=== PATIENT | female | born 1960 | race Caucasian/White ===

== ENCOUNTER 2022-10-30 12:16 | Inpatient (IN) ==
[2022-10-30] MEDS ORDERED: SODIUM CHLORIDE 0.9% 1000ML 1,000 ML IV ONE (14:35)
[2022-10-30] MEDS ORDERED: MoRPHine SULFATE 10 MG/ML CARP/VIAL IV STA (14:35)
[2022-10-30] MEDS ORDERED: ONDANSETRON INJ 2 MG/ML 2 ML VIAL IV SCH (14:35)
[2022-10-30] MEDS ORDERED: ONDANSETRON INJ 2 MG/ML 2 ML VIAL IV STA (14:35)
[2022-10-30] MEDS ORDERED: MoRPHine SULFATE 10 MG/ML CARP/VIAL IV SCH (14:35)
--- NOTE | 2022-10-30 14:38 | Emergency Department Note ---
Impression & Plan Abdominal pain ED Provider Note NAME: BAKARI NGO AGE: 62 SEX: F : 1960 ARRIVES VIA: Walk-In INFORMANT: Patient ED PROVIDER(S): Gianni Cueto DO CHIEF COMPLAINT: abdominal pain HPI: Patient is a 62-year-old female who presents ER for periumbilical abdominal pain that radiates through to the back. Its associated with nausea and vomiting. She had this about a month ago and was diagnosed with pancreatitis. She notes that since then she was doing better until about 2 to 3 days ago. She notes she has been unable to keep anything down since then. She is not eating or drinking. Denies any chest pain or shortness of breath. No dysuria, urgency, or frequency. No other exacerbating or remitting factors. PAST MEDICAL HISTORY:See Below PAST SURGICAL HISTORY:See Below FAMILY HISTORY:See Below SOCIAL HISTORY:See Below HOME MEDICATIONS:See Below ALLERGIES:See Below VITALS:See Below PHYSICAL EXAMINATION: GENERAL: Sitting up in bed, alert, moderate distress holding abdomen EYE EXAM: normal conjunctiva. OROPHARYNX: mucous membranes are moist NECK: supple, no nuchal rigidity, no adenopathy, non-tender LUNGS: Clear to auscultation. Normal chest wall mechanics HEART: no murmurs, S1 normal and S2 normal ABDOMEN: abdomen soft, TTP throughout abdomen, normo-active bowel sounds, no masses, no rebound or guarding. BACK: Back is symmetrical on inspection and there is no deformity, no midline tenderness, no CVA tenderness. SKIN: no rashes and no bruising UPPER EXTREMITIES: upper extremities are grossly normal. LOWER EXTREMITIES: No pitting edema. NEURO EXAM: Normal sensorium, cranial nerves II-XII grossly intact, normal speech, no gross weakness of arms, no gross weakness of legs. MEDICAL DECISION MAKING: Patient is a 62-year-old female who presents ER for periumbilical abdominal pain radiating through to the back. IV was established blood work was obtained. Labs show mild leukopenia 4.3. No significant anemia. BMP along with LFTs bilirubin and lipase is unremarkable. UA was unremarkable. CT of the abdomen pelvis shows thickening of the colon. No obstruction. Patient was given IV fluids and morphine x2. She is also given Zofran. Still unable to eat or drink. Discussed with patient and the hospitalist Dr. Lorena Garcia for further evaluation management and treatment. Triage Nursing notes reviewed. Limited review of prior medical records performed Vital Signs: reviewed and remarkable for HTN Differential diagnosis: Differential diagnoses includes but is not limited to gastritis, peptic ulcer disease, GERD, gallbladder disease, pancreatitis, small bowel obstruction, appendicitis, diverticulitis, hernia, urinary tract infection, torsion, perforation, trauma, infectious. ER treatment provided: See below Diagnostics interpreted by me include EKG and cardiac monitoring as listed below: -Cardiac Monitoring: An order was placed for continuous cardiac monitoring. The monitor shows a rate of 70 with sinus rhythm. -ECG: none -Laboratory studies:Interpreted by me as stated above in MDM and shown below. Imaging studies: Xrays: As interpreted by me:none CTs show: CT abdomen pelvis per my read showed no obvious bowel obstruction Consultation(s): As described in MDM Procedures:none Critical Care: None Past Med/Surg History Medical History (Updated 10/30/22 @ 18:23 by Gianni Cueto DO) IBS (irritable bowel syndrome) Surgical History (Updated 09/27/21 @ 12:04 by Hayden Paula MA) H/O cardiac catheterization H/O hernia repair H/O tubal ligation H/O: hysterectomy Hx of cholecystectomy S/P coronary artery stent placement Family History (Updated 09/27/21 @ 12:06 by Hayden Paula MA) Mother Hypertension Respiratory arrest Coronary heart disease Father Cancer Sister Diabetes Multiple sclerosis Social History (Updated 02/25/20 @ 13:13 by Jovanna Cook) Smoking Status: Former smoker packs per day: 1; Hx Alcohol Use: No Hx Substance Use: No Preferred Language: Estonian Feels Safe at Home: Yes Allergies Allergies Allergy/AdvReac Type Severity Reaction Status Date / Time bupropion [From Wellbutrin] Allergy Mild Hallucinati Verified 10/30/22 15:47 ng dicyclomine [From Bentyl] Allergy Mild Vomiting Verified 10/30/22 15:47 divalproex sodium Allergy Mild Vomiting Verified 10/30/22 15:47 [From Depakote] ketorolac [From Toradol] Allergy Mild can not Verified 10/30/22 15:47 void pregabalin [From Lyrica] Allergy Mild Hallucinati Verified 10/30/22 15:47 ng strawberry Allergy Mild Hives Verified 10/30/22 15:47 tramadol Allergy Mild can not Verified 10/30/22 15:47 void ziprasidone [From Geodon] Allergy Mild Vomiting Verified 10/30/22 15:47 Iodinated Contrast Media Allergy STOP Verified 10/30/22 15:47 BREATHING metronidazole Allergy VOMITS Verified 10/30/22 15:47 nitrofurantoin Allergy VOMITS Verified 04/22/11 19:23 Home Meds Home Medications Medication Instructions Recorded Confirmed gabapentin 800 mg tablet 800 mg PO QID 10/30/22 10/30/22 insulin glargine 100 unit/mL (3 0 unit subcut HS Per sliding scale 10/30/22 10/30/22 mL) subcutaneous pen (Lantus hs Solostar U-100 Insulin) insulin lispro 100 unit/mL 0 unit subcut TIDM PRN Sliding 10/30/22 10/30/22 subcutaneous pen (Humalog KwikPen scale with bsg (U-100) Insulin) losartan 25 mg tablet 25 mg PO DAILY 10/30/22 10/30/22 methocarbamol 500 mg tablet 1,000 mg PO HS PRN Spasms 10/30/22 10/30/22 metoprolol succinate 25 mg 37.5 mg PO DAILY 10/30/22 10/30/22 tablet,extended release 24 hr ondansetron 4 mg disintegrating 4 mg translingual Q8 PRN Nausea 10/30/2210/15 tablet oxycodone-acetaminophen 7.5 mg-325 1 tab PO Q8 PRN Pain 10/30/22 10/30/22 mg tablet pantoprazole 40 mg tablet,delayed 40 mg PO DAILY 10/30/22 10/30/22 release sertraline 100 mg tablet 100 mg PO DAILY 10/30/22 10/30/22 trazodone 100 mg tablet 100 mg PO HS 10/30/22 10/30/22 Results & Data (ED) Vital Signs Vital Signs - 24 hr 10/30/22 12:18 10/30/22 14:24 10/30/22 15:32 Temperature 36.9 C Temperature Source Temporal Artery Scan Pulse Rate 83 Pulse Rate [Apical] 63 64 Respiratory Rate 18 14 21 Respiratory Effort / Characteristics Non-Labored Spontaneous Respiratory Depth Normal Respiratory Pattern Regular Blood Pressure 191/86 H Blood Pressure [Right Arm] 187/103 H 187/115 H Blood Pressure Mean 121 Blood Pressure Mean [Right Arm] 131 139 Pulse Oximetry 98 96 96 Oxygen Delivery Method Room Air Room Air Room Air Sepsis Recent Fever Within 48 Hours No Sepsis New/Unexplained Change in Mental Status No Sepsis Action Taken by Nursing No Action Required 10/30/22 15:54 10/30/22 15:32 10/30/22 16:01 Temperature Temperature Source Pulse Rate 53 L 65 62 Pulse Rate [Apical] Respiratory Rate 24 14 Respiratory Effort / Characteristics Respiratory Depth Respiratory Pattern Blood Pressure 187/115 H 194/104 H Blood Pressure [Right Arm] Blood Pressure Mean 139 134 Blood Pressure Mean [Right Arm] Pulse Oximetry 96 98 Oxygen Delivery Method Room Air Room Air Sepsis Recent Fever Within 48 Hours Sepsis New/Unexplained Change in Mental Status Sepsis Action Taken by Nursing 10/30/22 17:01 10/30/22 17:56 10/30/22 18:01 Temperature Temperature Source Pulse Rate 61 61 58 L Pulse Rate [Apical] Respiratory Rate 14 12 16 Respiratory Effort / Characteristics Respiratory Depth Respiratory Pattern Blood Pressure 159/103 H 187/105 H 155/118 H Blood Pressure [Right Arm] Blood Pressure Mean 121 132 130 Blood Pressure Mean [Right Arm] Pulse Oximetry 98 98 97 Oxygen Delivery Method Room Air Room Air Room Air Sepsis Recent Fever Within 48 Hours Sepsis New/Unexplained Change in Mental Status Sepsis Action Taken by Nursing 10/30/22 18:31 10/30/22 19:00 Temperature Temperature Source Pulse Rate 70 61 Pulse Rate [Apical] Respiratory Rate 12 17 Respiratory Effort / Characteristics Respiratory Depth Respiratory Pattern Blood Pressure 186/125 H 183/101 H Blood Pressure [Right Arm] Blood Pressure Mean 145 128 Blood Pressure Mean [Right Arm] Pulse Oximetry 94 98 Oxygen Delivery Method Room Air Room Air Sepsis Recent Fever Within 48 Hours Sepsis New/Unexplained Change in Mental Status Sepsis Action Taken by Nursing Laboratory Data 10/30/22 14:45 10/30/22 14:45 Lab Results 10/30/22 10/30/22 10/30/22 Range/Units 14:45 14:45 15:28 WBC 4.39 L (4.8-10.8) K/ul RBC 4.72 (4.20-5.40) M/uL Hgb 14.9 (12.0-16.0) g/dl Hct 41.5 (37.0-47.0) % MCV 87.9 (80.0-100.0) fL MCH 31.6 (25.0-34.0) pg MCHC 35.9 (32.0-36.0) g/dL RDW Std Deviation 36.7 (36.4-46.3) fL RDW Coeff of [place] 11.5 (11.5-14.5) % Plt Count 190 (130-400) K/uL MPV 9.9 (9.4-12.4) fL Immature Gran % (Auto) 0.2 % Neut % (Auto) 50.3 % Lymph % (Auto) 36.0 % [place] % (Auto) 8.9 % Eos % (Auto) 3.9 % Baso % (Auto) 0.7 % Neut # (Auto) 2.21 (1.40-6.50) K/uL Lymph # (Auto) 1.58 (1.2-3.4) K/uL [place] # (Auto) 0.39 (0.11-0.59) K/uL Eos # (Auto) 0.17 (0-0.50) K/uL Baso # (Auto) 0.03 (0-0.2) K/uL Immature Gran # (Auto) 0.01 (0.01-0.20) K/uL Sodium 139 (136-145) mmol/L Potassium 3.5 (3.5-5.1) mmol/L Chloride 103 (98-107) mmol/L Carbon Dioxide 29 (21-32) mmol/L Anion Gap 7 (3-11) BUN 10 (6-23) mg/dl Creatinine 0.68 (0.6-1.2) mg/dl Est Cr Clr Drug Dosing 91.2 ml/min Est GFR ( Amer) 108.7 ml/min Est GFR (Non-Af Amer) 93.7 ml/min BUN/Creatinine Ratio 14.7 (10-20) Glucose 179 H (70-99(Fasting)) mg/dl Calcium 9.4 (8.6-10.3) mg/dl Total Bilirubin 0.6 (0.2-1.0) mg/dl AST 15 (13-39) U/L ALT 10 (7-52) U/L Alkaline Phosphatase 73 (34-104) U/L Total Protein 7.2 (6.0-8.3) gm/dl Albumin 4.3 (3.4-5.0) gm/dl Globulin 2.9 (2.5-4.0) gm/dl Albumin/Globulin Ratio 1.5 (0.9-2) Lipase 31 (11-82) U/L Urine Color Dark Yellow Urine Appearance Clear (Clear) Urine pH 5.5 (4.5-7.5) Ur Specific [place] 1.032 H (1.000-1.030) Urine Protein Trace H (Negative) Urine Glucose (UA) 1+ H (Negative) Urine Ketones Trace H (Negative) Urine Blood Negative (Negative) Urine Nitrite Negative (Negative) Urine Bilirubin Negative (Negative) Urine Urobilinogen Negative (Negative) Ur Leukocyte Esterase Negative (Negative) Urine WBC (Auto) 1-5 (0-5) /hpf Urine RBC (Auto) 0-4 (0-4) /hpf U Hyaline Cast (Auto) 1-5 (0-5) /lpf U Epithel Cells (Auto) >30 H (0-5) /lpf Urine Bacteria (Auto) Negative (Negative) Administered Medications Discontinued Medications Sodium Chloride (Nss 1000ml) 1,000 mls @ 999 mls/hr IV .Q1H1M ONE Stop: 10/30/22 15:35 Last Infusion: 10/30/22 19:18 Dose: 0 mls/hr Documented By: [facility] Admin: 10/30/22 17:06 Dose: 999 mls/hr Documented By: [facility] Morphine Sulfate (Morphine Sulfate 10 Mg/Ml Carp/Vial) 6 mg IV 1435 MOOSE Stop: 10/30/22 17:45 Last Admin: 10/30/22 17:11 Dose: Not Given Documented By: [facility] Morphine Sulfate (Morphine Sulfate 4 Mg/Ml 1 Ml Carp\Vial) 4 mg IV NOW STA Stop: 10/30/22 18:22 Last Admin: 10/30/22 19:15 Dose: 4 mg Documented By: [facility] Ondansetron HCl (Ondansetron Inj 2 Mg/Ml 2 Ml Vial) 4 mg IV 1435 MOOSE Stop: 10/30/22 17:45 Last Admin: 10/30/22 17:11 Dose: Not Given Documented By: [facility] Imaging Data Radiologist's Impression: Abdomen/Pelvis CT 10/30/22 14:[address] WITHOUT CONTRAST CT DOSE: 1258.48 mGy.cm HISTORY: Generalized abdominal pain. pancreatitis TECHNIQUE: Multiaxial CT images of the abdomen and pelvis were performed without contrast. A dose lowering technique was utilized adhering to the principles of ALARA. COMPARISON STUDY: Abdomen and pelvis CT 04/14/2011. FINDINGS: Calcified granuloma seen within the left lower lobe. No pneumoperitoneum. No pneumatosis. No acute fractures identified. Prior mesh repair of a midline ventral hernia. Prior cholecystectomy. The unenhanced liver, adrenal glands, pancreas, and kidneys are within normal limits. No renal or ureteral stones. No hydronephrosis. There are few punctate calcified granulomas within the spleen. No peripancreatic inflammatory change to suggest acute pancreatitis. Normal caliber abdominal aorta with moderate calcified plaque. No retroperitoneal or pelvic lymphadenopathy. No pelvic free fluid. Prior hysterectomy. Mild bladder wall thickening. Suboptimal evaluation for bowel pathology due to the lack of intravenous and oral contrast. Questionable thickening of the colon is likely due to underdistention. No pericolonic inflammatory change to suggest an acute colitis. No evidence for a bowel obstruction. Normal appendix. IMPRESSION: 1. No CT evidence for acute pancreatitis at this time. 2. No definite bowel wall thickening or obstruction. Questionable thickening of the colon is likely due to underdistention. A low-grade colitis is considered less likely. 3. Normal appendix. 4. Mild bladder wall thickening. Recommend correlation with urinalysis. 5. Prior cholecystectomy and hysterectomy. ACT 112: Negative or not required by law. Electronically signed by: Robin Byrne M.D. 10/30/2022 6:17 PM Discharge Plan Visit Data Chief Complaint: Abdominal Pain Stated Complaint: COUGH,NOT EATING,ABD PAIN, ED Provider: Gianni Cueto Discharge Problem: Abdominal pain Forms Stand Alone Forms: My [facility] Prescriptions Prescriptions: No Action methocarbamol 500 mg tablet 1,000 mg PO HS PRN (Reason: Spasms) sertraline 100 mg tablet 100 mg PO DAILY gabapentin 800 mg tablet 800 mg PO QID trazodone 100 mg tablet 100 mg PO HS pantoprazole 40 mg tablet,delayed release (DR/EC) 40 mg PO DAILY losartan 25 mg tablet 25 mg PO DAILY metoprolol succinate 25 mg tablet extended release 24 hr 37.5 mg PO DAILY oxycodone-acetaminophen 7.5-325 mg tablet 1 tab PO Q8 PRN (Reason: Pain) ondansetron 4 mg tablet,disintegrating 4 mg translingual Q8 PRN (Reason: Nausea) insulin lispro [Humalog KwikPen Insulin] 100 unit/mL insulin pen 0 unit SUBCUT TIDM PRN (Reason: Sliding scale with bsg) insulin glargine [Lantus Solostar U-100 Insulin] 100 unit/mL (3 mL) insulin pen 0 unit SUBCUT HS Referrals Referrals: Jair Adam [Non-Staff] -
[2022-10-30 15:05] LABS: Basophils # (auto) 0.03 K/uL (0-0.2); Basophils % (auto) 0.7 %; Eosinophils # (auto) 0.17 K/uL (0-0.50); Eosinophils % (auto) 3.9 %; Hematocrit (blood only) 41.5 % (37.0-47.0); Hemoglobin 14.9 g/dl (12.0-16.0); Immature Granulocytes # (auto) 0.01 K/uL (0.01-0.20); Immature Granulocytes % (auto) 0.2 %; Lymphocytes # (auto) 1.58 K/uL (1.2-3.4); Mean Corpuscular Hemoglobin 31.6 pg (25.0-34.0); Mean Corpuscular Hgb Conc 35.9 g/dL (32.0-36.0); Mean Corpuscular Volume 87.9 fL (80.0-100.0); Mean Platelet Volume 9.9 fL (9.4-12.4); Monocytes # (auto) 0.39 K/uL (0.11-0.59); Monocytes % (auto) 8.9 %; Neutrophils # (auto) 2.21 K/uL (1.40-6.50); Neutrophils % (auto) 50.3 %; Platelet Count 190 K/uL (130-400); RDW Coefficient of Variation 11.5 % (11.5-14.5); RDW Standard Deviation 36.7 fL (36.4-46.3); Red Blood Count 4.72 M/uL (4.20-5.40); White Blood Count 4.39 K/ul (4.8-10.8)
[2022-10-30 15:21] LABS: Albumin Globulin Ratio 1.5 (0.9-2); Albumin Level 4.3 gm/dl (3.4-5.0); BUN Creatinine Ratio 14.7 (10-20); Bilirubin,Total 0.6 mg/dl (0.2-1.0); Calcium 9.4 mg/dl (8.6-10.3); Creatinine Clr Calc Pharmacy 91.2 ml/min; Est GFR (African American) 108.7 ml/min; Est GFR (Non-African American) 93.7 ml/min; Globulin 2.9 gm/dl (2.5-4.0); Potassium 3.5 mmol/L (3.5-5.1); Total Protein 7.2 gm/dl (6.0-8.3)
[2022-10-30 15:53] LABS: Appearance Urine Clear (Clear); Bacteria Urine Automated Negative (Negative); Bilirubin Urine Negative (Negative); Blood Urine Negative (Negative); Color Urine Dark Yellow; Epithelial Cell Urine Auto >30 /lpf (0-5); Glucose Urine UA 1+ (Negative); Ketones Urine Trace (Negative); Leukocyte Esterase Urine Negative (Negative); Nitrite Urine Negative (Negative); Protein Urine Trace (Negative); RBC Urine Automated 0-4 /hpf (0-4); Specific Gravity Urine 1.032 (1.000-1.030); Urobilinogen Urine Negative (Negative); pH Urine 5.5 (4.5-7.5)
--- NOTE | 2022-10-30 18:19 | CT Scan Report ---
ABDOMEN AND PELVIS CT WITHOUT CONTRAST CT DOSE: 1258.48 mGy.cm HISTORY: Generalized abdominal pain. pancreatitis TECHNIQUE: Multiaxial CT images of the abdomen and pelvis were performed without contrast. A dose lo wering technique was utilized adhering to the principles of ALARA. COMPARISON STUDY: Abdomen and pelvis CT 04/14/2011. FINDINGS: Calcified granuloma seen within the left lower lobe. No pneumoperitoneum. No pneumatosis. N o acute fractures identified. Prior mesh repair of a midline ventral hernia. Prior cholecystectomy. T he unenhanced liver, adrenal glands, pancreas, and kidneys are within normal limits. No renal or uret eral stones. No hydronephrosis. There are few punctate calcified granulomas within the spleen. No per ipancreatic inflammatory change to suggest acute pancreatitis. Normal caliber abdominal aorta with mo derate calcified plaque. No retroperitoneal or pelvic lymphadenopathy. No pelvic free fluid. Prior hy sterectomy. Mild bladder wall thickening. Suboptimal evaluation for bowel pathology due to the lack o f intravenous and oral contrast. Questionable thickening of the colon is likely due to underdistentio n. No pericolonic inflammatory change to suggest an acute colitis. No evidence for a bowel obstructio n. Normal appendix. IMPRESSION: 1. No CT evidence for acute pancreatitis at this time. 2. No definite bowel wall thickening or obstruction. Questionable thickening of the colon is likely d ue to underdistention. A low-grade colitis is considered less likely. 3. Normal appendix. 4. Mild bladder wall thickening. Recommend correlation with urinalysis. 5. Prior cholecystectomy and hysterectomy. ACT 112: Negative or not required by law. Electronically signed by: Robin Byrne M.D. 10/30/2022 6:17 PM
[2022-10-30] MEDS ORDERED: MoRPHine SULFATE 4 MG/ML 1 ML CARP\\VIAL IV STA (18:21)
--- NOTE | 2022-10-30 20:01 | History & Physical Report ---
Date of Service October 30, 2022 Assessment & Plan (1) Abdominal pain: Plan: 62yo female with recent hospital admission for acute pancreatitis and ongoing abdominal pain and nausea. Etiology uncertain - labs are largely unremarkable as is CT scan. ?resolving pancreatitis, intestinal ischemia/angina vs abdominal migraine? to be considered No laboratory or radiographic evidence to suggest acute pancreatitis - will not treat as such at this time. -Admit to medical -Check Lactate, ESR, CRP -Check Lyme -Check Mg and PO4 -Check TSH -Clear liquids advance as tolerated -Zofran PRN -Morphine PRN -LR at 125mL/hr x 2L (2) Diabetes: Plan: Chronic. Mildly elevated blood sugar -Lantus 5u BID -ISS -Check HgbA1C (3) GERD with esophagitis: Plan: Chronic. Stable -Continue Protonix 40mg po daily (4) Hypertension: Plan: Chronic. Well controlled -Continue Metoprolol 37.5mg po BID -Continue Losartan -Monitor History of Present Illness Chief Complaint: Abdominal pain Primary Care Provider: DO Mercy Knutsondavid is a 62yo female with history of HTN, HLP, DM, GERD, Crohns, CAD and Bipolar presenting with severe abdominal pain and decreased PO intake for several days. Patient reports that she was recently admitted to [facility] for 6 days due to acute pancreatitis. She reports that her lab values were largely normal but her CT can showed significant inflammation of the pancreas. Patient with no clear source for the pancreatitis - no EtOH, s/p cholecystectomy, no h/o prior. Thought possibly secondary to medications - she was taken off her Atorvastatin, Fenofibrate and Lisinopril and started on Losartan. She was discharged home. Since returning home, patient reports that she has been unable to eat due to severe nausea and abdominal pain. She reports that the only thing she's eaten in the last several days is a piece of toast with peanut butter. She has been drinking Sprite to keep her blood sugar up. Her pain is constant but is worse after attempting to eat. It is largely located periumbilically and upper abdomen. 10/10 in severity, stabbing and aching. She has nausea but no vomiting. She has also had loose stools, non-bloody/non-mucoid. She reports having a "head cold" for the last 3 days. She reports waking up with significant diaphoresis the last two mornings - drenched in sweat. Her blood sugar was fine both days. She also reports cough, congestion as well as extreme weakness and fatigue. She denies fever. No additional complaints at this time. No sick contacts She reports she has been taking Zofran at home. In the ER she is afebrile, HD stable, NAD. ER Course: Morphine 4mg IV Morphine 6mg IV NSS Zofran Allergies Allergy/AdvReac Type Severity Reaction Status Date / Time bupropion [From Wellbutrin] Allergy Mild Hallucinati Verified 10/30/22 15:47 ng dicyclomine [From Bentyl] Allergy Mild Vomiting Verified 10/30/22 15:47 divalproex sodium Allergy Mild Vomiting Verified 10/30/22 15:47 [From Depakote] ketorolac [From Toradol] Allergy Mild can not Verified 10/30/22 15:47 void pregabalin [From Lyrica] Allergy Mild Hallucinati Verified 10/30/22 15:47 ng strawberry Allergy Mild Hives Verified 10/30/22 15:47 tramadol Allergy Mild can not Verified 10/30/22 15:47 void ziprasidone [From Geodon] Allergy Mild Vomiting Verified 10/30/22 15:47 Iodinated Contrast Media Allergy STOP Verified 10/30/22 15:47 BREATHING metronidazole Allergy VOMITS Verified 10/30/22 15:47 nitrofurantoin Allergy VOMITS Verified 04/22/11 19:23 Home Medications Medication Instructions Recorded Confirmed Type gabapentin 800 mg tablet 800 mg PO QID 10/30/22 10/30/22 History insulin glargine 100 unit/mL (3 0 unit subcut HS Per sliding scale 10/30/22 History mL) subcutaneous pen (Lantus hs Solostar U-100 Insulin) insulin lispro 100 unit/mL 0 unit subcut TIDM PRN Sliding 10/30/22 10/30/22 History subcutaneous pen (Humalog KwikPen scale with bsg (U-100) Insulin) losartan 25 mg tablet 25 mg PO DAILY 10/30/22 10/30/22 History methocarbamol 500 mg tablet 1,000 mg PO HS PRN Spasms 10/30/22 10/30/22 History metoprolol succinate 25 mg 37.5 mg PO DAILY 10/30/22 10/30/22 History tablet,extended release 24 hr ondansetron 4 mg disintegrating 4 mg translingual Q8 PRN Nausea 10/30/22 10/30/22 History tablet oxycodone-acetaminophen 7.5 mg-325 1 tab PO Q8 PRN Pain 10/30/22 10/30/22 History mg tablet pantoprazole 40 mg tablet,delayed 40 mg PO DAILY 10/30/22 10/30/22 History release sertraline 100 mg tablet 100 mg PO DAILY 10/30/22 10/30/22 History trazodone 100 mg tablet 100 mg PO HS 10/30/22 10/30/22 History Past Med/Surg History Medical History (Updated 10/30/22 @ 20:41 by Mercy Garcia DO) CAD (coronary artery disease) Crohn's colitis Diabetes GERD with esophagitis Hyperlipidemia Hypertension IBS (irritable bowel syndrome) Surgical History H/O cardiac catheterization H/O hernia repair H/O tubal ligation H/O: hysterectomy Hx of cholecystectomy S/P coronary artery stent placement Family History Mother Hypertension Respiratory arrest Coronary heart disease Father Cancer Sister Diabetes Multiple sclerosis Social History Smoking Status: Former smoker packs per day: 1; Hx Alcohol Use: No Hx Substance Use: No Preferred Language: Taiwanese Feels Safe at Home: Yes Review of Systems Review of Systems: All systems reviewed & are unremarkable except as noted in HPI & below Physical Exam Physical Exam: General: patient resting comfortably, NAD, non-toxic in appearance, AA&O x 4 Skin: warm, dry, intact, petechial rash present on left wrist HEENT: NC/AT, PERRL, EOMI, anicteric sclera, conjunctiva without injection, external ear normal to inspection and nontender, nares patent, moist mucus membranes, dentition intact, no oropharyngeal lesions, neck supple, trachea midline, no LAD, no thyromegaly, no JVD Heart: +S1/S2, regular, no m/r/g Lungs: equal air entry bilaterally, no rales/rhonchi/wheezes Abd: +BS, soft, non-distended, tender with palpation of periumbilical region, upper abdomen and bilateral flanks with voluntary guarding Ext: warm, 2+ pulses in UE/LE bilaterally, no clubbing/cyanosis or edema Neuro: nonfocal, patient AA&O x 4, speech intact, no facial droop, moving all extremities on command with equal strength 5/5 Results & Data Results & Data Vital Signs (Past 12 Hours) Vital Signs Temp Pulse Pulse Resp BP BP Pulse Ox 10/30/22 19:40 57 L 10/30/22 19:00 61 17 183/101 H 98 10/30/22 18:31 70 12 186/125 H 94 10/30/22 18:01 58 L 16 155/118 H 97 10/30/22 17:56 61 12 187/105 H 98 10/30/22 17:01 61 14 159/103 H 98 10/30/22 16:01 62 14 194/104 H 98 10/30/22 15:32 65 24 187/115 H 96 10/30/22 15:54 53 L 10/30/22 15:32 64 21 187/115 H 96 10/30/22 14:24 63 14 187/103 H 96 10/30/22 12:18 36.9 C 83 18 191/86 H 98 O2 Del Method 10/30/22 19:40 10/30/22 19:00 Room Air 10/30/22 18:31 Room Air 10/30/22 18:01 Room Air 10/30/22 17:56 Room Air 10/30/22 17:01 Room Air 10/30/22 16:01 Room Air 10/30/22 15:32 Room Air 10/30/22 15:54 10/30/22 15:32 Room Air 10/30/22 14:24 Room Air 10/30/22 12:18 Room Air Laboratory Results Laboratory Results WBC 4.39 K/ul (4.8-10.8) L 10/30/22 14:45 RBC 4.72 M/uL (4.20-5.40) 10/30/22 14:45 Hgb 14.9 g/dl (12.0-16.0) 10/30/22 14:45 Hct 41.5 % (37.0-47.0) 10/30/22 14:45 MCV 87.9 fL (80.0-100.0) 10/30/22 14:45 MCH 31.6 pg (25.0-34.0) 10/30/22 14:45 MCHC 35.9 g/dL (32.0-36.0) 10/30/22 14:45 RDW Std Deviation 36.7 fL (36.4-46.3) 10/30/22 14:45 RDW Coeff of [place] 11.5 % (11.5-14.5) 10/30/22 14:45 Plt Count 190 K/uL (130-400) 10/30/22 14:45 MPV 9.9 fL (9.4-12.4) 10/30/22 14:45 Immature Gran % (Auto) 0.2 % 10/30/22 14:45 Neut % (Auto) 50.3 % 10/30/22 14:45 Lymph % (Auto) 36.0 % 10/30/22 14:45 [place] % (Auto) 8.9 % 10/30/22 14:45 Eos % (Auto) 3.9 % 10/30/22 14:45 Baso % (Auto) 0.7 % 10/30/22 14:45 Neut # (Auto) 2.21 K/uL (1.40-6.50) 10/30/22 14:45 Lymph # (Auto) 1.58 K/uL (1.2-3.4) 10/30/22 14:45 [place] # (Auto) 0.39 K/uL (0.11-0.59) 10/30/22 14:45 Eos # (Auto) 0.17 K/uL (0-0.50) 10/30/22 14:45 Baso # (Auto) 0.03 K/uL (0-0.2) 10/30/22 14:45 Immature Gran # (Auto) 0.01 K/uL (0.01-0.20) 10/30/22 14:45 Sodium 139 mmol/L (136-145) 10/30/22 14:45 Potassium 3.5 mmol/L (3.5-5.1) 10/30/22 14:45 Chloride 103 mmol/L (98-107) 10/30/22 14:45 Carbon Dioxide 29 mmol/L (21-32) 10/30/22 14:45 Anion Gap 7 (3-11) 10/30/22 14:45 BUN 10 mg/dl (6-23) 10/30/22 14:45 Creatinine 0.68 mg/dl (0.6-1.2) 10/30/22 14:45 Est Cr Clr Drug Dosing 91.2 ml/min 10/30/22 14:45 Est GFR ( Amer) 108.7 ml/min 10/30/22 14:45 Est GFR (Non-Af Amer) 93.7 ml/min 10/30/22 14:45 BUN/Creatinine Ratio 14.7 (10-20) 10/30/22 14:45 Glucose 179 mg/dl (70-99(Fasting)) H 10/30/22 14:45 Calcium 9.4 mg/dl (8.6-10.3) 10/30/22 14:45 Total Bilirubin 0.6 mg/dl (0.2-1.0) 10/30/22 14:45 AST 15 U/L (13-39) 10/30/22 14:45 ALT 10 U/L (7-52) 10/30/22 14:45 Alkaline Phosphatase 73 U/L (34-104) 10/30/22 14:45 Total Protein 7.2 gm/dl (6.0-8.3) 10/30/22 14:45 Albumin 4.3 gm/dl (3.4-5.0) 10/30/22 14:45 Globulin 2.9 gm/dl (2.5-4.0) 10/30/22 14:45 Albumin/Globulin Ratio 1.5 (0.9-2) 10/30/22 14:45 Lipase 31 U/L (11-82) 10/30/22 14:45 Urine Color Dark Yellow 10/30/22 15:28 Urine Appearance Clear (Clear) 10/30/22 15:28 Urine pH 5.5 (4.5-7.5) 10/30/22 15:28 Ur Specific Cat[place] 1.032 (1.000-1.030) H 10/30/22 15:28 Urine Protein Trace (Negative) H 10/30/22 15:28 Urine Glucose (UA) 1+ (Negative) H 10/30/22 15:28 Urine Ketones Trace (Negative) H 10/30/22 15:28 Urine Blood Negative (Negative) 10/30/22 15:28 Urine Nitrite Negative (Negative) 10/30/22 15:28 Urine Bilirubin Negative (Negative) 10/30/22 15:28 Urine Urobilinogen Negative (Negative) 10/30/22 15:28 Ur Leukocyte Esterase Negative (Negative) 10/30/22 15:28 Urine WBC (Auto) 1-5 /hpf (0-5) 10/30/22 15:28 Urine RBC (Auto) 0-4 /hpf (0-4) 10/30/22 15:28 U Hyaline Cast (Auto) 1-5 /lpf (0-5) 10/30/22 15:28 U Epithel Cells (Auto) >30 /lpf (0-5) H 10/30/22 15:28 Urine Bacteria (Auto) Negative (Negative) 10/30/22 15:28 Impressions Abdomen/Pelvis CT 10/30/22 14:[address] WITHOUT CONTRAST CT DOSE: 1258.48 mGy.cm HISTORY: Generalized abdominal pain. pancreatitis TECHNIQUE: Multiaxial CT images of the abdomen and pelvis were performed without contrast. A dose lowering technique was utilized adhering to the principles of ALARA. COMPARISON STUDY: Abdomen and pelvis CT 04/14/2011. FINDINGS: Calcified granuloma seen within the left lower lobe. No pneumoperitoneum. No pneumatosis. No acute fractures identified. Prior mesh repair of a midline ventral hernia. Prior cholecystectomy. The unenhanced liver, adrenal glands, pancreas, and kidneys are within normal limits. No renal or ureteral stones. No hydronephrosis. There are few punctate calcified granulomas within the spleen. No peripancreatic inflammatory change to suggest acute pancreatitis. Normal caliber abdominal aorta with moderate calcified plaque. No retroperitoneal or pelvic lymphadenopathy. No pelvic free fluid. Prior hyst erectomy. Mild bladder wall thickening. Suboptimal evaluation for bowel pathology due to the lack of intravenous and oral contrast. Questionable thickening of the colon is likely due to underdistention. No pericolonic inflammatory change to suggest an acute colitis. No evidence for a bowel obstruction. Normal appendix. IMPRESSION: 1. No CT evidence for acute pancreatitis at this time. 2. No definite bowel wall thickening or obstruction. Questionable thickening of the colon is likely due to underdistention. A low-grade colitis is considered less likely. 3. Normal appendix. 4. Mild bladder wall thickening. Recommend correlation with urinalysis. 5. Prior cholecystectomy and hysterectomy. ACT 112: Negative or not required by law. Electronically signed by: Robin Byrne M.D. 10/30/2022 6:17 PM PG Care Time/CCT Total # of Minutes Spent Total Time Spent with Patient: Total time spent is greater than 50% in coordination of care (as documented) at patient's floor/unit and/or counseling patient: Coding Level of Care Code 19412 INT INP/OBS CARE 2/55MIN Diagnoses Abdominal pain R10.9 Diabetes E11.9 GERD with esophagitis K21.00 Hypertension I10
[2022-10-30] MEDS ORDERED: DEXTROSE 50% 50 ML SYRINGE IV PRN (22:43)
[2022-10-30] MEDS ORDERED: GLUCOSE 40% GEL 15 GM TUBE PO PRN (22:43)
[2022-10-30] MEDS ORDERED: GLUCOSE 10 TAB/TUBE PO PRN (22:43)
[2022-10-30] MEDS ORDERED: MoRPHine SULFATE 2 MG/ML CARP IV PRN (22:43)
[2022-10-30] MEDS ORDERED: GLUCAGON FOR INJ 1 MG VIAL SQ PRN (22:43)
[2022-10-30] MEDS ORDERED: CARBOHYDRATES FOR HYPOGLYCEMIA PO PRN (22:43)
[2022-10-30] MEDS ORDERED: METHOCARBAMOL 500 MG TABLET PO PRN (22:43)
[2022-10-30] MEDS: MoRPHine SULFATE 4 MG/ML 1 ML CARP\\VIAL IV PRN (23:43)
[2022-10-30] MEDS: ONDANSETRON INJ 2 MG/ML 2 ML VIAL IV PRN (23:43)
[2022-10-30] MEDS: LACTATED RINGER'S 1,000 ML IV SCH (23:44)
[2022-10-30] MEDS: GABAPENTIN 800 MG TAB PO SCH (23:45)
[2022-10-30] MEDS: traZODone HCL 100 MG TAB PO SCH (23:45)
[2022-10-30 23:46] LABS: C Reactive Protein 0.69 mg/dl (0-0.5); Magnesium 1.7 mg/dl (1.7-2.4); Phosphorus 2.5 mg/dl (2.5-4.9)
[2022-10-31] MEDS: INSULIN ASPART PER UNIT CHARGE SC SCH ×5 (00:05→21:52)
[2022-10-31] MEDS: LANTUS PER UNIT CHARGE SQ SCH ×3 (00:05→21:52)
[2022-10-31] MEDS: MoRPHine SULFATE 4 MG/ML 1 ML CARP\\VIAL IV PRN ×6 (03:45→23:47)
[2022-10-31] MEDS: ONDANSETRON INJ 2 MG/ML 2 ML VIAL IV PRN ×2 (07:54→14:47)
[2022-10-31] MEDS: LACTATED RINGER'S 1,000 ML IV SCH (08:03)
[2022-10-31] MEDS: GABAPENTIN 800 MG TAB PO SCH ×4 (08:06→19:59)
[2022-10-31] MEDS: LOSARTAN POTASSIUM 25 MG TAB PO SCH (08:07)
[2022-10-31] MEDS: METOPROLOL SUCC 25MG EXT REL TAB PO SCH (08:08)
[2022-10-31] MEDS: SERTRALINE HCL 100 MG TABLET PO SCH (08:08)
[2022-10-31 08:30] LABS: Albumin Level 3.6 gm/dl (3.4-5.0); BUN Creatinine Ratio 15.3 (10-20); Bilirubin Direct 0.1 mg/dl (0-0.2); Bilirubin,Total 0.7 mg/dl (0.2-1.0); Calcium 8.6 mg/dl (8.6-10.3); Creatinine Clr Calc Pharmacy 105.3 ml/min; Est GFR (African American) 113.9 ml/min; Est GFR (Non-African American) 98.2 ml/min
--- NOTE | 2022-10-31 08:39 | Hospitalist Progress Note ---
Date of Service October 31, 2022 Assessment & Plan (1) Abdominal pain: Plan: 62 yo female with recent hospital admission for acute pancreatitis with ongoing (and worse) abdominal pain and nausea. Etiology uncertain - labs are largely unremarkable, as is CT scan. No laboratory or radiographic evidence to suggest acute pancreatitis (though CTAP was without contrast due to allergy). Differential includes resolving pancreatitis, intestinal ischemia/angina, abdominal migraine, Crohn's flare. MR angio with contrast ordered to eval for intestinal ischemia. ESR and CRP to see if elevated and perhaps more suggestive of Crohn's flare, if elevated will start steroids. Has had some diarrhea, so will check for infectious diarrhea given recent hospitalization. Continue BID PPI, scheduled Tylenol, and prn morphine/Zofran. Clear liquid diet for now. Have asked GI to evaluate patient as well given undifferentiated symptoms, and also given patient has IBD Hx without current GI doctor. (2) Diabetes: Plan: Chronic. A1c reviewed: elevated at 9%. 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 (3) GERD with esophagitis: Plan: Continue Protonix at BID dosing to see if this helps with upper abdominal symptoms. (4) Hypertension: Plan: Chronic. Well controlled typically, elevated this admission in the setting of pain. Continue Metoprolol 37.5mg po BID, losartan, and follow up with PCP. Admission and Anticipated Discharge Date Admission Date: October 30, 2022 Subjective Patient still with abdominal pain, no better than yesterday, no fevers or chills, now is having some diarrhea, "pea green". Some nausea. Symptoms improved with PRN medications however they return. Physical Exam Constitutional: WD/WN, vitals as above Respiratory: normal respiratory effort, lungs clear to auscultation Cardiovascular: RRR, no murmur, no edema Gastrointestinal (Abdomen): normal BS, abdomen soft, tender in RUQ and LUQ, voluntary guarding, no distension Skin: no rashes, warm and dry Psychiatric: alert and oriented, anxious affect Results & Data Results & Data Vital Signs (Past 12 Hours) Vital Signs Temp Pulse Pulse Resp BP BP Pulse Ox 10/31/22 06:46 36.8 C 53 L 16 169/77 H 93 10/30/22 22:33 36.6 C 73 17 168/96 H 95 10/30/22 22:25 57 L 17 165/103 H 96 10/30/22 22:00 57 L 17 165/103 H 96 10/30/22 21:31 55 L 15 163/91 H 94 10/30/22 21:10 51 L 96 O2 Del Method 10/31/22 06:46 Room Air 10/30/22 22:33 Room Air 10/30/22 22:25 Room Air 10/30/22 22:00 Room Air 10/30/22 21:31 Room Air 10/30/22 21:10 Room Air PG Care Time/CCT Total # of Minutes Spent Total Time Spent with Patient: Total time spent is greater than 50% in coordination of care (as documented) at patient's floor/unit and/or counseling patient: Coding Level of Care Code 29015 SUB INP/OBS CARE 3/50MIN Diagnoses Abdominal pain R10.9 Diabetes E11.9 GERD with esophagitis K21.00 Hypertension I10
[2022-10-31 08:50] LABS: Lyme Ab IgG w/WB Rflx Negative (Negative); Lyme Ab IgM w/WB Rflx Negative (Negative)
[2022-10-31] MEDS ORDERED: PANTOprazole 40 MG TAB PO SCH (09:00)
[2022-10-31 10:42] LABS: Basophils # (auto) 0.03 K/uL (0-0.2); Basophils % (auto) 0.6 %; Eosinophils # (auto) 0.26 K/uL (0-0.50); Eosinophils % (auto) 5.5 %; Hematocrit (blood only) 36.3 % (37.0-47.0); Immature Granulocytes # (auto) 0.02 K/uL (0.01-0.20); Immature Granulocytes % (auto) 0.4 %; Lymphocytes # (auto) 1.62 K/uL (1.2-3.4); Lymphocytes % (auto) 34.1 %; Mean Corpuscular Hemoglobin 31.6 pg (25.0-34.0); Mean Corpuscular Hgb Conc 35.8 g/dL (32.0-36.0); Mean Corpuscular Volume 88.1 fL (80.0-100.0); Mean Platelet Volume 9.8 fL (9.4-12.4); Monocytes # (auto) 0.34 K/uL (0.11-0.59); Monocytes % (auto) 7.2 %; Neutrophils # (auto) 2.48 K/uL (1.40-6.50); Neutrophils % (auto) 52.2 %; Platelet Count 195 K/uL (130-400); RDW Coefficient of Variation 11.6 % (11.5-14.5); RDW Standard Deviation 37.2 fL (36.4-46.3); Red Blood Count 4.12 M/uL (4.20-5.40); White Blood Count 4.75 K/ul (4.8-10.8)
[2022-10-31 10:49] LABS: Estimated Average Glucose 212 mg/dl
--- NOTE | 2022-10-31 11:58 | Electrocardiogram Report ---
Test Reason : Blood Pressure : / mmHG Vent. Rate : 052 BPM Atrial Rate : 052 BPM P-R Int : 146 ms QRS Dur : 076 ms QT Int : 478 ms P-R-T Axes : 036 017 043 degrees QTc Int : 444 ms Sinus bradycardia Otherwise normal ECG When compared with ECG of 22-APR-2011 20:08, Vent. rate has decreased BY 39 BPM Confirmed by Robert Self ([id number]) on 10/31/2022 11:58:07 AM Referred By: REFERRED SELF Confirmed By:Rajeev Self
[2022-10-31] MEDS: ACETAMINOPHEN 1,000 MG/100 ML VIAL IV SCH ×2 (16:52→23:43)
[2022-10-31] MEDS ORDERED: MoRPHine SULFATE 4 MG/ML 1 ML CARP\\VIAL IV PRN (18:12)
[2022-10-31] MEDS ORDERED: EPINEPHrine ADULT AUTO-INJECT 0.3 MG SYR IM PRN (18:51)
[2022-10-31 18:54] LABS: Adenovirus F 40/41 PCR Not Detected (NotDetected); Astrovirus PCR Not Detected (NotDetected); Campylobacter PCR Not Detected (NotDetected); Cryptosporidium PCR Not Detected (NotDetected); Cyclospora cayetanensis PCR Not Detected (NotDetected); Entamoeba histolytica PCR Not Detected (NotDetected); Enteroaggregative E.coli(EAEC) Not Detected (NotDetected); Enteropathogenic E.coli (EPEC) Not Detected (NotDetected); Enterotoxigenic E.coli (ETEC) Not Detected (NotDetected); Giardia lamblia PCR Not Detected (NotDetected); Norovirus GI/GII PCR Not Detected (NotDetected); Plesiomonas shigelloides PCR Not Detected (NotDetected); Rotavirus A PCR Not Detected (NotDetected); Salmonella PCR Not Detected (NotDetected); Sapovirus PCR Not Detected (NotDetected); Shiga-like Toxin E.coli (STEC) Not Detected (NotDetected); Shigella/Enteroinvasive E.coli Not Detected (NotDetected); Vibrio cholerae PCR Not Detected (NotDetected); Vibrio species PCR Not Detected (NotDetected); Yersinia enterocolitica PCR Not Detected (NotDetected)
[2022-10-31] MEDS ORDERED: MoRPHine SULFATE 2 MG/ML CARP IV PRN (18:54)
[2022-10-31] MEDS: oxyCODONE/ACETAMINOPHEN 5mg/325mg TAB PO PRN (19:56)
[2022-10-31] MEDS: traZODone HCL 100 MG TAB PO SCH (19:57)
[2022-10-31] MEDS: PANTOprazole 40 MG TAB PO SCH (20:00)
[2022-10-31] MEDS ORDERED: GADOBUTROL 65ML VIAL IV ONE (21:21)
--- NOTE | 2022-10-31 22:29 | Magnetic Resonance Report ---
Exam(s): MRA ABDOMEN W/WO Contrast IV Amt: 7.5mL Gadavist IV EXAM: MR Angiography Abdomen Without and With Intravenous Contrast CLINICAL HISTORY: Reason for exam: abd pain out of proportion, ? mesenteric ischemia. TECHNIQUE: Magnetic resonance angiography images of the abdomen without and with intravenous contrast. CONTRAST: Patient received 7.5mL Gadavist IV of IV contrast COMPARISON: No relevant prior studies available. FINDINGS: Aortoiliac arteries show normal contrast enhancement and caliber. Celiac artery: Patent Superior mesenteric artery: Patent Inferior mesenteric artery: Patent Bilateral renal arteries: Patent Gastrointestinal tract: No evidence of bowel wall thickening. No bowel distention. No free fluid. No evidence of hepatosplenomegaly. IMPRESSION: No evidence of mesenteric arterial occlusion Electronically signed by: Patrick Neff MD 10/31/22 22:28 PM
[2022-11-01] MEDS: MoRPHine SULFATE 4 MG/ML 1 ML CARP\\VIAL IV PRN ×9 (03:47→21:32)
[2022-11-01] MEDS: ONDANSETRON INJ 2 MG/ML 2 ML VIAL IV PRN ×2 (08:07→19:30)
[2022-11-01] MEDS: ACETAMINOPHEN 1,000 MG/100 ML VIAL IV SCH ×2 (08:07→16:47)
[2022-11-01] MEDS: GABAPENTIN 800 MG TAB PO SCH ×4 (08:12→21:09)
[2022-11-01] MEDS: SERTRALINE HCL 100 MG TABLET PO SCH (08:12)
[2022-11-01] MEDS: LOSARTAN POTASSIUM 25 MG TAB PO SCH (08:14)
[2022-11-01] MEDS: METOPROLOL SUCC 25MG EXT REL TAB PO SCH (08:14)
[2022-11-01] MEDS: PANTOprazole 40 MG TAB PO SCH ×2 (08:14→21:10)
--- NOTE | 2022-11-01 08:50 | Hospitalist Progress Note ---
Date of Service November 01, 2022 Assessment & Plan (1) Abdominal pain: Plan: 62 yo female with recent hospital admission for acute pancreatitis with ongoing (and worse) abdominal pain and nausea. Differential includes resolving pancreatitis, intestinal ischemia/angina, abdominal migraine, Crohn's flare, other cause. Etiology uncertain - labs are largely unremarkable, as is CT scan. No laboratory or radiographic evidence to suggest acute pancreatitis (though CTAP was without contrast due to allergy), perhaps a smoldering chronic process? Symptoms are similar to episode of pancreatitis during recent hospitalization at outside facility. MR angio with contrast ordered to eval for intestinal ischemia, negative. ESR and CRP not elevated, not suspicious of bacterial infection or Crohn's flare given this. Has had some diarrhea, stool Biofire and C diff negative this admission. Continue BID PPI, scheduled Tylenol, and prn morphine/Zofran. Will pursue NPO with IVF for now in event of smoldering pancreatitis, then consider Bentyl tomorrow or the next day if symptoms not improving with pancreatitis treatment. (2) Diabetes: Plan: Chronic. A1c reviewed: elevated at 9%. 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 (3) GERD with esophagitis: Plan: Continue Protonix at BID dosing to see if this helps with upper abdominal symptoms. (4) Hypertension: Plan: Chronic. Well controlled typically, elevated this admission in the setting of pain. Continue Metoprolol 37.5mg po BID, losartan, and follow up with PCP. Admission and Anticipated Discharge Date Admission Date: October 30, 2022 Subjective Continued pain overnight, still with diarrhea immediately after eating. No other stated complaints. Physical Exam Constitutional: WD/WN, vitals as above Respiratory: normal respiratory effort, lungs clear to auscultation Cardiovascular: RRR, no murmur, no edema Gastrointestinal (Abdomen): normal BS, abdomen soft, moderately tender in upper quadrants, voluntary guarding, no distension Skin: no rashes, warm and dry Psychiatric: alert and oriented, anxious affect Results & Data Results & Data Vital Signs (Past 12 Hours) Vital Signs Temp Pulse Resp BP Pulse Ox O2 Del Method 11/01/22 08:05 36.6 C 57 L 18 174/97 H 94 Room Air PG Care Time/CCT Total # of Minutes Spent Total Time Spent with Patient: Total time spent is greater than 50% in coordination of care (as documented) at patient's floor/unit and/or counseling patient: Coding Level of Care Code 33834 SUB INP/OBS CARE 235MIN Diagnoses Abdominal pain R10.9 Diabetes E11.9 GERD with esophagitis K21.00 Hypertension I10
[2022-11-01 08:53] LABS: Basophils # (auto) 0.03 K/uL (0-0.2); Basophils % (auto) 0.7 %; Eosinophils # (auto) 0.27 K/uL (0-0.50); Eosinophils % (auto) 6.5 %; Hematocrit (blood only) 34.7 % (37.0-47.0); Hemoglobin 12.5 g/dl (12.0-16.0); Immature Granulocytes # (auto) 0.01 K/uL (0.01-0.20); Immature Granulocytes % (auto) 0.2 %; Lymphocytes # (auto) 1.81 K/uL (1.2-3.4); Lymphocytes % (auto) 43.8 %; Mean Corpuscular Hemoglobin 31.7 pg (25.0-34.0); Mean Corpuscular Volume 88.1 fL (80.0-100.0); Mean Platelet Volume 9.8 fL (9.4-12.4); Monocytes # (auto) 0.29 K/uL (0.11-0.59); Neutrophils # (auto) 1.72 K/uL (1.40-6.50); Neutrophils % (auto) 41.8 %; Platelet Count 196 K/uL (130-400); RDW Coefficient of Variation 11.6 % (11.5-14.5); RDW Standard Deviation 37.3 fL (36.4-46.3); Red Blood Count 3.94 M/uL (4.20-5.40); White Blood Count 4.13 K/ul (4.8-10.8)
[2022-11-01] MEDS: INSULIN ASPART PER UNIT CHARGE SC SCH ×4 (08:56→21:19)
[2022-11-01] MEDS: oxyCODONE/ACETAMINOPHEN 5mg/325mg TAB PO PRN (08:58)
[2022-11-01] MEDS: LANTUS PER UNIT CHARGE SQ SCH ×2 (08:58→21:58)
[2022-11-01 09:26] LABS: Albumin Globulin Ratio 1.5 (0.9-2); Albumin Level 3.5 gm/dl (3.4-5.0); Bilirubin,Total 0.6 mg/dl (0.2-1.0); Calcium 8.7 mg/dl (8.6-10.3); Creatinine Clr Calc Pharmacy 88.7 ml/min; Est GFR (African American) 107.6 ml/min; Est GFR (Non-African American) 92.9 ml/min; Globulin 2.3 gm/dl (2.5-4.0); Total Protein 5.8 gm/dl (6.0-8.3)
[2022-11-01] MEDS ORDERED: POTASSIUM CHLORIDE CRTAB 20 MEQ TABCR PO STA (10:01)
[2022-11-01] MEDS: POTASSIUM CHLORIDE / WTR 10 MEQ/100 ML PLCT IV SCH ×2 (10:34→12:52)
--- NOTE | 2022-11-01 11:22 | Gastrointestinal Consultation ---
Date of Consultation November 01, 2022 Assessment & Plan (1) Abdominal pain: (2) Loose stools: Plan -KUB -C diff testing -Stool PCR -If no findings, plan to treat with Dicyclomine 10 mg q 6 hr prn and consider outpatient endoscopic evaluation. Please see HPI for further details but patient denies being ever diagnosed with IBD. Supervising Physician Co-Signing Physician Notes I saw the patient and agree with the findings as documented by LYNN Tavarez KUB unremarkable. History of Present Illness Reason for Consultation: Abdominal pain Attending Physician: Taty Kuo DO History of Present Illness Patient is a 62 yo female who presented to [facility] with ongoing abdominal pain. She recently was hospitalized at [facility] for acute pancreatitis in mid September 2022. At that time, she had a CT on 10/06/22 and 10/09/22 that indicated acute pancreatitis without complication. An abdominal US was obtained on 10/10/22 that indicated splenomegaly, normal CBD, s/p cholecystectomy state. From the brief hospital records I have access to it appears that there wasn't a clear cause of patient's pancreatitis. She denies alcohol use. I do not have a copy of the lipid panel. Reportedly her Atorvastatin was stopped due to concerns of a med causing her pancreatitis. She notes that since that hospitalization she has had ongoing abdominal pain (generalized). She notes loose stools several times daily. She denies rectal bleeding. She notes her last colonoscopy was many years ago with an outside provider and we do not have access to these records. She denies abnormalities. Upon presentation to [facility], she had a repeat CT scan of the abdomen (no contrast due to allergy). This showed a possible thickening of the colon felt to be due to underdistention vs less likely low grade colitis. She was noted to have bladder wall thickening. MR angio of the abdomen was negative of as well. Lipase is normal x 2. Of note, she clarifies that she was never diagnosed with Crohn's Disease or IBD. She notes she was diagnosed with IBS on several occasions but insists she has never been truly diagnosed with IBD. Allergies Allergy/AdvReac Type Severity Reaction Status Date / Time bupropion [From Wellbutrin] Allergy Mild Hallucinati Verified 10/30/22 15:47 ng dicyclomine [From Bentyl] Allergy Mild Vomiting Verified 10/30/22 15:47 divalproex sodium Allergy Mild Vomiting Verified 10/30/22 15:47 [From Depakote] ketorolac [From Toradol] Allergy Mild can not Verified 10/30/22 15:47 void pregabalin [From Lyrica] Allergy Mild Hallucinati Verified 10/30/22 15:47 ng strawberry Allergy Mild Hives Verified 10/30/22 15:47 tramadol Allergy Mild can not Verified 10/30/22 15:47 void ziprasidone [From Geodon] Allergy Mild Vomiting Verified 10/30/22 15:47 Iodinated Contrast Media Allergy STOP Verified 10/30/22 15:47 BREATHING metronidazole Allergy VOMITS Verified 10/30/22 15:47 nitrofurantoin Allergy VOMITS Verified 04/22/11 19:23 Home Medications Medication Instructions Recorded Confirmed Type gabapentin 800 mg tablet 800 mg PO QID 10/30/22 10/30/22 History insulin glargine 100 unit/mL (3 0 unit subcut HS Per sliding scale 10/30/22 10/30/22 History mL) subcutaneous pen (Lantus hs Solostar U-100 Insulin) insulin lispro 100 unit/mL 0 unit subcut TIDM PRN Sliding 10/30/22 10/30/22 History subcutaneous pen (Humalog KwikPen scale with bsg (U-100) Insulin) losartan 25 mg tablet 25 mg PO DAILY 10/30/22 10/30/22 History methocarbamol 500 mg tablet 1,000 mg PO HS PRN Spasms 10/30/22 10/30/22 History metoprolol succinate 25 mg 37.5 mg PO DAILY 10/30/22 10/30/22 History tablet,extended release 24 hr ondansetron 4 mg disintegrating 4 mg translingual Q8 PRN Nausea 10/30/22 10/30/22 History tablet oxycodone-acetaminophen 7.5 mg-325 1 tab PO Q8 PRN Pain 10/30/22 10/30/22 History mg tablet pantoprazole 40 mg tablet,delayed 40 mg PO DAILY 10/30/22 10/30/22 History release sertraline 100 mg tablet 100 mg PO DAILY 10/30/22 10/30/22 History trazodone 100 mg tablet 100 mg PO HS 10/30/22 10/30/22 History Patient History Medical History (Updated 11/01/22 @ 11:19 by Denice Balbuena PA-C) CAD (coronary artery disease) Diabetes GERD with esophagitis Hyperlipidemia Hypertension IBS (irritable bowel syndrome) Surgical History H/O cardiac catheterization H/O hernia repair H/O tubal ligation H/O: hysterectomy Hx of cholecystectomy S/P coronary artery stent placement Family History Mother Hypertension Respiratory arrest Coronary heart disease Father Cancer Sister Diabetes Multiple sclerosis Social History Smoking Status: Former smoker packs per day: 1; Smoking End Date: 27 years; Hx Alcohol Use: No Hx Substance Use: No Preferred Language: [place]al[place] Communication Ability: Effective Orthotic Aide Required: No Beliefs That Will Affect Care: None Current Living Situation: Significant Other Other Information That Helps Us Care for You: No Feels Safe at Home: Yes Safety Concerns: Feels Safe At This Time Assistive Devices: None Review of Systems Constitutional: no fever and no chills Respiratory: no cough and no dyspnea Cardiovascular: no chest pain Gastrointestinal: + abdominal pain and + diarrhea/loose stools Physical Exam Constitutional: well developed Respiratory: normal respiratory effort Cardiovascular: Rate/Rhythm: regular rate Gastrointestinal (Abdomen): normal bowel sounds, soft, nontender, no hepatosplenomegaly Musculoskeletal: Head/Neck/Chest: normocephalic Psychiatric: Orientation: alert and oriented x 3 Results & Data Vital Signs (Past 12 Hours) Vital Signs Temp Pulse Resp BP Pulse Ox O2 Del Method 11/01/22 08:05 36.6 C 57 L 18 174/97 H 94 Room Air PG Care Time/CCT Total # of Minutes Spent Total Time Spent with Patient: Total time spent is greater than 50% in coordination of care (as documented) at patient's floor/unit and/or counseling patient: Coding Level of Care Code 12610 IN/OBS CONSULT LVL 4,60M Diagnoses Abdominal pain R10.9 Loose stools R19.5
--- NOTE | 2022-11-01 12:36 | XRay Report ---
KUB CLINICAL HISTORY: Diarrhea. Generalized abdominal pain. Nausea. FINDINGS: 2 AP, portable, supine abdominal radiographs are correlated with abdominal CT dated 3. There is a nonobstructed abdominal bowel gas pattern. Cholecystectomy clips are noted in the right upper quadrant. No evidence of intraperitoneal free air is seen on these supine images. There are no abnormal abdominal calcifications. Phleboliths are seen in the pelvis. The skeletal structures are o steopenic and appear intact. Mild lumbosacral spondylosis is observed. IMPRESSION: No acute abnormality is identified. Electronically signed by: Charly Peterson M.D. 11/01/2022 12:34 PM
[2022-11-01] MEDS: DICYCLOMINE HCL 10 MG CAP PO SCH ×2 (14:30→21:09)
[2022-11-01] MEDS: LACTATED RINGER'S 1,000 ML IV SCH (17:17)
[2022-11-01] MEDS: traZODone HCL 100 MG TAB PO SCH (21:10)
[2022-11-02] MEDS: LACTATED RINGER'S 1,000 ML IV SCH ×3 (00:15→12:52)
[2022-11-02] MEDS: ACETAMINOPHEN 1,000 MG/100 ML VIAL IV SCH ×2 (00:16→08:12)
[2022-11-02] MEDS: MoRPHine SULFATE 4 MG/ML 1 ML CARP\\VIAL IV PRN ×5 (00:16→12:52)
[2022-11-02] MEDS: DICYCLOMINE HCL 10 MG CAP PO SCH ×4 (03:29→20:31)
[2022-11-02] MEDS: ONDANSETRON INJ 2 MG/ML 2 ML VIAL IV PRN (03:55)
[2022-11-02] MEDS: LANTUS PER UNIT CHARGE SQ SCH ×2 (08:05→22:03)
[2022-11-02] MEDS: INSULIN ASPART PER UNIT CHARGE SC SCH ×4 (08:05→22:03)
[2022-11-02] MEDS: GABAPENTIN 800 MG TAB PO SCH ×4 (08:13→20:27)
[2022-11-02] MEDS: PANTOprazole 40 MG TAB PO SCH ×2 (08:13→20:28)
[2022-11-02] MEDS: LOSARTAN POTASSIUM 25 MG TAB PO SCH (08:13)
[2022-11-02] MEDS: SERTRALINE HCL 100 MG TABLET PO SCH (08:13)
[2022-11-02] MEDS: METOPROLOL SUCC 25MG EXT REL TAB PO SCH (08:14)
--- NOTE | 2022-11-02 10:03 | Hospitalist Progress Note ---
Date of Service November 02, 2022 Assessment & Plan (1) Abdominal pain: Plan: 62 yo female with recent hospital admission for acute pancreatitis with ongoing abdominal pain, diarrhea, and nausea. Differential includes resolving pancreatitis, intestinal ischemia/angina, abdominal migraine, Crohn's flare, other cause. Etiology uncertain - labs are largely unremarkable, as is CT scan. No laboratory or radiographic evidence to suggest acute pancreatitis (though CTAP was without contrast due to allergy), perhaps a smoldering chronic process? Symptoms are similar to episode of pancreatitis during recent hospitalization at outside facility. MR angio with contrast ordered to eval for intestinal ischemia, negative. ESR and CRP not elevated, not suspicious of bacterial infection or Crohn's flare given this. Has had some diarrhea, stool Biofire and C diff negative this admission. Continue BID PPI, scheduled Tylenol, and prn Zofran/Dilaudid. Trial clears and low fiber like toast, perhaps pain will improve and she has an ulcer. Patient herself is suspicious that her pain is at least partially associated with stress after trying several things, see anxiety below. (2) Anxiety: Plan: History of anxiety and fibromyalgia, chronic narcotic use, difficult pain control prior to her abdominal issues over the last 2 months. Notes increase in pain in a similar time frame to increased stressors at home, no home safety concerns, no food insecurity, just has a lot of responsibilities and little help. Question if patient's symptoms of abdominal pain given largely normal findings on imaging/labwork are somatic manifestations of stress, have asked Behavioral Health to evaluate patient. Would recommend counseling and follow up with PCP, perhaps adjustment/augmentation of her sertraline medication. Has been on Cymbalta and Lyrica and had hallucinations therefore would stay away from these modalities. (3) IBS (irritable bowel syndrome): Plan: History of IBS-D, has trialed Bentyl in the past without much benefit. Will give Imodium dose now given multiple episodes of diarrhea yesterday and today. (4) Diabetes: Plan: Chronic. A1c reviewed: elevated at 9%. 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 (5) GERD with esophagitis: Plan: Continue Protonix at BID dosing to see if this helps with upper abdominal symptoms. (6) Hypertension: Plan: Chronic. Well controlled typically, elevated this admission in the setting of pain. Continue Metoprolol 37.5mg po BID, losartan, and follow up with PCP. Admission and Anticipated Discharge Date Admission Date: November 01, 2022 Subjective Today patient endorses much increased stress in the recent few months, financial concerns, does the vast majority of the housework, bills, etc without much help from partner. Feels safe at home. Reports pain is similar today, wants to try some clears and maybe some toast to see if it helps the pain. Review of Systems Review of Systems: All systems reviewed & are unremarkable except as noted in Subjective Physical Exam Constitutional: WD/WN, vitals as above Respiratory: normal respiratory effort, lungs clear to auscultation Cardiovascular: RRR, no murmur, no edema Gastrointestinal (Abdomen): normal BS, abdomen soft, moderately tender in upper quadrants, voluntary guarding, no distension Skin: no rashes, warm and dry Psychiatric: alert and oriented, anxious affect Results & Data Results & Data Vital Signs (Past 12 Hours) Vital Signs Temp Pulse Resp BP Pulse Ox O2 Del Method 11/02/22 07:43 36.6 C 61 17 177/99 H 95 Room Air PG Care Time/CCT Total # of Minutes Spent Total Time Spent with Patient: Total time spent is greater than 50% in coordination of care (as documented) at patient's floor/unit and/or counseling patient: Coding Level of Care Code 58317 SUB INP/OBS CARE 3/50MIN Diagnoses Abdominal pain R10.9 Anxiety F41.9 IBS (irritable bowel syndrome) K58.9 Diabetes E11.9 GERD with esophagitis K21.00 Hypertension I10
[2022-11-02] MEDS: oxyCODONE/ACETAMINOPHEN 5mg/325mg TAB PO PRN (12:07)
[2022-11-02] MEDS ORDERED: CAPSAICIN CR 0.075% 60 GM TUBE EXT PRN (14:30)
[2022-11-02] MEDS ORDERED: LOPERAMIDE HCL 2 MG CAP PO STA (14:31)
[2022-11-02] MEDS ORDERED: oxyCODONE/ACETAMINOPHEN 5mg/325mg TAB PO PRN (14:33)
[2022-11-02] MEDS: ACETAMINOPHEN 500 MG TAB PO SCH (15:08)
[2022-11-02] MEDS: HYDROmorphone INJ 1 MG/ML SYRINGE IV PRN ×2 (15:08→20:25)
[2022-11-02 17:55] LABS: BUN Creatinine Ratio 8.3 (10-20); Calcium 8.8 mg/dl (8.6-10.3); Creatinine Clr Calc Pharmacy 86.3 ml/min; Est GFR (Non-African American) 89.8 ml/min; Potassium 3.7 mmol/L (3.5-5.1)
[2022-11-02] MEDS: traZODone HCL 100 MG TAB PO SCH (20:28)
[2022-11-03] MEDS: HYDROmorphone INJ 1 MG/ML SYRINGE IV PRN ×5 (00:14→20:19)
[2022-11-03] MEDS: ACETAMINOPHEN 500 MG TAB PO SCH ×4 (00:16→17:54)
[2022-11-03] MEDS: DICYCLOMINE HCL 10 MG CAP PO SCH ×4 (02:36→20:21)
--- NOTE | 2022-11-03 08:11 | Psychiatric Consultation ---
Date of Consultation November 03, 2022 Impression / Recommendations Impression Diagnostically consistent with likely generalized anxiety disorder with likely somatic component as well as adjustment disorder with anxiety in context of recent worsening of physical symptoms and reported recent pancreatitis. Combination of medication and therapy shows best evidence for both acute and long-term benefits of reducing anxiety and mood symptoms. Diagnosis of bipolar depression seems unlikely given no reported history of blayne and has been on unopposed SSRI monotherapy without emergence of blayne for several years so not felt to require mood stabilizer at this time; however would monitor for any elevations in mood or development of hallucinations at higher doses of SSRI as this did occur with prior SNRI trial and if this did occur then would reduce dose and instead consider mood augmentation with an antipsychotic like low dose abilify. Acute risk of self-harm is low given denial of SI. Sodium is normal and no evidence of prolonged QTc. (1) JOYCE (generalized anxiety disorder): (2) Adjustment disorder with mixed anxiety and depressed mood: Plan -currently on sertraline 100mg daily, could consider increasing to 150mg daily to further target anxiety, possible that she may have some GI symptoms with dose increase but these tend to resolve within 2 weeks in majority of people if they occur -can continue with trazodone 100mg HS, however if sertraline adjustment does not offer enough benefit after 2- 4weeks then would consider stopping trazodone and instead starting mirtazapine 7.5mg HS (can then titrate to 15mg HS if tolerated) for benefits for insomnia/depression/anxiety and though off-label people often find benefits for nausea/stomach pain relief with mirtazapine -psychiatric liason will provide resources for local mental health services and attempt to establish outpatient therapy if she is interested in this -Discussed with Dr. Kuo Psych History Identifying Data Mercy is a 62 yo woman with history of possible bipolar depression (denies hx of blayne and has been on monotherapy with SSRI for multiple years without emergence of blayne so suspect MDD), fibromyalgia, chronic pain, diabetes, GERD, HTN admitted medically for abdominal pain. Psychiatry consulted for recommendations for mood/anxiety. Chief Complaint "It's just been normal every day stress and all this physical stuff". History of Present Illness Mercy reports worsened anxiety and mood due to increased back pain causing limitations and now with increased stomach issues which has prevented her from keeping up with her normal daily activities. She adamantly denies SI. She's interested in some medication adjustments given recent worsening of stomach pain and wondering about contribution from anxiety. Had a back surgery delayed due to elevated HbA1c and hoping this can occur sometime soon. She notes lately she just hasn't felt like herself. Denies any other specific recent stressors or triggers. Additional recent history per psych liason note from 11/02/2022: "Met with patient for consult service d/t increased anxiety with physical ailments. Patient resting in bed. Pleasant and talkative, tearful when speaking of grief. She reports a history of Bipolar depression. She has a history of 1 psychiatric hospitalization, ~10 years ago at [facility] for depression. She denies history or current SI, denies SIB or HI. Patient reports having medication trials in the past, some have caused hallucinations. She denies a history of blayne. Patient reports mental stability for a while and was taken off some medications and had decreased her current prescription of Zoloft. Currently patient's Zoloft is managed by PCP. "a couple" years ago she was following with Dr. Nj at [facility] for psychiatry. She is interested in medication recommendations d/t increased anxiety from recent medical issues and recent loss of ex- as well as siblings. She is also interested in outpatient therapy services (agreeable to telehealth). Patient denies ETOH or substance abuse. She does report chronic pain (neuropathy, fibromyalgia, and back pain) managed by daily narcotic use. She has seen pain management through [facility] but had a bad experience." Prior trials of duloxetine and Lyrica with side effects of hallucinations, hx depakote with emesis, hx Wellbutrin with emesis, hx ziprasidone with emesis. Allergies Allergy/AdvReac Type Severity Reaction Status Date / Time bupropion [From Wellbutrin] Allergy Mild Hallucinati Verified 10/30/22 15:47 ng dicyclomine [From Bentyl] Allergy Mild Vomiting Verified 10/30/22 15:47 divalproex sodium Allergy Mild Vomiting Verified 10/30/22 15:47 [From Depakote] ketorolac [From Toradol] Allergy Mild can not Verified 10/30/22 15:47 void pregabalin [From Lyrica] Allergy Mild Hallucinati Verified 10/30/22 15:47 ng strawberry Allergy Mild Hives Verified 10/30/22 15:47 tramadol Allergy Mild can not Verified 10/30/22 15:47 void ziprasidone [From Geodon] Allergy Mild Vomiting Verified 10/30/22 15:47 Iodinated Contrast Media Allergy STOP Verified 10/30/22 15:47 BREATHING metronidazole Allergy VOMITS Verified 10/30/22 15:47 nitrofurantoin Allergy VOMITS Verified 04/22/11 19:23 Home Medications Medication Instructions Recorded Confirmed Type gabapentin 800 mg tablet 800 mg PO QID 10/30/22 10/30/22 History insulin glargine 100 unit/mL (3 0 unit subcut HS Per sliding scale 10/30/22 10/30/22 History mL) subcutaneous pen (Lantus hs Solostar U-100 Insulin) insulin lispro 100 unit/mL 0 unit subcut TIDM PRN Sliding 10/30/22 10/30/22 History subcutaneous pen (Humalog KwikPen scale with bsg (U-100) Insulin) losartan 25 mg tablet 25 mg PO DAILY 10/30/22 10/30/22 History methocarbamol 500 mg tablet 1,000 mg PO HS PRN Spasms 10/30/22 10/30/22 History metoprolol succinate 25 mg 37.5 mg PO DAILY 10/30/22 10/30/22 History tablet,extended release 24 hr ondansetron 4 mg disintegrating 4 mg translingual Q8 PRN Nausea 10/30/22 10/30/22 History tablet oxycodone-acetaminophen 7.5 mg-325 1 tab PO Q8 PRN Pain 10/30/22 10/30/22 History mg tablet pantoprazole 40 mg tablet,delayed 40 mg PO DAILY 10/30/22 10/30/22 History release sertraline 100 mg tablet 100 mg PO DAILY 10/30/22 10/30/22 History trazodone 100 mg tablet 100 mg PO HS 10/30/22 10/30/22 History Patient History Medical History CAD (coronary artery disease) Diabetes GERD with esophagitis Hyperlipidemia Hypertension IBS (irritable bowel syndrome) Surgical History H/O cardiac catheterization H/O hernia repair H/O tubal ligation H/O: hysterectomy Hx of cholecystectomy S/P coronary artery stent placement Family History Mother Hypertension Respiratory arrest Coronary heart disease Father Cancer Sister Diabetes Multiple sclerosis Social History Smoking Status: Former smoker packs per day: 1; Smoking End Date: 27 years; Hx Alcohol Use: No Hx Substance Use: No Preferred Language: Citizen Of [place] Communication Ability: Effective 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: No Beliefs That Will Affect Care: None Current Living Situation: Significant Other Other Information That Helps Us Care for You: No Feels Safe at Home: Yes Safety Concerns: Feels Safe At This Time Assistive Devices: None Physical Exam Psychiatric: Orientation: alert and oriented x 3 Apperance: appropriately dressed and appropriately groomed Eye Contact: good eye contact Motor Behavior: no abnormal motor movements Speech: normal rate/rhythm/volume of speech Affect: + constricted affect Mood: + depressed mood and + anxious mood Thought Process: goal directed thought process Thought Content: reality based without delusions Suicidal Thoughts: denies suicidal thoughts Homicidal Thoughts: denies homicidal thoughts Hallucinations: no auditory hallucinations and no visual hallucinations Cognition: attention grossly intact and language grossly intact Estimated Intelligence: consistent with education level Insight: + fair insight Judgment: + fair judgement Vital Signs (Past 24 Hours): Last Vital Signs Temp 36.6 C 11/03/22 07:22 Pulse 69 11/03/22 07:22 Resp 16 11/03/22 07:22 BP 146/88 H 11/03/22 07:22 Pulse Ox 96 11/03/22 07:22 O2 Del Method Room Air 11/03/22 07:22 Review of Systems All systems reviewed & are unremarkable except as noted in HPI & below Results & Data (PSY) Medications Administered Acetaminophen (Acetaminophen 500 Mg Tab) 1,000 mg PO Q8H MOOSE Stop: 12/02/22 15:59 Last Admin: 11/03/22 00:16 Dose: Not Given Documented By: Admin: 11/02/22 15:08 Dose: 1,000 mg Documented By: CMAmalia Dicyclomine HCl (Dicyclomine Hcl 10 Mg Cap) 10 mg PO Q6H MOOSE Stop: 12/01/22 13:29 Last Admin: 11/03/22 02:36 Dose: Not Given Documented By: Admin: 11/02/22 20:31 Dose: 10 mg Documented By: Admin: 11/02/22 12:52 Dose: 10 mg Documented By: Admin: 11/02/22 08:14 Dose: 10 mg Documented By: Admin: 11/02/22 03:29 Dose: Not Given Documented By: Admin: 11/01/22 21:09 Dose: 10 mg Documented By: Admin: 11/01/22 14:30 Dose: 10 mg Documented By: STEVE Gabapentin (Gabapentin 800 Mg Tab) 800 mg PO QID MOOSE Stop: 11/29/22 22:42 Last Admin: 11/02/22 20:27 Dose: 800 mg Documented By: Admin: 11/02/22 17:01 Dose: 800 mg Documented By: Admin: 11/02/22 12:07 Dose: 800 mg Documented By: Admin: 11/02/22 08:13 Dose: 800 mg Documented By: Admin: 11/01/22 21:09 Dose: 800 mg Documented By: Admin: 11/01/22 16:44 Dose: 800 mg Documented By: Admin: 11/01/22 12:51 Dose: 800 mg Documented By: Admin: 11/01/22 08:12 Dose: 800 mg Documented By: Admin: 10/31/22 19:59 Dose: 800 mg Documented By: Admin: 10/31/22 17:42 Dose: 800 mg Documented By: Admin: 10/31/22 12:34 Dose: 800 mg Documented By: Admin: 10/31/22 08:06 Dose: 800 mg Documented By: Admin: 10/30/22 23:45 Dose: 800 mg Documented By: ANNABELLA Hydromorphone HCl (Hydromorphone Inj 1 Mg/Ml Syringe) 1 mg IV Q4H PRN PRN Reason: severe pain Stop: 11/16/22 14:30 Last Admin: 11/03/22 04:56 Dose: 1 mg Documented By: Admin: 11/03/22 00:14 Dose: 1 mg Documented By: Admin: 11/02/22 20:25 Dose: 1 mg Documented By: Admin: 11/02/22 15:08 Dose: 1 mg Documented By: STEVE Insulin Aspart (Insulin Aspart Per Unit Charge) 0 units SC ACHS MOOSE Stop: 11/29/22 22:42 Last Admin: 11/02/22 22:03 Dose: 3 units Documented By: SUKUMAR Co-signed By: CHRISTIAN Admin: 11/02/22 17:16 Dose: Not Given Documented By: STEVE Co-signed By: PRESTON Admin: 11/02/22 11:50 Dose: Not Given Documented By: STEVE Co-signed By: KATHERINEM Admin: 11/02/22 08:05 Dose: Not Given Documented By: STEVE Co-signed By: JEANIE Admin: 11/01/22 21:19 Dose: Not Given Documented By: SUKUMAR Co-signed By: DEUCE Admin: 11/01/22 16:28 Dose: Not Given Documented By: STEVE Co-signed By: JEANIE Admin: 11/01/22 12:58 Dose: 2 units Documented By: STEVE Co-signed By: BLOSSOM Admin: 11/01/22 08:56 Dose: Not Given Documented By: STEVE Co-signed By: BLOSSOM Admin: 10/31/22 21:52 Dose: 1 units Documented By: ANNABELLA Co-signed By: GABBY Admin: 10/31/22 17:29 Dose: Not Given Documented By: Admin: 10/31/22 12:32 Dose: 2 units Documented By: WISAM Co-signed By: ANGELIQUES Admin: 10/31/22 09:04 Dose: 2 units Documented By: WISAM Co-signed By: AKASH Admin: 10/31/22 00:05 Dose: Not Given Documented By: ANNABELLA Co-signed By: GABBY Insulin Glargine (Lantus Per Unit Charge) 5 units SQ BID MOOSE Stop: 11/29/22 22:42 Last Admin: 11/02/22 22:03 Dose: 5 units Documented By: SUKUMAR Co-signed By: CHRISTIAN Admin: 11/02/22 08:05 Dose: Not Given Documented By: Admin: 11/01/22 21:58 Dose: Not Given Documented By: Admin: 11/01/22 08:58 Dose: 5 units Documented By: STEVE Co-signed By: BLOSSOM Admin: 10/31/22 21:52 Dose: 5 units Documented By: ANNABELLA Co-signed By: GABBY Admin: 10/31/22 09:04 Dose: 5 units Documented By: WISAM Co-signed By: AKASH Admin: 10/31/22 00:05 Dose: 5 units Documented By: ANNABELLA Co-signed By: GABBY Losartan Potassium (Losartan Potassium 25 Mg Tab) 25 mg PO DAILY [facility] Stop: 11/30/22 08:59 Last Admin: 11/02/22 08:13 Dose: 25 mg Documented By: Admin: 11/01/22 08:14 Dose: 25 mg Documented By: Admin: 10/31/22 08:07 Dose: 25 mg Documented By: WISAM Methocarbamol (Methocarbamol 500 Mg Tablet) 1,000 mg PO HS PRN PRN Reason: Spasms Stop: 11/29/22 22:42 Last Admin: 10/31/22 19:58 Dose: 1,000 mg Documented By: ANNABELLA Metoprolol Succinate (Metoprolol Succ 25mg Ext Rel Tab) 37.5 mg PO DAILY [facility] Stop: 11/30/22 08:59 Last Admin: 11/02/22 08:14 Dose: 37.5 mg Documented By: Admin: 11/01/22 08:14 Dose: Not Given Documented By: Admin: 10/31/22 08:08 Dose: 37.5 mg Documented By: WISAM Ondansetron HCl (Ondansetron Inj 2 Mg/Ml 2 Ml Vial) 4 mg IV Q6H PRN PRN Reason: Nausea And Vomiting Stop: 11/29/22 22:42 Last Admin: 11/02/22 03:55 Dose: 4 mg Documented By: Admin: 11/01/22 19:30 Dose: 4 mg Documented By: Admin: 11/01/22 08:07 Dose: 4 mg Documented By: Admin: 10/31/22 14:47 Dose: 4 mg Documented By: Admin: 10/31/22 07:54 Dose: 4 mg Documented By: Admin: 10/30/22 23:43 Dose: 4 mg Documented By: ANNABELLA Pantoprazole Sodium (Pantoprazole 40 Mg Tab) 40 mg PO BID [facility] Stop: 11/30/22 20:59 Last Admin: 11/02/22 20:28 Dose: 40 mg Documented By: Admin: 11/02/22 08:13 Dose: 40 mg Documented By: Admin: 11/01/22 21:10 Dose: 40 mg Documented By: Admin: 11/01/22 08:14 Dose: 40 mg Documented By: Admin: 10/31/22 20:00 Dose: 40 mg Documented By: ANNABELLA Sertraline HCl (Sertraline Hcl 100 Mg Tablet) 100 mg PO DAILY [facility]OOSE Stop: 11/30/22 08:59 Last Admin: 11/02/22 08:13 Dose: 100 mg Documented By: Admin: 11/01/22 08:12 Dose: 100 mg Documented By: Admin: 10/31/22 08:08 Dose: 100 mg Documented By: WISAM Trazodone HCl (Trazodone Hcl 100 Mg Tab) 100 mg PO HS [facility] Stop: 11/29/22 22:42 Last Admin: 11/02/22 20:28 Dose: 100 mg Documented By: Admin: 11/01/22 21:10 Dose: 100 mg Documented By: Admin: 10/31/22 19:57 Dose: 100 mg Documented By: Admin: 10/30/22 23:45 Dose: 100 mg Documented By: ANNABELLA Coding Level of Care Code 35789 IN/OBS CONSULT LVL 4,60M Diagnoses JOYCE (generalized anxiety disorder) F41.1 Adjustment disorder with mixed anxiety and depressed mood F43.23 Time Spent (min) 60
[2022-11-03] MEDS: PANTOprazole 40 MG TAB PO SCH ×2 (08:48→20:22)
[2022-11-03] MEDS: LOSARTAN POTASSIUM 25 MG TAB PO SCH (08:48)
[2022-11-03] MEDS: METOPROLOL SUCC 25MG EXT REL TAB PO SCH (08:49)
[2022-11-03] MEDS: SERTRALINE HCL 100 MG TABLET PO SCH (08:49)
[2022-11-03] MEDS: GABAPENTIN 800 MG TAB PO SCH ×4 (08:49→20:22)
[2022-11-03] MEDS: INSULIN ASPART PER UNIT CHARGE SC SCH ×4 (08:58→20:53)
[2022-11-03] MEDS: LANTUS PER UNIT CHARGE SQ SCH ×2 (08:59→20:57)
--- NOTE | 2022-11-03 09:26 | Hospitalist Progress Note ---
Date of Service November 03, 2022 Assessment & Plan (1) Abdominal pain: Plan: 62 yo female with recent hospital admission for acute pancreatitis with ongoing abdominal pain, diarrhea, and nausea. Differential includes resolving pancreatitis, intestinal ischemia/angina, abdominal migraine, Crohn's flare, other cause. Etiology uncertain - labs are largely unremarkable, as is CT scan. No laboratory or radiographic evidence to suggest acute pancreatitis (though CTAP was without contrast due to allergy), perhaps a smoldering chronic process? Symptoms are similar to episode of pancreatitis during recent hospitalization at outside facility. MR angio with contrast ordered to eval for intestinal ischemia, negative. ESR and CRP not elevated, not suspicious of bacterial infection or Crohn's flare given this. Has had some diarrhea, stool Biofire and C diff negative this admission. Imodium BID prn. Continue BID PPI, scheduled Tylenol, and prn Zofran/Dilaudid. Trial low fiber diet. Patient herself is suspicious that her pain is at least partially associated with stress after trying several things, see anxiety below. Pain Management consulted and appreciate recommendations, will transition methocarbamol to baclofen 10mg TID in hopes that this will have more activity for abdominal spasm. Will need Pain Management follow up outpatient. (2) Anxiety: Plan: History of anxiety and fibromyalgia, chronic narcotic use, difficult pain control prior to her abdominal issues over the last 2 months. Notes increase in pain in a similar time frame to increased stressors at home, no home safety concerns, no food insecurity, just has a lot of responsibilities and little help. Question if patient's symptoms of abdominal pain given largely normal findings on imaging/labwork are somatic manifestations of stress, Behavioral Health and Psych involved this admission. Resources for counseling offered and recommend follow up with PCP, also increased sertraline to 150mg daily. Has been on Cymbalta and Lyrica and had hallucinations therefore would stay away from these modalities. (3) IBS (irritable bowel syndrome): Plan: History of IBS-D, has trialed Bentyl in the past without much benefit. Will give Imodium prn diarrhea. (4) Diabetes: Plan: Chronic. A1c reviewed: elevated at 9%. 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 nurse educator involved. (5) GERD with esophagitis: Plan: Continue Protonix at BID dosing for possible gastritis as cause. Follow up outpatient for EGD/colonoscopy if indicated. Appreciate GI consult this admission. (6) Hypertension: Plan: Chronic. Well controlled typically, elevated this admission in the setting of pain. Continue Metoprolol 37.5mg po BID, losartan, and follow up with PCP. Admission and Anticipated Discharge Date Admission Date: November 01, 2022 Subjective No acute events overnight. Tolerated toast, clears without issue. Eating did not make the pain better, but in order to make the pain worse. Denies other symptoms such as fevers, chest pain, shortness of breath. Physical Exam Constitutional: WD/WN, vitals as above Skin: no rashes, warm and dry Psychiatric: alert and oriented, anxious affect Results & Data Results & Data Vital Signs (Past 12 Hours) Vital Signs Temp Pulse Resp BP Pulse Ox O2 Del Method 11/03/22 07:22 36.6 C 69 16 146/88 H 96 Room Air PG Care Time/CCT Total # of Minutes Spent Total Time Spent with Patient: Total time spent is greater than 50% in coordination of care (as documented) at patient's floor/unit and/or counseling patient: Coding Level of Care Code 42541 SUB INP/OBS CARE 3/50MIN Diagnoses Abdominal pain R10.9 Anxiety F41.9 IBS (irritable bowel syndrome) K58.9 Diabetes E11.9 GERD with esophagitis K21.00 Hypertension I10
[2022-11-03] MEDS ORDERED: SERTRALINE HCL 50 MG TABLET PO ONE (09:41)
[2022-11-03] MEDS ORDERED: oxyCODONE/APAP 7.5/325MG TAB PO PRN (13:02)
--- NOTE | 2022-11-03 13:02 | Pain Management Consultation ---
Date of Consultation November 03, 2022 Assessment & Plan (1) Loose stools: (2) GERD with esophagitis: (3) Abdominal pain: (4) IBS (irritable bowel syndrome): (5) Neuropathy: (6) Nausea: (7) Depression: (8) Bipolar affective disorder, current episode manic with psychotic symptoms: (9) Anxiety: Plan 1. Switch Robaxin to Baclofen 10mg TID as there may be a myofascial component from guarding. 2. I did place the Percocet back to chronic 7.5/325mg TID dosing. 3. Encouraged patient to limit IV Dilaudid dosing in preparation for discharge and she is understanding. History of Present Illness Reason for Consultation: Abdominal pain Attending Physician: Taty Kuo, History of Present Illness This is a 62-year-old female that has been seen at the [facility] for abdominal pain. Patient states that she was diagnosed with pancreatitis 1 month ago at [place] after a few days of admission she was discharged home. Patient states that she has not improved since last month. She describes a sharp stabbing pain along the upper umbilicus that radiates bilaterally to the mid axillary line. She states that the pain in the upper abdomen is constant. No aggravating or alleviating symptoms. She does report constant nausea, intermittent vomiting, and persistent watery diarrhea. Has not seen outpatient GI in many years - some history of IBS. She has been involved with a [facility] for chronic pain complaints including Fibromyalgia, neuropathy, and chronic back pain complaints. She states that the one provider was wright with her that if she has back surgery which she plans on when her hbg A1C improves that the provider will no longer take care of her pain medications. Her PCP has been prescribing the Percocet 7.5/325mg three times daily with little relief. Was able to eat all of her lunch. Allergies Allergy/AdvReac Type Severity Reaction Status Date / Time bupropion [From Wellbutrin] Allergy Mild Hallucinati Verified 10/30/22 15:47 ng dicyclomine [From Bentyl] Allergy Mild Vomiting Verified 10/30/22 15:47 divalproex sodium Allergy Mild Vomiting Verified 10/30/22 15:47 [From Depakote] ketorolac [From Toradol] Allergy Mild can not Verified 10/30/22 15:47 void pregabalin [From Lyrica] Allergy Mild Hallucinati Verified 10/30/22 15:47 ng strawberry Allergy Mild Hives Verified 10/30/22 15:47 tramadol Allergy Mild can not Verified 10/30/22 15:47 void ziprasidone [From Geodon] Allergy Mild Vomiting Verified 10/30/22 15:47 Iodinated Contrast Media Allergy STOP Verified 10/30/22 15:47 BREATHING metronidazole Allergy VOMITS Verified 10/30/22 15:47 nitrofurantoin Allergy VOMITS Verified 04/22/11 19:23 Home Medications Medication Instructions Recorded Confirmed Type gabapentin 800 mg tablet 800 mg PO QID 10/30/22 10/30/22 History insulin glargine 100 unit/mL (3 0 unit subcut HS Per sliding scale 10/30/22 10/30/22 History mL) subcutaneous pen (Lantus hs Solostar U-100 Insulin) insulin lispro 100 unit/mL 0 unit subcut TIDM PRN Sliding 10/30/22 10/30/22 History subcutaneous pen (Humalog KwikPen scale with bsg (U-100) Insulin) losartan 25 mg tablet 25 mg PO DAILY 10/30/22 10/30/22 History methocarbamol 500 mg tablet 1,000 mg PO HS PRN Spasms 10/30/22 10/30/22 History metoprolol succinate 25 mg 37.5 mg PO DAILY 10/30/22 10/30/22 History tablet,extended release 24 hr ondansetron 4 mg disintegrating 4 mg translingual Q8 PRN Nausea 10/30/22 10/30/22 History tablet oxycodone-acetaminophen 7.5 mg-325 1 tab PO Q8 PRN Pain 10/30/22 10/30/22 History mg tablet pantoprazole 40 mg tablet,delayed 40 mg PO DAILY 10/30/22 10/30/22 History release sertraline 100 mg tablet 100 mg PO DAILY 10/30/22 10/30/22 History trazodone 100 mg tablet 100 mg PO HS 10/30/22 10/30/22 History Pain History Previous Imaging and Results Imaging: ABDOMEN AND PELVIS CT WITHOUT CONTRAST CT DOSE: 1258.48 mGy.cm HISTORY: Generalized abdominal pain. pancreatitis TECHNIQUE: Multiaxial CT images of the abdomen and pelvis were performed without contrast. A dose lowering technique was utilized adhering to the principles of KEISHA. COMPARISON STUDY: Abdomen and pelvis CT 04/14/2011. FINDINGS: Calcified granuloma seen within the left lower lobe. No pneumoperitoneum. No pneumatosis. No acute fractures identified. Prior mesh repair of a midline ventral hernia. Prior cholecystectomy. The unenhanced liver, adrenal glands, pancreas, and kidneys are within normal limits. No renal or ureteral stones. No hydronephrosis. There are few punctate calcified granulomas within the spleen. No peripancreatic inflammatory change to suggest acute pancreatitis. Normal caliber abdominal aorta with moderate calcified plaque. No retroperitoneal or pelvic lymphadenopathy. No pelvic free fluid. Prior hysterectomy. Mild bladder wall thickening. Suboptimal evaluation for bowel pathology due to the lack of intravenous and oral contrast. Questionable thickening of the colon is likely due to underdistention. No pericolonic inflammatory change to suggest an acute colitis. No evidence for a bowel obstruction. Normal appendix. IMPRESSION: 1. No CT evidence for acute pancreatitis at this time. 2. No definite bowel wall thickening or obstruction. Questionable thickening of the colon is likely due to underdistention. A low-grade colitis is considered less likely. 3. Normal appendix. 4. Mild bladder wall thickening. Recommend correlation with urinalysis. 5. Prior cholecystectomy and hysterectomy. ACT 112: Negative or not required by law. Electronically signed by: Robin Byrne M.D. 10/30/2022 6:17 PM Patient History Medical History CAD (coronary artery disease) Diabetes GERD with esophagitis Hyperlipidemia Hypertension IBS (irritable bowel syndrome) Surgical History H/O cardiac catheterization H/O hernia repair H/O tubal ligation H/O: hysterectomy Hx of cholecystectomy S/P coronary artery stent placement Family History Mother Hypertension Respiratory arrest Coronary heart disease Father Cancer Sister Diabetes Multiple sclerosis Social History Smoking Status: Former smoker packs per day: 1; Smoking End Date: 27 years; Hx Alcohol Use: No Hx Substance Use: No Preferred Language: Citizen Of [place] Communication Ability: Effective Brass Reclaimer Required: No Beliefs That Will Affect Care: None Current Living Situation: Significant Other Other Information That Helps Us Care for You: No Feels Safe at Home: Yes Safety Concerns: Feels Safe At This Time Assistive Devices: None Physical Exam Physical Exam: GENERAL: This is a 62 year old female in no acute distress. HEAD/FACE: Normocephalic and atraumatic. EYES: No drainage or conjunctival injection. ENT: Nose without bleeding or discharge. Oral mucosa moist. CHEST/AXILLA: Chest movement symmetrical. No deformities noted. ABDOMEN/GI: No distension. Hyperalgesia along the entire upper abdomen. No rib tenderness. Moderate guarding. No rebound tenderness. No trigger points noted. BACK: Moves without difficulty SKIN: [place], warm and dry. No rash noted. MS/EXTREMITY: No swelling, no deformities. Moving extremities appropriately. NEURO: Alert and appears oriented. Speech is fluent. Cranial Nerves are grossly intact. PSYCH: Alert, pleasant, affect is calm
[2022-11-03] MEDS: BACLOFEN 10 MG TAB PO SCH ×2 (14:08→20:21)
[2022-11-03] MEDS ORDERED: LOPERAMIDE HCL 2 MG CAP PO STA (14:13)
[2022-11-03] MEDS ORDERED: LOPERAMIDE HCL 2 MG CAP PO PRN (14:13)
[2022-11-03] MEDS: traZODone HCL 100 MG TAB PO SCH (20:22)
[2022-11-04] MEDS: HYDROmorphone INJ 1 MG/ML SYRINGE IV PRN ×3 (02:29→16:54)
[2022-11-04] MEDS: DICYCLOMINE HCL 10 MG CAP PO SCH ×4 (02:29→19:46)
[2022-11-04] MEDS: ACETAMINOPHEN 500 MG TAB PO SCH ×2 (05:00→17:05)
--- NOTE | 2022-11-04 07:51 | Hospitalist Progress Note ---
Date of Service November 04, 2022 Assessment & Plan (1) Abdominal pain: Plan: 62 yo female with recent hospital admission for acute pancreatitis with ongoing abdominal pain, diarrhea, and nausea. Differential includes resolving pancreatitis, intestinal ischemia/angina, abdominal migraine, Crohn's flare, other cause. Etiology uncertain - labs are largely unremarkable, as is CT scan. No laboratory or radiographic evidence to suggest acute pancreatitis (though CTAP was without contrast due to allergy), perhaps a smoldering chronic process? Symptoms are similar to episode of pancreatitis during recent hospitalization at outside facility. MR angio with contrast ordered to eval for intestinal ischemia, negative. ESR and CRP not elevated, not suspicious of bacterial infection or Crohn's flare given this. Has had some diarrhea, stool Biofire and C diff negative this admission. Imodium BID prn. Continue BID PPI, scheduled Tylenol, and prn Zofran/Dilaudid (increase interval to transition to home oral regimen). Continue low fiber diet. Patient herself is suspicious that her pain is at least partially associated with stress after trying several things, see anxiety below. Pain Management consulted and appreciate recommendations, continue baclofen 10mg TID as this seems to be helping more for abdominal spasms. Recommend Pain Management follow up outpatient. (2) Anxiety: Plan: History of anxiety and fibromyalgia, chronic narcotic use, difficult pain control prior to her abdominal issues over the last 2 months. Notes increase in pain in a similar time frame to increased stressors at home, no home safety concerns, no food insecurity, just has a lot of responsibilities and little help. Question if patient's symptoms of abdominal pain given largely normal findings on imaging/labwork are somatic manifestations of stress, Behavioral Health and Psych involved this admission. Resources for counseling offered and recommend follow up with PCP, also increased sertraline to 150mg daily, to con tinue on discharge. Has been on Cymbalta and Lyrica and had hallucinations therefore would stay away from these modalities. (3) IBS (irritable bowel syndrome): Plan: History of IBS-D, has trialed Bentyl in the past without much benefit. Continue Imodium prn diarrhea. (4) Diabetes: Plan: Chronic. A1c reviewed: elevated at 9%. 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 (5) GERD with esophagitis: Plan: Continue Protonix at BID dosing for possible gastritis as cause. Follow up outpatient for EGD/colonoscopy. Appreciate GI consult this admission. (6) Hypertension: Plan: Chronic. Well controlled typically, elevated this admission in the setting of pain. Continue Metoprolol 37.5mg po BID, losartan, and follow up with PCP. Admission and Anticipated Discharge Date Admission Date: November 01, 2022 Subjective Some improvement in her abdominal cramping, the squeezing sensation does not get as severe on the Baclofen. Tolerated low fiber diet relatively well. Physical Exam Constitutional: WD/WN, vitals as above Gastrointestinal (Abdomen): abdomen soft, mild tenderness diffuse abdomen Skin: no rashes, warm and dry Psychiatric: alert and oriented, anxious affect Results & Data Results & Data Vital Signs (Past 12 Hours) Vital Signs Temp Pulse Resp BP Pulse Ox O2 Del Method 11/04/22 07:27 36.6 C 57 L 15 176/106 H 94 Room Air 11/03/22 20:15 36.8 C 65 16 165/86 H 96 Room Air PG Care Time/CCT Total # of Minutes Spent Total Time Spent with Patient: Total time spent is greater than 50% in coordination of care (as documented) at patient's floor/unit and/or counseling patient: Coding Level of Care Code 49179 SUB INP/OBS CARE 2/35MIN Diagnoses Abdominal pain R10.9 Anxiety F41.9 IBS (irritable bowel syndrome) K58.9 Diabetes E11.9 GERD with esophagitis K21.00 Hypertension I10
[2022-11-04] MEDS: BACLOFEN 10 MG TAB PO SCH ×3 (08:12→19:44)
[2022-11-04] MEDS: METOPROLOL SUCC 25MG EXT REL TAB PO SCH (08:13)
[2022-11-04] MEDS: GABAPENTIN 800 MG TAB PO SCH ×4 (08:13→19:44)
[2022-11-04] MEDS: LOPERAMIDE HCL 2 MG CAP PO SCH ×2 (08:13→19:45)
[2022-11-04] MEDS: LOSARTAN POTASSIUM 25 MG TAB PO SCH (08:13)
[2022-11-04] MEDS: PANTOprazole 40 MG TAB PO SCH ×2 (08:14→19:45)
[2022-11-04] MEDS: SERTRALINE HCL 50 MG TABLET PO SCH (08:14)
[2022-11-04] MEDS: INSULIN ASPART PER UNIT CHARGE SC SCH ×4 (08:23→20:41)
[2022-11-04] MEDS: LANTUS PER UNIT CHARGE SQ SCH ×2 (08:23→20:41)
[2022-11-04] MEDS: oxyCODONE/APAP 7.5/325MG TAB PO PRN ×2 (12:18→20:45)
[2022-11-04] MEDS: traZODone HCL 100 MG TAB PO SCH (19:46)
[2022-11-05] MEDS: DICYCLOMINE HCL 10 MG CAP PO SCH ×4 (01:57→19:34)
[2022-11-05] MEDS: ACETAMINOPHEN 500 MG TAB PO SCH ×2 (05:00→17:05)
[2022-11-05] MEDS: oxyCODONE/APAP 7.5/325MG TAB PO PRN ×3 (07:52→20:58)
[2022-11-05] MEDS: METOPROLOL SUCC 25MG EXT REL TAB PO SCH (07:54)
[2022-11-05] MEDS: LOPERAMIDE HCL 2 MG CAP PO SCH ×2 (07:55→19:33)
[2022-11-05] MEDS: BACLOFEN 10 MG TAB PO SCH ×3 (07:55→19:33)
[2022-11-05] MEDS: GABAPENTIN 800 MG TAB PO SCH ×4 (07:55→19:32)
[2022-11-05] MEDS: LOSARTAN POTASSIUM 25 MG TAB PO SCH (07:55)
--- NOTE | 2022-11-05 07:55 | Discharge Summary ---
Discharge Summary Date of Service November 05, 2022 Admission HPI Per Admitting Provider Mercy Jordan is a 62yo female with history of HTN, HLP, DM, GERD, Crohns, CAD and Bipolar presenting with severe abdominal pain and decreased PO intake for several days. Patient reports that she was recently admitted to [facility] for 6 days due to acute pancreatitis. She reports that her lab values were largely normal but her CT can showed significant inflammation of the pancreas. Patient with no clear source for the pancreatitis - no EtOH, s/p cholecystectomy, no h/o prior. Thought possibly secondary to medications - she was taken off her Atorvastatin, Fenofibrate and Lisinopril and started on Losartan. She was discharged home. Since returning home, patient reports that she has been unable to eat due to severe nausea and abdominal pain. She reports that the only thing she's eaten in the last several days is a piece of toast with peanut butter. She has been drinking Sprite to keep her blood sugar up. Her pain is constant but is worse after attempting to eat. It is largely located periumbilically and upper abdomen. 10/10 in severity, stabbing and aching. She has nausea but no vomiting. She has also had loose stools, non-bloody/non-mucoid. She reports having a "head cold" for the last 3 days. She reports waking up with significant diaphoresis the last two mornings - drenched in sweat. Her blood sugar was fine both days. She also reports cough, congestion as well as extreme weakness and fatigue. She denies fever. No additional complaints at this time. No sick contacts She reports she has been taking Zofran at home. In the ER she is afebrile, HD stable, NAD. ER Course: Morphine 4mg IV Morphine 6mg IV NSS Zofran Admission Exam Per Admitting Provider General: patient resting comfortably, NAD, non-toxic in appearance, AA&O x 4 Skin: warm, dry, intact, petechial rash present on left wrist HEENT: NC/AT, PERRL, EOMI, anicteric sclera, conjunctiva without injection, external ear normal to inspection and nontender, nares patent, moist mucus membranes, dentition intact, no oropharyngeal lesions, neck supple, trachea midline, no LAD, no thyromegaly, no JVD Heart: +S1/S2, regular, no m/r/g Lungs: equal air entry bilaterally, no rales/rhonchi/wheezes Abd: +BS, soft, non-distended, tender with palpation of periumbilical region, upper abdomen and bilateral flanks with voluntary guarding Ext: warm, 2+ pulses in UE/LE bilaterally, no clubbing/cyanosis or edema Neuro: nonfocal, patient AA&O x 4, speech intact, no facial droop, moving all extremities on command with equal strength 5/5 Principal Dx & Hospital Course #1 = Principal Diagnosis (1) Abdominal pain: 62 yo female with recent hospital admission for acute pancreatitis with ongoing abdominal pain, diarrhea, and nausea. Differential includes resolving pancreatitis, intestinal ischemia/angina, abdominal migraine, Crohn's flare, other cause. Etiology uncertain - labs are largely unremarkable, as is CT scan. No laboratory or radiographic evidence to suggest acute pancreatitis (though CTAP was without contrast due to allergy), perhaps a smoldering chronic process? Symptoms are similar to episode of pancreatitis during recent hospitalization at outside facility. MR angio with contrast ordered to eval for intestinal ischemia, negative. ESR and CRP not elevated, not suspicious of bacterial infection or Crohn's flare given this. Has had some diarrhea, stool Biofire and C diff negative this admission. Imodium BID prn. Continue BID PPI, scheduled Tylenol, and prn Zofran/Dilaudid (increase interval to transition to home oral regimen). Continue low fiber diet. Patient herself is suspicious that her pain is at least partially associated with stress after trying several things, see anxiety below. Pain Management consulted and appreciate recommendations, continue baclofen 10mg TID as this seems to be helping more for abdominal spasms. Recommend Pain Management follow up outpatient. (2) Anxiety: History of anxiety and fibromyalgia, chronic narcotic use, difficult pain control prior to her abdominal issues over the last 2 months. Notes increase in pain in a similar time frame to increased stressors at home, no home safety concerns, no food insecurity, just has a lot of responsibilities and little help. Question if patient's symptoms of abdominal pain given largely normal findings on imaging/labwork are somatic manifestations of stress, Behavioral Health and Psych involved this admission. Resources for counseling offered and recommend follow up with PCP, also increased sertraline to 150mg daily, to continue on discharge. Has been on Cymbalta and Lyrica and had hallucinations therefore would stay away from these modalities. (3) IBS (irritable bowel syndrome): History of IBS-D, has trialed Bentyl in the past without much benefit. Continue Imodium prn diarrhea. (4) Diabetes: Chronic. A1c reviewed: elevated at 9%. 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 (5) GERD with esophagitis: Continue Protonix at BID dosing for possible gastritis as cause. Follow up outpatient for EGD/colonoscopy. Appreciate GI consult this admission. (6) Hypertension: Chronic. Well controlled typically, elevated this admission in the setting of pain. Continue Metoprolol 37.5mg po BID, losartan, and follow up with PCP. Updated Medication List Medication Instructions Recorded Confirmed Type gabapentin 800 mg tablet 800 mg PO QID 10/30/22 10/30/22 History insulin glargine 100 unit/mL (3 0 unit subcut HS Per sliding scale 10/30/22 10/30/22 History mL) subcutaneous pen (Lantus hs Solostar U-100 Insulin) insulin lispro 100 unit/mL 0 unit subcut TIDM PRN Sliding 10/30/22 10/30/22 History subcutaneous pen (Humalog KwikPen scale with bsg (U-100) Insulin) losartan 25 mg tablet 25 mg PO DAILY 10/30/22 10/30/22 History methocarbamol 500 mg tablet 1,000 mg PO HS PRN Spasms 10/30/22 10/30/22 History metoprolol succinate 25 mg 37.5 mg PO DAILY 10/30/22 10/30/22 History tablet,extended release 24 hr ondansetron 4 mg disintegrating 4 mg translingual Q8 PRN Nausea 10/30/22 10/30/22 History tablet oxycodone-acetaminophen 7.5 mg-325 1 tab PO Q8 PRN Pain 10/30/22 10/30/22 History mg tablet pantoprazole 40 mg tablet,delayed 40 mg PO DAILY 10/30/22 10/30/22 History release sertraline 100 mg tablet 100 mg PO DAILY 10/30/22 10/30/22 History trazodone 100 mg tablet 100 mg PO HS 10/30/22 10/30/22 History Hospital Stay Data Consultations 10/30/22 18:37 ED Decision to Admit Stat 10/31/22 15:53 Consult Gastroenterology Routine 11/02/22 14:31 Consult Behavioral Health Liaison Routine 11/02/22 17:27 Consult Psychiatry Routine 11/03/22 09:40 Consult Pain Management Routine Diagnostic Imagining Performed 10/30/22 14:35 CT abd pelvis wo con Stat 10/31/22 18:08 MR angio abdomen wo/w con Routine Coding Diagnoses Abdominal pain R10.9 Anxiety F41.9 IBS (irritable bowel syndrome) K58.9 Diabetes E11.9 GERD with esophagitis K21.00 Hypertension I10
[2022-11-05] MEDS: PANTOprazole 40 MG TAB PO SCH ×2 (07:56→19:33)
[2022-11-05] MEDS: SERTRALINE HCL 50 MG TABLET PO SCH (07:56)
[2022-11-05] MEDS: LANTUS PER UNIT CHARGE SQ SCH ×2 (08:00→20:54)
[2022-11-05] MEDS: INSULIN ASPART PER UNIT CHARGE SC SCH ×4 (08:00→20:54)
[2022-11-05] MEDS: HYDROmorphone INJ 1 MG/ML SYRINGE IV PRN (09:21)
[2022-11-05] MEDS ORDERED: SIMETHICONE 80 MG CHEW PO PRN (14:39)
--- NOTE | 2022-11-05 14:41 | Hospitalist Progress Note ---
Date of Service November 05, 2022 Assessment & Plan (1) Abdominal pain: Plan: 62 yo female with recent hospital admission for acute pancreatitis with ongoing abdominal pain, diarrhea, and nausea. Differential includes resolving pancreatitis, intestinal ischemia/angina, abdominal migraine, Crohn's flare, other cause. Etiology uncertain - labs are largely unremarkable, as is CT scan. No laboratory or radiographic evidence to suggest acute pancreatitis (though CTAP was without contrast due to allergy), perhaps a smoldering chronic process? Symptoms are similar to episode of pancreatitis during recent hospitalization at outside facility. MR angio with contrast ordered to eval for intestinal ischemia, negative. ESR and CRP not elevated, not suspicious of bacterial infection or Crohn's flare given this. Has had some diarrhea, stool Biofire and C diff negative this admission. Imodium BID prn. Continue BID PPI, scheduled Tylenol, and prn Zofran/Dilaudid (decrease to q12h as we prepare for discharge home). Continue low fiber diet. Simethicone chews ordered for bloating. Patient herself is suspicious that her pain is at least partially associated with stress after trying several things, see anxiety below. Pain Management consulted and appreciate recommendations, continue baclofen 10mg TID as this seems to be helping more for abdominal spasms. Recommend Pain Management follow up outpatient. (2) Anxiety: Plan: History of anxiety and fibromyalgia, chronic narcotic use, difficult pain control prior to her abdominal issues over the last 2 months. Notes increase in pain in a similar time frame to increased stressors at home, no home safety concerns, no food insecurity, just has a lot of responsibilities and little help. Question if patient's symptoms of abdominal pain given largely normal findings on imaging/labwork are somatic manifestations of stress, Behavioral Health and Psych involved this admission. Resources for counseling offered and recommend follow up with PCP, also increased sertraline to 150mg daily, to continue on discharge. Has been on Cymbalta and Lyrica and had hallucinations therefore would stay away from these modalities. (3) IBS (irritable bowel syndrome): Plan: History of IBS-D, has trialed Bentyl in the past without much benefit. Continue Imodium prn diarrhea. (4) Diabetes: Plan: Chronic. A1c reviewed: elevated at 9%. 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 (5) GERD with esophagitis: Plan: Continue Protonix at BID dosing for possible gastritis as cause. Follow up outpatient for EGD/colonoscopy. Appreciate GI consult this admission. (6) Hypertension: Plan: Chronic. Well controlled typically, elevated this admission in the setting of pain. Continue Metoprolol 37.5mg po BID, losartan, and follow up with PCP. Admission and Anticipated Discharge Date Admission Date: November 01, 2022 Subjective Increased bloating today, no nausea, on going intermittent diarrhea (chronic). Physical Exam Constitutional: WD/WN, vitals as above Gastrointestinal (Abdomen): abdomen soft, mild tenderness diffuse abdomen Skin: no rashes, warm and dry Psychiatric: alert and oriented, anxious affect Results & Data Results & Data Vital Signs (Past 12 Hours) Vital Signs Temp Pulse Resp BP Pulse Ox O2 Del Method 11/05/22 07:38 36.7 C 66 18 160/86 H 94 Room Air PG Care Time/CCT Total # of Minutes Spent Total Time Spent with Patient: Total time spent is greater than 50% in coordination of care (as documented) at patient's floor/unit and/or counseling patient: Coding Level of Care Code 66677 SUB INP/OBS CARE 2/35MIN Diagnoses Abdominal pain R10.9 Anxiety F41.9 IBS (irritable bowel syndrome) K58.9 Diabetes E11.9 GERD with esophagitis K21.00 Hypertension I10
[2022-11-05] MEDS ORDERED: HYDROmorphone INJ 1 MG/ML SYRINGE IV STA (17:24)
[2022-11-05] MEDS: traZODone HCL 100 MG TAB PO SCH (19:33)
[2022-11-05] MEDS ORDERED: HYDROmorphone INJ 1 MG/ML SYRINGE IV PRN (21:00)
--- NOTE | 2022-11-05 21:47 | XRay Report ---
XR KUB/Abdomen 1 view CLINICAL HISTORY: eval for ileus/SBO/fecal retention TECHNIQUE: 1 view of the abdomen was obtained. Comparison: None available at the time of this dictation. FINDINGS: Lung bases are unremarkable. The osseous structures are grossly unremarkable. The bowel gas pattern i s nonobstructive. Small stool burden is seen. IMPRESSION: Nonobstructive bowel gas pattern. ACT 112: Negative or not required by law. Electronically signed by: Paco Hester M.D. 11/05/2022 9:46 PM
[2022-11-06] MEDS: DICYCLOMINE HCL 10 MG CAP PO SCH ×2 (01:27→07:31)
[2022-11-06] MEDS: ACETAMINOPHEN 500 MG TAB PO SCH (05:00)
[2022-11-06] MEDS: SERTRALINE HCL 50 MG TABLET PO SCH (07:31)
[2022-11-06] MEDS: BACLOFEN 10 MG TAB PO SCH (07:31)
[2022-11-06] MEDS: LOPERAMIDE HCL 2 MG CAP PO SCH (07:32)
[2022-11-06] MEDS: METOPROLOL SUCC 25MG EXT REL TAB PO SCH (07:32)
[2022-11-06] MEDS: PANTOprazole 40 MG TAB PO SCH (07:34)
[2022-11-06] MEDS: GABAPENTIN 800 MG TAB PO SCH (07:34)
[2022-11-06] MEDS: LOSARTAN POTASSIUM 25 MG TAB PO SCH (07:34)
[2022-11-06] MEDS: LANTUS PER UNIT CHARGE SQ SCH (08:41)
[2022-11-06] MEDS: INSULIN ASPART PER UNIT CHARGE SC SCH (08:41)
--- NOTE | 2022-11-06 09:00 | Discharge Summary ---
Discharge Summary Date of Service November 06, 2022 Admission HPI Per Admitting Provider Mercy Jordan is a 62yo female with history of HTN, HLP, DM, GERD, Crohns, CAD and Bipolar presenting with severe abdominal pain and decreased PO intake for several days. Patient reports that she was recently admitted to [facility] for 6 days due to acute pancreatitis. She reports that her lab values were largely normal but her CT can showed significant inflammation of the pancreas. Patient with no clear source for the pancreatitis - no EtOH, s/p cholecystectomy, no h/o prior. Thought possibly secondary to medications - she was taken off her Atorvastatin, Fenofibrate and Lisinopril and started on Losartan. She was discharged home. Since returning home, patient reports that she has been unable to eat due to severe nausea and abdominal pain. She reports that the only thing she's eaten in the last several days is a piece of toast with peanut butter. She has been drinking Sprite to keep her blood sugar up. Her pain is constant but is worse after attempting to eat. It is largely located periumbilically and upper abdomen. 10/10 in severity, stabbing and aching. She has nausea but no vomiting. She has also had loose stools, non-bloody/non-mucoid. She reports having a "head cold" for the last 3 days. She reports waking up with significant diaphoresis the last two mornings - drenched in sweat. Her blood sugar was fine both days. She also reports cough, congestion as well as extreme weakness and fatigue. She denies fever. No additional complaints at this time. No sick contacts She reports she has been taking Zofran at home. In the ER she is afebrile, HD stable, NAD. ER Course: Morphine 4mg IV Morphine 6mg IV NSS Zofran Admission Exam Per Admitting Provider General: patient resting comfortably, NAD, non-toxic in appearance, AA&O x 4 Skin: warm, dry, intact, petechial rash present on left wrist HEENT: NC/AT, PERRL, EOMI, anicteric sclera, conjunctiva without injection, external ear normal to inspection and nontender, nares patent, moist mucus membranes, dentition intact, no oropharyngeal lesions, neck supple, trachea midline, no LAD, no thyromegaly, no JVD Heart: +S1/S2, regular, no m/r/g Lungs: equal air entry bilaterally, no rales/rhonchi/wheezes Abd: +BS, soft, non-distended, tender with palpation of periumbilical region, upper abdomen and bilateral flanks with voluntary guarding Ext: warm, 2+ pulses in UE/LE bilaterally, no clubbing/cyanosis or edema Neuro: nonfocal, patient AA&O x 4, speech intact, no facial droop, moving all extremities on command with equal strength 5/5 Principal Dx & Hospital Course #1 = Principal Diagnosis (1) Abdominal pain: (2) GERD with esophagitis: (3) CAD (coronary artery disease): (4) Diabetes: (5) JOYCE (generalized anxiety disorder): (6) Adjustment disorder with mixed anxiety and depressed mood: Plan Abdominal pain: 62 yo female with recent hospital admission for acute pancreatitis with ongoing abdominal pain, diarrhea, and nausea. Differential includes resolving pancre atitis, intestinal ischemia/angina, abdominal migraine, Crohn's flare, other cause. Etiology uncertain - labs are largely unremarkable, as is CT scan. No laboratory or radiographic evidence to suggest acute pancreatitis (though CTAP was without contrast due to allergy), perhaps a smoldering chronic process? MR angio with contrast ordered to eval for intestinal ischemia, negative. ESR and CRP not elevated, not suspicious of bacterial infection. Has had some diarrhea, stool Biofire and C diff negative this admission. Imodium BID prn. Continue BID PPI, scheduled Tylenol, and prn Zofran/home oxycodone. Continue low fiber diet. Simethicone chews ordered for bloating. Patient herself is suspicious that her pain is at least partially associated with stress after trying several things, see anxiety below. Pain Management consulted and appreciate recommendations, continue baclofen 10mg TID as this seems to be helping more for abdominal spasms. Recommend Pain Management follow up outpatient. Anxiety: History of anxiety and fibromyalgia, chronic narcotic use, difficult pain control prior to her abdominal issues over the last 2 months. Notes increase in pain in a similar time frame to increased stressors at home, no home safety concerns, no food insecurity, just has a lot of responsibilities and little help. Question if patient's symptoms of abdominal pain given largely normal findings on imaging/labwork are somatic manifestations of stress, Behavioral Health and Psych involved this admission. Resources for counseling offered and recommend follow up with PCP, also increased sertraline to 150mg daily, to continue on discharge. Has been on Cymbalta and Lyrica and had hallucinations therefore would stay away from these modalities. IBS (irritable bowel syndrome): History of IBS-D, has trialed Bentyl in the past without much benefit, willing to try again. Continue Imodium prn diarrhea. Gastro follow up scheduled for later this month. Diabetes: Chronic. A1c reviewed: elevated at 9%. 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 Follow up with PCP regarding ongoing glycemic management. GERD with esophagitis: Continue Protonix at BID dosing for possible gastritis as cause. Follow up outpatient for EGD/colonoscopy. Appreciate GI consult this admission. Hypertension: Chronic. Well controlled typically, elevated this admission in the setting of pain. Continue Metoprolol 37.5mg po BID, losartan, and follow up with PCP. Intends to follow up with Dr. Tracy with [facility]. Discharge Exam Constitutional WD/WN, vitals as above Gastrointestinal (Abdomen) abdomen soft, minimally tender, normal BS Psychiatric A+Ox3, euthymic affect Updated Medication List Medication Instructions Recorded Confirmed Type gabapentin 800 mg tablet 800 mg PO QID 10/30/22 10/30/22 History insulin glargine 100 unit/mL (3 0 unit subcut HS Per sliding scale 10/30/22 10/30/22 History mL) subcutaneous pen (Lantus hs Solostar U-100 Insulin) insulin lispro 100 unit/mL 0 unit subcut TIDM PRN Sliding 10/30/22 10/30/22 History subcutaneous pen (Humalog KwikPen scale with bsg (U-100) Insulin) losartan 25 mg tablet 25 mg PO DAILY 10/30/22 10/30/22 History metoprolol succinate 25 mg 37.5 mg PO DAILY 10/30/22 10/30/22 History tablet,extended release 24 hr ondansetron 4 mg disintegrating 4 mg translingual Q8 PRN Nausea 10/30/22 10/30/22 History tablet oxycodone-acetaminophen 7.5 mg-325 1 tab PO Q8 PRN Pain 10/30/22 10/30/22 History mg tablet pantoprazole 40 mg tablet,delayed 40 mg PO DAILY 10/30/22 10/30/22 History release trazodone 100 mg tablet 100 mg PO HS 10/30/22 10/30/22 History baclofen 10 mg tablet 10 mg PO TID 30 days #90 tabs 11/05/22 Rx dicyclomine 10 mg capsule 10 mg PO Q6H 14 days #56 caps 11/05/22 Rx loperamide 2 mg capsule 2 mg PO BID #0 caps 11/05/22 Rx sertraline 50 mg tablet 150 mg PO DAILY 30 days #90 tabs 11/05/22 Rx Hospital Stay Data Consultations 10/30/22 18:37 ED Decision to Admit Stat 10/31/22 15:53 Consult Gastroenterology Routine 11/02/22 17:27 Consult Psychiatry Routine 11/03/22 09:40 Consult Pain Management Routine Diagnostic Imagining Performed 10/30/22 14:35 CT abd pelvis wo con Stat 10/31/22 18:08 MR angio abdomen wo/w con Routine Pending Results Patient Have Any Pending Studies at Discharge: No Discharge Instructions Given to Patient (Per Discharging Provider) You were admitted to the hospital for evaluation and management of your abdo ulisses pain. Fortunately, there was not evidence of acute pancreatitis, appendicitis, or liver infection. There was not evidence of artery occlusion in any of the vessels of your belly, either. There was also no evidence of bowel obstruction. Our pain management group transitioned your methocarbamol to baclofen, which we will continue on your discharge. We were able to de-escalate the IV, chronic medications, in favor of your home opiate medicines, and you are felt to be safe for discharge home. Your medications were sent to [facility] in [place]. While you were here, your sertraline dose was changed to 150 mg daily. I recommend that you follow-up with Dr. Tracy and the providers in the purple book with regard to your symptoms. We also recommend that you get set up with Pain Management and Gastroenterology through [facility]. Total Time Total Time Spent Total Time Spent (In Minutes): 35 min Coding Level of Care Code 79588 INP/OBS DISCH >30 MIN Diagnoses Abdominal pain R10.9 GERD with esophagitis K21.00 CAD (coronary artery disease) I25.10 Diabetes E11.9 JOYCE (generalized anxiety disorder) F41.1 Adjustment disorder with mixed anxiety and depressed mood F43.23
[2022-11-06] MEDS: oxyCODONE/APAP 7.5/325MG TAB PO PRN (10:19)
== END 2022-11-06 12:22 | disposition home or self-care (01) | DRG 392 ==
LOC: ED 12:16 → 3W 12:16 → SUATTDRO 19:59 → 3W 22:25

== ENCOUNTER 2023-03-23 15:06 | Inpatient (IN) ==
[2023-03-23 18:00] LABS: Basophils # (auto) 0.05 K/uL (0.00-0.20); Basophils % (auto) 0.7 %; Eosinophils # (auto) 0.23 K/uL (0.00-0.50); Eosinophils % (auto) 3.1 %; Hematocrit (blood only) 40.9 % (37.0-47.0); Hemoglobin 14.8 g/dl (12.0-16.0); Immature Granulocytes # (auto) 0.03 K/uL (0.01-0.20); Immature Granulocytes % (auto) 0.4 %; Lymphocytes # (auto) 2.23 K/uL (1.20-3.40); Lymphocytes % (auto) 30.1 %; Mean Corpuscular Hgb Conc 36.2 g/dL (32.0-36.0); Mean Corpuscular Volume 88.5 fL (80.0-100.0); Mean Platelet Volume 10.1 fL (9.4-12.4); Monocytes # (auto) 0.51 K/uL (0.11-0.59); Monocytes % (auto) 6.9 %; Neutrophils # (auto) 4.35 K/uL (1.40-6.50); Neutrophils % (auto) 58.8 %; Platelet Count 190 K/uL (130-400); RDW Coefficient of Variation 12.5 % (11.5-14.5); RDW Standard Deviation 40.8 fL (36.4-46.3); Red Blood Count 4.62 M/uL (4.20-5.40)
[2023-03-23 18:27] LABS: Alanine Aminotransferase 12 U/L (7-52); Albumin Globulin Ratio 1.4 (0.9-2); Albumin Level 4.4 gm/dl (3.4-5.0); Alkaline Phosphatase 85 U/L (34-104); Anion Gap 8 (3-11); Aspartate Aminotransferase 15 U/L (13-39); Bilirubin,Total 0.7 mg/dl (0.2-1.0); Blood Urea Nitrogen 15 mg/dl (6-23); Calcium 9.8 mg/dl (8.6-10.3); Carbon Dioxide 29 mmol/L (21-32); Chloride 94 mmol/L (98-107); Est GFR (Non-African American) 85.4 ml/min; Globulin 3.1 gm/dl (2.5-4.0); Glucose 345 mg/dl (70-99(Fasting)); Lipase 31 U/L (11-82); Potassium 4.1 mmol/L (3.5-5.1); Sodium 131 mmol/L (136-145); Total Protein 7.5 gm/dl (6.0-8.3)
[2023-03-23] MEDS ORDERED: ACETAMINOPHEN 1,000 MG/100 ML VIAL IV STA (23:50)
[2023-03-23] MEDS ORDERED: MoRPHine SULFATE 4 MG/ML 1 ML CARP\\VIAL IV STA (23:50)
--- NOTE | 2023-03-23 23:59 | Emergency Department Note ---
Impression & Plan Abdominal pain, Acute pain of left hip, Hyperglycemia ED Provider Note ED Provider Note NAME: MER[facility] NGO AGE:62 SEX: Female : 1960 ARRIVES VIA: Private vehicle INFORMANT: Patient ED PROVIDER(s): Patricia Ely DO CHIEF COMPLAINT: Left lower abdominal pain, left hip pain HPI: This is a 62-year-old female who presents emergency department due to concern for worsening pain related to a recently diagnosed left inguinal hernia. Patient states she was seen and evaluated on March 17, 2023 [facility]. She states she underwent ultrasound followed by CAT scan and was diagnosed with an inguinal hernia and was told that she would be seen in follow-up in the office after the holidays. She states over the course of the last week her pain has gotten worse. She states the pain radiates into her left hip and low back and at times into her perineum additionally and she is to the point now where the pain is unbearable and she has difficulty walking or getting up from a seated position. Patient does use pain medication chronically due to history of chronic low back pain and fibromyalgia. She states she has been taking her usual pain medication without any improvement in her new pain. She states she has had chills but has not taken her temperature, no overt fevers. She denies any change in bowel movements or change in urine. She denies any change in activity or lifting. Patient has had prior hysterectomy. PAST MEDICAL HISTORY:See Below PAST SURGICAL HISTORY:See Below FAMILY HISTORY:See Below SOCIAL HISTORY:See Below HOME MEDICATIONS:See Below ALLERGIES:See Below VITALS:See Below PHYSICAL EXAMINATION: GENERAL: alert, well appearing, well nourished, no distress, non-toxic EYE EXAM: normal conjunctiva, PERRL and EOM's grossly intact OROPHARYNX: no exudate, no erythema, lips, buccal mucosa, and tongue normal and mucous membranes are moist NECK: supple, no nuchal rigidity, no adenopathy, non-tender LUNGS: Clear to auscultation. Normal chest wall mechanics, no w/r/r HEART: no murmurs, S1 normal and S2 normal ABDOMEN: abdomen soft, mild edema noted to the left lower quadrant/left inguinal region which is markedly tender with palpation, normo-active bowel sounds, no masses, no rebound or guarding. BACK: Back is symmetrical on inspection and there is no deformity, no midline tenderness, no CVA tenderness. SKIN: no rashes, petechiae, orbruising UPPER EXTREMITIES: upper extremities are grossly normal. FROM, nml pulses b/l. LOWER EXTREMITIES: No pitting edema. FROM, nml pulses b/l. Pain with palpation over the left lateral hip and left iliac crest. NEURO EXAM: Normal sensorium, cranial nerves II-XII grossly intact, normal speech, no facial droop,nogross weakness of arms, no gross weakness of legs. Gross sensation intact. No ataxia. Vital Signs: reviewed and remarkable Differential Diagnosis: Increasing hernia related pain, incarcerated hernia, mesenteric ischemia, perforation, diverticulitis, GI bleed, constipation, ureterolithiasis, UTI, fibromyalgia pain, arthritis, as well as others were considered MEDICAL DECISION MAKING: THis is a 62 yo female who presents to the ER with concern for worsening LLQ pain. VS stable and patient afebrile. Patient with recent dx of left inguinal hernia. Labs drawn and sent, IV established, and patient placed on telemetry. She was given IV tylenol and IV morphine for pain. She was sent for repeat CT without contrast due to her allergy to contrast. CT did not reveal any acute pathology. Patient required additional IV morphine and eventual IV dilaudid due to persistent pain. Given concern for persistent pain and unknown etiology we discussed possible need for additional evaluation. Case discussed with hospitalist for additional evaluation. Patient was also given IVF and SQ insulin for hyperglycemia. No evidence of DKA. Consultation(s): [] ER Treatment Provided: See below Diagnostics Interpreted By Me: -ECG: [] -Cardiac Monitoring: An order was placed for continuous cardiac monitoring. The monitor shows a rate of 70 with normal sinus rhythm. -Laboratory studies: As stated above and show below. -Imaging studies: [] Triage Nursing Note Reviewed Prior/Outside Records Reviewed -records from ER visit to [facility] on 03/17/2023 reviewed including faxed reports from CT scan of the pelvis, CT scan of the hips, and labs Past Med/Surg History Medical History Chronic back pain History of chest pain Fibromyalgia History of pulmonary embolism roughly 15yrs ago--unknown cause--no blood thinners COVID-19 11/08/2022 @ [facility]--head cold symptoms, slight cough--no symptoms now IBS (irritable bowel syndrome) TIA (transient ischemic attack) "more than 15yrs ago"--unknown cause, no deficits--no neurologist Hypertension Hyperlipidemia GERD with esophagitis Diabetes IDDM Depression CAD (coronary artery disease) Surgical History History of fusion of cervical spine normal ROM History of repair of right rotator cuff History of bladder suspension procedure History of laparoscopy lysis of adhesions removal History of esophagogastroduodenoscopy (EGD) History of colonoscopy History of tooth extraction all teeth removed Hx of cholecystectomy H/O tubal ligation H/O: hysterectomy bhupendra bso H/O hernia repair x2 S/P coronary artery stent placement 5yrs ago @ [facility]--1 stent total H/O cardiac catheterization x1 roughly 5 yrs ago @ [facility]--1 stent placed--follows with Dr. 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 Beliefs That Will Affect Care: None Current Living Situation: Significant Other Feels Safe at Home: Yes Assistive Devices: Denture - Upper, Denture - Lower and Glasses Allergies Allergies Allergy/AdvReac Type Severity Reaction Status Date / Time Iodinated Contrast Media Allergy Severe STOP Verified 02/05/23 14:59 BREATHING bupropion [From Wellbutrin] Allergy Mild Hallucinati Verified 02/05/23 14:59 ng divalproex sodium Allergy Mild Vomiting Verified 02/05/23 14:59 [From Depakote] ketorolac [From Toradol] Allergy Mild can not Verified 02/05/23 14:59 void metronidazole Allergy Mild VOMITS Verified 02/05/23 14:59 nitrofurantoin Allergy Mild VOMITS Verified 02/05/23 14:59 pregabalin [From Lyrica] Allergy Mild Hallucinati Verified 02/05/23 14:59 ng strawberry Allergy Mild Hives Verified 02/05/23 14:59 tramadol Allergy Mild can not Verified 02/05/23 14:59 void ziprasidone [From Geodon] Allergy Mild Vomiting Verified 02/05/23 14:59 Home Meds Home Medications Medication Instructions Recorded Confirmed insulin glargine 100 unit/mL (3 10 unit subcut BID 10/30/22 03/24/23 mL) subcutaneous pen (Lantus Solostar U-100 Insulin) insulin lispro 100 unit/mL 1 sliding scale dose subcut TIDM 10/30/22 03/24/23 subcutaneous pen (Humalog KwikPen (U-100) Insulin) losartan 25 mg tablet 25 mg PO QAM 10/30/22 03/24/23 trazodone 100 mg tablet 100 mg PO HS 10/30/22 03/24/23 loperamide 2 mg capsule 2 mg PO BID PRN Diarrhea 12/04/22 03/24/23 sertraline 50 mg tablet 150 mg PO HS 12/04/22 03/24/23 Previous Rx's Medication Instructions Recorded baclofen 10 mg tablet 10 mg PO TID 90 days #270 tabs 11/14/22 pantoprazole 40 mg tablet,delayed 40 mg PO BID #60 tabs 12/12/22 release gabapentin 800 mg tablet 800 mg PO QID #120 tabs 01/25/23 metoprolol succinate 25 mg 37.5 mg (1.5 x 25 mg) PO HS #45 01/25/23 tablet,extended release 24 hr tabs ondansetron 4 mg disintegrating 4 mg translingual Q8H PRN Nausea 01/25/23 tablet #60 tabs oxycodone-acetaminophen 7.5 mg-325 1 tab PO Q8H PRN Pain 30 days #90 03/01/23 mg tablet tabs Results & Data (ED) Vital Signs Vital Signs - 24 hr 03/23/23 23:37 03/24/23 00:37 Pulse Rate [Finger] 73 65 Respiratory Rate 18 18 Blood Pressure [Right Arm] 197/136 H 173/90 H Blood Pressure Mean [Right Arm] 156 117 Blood Pressure Position [Right Arm] Sitting Semi-fowlers Pulse Oximetry 97 96 Oxygen Delivery Method Room Air Room Air Laboratory Data 03/23/23 17:10 12/30/23 16:16 Lab Results 03/23/23 03/23/23 03/24/23 Range/Units 17:10 17:40 00:52 WBC 7.40 (4.8-10.8) K/ul RBC 4.62 (4.20-5.40) M/uL Hgb 14.8 (12.0-16.0) g/dl Hct 40.9 (37.0-47.0) % MCV 88.5 (80.0-100.0) fL MCH 32.0 (25.0-34.0) pg MCHC 36.2 H (32.0-36.0) g/dL RDW Std Deviation 40.8 (36.4-46.3) fL RDW Coeff of [place] 12.5 (11.5-14.5) % Plt Count 190 (130-400) K/uL MPV 10.1 (9.4-12.4) fL Immature Gran % (Auto) 0.4 % Neut % (Auto) 58.8 % Lymph % (Auto) 30.1 % [place] % (Auto) 6.9 % Eos % (Auto) 3.1 % Baso % (Auto) 0.7 % Neut # (Auto) 4.35 (1.40-6.50) K/uL Lymph # (Auto) 2.23 (1.20-3.40) K/uL [place] # (Auto) 0.51 (0.11-0.59) K/uL Eos # (Auto) 0.23 (0.00-0.50) K/uL Baso # (Auto) 0.05 (0.00-0.20) K/uL Immature Gran # (Auto) 0.03 (0.01-0.20) K/uL Sodium 131 L (136-145) mmol/L Potassium 4.1 (3.5-5.1) mmol/L Chloride 94 L (98-107) mmol/L Carbon Dioxide 29 (21-32) mmol/L Anion Gap 8 (3-11) BUN 15 (6-23) mg/dl Creatinine 0.75 (0.6-1.2) mg/dl Est Cr Clr Drug Dosing Not Reportable Est GFR ( Amer) 99.0 ml/min Est GFR (Non-Af Amer) 85.4 ml/min BUN/Creatinine Ratio 20.0 (10-20) Glucose 345 H* (70-99(Fasting)) mg/dl POC Glucose (70-99) mg/dl Lactate 1.1 (0.4-2.0) mmol/L Calcium 9.8 (8.6-10.3) mg/dl Total Bilirubin 0.7 (0.2-1.0) mg/dl AST 15 (13-39) U/L ALT 12 (7-52) U/L Alkaline Phosphatase 85 (34-104) U/L Total Protein 7.5 (6.0-8.3) gm/dl Albumin 4.4 (3.4-5.0) gm/dl Globulin 3.1 (2.5-4.0) gm/dl Albumin/Globulin Ratio 1.4 (0.9-2) Lipase 31 (11-82) U/L Procalcitonin 0.07 (0-0.5) ng/ml 03/24/23 Range/Units 02:04 WBC (4.8-10.8) K/ul RBC (4.20-5.40) M/uL Hgb (12.0-16.0) g/dl Hct (37.0-47.0) % MCV (80.0-100.0) fL MCH (25.0-34.0) pg MCHC (32.0-36.0) g/dL RDW Std Deviation (36.4-46.3) fL RDW Coeff of [place] (11.5-14.5) % Plt Count (130-400) K/uL MPV (9.4-12.4) fL Immature Gran % (Auto) % Neut % (Auto) % Lymph % (Auto) % [place] % (Auto) % Eos % (Auto) % Baso % (Auto) % Neut # (Auto) (1.40-6.50) K/uL Lymph # (Auto) (1.20-3.40) K/uL [place] # (Auto) (0.11-0.59) K/uL Eos # (Auto) (0.00-0.50) K/uL Baso # (Auto) (0.00-0.20) K/uL Immature Gran # (Auto) (0.01-0.20) K/uL Sodium (136-145) mmol/L Potassium (3.5-5.1) mmol/L Chloride (98-107) mmol/L Carbon Dioxide (21-32) mmol/L Anion Gap (3-11) BUN (6-23) mg/dl Creatinine (0.6-1.2) mg/dl Est Cr Clr Drug Dosing Est GFR ( Amer) ml/min Est GFR (Non-Af Amer) ml/min BUN/Creatinine Ratio (10-20) Glucose (70-99(Fasting)) mg/dl POC Glucose 351 H* (70-99) mg/dl Lactate (0.4-2.0) mmol/L Calcium (8.6-10.3) mg/dl Total Bilirubin (0.2-1.0) mg/dl AST (13-39) U/L ALT (7-52) U/L Alkaline Phosphatase (34-104) U/L Total Protein (6.0-8.3) gm/dl Albumin (3.4-5.0) gm/dl Globulin (2.5-4.0) gm/dl Albumin/Globulin Ratio (0.9-2) Lipase (11-82) U/L Procalcitonin (0-0.5) ng/ml Administered Medications Acetaminophen (Acetaminophen 500 Mg Tab) 1,000 mg PO Q8H [facility] Stop: 04/23/23 08:49 Last Admin: 03/24/23 16:27 Dose: Not Given Documented By: [facility] Admin: 03/24/23 11:09 Dose: Not Given Documented By: [facility] Baclofen (Baclofen 10 Mg Tab) 10 mg PO TID [facility] Stop: 04/23/23 08:59 Last Admin: 03/24/23 14:26 Dose: 10 mg Documented By: [facility] Admin: 03/24/23 11:10 Dose: 10 mg Documented By: [facility] Cyclobenzaprine HCl (Cyclobenzaprine Hcl 5 Mg Tab) 5 mg PO TID PRN PRN Reason: muscle spasm Stop: 04/23/23 08:49 Last Admin: 03/24/23 11:10 Dose: 5 mg Documented By: [facility] Gabapentin (Gabapentin 800 Mg Tab) 800 mg PO QID [facility] Stop: 04/23/23 08:59 Last Admin: 03/24/23 17:43 Dose: 800 mg Documented By: Admin: 03/24/23 14:25 Dose: 800 mg Documented By: Admin: 03/24/23 11:10 Dose: 800 mg Documented By: PRESTON Hydromorphone HCl (Hydromorphone Inj 0.5 Mg/0.5 Ml Syr) 0.5 mg IV Q3H PRN PRN Reason: Pain (6,7,8,9,10) Stop: 04/07/23 08:49 Last Admin: 03/24/23 19:36 Dose: 0.5 mg Documented By: Admin: 03/24/23 15:52 Dose: 0.5 mg Documented By: Admin: 03/24/23 12:41 Dose: 0.5 mg Documented By: Admin: 03/24/23 09:05 Dose: 0.5 mg Documented By: JO ANN Sodium Chloride (Nss) 1,000 mls @ 80 mls/hr IV .[id number] [facility] Stop: 03/25/23 03:44 Last Admin: 03/24/23 15:51 Dose: 80 mls/hr Documented By: PRESTON Insulin Aspart (Insulin Aspart Per Unit Charge) 0 units SC ACHS [facility] Stop: 04/23/23 08:49 Last Admin: 03/24/23 17:42 Dose: 10 units Documented By: PRESTON Co-signed By: JO ANN Admin: 03/24/23 12:42 Dose: 1,000 units Documented By: PRESTON Co-signed By: JO ANN Admin: 03/24/23 09:40 Dose: 5 units Documented By: PRESTON Co-signed By: JO ANN Insulin Glargine (Lantus Per Unit Charge) 10 units SQ BID [facility] Stop: 04/23/23 08:59 Last Admin: 03/24/23 09:40 Dose: 10 units Documented By: PRESOTN Co-signed By: JO ANN Losartan Potassium (Losartan Potassium 25 Mg Tab) 25 mg PO QAM [facility] Stop: 04/23/23 08:59 Last Admin: 03/24/23 11:10 Dose: 25 mg Documented By: PRESTON Oxycodone HCl (Oxycodone Hcl Ir 5 Mg Tab (Immediate Release)) 5 mg PO Q4H PRN PRN Reason: moderate to severe pain Stop: 01/13/24 12:53 Last Admin: 03/24/23 18:25 Dose: 5 mg Documented By: Admin: 03/24/23 14:25 Dose: 5 mg Documented By: PRESTON Pantoprazole Sodium (Pantoprazole 40 Mg Tab) 40 mg PO BID [facility] Stop: 04/23/23 08:59 Last Admin: 03/24/23 11:10 Dose: 40 mg Documented By: PRESTON Discontinued Medications Hydromorphone HCl (Hydromorphone Inj 0.5 Mg/0.5 Ml Syr) 0.5 mg IV NOW STA Stop: 03/24/23 03:41 Last Admin: 03/24/23 03:48 Dose: 0.5 mg Documented By: ERIN Hydromorphone HCl (Hydromorphone Inj 0.5 Mg/0.5 Ml Syr) Confirm Administered Dose 0.5 mg .ROUTE .STK-MED ONE Stop: 03/24/23 09:05 Last Admin: 03/24/23 09:47 Dose: Not Given Documented By: PRESTON Sodium Chloride (Nss) 1,000 mls @ 125 mls/hr IV .Q8H [facility] Stop: 04/22/23 23:44 Last Admin: 03/24/23 08:51 Dose: Not Given Documented By: Infusion: 03/24/23 08:51 Dose: Infused Documented By: Admin: 03/24/23 00:03 Dose: 125 mls/hr Documented By: Acetaminophen (Ofirmev) 1,000 mg in 100 mls @ 400 mls/hr IV NOW STA Stop: 03/24/23 00:04 Last Infusion: 03/24/23 00:37 Dose: Infused Documented By: Admin: 03/23/23 23:57 Dose: 400 mls/hr Documented By: Insulin Human Regular (Novolin-R Insulin Per Unit Charge) 6 units SC NOW STA Stop: 03/24/23 01:49 Last Admin: 03/24/23 02:04 Dose: 6 units Documented By: Co-signed By: ERIN Morphine Sulfate (Morphine Sulfate 4 Mg/Ml 1 Ml Carp\\Vial) 4 mg IV NOW STA Stop: 03/23/23 23:51 Last Admin: 03/23/23 23:56 Dose: 4 mg Documented By: Morphine Sulfate (Morphine Sulfate 4 Mg/Ml 1 Ml Carp\\Vial) 4 mg IV NOW STA Stop: 03/24/23 01:39 Last Admin: 03/24/23 01:56 Dose: 4 mg Documented By: Imaging Data Radiologist's Impression: Abdomen/Pelvis CT 03/23/23 23:50 Exam(s): CT ABDOMEN + PELVIS Without Contrast EXAM: CT Abdomen and Pelvis Without Intravenous Contrast CLINICAL HISTORY: Reason for exam: llq pain, hx inguinal hernia. TECHNIQUE: Axial computed tomography images of the abdomen and pelvis without intravenous contrast. CTDI is 23.52 mGy and DLP is 1284.29 mGy-cm. Automated exposure control was utilized for the study. A dose lowering technique was utilized adhering to the principles of ALARA. COMPARISON: 10/30/2022 FINDINGS: Lung bases: Unremarkable. No mass. No consolidation. ABDOMEN: Liver: Unremarkable. Gallbladder and bile ducts: Gallbladder surgically absent. No ductal dilation. Pancreas: Unremarkable. No ductal dilation. Spleen: Punctate calcified granuloma within the spleen. Adrenals: Unremarkable. No mass. Kidneys and ureters: Unremarkable. No hydroureteronephrosis. No renal, ureteral, or bladder calculi present. Stomach and bowel: Unremarkable. No obstruction. No mucosal thickening. PELVIS: Appendix: No findings to suggest acute appendicitis. Bladder: Unremarkable. No stones. Reproductive: Unremarkable as visualized. ABDOMEN and PELVIS: Intraperitoneal space: Unremarkable. No free air. No significant fluid collection. Bones/joints: No acute fracture. No dislocation. Soft tissues: Unremarkable. Vasculature: Unremarkable. No abdominal aortic aneurysm. Lymph nodes: Unremarkable. No enlarged lymph nodes. IMPRESSION: No acute findings in the abdomen or pelvis. Electronically signed by: Gianni Flanagan MD 03/24/23 02:50 AM Discharge Plan Visit Data Chief Complaint: Referred by Doctor Stated Complaint: HERNIA IN GROIN , BACK AND HIP PAIN ED Provider: Patricia Ely Discharge Problem: Abdominal pain, Acute pain of left hip, Hyperglycemia Patient Disposition: Admitted As Inpatient Discharge Instructions Interventions: ED Discharge Assessment Last Done: 03/24/23 06:07
[2023-03-24] MEDS: SODIUM CHLORIDE 0.9% 1,000 ML IV SCH ×2 (00:03→08:51)
[2023-03-24] MEDS ORDERED: MoRPHine SULFATE 4 MG/ML 1 ML CARP\\VIAL IV STA (01:38)
[2023-03-24] MEDS ORDERED: NovoLIN-R INSULIN PER UNIT CHARGE SC STA (01:48)
--- NOTE | 2023-03-24 02:52 | CT Scan Report ---
Exam(s): CT ABDOMEN + PELVIS Without Contrast EXAM: CT Abdomen and Pelvis Without Intravenous Contrast CLINICAL HISTORY: Reason for exam: llq pain, hx inguinal hernia. TECHNIQUE: Axial computed tomography images of the abdomen and pelvis without intravenous contrast. CTDI is 23.52 mGy and DLP is 1284.29 mGy-cm. Automated exposure control was utilized for the study. A dose lowering technique was utilized adhering to the principles of ALARA. COMPARISON: 10/30/2022 FINDINGS: Lung bases: Unremarkable. No mass. No consolidation. ABDOMEN: Liver: Unremarkable. Gallbladder and bile ducts: Gallbladder surgically absent. No ductal dilation. Pancreas: Unremarkable. No ductal dilation. Spleen: Punctate calcified granuloma within the spleen. Adrenals: Unremarkable. No mass. Kidneys and ureters: Unremarkable. No hydroureteronephrosis. No renal, ureteral, or bladder calculi present. Stomach and bowel: Unremarkable. No obstruction. No mucosal thickening. PELVIS: Appendix: No findings to suggest acute appendicitis. Bladder: Unremarkable. No stones. Reproductive: Unremarkable as visualized. ABDOMEN and PELVIS: Intraperitoneal space: Unremarkable. No free air. No significant fluid collection. Bones/joints: No acute fracture. No dislocation. Soft tissues: Unremarkable. Vasculature: Unremarkable. No abdominal aortic aneurysm. Lymph nodes: Unremarkable. No enlarged lymph nodes. IMPRESSION: No acute findings in the abdomen or pelvis. Electronically signed by: Gianni Flanagan MD 03/24/23 02:50 AM
[2023-03-24] MEDS ORDERED: HYDROmorphone INJ 0.5 MG/0.5 ML SYR IV STA (03:40)
--- NOTE | 2023-03-24 05:01 | History & Physical Report ---
Date of Service March 24, 2023 Assessment & Plan (1) Left inguinal pain: Plan: 62yo female presenting with left inguinal and hip pain. Patient seen at [facility] on 03/17 and diagnosed with a hernia. She has had worsening pain since. CT with no mention of hernia or acute pathology of the left inguinal area, abdomen or hip. Uncertain cause. Question possible inflammation of the inguinal canal, ligament strain? No evidence of infection on labwork or VS. -Admit to medical -Tylenol 1gm PO TID scheduled -Toradol PRN -Dilaudid PRN -Flexeril PRN -Ice to affected area -Monitor for signs/symptoms of infection -Continue home Baclofen and Gabapentin (2) Diabetes: Plan: With hyperglycemia today BSG of 345. Last [id number] on 10/31/22 -Continue Lantus 10u BID -ISS -Goal blood sugar 110 - 140 -Check HgbA1C (3) JOYCE (generalized anxiety disorder): Plan: Chronic. Stable -Continue Sertraline and Trazodone (4) GERD with esophagitis: Plan: Chronic. Stable -Continue Protonix 40mg po BID (5) Hypertension: Plan: Chronic. Well controlled -Continue Losartan and Metoprolol -Continue to monitor History of Present Illness Chief Complaint: left groin pain Primary Care Provider: DO Domenica Reedermor Amador is a pleasant 62yo female with history of HTN, HLP, DM, GERD and CAD presenting with left groin pain. Patient was seen in the ER at [facility] on 03/17 with pain and swelling in the left groin. She was diagnosed with a hernia and discharged home. On 03/18 she didn't feel well. She continued to have severe pain in her left groin - pain is constant, stabbing with occasional worsening with walking or standing. She called her PCP with these complaints and was directed to the ER. She was using a heating pad without improvement. She gets some relief with sitting in a hot bath or sitting next to the hot pellet stove. She denies trauma, no falls. No knee pain. She reports normal bowel movements and flatus. No blood, diarrhea or constipation. No urinary complaints. No vaginal discharge. She has been having some nausea but no vomiting. She had a slightly elevated temperature on 03/19 to 100 and some chills but none since. Dilaudid 0.5mg IV Insulin 6u SQ Morphine 4mg IV + 4mg IV NSS x 1L Tylenol 1gm Allergies Allergy/AdvReac Type Severity Reaction Status Date / Time Iodinated Contrast Media Allergy Severe STOP Verified 02/05/23 14:59 BREATHING bupropion [From Wellbutrin] Allergy Mild Hallucinati Verified 02/05/23 14:59 ng divalproex sodium Allergy Mild Vomiting Verified 02/05/23 14:59 [From Depakote] ketorolac [From Toradol] Allergy Mild can not Verified 02/05/23 14:59 void metronidazole Allergy Mild VOMITS Verified 02/05/23 14:59 nitrofurantoin Allergy Mild VOMITS Verified 02/05/23 14:59 pregabalin [From Lyrica] Allergy Mild Hallucinati Verified 02/05/23 14:59 ng strawberry Allergy Mild Hives Verified 02/05/23 14:59 tramadol Allergy Mild can not Verified 02/05/23 14:59 void ziprasidone [From Geodon] Allergy Mild Vomiting Verified 02/05/23 14:59 Home Medications Medication Instructions Recorded Confirmed Type insulin glargine 100 unit/mL (3 10 unit subcut BID 10/30/22 03/24/23 History mL) subcutaneous pen (Lantus Solostar U-100 Insulin) insulin lispro 100 unit/mL 1 sliding scale dose subcut TIDM 10/30/22 03/24/23 History subcutaneous pen (Humalog KwikPen (U-100) Insulin) losartan 25 mg tablet 25 mg PO QAM 10/30/22 03/24/23 History trazodone 100 mg tablet 100 mg PO HS 10/30/22 03/24/23 History baclofen 10 mg tablet 10 mg PO TID 90 days #270 tabs 11/14/22 03/24/23 Rx loperamide 2 mg capsule 2 mg PO BID PRN Diarrhea 12/04/22 03/24/23 History sertraline 50 mg tablet 150 mg PO HS 12/04/22 03/24/23 History pantoprazole 40 mg tablet,delayed 40 mg PO BID #60 tabs 12/12/22 03/24/23 Rx release gabapentin 800 mg tablet 800 mg PO QID #120 tabs 01/25/23 03/24/23 Rx metoprolol succinate 25 mg 37.5 mg (1.5 x 25 mg) PO HS #45 01/25/23 03/24/23 Rx tablet,extended release 24 hr tabs ondansetron 4 mg disintegrating 4 mg translingual Q8H PRN Nausea 01/25/23 03/24/23 Rx tablet #60 tabs oxycodone-acetaminophen 7.5 mg-325 1 tab PO Q8H PRN Pain 30 days #90 03/01/23 03/24/23 Rx mg tablet tabs Past Med/Surg History Medical History Chronic back pain History of chest pain Fibromyalgia History of pulmonary embolism roughly 15yrs ago--unknown cause--no blood thinners COVID-19 11/08/2022 @ [facility]--head cold symptoms, slight cough--no symptoms now IBS (irritable bowel syndrome) TIA (transient ischemic attack) "more than 15yrs ago"--unknown cause, no deficits--no neurologist Hypertension Hyperlipidemia GERD with esophagitis Diabetes IDDM Depression CAD (coronary artery disease) Surgical History History of fusion of cervical spine normal ROM History of repair of right rotator cuff History of bladder suspension procedure History of laparoscopy lysis of adhesions removal History of esophagogastroduodenoscopy (EGD) History of colonoscopy History of tooth extraction all teeth removed Hx of cholecystectomy H/O tubal ligation H/O: hysterectomy bhupendra bso H/O hernia repair x2 S/P coronary artery stent placement 5yrs ago @ [facility]--1 stent total H/O cardiac catheterization x1 roughly 5 yrs ago @ [facility]--1 stent placed--follows with Dr. Moy Family History Mother Respiratory arrest Coronary heart disease Hypertension Father Cancer Sister Diabetes Multiple sclerosis Other No family history of adverse response to anesthesia Social History Smoking Status: Former smoker packs per day: 1; Second Hand Exposure: No; Do You Dip or Chew Tobacco: No; Hx Alcohol Use: No Hx Substance Use: No Preferred Language: Turkmen Communication Ability: Effective Poker Manager Required: No Beliefs That Will Affect Care: None Current Living Situation: Significant Other Feels Safe at Home: Yes Assistive Devices: Denture - Upper, Denture - Lower and Glasses Review of Systems Review of Systems: All systems reviewed & are unremarkable except as noted in HPI & below Physical Exam Physical Exam: General: patient resting comfortably, NAD, non-toxic in appearance, AA&O x 4 Skin: warm, dry, intact, no rashes or lesions HEENT: NC/AT, PERRL, EOMI, anicteric sclera, conjunctiva without injection, external ear normal to inspection and nontender, nares patent, moist mucus membranes, dentition intact, no oropharyngeal lesions, neck supple, trachea midline, no LAD, no thyromegaly, no JVD Heart: +S1/S2, regular, no m/r/g Lungs: equal air entry bilaterally, no rales/rhonchi/wheezes Abd: +BS, soft, tenderness with palpation of LLQ, left groin and inguinal region. Pain with palpation of left hip. Area appears mildly edematous. Cannot fully appreciate inguinal nodes on exam due to pain, remainder of abdominal exam is unremarkable Ext: warm, 2+ pulses in UE/LE bilaterally, no clubbing/cyanosis or edema Neuro: nonfocal, patient AA&O x 4, speech intact, no facial droop, moving all extremities on command with equal strength 5/5 Results & Data Results & Data Vital Signs (Past 12 Hours) Vital Signs Pulse Resp BP Pulse Ox O2 Del Method 03/24/23 00:37 65 18 173/90 H 96 Room Air 03/23/23 23:37 73 18 197/136 H 97 Room Air Laboratory Results Laboratory Results WBC 7.40 K/ul (4.8-10.8) 03/23/23 17:10 RBC 4.62 M/uL (4.20-5.40) 03/23/23 17:10 Hgb 14.8 g/dl (12.0-16.0) 03/23/23 17:10 Hct 40.9 % (37.0-47.0) 03/23/23 17:10 MCV 88.5 fL (80.0-100.0) 03/23/23 17:10 MCH 32.0 pg (25.0-34.0) 03/23/23 17:10 MCHC 36.2 g/dL (32.0-36.0) H 03/23/23 17:10 RDW Std Deviation 40.8 fL (36.4-46.3) 03/23/23 17:10 RDW Coeff of Savan[place] 12.5 % (11.5-14.5) 03/23/23 17:10 Plt Count 190 K/uL (130-400) 03/23/23 17:10 MPV 10.1 fL (9.4-12.4) 03/23/23 17:10 Immature Gran % (Auto) 0.4 % 03/23/23 17:10 Neut % (Auto) 58.8 % 03/23/23 17:10 Lymph % (Auto) 30.1 % 03/23/23 17:10 [place] % (Auto) 6.9 % 03/23/23 17:10 Eos % (Auto) 3.1 % 03/23/23 17:10 Baso % (Auto) 0.7 % 03/23/23 17:10 Neut # (Auto) 4.35 K/uL (1.40-6.50) 03/23/23 17:10 Lymph # (Auto) 2.23 K/uL (1.20-3.40) 03/23/23 17:10 [place] # (Auto) 0.51 K/uL (0.11-0.59) 03/23/23 17:10 Eos # (Auto) 0.23 K/uL (0.00-0.50) 03/23/23 17:10 Baso # (Auto) 0.05 K/uL (0.00-0.20) 03/23/23 17:10 Immature Gran # (Auto) 0.03 K/uL (0.01-0.20) 03/23/23 17:10 Sodium 131 mmol/L (136-145) L 03/23/23 17:40 Potassium 4.1 mmol/L (3.5-5.1) 03/23/23 17:40 Chloride 94 mmol/L (98-107) L 03/23/23 17:40 Carbon Dioxide 29 mmol/L (21-32) 03/23/23 17:40 Anion Gap 8 (3-11) 03/23/23 17:40 BUN 15 mg/dl (6-23) 03/23/23 17:40 Creatinine 0.75 mg/dl (0.6-1.2) 03/23/23 17:40 Est Cr Clr Drug Dosing Not Reportable 03/23/23 17:40 Est GFR ( Amer) 99.0 ml/min 03/23/23 17:40 Est GFR (Non-Af Amer) 85.4 ml/min 03/23/23 17:40 BUN/Creatinine Ratio 20.0 (10-20) 03/23/23 17:40 Glucose 345 mg/dl (70-99(Fasting)) H* 03/23/23 17:40 POC Glucose 351 mg/dl (70-99) H* 03/24/23 02:04 Lactate 1.1 mmol/L (0.4-2.0) 03/24/23 00:52 Calcium 9.8 mg/dl (8.6-10.3) 03/23/23 17:40 Total Bilirubin 0.7 mg/dl (0.2-1.0) 03/23/23 17:40 AST 15 U/L (13-39) 03/23/23 17:40 ALT 12 U/L (7-52) 03/23/23 17:40 Alkaline Phosphatase 85 U/L (34-104) 03/23/23 17:40 Total Protein 7.5 gm/dl (6.0-8.3) 03/23/23 17:40 Albumin 4.4 gm/dl (3.4-5.0) 03/23/23 17:40 Globulin 3.1 gm/dl (2.5-4.0) 03/23/23 17:40 Albumin/Globulin Ratio 1.4 (0.9-2) 03/23/23 17:40 Lipase 31 U/L (11-82) 03/23/23 17:40 Procalcitonin 0.07 ng/ml (0-0.5) 03/24/23 00:52 Impressions Abdomen/Pelvis CT 03/23/23 23:50 Exam(s): CT ABDOMEN + PELVIS Without Contrast EXAM: CT Abdomen and Pelvis Without Intravenous Contrast CLINICAL HISTORY: Reason for exam: llq pain, hx inguinal hernia. TECHNIQUE: Axial computed tomography images of the abdomen and pelvis without intravenous contrast. CTDI is 23.52 mGy and DLP is 1284.29 mGy-cm. Automated exposure control was utilized for the study. A dose lowering technique was utilized adhering to the principles of ALARA. COMPARISON: 10/30/2022 FINDINGS: Lung bases: Unremarkable. No mass. No consolidation. ABDOMEN: Liver: Unremarkable. Gallbladder and bile ducts: Gallbladder surgically absent. No ductal dilation. Pancreas: Unremarkable. No ductal dilation. Spleen: Punctate calcified granuloma within the spleen. Adrenals: Unremarkable. No mass. Kidneys and ureters: Unremarkable. No hydroureteronephrosis. No renal, ureteral, or bladder calculi present. Stomach and bowel: Unremarkable. No obstruction. No mucosal thickening. PELVIS: Appendix: No findings to suggest acute appendicitis. Bladder: Unremarkable. No stones. Reproductive: Unremarkable as visualized. ABDOMEN and PELVIS: Intraperitoneal space: Unremarkable. No free air. No significant fluid collection. Bones/joints: No acute fracture. No dislocation. Soft tissues: Unremarkable. Vasculature: Unremarkable. No abdominal aortic aneurysm. Lymph nodes: Unremarkable. No enlarged lymph nodes. IMPRESSION: No acute findings in the abdomen or pelvis. Electronically signed by: Gianni Flanagan MD 03/24/23 02:50 AM PG Care Time/CCT Total # of Minutes Spent Total Time Spent with Patient: Total time spent is greater than 50% in coordination of care (as documented) at patient's floor/unit and/or counseling patient: Coding Level of Care Code 73185 INT INP/OBS CARE 2/55MIN Diagnoses Left inguinal pain R10.32 Diabetes E11.9 JOYCE (generalized anxiety disorder) F41.1 GERD with esophagitis K21.00 Hypertension I10
[2023-03-24] MEDS ORDERED: HYDROmorphone INJ 0.5 MG/0.5 ML SYR IV PRN (08:50)
[2023-03-24] MEDS ORDERED: DEXTROSE 50% 50 ML SYRINGE IV PRN (08:50)
[2023-03-24] MEDS ORDERED: CARBOHYDRATES FOR HYPOGLYCEMIA PO PRN (08:50)
[2023-03-24] MEDS ORDERED: ONDANSETRON INJ 2 MG/ML 2 ML VIAL IV PRN (08:50)
[2023-03-24] MEDS ORDERED: GLUCOSE 10 TAB/TUBE PO PRN (08:50)
[2023-03-24] MEDS ORDERED: GLUCAGON FOR INJ 1 MG VIAL SQ PRN (08:50)
[2023-03-24] MEDS ORDERED: KETOROLAC TROMETHAMINE 15 MG/ML VIAL IV PRN (08:50)
[2023-03-24] MEDS ORDERED: GLUCOSE 40% GEL 15 GM TUBE PO PRN (08:50)
[2023-03-24] MEDS ORDERED: HYDROmorphone INJ 0.5 MG/0.5 ML SYR ONE (09:04)
[2023-03-24] MEDS: HYDROmorphone INJ 0.5 MG/0.5 ML SYR IV PRN ×4 (09:05→19:36)
--- NOTE | 2023-03-24 09:29 | Hospitalist Progress Note ---
Date of Service March 24, 2023 Assessment & Plan (1) Left inguinal pain: Plan: 62yo female presenting with left inguinal and hip pain. Patient seen at [facility] on 03/17 and diagnosed with a hernia. She has had worsening pain since. CT with no mention of hernia or acute pathology of the left inguinal area, abdomen or hip. Uncertain cause. Question possible inflammation of the inguinal canal, ligament strain? No evidence of infection on labwork or VS. -Admit to medical -Tylenol 1gm PO TID scheduled -Toradol, Dilaudid, Flexeril PRN -Ice to affected area -Monitor for signs/symptoms of infection -Continue home Baclofen and Gabapentin 03/24 - recent PCP note obtaining hip xray given +IRWIN testing, will obtain xray L hip/pelvis as well as lumbar spine given leg symptoms Also check venous doppler for swelling/ambulatory dysfunction - NEGATIVE Check UA for eval possible underlying UTI Also asked radiology to relook at the CTAP from exam given mass/possible fluid collection to L groin region for further evaluation. Depending on re-read, ? consult general surgery. No mention of abscess on intial CTAP Also requesting records from [place] ER/visit/imaging for further evaluation Added Oxycodone prn for pain control as reports no effect w/ tylenol and only w/ IV diluadid for opiates. PT/OT consulted (2) Hyponatremia: Plan: Na 131 on admission, ?unclear if pain related Will add TSH to next lab draw Pain control as above Did not appear significantly dehydrated on exam but 3+ glucose on UA and 1L IVF ordered and will monitor BMP on repeat (3) Hyperglycemia: Plan: Glucose 345 on admission, given glargine x1 Last A1c 9 in October, repeat pending w/ AM labs BSG AC/HS, sliding scale and lantus 10u BID and BSgs improved to 190 this morning but 255 this afternoon and will tighten sliding scale/monitor for further adjustments (4) Diabetes: Plan: As above, repeat A1c pending for AM. Suspect will be higher. Adjustment to SSI as above and will monitor BSGs (5) JOYCE (generalized anxiety disorder): Plan: Chronic. Stable -Continue Sertraline and Trazodone (6) GERD with esophagitis: Plan: Chronic. Stable -Continue Protonix 40mg po BID (7) Hypertension: Plan: Chronic. Controlled. Presently 158/85 in setting of pain -Continue Losartan and Metoprolol -Continue to monitor Plan continued inpatient stay. monitoring re-read of CTAP/possible US for further eval vs surgery consult pending if hernia. Records requested from [place] as well for recent ER visit Admission and Anticipated Discharge Date Admission Date: March 24, 2023 Supervising Physician Co-Signing Physician Notes The patient was not seen by me. The chart was reviewed. Case discussed with HUMZA Guo. Agree with assessment and plan Subjective Bridge Note: admit after midnight Seen in 377, doing alright. Medicated for pain. Was sent by PCP to [facility] for eval, not to return to [place] per patient. Denies urinary symptoms, UA being sent now to lab, slightly concentrated/slight cloudiness. She notes has been moving her bowels. Discussed imaging obtained this morning negative but does have significant hardened area to her L groin/lower abdomen. No recent bites/drainage/redness. Did have temp 100F last week x 1 day. Reports pain has been ongoing for about 2 weeks, worse this past week starting on the after dc from [place].. Cannot take tramadol, tylenol ineffective. Has dilaudid, will order oxycodone for longer lasting control. Also US for further eval after discussing w/ radiologist. Physical Exam Physical Exam: General: patient resting comfortably, NAD, non-toxic in appearance, AA&O x 4 Skin: warm, dry, intact, no rashes or lesions HEENT: NC/AT, PERRL, EOMI, anicteric sclera, conjunctiva without injection, external ear normal to inspection and nontender, nares patent, moist mucus membranes, dentition intact, no oropharyngeal lesions, neck supple, trachea midline, no LAD, no thyromegaly, no JVD Heart: +S1/S2, regular, no m/r/g Lungs: equal air entry bilaterally, no rales/rhonchi/wheezes Abd: +BS, soft, tenderness with palpation of LLQ, left groin and inguinal region. Mild edema to LEFT pannus/groin region, ?fluid collect vs mass, TENDER to palpation Cannot fully appreciate inguinal nodes on exam due to pain, remainder of abdominal exam is unremarkable Ext: warm, 2+ pulses in UE/LE bilaterally, no clubbing/cyanosis or edema Neuro: nonfocal, patient AA&O x 4, speech intact, no facial droop, moving all extremities on command with equal strength 5/5 Results & Data Results & Data Vital Signs (Past 12 Hours) Vital Signs Temp Pulse Resp BP Pulse Ox O2 Del Method 03/24/23 08:34 36.4 C L 69 16 158/85 H 95 Room Air 03/24/23 06:07 Room Air 03/24/23 04:51 69 18 139/79 96 Room Air 03/24/23 00:37 65 18 173/90 H 96 Room Air 03/23/23 23:37 73 18 197/136 H 97 Room Air Laboratory Results 03/24/23 03/24/23 03/24/23 Range/Units 08:36 02:04 00:52 WBC (4.8-10.8) K/ul RBC (4.20-5.40) M/uL Hgb (12.0-16.0) g/dl Hct (37.0-47.0) % MCV (80.0-100.0) fL MCH (25.0-34.0) pg MCHC (32.0-36.0) g/dL RDW Std Deviation (36.4-46.3) fL RDW Coeff of [place] (11.5-14.5) % Plt Count (130-400) K/uL MPV (9.4-12.4) fL Immature Gran % (Auto) % Neut % (Auto) % Lymph % (Auto) % [place] % (Auto) % Eos % (Auto) % Baso % (Auto) % Neut # (Auto) (1.40-6.50) K/uL Lymph # (Auto) (1.20-3.40) K/uL [place] # (Auto) (0.11-0.59) K/uL Eos # (Auto) (0.00-0.50) K/uL Baso # (Auto) (0.00-0.20) K/uL Immature Gran # (Auto) (0.01-0.20) K/uL Sodium (136-145) mmol/L Potassium (3.5-5.1) mmol/L Chloride (98-107) mmol/L Carbon Dioxide (21-32) mmol/L Anion Gap (3-11) BUN (6-23) mg/dl Creatinine (0.6-1.2) mg/dl Est Cr Clr Drug Dosing Est GFR ( Amer) ml/min Est GFR (Non-Af Amer) ml/min BUN/Creatinine Ratio (10-20) Glucose (70-99(Fasting)) mg/dl POC Glucose 190 H 351 H* (70-99) mg/dl Lactate 1.1 (0.4-2.0) mmol/L Calcium (8.6-10.3) mg/dl Total Bilirubin (0.2-1.0) mg/dl AST (13-39) U/L ALT (7-52) U/L Alkaline Phosphatase (34-104) U/L Total Protein (6.0-8.3) gm/dl Albumin (3.4-5.0) gm/dl Globulin (2.5-4.0) gm/dl Albumin/Globulin Ratio (0.9-2) Lipase (11-82) U/L Procalcitonin 0.07 (0-0.5) ng/ml 03/23/23 03/23/23 Range/Units 17:40 17:10 WBC 7.40 (4.8-10.8) K/ul RBC 4.62 (4.20-5.40) M/uL Hgb 14.8 (12.0-16.0) g/dl Hct 40.9 (37.0-47.0) % MCV 88.5 (80.0-100.0) fL MCH 32.0 (25.0-34.0) pg MCHC 36.2 H (32.0-36.0) g/dL RDW Std Deviation 40.8 (36.4-46.3) fL RDW Coeff of [place] 12.5 (11.5-14.5) % Plt Count 190 (130-400) K/uL MPV 10.1 (9.4-12.4) fL Immature Gran % (Auto) 0.4 % Neut % (Auto) 58.8 % Lymph % (Auto) 30.1 % [place] % (Auto) 6.9 % Eos % (Auto) 3.1 % Baso % (Auto) 0.7 % Neut # (Auto) 4.35 (1.40-6.50) K/uL Lymph # (Auto) 2.23 (1.20-3.40) K/uL [place] # (Auto) 0.51 (0.11-0.59) K/uL Eos # (Auto) 0.23 (0.00-0.50) K/uL Baso # (Auto) 0.05 (0.00-0.20) K/uL Immature Gran # (Auto) 0.03 (0.01-0.20) K/uL Sodium 131 L (136-145) mmol/L Potassium 4.1 (3.5-5.1) mmol/L Chloride 94 L (98-107) mmol/L Carbon Dioxide 29 (21-32) mmol/L Anion Gap 8 (3-11) BUN 15 (6-23) mg/dl Creatinine 0.75 (0.6-1.2) mg/dl Est Cr Clr Drug Dosing Not Reportable Est GFR ( Amer) 99.0 ml/min Est GFR (Non-Af Amer) 85.4 ml/min BUN/Creatinine Ratio 20.0 (10-20) Glucose 345 H* (70-99(Fasting)) mg/dl POC Glucose (70-99) mg/dl Lactate (0.4-2.0) mmol/L Calcium 9.8 (8.6-10.3) mg/dl Total Bilirubin 0.7 (0.2-1.0) mg/dl AST 15 (13-39) U/L ALT 12 (7-52) U/L Alkaline Phosphatase 85 (34-104) U/L Total Protein 7.5 (6.0-8.3) gm/dl Albumin 4.4 (3.4-5.0) gm/dl Globulin 3.1 (2.5-4.0) gm/dl Albumin/Globulin Ratio 1.4 (0.9-2) Lipase 31 (11-82) U/L Procalcitonin (0-0.5) ng/ml Diagnostic Findings Abdomen/Pelvis CT 03/23/23 23:50 Exam(s): CT ABDOMEN + PELVIS Without Contrast EXAM: CT Abdomen and Pelvis Without Intravenous Contrast CLINICAL HISTORY: Reason for exam: llq pain, hx inguinal hernia. TECHNIQUE: Axial computed tomography images of the abdomen and pelvis without intravenous contrast. CTDI is 23.52 mGy and DLP is 1284.29 mGy-cm. Automated exposure control was utilized for the study. A dose lowering technique was utilized adhering to the principles of ALARA. COMPARISON: 10/30/2022 FINDINGS: Lung bases: Unremarkable. No mass. No consolidation. ABDOMEN: Liver: Unremarkable. Gallbladder and bile ducts: Gallbladder surgically absent. No ductal dilation. Pancreas: Unremarkable. No ductal dilation. Spleen: Punctate calcified granuloma within the spleen. Adrenals: Unremarkable. No mass. Kidneys and ureters: Unremarkable. No hydroureteronephrosis. No renal, ureteral, or bladder calculi present. Stomach and bowel: Unremarkable. No obstruction. No mucosal thickening. PELVIS: Appendix: No findings to suggest acute appendicitis. Bladder: Unremarkable. No stones. Reproductive: Unremarkable as visualized. ABDOMEN and PELVIS: Intraperitoneal space: Unremarkable. No free air. No significant fluid collection. Bones/joints: No acute fracture. No dislocation. Soft tissues: Unremarkable. Vasculature: Unremarkable. No abdominal aortic aneurysm. Lymph nodes: Unremarkable. No enlarged lymph nodes. IMPRESSION: No acute findings in the abdomen or pelvis. Electronically signed by: Gianni Flanagan MD 03/24/23 02:50 AM PG Care Time/CCT Total # of Minutes Spent Total Time Spent with Patient: Total time spent is greater than 50% in coordination of care (as documented) at patient's floor/unit and/or counseling patient: Coding Level of Care Code None Diagnoses Left inguinal pain R10.32 Hyponatremia E87.1 Hyperglycemia R73.9 Diabetes E11.9 JOYCE (generalized anxiety disorder) F41.1 GERD with esophagitis K21.00 Hypertension I10
[2023-03-24] MEDS: LANTUS PER UNIT CHARGE SQ SCH ×2 (09:40→21:36)
[2023-03-24] MEDS: INSULIN ASPART PER UNIT CHARGE SC SCH ×4 (09:40→21:36)
--- NOTE | 2023-03-24 10:52 | Ultrasound Report ---
LEFT LOWER EXTREMITY VENOUS DOPPLER HISTORY: Acute pain and swelling of the left lower extremity swelling, pain, ambulatory dysfunction, eval DVT COMPARISON STUDY: None. FINDINGS: There is normal compressibility, flow, and augmentation within the left lower extremity tosha p venous system. IMPRESSION: No DVT within the left lower extremity. ACT 112: Negative or not required by law. Electronically signed by: Hayden Moody M.D. 03/24/2023 10:51 AM
[2023-03-24] MEDS: ACETAMINOPHEN 500 MG TAB PO SCH ×2 (11:09→16:27)
[2023-03-24] MEDS: PANTOprazole 40 MG TAB PO SCH ×2 (11:10→20:49)
[2023-03-24] MEDS: CYCLOBENZAPRINE HCL 5 MG TAB PO PRN (11:10)
[2023-03-24] MEDS: LOSARTAN POTASSIUM 25 MG TAB PO SCH (11:10)
[2023-03-24] MEDS: GABAPENTIN 800 MG TAB PO SCH ×4 (11:10→20:48)
[2023-03-24] MEDS: BACLOFEN 10 MG TAB PO SCH ×3 (11:10→20:48)
--- NOTE | 2023-03-24 11:19 | XRay Report ---
XR hip LT 2V w pelvis HISTORY: 62 years-old Female L hip pain acute left hip pain COMPARISON: CT 03/24/2023 TECHNIQUE: AP view of the pelvis with 2 views of the left hip FINDINGS: Minimal osteoarthritis of the hips. No acute fracture, dislocation or avascular necrosis. Unremarkabl e soft tissues. IMPRESSION: No acute fracture or dislocation. ACT 112: Negative or not required by law. The above report was generated using voice recognition software. It may contain grammatical, syntax o r spelling errors. Electronically signed by: Hayden Moody M.D. 03/24/2023 11:17 AM
--- NOTE | 2023-03-24 11:22 | XRay Report ---
XR lumbar spine 2-3V HISTORY: 62 years-old Female L hip/groin/leg pain chronic low back pain COMPARISON: CT abdomen and pelvis 03/24/2023 TECHNIQUE: 3 views of the lumbar spine FINDINGS: Mild to moderate intervertebral disc space narrowing and spondylotic spurring with moderate facet art hrosis. No acute fracture, subluxation or endplate erosion. Cholecystectomy. Unremarkable soft tissue s. IMPRESSION: No acute fracture or subluxation. ACT 112: Negative or not required by law. The above report was generated using voice recognition software. It may contain grammatical, syntax o r spelling errors. Electronically signed by: Hayden Moody M.D. 03/24/2023 11:21 AM
[2023-03-24 13:10] LABS: Appearance Urine Clear (Clear); Bilirubin Urine Negative (Negative); Blood Urine Negative (Negative); Color Urine Yellow; Glucose Urine UA 3+ (Negative); Ketones Urine Negative (Negative); Leukocyte Esterase Urine Negative (Negative); Nitrite Urine Negative (Negative); Protein Urine Negative (Negative); Specific Gravity Urine 1.033 (1.000-1.030); Urobilinogen Urine Negative (Negative)
[2023-03-24] MEDS: oxyCODONE HCL IR 5 MG TAB (IMMEDIATE RELEASE) PO PRN ×3 (14:25→22:52)
[2023-03-24] MEDS ORDERED: SODIUM CHLORIDE 0.9% 1,000 ML IV SCH (15:15)
[2023-03-24 16:47] LABS: BUN Creatinine Ratio 32.8 (10-20); Creatinine Clr Calc Pharmacy 109.9 ml/min; Est GFR (African American) 114.5 ml/min; Est GFR (Non-African American) 98.8 ml/min; Potassium 3.9 mmol/L (3.5-5.1)
[2023-03-24 17:03] LABS: Thyroid Stimulating Hormone 1.544 uIu/ml (0.300-4.500)
[2023-03-24] MEDS: SERTRALINE HCL 50 MG TABLET PO SCH (20:49)
[2023-03-24] MEDS: METOPROLOL SUCC 25MG EXT REL TAB PO SCH (20:49)
[2023-03-24] MEDS: traZODone HCL 100 MG TAB PO SCH (20:49)
[2023-03-25] MEDS: ACETAMINOPHEN 500 MG TAB PO SCH ×3 (00:04→17:19)
[2023-03-25] MEDS: oxyCODONE HCL IR 5 MG TAB (IMMEDIATE RELEASE) PO PRN ×2 (05:53→10:33)
--- NOTE | 2023-03-25 06:55 | Ultrasound Report ---
ULTRASOUND LEFT GROIN NONVASCULAR CLINICAL HISTORY: Left groin pain. COMPARISON STUDY: Pelvic CT dated 03/24/2023. FINDINGS: Real-time yo scale sonography of the left groin is performed to assess for internal herni a. There is a small nonreducible fat-containing left groin hernia. There is no bowel fluid shown with in the hernia. IMPRESSION: Small and nonreducible fat-containing left groin hernia. Electronically signed by: Charly Peterson M.D. 03/25/2023 6:54 AM
[2023-03-25] MEDS: HYDROmorphone INJ 0.5 MG/0.5 ML SYR IV PRN ×6 (07:35→22:24)
[2023-03-25] MEDS: INSULIN ASPART PER UNIT CHARGE SC SCH ×4 (08:22→22:13)
[2023-03-25] MEDS: PANTOprazole 40 MG TAB PO SCH ×2 (08:23→20:26)
[2023-03-25] MEDS: LOSARTAN POTASSIUM 25 MG TAB PO SCH (08:23)
[2023-03-25] MEDS: BACLOFEN 10 MG TAB PO SCH ×3 (08:23→20:27)
[2023-03-25] MEDS: GABAPENTIN 800 MG TAB PO SCH ×4 (08:23→20:25)
[2023-03-25] MEDS: LANTUS PER UNIT CHARGE SQ SCH (08:23)
[2023-03-25] MEDS: CYCLOBENZAPRINE HCL 5 MG TAB PO PRN (08:23)
[2023-03-25 08:27] LABS: Hematocrit (blood only) 36.4 % (37.0-47.0); Hemoglobin 12.9 g/dl (12.0-16.0); Mean Corpuscular Hemoglobin 32.7 pg (25.0-34.0); Mean Corpuscular Hgb Conc 35.4 g/dL (32.0-36.0); Mean Corpuscular Volume 92.2 fL (80.0-100.0); Mean Platelet Volume 9.9 fL (9.4-12.4); Platelet Count 145 K/uL (130-400); RDW Coefficient of Variation 12.5 % (11.5-14.5); RDW Standard Deviation 42.5 fL (36.4-46.3); Red Blood Count 3.95 M/uL (4.20-5.40); White Blood Count 4.94 K/ul (4.8-10.8)
--- NOTE | 2023-03-25 08:37 | Hospitalist Progress Note ---
Date of Service March 25, 2023 Assessment & Plan (1) Inguinal hernia: Plan: 62yo female presenting with left inguinal and hip pain. Patient seen at [facility] on 03/17 and diagnosed with a hernia. She has had worsening pain since. CT with no mention of hernia or acute pathology of the left inguinal area, abdomen or hip HOWEVER, see below as discussed w/ radiology evening 03/24 and US hernia obtained for further evaluation given findings on examination -Prior requested records from [facility]/visit/imaging for further evaluation. Not yet available US obtained overnight 03/24 Impression w/ Small and nonreducible fat-containing LEFT groin hernia -- -Fat containing, no evidence for bowel fluid within the hernia. Lactic 1.1 on admission, no leukocytosis/fevers -General surgery consulted, Dr Red. Patient did already eat breakfast -Pain control/antiemetics prn. Bowel regimen (+BM 03/25) NPO at midnight for surgery with Dr Red in AM given nonreducible/continued pain (2) Left inguinal pain: Plan: As above, 2nd to inguinal hernia Prior eval to US hernia w/ venous doppler LLE due to slightly swelling- NEGATIVE for DVT Lumbar spine xray with mild-moderate disc narrowing but no acute fracture or subluxation Hip/pelvis x-ray with minimal arthritis of the hips, no acute fracture or dislocation US w/ Small and nonreducible fat-containing left groin hernia (noting lactic 1.1 on admission, no leukocytosis/fever). general surgery consulted/NPO at midnight as above (3) Hyponatremia: Plan: Na 131 on admission, ?unclear if pain related. TSH wnl 1L IVF ordered for dehydration/3+ glucose on UA Na improved to 135 on repeat (noting normal if corrected for glucose) TSH wnl Pain control BMP in AM (4) Hyperglycemia: Plan: Glucose 345 on admission, given glargine x1 Last A1c 9 in October, repeat added BSG AC/HS, sliding scale and lantus 10u BID with tightened parameters for SSI and BSgs improved to 190 however elevated overnight into today 264/300 on AM labs Will increase glargine to 20u BID for today, consulted pharmacy for glycemic assistance given repeat A1c worse to 11.7. DM educator consulted Monitor BSGs on repeat (5) Diabetes: Plan: Repeat A1c worse at 11.7. ?compliance at home Glycemic consulted as above, DM educator (6) JOYCE (generalized anxiety disorder): Plan: Chronic. Stable Continue Sertraline and Trazodone (7) GERD with esophagitis: Plan: Chronic. Stable Continue Protonix 40mg po BID (8) Hypertension: Plan: Chronic. Controlled. Presently 163/87 in setting of pain Continue Losartan and Metoprolol Continue to monitor Plan continued inpatient stay NPO at midnight for OR with Dr Red in AM Admission and Anticipated Discharge Date Admission Date: March 24, 2023 Supervising Physician Co-Signing Physician Notes The patient was not seen by me. The chart was reviewed. Case discussed with HUMZA Guo. Agree with assessment and plan Subjective Evaluated this morning, doing alright, continued pain to her groin. Discussed surgery consult based on ultrasound results and she did eat so will plan for surgery tomorrow. She was just seen by Dr Red. No fever/chills, chest pain, shortness of breath, tachycardia or nausea at present. Discussed to alert of any fever/chills, redness, worsened pain. She did report she has been passing gas and has moved her bowels. Questions/concerns addressed at this time. Physical Exam Physical Exam: General: WD/WN female sitting up in bed, NAD but minimally uncomfortable with movement Head atraumatic, normocephalic, mmm, trachea midline Resp even/unlabored, no w/c/r, on room air CV: RRR, no significant mrg, no pitting edema/calf tenderness GI: +BS, soft TENDERNESS to L groin/nonreducible hernia/edema no warmth/erythema MSK/Neuro: no focal deficits, no slurred speech/facial droop, strength equal bilaterally (reduced ROM to hip due to pain from hernia at present), NVI Psych: AOx3 Results & Data Results & Data Vital Signs (Past 12 Hours) Vital Signs Temp Pulse Resp BP Pulse Ox O2 Del Method 03/25/23 05:55 36.5 C 74 16 163/87 H 92 Room Air 03/24/23 20:47 36.6 C 83 16 103/68 94 Room Air Laboratory Results 03/25/23 03/25/23 03/24/23 Range/Units 08:02 07:41 Unknown WBC 4.94 (4.8-10.8) K/ul RBC 3.95 L (4.20-5.40) M/uL Hgb 12.9 (12.0-16.0) g/dl Hct 36.4 L (37.0-47.0) % MCV 92.2 (80.0-100.0) fL MCH 32.7 (25.0-34.0) pg MCHC 35.4 (32.0-36.0) g/dL RDW Std Deviation 42.5 (36.4-46.3) fL RDW Coeff of Savan[place] 12.5 (11.5-14.5) % Plt Count 145 (130-400) K/uL MPV 9.9 (9.4-12.4) fL Sodium 135 L (136-145) mmol/L Potassium 3.9 (3.5-5.1) mmol/L Chloride 101 (98-107) mmol/L Carbon Dioxide 28 (21-32) mmol/L Anion Gap 6 (3-11) BUN 17 (6-23) mg/dl Creatinine 0.62 (0.6-1.2) mg/dl Est Cr Clr Drug Dosing 102.8 ml/min Est GFR ( Amer) 112.0 ml/min Est GFR (Non-Af Amer) 96.6 ml/min BUN/Creatinine Ratio 27.4 H (10-20) Glucose 300 H (70-99(Fasting)) mg/dl POC Glucose 264 H (70-99) mg/dl Estimat Average Glucose 289 mg/dl Hemoglobin A1c 11.7 H (4.5-5.6) % Calcium 8.7 (8.6-10.3) mg/dl Total Creatine Kinase (26-192) U/L TSH (0.300-4.500) uIu/ml Urine Color Yellow Urine Appearance Clear (Clear) Urine pH 6.0 (4.5-7.5) Ur Specific Walsh 1.033 H (1.000-1.030) Urine Protein Negative (Negative) Urine Glucose (UA) 3+ H (Negative) Urine Ketones Negative (Negative) Urine Blood Negative (Negative) Urine Nitrite Negative (Negative) Urine Bilirubin Negative (Negative) Urine Urobilinogen Negative (Negative) Ur Leukocyte Esterase Negative (Negative) 03/24/23 03/24/23 03/24/23 Range/Units 20:47 16:27 16:16 WBC (4.8-10.8) K/ul RBC (4.20-5.40) M/uL Hgb (12.0-16.0) g/dl Hct (37.0-47.0) % MCV (80.0-100.0) fL MCH (25.0-34.0) pg MCHC (32.0-36.0) g/dL RDW Std Deviation (36.4-46.3) fL RDW Coeff of Savan[place] (11.5-14.5) % Plt Count (130-400) K/uL MPV (9.4-12.4) fL Sodium 136 (136-145) mmol/L Potassium 3.9 (3.5-5.1) mmol/L Chloride 100 (98-107) mmol/L Carbon Dioxide 30 (21-32) mmol/L Anion Gap 6 (3-11) BUN 19 (6-23) mg/dl Creatinine 0.58 L (0.6-1.2) mg/dl Est Cr Clr Drug Dosing 109.9 ml/min Est GFR ( Amer) 114.5 ml/min Est GFR (Non-Af Amer) 98.8 ml/min BUN/Creatinine Ratio 32.8 H (10-20) Glucose 183 H (70-99(Fasting)) mg/dl POC Glucose 254 H 198 H (70-99) mg/dl Estimat Average Glucose mg/dl Hemoglobin A1c (4.5-5.6) % Calcium 9.0 (8.6-10.3) mg/dl Total Creatine Kinase (26-192) U/L TSH 1.544 (0.300-4.500) uIu/ml Urine Color Urine Appearance (Clear) Urine pH (4.5-7.5) Ur Specific Walsh (1.000-1.030) Urine Protein (Negative) Urine Glucose (UA) (Negative) Urine Ketones (Negative) Urine Blood (Negative) Urine Nitrite (Negative) Urine Bilirubin (Negative) Urine Urobilinogen (Negative) Ur Leukocyte Esterase (Negative) 03/24/23 03/24/23 Range/Units 11:34 09:50 WBC (4.8-10.8) K/ul RBC (4.20-5.40) M/uL Hgb (12.0-16.0) g/dl Hct (37.0-47.0) % MCV (80.0-100.0) fL MCH (25.0-34.0) pg MCHC (32.0-36.0) g/dL RDW Std Deviation (36.4-46.3) fL RDW Coeff of Savanah (11.5-14.5) % Plt Count (130-400) K/uL MPV (9.4-12.4) fL Sodium (136-145) mmol/L Potassium (3.5-5.1) mmol/L Chloride (98-107) mmol/L Carbon Dioxide (21-32) mmol/L Anion Gap (3-11) BUN (6-23) mg/dl Creatinine (0.6-1.2) mg/dl Est Cr Clr Drug Dosing ml/min Est GFR ( Amer) ml/min Est GFR (Non-Af Amer) ml/min BUN/Creatinine Ratio (10-20) Glucose (70-99(Fasting)) mg/dl POC Glucose 255 H (70-99) mg/dl Estimat Average Glucose mg/dl Hemoglobin A1c (4.5-5.6) % Calcium (8.6-10.3) mg/dl Total Creatine Kinase 32 (26-192) U/L TSH (0.300-4.500) uIu/ml Urine Color Urine Appearance (Clear) Urine pH (4.5-7.5) Ur Specific Walsh (1.000-1.030) Urine Protein (Negative) Urine Glucose (UA) (Negative) Urine Ketones (Negative) Urine Blood (Negative) Urine Nitrite (Negative) Urine Bilirubin (Negative) Urine Urobilinogen (Negative) Ur Leukocyte Esterase (Negative) Diagnostic Findings Hip/Pelvis X-Ray 03/24/23 09:22 XR hip LT 2V w pelvis HISTORY: 62 years-old Female L hip pain acute left hip pain COMPARISON: CT 03/24/2023 TECHNIQUE: AP view of the pelvis with 2 views of the left hip FINDINGS: Minimal osteoarthritis of the hips. No acute fracture, dislocation or avascular necrosis. Unremarkable soft tissues. IMPRESSION: No acute fracture or dislocation. ACT 112: Negative or not required by law. The above report was generated using voice recognition software. It may contain grammatical, syntax or spelling errors. Electronically signed by: Hayden Moody M.D. 03/24/2023 11:17 AM Lumbar Spine X-Ray 03/24/23 09:22 XR lumbar spine 2-3V HISTORY: 62 years-old Female L hip/groin/leg pain chronic low back pain COMPARISON: CT abdomen and pelvis 03/24/2023 TECHNIQUE: 3 views of the lumbar spine FINDINGS: Mild to moderate intervertebral disc space narrowing and spondylotic spurring with moderate facet arthrosis. No acute fracture, subluxation or endplate erosion. Cholecystectomy. Unremarkable soft tissues. IMPRESSION: No acute fracture or subluxation. ACT 112: Negative or not required by law. The above report was generated using voice recognition software. It may contain grammatical, syntax or spelling errors. Electronically signed by: Hayden Moody M.D. 03/24/2023 11:21 AM Venous Doppler Study 03/24/23 09:22 LEFT LOWER EXTREMITY VENOUS DOPPLER HISTORY: Acute pain and swelling of the left lower extremity swelling, pain, ambulatory dysfunction, eval DVT COMPARISON STUDY: None. FINDINGS: There is normal compressibility, flow, and augmentation within the left lower extremity deep venous system. IMPRESSION: No DVT within the left lower extremity. ACT 112: Negative or not required by law. Electronically signed by: Hayden Moody M.D. 03/24/2023 10:51 AM Abdomen Ultrasound 03/24/23 15:44 ULTRASOUND LEFT GROIN NONVASCULAR CLINICAL HISTORY: Left groin pain. COMPARISON STUDY: Pelvic CT dated 03/24/2023. FINDINGS: Real-time yo scale sonography of the left groin is performed to assess for internal hernia. There is a small nonreducible fat-containing left groin hernia. There is no bowel fluid shown within the hernia. IMPRESSION: Small and nonreducible fat-containing left groin hernia. Electronically signed by: Charly Peterson M.D. 03/25/2023 6:54 AM PG Care Time/CCT Total # of Minutes Spent Total Time Spent with Patient: Total time spent is greater than 50% in coordination of care (as documented) at patient's floor/unit and/or counseling patient: Coding Level of Care Code 27914 SUB INP/OBS CARE 3/50MIN Diagnoses Inguinal hernia K40.90 Left inguinal pain R10.32 Hyponatremia E87.1 Hyperglycemia R73.9 Diabetes E11.9 JOYCE (generalized anxiety disorder) F41.1 GERD with esophagitis K21.00 Hypertension I10
[2023-03-25 08:40] LABS: Estimated Average Glucose 289 mg/dl; Hemoglobin A1C 11.7 % (4.5-5.6)
[2023-03-25 08:42] LABS: BUN Creatinine Ratio 27.4 (10-20); Calcium 8.7 mg/dl (8.6-10.3); Creatinine Clr Calc Pharmacy 102.8 ml/min; Est GFR (Non-African American) 96.6 ml/min; Potassium 3.9 mmol/L (3.5-5.1)
[2023-03-25] MEDS ORDERED: PHARMACY GLYCEMIC MGMT CONSULT PRN (08:56)
[2023-03-25] MEDS ORDERED: LANTUS PER UNIT CHARGE SQ ONE (09:45)
--- NOTE | 2023-03-25 10:25 | Surgery Consultation ---
Date of Consultation March 25, 2023 Assessment & Plan (1) Incarcerated left inguinal hernia: Her pain is precisely in the inguinal canal. Unfortunately she ate today. We discussed repair while she is in the hospital since she is so uncomfortable. This would be an open repair with mesh. We discussed bleeding infection infection of mesh injury to other organs DVT PE OR CVA etc. Following this I answered all of her questions. She agrees with the plan. We will schedule her for an open left inguinal hernia repair with mesh tomorrow morning. (2) Diabetes: (3) CAD (coronary artery disease): (4) Hyperlipidemia: (5) Hypertension: History of Present Illness Attending Physician: Gamal Ni MD History of Present Illness 62-year-old female who has had about a 3-week history of left groin pain. She has been worked up with imaging which failed to diagnose what has now been confirmed as a left inguinal hernia with fat incarceration. The pain is persistent and she is quite uncomfortable. Allergies Allergy/AdvReac Type Severity Reaction Status Date / Time Iodinated Contrast Media Allergy Severe STOP Verified 02/05/23 14:59 BREATHING bupropion [From Wellbutrin] Allergy Mild Hallucinati Verified 02/05/23 14:59 ng divalproex sodium Allergy Mild Vomiting Verified 02/05/23 14:59 [From Depakote] ketorolac [From Toradol] Allergy Mild can not Verified 02/05/23 14:59 void metronidazole Allergy Mild VOMITS Verified 02/05/23 14:59 nitrofurantoin Allergy Mild VOMITS Verified 02/05/23 14:59 pregabalin [From Lyrica] Allergy Mild Hallucinati Verified 02/05/23 14:59 ng strawberry Allergy Mild Hives Verified 02/05/23 14:59 tramadol Allergy Mild can not Verified 02/05/23 14:59 void ziprasidone [From Geodon] Allergy Mild Vomiting Verified 02/05/23 14:59 Home Medications Medication Instructions Recorded Confirmed Type insulin glargine 100 unit/mL (3 10 unit subcut BID 10/30/22 03/24/23 History mL) subcutaneous pen (Lantus Solostar U-100 Insulin) insulin lispro 100 unit/mL 1 sliding scale dose subcut TIDM 10/30/22 03/24/23 History subcutaneous pen (Humalog KwikPen (U-100) Insulin) losartan 25 mg tablet 25 mg PO QAM 10/30/22 03/24/23 History trazodone 100 mg tablet 100 mg PO HS 10/30/22 03/24/23 History baclofen 10 mg tablet 10 mg PO TID 90 days #270 tabs 11/14/22 03/24/23 Rx loperamide 2 mg capsule 2 mg PO BID PRN Diarrhea 12/04/22 03/24/23 History sertraline 50 mg tablet 150 mg PO HS 12/04/22 03/24/23 History pantoprazole 40 mg tablet,delayed 40 mg PO BID #60 tabs 12/12/22 03/24/23 Rx release gabapentin 800 mg tablet 800 mg PO QID #120 tabs 01/25/23 03/24/23 Rx metoprolol succinate 25 mg 37.5 mg (1.5 x 25 mg) PO HS #45 01/25/23 03/24/23 Rx tablet,extended release 24 hr tabs ondansetron 4 mg disintegrating 4 mg translingual Q8H PRN Nausea 01/25/23 03/24/23 Rx tablet #60 tabs oxycodone-acetaminophen 7.5 mg-325 1 tab PO Q8H PRN Pain 30 days #90 03/01/23 03/24/23 Rx mg tablet tabs Patient History Medical History Chronic back pain History of chest pain Fibromyalgia History of pulmonary embolism roughly 15yrs ago--unknown cause--no blood thinners COVID-19 11/08/2022 @ [facility]--head cold symptoms, slight cough--no symptoms now IBS (irritable bowel syndrome) TIA (transient ischemic attack) "more than 15yrs ago"--unknown cause, no deficits--no neurologist Hypertension Hyperlipidemia GERD with esophagitis Diabetes IDDM Depression CAD (coronary artery disease) Surgical History History of fusion of cervical spine normal ROM History of repair of right rotator cuff History of bladder suspension procedure History of laparoscopy lysis of adhesions removal History of esophagogastroduodenoscopy (EGD) History of colonoscopy History of tooth extraction all teeth removed Hx of cholecystectomy H/O tubal ligation H/O: hysterectomy bhupendra bso H/O hernia repair x2 S/P coronary artery stent placement 5yrs ago @ [facility] [place]--1 stent total H/O cardiac catheterization x1 roughly 5 yrs ago @ [facility]--1 stent placed--follows with Dr. Moy Family History Mother Respiratory arrest Coronary heart disease Hypertension Father Cancer Sister Diabetes Multiple sclerosis Other No family history of adverse response to anesthesia Social History Smoking Status: Never smoker packs per day: 1; Second Hand Exposure: No; Do You Dip or Chew Tobacco: No; Hx Alcohol Use: No Hx Substance Use: No Preferred Language: Kyrgyz Communication Ability: Effective Rough Planer Tender Required: No Beliefs That Will Affect Care: None Current Living Situation: Significant Other Feels Safe at Home: Yes Assistive Devices: Denture - Upper, Denture - Lower and Glasses Review of Systems Review of Systems: All systems reviewed & are unremarkable except as noted in HPI & below Physical Exam Constitutional: WD/WN, vitals as above no acute distress and not ill appearing Eyes: PERRL, conjunctivae normal, anicteric sclerae EOM intact bilaterally ENMT: external ear and nose normal, oropharynx normal Ears: no hearing impairment Neck: trachea midline, no thyromegaly Respiratory: normal respiratory effort; no respiratory distress and does not use accessory muscles Cardiovascular: Rate/Rhythm: regular rate and regular rhythm Gastrointestinal (Abdomen): Soft. Nontender. Small palpable left inguinal hernia. It is tender. Skin: no rashes, warm and dry Psychiatric: Orientation: alert, oriented x 3 and cooperative Results & Data Vital Signs (Past 12 Hours) Vital Signs Temp Pulse Resp BP Pulse Ox O2 Del Method 03/25/23 05:55 36.5 C 74 16 163/87 H 92 Room Air PG Care Time/CCT Total # of Minutes Spent Total Time Spent with Patient: Total time spent is greater than 50% in coordination of care (as documented) at patient's floor/unit and/or counseling patient: Coding Level of Care Code 14685 IN/OBS CONSULT LVL 3,45M Diagnoses Incarcerated left inguinal hernia K40.30 Diabetes E11.9 CAD (coronary artery disease) I25.10 Hyperlipidemia E78.5 Hypertension I10
--- NOTE | 2023-03-25 12:15 | Pharmacy Report ---
Pharmacy Glycemic Short Note 2 - Date of Service March 25, 2023 - Glycemic Short BSG Results (Last 24 hours): 03/24/23 03/24/23 03/24/23 16:16 16:27 20:47 Glucose 183 H POC Glucose 198 H 254 H 03/25/23 03/25/23 03/25/23 07:41 08:02 11:51 Glucose 300 H POC Glucose 264 H 241 H OUTPATIENT ANTIDIABETIC REGIMEN: * Lantus 10 units SQ BID * HumaLog TID with meals ASSESSMENT: * 62 year old female scheduled for open left inguinal hernia repair with mesh tomorrow morning. NPO after midnight. * Hyperglycemic on 49 units of insulin/day yesterday, 20 units basal. * Give extra dose of basal now, tighten CF/CR at this time, will hold basal tomorrow morning until patient is evaluated by pharmacist in AM. PLAN FOR INPATIENT GLYCEMIC CONTROL: * Hold outpatient diabetes medications * Basal insulin * Lantus 15 units SQ x 1 dose now, then increase to 20-30 units SQ BID * Bolus insulin * NovoLog per scale ACHS or Q6hrs while NPO * Goal Range: Low 110 mg/dL - High 140 mg/dL * Correction Factor: 20 mg/dL/unit * Nutritional / Prandial insulin per carb ratio of 1 unit per 6 grams CHO consumed
[2023-03-25] MEDS: SENNA 8.6 MG TAB PO SCH (17:19)
[2023-03-25] MEDS: DICLOFENAC SOD 1% GEL 100 GM TUBE EXT SCH ×2 (17:19→20:25)
[2023-03-25] MEDS: DOCUSATE SODIUM 100 MG CAP PO SCH (20:26)
[2023-03-25] MEDS: SERTRALINE HCL 50 MG TABLET PO SCH (20:26)
[2023-03-25] MEDS: METOPROLOL SUCC 25MG EXT REL TAB PO SCH (20:30)
[2023-03-25] MEDS ORDERED: LANTUS PER UNIT CHARGE SQ SCH (21:00)
[2023-03-25] MEDS: traZODone HCL 100 MG TAB PO SCH (22:13)
[2023-03-26] MEDS: NSS + 20MEQ KCL 20 MEQ/1,000 ML BAG IV SCH ×2 (00:44→12:45)
[2023-03-26] MEDS: HYDROmorphone INJ 0.5 MG/0.5 ML SYR IV PRN ×6 (00:45→19:27)
[2023-03-26] MEDS: ACETAMINOPHEN 500 MG TAB PO SCH ×4 (01:26→20:19)
[2023-03-26] MEDS ORDERED: INSULIN ASPART PER UNIT CHARGE SC SCH (06:00)
[2023-03-26 06:33] LABS: Hematocrit (blood only) 36.1 % (37.0-47.0); Hemoglobin 12.6 g/dl (12.0-16.0); Mean Corpuscular Hgb Conc 34.9 g/dL (32.0-36.0); Mean Corpuscular Volume 91.6 fL (80.0-100.0); Platelet Count 141 K/uL (130-400); RDW Coefficient of Variation 12.3 % (11.5-14.5); RDW Standard Deviation 41.1 fL (36.4-46.3); Red Blood Count 3.94 M/uL (4.20-5.40); White Blood Count 6.24 K/ul (4.8-10.8)
[2023-03-26 06:55] LABS: Prothrombin Time 10.8 Seconds (9.0-12.0)
[2023-03-26 06:58] LABS: Calcium 8.7 mg/dl (8.6-10.3); Creatinine Clr Calc Pharmacy 88.5 ml/min; Est GFR (Non-African American) 89.8 ml/min; Magnesium 1.7 mg/dl (1.7-2.4); Potassium 3.8 mmol/L (3.5-5.1)
--- NOTE | 2023-03-26 07:09 | History & Physical Bridge Note ---
Date of Service March 26, 2023 History & Physical Bridge Note I have examined the patient, reviewed the History & Physical and in the interval since the performance of the History & Physical I have noted the following changes of clinical significance: no changes noted
[2023-03-26] MEDS ORDERED: BUPIVACAINE/EPINEPHRINE 0.5% MPF 1:200,000 30 ML VIAL ONE (07:38)
[2023-03-26] MEDS ORDERED: LIDOCAINE 2% 2 ML VIAL/AMP(20MG/ML) INFIL ONE (07:56)
[2023-03-26] MEDS ORDERED: PROPOFOL IV EMULSION 10 MG/ML 20 ML VIAL IV ONE (07:56)
[2023-03-26] MEDS ORDERED: fentaNYL citrate PF 100 MCG/2 ML VIAL ONE ×2 (07:56)
[2023-03-26] MEDS ORDERED: MIDAZOLAM HCL 1 MG/ML 2ML VIAL ONE (07:56)
[2023-03-26] MEDS ORDERED: ROCURONIUM BROMIDE 10 MG/ML 5 ML VIAL IV ONE (07:56)
[2023-03-26] MEDS ORDERED: ceFAZolin 2,000 MG/15 ML IV PUSH IV ONE (08:07)
--- NOTE | 2023-03-26 08:08 | Hospitalist Progress Note ---
Date of Service March 26, 2023 Assessment & Plan (1) Inguinal hernia: Plan: 62yo female presenting with left inguinal and hip pain. Patient seen at [facility] on 03/17 and diagnosed with a hernia. She has had worsening pain since. CT with no mention of hernia or acute pathology of the left inguinal area, abdomen or hip HOWEVER, see below as discussed w/ radiology evening 03/24 and US hernia obtained for further evaluation given findings on examination -Prior requested records from [facility]/visit/imaging for further evaluation. Not yet available US obtained overnight 03/24 Impression w/ Small and nonreducible fat-containing LEFT groin hernia -- -Fat containing, no evidence for bowel fluid within the hernia. Lactic 1.1 on admission, no leukocytosis/fevers General surgery, Dr Red. s/p Open Left Inguinal Hernia Repair with Mesh(Left) - Pollo Red, DO on 03/26. EBL 5cc Pain control/bowel regimen/PT/OT consults Bowel regimen (+BM 03/26) SCDs ordered for DVT proph for now, ambulation encouraged Likely able to dc in AM on oral pain control but will monitor but if remains inpatient can add Lovenox tomorrow per Dr Red (2) Left inguinal pain: Plan: As above, On admit, doppler negative for DVT prior to eval as well as hip/pelvis xrays 2nd to inguinal hernia, s/p repair w/ significant improvement. (3) Hyponatremia: Plan: Na 131 on admission, ?unclear if pain related. TSH wnl. IVF provided and normalized on repeat (4) Hyperglycemia: Plan: Glucose 345 on admission, given glargine x1. UA w/ 3+ glucose Last A1c 9 in October --> repeat 11.7. She did admit BSGs running high at home recently/wasnt' taking meds as supposed to while not feeling well DM educator also consulted BSG AC/HS while inpatient w/ SSI however pharmacy consulted for glycemic management. Appreciate assistance POC last 184 and monitoring Will need f/u with PCP and likely increased insulin at dc but will monitor needs while inpatient (5) Diabetes: Plan: Repeat A1c worse at 11.7 -- as above, hadn't been taking meds as supposed to Glycemic consulted as above, DM educator. Outpt f/u PCP (6) JOYCE (generalized anxiety disorder): Plan: Chronic. Stable Continue Sertraline and Trazodone (7) GERD with esophagitis: Plan: Chronic. Stable Continue Protonix 40mg po BID (8) Hypertension: Plan: Chronic. Controlled. Presently 102/66 post-op Continued on metoprolol, will hold losartan for AM Monitor Plan continued inpatient stay but likely able to dc in AM on PO pain control Admission and Anticipated Discharge Date Admission Date: March 24, 2023 Supervising Physician Co-Signing Physician Notes The patient was not seen by me. The chart was reviewed. Case discussed with HUMZA Guo. Agree with assessment and plan Subjective Eval around 11, back from surgery. Had a couple crackers, pain improved. Had small bowel movement , incision looks good. No fever/chills, chest pain, shortness of breath. Discussed continued pain control/monitoring overnight but expect if pain much improved/stable could potentially discharge tomorrow on oral agents but will monitor/adjust as needed. Questions/concerns addressed. Family updated at bedside. Physical Exam 2 Physical Exam: General: WD/WN female sitting up in bed post-op, appears MUCH more comfortable. family at bedside head atraumatic, normocephalic, mmm, trachea midline resp even/unlabored, no w/c/r, on room air CV; RRR, no significant mrg, no pitting edema/calf tenderness GI: +BS, soft (reported BM this morning) L groin incision looks good, appropriately tender surgical glue, no significant redness/warmth/drainage MSK/Neuro: nonfocal, improvement in mobility/ROM to her hip since hernia repair Psych: AOx3, cooperative with exam Results & Data Results & Data Vital Signs (Past 12 Hours) Vital Signs Temp Pulse Resp BP Pulse Ox O2 Del Method 03/26/23 07:09 36.8 C 58 L 16 128/70 96 Room Air 03/25/23 21:00 Room Air 03/25/23 20:31 37.5 C 93 H 16 144/76 H 94 Room Air Laboratory Results 03/26/23 06:09 03/26/23 06:09 PG Care Time/CCT Total # of Minutes Spent Total Time Spent with Patient: Total time spent is greater than 50% in coordination of care (as documented) at patient's floor/unit and/or counseling patient: Coding Level of Care Code 44709 SUB INP/OBS CARE 2/35MIN Diagnoses Inguinal hernia K40.90 Left inguinal pain R10.32 Hyponatremia E87.1 Hyperglycemia R73.9 Diabetes E11.9 JOYCE (generalized anxiety disorder) F41.1 GERD with esophagitis K21.00 Hypertension I10
--- NOTE | 2023-03-26 08:15 | Anesthesiology Consultation ---
Date of Service March 26, 2023 Assessment & Plan Chart Review Chart Review: Acceptable Risk for Surgery and Patient NOT seen in Pre Admission Testing Consults Requested none ASA ASA3 Proposed Anesthesia Anesthesia Type: General Risk / Benefits Reviewed With: PT / POA / Parent / Guardian, Accepts Plan and Informed Consent Obtained History Surgery Operation Date: 03/26/23 07:30 Proposed Procedures p Open Right Inguinal Hernia Repair with Mesh - Pollo Red, DO Height/Weight Height: 5 ft 7 in Weight: 80.603 kg Allergies Allergy/AdvReac Type Severity Reaction Status Date / Time Iodinated Contrast Media Allergy Severe STOP Verified 02/05/23 14:59 BREATHING bupropion [From Wellbutrin] Allergy Mild Hallucinati Verified 02/05/23 14:59 ng divalproex sodium Allergy Mild Vomiting Verified 02/05/23 14:59 [From Depakote] ketorolac [From Toradol] Allergy Mild can not Verified 02/05/23 14:59 void metronidazole Allergy Mild VOMITS Verified 02/05/23 14:59 nitrofurantoin Allergy Mild VOMITS Verified 02/05/23 14:59 pregabalin [From Lyrica] Allergy Mild Hallucinati Verified 02/05/23 14:59 ng strawberry Allergy Mild Hives Verified 02/05/23 14:59 tramadol Allergy Mild can not Verified 02/05/23 14:59 void ziprasidone [From Geodon] Allergy Mild Vomiting Verified 02/05/23 14:59 Medications Home Medications Medication Instructions Recorded Confirmed Last Taken insulin glargine 100 unit/mL (3 10 unit subcut BID 10/30/22 03/24/23 12/11/22 mL) subcutaneous pen (Lantus Solostar U-100 Insulin) insulin lispro 100 unit/mL 1 sliding scale dose subcut TIDM 10/30/22 03/24/23 12/11/22 subcutaneous pen (Humalog KwikPen (U-100) Insulin) losartan 25 mg tablet 25 mg PO QAM 10/30/22 03/24/23 12/11/22 trazodone 100 mg tablet 100 mg PO HS 10/30/22 03/24/23 12/11/22 baclofen 10 mg tablet 10 mg PO TID 90 days #270 tabs 11/14/22 03/24/23 12/11/22 loperamide 2 mg capsule 2 mg PO BID PRN Diarrhea 12/04/22 03/24/23 12/11/22 sertraline 50 mg tablet 150 mg PO HS 12/04/22 03/24/23 12/11/22 pantoprazole 40 mg tablet,delayed 40 mg PO BID #60 tabs 12/12/22 03/24/23 Unknown release gabapentin 800 mg tablet 800 mg PO QID #120 tabs 01/25/23 03/24/23 Unknown metoprolol succinate 25 mg 37.5 mg (1.5 x 25 mg) PO HS #45 01/25/23 03/24/23 Unknown tablet,extended release 24 hr tabs ondansetron 4 mg disintegrating 4 mg translingual Q8H PRN Nausea 01/25/23 03/24/23 Unknown tablet #60 tabs oxycodone-acetaminophen 7.5 mg-325 1 tab PO Q8H PRN Pain 30 days #90 03/01/23 03/24/23 Unknown mg tablet tabs Active Medications Generic Name Dose Route Start Last Admin Trade Name Khang PRN Reason Stop Dose Admin Acetaminophen 1,000 mg 03/24/23 08:50 03/26/23 01:26 Acetaminophen 500 Mg Tab PO 04/23/23 08:49 Not Given Q8H MOOSE Baclofen 10 mg 03/24/23 09:00 03/25/23 20:27 Baclofen 10 Mg Tab PO 04/23/23 08:59 10 mg TID MOOSE Administration Cyclobenzaprine HCl 5 mg 03/24/23 08:50 03/25/23 08:23 Cyclobenzaprine Hcl 5 Mg Tab PO 04/23/23 08:49 5 mg TID PRN Administration muscle spasm Diclofenac Sodium 4 gm 03/25/23 17:00 03/25/23 20:25 Diclofenac Sod 1% Gel 100 Gm Tube EXT 04/24/23 16:59 4 gm QID MOOSE Administration Protocol Docusate Sodium 100 mg 03/25/23 21:00 03/25/23 20:26 Docusate Sodium 100 Mg Cap PO 04/24/23 20:59 100 mg BID MOOSE Administration Gabapentin 800 mg 03/24/23 09:00 03/25/23 20:25 Gabapentin 800 Mg Tab PO 04/23/23 08:59 800 mg QID MOOSE Administration Hydromorphone HCl 0.5 mg 03/25/23 16:42 03/26/23 06:14 Hydromorphone Inj 0.5 Mg/0.5 Ml Syr IV 04/07/23 08:49 0.5 mg Q2H PRN Administration Pain (6,7,8,9,10) Potassium Chloride/Sodium Chloride 20 meq in 1,000 mls @ 75 mls/hr 03/25/23 23:59 03/26/23 02:15 Normal Saline W/20 Meq Kcl IV 04/24/23 23:58 75 mls/hr .[id number] MOOSE Infusion Protocol Insulin Aspart 0 units 03/26/23 06:00 03/26/23 06:15 Insulin Aspart Per Unit Charge SC 04/25/23 05:59 4 units Q6 MOOSE Administration Protocol Losartan Potassium 25 mg 03/24/23 09:00 03/25/23 08:23 Losartan Potassium 25 Mg Tab PO 04/23/23 08:59 25 mg QAM MOOSE Administration Metoprolol Succinate 37.5 mg 03/24/23 21:00 03/25/23 20:30 Metoprolol Succ 25mg Ext Rel Tab PO 04/23/23 20:59 37.5 mg HS MOOSE Administration Oxycodone HCl 5 mg 03/24/23 12:54 03/25/23 10:33 Oxycodone Hcl Ir 5 Mg Tab (Immediate Release) PO 04/07/23 12:53 5 mg Q4H PRN Administration moderate to severe pain Pantoprazole Sodium 40 mg 03/24/23 09:00 03/25/23 20:26 Pantoprazole 40 Mg Tab PO 04/23/23 08:59 40 mg BID MOOSE Administration Sennosides 17.2 mg 03/25/23 16:45 03/25/23 17:19 Senna 8.6 Mg Tab PO 04/24/23 16:44 Not Given QAM MOOSE Sertraline HCl 150 mg 03/24/23 21:00 03/25/23 20:26 Sertraline Hcl 50 Mg Tablet PO 04/23/23 20:59 150 mg HS MOOSE Administration Trazodone HCl 100 mg 03/24/23 21:00 03/25/23 22:13 Trazodone Hcl 100 Mg Tab PO 04/23/23 20:59 100 mg HS MOOSE Administration NPO Date Last Intake of Fluids: 03/25/23 Time Last Intake of Fluids: 22:00 Date Last Intake of Solids: 03/25/23 Time Last Intake of Solids: 21:00 Past Medical History Medical History Chronic back pain History of chest pain Fibromyalgia History of pulmonary embolism roughly 15yrs ago--unknown cause--no blood thinners COVID-19 11/08/2022 @ [facility]--head cold symptoms, slight cough--no symptoms now IBS (irritable bowel syndrome) TIA (transient ischemic attack) "more than 15yrs ago"--unknown cause, no deficits--no neurologist Hypertension Hyperlipidemia GERD with esophagitis Diabetes IDDM Depression CAD (coronary artery disease) Exercise / Class Metabolic Activity II 4-5 Yardwork/Stairs/Walk up hill Past Family History Family History Mother Respiratory arrest Coronary heart disease Hypertension Father Cancer Sister Diabetes Multiple sclerosis Other No family history of adverse response to anesthesia Past Surgical History Surgical History History of fusion of cervical spine normal ROM History of repair of right rotator cuff History of bladder suspension procedure History of laparoscopy lysis of adhesions removal History of esophagogastroduodenoscopy (EGD) History of colonoscopy History of tooth extraction all teeth removed Hx of cholecystectomy H/O tubal ligation H/O: hysterectomy bhupendra bso H/O hernia repair x2 S/P coronary artery stent placement 5yrs ago @ [facility]--1 stent total H/O cardiac catheterization x1 roughly 5 yrs ago @ [facility]--1 stent placed--follows with Dr. Moy Past Anesthesia History No Hx of Anesthesia Complications and No Family Hx of Anesthesia Complications History of PONV No Hx of PONV and No Hx of Motion Sickness Social History Smoking Status: Never smoker Do You Dip or Chew Tobacco: No Hx Alcohol Use: No Hx Substance Use: No substance use type: does not use Physical Exam Vital Signs Last Vital Signs Temp 36.8 C 03/26/23 07:09 Pulse 58 L 03/26/23 07:09 Resp 16 03/26/23 07:09 BP 128/70 03/26/23 07:09 Pulse Ox 96 03/26/23 07:09 O2 Del Method Room Air 03/26/23 07:09 ENMT Mouth: + edentulous Thyromental Distance: > or= 3.5 Finger Breadths Mallampati Class: II Neck normal visual inspection Respiratory normal respiratory effort Auscultation: lungs clear to auscultation bilaterally Cardiovascular Rate/Rhythm: regular rate and regular rhythm Psychiatric Orientation: alert Testing Laboratory Results 03/26/23 06:09 03/26/23 06:09 PT 10.8 Seconds (9.0-12.0) 03/26/23 06:09 INR 1.0 (0.9-1.1) 03/26/23 06:09 Hemoglobin A1c 11.7 % (4.5-5.6) H 03/25/23 08:02 Urine Color Yellow 03/24/23 Unknown Urine Appearance Clear (Clear) 03/24/23 Unknown Urine pH 6.0 (4.5-7.5) 03/24/23 Unknown Ur Specific [place] 1.033 (1.000-1.030) H 03/24/23 Unknown Urine Protein Negative (Negative) 03/24/23 Unknown Urine Glucose (UA) 3+ (Negative) H 03/24/23 Unknown Urine Ketones Negative (Negative) 03/24/23 Unknown Urine Nitrite Negative (Negative) 03/24/23 Unknown Ur Leukocyte Esterase Negative (Negative) 03/24/23 Unknown 03/26/23 03/25/23 05:52 20:22 POC Glucose 206 H 116 H
[2023-03-26] MEDS ORDERED: fentaNYL citrate PF 100 MCG/2 ML VIAL IV PRN (08:17)
[2023-03-26] MEDS ORDERED: ePHEDrine sulfate 50 MG/ML AMP IV PRN (08:17)
[2023-03-26] MEDS ORDERED: ATROPINE SULFATE 0.1 MG/ML 10ML SYR IV PRN (08:17)
[2023-03-26] MEDS ORDERED: ONDANSETRON INJ 2 MG/ML 2 ML VIAL IV PRN (08:17)
[2023-03-26] MEDS ORDERED: PROMETHAZINE HCL 6.25 MG in SODIUM CHLORIDE 0.9% 50 ML IV PRN (08:17)
[2023-03-26] MEDS ORDERED: ePHEDrine sulfate 50 MG/5 ML SYR ONE (08:33)
[2023-03-26] MEDS ORDERED: ONDANSETRON INJ 2 MG/ML 2 ML VIAL ONE (08:33)
[2023-03-26] MEDS ORDERED: SUGAMMADEX SODIUM 200 MG/2 ML VIAL IV ONE ×2 (09:08→09:25)
--- NOTE | 2023-03-26 09:33 | Operative Report ---
PG Post Operative Report Pre & Post Diagnosis Operation Date: 03/26/23 07:30 Pre-Op Diagnosis: Incarcerated Left Inguinal Hernia Post-Op Diagnosis: Incarcerated Left Inguinal Hernia I identified the patient and participated in the time-out.: Yes Procedure Operation Date: 03/26/23 07:30 Actual Procedures p Open Left Inguinal Hernia Repair with Mesh(Left) - Pollo Red DO Surgeon Pollo Red DO Chief Ii Dispatcher n/a Estimated Blood Loss 5 Findings Consistent with Post-Op Diagnosis Specimens none Description of Procedure After informed consent was obtained the patient was taken the operating room and placed in supine position. After successful placement of the laryngeal mask airway the groin was shaved and sterilely prepped and draped in usual fashion. An inguinal incision was made with a 15 blade scalpel and carried down through the soft tissue using electrocautery. The external oblique aponeurosis was skeletonized. A fresh blade was used to make an incision and then Metzenbaum scissors were used to extend this distally through the external ring as well as for several centimeters proximally. Once in the inguinal canal I used blunt finger dissection to free up the round ligament. It was very atrophic. I therefore divided the round ligament. This exposed an indirect hernia defect and sac. I dissected this back to its neck. I reduced it into the abdominal cavity. There is a very discrete circular hernia defect. I used a medium polypropylene plug and placed it into the defect. It was secured laterally to the shelving portion of Poupart's ligament proximal and medially to the underlying muscle and distally to Francisco's ligament. We dissected this back to its neck and then dunked it back into the abdominal cavity. We then thoroughly irrigated the wound. I used a polypropylene mesh as an onlay. It was secured distally to Francisco's ligament, laterally along the shelving portion of Poupart's ligament and medially along the midline musculature. 0 Ethibond was used for the suturing. The mesh laid nice and flat and tension-free and did not impinge on the cord structures themselves. We thoroughly irrigated the wound. There was adequate hemostasis. I injected Marcaine around the edges of the mesh for postoperative analgesia. We then closed the external oblique aponeurosis with 2-0 Vicryl in a running fashion. Soft tissue was irrigated and closed in multiple layers using 3-0 Vicryl for the deep layers and 4-0 Monocryl for the skin. Some additional Marcaine was injected around the skin incision. We then used a skin glue as a dressing. The patient was awaken extubated and transferred to recovery in stable condition. I attest to the content of the Intraoperative Record and any orders documented therein. Any exceptions are noted below.
--- NOTE | 2023-03-26 09:45 | Anesthesiology Progress Note ---
Date of Service March 26, 2023 Anesthesia Post Procedure Vital Signs Vital Signs: Temp Pulse Resp BP Pulse Ox O2 Del Method 03/26/23 07:09 36.8 C 58 L 16 128/70 96 Room Air 03/25/23 21:00 Room Air 03/25/23 20:31 37.5 C 93 H 16 144/76 H 94 Room Air 03/25/23 16:08 36.6 C 105 H 20 134/76 96 Room Air Pain Intensity Left Abdomen: Pain Intensity: 10 Transfer of Care Handoff Completed per policy Notes Mental Status: alert / awake / arousable Patient Amnestic to Procedure: Yes Nausea / Vomiting: adequately controlled Pain: adequately controlled Airway Patency, RR, SpO2: stable & adequate BP & HR: stable & adequate Hydration State: stable & adequate Anesthetic Complications: no major complications apparent
[2023-03-26] MEDS: DICLOFENAC SOD 1% GEL 100 GM TUBE EXT SCH ×4 (10:41→20:15)
--- NOTE | 2023-03-26 10:43 | Anesthesiology Progress Note ---
Date of Service March 26, 2023 Anesthesia Post Procedure Vital Signs Vital Signs: Temp Pulse Pulse Resp BP Pulse Ox O2 Del Method 03/26/23 10:10 37.2 C 76 14 157/80 H 93 Room Air 03/26/23 10:00 77 21 164/80 H 92 Room Air 03/26/23 09:50 81 20 165/82 H 94 Room Air 03/26/23 09:40 75 15 174/85 H 96 Oxymask 03/26/23 09:34 36.3 C L 84 14 174/86 H 96 Oxymask 03/26/23 07:09 36.8 C 58 L 16 128/70 96 Room Air 03/25/23 21:00 Room Air 03/25/23 20:31 37.5 C 93 H 16 144/76 H 94 Room Air 03/25/23 16:08 36.6 C 105 H 20 134/76 96 Room Air O2 Flow Rate 03/26/23 10:10 03/26/23 10:00 03/26/23 09:50 03/26/23 09:40 4 03/26/23 09:34 6 03/26/23 07:09 03/25/23 21:00 03/25/23 20:31 03/25/23 16:08 Pain Intensity Left Abdomen: Pain Intensity: 2 Transfer of Care Handoff Completed per policy Notes Mental Status: alert / awake / arousable Patient Amnestic to Procedure: Yes Nausea / Vomiting: adequately controlled Pain: adequately controlled Airway Patency, RR, SpO2: stable & adequate BP & HR: stable & adequate Hydration State: stable & adequate Anesthetic Complications: no major complications apparent
[2023-03-26] MEDS ORDERED: LANTUS PER UNIT CHARGE SC ONE (10:45)
[2023-03-26] MEDS ORDERED: INSULIN ASPART PER UNIT CHARGE SC ONE (10:45)
[2023-03-26] MEDS: DOCUSATE SODIUM 100 MG CAP PO SCH ×2 (10:54→20:14)
[2023-03-26] MEDS: GABAPENTIN 800 MG TAB PO SCH ×4 (10:55→20:14)
[2023-03-26] MEDS: LOSARTAN POTASSIUM 25 MG TAB PO SCH (10:55)
[2023-03-26] MEDS: PANTOprazole 40 MG TAB PO SCH ×2 (10:55→20:14)
[2023-03-26] MEDS: BACLOFEN 10 MG TAB PO SCH ×3 (10:56→20:14)
[2023-03-26] MEDS: SENNA 8.6 MG TAB PO SCH (10:56)
[2023-03-26] MEDS: LANTUS PER UNIT CHARGE SC SCH ×2 (11:24→20:15)
[2023-03-26] MEDS: INSULIN ASPART PER UNIT CHARGE SC SCH ×3 (12:35→20:14)
[2023-03-26] MEDS: oxyCODONE HCL IR 5 MG TAB (IMMEDIATE RELEASE) PO PRN ×2 (12:45→22:56)
[2023-03-26] MEDS ORDERED: HYDROmorphone INJ 1 MG/ML SYRINGE IV STA (15:47)
[2023-03-26] MEDS: METOPROLOL SUCC 25MG EXT REL TAB PO SCH (20:14)
[2023-03-26] MEDS: SERTRALINE HCL 50 MG TABLET PO SCH (20:14)
[2023-03-26] MEDS: traZODone HCL 100 MG TAB PO SCH (20:14)
[2023-03-27] MEDS: HYDROmorphone INJ 0.5 MG/0.5 ML SYR IV PRN ×4 (00:58→15:13)
[2023-03-27] MEDS: NSS + 20MEQ KCL 20 MEQ/1,000 ML BAG IV SCH (02:56)
[2023-03-27] MEDS: oxyCODONE HCL IR 5 MG TAB (IMMEDIATE RELEASE) PO PRN ×4 (04:23→20:37)
--- NOTE | 2023-03-27 07:50 | Hospitalist Progress Note ---
Date of Service March 27, 2023 Assessment & Plan (1) Inguinal hernia: Plan: 62yo female presenting with left inguinal and hip pain. Patient seen at [facility] on 03/17 and diagnosed with a hernia. She has had worsening pain since. CT with no mention of hernia or acute pathology of the left inguinal area, abdomen or hip HOWEVER, see below as discussed w/ radiology evening 03/24 and US hernia obtained for further evaluation given findings on examination -Prior requested records from [facility]/visit/imaging for further evaluation. Not yet available US obtained overnight 03/24 Impression w/ Small and nonreducible fat-containing LEFT groin hernia -- -Fat containing, no evidence for bowel fluid within the hernia. Lactic 1.1 on admission, no leukocytosis/fevers General surgery, Dr Red. s/p Open Left Inguinal Hernia Repair with Mesh(Left) with Pollo Red, DO on 03/26. EBL 5cc Pain control/bowel regimen Bowel regimen (+BM 03/26) SCDs ordered for DVT proph for now, ambulation encouraged. Can add Lovenox SQ for this evening as remaining inpatient per Dr Red Did have +temp reported 38C overnight, RN not aware this morning. Did have some choking w/ eggs this morning but no SOB/sputum production. CXR w/ atelectasis. Incentive spirometer encouraged Labs w/ mag 1.6, IV replacement ordered. WBC wnl. Na 133, Ch 97. 500cc NSS for some mild dehydration on exam Did add repeat UA given reported incontinence issues this morning, f/u ua/cx PT/OT consulted given issues w/ ambulation Monitor for any further fevers but suspect 2nd to atelectasis post-op Possible dc tomorrow pending therapy evaluations/pain control. (2) Left inguinal pain: Plan: As above, improved since surgery but still w/ ongoing pain control needs Doppler negative for DVT prior to eval as well as hip/pelvis xrays (3) Hyponatremia: Plan: Na 131 on admission, ?unclear if pain related. IVF provided and normalized on repeat but did appear slightly dehydrated this morning and repeat 500cc NSS ordered. TSH wnl (4) Hyperglycemia: Plan: Glucose 345 on admission, given glargine x1. UA w/ 3+ glucose A1c 9--> 11.7, had not been taking insulin at home regularly this past weeks due to not feeling well, suspect noncompliance Continued elevations, pharmacy consulted for glycemic control w/ improvement, DM educator also consulted Will need f/u PCP but likely increased insulin needs but can see what needs are/adjust prior to discharge (5) Diabetes: Plan: Repeat A1c worse at 11.7 -- as above, hadn't been taking meds as supposed to Glycemic consulted as above, DM educator. Outpt f/u PCP (6) JOYCE (generalized anxiety disorder): Plan: Chronic. Stable Continue Sertraline and Trazodone (7) GERD with esophagitis: Plan: Chronic. Stable Continue Protonix 40mg po BID (8) Hypertension: Plan: Chronic. Controlled. 102/66 post-op, losartan placed on hold for this morning and renal function stable/BP 159/83 and resumed Monitor Plan continued inpatient stay, PT/OT evals and pain control. Monitor for any further fevers/continued incentive spirometer and possible dc tomorrow on PO pain control Admission and Anticipated Discharge Date Admission Date: March 25, 2023 Supervising Physician Co-Signing Physician Notes PA Supervision Note: I did not personally see or examine the patient today, but I verified all mcknight points of HUMZA Zaidi's assessment and plan with the following exceptions/additions: None Subjective Eval this morning, having to use restroom, assisted. Painful/difficulty w/ ambulation. Discussed walker for short term (she notes she has one at home). Pain still significant but stable w/ ordered medications. Unclear if temp overnight accurate but patient did report feeling a little warm. No CP/SOB but +cough however she notes she had just completed eating breakfast and had a little choking with the eggs. Discussed checking CXR/continue use of incentive spirometer. Therapy evaluations to be undertaken. Possible discharge tomorrow if labs stable/pain improved. DId have some urinary incontinence, will check UA/cx if indicated. Questions/concerns addressed at this time. Physical Exam Physical Exam: General: WD/WN female assisted to bathroom, pain to groin w/ ambulation head atraumatic normocephalic, mm slightly dry, trachea midline resp even/unlabored, slightly diminished in the bases with associated bibasilar crackles, on room air cv; rrr, no significant mrg, no pitting edema/calf tenderness gi: +bs, soft/slight distension inguinal hernia incision dressing c/d/i, surgical glue in place, slightly pink but no surrounding cellulitis/drainage gu: no costa Msk/neuro; ambulating to bathroom, no focal loss of strength but pain w/ ambulation to her groin psych: aox3, cooperative with exam Results & Data Results & Data Vital Signs (Past 12 Hours) Vital Signs Temp Pulse Resp BP Pulse Ox O2 Del Method O2 Flow Rate 03/27/23 04:08 38 C H 88 20 161/75 H 93 Room Air 03/27/23 00:21 37.2 C 92 H 18 156/82 H 94 Nasal Cannula 2 03/26/23 20:15 Room Air Laboratory Results Chest X-Ray 03/27/23 07:46 SINGLE VIEW CHEST CLINICAL HISTORY: Fever FINDINGS: An AP, portable, upright chest radiograph is compared to study dated 01/24/2023. Surgical clips project over the left lower neck. The cardiomediastinal silhouette is unremarkable. There is mild bibasilar atelectasis. The lungs and pleural spaces are otherwise clear. No pneumothorax is seen. The skeletal structures are osteopenic. The bony thorax is grossly intact. Fusion hardware is noted in the lower cervical spine. IMPRESSION: No active disease in the chest. ACT 112: Negative or not required by law. Electronically signed by: Charly Peterson M.D. 03/27/2023 9:42 AM PG Care Time/CCT Total # of Minutes Spent Total Time Spent with Patient: Total time spent is greater than 50% in coordination of care (as documented) at patient's floor/unit and/or counseling patient: Coding Level of Care Code 73018 SUB INP/OBS CARE 3/50MIN Diagnoses Inguinal hernia K40.90 Left inguinal pain R10.32 Hyponatremia E87.1 Hyperglycemia R73.9 Diabetes E11.9 JOYCE (generalized anxiety disorder) F41.1 GERD with esophagitis K21.00 Hypertension I10
[2023-03-27] MEDS: SENNA 8.6 MG TAB PO SCH (07:55)
[2023-03-27] MEDS: DICLOFENAC SOD 1% GEL 100 GM TUBE EXT SCH ×4 (07:56→20:52)
[2023-03-27] MEDS: DOCUSATE SODIUM 100 MG CAP PO SCH ×2 (07:56→20:50)
[2023-03-27] MEDS: GABAPENTIN 800 MG TAB PO SCH ×4 (07:58→20:50)
[2023-03-27] MEDS: BACLOFEN 10 MG TAB PO SCH ×3 (07:58→20:50)
[2023-03-27] MEDS: PANTOprazole 40 MG TAB PO SCH ×2 (07:59→20:50)
[2023-03-27] MEDS: ACETAMINOPHEN 500 MG TAB PO SCH ×3 (08:00→21:27)
[2023-03-27 08:42] LABS: Hematocrit (blood only) 36.6 % (37.0-47.0); Hemoglobin 12.9 g/dl (12.0-16.0); Mean Corpuscular Hemoglobin 32.5 pg (25.0-34.0); Mean Corpuscular Hgb Conc 35.2 g/dL (32.0-36.0); Mean Corpuscular Volume 92.2 fL (80.0-100.0); Mean Platelet Volume 10.1 fL (9.4-12.4); Platelet Count 117 K/uL (130-400); RDW Standard Deviation 40.7 fL (36.4-46.3); Red Blood Count 3.97 M/uL (4.20-5.40); White Blood Count 9.82 K/ul (4.8-10.8)
[2023-03-27] MEDS: LANTUS PER UNIT CHARGE SC SCH ×2 (08:44→20:51)
[2023-03-27] MEDS: INSULIN ASPART PER UNIT CHARGE SC SCH ×4 (08:44→20:52)
[2023-03-27 08:53] LABS: BUN Creatinine Ratio 18.6 (10-20); Calcium 9.2 mg/dl (8.6-10.3); Est GFR (African American) 107.6 ml/min; Est GFR (Non-African American) 92.9 ml/min; Potassium 4.2 mmol/L (3.5-5.1)
--- NOTE | 2023-03-27 09:43 | XRay Report ---
SINGLE VIEW CHEST CLINICAL HISTORY: Fever FINDINGS: An AP, portable, upright chest radiograph is compared to study dated 01/24/2023. Surgical cl ips project over the left lower neck. The cardiomediastinal silhouette is unremarkable. There is mild bibasilar atelectasis. The lungs and pleural spaces are otherwise clear. No pneumothorax is seen. Th e skeletal structures are osteopenic. The bony thorax is grossly intact. Fusion hardware is noted in the lower cervical spine. IMPRESSION: No active disease in the chest. ACT 112: Negative or not required by law. Electronically signed by: Charly Peterson M.D. 03/27/2023 9:42 AM
--- NOTE | 2023-03-27 10:22 | Surgery Progress Note ---
Date of Service March 27, 2023 Assessment & Plan (1) S/P left inguinal hernia repair: Plan: Doing as expected. The low-grade temp is likely atelectasis postop. From my standpoint she is doing as expected and she may be discharged at any time Admission and Anticipated Discharge Date Admission Date: March 25, 2023 Subjective Postoperative day 1 from a open left inguinal hernia repair. She is quite sore at the incision site but other than that is doing okay. Apparently had low- grade temp over the past 24 hours Physical Exam Physical Exam: Alert. No acute distress The incision is clean dry intact. No sign of infection Results & Data Vital Signs (Past 12 Hours) Vital Signs Temp Pulse Resp BP BP Pulse Ox O2 Del Method 03/27/23 08:30 Room Air 03/27/23 07:51 37.3 C 77 18 159/83 H 92 Room Air 03/27/23 04:08 38 C H 88 20 161/75 H 93 Room Air 03/27/23 00:21 37.2 C 92 H 18 156/82 H 94 Nasal Cannula O2 Flow Rate 03/27/23 08:30 03/27/23 07:51 03/27/23 04:08 03/27/23 00:21 2 PG Care Time/CCT Total # of Minutes Spent Total Time Spent with Patient: Total time spent is greater than 50% in coordination of care (as documented) at patient's floor/unit and/or counseling patient: Coding Level of Care Code 08735 Post Operative Follow-Up Diagnoses S/P left inguinal hernia repair Z98.890; Z87.19
[2023-03-27] MEDS: MAGNESIUM SULFATE / D5W 1 GM/100 ML BAG IV SCH ×2 (10:58→12:41)
[2023-03-27] MEDS ORDERED: SODIUM CHLORIDE 0.9% 500 ML IV SCH (11:00)
[2023-03-27 12:08] LABS: Appearance Urine Clear (Clear); Bilirubin Urine Negative (Negative); Blood Urine Negative (Negative); Color Urine Yellow; Glucose Urine UA 3+ (Negative); Ketones Urine Negative (Negative); Leukocyte Esterase Urine Negative (Negative); Nitrite Urine Negative (Negative); Protein Urine Negative (Negative); Specific Gravity Urine 1.021 (1.000-1.030); Urobilinogen Urine Negative (Negative); pH Urine 5.5 (4.5-7.5)
--- NOTE | 2023-03-27 13:09 | Pharmacy Report ---
Pharmacy Glycemic Short Note 2 - Date of Service March 27, 2023 - Glycemic Short BSG Results (Last 24 hours): 03/26/23 03/26/23 03/27/23 16:52 20:04 07:40 Glucose POC Glucose 221 H 180 H 255 H 03/27/23 03/27/23 07:58 11:50 Glucose 237 H POC Glucose 257 H OUTPATIENT ANTIDIABETIC REGIMEN: * Lantus 10 units SQ BID * HumaLog TID with meals ASSESSMENT: 03/27/23: * BSGs yesterday were [phone] mg/dl. Patient received 20 units basal and 24 units bolus insulin yesterday. * Fasting BSG today was 255 mg/dl. Basal dose increased to 20 units BID starting tonight. * Novolog parameters tightened this AM. 03/25/23: * 62 year old female scheduled for open left inguinal hernia repair with mesh tomorrow morning. NPO after midnight. * Hyperglycemic on 49 units of insulin/day yesterday, 20 units basal. * Give extra dose of basal now, tighten CF/CR at this time, will hold basal tomorrow morning until patient is evaluated by pharmacist in AM. PLAN FOR INPATIENT GLYCEMIC CONTROL: * Basal insulin * Lantus 10 units this AM. Increased to 20 units SQ BID * Bolus insulin * NovoLog per scale ACHS or Q6hrs while NPO * Goal Range: Low 110 mg/dL - High 140 mg/dL * Correction Factor: 20 mg/dL/unit * Nutritional / Prandial insulin per carb ratio of 1 unit per 6 grams CHO consumed
[2023-03-27] MEDS: SERTRALINE HCL 50 MG TABLET PO SCH (20:50)
[2023-03-27] MEDS: traZODone HCL 100 MG TAB PO SCH (20:50)
[2023-03-27] MEDS: METOPROLOL SUCC 25MG EXT REL TAB PO SCH (20:50)
[2023-03-28] MEDS: HYDROmorphone INJ 0.5 MG/0.5 ML SYR IV PRN ×2 (02:02→08:45)
[2023-03-28] MEDS: oxyCODONE HCL IR 5 MG TAB (IMMEDIATE RELEASE) PO PRN (06:10)
[2023-03-28] MEDS: INSULIN ASPART PER UNIT CHARGE SC SCH ×2 (08:42→12:10)
[2023-03-28] MEDS: ACETAMINOPHEN 500 MG TAB PO SCH (09:03)
[2023-03-28] MEDS: GABAPENTIN 800 MG TAB PO SCH ×2 (09:04→12:17)
[2023-03-28] MEDS: BACLOFEN 10 MG TAB PO SCH ×2 (09:05→13:14)
[2023-03-28] MEDS: PANTOprazole 40 MG TAB PO SCH (09:05)
[2023-03-28] MEDS: DICLOFENAC SOD 1% GEL 100 GM TUBE EXT SCH ×2 (09:06→12:16)
[2023-03-28] MEDS: SENNA 8.6 MG TAB PO SCH (09:06)
[2023-03-28] MEDS: DOCUSATE SODIUM 100 MG CAP PO SCH (09:14)
[2023-03-28] MEDS: LOSARTAN POTASSIUM 25 MG TAB PO SCH (09:14)
[2023-03-28] MEDS: LANTUS PER UNIT CHARGE SC SCH (09:15)
[2023-03-28] MEDS ORDERED: oxyCODONE HCL IR 5 MG TAB (IMMEDIATE RELEASE) PO PRN ×2 (11:42)
[2023-03-28 12:14] LABS: Basophils # (auto) 0.04 K/uL (0.00-0.20); Basophils % (auto) 0.5 %; Eosinophils # (auto) 0.28 K/uL (0.00-0.50); Eosinophils % (auto) 3.8 %; Hematocrit (blood only) 35.9 % (37.0-47.0); Hemoglobin 12.4 g/dl (12.0-16.0); Immature Granulocytes # (auto) 0.02 K/uL (0.01-0.20); Immature Granulocytes % (auto) 0.3 %; Lymphocytes # (auto) 1.18 K/uL (1.20-3.40); Lymphocytes % (auto) 15.8 %; Mean Corpuscular Hemoglobin 32.5 pg (25.0-34.0); Mean Corpuscular Hgb Conc 34.5 g/dL (32.0-36.0); Mean Platelet Volume 10.4 fL (9.4-12.4); Monocytes # (auto) 0.66 K/uL (0.11-0.59); Monocytes % (auto) 8.9 %; Neutrophils # (auto) 5.27 K/uL (1.40-6.50); Neutrophils % (auto) 70.7 %; Platelet Count 150 K/uL (130-400); RDW Coefficient of Variation 12.2 % (11.5-14.5); RDW Standard Deviation 42.4 fL (36.4-46.3); Red Blood Count 3.82 M/uL (4.20-5.40); White Blood Count 7.45 K/ul (4.8-10.8)
[2023-03-28 12:27] LABS: Adenovirus PCR Not Detected (NotDetected); Bordetella parapertussis PCR Not Detected (NotDetected); Bordetella pertussis PCR Not Detected (NotDetected); Chlamydia pneumoniae PCR Not Detected (NotDetected); Coronavirus 229E PCR Not Detected (NotDetected); Coronavirus CoV-2 (COVID19)PCR Not Detected (NotDetected); Coronavirus HKU1 PCR Not Detected (NotDetected); Coronavirus NL63 PCR Not Detected (NotDetected); Coronavirus OC43PCR Not Detected (NotDetected); Human Metapneumovirus PCR Not Detected (NotDetected); Influenza A PCR Not Detected (NotDetected); Influenza B PCR Not Detected (NotDetected); Mycoplasma pneumoniae PCR Not Detected (NotDetected); Parainfluenza Virus 1 PCR Not Detected (NotDetected); Parainfluenza Virus 2 PCR Not Detected (NotDetected); Parainfluenza Virus 3 PCR Not Detected (NotDetected); Parainfluenza Virus 4 PCR Not Detected (NotDetected); Respiratory Syncytial VirusPCR Not Detected (NotDetected); Rhinovirus/Enterovirus PCR Not Detected (NotDetected)
[2023-03-28 12:28] LABS: BUN Creatinine Ratio 23.9 (10-20); Calcium 9.3 mg/dl (8.6-10.3); Creatinine Clr Calc Pharmacy 89.7 ml/min; Est GFR (African American) 105.8 ml/min; Est GFR (Non-African American) 91.3 ml/min; Magnesium 1.9 mg/dl (1.7-2.4); Potassium 4.2 mmol/L (3.5-5.1)
--- NOTE | 2023-03-28 12:42 | Surgery Progress Note ---
Date of Service March 28, 2023 Assessment & Plan (1) Incarcerated left inguinal hernia: Plan: POD 2 open LIH repair Patient still having post operative site pain, taking oral and IV Denies SOB, CP, N/V. Having Bms Ordered oxycodone 5mg q4h for mild-moderate pain and oxycodone 10mg q4h for moderate- severe pain Patient reports she is unable to take Tylenol or ibuprofen Hopefully will get better control of pain with the oral meds Low grade temps again over night 99s denies feeling feverish or chills WBC 7 LIH site covered with dermabond no signs of infection noted Encourage ambulation and incentive spirometer Admission and Anticipated Discharge Date Admission Date: March 25, 2023 Subjective Patient still having post operative site pain Denies SOB, CP, N/V. Has been moving her bowels ok Review of Systems Constitutional: no fever (low grade temps 99) and no chills Respiratory: no dyspnea Cardiovascular: no chest pain Gastrointestinal: + abdominal pain (LLQ surgical site ); n o bloating, no nausea and no vomiting Musculoskeletal: no muscle weakness Integumentary: no rash Physical Exam Physical Exam: alert oriented Constitutional: well developed and cooperative; no acute distress ENMT: external ear and nose normal, oropharynx normal Neck: trachea midline, no thyromegaly Respiratory: normal respiratory effort and able to speak in complete sentences; no respiratory distress Cardiovascular: Rate/Rhythm: regular rate Gastrointestinal (Abdomen): Inspection/Auscultation: + abdominal surgical incision (LLQ); abdomen not distended Percussion/Palpation: + abdomen tender (LLQ) and abdomen soft; abdomen not rigid Results & Data Vital Signs (Past 12 Hours) Vital Signs Temp Pulse Resp BP Pulse Ox O2 Del Method 03/28/23 09:13 73 106/65 03/28/23 08:04 99.0 F 75 16 119/65 96 Room Air PG Care Time/CCT Total # of Minutes Spent Total Time Spent with Patient: Total time spent is greater than 50% in coordination of care (as documented) at patient's floor/unit and/or counseling patient: Coding Level of Care Code 80642 Post Operative Follow-Up Diagnoses Incarcerated left inguinal hernia K40.30
--- NOTE | 2023-03-28 13:11 | Discharge Summary ---
Discharge Summary Date of Service March 28, 2023 Notes For Next Care Provider Medication Changes From Visit Added Voltaren gel to lower back Admission HPI Per Admitting Provider Mercy Amador is a pleasant 62yo female with history of HTN, HLP, DM, GERD and CAD presenting with left groin pain. Patient was seen in the ER at [facility] on 03/17 with pain and swelling in the left groin. She was diagnosed with a hernia and discharged home. On 03/18 she didn't feel well. She continued to have severe pain in her left groin - pain is constant, stabbing with occasional worsening with walking or standing. She called her PCP with these complaints and was directed to the ER. She was using a heating pad without improvement. She gets some relief with sitting in a hot bath or sitting next to the hot pellet stove. She denies trauma, no falls. No knee pain. She reports normal bowel movements and flatus. No blood, diarrhea or constipation. No urinary complaints. No vaginal discharge. She has been having some nausea but no vomiting. She had a slightly elevated temperature on 03/19 to 100 and some chills but none since. Dilaudid 0.5mg IV Insulin 6u SQ Morphine 4mg IV + 4mg IV NSS x 1L Tylenol 1gm Principal Dx & Hospital Course #1 = Principal Diagnosis (1) Inguinal hernia: 62yo female presenting with left inguinal and hip pain. Patient seen at [facility] on 03/17 and diagnosed with a hernia. She has had worsening pain since. CT with no mention of hernia or acute pathology of the left inguinal area, abdomen or hip HOWEVER, US hernia obtained for further evaluation showed non-reducible left fat-containing inguinal hernia Venous doppler LLE negative, Lumbar spine xrays negative for acute, hip/pelvis xrays neg for acute Lactic acid 1.1 on admission, no leukocytosis/fevers General surgery, Dr Red now s/p Open Left Inguinal Hernia Repair with M es(Left) with Pollo Red DO on 03/26. EBL 5cc has chronic pain but is fairly well controlled and can return home on usual painmedicine hydrocodone /aPAP 7.5/325mg tid prn f/u Surgery as outpt is moving bowels, continue docusate, senna (2) Hyponatremia: pseudohyponatremia from hyperglycemia-corrects to normal when corrected for glucose (3) Hyperglycemia: g;ucose in 200s-300s consistently A1C 11.7%, uncontrolled had not been taking insulin at home regularly this past weeks due to not feeling well, suspect noncompliance. She also worries about going too low--> administrative office assistant saw her and adjusted Dexcom to alert her when goes to 90 so she feels less fearful about going to low Plan to increase Lantus to 15 units bid on discharge and continue Humalog SSI, close f/u with PCP (4) Fever: Had temp 38 on AM of 03/27 and 37.6 evening of 03/27, nothing since then UA neg for infection, CXR shows atelectasis, wound site appears good as per SUrgery, no signs of DVT on exam Checked Viral respiratory panel [employer] and negative, no URI symptos likely from atelectasis vs early viral syndrome as did have brief mild thrombocytopenia f/u with PCP if viral symptoms occur otherwise encouraged ICS, ok to dc to home (5) JOYCE (generalized anxiety disorder): Chronic. Stable Continue Sertraline and Trazodone (6) GERD with esophagitis: Chronic. Stable Continue Protonix 40mg po BID (7) Hypertension: Chronic. Controlled. continue losartan Discharge Exam Constitutional WD/WN, vitals as above Respiratory normal respiratory effort, lungs clear to auscultation Cardiovascular RRR, no murmur, no edema Gastrointestinal (Abdomen) Inspection/Auscultation: + abdomen abnormal to inspection (Left inguinal and LLQ incision dressing c/d/i) Percussion/Palpation: + abdomen tender (in LLQ without guarding or rebound) and abdomen soft Psychiatric A+Ox3, euthymic affect Updated Medication List Medication Instructions Recorded Confirmed Type insulin lispro 100 unit/mL 1 sliding scale dose subcut TIDM 10/30/22 03/24/23 History subcutaneous pen (Humalog KwikPen (U-100) Insulin) losartan 25 mg tablet 25 mg PO QAM 10/30/22 03/24/23 History trazodone 100 mg tablet 100 mg PO HS 10/30/22 03/24/23 History baclofen 10 mg tablet 10 mg PO TID 90 days #270 tabs 11/14/22 03/24/23 Rx loperamide 2 mg capsule 2 mg PO BID PRN Diarrhea 12/04/22 03/24/23 History sertraline 50 mg tablet 150 mg PO HS 12/04/22 03/24/23 History pantoprazole 40 mg tablet,delayed 40 mg PO BID #60 tabs 12/12/22 03/24/23 Rx release gabapentin 800 mg tablet 800 mg PO QID #120 tabs 01/25/23 03/24/23 Rx metoprolol succinate 25 mg 37.5 mg (1.5 x 25 mg) PO HS #45 01/25/23 03/24/23 Rx tablet,extended release 24 hr tabs ondansetron 4 mg disintegrating 4 mg translingual Q8H PRN Nausea 01/25/23 03/24/23 Rx tablet #60 tabs diclofenac sodium 1 % topical gel 4 g EXT QID #100 grams 03/28/23 Rx (Voltaren Arthritis Pain) docusate sodium 100 mg capsule 100 mg PO BID #60 caps 03/28/23 Rx insulin glargine 100 unit/mL (3 15 unit (0.15 mL) subcut BID #15 mL 03/28/23 Rx mL) subcutaneous pen (Lantus Solostar U-100 Insulin) oxycodone-acetaminophen 7.5 mg-325 1 tab PO Q8H PRN Pain 10 days #30 03/28/23 Rx mg tablet tabs sennosides 8.6 mg tablet (Senokot) 17.2 mg (2 x 8.6 mg) PO QAM #60 03/28/23 Rx tabs Hospital Stay Data Consultations 03/24/23 04:02 ED Decision to Admit Stat 03/24/23 12:54 HIM [Consult Health Information Management] Routine 03/25/23 08:37 Consult General Surgery Routine Procedures Performed Operation Date: 03/26/23 07:30 Actual Procedures p Open Left Inguinal Hernia Repair with Mesh(Left) - Pollo Red, Diagnostic Imagining Performed 03/23/23 23:50 CT abd pelvis wo con Stat 03/24/23 09:22 US venous doppler LE LT Urgent 03/24/23 15:44 US Hernia [US abdomen ltd hernia] Routine Pending Results Patient Have Any Pending Studies at Discharge: No Discharge Instructions Given to Patient (Per Discharging Provider) Surgery instructions: ice to incision for first 4 days Ok to shower. Glue will fall off on its own. You can take your usual pain medication for your pain from surgery. I will call in a small supply until you can get in to see your PCP for a monthly refill. Your blood sugars are out of control and your Lantus will be increased to 15 units twice a day. Please follow your blood sugars closely at home and follow up with your PCP regarding this as well. Total Time Total Time Spent Total Time Spent (In Minutes): 35 min Coding Level of Care Code 14404 INP/OBS DISCH >30 MIN Diagnoses Inguinal hernia K40.90 Hyponatremia E87.1 Hyperglycemia R73.9 Fever R50.9 JOYCE (generalized anxiety disorder) F41.1 GERD with esophagitis K21.00 Hypertension I10
== END 2023-03-28 14:54 | disposition home or self-care (01) | DRG 351 ==
LOC: SUATTDRO → ED 15:06 → 3N 15:06 → SUATTDRO 03-24 04:48 → 3N 03-24 06:07

== ENCOUNTER 2023-06-27 19:14 | Inpatient (IN) ==
[2023-06-27 19:56] LABS: iSTAT Creatinine 0.7 mg/dl (0.6-1.3); iSTAT Ionized Calcium 1.26 mmol/l (1.12-1.32); iSTAT Potassium 4.5 mmol/L (3.3-5.0)
[2023-06-27 19:59] LABS: Basophils # (auto) 0.07 K/uL (0.00-0.20); Basophils % (auto) 0.8 %; Eosinophils # (auto) 0.18 K/uL (0.00-0.50); Eosinophils % (auto) 1.9 %; Hematocrit (blood only) 39.4 % (37.0-47.0); Hemoglobin 14.6 g/dl (12.0-16.0); Immature Granulocytes # (auto) 0.07 K/uL (0.01-0.20); Immature Granulocytes % (auto) 0.8 %; Lymphocytes # (auto) 2.59 K/uL (1.20-3.40); Lymphocytes % (auto) 27.8 %; Mean Corpuscular Hemoglobin 31.3 pg (25.0-34.0); Mean Corpuscular Hgb Conc 37.1 g/dL (32.0-36.0); Mean Corpuscular Volume 84.5 fL (80.0-100.0); Mean Platelet Volume 10.6 fL (9.4-12.4); Monocytes # (auto) 0.78 K/uL (0.11-0.59); Monocytes % (auto) 8.4 %; Neutrophils # (auto) 5.64 K/uL (1.40-6.50); Neutrophils % (auto) 60.3 %; Platelet Count 211 K/uL (130-400); RDW Coefficient of Variation 12.2 % (11.5-14.5); RDW Standard Deviation 37.1 fL (36.4-46.3); Red Blood Count 4.66 M/uL (4.20-5.40); White Blood Count 9.33 K/ul (4.8-10.8)
[2023-06-27] MEDS: SODIUM CHLORIDE 0.9% 1,000 ML IV ONE ×2 (20:04→22:05)
[2023-06-27] MEDS: MoRPHine SULFATE 4 MG/ML 1 ML CARP\\VIAL IV STA ×2 (20:04→22:05)
[2023-06-27] MEDS: ONDANSETRON INJ 2 MG/ML 2 ML VIAL IV STA (20:05)
[2023-06-27 20:17] LABS: Appearance Urine Clear (Clear); Bilirubin Urine Negative (Negative); Blood Urine Negative (Negative); Color Urine Yellow; Glucose Urine UA 3+ (Negative); Ketones Urine Negative (Negative); Leukocyte Esterase Urine Negative (Negative); Nitrite Urine Negative (Negative); Protein Urine Negative (Negative); Specific Gravity Urine 1.037 (1.000-1.030); Urobilinogen Urine Negative (Negative)
[2023-06-27 20:18] LABS: Alanine Aminotransferase 17 U/L (7-52); Albumin Globulin Ratio 1.3 (0.9-2); Albumin Level 4.3 gm/dl (3.4-5.0); Alkaline Phosphatase 137 U/L (34-104); Anion Gap 10 (3-11); Aspartate Aminotransferase 15 U/L (13-39); BUN Creatinine Ratio 23.4 (10-20); Bilirubin,Total 0.5 mg/dl (0.2-1.0); Blood Urea Nitrogen 22 mg/dl (6-23); Calcium 9.9 mg/dl (8.6-10.3); Carbon Dioxide 29 mmol/L (21-32); Chloride 84 mmol/L (98-107); Est GFR (African American) 75.4 ml/min; Globulin 3.2 gm/dl (2.5-4.0); Glucose 715 mg/dl (70-99(Fasting)); Lipase 318 U/L (11-82); Potassium 4.4 mmol/L (3.5-5.1); Sodium 123 mmol/L (136-145); Total Protein 7.5 gm/dl (6.0-8.3)
[2023-06-27 20:25] LABS: INR 0.9 (0.9-1.1); Partial Thromboplastin Ratio 0.7; Partial Thromboplastin Time 21 Seconds (21-31)
[2023-06-27 20:31] LABS: Base Excess VBG 6.6 mEq/L; HCO3 VBG 32 mmol/L; Oxygen Saturation VBG 76.5 %; PCO2 VBG 47 mmHg (38-50); PO2 VBG 44 mmHg; pH VBG 7.44 (7.36-7.41)
[2023-06-27] MEDS ORDERED: DEXTROSE 50% 50 ML SYRINGE IV PRN (20:53)
[2023-06-27] MEDS ORDERED: GLUCOSE 40% GEL 15 GM TUBE PO PRN (20:53)
[2023-06-27] MEDS ORDERED: GLUCAGON FOR INJ 1 MG VIAL SQ PRN (20:53)
[2023-06-27] MEDS ORDERED: GLUCOSE 10 TAB/TUBE PO PRN (20:53)
[2023-06-27] MEDS ORDERED: CARBOHYDRATES FOR HYPOGLYCEMIA PO PRN (20:53)
[2023-06-27] MEDS ORDERED: INSULIN REGULAR 250 UNITS in SODIUM CHLORIDE 0.9% 247.5 ML IV SCH (21:00)
[2023-06-27] MEDS: INSULIN ASPART PER UNIT CHARGE SC SCH (21:38)
[2023-06-27] MEDS: STAT IV Infusion **Titration per Protocol STA (21:38)
[2023-06-27] MEDS: INSULIN REGULAR 250 UNITS in SODIUM CHLORIDE 0.9% 247.5 ML IV SCH (21:40)
--- NOTE | 2023-06-27 22:44 | History & Physical Report ---
Date of Service June 27, 2023 Assessment & Plan (1) Pancreatitis: (2) Hyperglycemia: (3) Hypertriglyceridemia: (4) Poorly controlled type 2 diabetes mellitus: (5) Neuropathy: (6) JOYCE (generalized anxiety disorder): (7) Depression: (8) Fibromyalgia: (9) CAD (coronary artery disease): (10) GERD with esophagitis: (11) Hyperlipidemia: (12) Hypertension: (13) IBS (irritable bowel syndrome): Plan Summary: Mercy is a 62F w/ PMH Of poorly controlled T2DM, pancreatitis, migraines, neuropathy, JOYCE, depression, fibromyalgia, CAD, GERD, HLD, HTN, and IBS who presents for evaluation of hyperglycemia of outpatient labs. Patient now being admitted for hyperglycemia & hypertriglyceridemia induced pancreatitis. ED Course: 2L NSS, Insulin Drip, Zofran, Morphine Severe Hypertriglyceridemia | Pancreatitis * Labs indicating TG level of 2068 * Patient denies tobacco or alcohol use for > 15 years * Physical examination concerning for acute pancreatitis, patient with prior history * Continue insulin drip to bring down TG levels * Patient hyperglycemic on presentation, will likely require D5 to support glucose levels while treating hyperTG * Plan to start D5/NSS/K via IVF when BSG <250 * Patient NPO * Tylenol IV PRN for pain 1-5, Morphine 2 mg for pain 5-10, Morphine 4 mg for breakthrough pain * Plan addition of Tricor (fenofibrate) when patient off NPO given HyperTG acute pancreatitis presentation Severe Hyperglycemia | Uncontrolled DM2 * Patient's A1c rising, was 11, now 16.6 on presentation, BSG 898 on arrival * Patient without anion gap or acidosis, K 4.5 on presentation * S/p 2 L NSS, continue w/ NSS + K IVF * Insulin drip ongoing * Switch to D5 + NSS + KCl 20 when BSG < 250 * Would not drive BSG lower than 250s tonight given that sugars have likely been high for a while (no anion gap or acidosis on presenting labs, patient compensated to hyperglycemia), driving glucose levels down further could precipitate cerebral edema, monitor closely Chronic Conditions: * CAD: Continue Metoprolol * GERD: Continue PPI * HLD: No home statin * HTN: Continue Losartan * IBS: Supportive measures inpatient * Fibromyalgia/Chronic Pain: Continue home pain management regimen * Anxiety/Depression: continue home Sertraline Code Status:Full Diet:NPO IVF:Insulin, NSS w/ K followed by D5 NSS w/ K when BSG < 250 DVT PPx:SCDs, patient ambulating to bathroom frequently CM: None Dispo: PCU/Tele History of Present Illness Chief Complaint: Hyperglycemia Primary Care Provider: DO Mercy Reeder is a 62F w/ PMH Of poorly controlled T2DM, pancreatitis, migraines, neuropathy, JOYCE, depression, fibromyalgia, CAD, GERD, HLD, HTN, and IBS who presents for evaluation of hyperglycemia of outpatient labs. Patient notes that for the lat 10 days her abdomen has been very painful and feels like its going to 'pop'. She localizes her discomfort to the epigastrium. She notes that today she went to her PCP because she has had increasing polyuria and polydipsia over the last 2 weeks. She notes that she wears a Dexcom (and has for the last year) and that she thought it may not be working, so she changed it, but her home Dexcom continued to read BSGs of 120-180s at home. Patient states that she uses 18-25u of short acting insulin before meals and 15 units of long acting twice daily. Over the last 2 days, patient notes she has had increasing nausea and emesis and has been using Zofran at home to control her symptoms. She has felt increasingly fatigued w/o lightheadedness or dizziness. She denies dysuria, but notes worsening diarrhea. She denies chest pain, dypnea, or LE edema. She notes that she is in need of back surgery and is in alot of pain, but is unable to proceed until her A1c is <8. Patient denies any recent changes in her diet or medications. She notes an anaphylactic reaction to IV contrast. Allergies Allergy/AdvReac Type Severity Reaction Status Date / Time Iodinated Contrast Media Allergy Severe STOP Verified 04/04/23 08:49 BREATHING bupropion [From Wellbutrin] Allergy Mild Hallucinati Verified 04/04/23 08:49 ng divalproex sodium Allergy Mild Vomiting Verified 04/04/23 08:49 [From Depakote] ketorolac [From Toradol] Allergy Mild can not Verified 04/04/23 08:49 void metronidazole Allergy Mild VOMITS Verified 04/04/23 08:49 nitrofurantoin Allergy Mild VOMITS Verified 04/04/23 08:49 pregabalin [From Lyrica] Allergy Mild Hallucinati Verified 04/04/23 08:49 ng strawberry Allergy Mild Hives Verified 04/04/23 08:49 tramadol Allergy Mild can not Verified 04/04/23 08:49 void ziprasidone [From Geodon] Allergy Mild Vomiting Verified 04/04/23 08:49 Home Medications Medication Instructions Recorded Confirmed Type insulin lispro 100 unit/mL 1 sliding scale dose subcut TIDM 10/30/22 06/27/23 History subcutaneous pen (Humalog KwikPen (U-100) Insulin) loperamide 2 mg capsule 2 mg PO BID PRN Diarrhea 12/04/22 06/27/23 History pantoprazole 40 mg tablet,delayed 40 mg PO BID #60 tabs 12/12/22 06/27/23 Rx release gabapentin 800 mg tablet 800 mg PO QID #120 tabs 01/25/23 06/27/23 Rx metoprolol succinate 25 mg 37.5 mg (1.5 x 25 mg) PO HS #45 01/25/23 06/27/23 Rx tablet,extended release 24 hr tabs ondansetron 4 mg disintegrating 4 mg translingual Q8H PRN Nausea 01/25/23 06/27/23 Rx tablet #60 tabs docusate sodium 100 mg capsule 100 mg PO BID #60 caps 03/28/23 06/27/23 Rx insulin glargine 100 unit/mL (3 15 unit (0.15 mL) subcut BID #15 mL 03/28/23 06/27/23 Rx mL) subcutaneous pen (Lantus Solostar U-100 Insulin) sennosides 8.6 mg tablet (Senokot) 17.2 mg (2 x 8.6 mg) PO QAM #60 03/28/23 06/27/23 Rx tabs losartan 25 mg tablet 25 mg PO QAM #90 tabs 03/29/23 06/27/23 Rx sertraline 50 mg tablet 150 mg (3 x 50 mg) PO HS 90 days 03/29/23 06/27/23 Rx #270 tabs trazodone 100 mg tablet 100 mg PO HS #90 tabs 04/12/23 06/27/23 Rx blood-glucose sensor (Dexcom G7 #3 ea 05/11/23 06/27/23 Rx Sensor device) oxycodone-acetaminophen 7.5 mg-325 1 tab PO Q8H PRN Pain 30 days #90 06/25/23 06/27/23 Rx mg tablet tabs baclofen 10 mg tablet 10 mg PO TID PRN Muscle Spasm 06/27/23 06/27/23 History diclofenac sodium 1 % topical gel 4 g EXT QID PRN as directed 06/27/23 06/27/23 History (Voltaren Arthritis Pain) Past Med/Surg History Medical History Hypertriglyceridemia Incarcerated left inguinal hernia Fever Chronic back pain History of chest pain Fibromyalgia History of pulmonary embolism roughly 15yrs ago--unknown cause--no blood thinners COVID-19 11/08/2022 @ [facility]--head cold symptoms, slight cough--no symptoms now IBS (irritable bowel syndrome) TIA (transient ischemic attack) "more than 15yrs ago"--unknown cause, no deficits--no neurologist Hypertension Hyperlipidemia GERD with esophagitis Diabetes IDDM Depression CAD (coronary artery disease) Surgical History S/P left inguinal hernia repair (03/26/23) Open Left Inguinal Hernia Repair with Mesh(Left) - Pollo Red DO History of fusion of cervical spine normal ROM History of repair of right rotator cuff History of bladder suspension procedure History of laparoscopy lysis of adhesions removal History of esophagogastroduodenoscopy (EGD) History of colonoscopy History of tooth extraction all teeth removed Hx of cholecystectomy H/O tubal ligation H/O: hysterectomy bhupendra bso H/O hernia repair x2 S/P coronary artery stent placement 5yrs ago @ [facility]--1 stent total H/O cardiac catheterization x1 roughly 5 yrs ago @ [facility]--1 stent placed--follows with Dr. Moy Family History Mother Respiratory arrest Coronary heart disease Hypertension Father Cancer Sister Diabetes Multiple sclerosis Other No family history of adverse response to anesthesia Social History Smoking Status: Former smoker packs per day: 1; Second Hand Exposure: No; Do You Dip or Chew Tobacco: No; Hx Alcohol Use: No Hx Substance Use: No Preferred Language: Croatian Communication Ability: Effective Cross Tie Maker Required: No Beliefs That Will Affect Care: None Current Living Situation: Alone Feels Safe at Home: Yes Physical Exam Physical Exam: Gen: NAD, alert, interactive HEENT: Supple, no LAD, no thyromegaly, no JVD, dry mucous membranes Resp:Non-labored, no wheezing/rhonchi/rales, CTAB CV:RRR, normal S1/S2, no M/R/G Abd: Soft, non-distended, epigastric TTP w/ diffuse guarding, normoactive bowels, no masses Extr: 2+ dp bilaterally, no edema Skin: No rashes lesions or erythema Results & Data Results & Data Vital Signs (Past 12 Hours) Vital Signs Temp Pulse Resp BP Pulse Ox O2 Del Method 06/27/23 20:10 84 23 06/27/23 19:53 87 06/27/23 19:22 36.9 C 96 H 22 139/89 96 Room Air Supervising Physician Co-Signing Physician Notes Attending addendum: I have physically seen this patient, have supervised the medical residents activities, and agree with the H&P unless as otherwise noted. Assessment and Plan: Pancreatitis- Lipase 318 on admission Triglycerides 2069 Normal LFTs Insulin drip with target normalizing triglycerides Add Tricor daily To lower triglycerides Acetaminophen 1 g IV every 8 hours as needed for mild pain or fever Morphine sulfate 2 mg IV every 4 hours as needed for moderate pain Morphine sulfate 4 mg IV every 4 hours as needed for breakthrough pain Hyperglycemia with uncontrolled diabetes mellitus type 2- Hemoglobin A1c 16.6, with BSG 898 noted in the outpatient setting prior to arrival Status post 2 L normal saline in the ED Continue insulin drip begun in the ED IV fluids as noted per protocol change Reaffirm appropriate diet and exercise CAD/hypertension- Continue metoprolol and losartan Resident Activity Tracking Resident Involvement: Resident Care Provided Care Provided: Adult Hospital Medicine (night)
[2023-06-28] MEDS ORDERED: ACETAMINOPHEN 325 MG TAB PO PRN (01:16)
[2023-06-28] MEDS ORDERED: BACLOFEN 10 MG TAB PO PRN (01:16)
[2023-06-28] MEDS ORDERED: DICLOFENAC SOD 1% GEL 100 GM TUBE EXT PRN (01:16)
[2023-06-28 01:25] LABS: BUN Creatinine Ratio 26.8 (10-20); Calcium 8.8 mg/dl (8.6-10.3); Creatinine Clr Calc Pharmacy 88.4 ml/min; Est GFR (African American) 105.8 ml/min; Est GFR (Non-African American) 91.3 ml/min; Magnesium 2.1 mg/dl (1.7-2.4); Phosphorus 2.5 mg/dl (2.5-4.9)
[2023-06-28] MEDS ORDERED: ACETAMINOPHEN 1,000 MG/100 ML VIAL IV PRN (01:30)
[2023-06-28 01:39] LABS: Potassium 3.3 mmol/L (3.5-5.1)
[2023-06-28] MEDS: NSS + 20MEQ KCL 20 MEQ/1,000 ML BAG IV SCH (01:39)
[2023-06-28] MEDS: MoRPHine SULFATE 2 MG/ML CARP IV PRN (01:39)
--- NOTE | 2023-06-28 02:12 | Emergency Department Note ---
History of Present Illness General Chief Complaint: Hyperglycemia Stated Complaint: 896/HIGH BLOOD SUGAR Time Seen by Provider: 06/27/23 19:38 History of Present Illness Provider Complaint: + abnormal lab Description of abnormal result: Elevated blood sugar Associated symptoms: + nausea and + abdominal pain; no fever, no chest pain or no shortness of breath Home Medications Medication Instructions Recorded Confirmed Type insulin lispro 100 unit/mL 1 sliding scale dose subcut TIDM 10/30/22 06/27/23 History subcutaneous pen (Humalog KwikPen (U-100) Insulin) loperamide 2 mg capsule 2 mg PO BID PRN Diarrhea 12/04/22 06/27/23 History pantoprazole 40 mg tablet,delayed 40 mg PO BID #60 tabs 12/12/22 06/27/23 Rx release gabapentin 800 mg tablet 800 mg PO QID #120 tabs 01/25/23 06/27/23 Rx metoprolol succinate 25 mg 37.5 mg (1.5 x 25 mg) PO HS #45 01/25/23 06/27/23 Rx tablet,extended release 24 hr tabs ondansetron 4 mg disintegrating 4 mg translingual Q8H PRN Nausea 01/25/23 06/27/23 Rx tablet #60 tabs docusate sodium 100 mg capsule 100 mg PO BID #60 caps 03/28/23 06/27/23 Rx insulin glargine 100 unit/mL (3 15 unit (0.15 mL) subcut BID #15 mL 03/28/23 06/27/23 Rx mL) subcutaneous pen (Lantus Solostar U-100 Insulin) sennosides 8.6 mg tablet (Senokot) 17.2 mg (2 x 8.6 mg) PO QAM #60 03/28/23 06/27/23 Rx tabs losartan 25 mg tablet 25 mg PO QAM #90 tabs 03/29/23 06/27/23 Rx sertraline 50 mg tablet 150 mg (3 x 50 mg) PO HS 90 days 03/29/23 06/27/23 Rx #270 tabs trazodone 100 mg tablet 100 mg PO HS #90 tabs 04/12/23 06/27/23 Rx blood-glucose sensor (Dexcom G7 #3 ea 05/11/23 06/27/23 Rx Sensor device) oxycodone-acetaminophen 7.5 mg-325 1 tab PO Q8H PRN Pain 30 days #90 06/25/23 06/27/23 Rx mg tablet tabs baclofen 10 mg tablet 10 mg PO TID PRN Muscle Spasm 06/27/23 06/27/23 History diclofenac sodium 1 % topical gel 4 g EXT QID PRN as directed 06/27/23 06/27/23 History (Voltaren Arthritis Pain) Allergies Allergy/AdvReac Type Severity Reaction Status Date / Time Iodinated Contrast Media Allergy Severe STOP Verified 04/04/23 08:49 BREATHING bupropion [From Wellbutrin] Allergy Mild Hallucinati Verified 04/04/23 08:49 ng divalproex sodium Allergy Mild Vomiting Verified 04/04/23 08:49 [From Depakote] ketorolac [From Toradol] Allergy Mild can not Verified 04/04/23 08:49 void metronidazole Allergy Mild VOMITS Verified 04/04/23 08:49 nitrofurantoin Allergy Mild VOMITS Verified 04/04/23 08:49 pregabalin [From Lyrica] Allergy Mild Hallucinati Verified 04/04/23 08:49 ng strawberry Allergy Mild Hives Verified 04/04/23 08:49 tramadol Allergy Mild can not Verified 04/04/23 08:49 void ziprasidone [From Geodon] Allergy Mild Vomiting Verified 04/04/23 08:49 Past Med/Surg History Medical History Hypertriglyceridemia Incarcerated left inguinal hernia Fever Chronic back pain History of chest pain Fibromyalgia History of pulmonary embolism roughly 15yrs ago--unknown cause--no blood thinners COVID-19 11/08/2022 @ [facility]--head cold symptoms, slight cough--no symptoms now IBS (irritable bowel syndrome) TIA (transient ischemic attack) "more than 15yrs ago"--unknown cause, no deficits--no neurologist Hypertension Hyperlipidemia GERD with esophagitis Diabetes IDDM Depression CAD (coronary artery disease) Surgical History S/P left inguinal hernia repair (03/26/23) Open Left Inguinal Hernia Repair with Mesh(Left) - Pollo Red DO History of fusion of cervical spine normal ROM History of repair of right rotator cuff History of bladder suspension procedure History of laparoscopy lysis of adhesions removal History of esophagogastroduodenoscopy (EGD) History of colonoscopy History of tooth extraction all teeth removed Hx of cholecystectomy H/O tubal ligation H/O: hysterectomy bhupendra bso H/O hernia repair x2 S/P coronary artery stent placement 5yrs ago @ [facility]--1 stent total H/O cardiac catheterization x1 roughly 5 yrs ago @ [facility]--1 stent placed--follows with Dr. 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 Beliefs That Will Affect Care: None Current Living Situation: Alone Other Information That Helps Us Care for You: No Feels Safe at Home: Yes Safety Concerns: Feels Safe At This Time Assistive Devices: Cane and Walker Physical Exam 2 Vital Signs: Vital Signs - 24 hr 06/27/23 19:22 06/27/23 19:53 06/27/23 20:10 Temperature 36.9 C Temperature Source Temporal Artery Sc an Pulse Rate 96 H 87 84 Respiratory Rate 22 23 Blood Pressure 139/89 Blood Pressure Mabel n 105 Pulse Oximetry 96 Oxygen Delivery Me thod Room Air Sepsis Recent Feve r Within 48 Hours No Sepsis New/Unexpla ined Change in Men cesilia Status N/A Sepsis Action Take n by Nursing No Action Required 06/27/23 21:44 06/27/23 23:00 Temperature Temperature Source Pulse Rate 78 85 Respiratory Rate 20 16 Blood Pressure 147/80 H 112/73 Blood Pressure Mabel n 102 86 Pulse Oximetry 96 Oxygen Delivery Me thod Room Air Sepsis Recent Feve r Within 48 Hours Sepsis New/Unexpla ined Change in Men cesilia Status Sepsis Action Take n by Nursing Physical Exam: Physical Exam GENERAL: She is oriented to person, place, and time. She appears well-developed and well-nourished. She does not appear distressed. HENT: Exam performed. -Head: Normocephalic and atraumatic. -Right Ear: External ear normal. No mastoid erythema -Left Ear: External ear normal. No mastoid erythema -Mouth/Throat: The oropharynx is clear and moist. No trismus in the jaw. No dental abscesses or uvula swelling. No oropharyngeal exudate or tonsillar abscesses. EYES: Conjunctivae and EOM are normal.Right eye exhibits no discharge. Left eye exhibits no discharge. No scleral icterus. NECK: Normal range of motion. Neck supple. No JVD present. No tracheal deviation and normal range of motion present. CV: Normal rate, regular rhythm, normal heart sounds and intact distal pulses. There is no peripheral edema. Palpable radial pulses bue. PULM/CHEST: Effort normal and breath sounds normal. No respiratory distress. No stridor. She has no wheezes. She has no rales. -Chest Wall: She exhibits no tenderness. ABD: The abdomen is soft. Bowel sounds are normal. She has no distension. No mass is present. There is diffuse tenderness to palpation. There is no rebound, no guarding. MUSC/SKEL: Normal range of motion. There is no peripheral edema, tenderness or deformity. NEURO: Motor and sensation grossly intact. SKIN: Skin is warm and dry. She is not diaphoretic. PSYCH: She has a normal mood and affect. Behavior is normal. Judgment and thought content normal. Course Course 1937: The patient was evaluated in room B2. A complete history and physical exam was performed Cardiac monitoring: An order was placed for continuous cardiac monitoring. The monitor shows a rate of 90 with sinus rhythm interpreted by ok 2055: Vital signs stable. Labs show an increase osmolar gap, no DKA. Lipase is 318. Is thought that the patient is suffering from HHS as well as pancreatitis secondary to her hypertriglyceridemia. Patient be started on insulin drip and admitted to the [facility] team. Administered Medications Insulin Human Regular 250 (units/ Sodium Chloride) 250 mls @ 6.2 mls/hr IV .Q24H [facility]; Protocol Stop: 07/27/23 21:14 Last Titration: 06/28/23 01:25 Dose: 6.2 units/hr, 6.2 mls/hr Documented By: CATIE Co-signed By: JUANJO Titration: 06/28/23 00:20 Dose: 6.2 units/hr, 6.2 mls/hr Documented By: CATIE Co-signed By: JUANJO Admin: 06/27/23 21:40 Dose: 7.8 units/hr, 7.8 mls/hr Documented By: CATIE Co-signed By: KAIT Potassium Chloride/Sodium Chloride (Normal Saline W/20 Meq Kcl) 20 meq in 1,000 mls @ 200 mls/hr IV .Q5H MOOSE Stop: 07/28/23 01:29 Last Admin: 06/28/23 01:39 Dose: 200 mls/hr Documented By: CATIE Insulin Aspart (Insulin Aspart Per Unit Charge) 0 units SC ACHS MOOSE Stop: 07/27/23 20:59 Last Admin: 06/27/23 21:38 Dose: Not Given Documented By: CATIE Co-signed By: KAIT Morphine Sulfate (Morphine Sulfate 2 Mg/Ml Carp) 2 mg IV Q6H PRN PRN Reason: Pain 6-10 Stop: 07/12/23 01:26 Last Admin: 06/28/23 01:39 Dose: 2 mg Documented By: CATIE Discontinued Medications Sodium Chloride (Nss) 1,000 mls @ 999 mls/hr IV .Q1H1M ONE Stop: 06/27/23 20:45 Last Infusion: 06/27/23 21:02 Dose: Infused Documented By: Admin: 06/27/23 20:04 Dose: 999 mls/hr Documented By: CATIE Sodium Chloride (Nss) 1,000 mls @ 999 mls/hr IV .Q1H1M ONE Stop: 06/27/23 22:48 Last Infusion: 06/28/23 00:11 Dose: Infused Documented By: Admin: 06/27/23 22:05 Dose: 999 mls/hr Documented By: CATIE Miscellaneous (Stat Iv Infusion Titration Per Protocol) 1 each N/A NOW STA Stop: 06/27/23 20:54 Last Admin: 06/27/23 21:38 Dose: Not Given Documented By: CATIE Morphine Sulfate (Morphine Sulfate 4 Mg/Ml 1 Ml Carp\\Vial) 4 mg IV NOW STA Stop: 06/27/23 19:57 Last Admin: 06/27/23 20:04 Dose: 4 mg Documented By: CATIE Morphine Sulfate (Morphine Sulfate 4 Mg/Ml 1 Ml Carp\\Vial) 8 mg IV NOW STA Stop: 06/27/23 21:49 Last Admin: 06/27/23 22:05 Dose: 8 mg Documented By: CATIE Ondansetron HCl (Ondansetron Inj 2 Mg/Ml 2 Ml Vial) 4 mg IV NOW STA Stop: 06/27/23 19:57 Last Admin: 06/27/23 20:05 Dose: 4 mg Documented By: CATIE Medical Decision Making Medical Records Attestation: I reviewed the patient's medical records. External medical records reviewed. Outpatient labs conducted today showed a cholesterol 386. Triglycerides 2069. Sodium 121. Glucose 898. Laboratory Data Attestation: I reviewed the patient's lab results. 06/27/23 19:39 06/28/23 00:34 Lab Results 06/27/23 06/27/23 06/27/23 Range/Units 19:25 19:39 19:40 WBC 9.33 (4.8-10.8) K/ul RBC 4.66 (4.20-5.40) M/uL Hgb 14.6 (12.0-16.0) g/dl POC Hgb 15.0 (12.0-16.0) g/dl Hct 39.4 (37.0-47.0) % POC Hct 44 (37-47) % MCV 84.5 (80.0-100.0) fL MCH 31.3 (25.0-34.0) pg MCHC 37.1 H (32.0-36.0) g/dL RDW Std Deviation 37.1 (36.4-46.3) fL RDW Coeff of [place] 12.2 (11.5-14.5) % Plt Count 211 (130-400) K/uL MPV 10.6 (9.4-12.4) fL Immature Gran % (Auto) 0.8 % Neut % (Auto) 60.3 % Lymph % (Auto) 27.8 % [place] % (Auto) 8.4 % Eos % (Auto) 1.9 % Baso % (Auto) 0.8 % Neut # (Auto) 5.64 (1.40-6.50) K/uL Lymph # (Auto) 2.59 (1.20-3.40) K/uL [place] # (Auto) 0.78 H (0.11-0.59) K/uL Eos # (Auto) 0.18 (0.00-0.50) K/uL Baso # (Auto) 0.07 (0.00-0.20) K/uL Immature Gran # (Auto) 0.07 (0.01-0.20) K/uL PT 10.0 (9.0-12.0) Seconds INR 0.9 (0.9-1.1) APTT 21 (21-31) Seconds PTT Ratio 0.7 VBG pH (7.36-7.41) VBG pCO2 (38-50) mmHg VBG pO2 mmHg VBG HCO3 mmol/L VBG O2 Saturation % VBG Base Excess mEq/L POC Sodium 125 L (135-144) mmol/L Sodium 123 L (136-145) mmol/L POC Potassium 4.5 (3.3-5.0) mmol/L Potassium 4.4 (3.5-5.1) mmol/L POC Chloride 88 L (101-112) mmol/L Chloride 84 L (98-107) mmol/L Carbon Dioxide 29 (21-32) mmol/L POC Total CO2 34 H (24-31) mmol/L Anion Gap 10 (3-11) POC Anion Gap 9.0 L (16-25) mmol/L POC BUN 23 H (7-18) mg/dl BUN 22 (6-23) mg/dl Creatinine 0.94 (0.6-1.2) mg/dl POC Creatinine 0.7 (0.6-1.3) mg/dl Est Cr Clr Drug Dosing Not Reportable Est GFR ( Amer) 75.4 ml/min Est GFR (Non-Af Amer) 65.0 ml/min BUN/Creatinine Ratio 23.4 H (10-20) Glucose 715 H* (70-99(Fasting)) mg/dl POC Glucose > 600 H* (70-99) mg/dl POC Glucose (other) 690 H* (70-99) mg/dl Osmolality 313 H (280-300) mOsm/kg Calcium 9.9 (8.6-10.3) mg/dl POC Ioniz Calcium [place] 1.26 (1.12-1.32) mmol/l Total Bilirubin 0.5 (0.2-1.0) mg/dl AST 15 (13-39) U/L ALT 17 (7-52) U/L Alkaline Phosphatase 137 H (34-104) U/L Total Protein 7.5 (6.0-8.3) gm/dl Albumin 4.3 (3.4-5.0) gm/dl Globulin 3.2 (2.5-4.0) gm/dl Albumin/Globulin Ratio 1.3 (0.9-2) Lipase 318 H (11-82) U/L Urine Color Yellow Urine Appearance Clear (Clear) Urine pH 7.0 (4.5-7.5) Ur Specific [place] 1.037 H (1.000-1.030) Urine Protein Negative (Negative) Urine Glucose (UA) 3+ H (Negative) Urine Ketones Negative (Negative) Urine Blood Negative (Negative) Urine Nitrite Negative (Negative) Urine Bilirubin Negative (Negative) Urine Urobilinogen Negative (Negative) Ur Leukocyte Esterase Negative (Negative) 06/27/23 06/27/23 06/27/23 Range/Units 20:18 21:41 22:54 WBC (4.8-10.8) K/ul RBC (4.20-5.40) M/uL Hgb (12.0-16.0) g/dl POC Hgb (12.0-16.0) g/dl Hct (37.0-47.0) % POC Hct (37-47) % MCV (80.0-100.0) fL MCH (25.0-34.0) pg MCHC (32.0-36.0) g/dL RDW Std Deviation (36.4-46.3) fL RDW Coeff of [place] (11.5-14.5) % Plt Count (130-400) K/uL MPV (9.4-12.4) fL Immature Gran % (Auto) % Neut % (Auto) % Lymph % (Auto) % [place] % (Auto) % Eos % (Auto) % Baso % (Auto) % Neut # (Auto) (1.40-6.50) K/uL Lymph # (Auto) (1.20-3.40) K/uL [place] # (Auto) (0.11-0.59) K/uL Eos # (Auto) (0.00-0.50) K/uL Baso # (Auto) (0.00-0.20) K/uL Immature Gran # (Auto) (0.01-0.20) K/uL PT (9.0-12.0) Seconds INR (0.9-1.1) APTT (21-31) Seconds PTT Ratio VBG pH 7.44 H (7.36-7.41) VBG pCO2 47 (38-50) mmHg VBG pO2 44 mmHg VBG HCO3 32 mmol/L VBG O2 Saturation 76.5 % VBG Base Excess 6.6 mEq/L POC Sodium (135-144) mmol/L Sodium (136-145) mmol/L POC Potassium (3.3-5.0) mmol/L Potassium (3.5-5.1) mmol/L POC Chloride (101-112) mmol/L Chloride (98-107) mmol/L Carbon Dioxide (21-32) mmol/L POC Total CO2 (24-31) mmol/L Anion Gap (3-11) POC Anion Gap (16-25) mmol/L POC BUN (7-18) mg/dl BUN (6-23) mg/dl Creatinine (0.6-1.2) mg/dl POC Creatinine (0.6-1.3) mg/dl Est Cr Clr Drug Dosing Est GFR ( Amer) ml/min Est GFR (Non-Af Amer) ml/min BUN/Creatinine Ratio (10-20) Glucose (70-99(Fasting)) mg/dl POC Glucose 513 H* 440 H* (70-99) mg/dl POC Glucose (other) (70-99) mg/dl Osmolality (280-300) mOsm/kg Calcium (8.6-10.3) mg/dl POC Ioniz Calcium [place] (1.12-1.32) mmol/l Total Bilirubin (0.2-1.0) mg/dl AST (13-39) U/L ALT (7-52) U/L Alkaline Phosphatase (34-104) U/L Total Protein (6.0-8.3) gm/dl Albumin (3.4-5.0) gm/dl Globulin (2.5-4.0) gm/dl Albumin/Globulin Ratio (0.9-2) Lipase (11-82) U/L Urine Color Urine Appearance (Clear) Urine pH (4.5-7.5) Ur Specific [place] (1.000-1.030) Urine Protein (Negative) Urine Glucose (UA) (Negative) Urine Ketones (Negative) Urine Blood (Negative) Urine Nitrite (Negative) Urine Bilirubin (Negative) Urine Urobilinogen (Negative) Ur Leukocyte Esterase (Negative) Imaging Data Attestation: I personally reviewed and interpreted this imaging study as follows: My Impression: Chest x-ray negative. Airway clear. No pneumothorax. No consolidation. No cardiomegaly or cephalization.. No free air under the diaphragm. No fractures of the skeletal structures. ECG Data Attestation: I personally reviewed and interpreted this ECG as follows: Indication: abdominal pain Rate (beats per minute): 91 Rhythm: normal sinus Findings: no ST depression, no ST elevation or no prolonged QT Additional Comments: QRS 62 MDM Narrative 1937: The patient was evaluated in room B2. A complete history and physical exam was performed Cardiac monitoring: An order was placed for continuous cardiac monitoring. The monitor shows a rate of 90 with sinus rhythm interpreted by me 2054: Vital signs stable. Labs show an increase osmolar gap, no DKA. Lipase is 318. Is thought that the patient is suffering from HHS as well as pancreatitis secondary to her hypertriglyceridemia. Patient be started on insulin drip and admitted to the [facility] team. Impression & Plan Hyperosmolar hyperglycemic state (HHS), Hypertriglyceridemia, Acute pancreatitis Critical Care Time Critical Care Time: Yes Total Critical Care Time: 68 I have personally spent greater than 68 minutes of critical care time in the direct management of this patient. This includes bedside care, interpretation of diagnostic studies, and testing, discussion with consultants, patient, and family members, and other required patient management activities. This 68 minutes is in excess of all separately billable procedures. Discharge Plan Visit Data Chief Complaint: Hyperglycemia Stated Complaint: 896/HIGH BLOOD SUGAR ED Provider: Billy Pryor Discharge Problem: Hyperosmolar hyperglycemic state (HHS), Hypertriglyceridemia, Acute pancreatitis Patient Disposition: Admitted As Inpatient Discharge Instructions Interventions: ED Discharge Assessment Last Done: 06/28/23 01:17 Discharge Problem: Acute pancreatitis Qualifiers: Pancreatitis type: unspecified pancreatitis type Acute pancreatitis complication: unspecified Qualified Code(s): K85.90 - Acute pancreatitis without necrosis or infection, unspecified
[2023-06-28] MEDS: D5NSS + 20MEQ KCL 20 MEQ/1,000 ML BAG IV SCH (02:42)
--- NOTE | 2023-06-28 02:59 | CT Scan Report ---
Exam(s): CT ABDOMEN + PELVIS Without Contrast EXAM: CT Abdomen and Pelvis Without Intravenous Contrast CLINICAL HISTORY: Reason for exam: Epigastric pain/hyperglycemia/hx pancreatitis. TECHNIQUE: Axial computed tomography images of the abdomen and pelvis without intravenous contrast. CTDI is 26.4 mGy and DLP is 1308.81 mGy-cm. Automated exposure control was utilized for the study. A dose lowering technique was utilized adhering to the principles of ALARA. COMPARISON: CT Abdomen Pelvis dated 03/24/2023 FINDINGS: Lung bases: Left lower lobe calcified granuloma. No consolidation. ABDOMEN: Liver: Hepatic steatosis. Gallbladder and bile ducts: Cholecystectomy as on the prior. No ductal dilation. Pancreas: Minimal stranding around the pancreatic head and in the right anterior pararenal space. New since the prior. No ductal dilation. Spleen: Unremarkable. No splenomegaly. Adrenals: Unremarkable. No mass. Kidneys and ureters: Unremarkable. No obstructing stones. No hydronephrosis. Stomach and bowel: Unremarkable. No obstruction. No mucosal thickening. PELVIS: Appendix: No findings to suggest acute appendicitis. Bladder: Unremarkable. No stones. Reproductive: Absent uterus. ABDOMEN and PELVIS: Intraperitoneal space: Unremarkable. No free air. No significant fluid collection. Bones/joints: No acute fracture. No dislocation. Degenerative changes of the spine. Soft tissues: Ventral/umbilical hernia repair, stable. New small hematoma/fluid collection in the left inguinal region. Vasculature: Unremarkable. No abdominal aortic aneurysm. Lymph nodes: Unremarkable. No enlarged lymph nodes. IMPRESSION: 1. Minimal stranding around the pancreatic head and in the right anterior pararenal space. New since the prior. May represent acute pancreatitis. 2. Cholecystectomy, stable. 3. New small hematoma/fluid collection in the left inguinal region. Correlate for postoperative changes versus other etiology. Electronically signed by: Mckinley Tejada M.D. 06/28/23 02:58 AM
[2023-06-28 04:19] LABS: Base Excess VBG 5.5 mEq/L; HCO3 VBG 32 mmol/L; Oxygen Saturation VBG 82.3 %; PCO2 VBG 51 mmHg (38-50); PO2 VBG 49 mmHg
[2023-06-28 04:30] LABS: Hematocrit (blood only) 32.9 % (37.0-47.0); Mean Corpuscular Hemoglobin 31.2 pg (25.0-34.0); Mean Corpuscular Hgb Conc 36.5 g/dL (32.0-36.0); Mean Corpuscular Volume 85.5 fL (80.0-100.0); Mean Platelet Volume 10.4 fL (9.4-12.4); Platelet Count 157 K/uL (130-400); RDW Coefficient of Variation 12.5 % (11.5-14.5); RDW Standard Deviation 38.1 fL (36.4-46.3); Red Blood Count 3.85 M/uL (4.20-5.40); White Blood Count 8.48 K/ul (4.8-10.8)
[2023-06-28 04:41] LABS: BUN Creatinine Ratio 27.9 (10-20); Calcium 8.5 mg/dl (8.6-10.3); Creatinine Clr Calc Pharmacy 102.9 ml/min; Est GFR (African American) 112.6 ml/min; Est GFR (Non-African American) 97.2 ml/min; Potassium 3.1 mmol/L (3.5-5.1)
[2023-06-28 05:00] LABS: Phosphorus 2.9 mg/dl (2.5-4.9)
[2023-06-28] MEDS: MoRPHine SULFATE 4 MG/ML 1 ML CARP\\VIAL IV PRN (05:31)
--- NOTE | 2023-06-28 06:53 | XRay Report ---
XR chest 1V not portable HISTORY: 62 years-old Female weakness COMPARISON: March 27, 2023 TECHNIQUE: AP view of the chest FINDINGS: Cardiomediastinal and hilar silhouettes are within normal limits. No pneumothorax, pleural effusion o r airspace consolidation. Cervical spinal fusion hardware. Bones appear grossly intact. There are a f ew scattered pulmonary calcified granulomata. IMPRESSION: No acute process. ACT 112: Negative or not required by law. The above report was generated using voice recognition software. It may contain grammatical, syntax o r spelling errors. Electronically signed by: Hayden Moody M.D. 06/28/2023 6:51 AM
--- NOTE | 2023-06-28 07:40 | Hospitalist Progress Note ---
Date of Service June 28, 2023 Assessment & Plan (1) Pancreatitis: Plan: 62 y/o admitted with nausea and abdominal pain, found to have acute pancreatitis with elevated lipase and stranding near pancreatic head on CT. This was triggered by severe hypertriglyceridemia with initial TG 2068. Does not drink alcohol and has had cholecystectomy. -2L IVF given at presentation, continue aggressive IVF for first 48h for acute pancreatitis. Ordered LR at 200/h. -continue insulin drip for triglycerides at this time, improved from 1999s-->1200. Stop insulin drip when well below 1000. Will need to start fenofibrate -repeat BMP and TG now, BMP/CBC/TG/mag in am -pain control with IV morphine and IV acetaminophen -NPO for now until pain improves Had previous episode of acute pancreatitis thought related to medications (statin and HCTZ?). Father had pancreas cancer. Brother from severe pancreatitis - issue with a "blocked duct," sister has also had acute pancreatitis -we discussed establishing GI follow up (2) Hypertriglyceridemia: Plan: see above (3) Poorly controlled type 2 diabetes mellitus: Plan: Uncontrolled severe hyperglycemia on presentation with BG>800 A1c 16 Currently on insulin drip for TG (4) Neuropathy: (5) JOYCE (generalized anxiety disorder): (6) Depression: (7) Fibromyalgia: (8) CAD (coronary artery disease): Plan: Hx cardiac stent (9) GERD with esophagitis: (10) Hyperlipidemia: (11) Hypertension: (12) IBS (irritable bowel syndrome): Plan Chronic Conditions: * CAD: Continue Metoprolol * GERD: Continue PPI * HLD: No home statin * HTN: Continue Losartan * IBS: Supportive measures inpatient * Fibromyalgia/Chronic Pain: Continue home pain management regimen * Anxiety/Depression: continue home Sertraline DVT ppx: enoxaparin Admission and Anticipated Discharge Date Admission Date: June 27, 2023 Subjective continues to have severe epigastric pain rad to back and nausea, no emesis pain maybe a little worse than yesterday +flatus Physical Exam 2 Physical Exam: PHYSICAL EXAMINATION Last 24h vital signs reviewed, see documentation in flowsheet General: comfortable appearing, no distress HEENT: Normocephalic, atraumatic, pupils round and equal, sclerae anicteric, no conjunctival injection, moist mucus membranes Lungs: Normal respiratory effort. Clear to auscultation bilaterally. No RRW Heart: Regular rate and rhythm, no murmurs. No JVD Abdomen: Soft, TTP in epigastric area without rrg, nondistended. quiet Bowel sounds present. Extremities: Warm, dry, well-perfused. No extremity edema. Neuro: Alert and oriented x 4, face symmetric, moves 4 extremities well Psych: Normal affect and behavior Results & Data Results & Data Vital Signs (Past 12 Hours) Vital Signs Pulse Resp BP Pulse Ox O2 Del Method 06/28/23 07:04 71 06/28/23 02:01 77 06/28/23 01:42 83 20 114/74 95 Room Air 06/27/23 23:48 85 06/27/23 23:00 85 16 112/73 06/27/23 21:44 78 20 147/80 H 96 Room Air 06/27/23 20:10 84 23 06/27/23 19:53 87 Laboratory Results 06/28/23 04:09 06/28/23 04:09 PG Care Time/CCT Total # of Minutes Spent Total Time Spent with Patient: Total time spent is greater than 50% in coordination of care (as documented) at patient's floor/unit and/or counseling patient: Coding Level of Care Code 70648 SUB INP/OBS CARE 3/50MIN Diagnoses Pancreatitis K85.90 Hypertriglyceridemia E78.1 Poorly controlled type 2 diabetes mellitus E11.65 Neuropathy G62.9 JOYCE (generalized anxiety disorder) F41.1 Depression F32.9 Fibromyalgia M79.7 CAD (coronary artery disease) I25.10 GERD with esophagitis K21.00 Hyperlipidemia E78.5 Hypertension I10 IBS (irritable bowel syndrome) K58.9
[2023-06-28] MEDS: LACTATED RINGER'S 1,000 ML IV SCH (07:51)
[2023-06-28 10:25] LABS: BUN Creatinine Ratio 27.6 (10-20); Calcium 8.4 mg/dl (8.6-10.3); Creatinine Clr Calc Pharmacy 110.2 ml/min; Est GFR (African American) 114.5 ml/min; Est GFR (Non-African American) 98.8 ml/min; Potassium 3.4 mmol/L (3.5-5.1)
[2023-06-28] MEDS: LOSARTAN POTASSIUM 25 MG TAB PO SCH (11:51)
[2023-06-28] MEDS: oxyCODONE/APAP 7.5/325MG TAB PO PRN (11:51)
[2023-06-28] MEDS: GABAPENTIN 800 MG TAB PO SCH (11:52)
[2023-06-28] MEDS: PANTOprazole 40 MG TAB PO SCH (11:52)
[2023-06-28] MEDS: ONDANSETRON INJ 2 MG/ML 2 ML VIAL IV PRN (11:59)
[2023-06-28 19:12] LABS: Potassium 3.8 mmol/L (3.5-5.1)
[2023-06-28 19:18] LABS: BUN Creatinine Ratio 22.8 (10-20); Creatinine Clr Calc Pharmacy 112.1 ml/min; Est GFR (African American) 115.2 ml/min; Est GFR (Non-African American) 99.4 ml/min
[2023-06-28] MEDS: SERTRALINE HCL 50 MG TABLET PO SCH (20:59)
[2023-06-28] MEDS: traZODone HCL 100 MG TAB PO SCH (20:59)
[2023-06-28] MEDS: METOPROLOL SUCC 25MG EXT REL TAB PO SCH (21:00)
[2023-06-29 05:38] LABS: Hemoglobin 11.1 g/dl (12.0-16.0); Mean Corpuscular Hemoglobin 31.9 pg (25.0-34.0); Mean Corpuscular Hgb Conc 35.8 g/dL (32.0-36.0); Mean Corpuscular Volume 89.1 fL (80.0-100.0); Mean Platelet Volume 10.7 fL (9.4-12.4); Platelet Count 139 K/uL (130-400); RDW Coefficient of Variation 13.2 % (11.5-14.5); Red Blood Count 3.48 M/uL (4.20-5.40); White Blood Count 5.58 K/ul (4.8-10.8)
[2023-06-29 06:08] LABS: Calcium 7.7 mg/dl (8.6-10.3); Creatinine Clr Calc Pharmacy 106.5 ml/min; Est GFR (African American) 113.2 ml/min; Est GFR (Non-African American) 97.7 ml/min; Magnesium 1.8 mg/dl (1.7-2.4); Potassium 4.1 mmol/L (3.5-5.1)
[2023-06-29] MEDS: ENOXAPARIN INJ 40 MG/0.4 ML SYR SQ SCH (09:24)
[2023-06-29] MEDS: ACETAMINOPHEN 325 MG TAB PO SCH (09:25)
[2023-06-29] MEDS: MoRPHine SULFATE 2 MG/ML CARP IV PRN (09:34)
[2023-06-29] MEDS: oxyCODONE HCL IR 5 MG TAB (IMMEDIATE RELEASE) PO PRN (11:48)
[2023-06-29] MEDS: MoRPHine SULFATE 4 MG/ML 1 ML CARP\\VIAL IV PRN (13:25)
[2023-06-29] MEDS ORDERED: MICONAZOLE NITRATE POWDER 85 GM EXT PRN (15:17)
--- NOTE | 2023-06-29 16:36 | Hospitalist Progress Note ---
Date of Service June 29, 2023 Assessment & Plan (1) Pancreatitis: Plan: 62 y/o admitted with nausea and abdominal pain, found to have acute pancreatitis with elevated lipase and stranding near pancreatic head on CT. This was triggered by severe hypertriglyceridemia with initial TG 2068. Does not drink alcohol and has had cholecystectomy. -2L IVF given at presentation, continue aggressive IVF for first 48h for acute pancreatitis. Ordered LR at 200/h. -continue insulin drip for triglycerides at this time, improved from 1999s-->1200-->800. Stop insulin drip when able to advance to at least clear liquids. Will need to start fenofibrate -CBC BMP reviewed, reassuring. No ANGELICA or hemoconcentration -pain control increased - IV hydromorphone and po oxycodone. Takes opioids regularly at home for chronic pain. -continue NPO for now until pain improves Had previous episode of acute pancreatitis thought related to medications (statin and HCTZ?). Father had pancreas cancer. Brother from severe pancreatitis - issue with a "blocked duct," sister has also had acute pancreatitis -we discussed establishing GI follow up, made referral (2) Hypertriglyceridemia: Plan: see above (3) Poorly controlled type 2 diabetes mellitus: Plan: Uncontrolled severe hyperglycemia on presentation with BG>800 A1c 16 Currently on insulin drip (4) Neuropathy: (5) JOYCE (generalized anxiety disorder): (6) Depression: (7) Fibromyalgia: (8) CAD (coronary artery disease): Plan: Hx cardiac stent (9) GERD with esophagitis: (10) Hyperlipidemia: (11) Hypertension: (12) IBS (irritable bowel syndrome): Plan Chronic Conditions: * CAD: Continue Metoprolol * GERD: Continue PPI * HLD: No home statin * HTN: held losartan * IBS: Supportive measures inpatient * Fibromyalgia/Chronic Pain: Continue home pain management regimen * Anxiety/Depression: continue home Sertraline DVT ppx: enoxaparin Admission and Anticipated Discharge Date Admission Date: June 27, 2023 Subjective Abdominal pain seems worse today, feels hungry, nausea better no emesis, +flatus and had a stool this am Physical Exam 2 Physical Exam: PHYSICAL EXAMINATION Last 24h vital signs reviewed, see documentation in flowsheet General: comfortable appearing, no distress HEENT: Normocephalic, atraumatic, pupils round and equal, sclerae anicteric, no conjunctival injection, moist mucus membranes Lungs: Normal respiratory effort. Clear to auscultation bilaterally. No RRW Heart: Regular rate and rhythm, no murmurs. No JVD Abdomen: Soft, very TTP in upper abdomen, no rebound, nondistended. active Bowel sounds present. Extremities: Warm, dry, well-perfused. mild lower extremity edema. Neuro: Alert and oriented x 4, face symmetric, moves 4 extremities well Psych: Normal affect and behavior Results & Data Results & Data Vital Signs (Past 12 Hours) Vital Signs Temp Pulse Pulse Resp BP BP Pulse Ox 06/29/23 15:33 36.6 C 69 16 106/66 98 06/29/23 12:05 73 06/29/23 11:32 36.7 C 66 18 107/67 97 06/29/23 07:54 36.3 C L 72 17 92/53 L 95 O2 Del Method 06/29/23 15:33 Room Air 06/29/23 12:05 06/29/23 11:32 Room Air 06/29/23 07:54 Room Air Laboratory Results 06/29/23 04:55 06/29/23 04:55 PG Care Time/CCT Total # of Minutes Spent Total Time Spent with Patient: Total time spent is greater than 50% in coordination of care (as documented) at patient's floor/unit and/or counseling patient: Coding Level of Care Code 82694 SUB INP/OBS CARE 2/35MIN Diagnoses Pancreatitis K85.90 Hypertriglyceridemia E78.1 Poorly controlled type 2 diabetes mellitus E11.65 Neuropathy G62.9 JOYCE (generalized anxiety disorder) F41.1 Depression F32.9 Fibromyalgia M79.7 CAD (coronary artery disease) I25.10 GERD with esophagitis K21.00 Hyperlipidemia E78.5 Hypertension I10 IBS (irritable bowel syndrome) K58.9
[2023-06-29] MEDS: HYDROmorphone INJ 0.5 MG/0.5 ML SYR IV PRN (16:43)
--- NOTE | 2023-06-30 04:58 | Billing Data ---
Date of Service June 30, 2023 Coding Level of Care Code 09573 INT INP/OBS CARE
--- NOTE | 2023-06-30 06:05 | Electrocardiogram Report ---
Test Reason : Blood Pressure : / mmHG Vent. Rate : 091 BPM Atrial Rate : 091 BPM P-R Int : 138 ms QRS Dur : 062 ms QT Int : 366 ms P-R-T Axes : 069 013 070 degrees QTc Int : 450 ms Normal sinus rhythm Low voltage QRS Cannot rule out Anterior infarct (cited on or before 27-JUN-2023) Abnormal ECG When compared with ECG of 24-JAN-2023 15:11, Vent. rate has increased BY 31 BPM Questionable change in initial forces of Anterior leads Confirmed by Javon Dugan ([id number]) on 06/30/2023 6:05:35 AM Referred By: Khoa Tracy Confirmed By:Javon Dugan
[2023-06-30 07:02] LABS: BUN Creatinine Ratio 6.2 (10-20); Calcium 7.6 mg/dl (8.6-10.3); Est GFR (African American) 110.3 ml/min; Est GFR (Non-African American) 95.2 ml/min; Magnesium 1.6 mg/dl (1.7-2.4); Potassium 4.1 mmol/L (3.5-5.1)
[2023-06-30] MEDS: MAGNESIUM SULFATE / D5W 1 GM/100 ML BAG IV SCH (08:45)
[2023-06-30] MEDS: LANTUS PER UNIT CHARGE SQ ONE (12:40)
--- NOTE | 2023-06-30 14:34 | Hospitalist Progress Note ---
Date of Service June 30, 2023 Assessment & Plan (1) Pancreatitis: Plan: 62 y/o admitted with nausea and abdominal pain, found to have acute pancreatitis with elevated lipase and stranding near pancreatic head on CT. This was triggered by severe hypertriglyceridemia with initial TG 2068. Does not drink alcohol and has had cholecystectomy. -2L IVF given at presentation, aggressive IVF for first 48h for acute pancreatitis: LR at 200/h. Decrease IVF to 100/h 06/29 -continue insulin drip for triglycerides at this time, improved from 1999s-->1200-->800. Stopped insulin drip today, start fenofibrate 06/30 -BMP reviewed, unremarkable -pain control - IV hydromorphone and po oxycodone. Takes opioids regularly at home for chronic pain. -failed trial of CLD today - back to npo with chips/sips Had previous episode of acute pancreatitis thought related to medications (statin and HCTZ?). Father had pancreas cancer. Brother from severe pancreatitis - issue with a "blocked duct," sister has also had acute pancreatitis -we discussed establishing GI follow up, made referral (2) Hypertriglyceridemia: Plan: see above (3) Poorly controlled type 2 diabetes mellitus: Plan: Uncontrolled severe hyperglycemia on presentation with BG>800 A1c 16 initially on insulin drip, transition to glargine and premeal/correctional aspart today. unfortunately didn't tolerate CLD so continue D5 drip and monitor BG. If hard to control while still NPO can resume insulin drip. (4) Neuropathy: (5) JOYCE (generalized anxiety disorder): (6) Depression: (7) Fibromyalgia: (8) CAD (coronary artery disease): Plan: Hx cardiac stent (9) GERD with esophagitis: (10) Hyperlipidemia: (11) Hypertension: (12) IBS (irritable bowel syndrome): Plan Chronic Conditions: * CAD: Continue Metoprolol * GERD: Continue PPI * HLD: No home statin * HTN: held losartan * IBS: Supportive measures inpatient * Fibromyalgia/Chronic Pain: Continue home pain management regimen * Anxiety/Depression: continue home Sertraline DVT ppx: enoxaparin Admission and Anticipated Discharge Date Admission Date: June 27, 2023 Subjective Abdominal pain and nausea improved this am, had BM Tried clears for lunch but had increased abdominal pain and two loose stools Physical Exam 2 Physical Exam: PHYSICAL EXAMINATION Last 24h vital signs reviewed, see documentation in flowsheet General: comfortable appearing, no distress HEENT: Normocephalic, atraumatic, pupils round and equal, sclerae anicteric, no conjunctival injection, moist mucus membranes Lungs: Normal respiratory effort. Clear to auscultation bilaterally. No RRW Heart: Regular rate and rhythm, no murmurs. No JVD Abdomen: Soft, TTP in upper abdomen but less so with no rrg, nondistended. active Bowel sounds present. Extremities: Warm, dry, well-perfused. mild lower extremity edema. Neuro: mildly sleepy and oriented x 4, face symmetric, moves 4 extremities well Psych: Normal affect and behavior Results & Data Results & Data Vital Signs (Past 12 Hours) Vital Signs Temp Pulse Resp BP Pulse Ox O2 Del Method 06/30/23 11:50 36.7 C 69 18 96/77 L 94 Room Air 06/30/23 07:50 36.6 C 77 18 123/79 96 Room Air 06/30/23 03:46 37.8 C H 80 18 111/68 94 Room Air Laboratory Results 06/29/23 04:55 06/30/23 05:39 PG Care Time/CCT Total # of Minutes Spent Total Time Spent with Patient: Total time spent is greater than 50% in coordination of care (as documented) at patient's floor/unit and/or counseling patient: Coding Level of Care Code 57191 SUB INP/OBS CARE 3/50MIN Diagnoses Pancreatitis K85.90 Hypertriglyceridemia E78.1 Poorly controlled type 2 diabetes mellitus E11.65 Neuropathy G62.9 JOYCE (generalized anxiety disorder) F41.1 Depression F32.9 Fibromyalgia M79.7 CAD (coronary artery disease) I25.10 GERD with esophagitis K21.00 Hyperlipidemia E78.5 Hypertension I10 IBS (irritable bowel syndrome) K58.9
[2023-06-30] MEDS: DC IV INSULIN INFUSION 1 EA DEVI ONE (18:04)
[2023-06-30] MEDS: INSULIN ASPART PER UNIT CHARGE SC SCH ×2 (18:11→23:50)
[2023-06-30] MEDS ORDERED: Nursing to Pharmacy Communication SCH (21:30)
[2023-06-30] MEDS: LANTUS PER UNIT CHARGE SQ SCH (21:54)
[2023-07-01 07:22] LABS: BUN Creatinine Ratio 4.4 (10-20); Creatinine Clr Calc Pharmacy 99.5 ml/min; Est GFR (African American) 108.7 ml/min; Est GFR (Non-African American) 93.7 ml/min; Magnesium 1.8 mg/dl (1.7-2.4); Potassium 4.1 mmol/L (3.5-5.1)
[2023-07-01] MEDS: FENOFIBRATE NANOCRYSTALLIZED 145 MG TABLET PO SCH (08:57)
[2023-07-01] MEDS: HYDROmorphone INJ 0.5 MG/0.5 ML SYR IV STA (10:44)
[2023-07-01] MEDS: HYDROmorphone INJ 0.5 MG/0.5 ML SYR IV PRN (12:09)
--- NOTE | 2023-07-01 12:27 | CT Scan Report ---
CT abd pelvis wo con CLINICAL HISTORY: pancreatitis, increasing severe abdominal pain TECHNIQUE: Helical axial images of the abdomen and pelvis were obtained. Automated dose lowering tech niques and/or adjustment according to patient size were utilized for this exam. This exam was perfor med without intravenous contrast. CT DOSE: 1449.14 mGy.cm COMPARISON: Comparison is made to CT abdomen pelvis 06/27/2023 FINDINGS: Lower chest: Small bilateral pleural effusions are seen with underlying atelectasis. Liver: Unremarkable. No focal lesions are seen. Gallbladder and biliary tree: Patient is status post cholecystectomy. Physiologic prominence of the b iliary ducts is noted. Pancreas: Unremarkable, no focal lesions. Spleen: Splenule is incidentally noted. Adrenals: Unremarkable. Kidneys and ureters: Unremarkable. Bladder: Unremarkable. Reproductive organs: Patient is status post hysterectomy. Bowel: The appendix is normal. Lymph nodes Retroperitoneal: Unremarkable. Pelvic: Unremarkable. Mesenteric: Unremarkable. Peritoneum: Minimal fat stranding is seen about the spleen. Vessels: Atherosclerotic calcifications are seen. Abdominal wall: Stable fluid collection in the left inguinal region and postsurgical changes of a mid line hernia repair are seen. Bones: Degenerative changes in the visualized spine. IMPRESSION: 1. Previously noted peripancreatic stranding about the head is less evident on today's exam. No evid ence of acute peripancreatic collections 2. Stable left inguinal collection. ACT 112: Negative or not required by law. Electronically signed by: Paco Hester M.D. 07/01/2023 12:24 PM
--- NOTE | 2023-07-01 15:13 | Hospitalist Progress Note ---
Date of Service July 01, 2023 Assessment & Plan (1) Pancreatitis: Plan: 62 y/o admitted with nausea and abdominal pain, found to have acute pancreatitis with elevated lipase and stranding near pancreatic head on CT. This was triggered by severe hypertriglyceridemia with initial TG 2068. Does not drink alcohol and has had cholecystectomy. Had previous episode of acute pancreatitis thought related to medications (statin and HCTZ?). Father had pancreas cancer. Brother from severe pancreatitis - issue with a "blocked duct," sister has also had acute pancreatitis -we discussed establishing GI follow up, requested referral from gas meter checker -2L IVF given at presentation, aggressive IVF for first 48h for acute pancreatitis: LR at 200/h. Decreased IVF to 100/h 06/29. Accumulating some edema. -initially was on insulin drip for triglycerides improved from -->1200-->800. Stopped insulin drip 06/29, started fenofibrate 06/30, TG 532 today -BMP reviewed, unremarkable, mild metabolic acidosis today -pain control - IV hydromorphone and po oxycodone. Takes opioids regularly at home for chronic pain. -failed trial of CLD 06/29 - npo with chips/sips 06/30 AM increased severe abdominal pain, tender to light touch so appears hyperalgesic. Lipase down to 18 and TG 530. -Obtained repeat CT (noncontrast, has severe contrast allergy), is same or improved -add on LFT -check stool C. diff -ordered IV APAP x 3 doses (states can't tolerate oral 2/2 nausea and has been refusing. IV hydromorphone increased to 1 mg. Already on gabapentin chronically. -AM CBC CMP (2) Hypertriglyceridemia: Plan: see above (3) Poorly controlled type 2 diabetes mellitus: Plan: Uncontrolled severe hyperglycemia on presentation with BG>800 A1c 16 initially on insulin drip, transitioned to glargine and premeal/correctional aspart 06/29. Adequate control with BG around 200 today. Will increase short acting a bit (4) Neuropathy: (5) JOYCE (generalized anxiety disorder): (6) Depression: (7) Fibromyalgia: (8) CAD (coronary artery disease): Plan: Hx cardiac stent (9) GERD with esophagitis: (10) Hyperlipidemia: (11) Hypertension: (12) IBS (irritable bowel syndrome): Plan Chronic Conditions: * CAD: Continue Metoprolol * GERD: Continue PPI * HLD: No home statin * HTN: held losartan * IBS: Supportive measures inpatient * Fibromyalgia/Chronic Pain: Continue home pain management regimen * Anxiety/Depression: continue home Sertraline DVT ppx: enoxaparin Admission and Anticipated Discharge Date Admission Date: June 27, 2023 Subjective Severe abdominal pain this morning and diarrhea Physical Exam 2 Physical Exam: PHYSICAL EXAMINATION Last 24h vital signs reviewed, see documentation in flowsheet General: curled up and looks pretty miserable HEENT: Normocephalic, atraumatic, pupils round and equal, sclerae anicteric, no conjunctival injection, moist mucus membranes Lungs: Normal respiratory effort. Clear to auscultation bilaterally. No RRW Heart: Regular rate and rhythm, no murmurs. No JVD Abdomen: Soft, diffusely tender to palpation (even light/feather touch) especially upper abdomen, nondistended. BT decreased frequency Extremities: Warm, dry, well-perfused. 1+ lower extremity edema. Neuro: awake and oriented x 4, face symmetric, moves 4 extremities well Psych: Normal affect and behavior Results & Data Results & Data Vital Signs (Past 12 Hours) Vital Signs Temp Pulse Resp BP BP Pulse Ox O2 Del Method 07/01/23 10:55 37.0 C 62 18 96/56 L 96 Room Air 07/01/23 07:34 36.5 C 65 18 97/60 L 96 Room Air 07/01/23 03:10 36.6 C 100 H 17 100/60 93 Room Air Laboratory Results 06/29/23 04:55 07/01/23 06:19 PG Care Time/CCT Total # of Minutes Spent Total Time Spent with Patient: Total time spent is greater than 50% in coordination of care (as documented) at patient's floor/unit and/or counseling patient: Coding Level of Care Code 38432 SUB INP/OBS CARE 3/50MIN Diagnoses Pancreatitis K85.90 Hypertriglyceridemia E78.1 Poorly controlled type 2 diabetes mellitus E11.65 Neuropathy G62.9 JOYCE (generalized anxiety disorder) F41.1 Depression F32.9 Fibromyalgia M79.7 CAD (coronary artery disease) I25.10 GERD with esophagitis K21.00 Hyperlipidemia E78.5 Hypertension I10 IBS (irritable bowel syndrome) K58.9
[2023-07-01 15:33] LABS: Albumin Level 2.9 gm/dl (3.4-5.0); Bilirubin Direct 0.1 mg/dl (0-0.2); Bilirubin,Total 0.5 mg/dl (0.2-1.0); Total Protein 5.1 gm/dl (6.0-8.3)
[2023-07-01] MEDS: ACETAMINOPHEN 1,000 MG/100 ML VIAL IV SCH (15:59)
[2023-07-01] MEDS: KETOROLAC 30 MG/ML VIAL IV ONE (16:24)
[2023-07-02 07:46] LABS: Hematocrit (blood only) 30.4 % (37.0-47.0); Hemoglobin 10.1 g/dl (12.0-16.0); Mean Corpuscular Hemoglobin 31.6 pg (25.0-34.0); Mean Corpuscular Hgb Conc 33.2 g/dL (32.0-36.0); Mean Platelet Volume 10.5 fL (9.4-12.4); Platelet Count 135 K/uL (130-400); RDW Coefficient of Variation 13.5 % (11.5-14.5); RDW Standard Deviation 46.4 fL (36.4-46.3); White Blood Count 4.02 K/ul (4.8-10.8)
[2023-07-02 08:08] LABS: Albumin Globulin Ratio 1.3 (0.9-2); Albumin Level 2.7 gm/dl (3.4-5.0); BUN Creatinine Ratio 4.4 (10-20); Bilirubin,Total 0.5 mg/dl (0.2-1.0); Calcium 7.9 mg/dl (8.6-10.3); Creatinine Clr Calc Pharmacy 74.4 ml/min; Est GFR (African American) 78.4 ml/min; Est GFR (Non-African American) 67.6 ml/min; Globulin 2.1 gm/dl (2.5-4.0); Total Protein 4.8 gm/dl (6.0-8.3)
[2023-07-02 08:10] LABS: Potassium 4.9 mmol/L (3.5-5.1)
[2023-07-02] MEDS: ACETAMINOPHEN 1,000 MG/100 ML VIAL IV SCH (11:02)
[2023-07-02] MEDS: HYDROmorphone INJ 0.5 MG/0.5 ML SYR IV PRN (16:51)
--- NOTE | 2023-07-02 17:12 | Hospitalist Progress Note ---
Date of Service July 02, 2023 Assessment & Plan (1) Pancreatitis: Plan: 62 y/o admitted with nausea and abdominal pain, found to have acute pancreatitis with elevated lipase and stranding near pancreatic head on CT. This was triggered by severe hypertriglyceridemia with initial TG 2068. Does not drink alcohol and has had cholecystectomy. Had previous episode of acute pancreatitis thought related to medications (statin and HCTZ?). Father had pancreas cancer. Brother from severe pancreatitis - issue with a "blocked duct," sister has also had acute pancreatitis -we discussed establishing GI follow up, requested referral from digital associate -2L IVF given at presentation, aggressive IVF for first 48h for acute pancreatitis: LR at 200/h. Decreased IVF to 100/h 06/29. Accumulating some edema. -initially was on insulin drip for triglycerides improved from -->1200-->800. Stopped insulin drip 06/29, started fenofibrate 06/30, TG 532 -BMP reviewed, metabolic acidosis resolved, K on high side -pain control - IV hydromorphone and po oxycodone. Takes opioids regularly at home for chronic pain. -failed trial of CLD 06/29 - npo with chips/sips 06/30 AM increased severe abdominal pain, tender to light touch so appears hyperalgesic. Lipase down to 18 and TG 530. -Obtained repeat CT (noncontrast, has severe contrast allergy), is same or improved -LFT wnl, no leukocytosis, Hg stable -stool C. diff neg 07/01 continues severe pain had hydromorphone 7 mg IV last 24h and 20 mg oxycodone. I think that pancreatitis has actually improved and she is having hyperalgesia and component of narcotic bowel or ileus to account for the abdominal pain which really escalated 06/30. She looks much more comfortable compared to yesterday. We discussed this and agreed on reducing IV hydromorphone to 0.5 mg today and scheduling IV APAP x 4 dose with goal to get off IV opioid next 24-48h. Retrial clear liquid diet and see if she can advance to FLD for dinner. (2) Hypertriglyceridemia: Plan: see above (3) Poorly controlled type 2 diabetes mellitus: Plan: Uncontrolled severe hyperglycemia on presentation with BG>800 A1c 16 initially on insulin drip, transitioned to glargine and premeal/correctional aspart 4/6. Adequate control with BG around 200 today. Stop D5 NS soon when clearly tolerating po (4) Neuropathy: (5) JOYCE (generalized anxiety disorder): (6) Depression: (7) Fibromyalgia: (8) CAD (coronary artery disease): Plan: Hx cardiac stent (9) GERD with esophagitis: (10) Hyperlipidemia: (11) Hypertension: (12) IBS (irritable bowel syndrome): Plan Chronic Conditions: * CAD: Continue Metoprolol * GERD: Continue PPI * HLD: No home statin * HTN: held losartan * IBS: Supportive measures inpatient * Fibromyalgia/Chronic Pain: Continue home pain management regimen * Anxiety/Depression: continue home Sertraline DVT ppx: enoxaparin Admission and Anticipated Discharge Date Admission Date: June 27, 2023 Subjective Continues to have severe abdominal pain - central part of abdomen and comes and goes sometimes stabbing and burning sensation. No vomiting, continues with flatus and loose BMs Appears MUCH more comfortable than yesterday however Physical Exam 2 Physical Exam: PHYSICAL EXAMINATION Last 24h vital signs reviewed, see documentation in flowsheet General: awake alert in bed looks comfortable much better than yesterday HEENT: Normocephalic, atraumatic, pupils round and equal, sclerae anicteric, no conjunctival injection, moist mucus membranes Lungs: Normal respiratory effort. Clear to auscultation bilaterally. No RRW Heart: Regular rate and rhythm, no murmurs. No JVD Abdomen: Soft, diffusely tender to palpation mid abdomen but much less so (has been tender to even light/feather touch) nondistended. BT normal Extremities: Warm, dry, well-perfused. 1+ lower extremity edema. Neuro: awake and oriented x 4, face symmetric, moves 4 extremities well Psych: Calm. Normal affect and behavior Results & Data Results & Data Vital Signs (Past 12 Hours) Vital Signs Temp Pulse Resp BP Pulse Ox O2 Del Method 07/02/23 15:10 36.7 C 66 18 87/48 L 95 Room Air 07/02/23 11:14 36.9 C 69 18 100/64 96 Room Air 07/02/23 07:49 36.9 C 72 18 97/59 L 95 Room Air Laboratory Results 07/02/23 06:58 07/02/23 06:58 PG Care Time/CCT Total # of Minutes Spent Total Time Spent with Patient: Total time spent is greater than 50% in coordination of care (as documented) at patient's floor/unit and/or counseling patient: Coding Level of Care Code 27395 SUB INP/OBS CARE MIN Diagnoses Pancreatitis K85.90 Hypertriglyceridemia E78.1 Poorly controlled type 2 diabetes mellitus E11.65 Neuropathy G62.9 JOYCE (generalized anxiety disorder) F41.1 Depression F32.9 Fibromyalgia M79.7 CAD (coronary artery disease) I25.10 GERD with esophagitis K21.00 Hyperlipidemia E78.5 Hypertension I10 IBS (irritable bowel syndrome) K58.9
[2023-07-02] MEDS ORDERED: Nursing to Pharmacy Communication SCH (22:15)
[2023-07-03 07:50] LABS: Hemoglobin 10.8 g/dl (12.0-16.0); Mean Corpuscular Hemoglobin 31.1 pg (25.0-34.0); Mean Corpuscular Hgb Conc 33.8 g/dL (32.0-36.0); Mean Corpuscular Volume 92.2 fL (80.0-100.0); Mean Platelet Volume 10.4 fL (9.4-12.4); Platelet Count 165 K/uL (130-400); RDW Coefficient of Variation 13.7 % (11.5-14.5); RDW Standard Deviation 45.7 fL (36.4-46.3); Red Blood Count 3.47 M/uL (4.20-5.40); White Blood Count 6.18 K/ul (4.8-10.8)
[2023-07-03] MEDS: INSULIN ASPART PER UNIT CHARGE SC SCH (08:05)
[2023-07-03 08:06] LABS: Albumin Globulin Ratio 1.3 (0.9-2); Albumin Level 2.8 gm/dl (3.4-5.0); BUN Creatinine Ratio 3.8 (10-20); Bilirubin,Total 0.4 mg/dl (0.2-1.0); Calcium 8.3 mg/dl (8.6-10.3); Creatinine Clr Calc Pharmacy 85.1 ml/min; Est GFR (Non-African American) 80.2 ml/min; Globulin 2.2 gm/dl (2.5-4.0); Potassium 4.3 mmol/L (3.5-5.1)
[2023-07-03 10:48] LABS: Influenza A virus by PCR Negative (Neg); Influenza B virus by PCR Negative (Neg); RSV by PCR Negative (Neg); SARS CoV2 RNA(COVID-19) Ceph NEGATIVE (Negative)
[2023-07-03 12:57] LABS: Appearance Urine Clear (Clear); Bilirubin Urine Negative (Negative); Blood Urine Negative (Negative); Color Urine Yellow; Glucose Urine UA Negative (Negative); Ketones Urine Negative (Negative); Leukocyte Esterase Urine Negative (Negative); Nitrite Urine Negative (Negative); Protein Urine Negative (Negative); Specific Gravity Urine 1.017 (1.000-1.030); Urobilinogen Urine Negative (Negative); pH Urine 5.5 (4.5-7.5)
--- NOTE | 2023-07-03 14:41 | Hospitalist Progress Note ---
Date of Service July 03, 2023 Assessment & Plan (1) Fever and chills: Plan: her ongoing abd pain along with fevers/chills is concerning. etiology not known. fever w/u today - COVID/flu/RSV negative. u/a negative. blood and urine cx's dispatched. recommended MRCP to r/o CBD stone or other ductal pathology causing pain. LFTs and lipase are normal today, however. if fevers persist then start empiric abx. consider full resp biofire panel. consider dedicated imaging of fluid collection in left groin (presumably left over from her inguinal hernia repair in 03/2023??). await MRCP and go from there. (2) Pancreatitis: Plan: elevated lipase and stranding near pancreatic head on CT at time of admission. thought 2nd to severe hypertriglyceridemia with initial trigs of 2068. Does not drink alcohol and has had cholecystectomy in the past. Had previous episode of acute pancreatitis thought related to medications (statin and HCTZ?). Father had pancreatic cancer. Brother from severe pancreatitis - issue with a "blocked duct." Sister has also had acute pancreatitis. initially was on insulin drip for high triglycerides; improved from -->1200-->800. Stopped insulin drip 06/29, started fenofibrate 06/30. Last trigs - TG 530. Since 06/29 she has been intolerant of liquids with ongoing abd pain and nausea. Now with fevers/chills overnight (see #1). If MRCP is unrevealing will obtain formal GI consultation for their opinion. (3) Abdominal pain: Plan: see #1, #2 above cont dilaudid prn for pain add carafate to her PPI (4) Hypertriglyceridemia: Plan: see above in #2 SEVERE at presentation (>2000) now on fibrate therapy (5) Poorly controlled type 2 diabetes mellitus: Plan: Uncontrolled severe hyperglycemia on presentation with BG>800 HbA1c 16% initially on insulin drip, then transitioned to glargine and novolog on 06/30/23. BSGs stable at this time. (6) Neuropathy: Plan: cont gabapentin 800mg QID (7) JOYCE (generalized anxiety disorder): Plan: cont sertraline, etc (8) Depression: Plan: cont sertraline, etc (9) Fibromyalgia: (10) CAD (coronary artery disease): Plan: Hx cardiac stent - noted cont metoprolol succ uncertain why she is not on aspirin or plavix (11) GERD with esophagitis: Plan: cont PPI BID add carafate QID in the event some of her upper abd pain is from the esophagus and/or stomach itself (12) Hypertension: Plan: losartan on hold remains on metoprolol succ at HS BPs controlled (13) IBS (irritable bowel syndrome): (14) S/P left inguinal hernia repair: Plan: on CT a/p there is a fluid collection in the left groin if fevers persist consider dedicated u/s of this region, and/or gen surg consult for their opinion (could this fluid collection be a developing abscess?), and/or simply pursuing IR drainage Plan DVT proph - lovenox daily although patient has LE edema, she otherwise appears intra-vascularly volume contracted (urine is concentrated, MM are dry, poor PO intake, etc) resume LR cautiously at 75cc/hr given the above Admission and Anticipated Discharge Date Admission Date: June 27, 2023 Subjective patient reports feeling cold all morning and overnight very tired poor appetite ongoing upper abdominal pain - RUQ and epigastric region severe at times somewhat reminds her of when she had her gall bladder out several years ago with trying to take liquids this causes more abdominal pain for her ongoing nausea but no vomiting 2 small stools over last 24 hours - loose and semi-formed no blood she denies any cough, congestion, dysuria urine is concentrated c/o LE edema c/o abdominal bloating tele overnight wnl Review of Systems Review of Systems: gen - fevers, chills, appetite loss, fatigue cv - no chest pain pulm - no cough or dyspnea GI - see HPI skin - no rash musculo - no joint swelling; chronic low back pain Physical Exam Physical Exam: gen - sleeping initially, easily awakens; sick appearing but not toxic mouth - MM very dry neck - no JVD heart - RRR, s1 s2, no murmur lungs - CTA b/l, slightly decreased BS bases abd - soft but very tender RUQ and high epigastric region; BS+; no HSM; no peritoneal signs; modestly distended ext - 1+ edema right, 1-2+ edema on left; pulses 2+ b/l skin - no rash musculo - no joint effusions/synovitis psych - a/o x 3 Results & Data Results & Data Vital Signs (Past 12 Hours) Vital Signs Temp Pulse Pulse Resp BP BP Pulse Ox 07/03/23 13:02 37.2 C 92 H 18 154/85 H 96 07/03/23 11:42 38.0 C H 83 18 97/60 L 95 07/03/23 08:00 62 07/03/23 08:00 07/03/23 07:48 37.6 C H 76 18 144/74 H 96 07/03/23 03:00 37.1 C 65 14 115/71 93 O2 Del Method 07/03/23 13:02 Room Air 07/03/23 11:42 Room Air 07/03/23 08:00 07/03/23 08:00 Room Air 07/03/23 07:48 Room Air 07/03/23 03:00 Room Air Laboratory Results Laboratory Results - last 24 hr 07/03/23 07/03/23 07/03/23 07:31 07:34 09:50 WBC 6.18 RBC 3.47 L Hgb 10.8 L Hct 32.0 L MCV 92.2 MCH 31.1 MCHC 33.8 RDW Std Deviation 45.7 RDW Coeff of [place] 13.7 Plt Count 165 MPV 10.4 Sodium 139 Potassium 4.3 Chloride 113 H Carbon Dioxide 24 Anion Gap 2 L BUN 3 L Creatinine 0.79 Est Cr Clr Drug Dosing 85.1 Est GFR ( Amer) 93.0 Est GFR (Non-Af Amer) 80.2 BUN/Creatinine Ratio 3.8 L Glucose 87 POC Glucose 92 Lactate Calcium 8.3 L Total Bilirubin 0.4 AST 23 ALT 26 Alkaline Phosphatase 98 Total Protein 5.0 L Albumin 2.8 L Globulin 2.2 L Albumin/Globulin Ratio 1.3 Lipase Urine Color Urine Appearance Urine pH Ur Specific [place] Urine Protein Urine Glucose (UA) Urine Ketones Urine Blood Urine Nitrite Urine Bilirubin Urine Urobilinogen Ur Leukocyte Esterase SARS-CoV-2 (PCR) NEGATIVE Influenza Type A (PCR) Negative Influenza Type B (PCR) Negative RSV (RT-PCR) Negative 07/03/23 07/03/23 07/03/23 11:41 12:37 12:44 WBC RBC Hgb Hct MCV MCH MCHC RDW Std Deviation RDW Coeff of [place] Plt Count MPV Sodium Potassium Chloride Carbon Dioxide Anion Gap BUN Creatinine Est Cr Clr Drug Dosing Est GFR ( Amer) Est GFR (Non-Af Amer) BUN/Creatinine Ratio Glucose POC Glucose 96 Lactate 1.2 Calcium Total Bilirubin AST ALT Alkaline Phosphatase Total Protein Albumin Globulin Albumin/Globulin Ratio Lipase 23 Urine Color Urine Appearance Urine pH Ur Specific [place] Urine Protein Urine Glucose (UA) Urine Ketones Urine Blood Urine Nitrite Urine Bilirubin Urine Urobilinogen Ur Leukocyte Esterase SARS-CoV-2 (PCR) Influenza Type A (PCR) Influenza Type B (PCR) RSV (RT-PCR) 07/03/23 07/03/23 07/03/23 12:50 16:15 21:06 WBC RBC Hgb Hct MCV MCH MCHC RDW Std Deviation RDW Coeff of [place] Plt Count MPV Sodium Potassium Chloride Carbon Dioxide Anion Gap BUN Creatinine Est Cr Clr Drug Dosing Est GFR ( Amer) Est GFR (Non-Af Amer) BUN/Creatinine Ratio Glucose POC Glucose 86 105 H Lactate Calcium Total Bilirubin AST ALT Alkaline Phosphatase Total Protein Albumin Globulin Albumin/Globulin Ratio Lipase Urine Color Yellow Urine Appearance Clear Urine pH 5.5 Ur Specific [place] 1.017 Urine Protein Negative Urine Glucose (UA) Negative Urine Ketones Negative Urine Blood Negative Urine Nitrite Negative Urine Bilirubin Negative Urine Urobilinogen Negative Ur Leukocyte Esterase Negative SARS-CoV-2 (PCR) Influenza Type A (PCR) Influenza Type B (PCR) RSV (RT-PCR) PG Care Time/CCT Total # of Minutes Spent Total Time Spent with Patient: Total time spent is greater than 50% in coordination of care (as documented) at patient's floor/unit and/or counseling patient: Coding Level of Care Code 47189 SUB INP/OBS CARE 3/50MIN Diagnoses Fever and chills R50.9 Pancreatitis K85.90 Abdominal pain R10.9 Hypertriglyceridemia E78.1 Poorly controlled type 2 diabetes mellitus E11.65 Neuropathy G62.9 JOYCE (generalized anxiety disorder) F41.1 Depression F32.9 Fibromyalgia M79.7 CAD (coronary artery disease) I25.10 GERD with esophagitis K21.00 Hypertension I10 IBS (irritable bowel syndrome) K58.9 S/P left inguinal hernia repair Z98.890; Z87.19
[2023-07-03] MEDS: LACTATED RINGER'S 1,000 ML IV SCH (15:01)
--- NOTE | 2023-07-03 17:41 | Magnetic Resonance Report ---
MR MRCP CLINICAL HISTORY: pancreatitis, severe RUQ pain; CBD stone?? TECHNIQUE: Multiplanar multisequence MR images of the abdomen were obtained, as per MRCP protocol. . COMPARISON: Comparison is made to MRA abdomen pelvis 10/31/[address] abdomen pelvis 07/01/2023 FINDINGS: Lower chest: Small bilateral pleural effusions. Liver: Unremarkable. No focal lesions are seen. Gallbladder and biliary tree: No calcified gallstones. Normal caliber wall. No intra- or extrahepatic biliary ductal dilation. Pancreas: Unremarkable, no focal lesions. Spleen: Splenule is incidentally noted. Adrenals: Unremarkable. Kidneys and ureters: Unremarkable. Bowel: Unremarkable. Lymph nodes Retroperitoneal: Unremarkable. Mesenteric: Unremarkable. Peritoneum: Normal Vessels: Unremarkable. Abdominal wall: Old scarring in the midline abdomen, likely postsurgical. Body wall edema is noted. Bones: Unremarkable. IMPRESSION: 1. No acute abnormalities. No acute abnormality is seen, in particular no evidence of pancreatitis i n this patient with history of recent pancreatitis. No evidence of acute peripancreatic collections. 2. Body wall edema is nonspecific and may be secondary to fluid overload. ACT 112: Negative or not required by law. Electronically signed by: Paco Hester M.D. 07/03/2023 5:39 PM
[2023-07-03] MEDS: SUCRALFATE 1 GM/10 ML UDC PO SCH (20:19)
[2023-07-04] MEDS: ACETAMINOPHEN 500 MG TAB PO PRN (00:57)
[2023-07-04 05:55] LABS: A calco-baum cmplx NotReported Not Detected (NotDetected); Bact fragilis Not Reported Not Detected (NotDetected); Blood Culture Id Panel See PCR Comment (NotDetected); C auris Not Reported Not Detected (NotDetected); Calbicans Not Reported Not Detected (NotDetected); Candida glabrata Not Reported Not Detected (NotDetected); Candida krusei Not Reported Not Detected (NotDetected); Cneoformans/gatti Not Reported Not Detected (NotDetected); Cparapsilosis Not Reported Not Detected (NotDetected); E cloacae compx Not Reported Not Detected (NotDetected); Efaecalis Not Reported Not Detected (NotDetected); Efaecium Not Reported Not Detected (NotDetected); Enterobacterales Not Reported Not Detected (NotDetected); Escherichia coli Not Reported Not Detected (NotDetected); H influenzae Not Reported Not Detected (NotDetected); K aerogenes Not Reported Not Detected (NotDetected); Koxytoca Not Reported Not Detected (NotDetected); Kpneumoniae grp Not Reported Not Detected (NotDetected); Lmonocyt Not Reported Not Detected (NotDetected); N meningitidis Not Reported Not Detected (NotDetected); P aeruginosa Not Reported Not Detected (NotDetected); Proteus spp Not Reported Not Detected (NotDetected); Salmonella spp Not Reported Not Detected (NotDetected); Smarcescens Not Reported Not Detected (NotDetected); Staph lugdunensis Not Reported Not Detected (NotDetected); Staph spp. Not Reported DETECTED (NotDetected); Staphaureus Not Reported Not Detected (NotDetected); Staphepi Not Reported DETECTED (NotDetected); Staphylococcus spp. DETECTED (NotDetected); Stenmaltophilia Not Reported Not Detected (NotDetected); Strep agal(GrpB) Not Reported Not Detected (NotDetected); Strep pneum Not Reported Not Detected (NotDetected); Strep pyog (GrpA) Not Reported Not Detected (NotDetected); Strep spp Not Reported Not Detected (NotDetected); mecAC Resistant Gene Not Detected (NotDetected)
[2023-07-04 06:45] LABS: Staphylococcus epidermidis DETECTED (NotDetected)
[2023-07-04 07:24] LABS: Basophils # (auto) 0.03 K/uL (0.00-0.20); Basophils % (auto) 0.5 %; Eosinophils # (auto) 0.12 K/uL (0.00-0.50); Eosinophils % (auto) 2.1 %; Hematocrit (blood only) 31.4 % (37.0-47.0); Hemoglobin 10.4 g/dl (12.0-16.0); Immature Granulocytes # (auto) 0.04 K/uL (0.01-0.20); Immature Granulocytes % (auto) 0.7 %; Lymphocytes # (auto) 1.18 K/uL (1.20-3.40); Lymphocytes % (auto) 20.8 %; Mean Corpuscular Hemoglobin 31.2 pg (25.0-34.0); Mean Corpuscular Hgb Conc 33.1 g/dL (32.0-36.0); Mean Corpuscular Volume 94.3 fL (80.0-100.0); Mean Platelet Volume 10.3 fL (9.4-12.4); Monocytes # (auto) 0.55 K/uL (0.11-0.59); Monocytes % (auto) 9.7 %; Neutrophils # (auto) 3.76 K/uL (1.40-6.50); Neutrophils % (auto) 66.2 %; Platelet Count 164 K/uL (130-400); RDW Coefficient of Variation 13.7 % (11.5-14.5); RDW Standard Deviation 47.1 fL (36.4-46.3); Red Blood Count 3.33 M/uL (4.20-5.40); White Blood Count 5.68 K/ul (4.8-10.8)
[2023-07-04] MEDS ORDERED: VANCOMYCIN CONSULT ACTIVE PRN (07:57)
[2023-07-04 07:58] LABS: BUN Creatinine Ratio 6.6 (10-20); Calcium 8.1 mg/dl (8.6-10.3); Creatinine Clr Calc Pharmacy 89.2 ml/min; Est GFR (African American) 97.4 ml/min; Est GFR (Non-African American) 84.1 ml/min; Magnesium 1.5 mg/dl (1.7-2.4); Potassium 4.2 mmol/L (3.5-5.1)
[2023-07-04] MEDS: VANCOMYCIN HCL 2,000 MG in SODIUM CHLORIDE 0.9% 500 ML IV ONE (08:33)
[2023-07-04] MEDS: MAGNESIUM SULFATE / D5W 1 GM/100 ML BAG IV SCH (09:37)
--- NOTE | 2023-07-04 10:21 | XRay Report ---
XR chest 2V PA/lateral HISTORY: 62 years-old Female fevers, chills; eval pneumonia acute shortness of breath with fever and chills COMPARISON: 06/27/2023 TECHNIQUE: PA and lateral views of the chest FINDINGS: Cardiac silhouette is normal in size. Pulmonary vascular congestion with interstitial coarsening. Sma ll pleural effusions with mild bibasilar densities. No pneumothorax. Bones appear grossly intact. Cer vical spinal fusion hardware. IMPRESSION: Mild pulmonary edema with small pleural effusions and mild bibasilar opacities suggestive of atelecta sis. ACT 112: Negative or not required by law. The above report was generated using voice recognition software. It may contain grammatical, syntax o r spelling errors. Electronically signed by: Hayden Moody M.D. 07/04/2023 10:19 AM
--- NOTE | 2023-07-04 10:21 | Pharmacy Report ---
Pharmacy PK ABX Note - Date of Service July 04, 2023 - Assessment and Plan Assessment 62 year old F receiving vancomycin for treatment of gastrointestinal infection/bacteremia. Pertinent microbiologic data includes: blood culture growing GPCs in clusters (2/4 anaerobic bottles) and Gram positive bacilli (1/4 anaerobic bottle) BCID resulted staph epidermidis, no MecA resistance. Patient was febrile overnight, WBC WNL, and renal function normal. Day # 1 of antimicrobial therapy. Plan Vancomycin * Loading dose: 2000 mg IV x 1 * Maintenance dose: 750 mg IV every 8 hours starting 07/03 @ 2200 * Regimen is predicted to achieve target AUC/FUENTES of 400-600 mg/L.hr * Trough level ordered for: 07/06/23 with AM labs Pharmacy will continue to follow and will adjust dose/frequency as necessary. Thank you. Pharmacy has transitioned to AUC monitoring for vancomycin. AUC/FUENTES is the preferred PK/PD target and is associated with decreased risk of nephrotoxicity compared to traditional trough targets.
--- NOTE | 2023-07-04 10:25 | Ultrasound Report ---
ABDOMINAL ULTRASOUND, LEFT LOWER QUADRANT HISTORY: ?left groin abscess/seroma? (seen on CT a/p). COMPARISON: CT 07/01/2023 FINDINGS: Heterogeneity of the left inguinal tissue is redemonstrated at the site of incision. There is a compl ex hypoechoic linear widened than tall structure within the subcutaneous tissues measuring 4.9 x 4.6 x 1.7 cm, unchanged from the comparison CT. IMPRESSION: 4.9 cm complex subcutaneous incisional collection appears unchanged from the comparison CT. Different ial considerations include a hematoma, abscess or complex seroma. ACT 112: Negative or not required by law. Electronically signed by: Hayden Moody M.D. 07/04/2023 10:23 AM
--- NOTE | 2023-07-04 11:33 | Hospitalist Progress Note ---
Date of Service July 04, 2023 Assessment & Plan (1) Groin fluid collection: Plan: as seen on CT a/p left groin near previous inguinal hernia repair operative site dedicated u/s obtained - complex fluid collection present, about 5cm in size I spoke with on-call surgery, and then subsequently Dr Red who did her original surgery in 03/2023 all are in agreement that the sterility of the fluid collection is in question and should be drained if possible to that end I spoke with IR who felt they could access the collection with a needle for drainage IR drainage ordered send gram stain and culture send cytologies if this fluid collection is indeed infected then this is the likely source of her bacteremia if the collection is sterile then will need to find a different source for her fever & bacteremia (lumbar spine due to chronic back pain, etc) (2) Bacteremia: Plan: 04/29 blood cx's positive - 1 with GPC clusters, the other with GPC clusters and GPR start IV vanco now repeat blood cultures x 2 sets in am tomorrow source - #1?? see #1 above for further discussion (3) S/P left inguinal hernia repair: Plan: on CT a/p there is a fluid collection in the left groin dedicated u/s obtained with 5cm complex appearing fluid collection IR drainage ordered Dr Red performed index surgery in March - will formally consult him in am (4) Fever and chills: Plan: 2nd to #2 above follow cultures repeat blood cx's in am tomorrow other work-up --> COVID/flu/RSV neg, MRCP neg, u/a neg, urine cx thus far neg, etc (5) Pancreatitis: Plan: elevated lipase and stranding near pancreatic head on CT at time of admission. thought 2nd to severe hypertriglyceridemia with initial trigs of 2068. Does not drink alcohol and has had cholecystectomy in the past. Had previous episode of acute pancreatitis thought related to medications (statin and HCTZ?). Father had pancreatic cancer. Brother from severe pancreatitis - issue with a "blocked duct." Sister has also had acute pancreatitis. initially was on insulin drip for high triglycerides; improved from -->1200-->800. Stopped insulin drip 06/29, started fenofibrate 06/30. Last trigs - TG 530. MRCP negative for CBD stone or pancreatic duct abnormalities. still with upper abdominal pain .... due to resolving pancreatitis? other? can't imagine the upper abd pain is from the left groin fluid collection. asked GI for consultation for their opinion re: the ongoing upper abd pain. (6) Abdominal pain: Plan: see above cont dilaudid prn for pain - increase to 1mg doses added carafate to her PPI (7) Hypertriglyceridemia: Plan: see above SEVERE at presentation (>2000) now on fibrate therapy (8) Poorly controlled type 2 diabetes mellitus: Plan: Uncontrolled severe hyperglycemia on presentation with BG>800 HbA1c 16% initially on insulin drip, then transitioned to glargine and novolog on 06/30/23. BSGs stable/acceptable at this time. (9) Neuropathy: Plan: cont gabapentin 800mg QID (10) JOYCE (generalized anxiety disorder): Plan: cont sertraline, etc (11) Depression: Plan: cont sertraline, etc (12) Fibromyalgia: Plan: noted cont gabapentin, other meds (13) CAD (coronary artery disease): Plan: Hx cardiac stent - noted cont metoprolol succ uncertain why she is not on aspirin or plavix at baseline (14) GERD with esophagitis: Plan: cont PPI BID added carafate QID in the event some of her upper abd pain is from the esophagus and/or stomach itself (15) Hypertension: Plan: losartan on hold remains on metoprolol succ at HS BPs controlled / acceptable (16) IBS (irritable bowel syndrome): Plan: noted Plan DVT proph - lovenox daily CXR this am with mild pulm edema she has LE edema and has gained considerable fluid weight since admission will stop IV fluids will likely need gentle diuresis very complex care coordination today - discussions held with GI, gen surg (x 2 providers), IR, pt's daughter by phone, etc total care time today over multiple visits, multiple conversations/phone calls, etc - 90 minutes Admission and Anticipated Discharge Date Admission Date: June 27, 2023 Subjective overnight had very high fever and severe chills "it's not a good day" she feels very poorly weak, fatigued, tired continued mild nausea but no vomiting continued upper abd pain with respect to her surgical site in the left groin - about 1 month post-op she noted the area became more swollen she has had on/off pain in this location since the surgery the incision has healed well she thought the amount of pain she has had was simply normal pain during the post-op recovery period tolerating full liquids despite her abd pain we discussed her + blood cultures and the ramifications of such Review of Systems Review of Systems: cv - no chest pain pulm - no cough or dyspnea GI - location of abd pain in the upper abdomen has not changed musculo - NO CHANGE in chronic low back pain Physical Exam Physical Exam: gen - having rigors, looks poorly and sick; but awake/alert mouth - MM still very dry neck - no JVD heart - RRR, s1 s2, no murmur lungs - CTA b/l abd - soft but still very tender RUQ and high epigastric region; BS+; no HSM; no peritoneal signs; left groin region - chaperoned by nursing staff - incision clean/dry/well-healed; the left groin is modestly larger than the right groin; there is a palpable fluid collection vs underlying mesh; the area is tender to palpation ext - 1+ edema right, 1-2+ edema on left; pulses 2+ b/l skin - no rash psych - a/o x 3 Results & Data Results & Data Vital Signs (Past 12 Hours) Vital Signs Temp Pulse Resp BP Pulse Ox O2 Del Method 07/04/23 07:08 37.1 C 66 18 130/79 90 Room Air 07/04/23 03:33 37.3 C 67 16 103/62 93 Room Air Laboratory Results Laboratory Results - last 24 hr 07/03/23 07/03/23 07/03/23 11:41 12:37 12:44 WBC RBC Hgb Hct MCV MCH MCHC RDW Std Deviation RDW Coeff of [place] Plt Count MPV Immature Gran % (Auto) Neut % (Auto) Lymph % (Auto) [place] % (Auto) Eos % (Auto) Baso % (Auto) Neut # (Auto) Lymph # (Auto) [place] # (Auto) Eos # (Auto) Baso # (Auto) Immature Gran # (Auto) Sodium Potassium Chloride Carbon Dioxide Anion Gap BUN Creatinine Est Cr Clr Drug Dosing Est GFR ( Amer) Est GFR (Non-Af Amer) BUN/Creatinine Ratio Glucose POC Glucose 96 Lactate 1.2 Calcium Magnesium Lipase 23 Urine Color Urine Appearance Urine pH Ur Specific [place] Urine Protein Urine Glucose (UA) Urine Ketones Urine Blood Urine Nitrite Urine Bilirubin Urine Urobilinogen Ur Leukocyte Esterase Staphylococcus sp PCR DETECTED A mecA/C-Methicil Resis Gene Not Detected Staph epidermidis (PCR) DETECTED A Bld Cult ID Panel PCR See PCR Comment 07/03/23 07/03/23 07/03/23 12:50 16:15 21:06 WBC RBC Hgb Hct MCV MCH MCHC RDW Std Deviation RDW Coeff of [place] Plt Count MPV Immature Gran % (Auto) Neut % (Auto) Lymph % (Auto) [place] % (Auto) Eos % (Auto) Baso % (Auto) Neut # (Auto) Lymph # (Auto) [place] # (Auto) Eos # (Auto) Baso # (Auto) Immature Gran # (Auto) Sodium Potassium Chloride Carbon Dioxide Anion Gap BUN Creatinine Est Cr Clr Drug Dosing Est GFR ( Amer) Est GFR (Non-Af Amer) BUN/Creatinine Ratio Glucose POC Glucose 86 105 H Lactate Calcium Magnesium Lipase Urine Color Yellow Urine Appearance Clear Urine pH 5.5 Ur Specific [place] 1.017 Urine Protein Negative Urine Glucose (UA) Negative Urine Ketones Negative Urine Blood Negative Urine Nitrite Negative Urine Bilirubin Negative Urine Urobilinogen Negative Ur Leukocyte Esterase Negative Staphylococcus sp PCR mecA/C-Methicil Resis Gene Staph epidermidis (PCR) Bld Cult ID Panel PCR 07/04/23 07/04/23 07/04/23 06:36 07:09 11:18 WBC 5.68 RBC 3.33 L Hgb 10.4 L Hct 31.4 L MCV 94.3 MCH 31.2 MCHC 33.1 RDW Std Deviation 47.1 H RDW Coeff of [place] 13.7 Plt Count 164 MPV 10.3 Immature Gran % (Auto) 0.7 Neut % (Auto) 66.2 Lymph % (Auto) 20.8 [place]ke % (Auto) 9.7 Eos % (Auto) 2.1 Baso % (Auto) 0.5 Neut # (Auto) 3.76 Lymph # (Auto) 1.18 L [place]ke # (Auto) 0.55 Eos # (Auto) 0.12 Baso # (Auto) 0.03 Immature Gran # (Auto) 0.04 Sodium 138 Potassium 4.2 Chloride 109 H Carbon Dioxide 26 Anion Gap 3 BUN 5 L Creatinine 0.76 Est Cr Clr Drug Dosing 89.2 Est GFR ( Amer) 97.4 Est GFR (Non-Af Amer) 84.1 BUN/Creatinine Ratio 6.6 L Glucose 86 POC Glucose 82 159 H Lactate Calcium 8.1 L Magnesium 1.5 L Lipase Urine Color Urine Appearance Urine pH Ur Specific [place] Urine Protein Urine Glucose (UA) Urine Ketones Urine Blood Urine Nitrite Urine Bilirubin Urine Urobilinogen Ur Leukocyte Esterase Staphylococcus sp PCR mecA/C-Methicil Resis Gene Staph epidermidis (PCR) Bld Cult ID Panel PCR PG Care Time/CCT Total # of Minutes Spent Total Time Spent with Patient: Total time spent is greater than 50% in coordination of care (as documented) at patient's floor/unit and/or counseling patient: Prolonged Care Time Prolonged Care Time: Yes Total Prolonged Care Time: 90 Coding Level of Care Code 77207 SUB INP/OBS CARE 3/50MIN (25 - SIGNIFICANT, SEPARATELY IDENTIFIABLE ) Diagnoses Groin fluid collection R18.8 Bacteremia R78.81 S/P left inguinal hernia repair Z98.890; Z87.19 Fever and chills R50.9 Pancreatitis K85.90 Abdominal pain R10.9 Hypertriglyceridemia E78.1 Poorly controlled type 2 diabetes mellitus E11.65 Neuropathy G62.9 JOYCE (generalized anxiety disorder) F41.1 Depression F32.9 Fibromyalgia M79.7 CAD (coronary artery disease) I25.10 GERD with esophagitis K21.00 Hypertension I10 IBS (irritable bowel syndrome) K58.9 Additional Codes Prolonged Care Time - Prolonged Care Time: Yes ([id number])
[2023-07-04] MEDS: HYDROmorphone INJ 0.5 MG/0.5 ML SYR IV PRN (12:26)
--- NOTE | 2023-07-04 12:43 | Gastrointestinal Consultation ---
Date of Consultation July 04, 2023 Assessment & Plan (1) Abdominal pain: (2) Acute pancreatitis: Plan Pancreatitis has seemed to have resolved. lipase and imaging unremarkable. she does have a history of fibromyalgia, and there is a question if this plays a factor in her abdominal pain. It is unclear what is causing her fevers though at this point would not suspect its from her pancreas. discussed case with Dr. Jones who also saw and examined patient. - recommend supportive care. - continue with protonix 40mg BID. - would recommend better control of triglycerides which likely have contributed to pancreatitis. Supervising Physician Co-Signing Physician Notes Agree with LYNN Rocha as above Interviewed and examined patient and agree with above Abd: Soft, Tender epigastric area, ND, +BS Continue current therapy and supportive care Will need Triglyceride level addressed as levels this high can lead to pancreatitis History of Present Illness Reason for Consultation: recurrent pancreatitis, ongoing pain and fevers. Requesting Physician: Gm Flowers MD Attending Physician: Gm Flowers MD History of Present Illness Patient is a 62 year old female with one prior episode of pancreatitis last year. she presented to the ED with complaints of abdominal pain that has been ongoing for several weeks. upon work up she had elevated lipase and CT suggestive of pancreatitis. triglycerides were elevated over 1999. no etoh. She has had ongoing issues with pain despite normalization of lipase and repeat imaging showing no pancreatitis. she has had fevers as well as blood cultures positive for staph. she denies any nausea, vomiting, changes in bowels, blood in stools, or melena. EGD 11/2022 gastric polyps, gastritis. Colonoscopy 11/2022 colon polyp, non bleeding internal hemorrhoids. 07/03/23 lipase 23, lfts wnl. 07/03/23 mrcp no pancreatitis and no acute abnormality. Allergies Allergy/AdvReac Type Severity Reaction Status Date / Time Iodinated Contrast Media Allergy Severe STOP Verified 04/04/23 08:49 BREATHING bupropion [From Wellbutrin] Allergy Mild Hallucinati Verified 04/04/23 08:49 ng divalproex sodium Allergy Mild Vomiting Verified 04/04/23 08:49 [From Depakote] ketorolac [From Toradol] Allergy Mild can not Verified 04/04/23 08:49 void metronidazole Allergy Mild VOMITS Verified 04/04/23 08:49 nitrofurantoin Allergy Mild VOMITS Verified 04/04/23 08:49 pregabalin [From Lyrica] Allergy Mild Hallucinati Verified 04/04/23 08:49 ng strawberry Allergy Mild Hives Verified 04/04/23 08:49 tramadol Allergy Mild can not Verified 04/04/23 08:49 void ziprasidone [From Geodon] Allergy Mild Vomiting Verified 04/04/23 08:49 Home Medications Medication Instructions Recorded Confirmed Type insulin lispro 100 unit/mL 1 sliding scale dose subcut TIDM 10/30/22 06/27/23 History subcutaneous pen (Humalog KwikPen (U-100) Insulin) loperamide 2 mg capsule 2 mg PO BID PRN Diarrhea 12/04/22 06/27/23 History pantoprazole 40 mg tablet,delayed 40 mg PO BID #60 tabs 12/12/22 06/27/23 Rx release gabapentin 800 mg tablet 800 mg PO QID #120 tabs 01/25/23 06/27/23 Rx metoprolol succinate 25 mg 37.5 mg (1.5 x 25 mg) PO HS #45 01/25/23 06/27/23 Rx tablet,extended release 24 hr tabs ondansetron 4 mg disintegrating 4 mg translingual Q8H PRN Nausea 01/25/23 06/27/23 Rx tablet #60 tabs docusate sodium 100 mg capsule 100 mg PO BID #60 caps 03/28/23 06/27/23 Rx insulin glargine 100 unit/mL (3 15 unit (0.15 mL) subcut BID #15 mL 03/28/23 06/27/23 Rx mL) subcutaneous pen (Lantus Solostar U-100 Insulin) sennosides 8.6 mg tablet (Senokot) 17.2 mg (2 x 8.6 mg) PO QAM #60 03/28/23 06/27/23 Rx tabs losartan 25 mg tablet 25 mg PO QAM #90 tabs 03/29/23 06/27/23 Rx sertraline 50 mg tablet 150 mg (3 x 50 mg) PO HS 90 days 03/29/23 06/27/23 Rx #270 tabs trazodone 100 mg tablet 100 mg PO HS #90 tabs 04/12/23 06/27/23 Rx blood-glucose sensor (Dexcom G7 #3 ea 05/11/23 06/27/23 Rx Sensor device) oxycodone-acetaminophen 7.5 mg-325 1 tab PO Q8H PRN Pain 30 days #90 06/25/23 06/27/23 Rx mg tablet tabs baclofen 10 mg tablet 10 mg PO TID PRN Muscle Spasm 06/27/23 06/27/23 History diclofenac sodium 1 % topical gel 4 g EXT QID PRN as directed 06/27/23 06/27/23 History (Voltaren Arthritis Pain) Patient History Medical History (Updated 07/04/23 @ 11:32 by Gm Flowers MD) Abdominal pain Hypertriglyceridemia Incarcerated left inguinal hernia Fever Chronic back pain History of chest pain Fibromyalgia History of pulmonary embolism roughly 15yrs ago--unknown cause--no blood thinners COVID-19 11/08/2022 @ [facility]--head cold symptoms, slight cough--no symptoms now IBS (irritable bowel syndrome) TIA (transient ischemic attack) "more than 15yrs ago"--unknown cause, no deficits--no neurologist Hypertension Hyperlipidemia GERD with esophagitis Diabetes IDDM Depression CAD (coronary artery disease) Surgical History (Updated 07/04/23 @ 05:51 by Gm Flowers MD) S/P left inguinal hernia repair (03/26/23) Open Left Inguinal Hernia Repair with Mesh(Left) - Pollo Red, History of fusion of cervical spine normal ROM History of repair of right rotator cuff History of bladder suspension procedure History of laparoscopy lysis of adhesions removal History of esophagogastroduodenoscopy (EGD) History of colonoscopy History of tooth extraction all teeth removed Hx of cholecystectomy H/O tubal ligation H/O: hysterectomy bhupendra bso H/O hernia repair x2 S/P coronary artery stent placement 5yrs ago @ [facility] [place]--1 stent total H/O cardiac catheterization x1 roughly 5 yrs ago @ [facility]--1 stent placed--follows with Dr. Moy Family History Mother Respiratory arrest Coronary heart disease Hypertension Father Cancer Sister Diabetes Multiple sclerosis Other No family history of adverse response to anesthesia Social History Smoking Status: Former smoker packs per day: 1; Second Hand Exposure: No; Do You Dip or Chew Tobacco: No; Hx Alcohol Use: No Hx Substance Use: No Preferred Language: Greenlandic Communication Ability: Effective Power Shear Operator Required: No Beliefs That Will Affect Care: None Current Living Situation: Alone Feels Safe at Home: Yes Review of Systems Review of Systems: All systems reviewed & are unremarkable except as noted in HPI & below Physical Exam Constitutional: WD/WN, vitals as above Respiratory: normal respiratory effort, lungs clear to auscultation Cardiovascular: RRR, no murmur, no edema Gastrointestinal (Abdomen): mild epigastric tenderness, no guarding, soft. normal bowel sounds. Skin: no rashes, warm and dry Psychiatric: Orientation: alert and oriented x 3 Affect: euthymic affect Results & Data Vital Signs (Past 12 Hours) Vital Signs Temp Pulse Resp BP Pulse Ox O2 Del Method 07/04/23 10:47 99.3 F 82 20 125/78 94 Room Air 07/04/23 07:08 98.8 F 66 18 130/79 90 Room Air 07/04/23 03:33 99.1 F 67 16 103/62 93 Room Air Coding Level of Care Code 70360 IN/OBS CONSULT LVL 3,45M Diagnoses Abdominal pain R10.9 Acute pancreatitis K85.90 Acute pancreatitis complication: unspecified Pancreatitis type: unspecified pancreatitis type (2) Acute pancreatitis Acute pancreatitis complication: unspecified Pancreatitis type: unspecified pancreatitis type Qualified Code(s): K85.90 - Acute pancreatitis without necrosis or infection, unspecified
--- NOTE | 2023-07-04 13:43 | Ultrasound Report ---
Ultrasound-guided left groin fluid collection aspiration INDICATION: Bacteremia; complex loculated left groin fluid collection PROCEDURE: Procedure and risks were explained. Informed consent was obtained. A final timeout was com pleted. The left groin was prepped and draped in sterile fashion. 1% buffered lidocaine was utilized for skin anesthesia. Utilizing ultrasound guidance, a 20-gauge spinal needle was advanced into the complex loculated left groin fluid collection. Ultrasound images were obtained. Approximately 1 mL of bloody purulent appear ing fluid was aspirated and sent to the lab. The needle was removed and Band-Aid applied. The patient tolerated the procedure well. IMPRESSION: Left groin fluid collection aspiration as above. Performed, dictated, and signed by Pollo Williamson PA-C; to be co-signed by Dr. Christopher Alejandro. Electronically signed by: Christopher Alejandro M.D. 07/04/2023 5:17 PM
[2023-07-04] MEDS: fentaNYL citrate PF 100 MCG/2 ML VIAL ONE (13:49)
[2023-07-04] MEDS: IBUPROFEN 600 MG TAB PO STA (15:49)
[2023-07-04] MEDS: VANCOMYCIN HCL 750 MG in SODIUM CHLORIDE 0.9% 250 ML IV SCH (22:38)
[2023-07-05 07:01] LABS: BUN Creatinine Ratio 8.2 (10-20); Calcium 7.7 mg/dl (8.6-10.3); Creatinine Clr Calc Pharmacy 93.2 ml/min; Est GFR (African American) 102.3 ml/min; Est GFR (Non-African American) 88.3 ml/min; Magnesium 1.6 mg/dl (1.7-2.4); Potassium 3.8 mmol/L (3.5-5.1)
[2023-07-05] MEDS: MAGNESIUM SULFATE / D5W 1 GM/100 ML BAG IV SCH (08:34)
--- NOTE | 2023-07-05 09:05 | Surgery Consultation ---
Date of Consultation July 05, 2023 Assessment & Plan (1) Bacteremia: With no other definitive source I have to presume that the bacteremia is from the left groin surgical site. This was likely the source of her elevated blood sugars. She is currently stable. I am going to recommend that we get her fevers under control and await the culture results. I would like her on oral antibiotics at discharge for several weeks. Once we get the acute infection under better control I will then likely perform an explant of the mesh electively as an outpatient perhaps in 2 to 3 weeks. We will continue to follow along. (2) Groin fluid collection: (3) Abdominal pain: (4) S/P left inguinal hernia repair: (5) Acute pancreatitis: (6) Poorly controlled type 2 diabetes mellitus: History of Present Illness Attending Physician: Gm Flowers MD History of Present Illness 62 y/o presented approx a week ago with epigastric pain and a blood sugar of over 800. she was diagnosed with pancreatitis /had an elevated lipase. Blood cx's this admission were + for gram + cocci without a definite source. She is s/p open inguinal hernia repair with mesh by myself on 03/26/23. She had an Uncomplicated course. She does admit to some inguinal discomfort over the groin region but never had any redness warmth or drainage. Imaging this admission does show a complex collection at the surgical site in the groin potential hematoma versus seroma versus abscess. Interventional radiology was able to get several cc of aspirate which they were concerned was purulent. Currently it is being cultured. There were some WBCs but no organisms seen. She does have fevers. Allergies Allergy/AdvReac Type Severity Reaction Status Date / Time Iodinated Contrast Media Allergy Severe STOP Verified 04/04/23 08:49 BREATHING bupropion [From Wellbutrin] Allergy Mild Hallucinati Verified 04/04/23 08:49 ng divalproex sodium Allergy Mild Vomiting Verified 04/04/23 08:49 [From Depakote] ketorolac [From Toradol] Allergy Mild can not Verified 04/04/23 08:49 void metronidazole Allergy Mild VOMITS Verified 04/04/23 08:49 nitrofurantoin Allergy Mild VOMITS Verified 04/04/23 08:49 pregabalin [From Lyrica] Allergy Mild Hallucinati Verified 04/04/23 08:49 ng strawberry Allergy Mild Hives Verified 04/04/23 08:49 tramadol Allergy Mild can not Verified 04/04/23 08:49 void ziprasidone [From Geodon] Allergy Mild Vomiting Verified 04/04/23 08:49 Home Medications Medication Instructions Recorded Confirmed Type insulin lispro 100 unit/mL 1 sliding scale dose subcut TIDM 10/30/22 06/27/23 History subcutaneous pen (Humalog KwikPen (U-100) Insulin) loperamide 2 mg capsule 2 mg PO BID PRN Diarrhea 12/04/22 06/27/23 History pantoprazole 40 mg tablet,delayed 40 mg PO BID #60 tabs 12/12/22 06/27/23 Rx release gabapentin 800 mg tablet 800 mg PO QID #120 tabs 01/25/23 06/27/23 Rx metoprolol succinate 25 mg 37.5 mg (1.5 x 25 mg) PO HS #45 01/25/23 06/27/23 Rx tablet,extended release 24 hr tabs ondansetron 4 mg disintegrating 4 mg translingual Q8H PRN Nausea 01/25/23 06/27/23 Rx tablet #60 tabs docusate sodium 100 mg capsule 100 mg PO BID #60 caps 03/28/23 06/27/23 Rx insulin glargine 100 unit/mL (3 15 unit (0.15 mL) subcut BID #15 mL 03/28/23 06/27/23 Rx mL) subcutaneous pen (Lantus Solostar U-100 Insulin) sennosides 8.6 mg tablet (Senokot) 17.2 mg (2 x 8.6 mg) PO QAM #60 03/28/23 06/27/23 Rx tabs losartan 25 mg tablet 25 mg PO QAM #90 tabs 03/29/23 06/27/23 Rx sertraline 50 mg tablet 150 mg (3 x 50 mg) PO HS 90 days 03/29/23 06/27/23 Rx #270 tabs trazodone 100 mg tablet 100 mg PO HS #90 tabs 04/12/23 06/27/23 Rx blood-glucose sensor (Dexcom G7 #3 ea 05/11/23 06/27/23 Rx Sensor device) oxycodone-acetaminophen 7.5 mg-325 1 tab PO Q8H PRN Pain 30 days #90 06/25/23 06/27/23 Rx mg tablet tabs baclofen 10 mg tablet 10 mg PO TID PRN Muscle Spasm 06/27/23 06/27/23 History diclofenac sodium 1 % topical gel 4 g EXT QID PRN as directed 06/27/23 06/27/23 History (Voltaren Arthritis Pain) Patient History Medical History (Updated 07/04/23 @ 11:32 by Gm Flowers MD) Abdominal pain Hypertriglyceridemia Incarcerated left inguinal hernia Fever Chronic back pain History of chest pain Fibromyalgia History of pulmonary embolism roughly 15yrs ago--unknown cause--no blood thinners COVID-19 11/08/2022 @ [facility]--head cold symptoms, slight cough--no symptoms now IBS (irritable bowel syndrome) TIA (transient ischemic attack) "more than 15yrs ago"--unknown cause, no deficits--no neurologist Hypertension Hyperlipidemia GERD with esophagitis Diabetes IDDM Depression CAD (coronary artery disease) Surgical History (Updated 07/04/23 @ 05:51 by Gm Flowers MD) S/P left inguinal hernia repair (03/26/23) Open Left Inguinal Hernia Repair with Mesh(Left) - Pollo Red DO History of fusion of cervical spine normal ROM History of repair of right rotator cuff History of bladder suspension procedure History of laparoscopy lysis of adhesions removal History of esophagogastroduodenoscopy (EGD) History of colonoscopy History of tooth extraction all teeth removed Hx of cholecystectomy H/O tubal ligation H/O: hysterectomy bhupendra bso H/O hernia repair x2 S/P coronary artery stent placement 5yrs ago @ [facility]--1 stent total H/O cardiac catheterization x1 roughly 5 yrs ago @ [facility]--1 stent placed--follows with Dr. Moy Family History Mother Respiratory arrest Coronary heart disease Hypertension Father Cancer Sister Diabetes Multiple sclerosis Other No family history of adverse response to anesthesia Social History Smoking Status: Former smoker packs per day: 1; Second Hand Exposure: No; Do You Dip or Chew Tobacco: No; Hx Alcohol Use: No Hx Substance Use: No Preferred Language: Albanian Communication Ability: Effective Licensed Physical Therapist Assistant Required: No Beliefs That Will Affect Care: None Current Living Situation: Alone Feels Safe at Home: Yes Physical Exam Constitutional: WD/WN, vitals as above no acute distress and not ill appearing Eyes: PERRL, conjunctivae normal, anicteric sclerae EOM intact bilaterally ENMT: external ear and nose normal, oropharynx normal Ears: no hearing impairment Neck: trachea midline, no thyromegaly Respiratory: normal respiratory effort; no respiratory distress and does not use accessory muscles Cardiovascular: Rate/Rhythm: regular rate and regular rhythm Chest (Breasts): Additional Comments: Abdomen is soft. Nontender. Left inguinal incision is well-healed with no redness or warmth and minimal tenderness. Skin: no rashes, warm and dry Psychiatric: Orientation: alert, oriented x 3 and cooperative Results & Data Vital Signs (Past 12 Hours) Vital Signs Temp Pulse Pulse Pulse Resp BP BP 07/05/23 07:42 37.0 C 65 18 98/60 L 07/05/23 07:27 78 07/05/23 06:50 37.4 C 07/05/23 03:49 37.9 C H 93 H 20 132/78 07/04/23 23:34 36.6 C 76 18 117/63 07/04/23 23:18 60 Pulse Ox O2 Del Method 07/05/23 07:42 93 Room Air 07/05/23 07:27 07/05/23 06:50 07/05/23 03:49 92 Room Air 07/04/23 23:34 93 Room Air 07/04/23 23:18 PG Care Time/CCT Total # of Minutes Spent Total Time Spent with Patient: Total time spent is greater than 50% in coordination of care (as documented) at patient's floor/unit and/or counseling patient: Coding Level of Care Code 37624 IN/OBS CONSULT LVL 3,45M Diagnoses Bacteremia R78.81 Groin fluid collection R18.8 Abdominal pain R10.9 S/P left inguinal hernia repair Z98.890; Z87.19 Acute pancreatitis K85.90 Acute pancreatitis complication: unspecified Pancreatitis type: unspecified pancreatitis type Poorly controlled type 2 diabetes mellitus E11.65 (5) Acute pancreatitis Acute pancreatitis complication: unspecified Pancreatitis type: unspecified pancreatitis type Qualified Code(s): K85.90 - Acute pancreatitis without necrosis or infection, unspecified
--- NOTE | 2023-07-05 19:39 | Hospitalist Progress Note ---
Date of Service July 05, 2023 Assessment & Plan (1) Groin fluid collection: Plan: as seen on CT a/p the collection is in the left groin near previous inguinal hernia repair operative site dedicated u/s obtained - complex fluid collection present, about 5cm in size s/p IR aspiration with purulent/bloody obtained culture pending but thus far negative blood cx's all positive with staph species; [employer] - Staph epi 1 bottle with bacillus species cont IV vanco fevers have improved she feels better cytologies neg for malignancy from the fluid collection Appreciate Dr Red's assistance He feels the likely source of her bacteremia is this fluid collection Plans to take out the mesh in about 2 weeks as outpatient (2) Bacteremia: Plan: 06/27 blood cx's positive - staph; 1 bottle with bacillus species as well repeat blood cx's obtained today to ensure sterility cont IV vanco source - suspected to be due to #1 will obtain echo - r/o SBE / valvular vegetations if the fluid collection is deemed NOT the source then obtain MRI l-spine (r/o abscess, diskitis, etc) (3) S/P left inguinal hernia repair: Plan: on CT a/p there is a fluid collection in the left groin dedicated u/s obtained with 5cm complex appearing fluid collection IR drainage performed - see #[address] Red performed index surgery in March - appreciate his consult today (4) Pancreatitis: Plan: elevated lipase and stranding near pancreatic head on CT at time of admission. thought 2nd to severe hypertriglyceridemia with initial trigs of 2068. Does not drink alcohol and has had cholecystectomy in the past. Had previous episode of acute pancreatitis thought related to medications (statin and HCTZ?). Father had pancreatic cancer. Brother from severe pancreatitis - issue with a "blocked duct." Sister has also had acute pancreatitis. initially was on insulin drip for high triglycerides; improved from -->1200-->800. Stopped insulin drip 06/29, started fenofibrate 06/30. Last trigs - TG 530. MRCP negative for CBD stone or pancreatic duct abnormalities. upper abdominal pain FINALLY improving. diet advanced today. DM/low-fat. (5) Abdominal pain: Plan: see above cont dilaudid prn for pain cont carafate + PPI (6) Hypertriglyceridemia: Plan: see above SEVERE at presentation (>1999) now on fibrate therapy (7) Poorly controlled type 2 diabetes mellitus: Plan: Uncontrolled severe hyperglycemia on presentation with BG>800 HbA1c 16% initially on insulin drip, then transitioned to glargine and novolog on 06/30/23. BSGs stable/acceptable at this time. (8) Neuropathy: Plan: cont gabapentin 800mg QID (9) JOYCE (generalized anxiety disorder): Plan: cont sertraline, etc (10) Depression: Plan: cont sertraline, etc (11) Fibromyalgia: Plan: noted cont gabapentin, other meds (12) CAD (coronary artery disease): Plan: Hx cardiac stent - noted cont metoprolol succ uncertain why she is not on aspirin or plavix at baseline echo tomorrow to assess LV function & r/o valvular vegetations (13) GERD with esophagitis: Plan: cont PPI BID cont carafate QID in the event some of her upper abd pain has been from the esophagus and/or stomach itself (14) Hypertension: Plan: losartan on hold remains on metoprolol succ at HS BPs controlled / acceptable (15) IBS (irritable bowel syndrome): Plan: noted Plan DVT proph - lovenox daily patient with LE edema -- due to 3rd spacing in the setting illness/pancreatitis and low albumin of 2.8 can't rule out acute HFpEF echo in am lasix starting tomorrow am if BPs will allow and labs stable Admission and Anticipated Discharge Date Admission Date: June 27, 2023 Subjective feels better today less upper abd pain no nausea her appetite has returned; she requested regular diet did have such for dinner and tolerated it without increased abd pain or N/V still with minor discomfort over the L groin fluid collection still with LE edema but denies dyspnea tele overnight - NSR denies any new complaints Review of Systems Review of Systems: gen - no chills today cv - no chest pain pulm - no cough GI - having regular BMs Physical Exam Physical Exam: gen - looks much better today, NAD mouth - MM more moist neck - no JVD heart - RRR, s1 s2, no murmur lungs - CTA b/l abd - soft, nontender upper abdomen today; no HSM; ND; BS+ ext - 1+ edema right, 1-2+ edema on left; pulses 2+ b/l skin - no rash psych - a/o x 3 Results & Data Results & Data Vital Signs (Past 12 Hours) Vital Signs Temp Pulse Pulse Resp BP Pulse Ox O2 Del Method 07/05/23 16:08 37.1 C 85 22 153/73 H 92 Room Air 07/05/23 15:09 71 07/05/23 13:16 97/61 L 07/05/23 11:42 36.9 C 70 18 87/60 L 94 Room Air 07/05/23 07:42 37.0 C 65 18 98/60 L 93 Room Air Laboratory Results Laboratory Results - last 24 hr 07/04/23 07/05/23 07/05/23 20:19 05:57 07:29 Sodium 138 Potassium 3.8 Chloride 108 H Carbon Dioxide 24 Anion Gap 6 BUN 6 Creatinine 0.73 Est Cr Clr Drug Dosing 93.2 Est GFR ( Amer) 102.3 Est GFR (Non-Af Amer) 88.3 BUN/Creatinine Ratio 8.2 L Glucose 203 H POC Glucose 173 H 155 H Calcium 7.7 L Magnesium 1.6 L 07/05/23 07/05/23 11:13 16:22 POC Glucose 209 H 186 H PG Care Time/CCT Total # of Minutes Spent Total Time Spent with Patient: Total time spent is greater than 50% in coordination of care (as documented) at patient's floor/unit and/or counseling patient: Coding Level of Care Code 63036 SUB INP/OBS CARE 2/35MIN Diagnoses Groin fluid collection R18.8 Bacteremia R78.81 S/P left inguinal hernia repair Z98.890; Z87.19 Pancreatitis K85.90 Abdominal pain R10.9 Hypertriglyceridemia E78.1 Poorly controlled type 2 diabetes mellitus E11.65 Neuropathy G62.9 JOYCE (generalized anxiety disorder) F41.1 Depression F32.9 Fibromyalgia M79.7 CAD (coronary artery disease) I25.10 GERD with esophagitis K21.00 Hypertension I10 IBS (irritable bowel syndrome) K58.9
[2023-07-06 06:27] LABS: BUN Creatinine Ratio 10.8 (10-20); Calcium 7.8 mg/dl (8.6-10.3); Creatinine Clr Calc Pharmacy 92.9 ml/min; Est GFR (African American) 100.6 ml/min; Est GFR (Non-African American) 86.8 ml/min; Potassium 3.7 mmol/L (3.5-5.1)
--- NOTE | 2023-07-06 08:27 | Surgery Progress Note ---
Date of Service July 06, 2023 Assessment & Plan (1) Bacteremia: Plan: doing ok from my standpoint. no fevers for over 24 hours. ok for d/c from my standpoint. f/u with me in 1 week to schedule explant of mesh. Dr. Buckner plumbing and heating contractor for weekend if any questions. (2) Groin fluid collection: Admission and Anticipated Discharge Date Admission Date: June 27, 2023 Subjective pt seen. doing ok. no new complaints. gavin diet. Physical Exam Physical Exam: alert. nad abd: soft. exam unchanged. Results & Data Vital Signs (Past 12 Hours) Vital Signs Temp Pulse Pulse Resp BP Pulse Ox O2 Del Method 07/06/23 07:15 36.6 C 57 L 18 98/63 L 97 Nasal Cannula 07/06/23 03:47 36.4 C L 59 L 18 94/59 L 96 Nasal Cannula 07/05/23 23:25 36.5 C 87 18 99/64 L 91 Room Air 07/05/23 22:26 90 07/05/23 22:00 Nasal Cannula O2 Flow Rate 07/06/23 07:15 3 07/06/23 03:47 3 07/05/23 23:25 07/05/23 22:26 07/05/23 22:00 3 PG Care Time/CCT Total # of Minutes Spent Total Time Spent with Patient: Total time spent is greater than 50% in coordination of care (as documented) at patient's floor/unit and/or counseling patient: Coding Level of Care Code 24473 SUB INP/OBS CARE 04/19MIN Diagnoses Bacteremia R78.81 Groin fluid collection R18.8
[2023-07-06] MEDS: VANCOMYCIN LEVEL ONE (08:35)
[2023-07-06] MEDS: POTASSIUM CHLORIDE CRTAB 20 MEQ TABCR PO STA (09:26)
[2023-07-06] MEDS: MAGNESIUM OXIDE 400 MG TAB PO SCH (09:26)
[2023-07-06] MEDS: FUROSEMIDE INJ 20 MG/2 ML VIAL IV ONE (09:27)
--- NOTE | 2023-07-06 10:55 | Pharmacy Report ---
Pharmacy PK ABX Note - Date of Service July 06, 2023 - Assessment and Plan Assessment 07/05: Reviewed vancomycin level, predicting a goal AUC/FUENTES within therapeutic range, gram positive bacilli in blood culture resulted bacilli not anthracis, no sensitivities to follow (vancomycin is the preferred drug for treatment). Afebrile x 24 hours, repeat blood cultures negative x24 hours. Suspected source of bacteremia groin fluid collection, culture thus far negative. 07/04: 62 year old F receiving vancomycin for treatment of gastrointestinal infection/bacteremia. Pertinent microbiologic data includes: blood culture growing GPCs in clusters (2/4 anaerobic bottles) and Gram positive bacilli (1/4 anaerobic bottle) BCID resulted staph epidermidis, no MecA resistance. Patient was febrile overnight, WBC WNL, and renal function normal. Day # 1 of antimicrobial therapy. Plan Vancomycin * Maintenance dose: 750 mg IV every 8 hours * Continue current regimen. * Regimen is predicted to achieve target AUC/FUENTES of 400-600 mg/L.hr * Trough level ordered for: 07/09/23 @0530 Pharmacy will continue to follow and will adjust dose/frequency as necessary. Thank you. Pharmacy has transitioned to AUC monitoring for vancomycin. AUC/FUENTES is the preferred PK/PD target and is associated with decreased risk of nephrotoxicity compared to traditional trough targets.
--- NOTE | 2023-07-06 16:49 | Hospitalist Progress Note ---
Date of Service July 06, 2023 Assessment & Plan (1) Groin fluid collection: Plan: as seen on CT a/p the collection is in the left groin near previous inguinal hernia repair operative site dedicated u/s obtained - complex fluid collection present, about 5cm in size s/p IR aspiration with purulent/bloody obtained culture pending -- still negative blood cx's all positive with coag neg staph 1 bottle with bacillus species cont IV vanco overall fever curve has improved repeat blood cultures from 07/04 neg will repeat cultures again due to recurrent fever today cytologies neg for malignancy from the fluid collection Appreciate Dr Red's assistance He feels the likely source of her bacteremia is this fluid collection Plans to take out the mesh in about 2 weeks as outpatient check a baseline crp if she fails to improve from an infectious standpoint would she need the mesh removed sooner?? (2) Bacteremia: Plan: 06/27 blood cx's positive - coag neg staph; 1 bottle with bacillus species as well repeat blood cx's 07/04 neg repeating cultures again today due to recurrent fever check baseline crp echo w/o valvular vegetations cont IV vanco source - suspected to be due to #1 HOWEVER, since the culture from the fluid collection is still negative - and given the severe back pain - will check MRI lspine to r/o diskitis, abscess, etc (3) S/P left inguinal hernia repair: Plan: on CT a/p there is a fluid collection in the left groin dedicated u/s obtained with 5cm complex appearing fluid collection IR drainage performed - see #[address] Red performed index surgery in March - appreciate his consult and recs (4) Pancreatitis: Plan: elevated lipase and stranding near pancreatic head on CT at time of admission. thought 2nd to severe hypertriglyceridemia with initial trigs of 2068. Does not drink alcohol and has had cholecystectomy in the past. Had previous episode of acute pancreatitis thought related to medications (statin and HCTZ?). Father had pancreatic cancer. Brother from severe pancreatitis - issue with a "blocked duct." Sister has also had acute pancreatitis. initially was on insulin drip for high triglycerides; improved from -->1200-->800. Stopped insulin drip 06/29, started fenofibrate 06/30. Last trigs - TG 530. MRCP negative for CBD stone or pancreatic duct abnormalities. c/o severe upper abd pain today -- repeated her LFTs and lipase -- again came back wnl. defer on repeat CT at this time - low suspicion for pancreatic pseudocyst formation - just had extensive re-imaging a few days ago. consider checking KUB to check fecal load given her chronic narcotic usage (5) Abdominal pain: Plan: see above cont dilaudid prn for pain - increase to 1.5mg q3h prn cont carafate + PPI (6) Hypertriglyceridemia: Plan: see above SEVERE at presentation (>2000) now on fibrate therapy (7) Poorly controlled type 2 diabetes mellitus: Plan: Uncontrolled severe hyperglycemia on presentation with BG>800 HbA1c 16% initially on insulin drip, then transitioned to glargine and novolog on 06/30/23. BSGs stable/acceptable at this time. (8) Neuropathy: Plan: cont gabapentin 800mg QID (9) JOYCE (generalized anxiety disorder): Plan: cont sertraline, etc (10) Depression: Plan: cont sertraline, etc (11) Fibromyalgia: Plan: noted cont gabapentin, other meds (12) CAD (coronary artery disease): Plan: Hx cardiac stent - noted cont metoprolol succ uncertain why she is not on aspirin or plavix at baseline echo today wnl - normal LV function; normal LV wall motion; no valvular vegetations (13) GERD with esophagitis: Plan: cont PPI BID cont carafate QID in the event some of her upper abd pain has been from the esophagus and/or stomach itself (14) Hypertension: Plan: losartan on hold remains on metoprolol succ at HS BPs have been low or low-normal - hold met succ, lower dose to meto tartrate 12.5mg BID (15) IBS (irritable bowel syndrome): Plan: noted (16) Volume overload: Plan: weight is 10+ kg up from admission has JVD and significant edema in the legs lasix 20mg IV daily starting today cont metoprolol Plan DVT proph - lovenox daily Admission and Anticipated Discharge Date Admission Date: June 27, 2023 Subjective able to tolerate her meals today - oral intake is NOT making her abd pain worse no vomiting but her upper abdominal pain is worse than yesterday the 1mg dilaudid dosing is not helping pain comes/goes; severe when it comes on states she passed stool today no melena or BRBPR had fever this afternoon - feels poorly from such chills had copious urine output with lasix this am minimal pain L groin Review of Systems Review of Systems: gen - fevers/chills present; appetite remains the same as yesterday pulm - no dyspnea or OHARA cv - no chest pain; ongoing edema of legs GI - bloated, pain - no LUTS Physical Exam Physical Exam: gen - looks worse today, crying, uncomfortable mouth - MM still slightly dry neck - JVD present, 2/3 way up neck heart - RRR, s1 s2, no murmur lungs - CTA b/l but decreased BS bases abd - soft, very tender upper abdomen, no HSM; mildly distended; BS+ ext - 1-2+ edema b/l; pulses 2+ b/l skin - no rash ; left groin - prior surgical incision healed; no erythema or drainage psych - a/o x 3 musculo - VERY TENDER to palpation over all lumbar spinal segments as well as paraspinal musculature Results & Data Results & Data Vital Signs (Past 12 Hours) Vital Signs Temp Pulse Resp BP Pulse Ox O2 Del Method O2 Flow Rate 07/06/23 15:59 37.8 C H 76 21 89/57 L 90 Room Air 07/06/23 10:55 37.2 C 70 19 114/72 95 Room Air 07/06/23 07:15 36.6 C 57 L 18 98/63 L 97 Nasal Cannula 3 Laboratory Results Laboratory Results - last 24 hr 07/05/23 07/06/23 07/06/23 20:16 05:36 07:13 Sodium 138 Potassium 3.7 Chloride 108 H Carbon Dioxide 26 Anion Gap 4 BUN 8 Creatinine 0.74 Est Cr Clr Drug Dosing 92.9 Est GFR ( Amer) 100.6 Est GFR (Non-Af Amer) 86.8 BUN/Creatinine Ratio 10.8 Glucose 171 H POC Glucose 259 H 175 H Calcium 7.8 L Random Vancomycin 13.5 07/06/23 07/06/23 11:26 16:28 Sodium Potassium Chloride Carbon Dioxide Anion Gap BUN Creatinine Est Cr Clr Drug Dosing Est GFR ( Amer) Est GFR (Non-Af Amer) BUN/Creatinine Ratio Glucose POC Glucose 150 H 136 H Calcium Random Vancomycin PG Care Time/CCT Total # of Minutes Spent Total Time Spent with Patient: Total time spent is greater than 50% in coordination of care (as documented) at patient's floor/unit and/or counseling patient: Coding Level of Care Code 14207 SUB INP/OBS CARE 3/50MIN Diagnoses Groin fluid collection R18.8 Bacteremia R78.81 S/P left inguinal hernia repair Z98.890; Z87.19 Pancreatitis K85.90 Abdominal pain R10.9 Hypertriglyceridemia E78.1 Poorly controlled type 2 diabetes mellitus E11.65 Neuropathy G62.9 JOYCE (generalized anxiety disorder) F41.1 Depression F32.9 Fibromyalgia M79.7 CAD (coronary artery disease) I25.10 GERD with esophagitis K21.00 Hypertension I10 IBS (irritable bowel syndrome) K58.9 Volume overload E87.70
[2023-07-06] MEDS: HYDROmorphone INJ 0.5 MG/0.5 ML SYR IV STA (17:49)
[2023-07-06 19:07] LABS: Basophils # (auto) 0.04 K/uL (0.00-0.20); Basophils % (auto) 0.7 %; Eosinophils # (auto) 0.15 K/uL (0.00-0.50); Eosinophils % (auto) 2.6 %; Hematocrit (blood only) 25.4 % (37.0-47.0); Hemoglobin 8.2 g/dl (12.0-16.0); Immature Granulocytes # (auto) 0.03 K/uL (0.01-0.20); Immature Granulocytes % (auto) 0.5 %; Lymphocytes # (auto) 1.19 K/uL (1.20-3.40); Lymphocytes % (auto) 20.8 %; Mean Corpuscular Hemoglobin 30.6 pg (25.0-34.0); Mean Corpuscular Hgb Conc 32.3 g/dL (32.0-36.0); Mean Corpuscular Volume 94.8 fL (80.0-100.0); Mean Platelet Volume 10.2 fL (9.4-12.4); Monocytes # (auto) 0.63 K/uL (0.11-0.59); Neutrophils # (auto) 3.69 K/uL (1.40-6.50); Neutrophils % (auto) 64.4 %; Platelet Count 183 K/uL (130-400); RDW Coefficient of Variation 13.8 % (11.5-14.5); RDW Standard Deviation 47.4 fL (36.4-46.3); Red Blood Count 2.68 M/uL (4.20-5.40); White Blood Count 5.73 K/ul (4.8-10.8)
[2023-07-06 19:24] LABS: Albumin Level 2.9 gm/dl (3.4-5.0); Bilirubin Direct 0.1 mg/dl (0-0.2); Bilirubin,Total 0.4 mg/dl (0.2-1.0); Total Protein 5.6 gm/dl (6.0-8.3)
[2023-07-06] MEDS: METOPROLOL TARTRATE 25 MG TAB PO SCH (20:24)
[2023-07-06] MEDS: HYDROmorphone INJ 0.5 MG/0.5 ML SYR IV PRN (20:34)
[2023-07-06 20:51] LABS: C Reactive Protein 15.34 mg/dl (0-0.5)
--- NOTE | 2023-07-06 21:28 | XCELERA ---
[id number]
--- NOTE | 2023-07-06 23:30 | Magnetic Resonance Report ---
Exam(s): MRI L SPINE Without Contrast EXAM: MR Lumbar Spine Without Intravenous Contrast CLINICAL HISTORY: Reason for exam: staph bacteremia, severe back pain; ro abscess. TECHNIQUE: Magnetic resonance images of the lumbar spine without intravenous contrast in multiple planes. COMPARISON: Comparison made to prior CT scan of abdomen and pelvis from July 01, 2023. FINDINGS: Vertebrae: There are 5 lumbar type vertebral bodies with a mild generalized curve to the left and normal lumbar lordosis. There is normal vertebral body height and alignment. The bone marrow signal is heterogeneous with reactive endplate changes. No acute fracture. Spinal cord: The conus is normal size, shape and signal characteristics, terminating at L1-L2. Soft tissues: Advanced atrophy of the iliopsoas, paraspinous or spinous musculature. The aorta and IVC flow voids are intact. The visions kidneys are unremarkable. There is extensive subcutaneous edema over the lumbar and sacral spine. DISCS/SPINAL CANAL/NEURAL FORAMINA: L1-L2: There is mild disc degeneration with annular disc bulge asymmetric to the right causing mild subarticular recess stenosis, with disc extending to the neural foramina without evidence of impingement or significant stenosis. There is minimal facet arthropathy with mild synovitis. L2-L3: There is mild disc degeneration with annular disc bulge flattening the thecal sac, disc extending into the neural foramina without evidence of impingement or significant stenosis. There is mild facet arthropathy with mild synovitis. L3-L4: There is mild disc degeneration with annular disc bulge causing a mild subarticular recess stenosis, or disc extend to the neural foramina without evidence of impingement or significant stenosis. There is mild facet arthropathy with mild to moderate synovitis. L4-L5: Moderate disc degeneration with annular disc bulge asymmetric to the right causing a mild subarticular recess stenosis, with disc and osteophyte extend to the neural foramina causing a mild right stenosis without evidence of impingement. There is mild facet arthropathy with mild to moderate synovitis. L5-S1: Moderate degeneration with annular disc bulge flattening the ventral thecal sac, with disc and osteophyte extend to the neural foramina causing mild right and moderate left stenosis with mild impingement of the left L5 nerve root ganglion. There is mild facet arthropathy with mild synovitis. IMPRESSION: 1. Moderate disc degeneration at L4-5 and L5-S1 with mild disc degeneration at L1-2, L2-3 and L3-4 with annular disc bulging stenosis at L1-L2, L3-4 and L4-5 without evidence of neural impingement. 2. There is no spinal canal stenosis. 3. There is mild right L4-5, mild right and moderate left L5-S1 neural foraminal stenosis with impingement of the left L5 nerve root ganglion. 4. There is minimal to mild facet arthropathy with mild to moderate synovitis. 5. No evidence of fracture, infection, tumor or arachnoiditis. Electronically signed by: Janet Arellano MD 07/06/23 23:29 PM
--- NOTE | 2023-07-07 05:54 | Surgery Progress Note ---
Date of Service July 07, 2023 Assessment & Plan (1) Groin fluid collection: Plan: Patient has been admitted on the hospital service Abdominal ultrasound on 07/04/2023 shows a complex fluid collection Abdominal CT scan on 06/27/2023 showed a small fluid collection in the left inguinal region Patient had a percutaneous aspiration of the left groin on 07/04/2023; thus far, cultures are negative for growth As the patient is noted to have bacteremia suspected source is from the left groin fluid collection. Tentative plan is for patient to be maintained on antibiotics for several weeks; she is currently on vancomycin and plans to be to switch her to oral antibiotics at time of discharge Dr. Red of [facility] physician group general surgery is tentatively planning on draining the fluid collection with explant of mesh that was previously placed in 2 to 3 weeks Remainder of care as directed by primary service Admission and Anticipated Discharge Date Admission Date: June 27, 2023 Subjective Patient is currently resting comfortably in bed. She notes pain in her right groin. She does note she is having intermittent fevers. She denies any nausea or vomiting. Physical Exam Gastrointestinal (Abdomen): Abdomen is soft and nondistended. There is no rebound tenderness or guarding. Patient has pain with palpation in the left groin near the inguinal crease. Results & Data Vital Signs (Past 12 Hours) Vital Signs Temp Pulse Pulse Resp BP Pulse Ox O2 Del Method 07/07/23 03:46 36.8 C 73 22 109/67 91 Room Air 07/07/23 01:15 37.0 C 07/07/23 00:00 37.1 C 63 20 120/74 97 Room Air 07/06/23 22:50 84 07/06/23 20:40 Room Air 07/06/23 19:00 37.8 C H 82 20 123/70 92 Room Air PG Care Time/CCT Total # of Minutes Spent Total Time Spent with Patient: Total time spent is greater than 50% in coordination of care (as documented) at patient's floor/unit and/or counseling patient: Coding Level of Care Code 71013 SUB INP/OBS CARE 1/25MIN Diagnoses Groin fluid collection R18.8
[2023-07-07 08:13] LABS: BUN Creatinine Ratio 11.1 (10-20); Calcium 8.5 mg/dl (8.6-10.3); Creatinine Clr Calc Pharmacy 96.2 ml/min; Est GFR (Non-African American) 89.8 ml/min; Magnesium 1.8 mg/dl (1.7-2.4); Potassium 4.4 mmol/L (3.5-5.1)
--- NOTE | 2023-07-07 09:15 | XRay Report ---
XR abdomen min 2V HISTORY: 62 years-old Female severe upper abd pain, CT a/p neg acute upper abdominal pain COMPARISON: CT 07/01/2023 TECHNIQUE: 3 views of the abdomen FINDINGS: Cholecystectomy. Moderate colonic fecal retention. Distended debris-filled stomach. Small pleural eff usions with mild bibasilar atelectasis. Nonobstructive bowel gas pattern. No urolith. No acute fractu re. IMPRESSION: 1. Nonobstructive bowel gas pattern. 2. Moderate colonic fecal retention. 3. Cholecystectomy. 4. Small pleural effusions. ACT 112: Negative or not required by law. The above report was generated using voice recognition software. It may contain grammatical, syntax o r spelling errors. Electronically signed by: Hayden Moody M.D. 07/07/2023 9:12 AM
[2023-07-07] MEDS: FUROSEMIDE INJ 20 MG/2 ML VIAL IV ONE (09:34)
[2023-07-07 09:51] LABS: Hematocrit (blood only) 27.7 % (37.0-47.0); Hemoglobin 9.1 g/dl (12.0-16.0); Mean Corpuscular Hemoglobin 31.4 pg (25.0-34.0); Mean Corpuscular Hgb Conc 32.9 g/dL (32.0-36.0); Mean Corpuscular Volume 95.5 fL (80.0-100.0); Mean Platelet Volume 10.3 fL (9.4-12.4); Platelet Count 199 K/uL (130-400); RDW Standard Deviation 48.7 fL (36.4-46.3); White Blood Count 5.49 K/ul (4.8-10.8)
--- NOTE | 2023-07-07 13:53 | Hospitalist Progress Note ---
Date of Service July 07, 2023 Assessment & Plan (1) Groin fluid collection: Plan: as seen on CT a/p and ultrasound; latter showed the collection is complex in appearance size - about 5cm the collection is in the left groin near previous inguinal hernia repair opera tive site s/p IR aspiration with purulent/bloody obtained culture pending but remains negative blood cx's all positive with coag neg staph 1 bottle with bacillus species cont IV vanco overall fever curve has improved repeat blood cultures from 07/04 neg repeat blood cultures from 07/05 neg cytologies neg for malignancy from the fluid collection Appreciate Dr Red's assistance He feels the likely source of her bacteremia is this fluid collection Plans to take out the mesh in about 2 weeks as outpatient baseline crp noted - 15 if she fails to improve from an infectious standpoint would she need the mesh removed sooner?? (2) Bacteremia: Plan: 06/27 blood cx's positive - coag neg staph; 1 bottle with bacillus species as well repeat blood cx's 07/04 neg repeat blood cx's 07/05 also neg source - suspected to be due to #1 no skin source of infection baseline crp 15 echo w/o valvular vegetations MRI lumbar spine without signs of epidural abscess or diskitis cont IV vanco plan ID consult on Saturday 07/08 (3) S/P left inguinal hernia repair: Plan: on CT a/p there is a fluid collection in the left groin dedicated u/s obtained with 5cm complex appearing fluid collection IR drainage performed - see #[address] Red performed index surgery in March - appreciate his consult and recs plans to take out the mesh in 2-3 weeks as outpatient (4) Pancreatitis: Plan: elevated lipase and stranding near pancreatic head on CT at time of admission. thought 2nd to severe hypertriglyceridemia with initial trigs of 2068. Does not drink alcohol and has had cholecystectomy in the past. Had previous episode of acute pancreatitis thought related to medications (statin and HCTZ?). Father had pancreatic cancer. Brother from severe pancreatitis - issue with a "blocked duct." Sister has also had acute pancreatitis. initially was on insulin drip for high triglycerides; improved from -->1200-->800. Stopped insulin drip 06/29, started fenofibrate 06/30. Last trigs - TG 530. MRCP negative for CBD stone or pancreatic duct abnormalities. repeat LFTs and lipase wnl on 07/06/23. defer on repeat CT at this time - low suspicion for pancreatic pseudocyst formation - just had extensive re-imaging a few days ago. (5) Abdominal pain: Plan: see above cont dilaudid prn for pain, but counseled patient this is going to make her severe constipation worse cont carafate + PPI suspect abd pain is multifactorial - recent pancreatitis, L groin infected fluid collection (suspected), ?gastritis, ?IBS, and constipation (6) Hypertriglyceridemia: Plan: see above SEVERE at presentation (>2000) now on fibrate therapy (7) Poorly controlled type 2 diabetes mellitus: Plan: Uncontrolled severe hyperglycemia on presentation with BG>800 HbA1c 16% initially on insulin drip, then transitioned to glargine and novolog on 06/30/23. BSGs stable/acceptable at this time. (8) Neuropathy: Plan: cont gabapentin 800mg QID (9) JOYCE (generalized anxiety disorder): Plan: cont sertraline, etc (10) Depression: Plan: cont sertraline, etc (11) Fibromyalgia: Plan: noted cont gabapentin, other meds (12) CAD (coronary artery disease): Plan: Hx cardiac stent - noted cont metoprolol succ uncertain why she is not on aspirin or plavix at baseline echo this admission wnl - normal LV function; normal LV wall motion; no valvular vegetations (13) GERD with esophagitis: Plan: cont PPI BID cont carafate QID in the event some of her upper abd pain has been from the esophagus and/or stomach itself (14) Hypertension: Plan: losartan on hold remains on metoprolol succ at HS BPs have been low or low-normal - hold met succ, lowered dose to meto tartrate 12.5mg BID (15) IBS (irritable bowel syndrome): Plan: noted (16) Volume overload: Plan: weight is 10+ kg up from admission has JVD and significant edema in the legs lasix 20mg IV daily cont metoprolol BMP am (17) Constipation due to opioid therapy: Plan: mod-severe on abd x-rays today most of colon with stool stool is in balls in the left colon & rectum discussed this in great detail with patient today she had been assuming since she was passing liquid stool that she wasn't constipated discussed overflow stooling plan - dulcolax PO x 1, then golytely prep until stools are light yellow / clear if she continues with pain even after the prep then re-image the abdomen with CT Plan DVT proph - lovenox daily PT consult requested updated pt's daughter by phone a few days ago Admission and Anticipated Discharge Date Admission Date: June 27, 2023 Subjective in tears upon my arrival for visit stating she continues with severe, sharp abdominal pains in the upper abdomen (same location as previous) along with minor pain over left groin (previous inguinal hernia surgery site and fluid collection site) no nausea or vomiting eating meals and drinking fluids - neither makes her feel worse had liquid stool this am we took abd x-rays this am - mod-severe constipation seen most of the colon and rectum with stool showed her the films; explained that this is opiate-induced and likely contributing in some fashion to her pain explained overflow diarrhea/liquid stooling she expressed concerns we were taking away her pain meds; reassured her that this would not be the case however, discussed that the narcotics will worsen the already severe constipation and the only treatment for constipation pain is getting rid of the stool recommended bowel prep with go-lytely which she was willing tele overnight wnl Review of Systems Review of Systems: cv - no chest pain; LE edema improving pulm - no dyspnea GI - see HPI Physical Exam Physical Exam: gen - she was tearful and crying, but her overall appearance is much better than earlier in the stay with nontoxic features, improved/normal "color", etc mouth - MMM neck - JVD remains - 2/[address] way up neck; +hepatojugular reflex heart - RRR, s1 s2, no murmur lungs - CTA b/l but decreased BS bases b/l abd - soft, no peritoneal signs, mildly tender upper abdomen, no HSM; still mildly distended; BS+ ext - 1+ edema b/l; pulses 2+ b/l skin - left groin - prior surgical incision healed; no erythema or drainage psych - a/o x 3 but tearful Results & Data Results & Data Vital Signs (Past 12 Hours) Vital Signs Temp Pulse Resp BP Pulse Ox O2 Del Method 07/07/23 11:12 36.6 C 73 19 108/68 94 Room Air 07/07/23 08:10 36.6 C 73 18 107/68 93 Room Air 07/07/23 03:46 36.8 C 73 22 109/67 91 Room Air Laboratory Results Laboratory Results - last 24 hr 07/07/23 07/07/23 07/07/23 07:25 07:33 11:12 WBC 5.49 RBC 2.90 L Hgb 9.1 L Hct 27.7 L MCV 95.5 MCH 31.4 MCHC 32.9 RDW Std Deviation 48.7 H RDW Coeff of [place] 14.0 Plt Count 199 MPV 10.3 Sodium 139 Potassium 4.4 Chloride 103 Carbon Dioxide 31 Anion Gap 5 BUN 8 Creatinine 0.72 Est Cr Clr Drug Dosing 96.2 Est GFR ( Amer) 104.0 Est GFR (Non-Af Amer) 89.8 BUN/Creatinine Ratio 11.1 Glucose 126 H POC Glucose 130 H 92 Calcium 8.5 L Magnesium 1.8 07/07/23 07/07/23 15:53 20:06 POC Glucose 124 H 93 Diagnostic Findings Abdomen X-Ray 07/07/23 08:09 XR abdomen min 2V HISTORY: 62 years-old Female severe upper abd pain, CT a/p neg acute upper abdominal pain COMPARISON: CT 07/01/2023 TECHNIQUE: 3 views of the abdomen FINDINGS: Cholecystectomy. Moderate colonic fecal retention. Distended debris-filled stomach. Small pleural effusions with mild bibasilar atelectasis. Nonobstructive bowel gas pattern. No urolith. No acute fracture. IMPRESSION: 1. Nonobstructive bowel gas pattern. 2. Moderate colonic fecal retention. 3. Cholecystectomy. 4. Small pleural effusions. ACT 112: Negative or not required by law. The above report was generated using voice recognition software. It may contain grammatical, syntax or spelling errors. Electronically signed by: Hayden Moody M.D. 07/07/2023 9:12 AM PG Care Time/CCT Total # of Minutes Spent Total Time Spent with Patient: Total time spent is greater than 50% in coordination of care (as documented) at patient's floor/unit and/or counseling patient: Coding Level of Care Code 49737 SUB INP/OBS CARE 3/50MIN Diagnoses Groin fluid collection R18.8 Bacteremia R78.81 S/P left inguinal hernia repair Z98.890; Z87.19 Pancreatitis K85.90 Abdominal pain R10.9 Hypertriglyceridemia E78.1 Poorly controlled type 2 diabetes mellitus E11.65 Neuropathy G62.9 JOYCE (generalized anxiety disorder) F41.1 Depression F32.9 Fibromyalgia M79.7 CAD (coronary artery disease) I25.10 GERD with esophagitis K21.00 Hypertension I10 IBS (irritable bowel syndrome) K58.9 Volume overload E87.70 Constipation due to opioid therapy K59.03; T40.2X5A
[2023-07-07] MEDS: bisacodyL 5 MG TABEC PO ONE (14:28)
[2023-07-07] MEDS ORDERED: LAVAGE SOLUTION 4000ML PO SCH (15:00)
[2023-07-08 08:16] LABS: Hemoglobin 9.3 g/dl (12.0-16.0); Mean Corpuscular Hemoglobin 30.7 pg (25.0-34.0); Mean Corpuscular Hgb Conc 33.2 g/dL (32.0-36.0); Mean Corpuscular Volume 92.4 fL (80.0-100.0); Mean Platelet Volume 10.3 fL (9.4-12.4); Platelet Count 213 K/uL (130-400); RDW Coefficient of Variation 13.8 % (11.5-14.5); Red Blood Count 3.03 M/uL (4.20-5.40); White Blood Count 5.08 K/ul (4.8-10.8)
[2023-07-08 08:23] LABS: BUN Creatinine Ratio 13.4 (10-20); Calcium 8.5 mg/dl (8.6-10.3); Creatinine Clr Calc Pharmacy 102.8 ml/min; Est GFR (African American) 109.2 ml/min; Est GFR (Non-African American) 94.2 ml/min
[2023-07-08] MEDS: POTASSIUM CHLORIDE CRTAB 20 MEQ TABCR PO SCH (10:18)
[2023-07-08] MEDS: FUROSEMIDE INJ 20 MG/2 ML VIAL IV ONE (10:19)
--- NOTE | 2023-07-08 16:31 | Hospitalist Progress Note ---
Date of Service July 08, 2023 Assessment & Plan (1) Groin fluid collection: Plan: as seen on CT a/p and ultrasound; latter showed the collection is complex in appearance size - about 5cm the collection is in the left groin near previous inguinal hernia repair opera tive site had the inguinal hernia surgery in 03/[address] Red s/p IR aspiration with purulent/bloody obtained culture pending but still remains negative blood cx's all positive with coag neg staph 1 bottle with bacillus species cont IV vanco plan for ID consultation on 07/09/23 repeat blood cultures from 07/04 neg repeat blood cultures from 07/05 neg cytologies neg for malignancy from the fluid collection Appreciate Dr Red's assistance He feels the likely source of her bacteremia is this fluid collection Plans to take out the mesh in about 2 weeks as outpatient baseline crp noted - 15; recheck in 48 hours if she fails to improve from an infectious standpoint would she need the mesh removed sooner?? (2) Bacteremia: Plan: 06/27 blood cx's positive - coag neg staph; 1 bottle with bacillus species as well repeat blood cx's 07/04 neg repeat blood cx's 07/05 neg source - suspected to be due to #1 no skin source of infection baseline crp 15 echo w/o valvular vegetations MRI lumbar spine without signs of epidural abscess or diskitis cont IV vanco plan ID consult on Sunday07/09/23 no fevers in 48+ hours (3) S/P left inguinal hernia repair: Plan: on CT a/p there is a fluid collection in the left groin dedicated u/s obtained with 5cm complex appearing fluid collection IR drainage performed - see #[address] Red performed index surgery in March - appreciate his consult and recs plans to take out the mesh in 2-3 weeks as outpatient (4) Pancreatitis: Plan: elevated lipase and stranding near pancreatic head on CT at time of admission. thought 2nd to severe hypertriglyceridemia with initial trigs of 2068. Does not drink alcohol and has had cholecystectomy in the past. Had previous episode of acute pancreatitis thought related to medications (statin and HCTZ?). Father had pancreatic cancer. Brother from severe pancreatitis - issue with a "blocked duct." Sister had acute pancreatitis. initially was on insulin drip for high triglycerides; improved from 1999s-->1200-->800. Stopped insulin drip 06/29, started fenofibrate 06/30. Last trigs - TG 530. Had a repeat CT a/p later in stay - pancreas appeared normal; previous inflammation resolved. MRCP negative for CBD stone or pancreatic duct abnormalities. repeat LFTs and lipase wnl on 07/06/23. defer on repeat CT at this time - low suspicion for pancreatic pseudocyst formation. (5) Abdominal pain: Plan: see above cont dilaudid prn for pain, but counseled patient this is going to make her severe constipation worse cont carafate + PPI if any pain is from gastritis, etc suspect abd pain is multifactorial - recent pancreatitis, L groin infected fluid collection (suspected), ?gastritis, ?IBS, and severe opiate-induced constipation (6) Hypertriglyceridemia: Plan: see above SEVERE at presentation (>2000) now on fenofibrate 145mg daily (7) Poorly controlled type 2 diabetes mellitus: Plan: Uncontrolled severe hyperglycemia on presentation with BG>800 HbA1c 16% initially on insulin drip, then transitioned to glargine and novolog on 06/30/23. BSGs remain stable/acceptable at this time. (8) Neuropathy: Plan: cont gabapentin 800mg QID (9) JOYCE (generalized anxiety disorder): Plan: cont sertraline, etc (10) Depression: Plan: cont sertraline, etc (11) Fibromyalgia: Plan: cont gabapentin, other meds (12) CAD (coronary artery disease): Plan: Hx cardiac stent cont metoprolol succ losartan on hold due to low-normal BPs uncertain why she is not on aspirin or plavix at baseline echo this admission wnl - normal LV function; normal LV wall motion; no valvular vegetations (13) GERD with esophagitis: Plan: cont PPI BID cont carafate QID in the event some of her upper abd pain has been from the esophagus and/or stomach itself (14) Hypertension: Plan: losartan on hold remains on metoprolol succ at HS BPs have been low or low-normal - hold met succ, lowered dose to meto tartrate 12.5mg BID with improved BPs (15) IBS (irritable bowel syndrome): Plan: noted has IBS-C likely contributing to her ongoing abd pain (16) Volume overload: Plan: weight is 10+ kg up from admission has JVD and significant edema in the legs lasix 20mg IV this am, and 20mg of PO lasix this afternoon cont metoprolol BMP am shoot for net neg 1 to 1.5 liters each day low albumin, copious IV fluid administration in the setting of pancreatitis, etc all to blame (17) Constipation due to opioid therapy: Plan: mod-severe on abd x-rays most of colon with stool she had been assuming since she was passing liquid stool that she wasn't constipated discussed overflow stooling extensively with her s/p golytely yesterday - 3 large BMs by report with improved pain refusing to do any further prep willing to take dulcolax give dulcolax x 1 today start miralax Plan DVT proph - lovenox daily PT consult requested updated grand-daughter & fiance at bedside today Admission and Anticipated Discharge Date Admission Date: June 27, 2023 Subjective when golytely was started yesterday she had 2 large BMs in the afternoon/evening she had another stool overnight total 3 stools since yesterday at this time, however, she declines any further golytely, stating it caused her to feel lightheaded?? she is willing to take dulcolax she continues with intermittent, sharp upper abd pains as well as pain over the left groin she did experience pain relief with having the bowel movements has appetite eating well no nausea or emesis grand-daughter and fiance at bedside tele overnight wnl Review of Systems Review of Systems: gen - no fevers or chills cv - no cp, no orthopnea; ongoing edema - she is frustrated by this pulm - no dyspnea GI - abdominal wall swelling/bloating/distension from constipation, edema, etc psych - less tearful this weekend Physical Exam Physical Exam: gen - best she has looked all week, occasional twinge of pain during the visit mouth - MMM neck - JVD remains with +hepatojugular reflex heart - RRR, s1 s2, no murmur lungs - CTA b/l but decreased BS bases b/l abd - soft, no peritoneal signs, still mildly tender upper abdomen but much less than earlier in the week; no HSM; still mildly distended due to body wall edema; BS+ ext - 1+ edema b/l - improving; pulses 2+ b/l psych - a/o x 3 Results & Data Results & Data Vital Signs (Past 12 Hours) Vital Signs Temp Pulse Resp BP Pulse Ox O2 Del Method 07/08/23 15:32 36.3 C L 67 18 120/72 92 Room Air 07/08/23 11:00 37.1 C 71 18 148/84 H 92 Nasal Cannula Laboratory Results Laboratory Results - last 24 hr 07/08/23 07/08/23 07/08/23 07:01 07:16 10:59 WBC 5.08 RBC 3.03 L Hgb 9.3 L Hct 28.0 L MCV 92.4 MCH 30.7 MCHC 33.2 RDW Std Deviation 47.0 H RDW Coeff of [place] 13.8 Plt Count 213 MPV 10.3 Sodium 139 Potassium 4.0 Chloride 103 Carbon Dioxide 30 Anion Gap 6 BUN 9 Creatinine 0.67 Est Cr Clr Drug Dosing 102.8 Est GFR ( Amer) 109.2 Est GFR (Non-Af Amer) 94.2 BUN/Creatinine Ratio 13.4 Glucose 175 H POC Glucose 178 H 172 H Calcium 8.5 L Diagnostic Findings Microbiology 07/06/23 18:51 Blood Aerobic Blood Culture - Preliminary No growth in Aerobic bottle after 48 hours. 07/06/23 18:51 Blood Anaerobic Blood Culture - Preliminary No growth in Anaerobic bottle after 48 hours. 07/06/23 18:38 Blood Aerobic Blood Culture - Preliminary No growth in Aerobic bottle after 48 hours. 07/06/23 18:38 Blood Anaerobic Blood Culture - Preliminary No growth in Anaerobic bottle after 48 hours. 07/04/23 Unknown Groin Gram Stain - Final 07/04/23 Unknown Groin Aerobic and Anaerobic Culture - Preliminary No growth to date. 07/05/23 06:11 Blood Aerobic Blood Culture - Preliminary No growth in Aerobic bottle after 48 hours. 07/05/23 06:11 Blood Anaerobic Blood Culture - Preliminary No growth in Anaerobic bottle after 48 hours. 07/05/23 05:57 Blood Aerobic Blood Culture - Preliminary No growth in Aerobic bottle after 48 hours. 07/05/23 05:57 Blood Anaerobic Blood Culture - Preliminary No growth in Anaerobic bottle after 48 hours. 07/03/23 12:44 Blood Aerobic Blood Culture - Final Coag neg staph not lugdunensis 07/03/23 12:44 Blood Anaerobic Blood Culture - Final Coag neg staph not lugdunensis Bacillus species not anthracis 07/03/23 12:19 Blood Aerobic Blood Culture - Final Coag neg staph not lugdunensis 07/03/23 12:19 Blood Anaerobic Blood Culture - Final Coag neg staph not lugdunensis 07/03/23 12:50 Urine,Clean Catch Urine Culture - Final Lactobacillus species PG Care Time/CCT Total # of Minutes Spent Total Time Spent with Patient: Total time spent is greater than 50% in coordination of care (as documented) at patient's floor/unit and/or counseling patient: Coding Level of Care Code 41340 SUB INP/OBS CARE 350MIN Diagnoses Groin fluid collection R18.8 Bacteremia R78.81 S/P left inguinal hernia repair Z98.890; Z87.19 Pancreatitis K85.90 Abdominal pain R10.9 Hypertriglyceridemia E78.1 Poorly controlled type 2 diabetes mellitus E11.65 Neuropathy G62.9 JOYCE (generalized anxiety disorder) F41.1 Depression F32.9 Fibromyalgia M79.7 CAD (coronary artery disease) I25.10 GERD with esophagitis K21.00 Hypertension I10 IBS (irritable bowel syndrome) K58.9 Volume overload E87.70 Constipation due to opioid therapy K59.03; T40.2X5A
[2023-07-08] MEDS: POLYETHYLENE (MIRALAX) 17 GM PACK PO ONE (16:56)
[2023-07-08] MEDS: POTASSIUM CHLORIDE CRTAB 20 MEQ TABCR PO STA (16:57)
[2023-07-08] MEDS: bisacodyL 5 MG TABEC PO ONE (16:57)
[2023-07-08] MEDS: FUROSEMIDE 20 MG TAB PO ONE (17:13)
[2023-07-09 06:20] LABS: BUN Creatinine Ratio 11.8 (10-20); Calcium 8.6 mg/dl (8.6-10.3); Creatinine Clr Calc Pharmacy 90.3 ml/min; Est GFR (African American) 97.4 ml/min; Est GFR (Non-African American) 84.1 ml/min; Magnesium 1.9 mg/dl (1.7-2.4); Potassium 3.7 mmol/L (3.5-5.1)
[2023-07-09] MEDS: VANCOMYCIN LEVEL ONE (07:30)
[2023-07-09] MEDS: POLYETHYLENE (MIRALAX) 17 GM PACK PO SCH (08:38)
[2023-07-09] MEDS: bisacodyL 5 MG TABEC PO SCH (08:40)
[2023-07-09] MEDS: FUROSEMIDE INJ 20 MG/2 ML VIAL IV ONE (08:40)
--- NOTE | 2023-07-09 08:53 | Surgery Progress Note ---
Date of Service July 09, 2023 Assessment & Plan (1) Groin fluid collection: Plan: s/p Percutaneous fluid aspiration 07/04/23 approximately 1cc was aspirated and send for cultures NGTD Denies fevers/chills VSS Wbc yesterday 5, per primary note is to have ID consult today I did not appreciate any redness or cellulitis at LLQ post surgical site Patient reports she is still having pain and discomfort in this area will likely need some pain medication on d/c Explained to patient that she can follow up with Dr. Red 1 week from discharge to discuss possible explant of mesh, pt verbalized understanding. Admission and Anticipated Discharge Date Admission Date: June 27, 2023 Subjective patient reports 7/10 abd pain in LLQ and back pain Tolerating reg diet +BM Denies fevers, or chills Review of Systems Constitutional: no fever and no chills Respiratory: no dyspnea Cardiovascular: no chest pain Gastrointestinal: + abdominal pain; no vomiting Genitourinary: no dysuria Musculoskeletal: + back pain; no muscle weakness Integumentary: no rash Physical Exam Physical Exam: alert oriented Constitutional: cooperative and comfortable; no acute distress Respiratory: normal respiratory effort and able to speak in complete sentences; no respiratory distress Cardiovascular: Rate/Rhythm: regular rate (70) Gastrointestinal (Abdomen): Inspection/Auscultation: + abdominal surgical scar (LLQ no redness or cellulitis noted ); abdomen not distended Percussion/Palpation: + abdomen tender and abdomen soft Musculoskeletal: no cyanosis or clubbing, extremities motor strength 5/5 Results & Data Vital Signs (Past 12 Hours) Vital Signs Temp Pulse Pulse Resp BP Pulse Ox O2 Del Method 07/09/23 07:23 97.7 F 70 17 126/76 90 Room Air 07/09/23 03:53 98.2 F 74 20 150/83 H 90 Room Air 07/08/23 23:30 97.9 F 88 20 134/75 91 Room Air 07/08/23 22:01 77 Results Complete Blood Count Results: RBC 3.03 M/uL (4.20-5.40) L 07/08/23 WBC 5.08 K/ul (4.8-10.8) 07/08/23 Hgb 9.3 g/dl (12.0-16.0) L 07/08/23 Hct 28.0 % (37.0-47.0) L 07/08/23 Plt Count 213 K/uL (130-400) 07/08/23 Results CMP Results: Na 139 mmol/L (136-145) 07/09/23 K 3.7 mmol/L (3.5-5.1) 07/09/23 Cl 102 mmol/L (98-107) 07/09/23 CO2 33 mmol/L (21-32) H 07/09/23 Anion Gap 4 (3-11) 07/09/23 BUN 9 mg/dl (6-23) 07/09/23 Creatinine 0.76 mg/dl (0.6-1.2) 07/09/23 Estimated GFR ( Amer) 97.4 ml/min 07/09/23 Estimated GFR (Non-Af Amer) 84.1 ml/min 07/09/23 BUN/Creatinine Ratio 11.8 (10-20) 07/09/23 Glu 190 mg/dl (70-99(Fasting)) H 07/09/23 Ca 8.6 mg/dl (8.6-10.3) 07/09/23 Phosphorus Level 2.9 mg/dl (2.5-4.9) 06/28/23 Total Bilirubin 0.4 mg/dl (0.2-1.0) 07/06/23 Direct Bilirubin 0.1 mg/dl (0-0.2) 07/06/23 AST 19 U/L (13-39) 07/06/23 ALT 18 U/L (7-52) 07/06/23 Alkaline Phosphatase 108 U/L (34-104) H 07/06/23 TP 5.6 gm/dl (6.0-8.3) L 07/06/23 Albumin 2.9 gm/dl (3.4-5.0) L 07/06/23 Globulin 2.2 gm/dl (2.5-4.0) L 07/03/23 Albumin/Globulin Ratio 1.3 (0.9-2) 07/03/23 PG Care Time/CCT Total # of Minutes Spent Total Time Spent with Patient: Total time spent is greater than 50% in coordination of care (as documented) at patient's floor/unit and/or counseling patient: Coding Level of Care Code 86489 SUB INP/OBS CARE 1/25MIN Diagnoses Groin fluid collection R18.8
--- NOTE | 2023-07-09 11:53 | Pharmacy Report ---
Pharmacy PK ABX Note - Date of Service July 09, 2023 - Assessment and Plan Assessment 07/08: Discussed with hospitalist, ID to be consulted today and will continue with vancomycin for now. Lactobacillus in urine and bacillus species (not anthracis) in blood (possible contamination?), Staph epidermidis sensitive to oxacillin. Source of bacteremia is like related to groin fluid collection s/p inguinal hernia repair w/ mesh in March 2023. 07/05: Reviewed vancomycin level, predicting a goal AUC/FUENTES within therapeutic range, gram positive bacilli in blood culture resulted bacilli not anthracis, no sensitivities to follow (vancomycin is the preferred drug for treatment). Afebrile x 24 hours, repeat blood cultures negative x24 hours. Suspected source of bacteremia groin fluid collection, culture thus far negative. 07/04: 62 year old F receiving vancomycin for treatment of gastrointestinal infection/bacteremia. Pertinent microbiologic data includes: blood culture growing GPCs in clusters (2/4 anaerobic bottles) and Gram positive bacilli (1/4 anaerobic bottle) BCID resulted staph epidermidis, no MecA resistance. Patient was febrile overnight, WBC WNL, and renal function normal. Day # 1 of antimicrobial therapy. Plan Vancomycin * Maintenance dose: 750 mg IV every 8 hours * Continue current regimen. * Regimen is predicted to achieve target AUC/FUENTES of 400-600 mg/L.hr * Will order follow-up vanco level if therapy continues beyond another 48 hours Pharmacy will continue to follow and will adjust dose/frequency as necessary. Thank you. Pharmacy has transitioned to AUC monitoring for vancomycin. AUC/FUENTES is the preferred PK/PD target and is associated with decreased risk of nephrotoxicity compared to traditional trough targets.
--- NOTE | 2023-07-09 15:58 | Infectious Disease Consult ---
Date of Consultation July 09, 2023 Assessment & Plan (1) Bacteremia: (2) Groin fluid collection: Plan #Left groin collection, presumably infected s/p aspiration 07/03, no growth #MSSE bacteremia, cleared 07/04 #Bacillis bacteremia on 07/02, clear 07/04 #DM #Pancreatitis #Left inguinal hernia repair with mesh 03/26/23 63 yo F with h /o HTN, HLD, DM (prior A1c 11.7%), GERD, IBS-D Crohns?, CAD and Bipolar d/o, anxiety, chronic narcotic use, fibromyalgia, prior hospitalizations for pancreatitis in past year, left open inguinal repair with mesh on 03/26/23 admitted on 06/26 with hyperglycemia and abdominal pain. On admission, 06/26 afebrile, found to have TG 2068, imaging found stranding near pancreatic head on CT. She was treated with supportive care with improved TG and lipases. On 07/02 she developed fevers to 39.4, MRCP showed No acute abnormalities. No acute abnormality is seen, in particular no evidence of pancreatitis in this patient with history of recent pancreatitis. No evidence of acute peripancreatic collections. 07/02/ aneaerobic BCx +GPC, Staph epi no mecA resistance (R to Tetracycyline, Bactrim) and 03/29 anaerobic GP bacilli, Bacillis not antracis. She was started on Vancomycin. CT performed which showed fluid collection at left groin near prior hernia site. U/S showed this to be complex fluid collection present, about 5cm in size. On 07/03 she underwent u/s guided left groin aspiration. Approximately 1 mL of bloody purulent appearing fluid was aspirated Cx are no growth, final. Underwent MRI lumbar spine d/t pain, which was negative for infection. 2DE no vegetation Colonoscopy and EGD 11/2022 gastric polyps, gastritis colon polyp, non bleeding internal hemorrhoids. She was seen by surgery, no intervention in the hospital, plan to see patient and remove mesh in 2-3 weeks as outpatient. ID was consulted this afternoon for abx recommendations. Fever curve reviewed, afebrile since 07/03. Blood cultures no growth on 07/04 and 07/05 Discussion: Suspect MSSE from groin. Bacillus is likely contaminant. She was on vancomycin on 07/02 and area was aspirated on 07/03 which was no growth. i dont suspect affected the yield given findings of purulence in fluid from IR. She has cleared her bacteremia on 07/04. 2De and MRI L spine negative for potential seeding. Defervesced quickly. Typically ConS in blood needs 5-7 days of treatment. Would not use Linezolid with both trazadone and sertraline. Staph epi is meth sensitive so doesnt need IV Vancomycin, can narrow to cefazolin and discharge home on oral cephalosporin until mesh is removed. Recommend DC Vancomycin Start Cefazolin 2G IV TID while in patient When patient is ready for discharge can change to po Cefadroxil 1G PO BID through 48 hours post mesh removal (would provide 2-3 weeks therapy depending on when she sees surgery) as long as tolerating orals Please call ID with any questions will s/o Odette Dietz MD Infectious Diseases [facility], [facility] Consultation Information This patient recommendation is based on a telemedicine consult request which was completed asynchronously through chart review and information provided by the primary physician. The patient was not seen or examined today. The evaluation is consultative in nature and all patient care and treatment decisions can either be accepted or rejected by the patient's primary hospital-based treating physician using their own independent medical judgment for their patient. [facility] contact information: Please call [facility] Call Center . (Phone Number For Physician Use Only) Time Spent Reviewing Chart: 31+ minutes History of Present Illness Reason for Consultation: bacteremia, groin abscess Requesting Physician: Dr. Flowers Attending Physician: Gm Flowers MD History of Present Illness 63 yo F with h /o HTN, HLD, DM (prior A1c 11.7%), GERD, IBS-D Crohns?, CAD and Bipolar d/o, anxiety, chronic narcotic use, fibromyalgia, prior hospitalizations for pancreatitis in past year, left open inguinal repair with mesh on 03/26/23 admitted on 06/26 with hyperglycemia and abdominal pain. On admission, 06/26 afebrile, found to have TG 9, imaging found stranding near pancreatic head on CT. She was treated with supportive care with improved TG and lipases. On 07/02 she developed fevers to 39.4, MRCP showed No acute abnormal ities. No acute abnormality is seen, in particular no evidence of pancreatitis in this patient with history of recent pancreatitis. No evidence of acute peripancreatic collections. 07/02 2/4 aneaerobic BCx +GPC, Staph epi no mecA resistance (R to Tetracycyline, Bactrim) and 1/4 anaerobic GP bacilli, Bacillis not antracis. She was started on Vancomycin. CT performed which showed fluid collection at left groin near prior hernia site. U/S showed this to be complex fluid collection present, about 5cm in size. On 07/03 she underwent u/s guided left groin aspiration. Approximately 1 mL of bloody purulent appearing fluid was aspirated Cx are no growth, final. Underwent MRI lumbar spine d/t pain, which was negative for infection. 2DE no vegetation Colonoscopy and EGD 11/2022 gastric polyps, gastritis colon polyp, non bleeding internal hemorrhoids. She was seen by surgery, no intervention in the hospital, plan to see patient and remove mesh in 2-3 weeks as outpatient. ID was consulted this afternoon for abx recommendations. Fever curve reviewed, afebrile since 07/03. Blood cultures no growth on 07/04 and 07/05 Allergies Allergy/AdvReac Type Severity Reaction Status Date / Time Iodinated Contrast Media Allergy Severe STOP Verified 04/04/23 08:49 BREATHING bupropion [From Wellbutrin] Allergy Mild Hallucinati Verified 04/04/23 08:49 ng divalproex sodium Allergy Mild Vomiting Verified 04/04/23 08:49 [From Depakote] ketorolac [From Toradol] Allergy Mild can not Verified 04/04/23 08:49 void metronidazole Allergy Mild VOMITS Verified 04/04/23 08:49 nitrofurantoin Allergy Mild VOMITS Verified 04/04/23 08:49 pregabalin [From Lyrica] Allergy Mild Hallucinati Verified 04/04/23 08:49 ng strawberry Allergy Mild Hives Verified 04/04/23 08:49 tramadol Allergy Mild can not Verified 04/04/23 08:49 void ziprasidone [From Geodon] Allergy Mild Vomiting Verified 04/04/23 08:49 Home Medications Medication Instructions Recorded Confirmed Type insulin lispro 100 unit/mL 1 sliding scale dose subcut TIDM 10/30/22 06/27/23 History subcutaneous pen (Humalog KwikPen (U-100) Insulin) loperamide 2 mg capsule 2 mg PO BID PRN Diarrhea 12/04/22 06/27/23 History pantoprazole 40 mg tablet,delayed 40 mg PO BID #60 tabs 12/12/22 06/27/23 Rx release gabapentin 800 mg tablet 800 mg PO QID #120 tabs 01/25/23 06/27/23 Rx metoprolol succinate 25 mg 37.5 mg (1.5 x 25 mg) PO HS #45 01/25/23 06/27/23 Rx tablet,extended release 24 hr tabs ondansetron 4 mg disintegrating 4 mg translingual Q8H PRN Nausea 01/25/23 06/27/23 Rx tablet #60 tabs docusate sodium 100 mg capsule 100 mg PO BID #60 caps 03/28/23 06/27/23 Rx insulin glargine 100 unit/mL (3 15 unit (0.15 mL) subcut BID #15 mL 03/28/23 06/27/23 Rx mL) subcutaneous pen (Lantus Solostar U-100 Insulin) sennosides 8.6 mg tablet (Senokot) 17.2 mg (2 x 8.6 mg) PO QAM #60 03/28/23 06/27/23 Rx tabs losartan 25 mg tablet 25 mg PO QAM #90 tabs 03/29/23 06/27/23 Rx sertraline 50 mg tablet 150 mg (3 x 50 mg) PO HS 90 days 03/29/23 06/27/23 Rx #270 tabs trazodone 100 mg tablet 100 mg PO HS #90 tabs 04/12/23 06/27/23 Rx blood-glucose sensor (Dexcom G7 #3 ea 05/11/23 06/27/23 Rx Sensor device) oxycodone-acetaminophen 7.5 mg-325 1 tab PO Q8H PRN Pain 30 days #90 06/25/23 06/27/23 Rx mg tablet tabs baclofen 10 mg tablet 10 mg PO TID PRN Muscle Spasm 06/27/23 06/27/23 History diclofenac sodium 1 % topical gel 4 g EXT QID PRN as directed 06/27/23 06/27/23 History (Voltaren Arthritis Pain) Patient History Medical History Abdominal pain Hypertriglyceridemia Incarcerated left inguinal hernia Fever Chronic back pain History of chest pain Fibromyalgia History of pulmonary embolism roughly 15yrs ago--unknown cause--no blood thinners COVID-19 11/08/2022 @ [facility]--head cold symptoms, slight cough--no symptoms now IBS (irritable bowel syndrome) TIA (transient ischemic attack) "more than 15yrs ago"--unknown cause, no deficits--no neurologist Hypertension Hyperlipidemia GERD with esophagitis Diabetes IDDM Depression CAD (coronary artery disease) Surgical History S/P left inguinal hernia repair (03/26/23) Open Left Inguinal Hernia Repair with Mesh(Left) - Pollo Red DO History of fusion of cervical spine normal ROM History of repair of right rotator cuff History of bladder suspension procedure History of laparoscopy lysis of adhesions removal History of esophagogastroduodenoscopy (EGD) History of colonoscopy History of tooth extraction all teeth removed Hx of cholecystectomy H/O tubal ligation H/O: hysterectomy bhupendra bso H/O hernia repair x2 S/P coronary artery stent placement 5yrs ago @ [facility]--1 stent total H/O cardiac catheterization x1 roughly 5 yrs ago @ [facility]--1 stent placed--follows with Dr. Moy Family History Mother Respiratory arrest Coronary heart disease Hypertension Father Cancer Sister Diabetes Multiple sclerosis Other No family history of adverse response to anesthesia Social History Smoking Status: Former smoker packs per day: 1; Second Hand Exposure: No; Do You Dip or Chew Tobacco: No; Hx Alcohol Use: No Hx Substance Use: No Preferred Language: Hebrew Communication Ability: Effective Business Planning Analyst Required: No Beliefs That Will Affect Care: None Current Living Situation: Alone Feels Safe at Home: Yes Physical Exam Physical Exam: Not examined Results & Data Vital Signs (Past 12 Hours) Vital Signs Temp Pulse Resp BP Pulse Ox O2 Del Method 07/09/23 15:03 37.0 C 70 18 135/79 93 Room Air 07/09/23 11:07 36.9 C 68 16 121/70 92 Room Air 07/09/23 07:23 36.5 C 70 17 126/76 90 Room Air Laboratory Results Laboratory Results - last 48 hr 07/07/23 07/07/23 07/08/23 15:53 20:06 07:01 WBC RBC Hgb Hct MCV MCH MCHC RDW Std Deviation RDW Coeff of Savanah Plt Count MPV Sodium Potassium Chloride Carbon Dioxide Anion Gap BUN Creatinine Est Cr Clr Drug Dosing Est GFR ( Amer) Est GFR (Non-Af Amer) BUN/Creatinine Ratio Glucose POC Glucose 124 H 93 178 H Calcium Magnesium Random Vancomycin 07/08/23 07/08/23 07/08/23 07:16 10:59 15:56 WBC 5.08 RBC 3.03 L Hgb 9.3 L Hct 28.0 L MCV 92.4 MCH 30.7 MCHC 33.2 RDW Std Deviation 47.0 H RDW Coeff of Savanah 13.8 Plt Count 213 MPV 10.3 Sodium 139 Potassium 4.0 Chloride 103 Carbon Dioxide 30 Anion Gap 6 BUN 9 Creatinine 0.67 Est Cr Clr Drug Dosing 102.8 Est GFR ( Amer) 109.2 Est GFR (Non-Af Amer) 94.2 BUN/Creatinine Ratio 13.4 Glucose 175 H POC Glucose 172 H 133 H Calcium 8.5 L Magnesium Random Vancomycin 07/08/23 07/09/23 07/09/23 20:57 05:24 07:15 WBC RBC Hgb Hct MCV MCH MCHC RDW Std Deviation RDW Coeff of Savanah Plt Count MPV Sodium 139 Potassium 3.7 Chloride 102 Carbon Dioxide 33 H Anion Gap 4 BUN 9 Creatinine 0.76 Est Cr Clr Drug Dosing 90.3 Est GFR ( Amer) 97.4 Est GFR (Non-Af Amer) 84.1 BUN/Creatinine Ratio 11.8 Glucose 190 H POC Glucose 150 H 196 H Calcium 8.6 Magnesium 1.9 Random Vancomycin 16.8 07/09/23 11:06 WBC RBC Hgb Hct MCV MCH MCHC RDW Std Deviation RDW Coeff of Savanah Plt Count MPV Sodium Potassium Chloride Carbon Dioxide Anion Gap BUN Creatinine Est Cr Clr Drug Dosing Est GFR ( Amer) Est GFR (Non-Af Amer) BUN/Creatinine Ratio Glucose POC Glucose 182 H Calcium Magnesium Random Vancomycin Microbiology 07/04/23 Unknown Groin Gram Stain - Final 07/04/23 Unknown Groin Aerobic and Anaerobic Culture - Final No growth 07/06/23 18:51 Blood Aerobic Blood Culture - Preliminary No growth in Aerobic bottle after 48 hours. 07/06/23 18:51 Blood Anaerobic Blood Culture - Preliminary No growth in Anaerobic bottle after 48 hours. 07/06/23 18:38 Blood Aerobic Blood Culture - Preliminary No growth in Aerobic bottle after 48 hours. 07/06/23 18:38 Blood Anaerobic Blood Culture - Preliminary No growth in Anaerobic bottle after 48 hours. 07/05/23 06:11 Blood Aerobic Blood Culture - Preliminary No growth in Aerobic bottle after 48 hours. 07/05/23 06:11 Blood Anaerobic Blood Culture - Preliminary No growth in Anaerobic bottle after 48 hours. 07/05/23 05:57 Blood Aerobic Blood Culture - Preliminary No growth in Aerobic bottle after 48 hours. 07/05/23 05:57 Blood Anaerobic Blood Culture - Preliminary No growth in Anaerobic bottle after 48 hours. 07/03/23 12:44 Blood Aerobic Blood Culture - Final Coag neg staph not lugdunensis 07/03/23 12:44 Blood Anaerobic Blood Culture - Final Coag neg staph not lugdunensis Bacillus species not anthracis 07/03/23 12:19 Blood Aerobic Blood Culture - Final Coag neg staph not lugdunensis 07/03/23 12:19 Blood Anaerobic Blood Culture - Final Coag neg staph not lugdunensis 07/03/23 12:50 Urine,Clean Catch Urine Culture - Final Lactobacillus species Diagnostic Findings Lumbar Spine MRI 07/06/23 17:44 Exam(s): MRI L SPINE Without Contrast EXAM: MR Lumbar Spine Without Intravenous Contrast CLINICAL HISTORY: Reason for exam: staph bacteremia, severe back pain; ro abscess. TECHNIQUE: Magnetic resonance images of the lumbar spine without intravenous contrast in multiple planes. COMPARISON: Comparison made to prior CT scan of abdomen and pelvis from July 01, 2023. FINDINGS: Vertebrae: There are 5 lumbar type vertebral bodies with a mild generalized curve to the left and normal lumbar lordosis. There is normal vertebral body height and alignment. The bone marrow signal is heterogeneous with reactive endplate changes. No acute fracture. Spinal cord: The conus is normal size, shape and signal characteristics, terminating at L1-L2. Soft tissues: Advanced atrophy of the iliopsoas, paraspinous or spinous musculature. The aorta and IVC flow voids are intact. The visions kidneys are unremarkable. There is extensive subcutaneous edema over the lumbar and sacral spine. DISCS/SPINAL CANAL/NEURAL FORAMINA: L1-L2: There is mild disc degeneration with annular disc bulge asymmetric to the right causing mild subarticular recess stenosis, with disc extending to the neural foramina without evidence of impingement or significant stenosis. There is minimal facet arthropathy with mild synovitis. L2-L3: There is mild disc degeneration with annular disc bulge flattening the thecal sac, disc extending into the neural foramina without evidence of impingement or significant stenosis. There is mild facet arthropathy with mild synovitis. L3-L4: There is mild disc degeneration with annular disc bulge causing a mild subarticular recess stenosis, or disc extend to the neural foramina without evidence of impingement or significant stenosis. There is mild facet arthropathy with mild to moderate synovitis. L4-L5: Moderate disc degeneration with annular disc bulge asymmetric to the right causing a mild subarticular recess stenosis, with disc and osteophyte extend to the neural foramina causing a mild right stenosis without evidence of impingement. There is mild facet arthropathy with mild to moderate synovitis. L5-S1: Moderate degeneration with annular disc bulge flattening the ventral thecal sac, with disc and osteophyte extend to the neural foramina causing mild right and moderate left stenosis with mild impingement of the left L5 nerve root ganglion. There is mild facet arthropathy with mild synovitis. IMPRESSION: 1. Moderate disc degeneration at L4-5 and L5-S1 with mild disc degeneration at L1-2, L2-3 and L3-4 with annular disc bulging stenosis at L1-L2, L3-4 and L4-5 without evidence of neural impingement. 2. There is no spinal canal stenosis. 3. There is mild right L4-5, mild right and moderate left L5-S1 neural foraminal stenosis with impingement of the left L5 nerve root ganglion. 4. There is minimal to mild facet arthropathy with mild to moderate synovitis. 5. No evidence of fracture, infection, tumor or arachnoiditis. Electronically signed by: Janet Arellano MD 07/06/23 23:29 PM Abdomen X-Ray 07/07/23 08:09 XR abdomen min 2V HISTORY: 62 years-old Female severe upper abd pain, CT a/p neg acute upper abdominal pain COMPARISON: CT 07/01/2023 TECHNIQUE: 3 views of the abdomen FINDINGS: Cholecystectomy. Moderate colonic fecal retention. Distended debris-filled stomach. Small pleural effusions with mild bibasilar atelectasis. Nonobstructive bowel gas pattern. No urolith. No acute fracture. IMPRESSION: 1. Nonobstructive bowel gas pattern. 2. Moderate colonic fecal retention. 3. Cholecystectomy. 4. Small pleural effusions. ACT 112: Negative or not required by law. The above report was generated using voice recognition software. It may contain grammatical, syntax or spelling errors. Electronically signed by: Hayden Moody M.D. 07/07/2023 9:12 AM Medications Administered Current Inpatient Medications Acetaminophen (Acetaminophen 500 Mg Tab) 1,000 mg PO Q8H PRN PRN Reason: Pain or Fever Stop: 08/02/23 23:20 Last Admin: 07/05/23 23:16 Dose: 1,000 mg Baclofen (Baclofen 10 Mg Tab) 10 mg PO TID PRN PRN Reason: Muscle Spasm Stop: 07/28/23 01:15 Bisacodyl (Bisacodyl 5 Mg Tabec) 5 mg PO QAM [facility] Stop: 08/08/23 08:59 Last Admin: 07/09/23 08:40 Dose: 5 mg Dextrose (Dextrose 50% 50 Ml Syringe) 25 - 50 ml IV UD PRN; Protocol PRN Reason: Hypoglycemia Protocol Stop: 07/27/23 20:52 Diclofenac Sodium (Diclofenac Sod 1% Gel 100 Gm Tube) 4 gm EXT QID PRN; Protocol PRN Reason: as directed Stop: 07/28/23 01:15 Enoxaparin Sodium (Enoxaparin Inj 40 Mg/0.4 Ml Syr) 40 mg SQ QAM [facility] Stop: 07/29/23 08:59 Last Admin: 07/09/23 08:39 Dose: 40 mg Fenofibrate (Fenofibrate Nanocrystallized 145 Mg Tablet) 145 mg PO QAM [facility] Stop: 07/31/23 08:59 Last Admin: 07/09/23 08:41 Dose: 145 mg Gabapentin (Gabapentin 800 Mg Tab) 800 mg PO QID [facility] Stop: 07/28/23 08:59 Last Admin: 07/09/23 12:05 Dose: 800 mg Glucagon (Glucagon For Inj 1 Mg Vial) 1 mg SQ UD PRN; Protocol PRN Reason: Hypoglycemia Protocol Stop: 07/27/23 20:52 Glucose (Glucose 10 Tab/Tube) 4 - 8 tab PO UD PRN; Protocol PRN Reason: Hypoglycemia Treatment Stop: 07/27/23 20:52 Glucose (Glucose 40% Gel 15 Gm Tube) 15 - 30 gm PO UD PRN; Protocol PRN Reason: Hypoglycemia Protocol Stop: 07/27/23 20:52 Hydromorphone HCl (Hydromorphone Inj 0.5 Mg/0.5 Ml Syr) 1.5 mg IV Q3H PRN PRN Reason: Severe Pain (Scale 7, 8, 9,10) Stop: 07/13/23 16:27 Last Admin: 07/09/23 08:51 Dose: 1.5 mg Vancomycin HCl 750 mg/ Sodium (Chloride) 265 mls @ 200 mls/hr IV Q8H [facility] Stop: 07/14/23 21:59 Last Infusion: 07/09/23 15:51 Dose: Infused Insulin Aspart (Insulin Aspart Per Unit Charge) 0 units SC ACHS [facility] Stop: 08/02/23 07:29 Last Admin: 07/09/23 12:05 Dose: 10 units Insulin Glargine (Lantus Per Unit Charge) 10 units SQ Q12 [facility] Stop: 07/30/23 20:59 Last Admin: 07/09/23 08:38 Dose: 10 units Losartan Potassium (Losartan Potassium 25 Mg Tab) 25 mg PO QAM [facility] Stop: 07/28/23 08:59 Last Admin: 06/29/23 09:33 Dose: Not Given Magnesium Oxide (Magnesium Oxide 400 Mg Tab) 400 mg PO BID [facility] Stop: 08/05/23 08:59 Last Admin: 07/09/23 08:41 Dose: 400 mg Metoprolol Tartrate (Metoprolol Tartrate 25 Mg Tab) 12.5 mg PO BID [facility] Stop: 08/05/23 20:59 Last Admin: 07/09/23 08:40 Dose: 12.5 mg Miconazole Nitrate (Miconazole Nitrate Powder 85 Gm) 1 appln EXT PRN PRN PRN Reason: Affected Skin Folds Stop: 07/29/23 15:16 Miscellaneous (Carbohydrates For Hypoglycemia ) 15 - 30 gm PO UD PRN PRN Reason: Hypoglycemia Protocol Stop: 07/27/23 20:52 Miscellaneous Information (Vancomycin Consult Active) 1 each N/A UD PRN PRN Reason: Consult Stop: 08/03/23 07:56 Ondansetron HCl (Ondansetron Inj 2 Mg/Ml 2 Ml Vial) 4 mg IV Q4H PRN PRN Reason: Nausea Stop: 07/28/23 01:15 Last Admin: 07/05/23 05:45 Dose: 4 mg Oxycodone HCl (Oxycodone Hcl Ir 5 Mg Tab (Immediate Release)) 10 mg PO Q6H PRN PRN Reason: Mild-Mod Pain (Scale 1-6) Stop: 07/13/23 09:10 Last Admin: 07/08/23 16:39 Dose: 10 mg Pantoprazole Sodium (Pantoprazole 40 Mg Tab) 40 mg PO BID [facility] Stop: 07/28/23 08:59 Last Admin: 07/09/23 08:41 Dose: 40 mg Polyethylene Glycol (Polyethylene (Miralax) 17 Gm Pack) 17 gm PO TID [facility] Stop: 08/08/23 08:59 Last Admin: 07/09/23 13:40 Dose: Not Given Potassium Chloride (Potassium Chloride Crtab 20 Meq Tabcr) 20 meq PO QAM [facility] Stop: 08/07/23 09:44 Last Admin: 07/09/23 08:39 Dose: 20 meq Sertraline HCl (Sertraline Hcl 50 Mg Tablet) 150 mg PO [facility] Stop: 07/28/23 20:59 Last Admin: 07/08/23 20:14 Dose: 150 mg Sucralfate (Sucralfate 1 Gm/10 Ml Udc) 1 gm PO QID [facility] Stop: 08/02/23 17:59 Last Admin: 07/09/23 12:05 Dose: 1 gm Trazodone HCl (Trazodone Hcl 100 Mg Tab) 100 mg PO [facility] Stop: 07/28/23 20:59 Last Admin: 07/08/23 20:14 Dose: 100 mg
[2023-07-09] MEDS: ceFAZolin 2000MG 2,000 MG/15 ML SYR IV SCH (21:48)
[2023-07-09] MEDS: DICYCLOMINE HCL 10 MG CAP PO ONE (23:51)
--- NOTE | 2023-07-10 06:37 | Hospitalist Progress Note ---
Date of Service July 09, 2023 Assessment & Plan (1) Groin fluid collection: Plan: as seen on CT a/p and ultrasound; latter showed the collection is complex in appearance size - about 5cm the collection is in the left groin near previous inguinal hernia repair opera tive site had the inguinal hernia surgery in 03/[address] Red s/p IR aspiration with purulent/bloody obtained last week culture remains negative blood cx's all positive with coag neg staph 1 bottle with bacillus species -- felt to be contaminant repeat blood cultures from 07/04 neg repeat blood cultures from 07/05 neg cytologies neg for malignancy from the fluid collection Appreciate Dr Red's assistance He feels the likely source of her bacteremia is this fluid collection Plans to take out the mesh in about 2 weeks as outpatient baseline crp noted - 15 recheck later this week if she fails to improve from an infectious standpoint would she need the mesh removed sooner?? s/p ID consult today, 07/09 -- recommendations: 1. D/C Vancomycin 2. Start Cefazolin 2g prashanth IV TID while inpatient 3. When discharged - change to po Cefadroxil 1000mg PO BID through 48 hours post mesh removal (would provide 2-3 weeks therapy depending on when she sees surgery) (2) Bacteremia: Plan: 06/27 blood cx's positive - coag neg staph 1 bottle with bacillus species as well -- felt to represent contamination repeat blood cx's 07/04 neg repeat blood cx's 07/05 neg source - suspected to be due to #1 / infected mesh from her inguinal hernia repair no skin source of infection while hospitalized baseline crp 15 echo w/o valvular vegetations MRI lumbar spine without signs of epidural abscess or diskitis no fevers in 72+ hours ID consult appreciated today Recs as listed in bold in #1 above (3) S/P left inguinal hernia repair: Plan: on CT a/p there is a fluid collection in the left groin dedicated u/s obtained with 5cm complex appearing fluid collection IR drainage performed - see #[address] Red performed index surgery in March 2023 - appreciate his consult and recs plans to take out the mesh in 2-3 weeks as outpatient (4) Pancreatitis: Plan: elevated lipase and stranding near pancreatic head on CT at time of admission. thought 2nd to severe hypertriglyceridemia with initial trigs of 2068. Does not drink alcohol and has had cholecystectomy in the past. Had previous episode of acute pancreatitis thought related to medications (statin and HCTZ?). Father had pancreatic cancer. Brother from severe pancreatitis - issue with a "blocked duct." Sister had acute pancreatitis. initially was on insulin drip for high triglycerides; improved from 1999s-->1200-->800. Stopped insulin drip 06/29, started fenofibrate 06/30. Last trigs - TG 530. Had a repeat CT a/p later in stay - pancreas appeared normal; previous inflammation resolved. MRCP negative for CBD stone or pancreatic duct abnormalities. repeat LFTs and lipase wnl on 07/06/23. defer on repeat CT at this time - low suspicion for pancreatic pseudocyst formation. she is tolerating diabetic, low-fat diet w/o N/V/worsening of her abd pain (5) Abdominal pain: Plan: suspect abd pain is multifactorial - recent pancreatitis, L groin infected fluid collection (suspected), ?gastritis, ?IBS, and severe opiate-induced constipation cont dilaudid prn for pain, but have counseled patient multiple times this is going to make her severe constipation worse she is aware we need to start weaning the IV dilaudid off in order for her to return home - hopefully in a few days cont carafate + PPI if any pain is from gastritis, etc did give 1 dose of 10mg bentyl today for additional pain relief (6) Hypertriglyceridemia: Plan: see above SEVERE at presentation (>2000) now on fenofibrate 145mg daily last trigs level - 530 (7) Poorly controlled type 2 diabetes mellitus: Plan: Uncontrolled severe hyperglycemia on presentation with BG>800 HbA1c 16% initially on insulin drip, then transitioned to glargine and novolog on 06/30/23. BSGs remain stable/acceptable at this time. appreciate diabetes education consult recs at discharge Ms EsparzaUpton from diabetes education advises the following regimen - lantus 30 units daily humalog 5 units fixed with meals + correction factor of 25 for BSG greater than 150 (8) Neuropathy: Plan: cont gabapentin 800mg QID (9) JOYCE (generalized anxiety disorder): Plan: cont sertraline, etc (10) Depression: Plan: cont sertraline, etc (11) Fibromyalgia: Plan: cont gabapentin, other meds (12) CAD (coronary artery disease): Plan: Hx cardiac stent cont metoprolol succ losartan on hold due to low-normal BPs uncertain why she is not on aspirin or plavix at baseline - would advise, at minimum, 81mg daily of asa echo this admission wnl - normal LV function; normal LV wall motion; no valvular vegetations (13) GERD with esophagitis: Plan: cont PPI BID cont carafate QID in the event some of her upper abd pain has been from the esophagus and/or stomach itself (14) Hypertension: Plan: losartan on hold typically on metoprolol succ at HS 37.5mg BPs have been low or low-normal much of the stay thus, cont to hold met succ, changed to meto tartrate 12.5mg BID with improved BPs hopefully can resume her usual meto succ at d/c (15) IBS (irritable bowel syndrome): Plan: noted likely contributing to her ongoing abd pain trial of bentyl 10mg x 1 this afternoon (16) Volume overload: Plan: weight is 10+ kg up from admission has JVD and significant edema in the legs she has been net neg 1+ liter each day since starting IV lasix a few days ago cont IV lasix 20mg daily offered to give her an additional dose this evening - declined cont metoprolol BMP am shoot for net neg 1 to 1.5 liters each day low albumin, copious IV fluid administration in the setting of pancreatitis, etc all to blame for the volume overload suspect she will need several days of PO lasix post-discharge (17) Constipation due to opioid therapy: Plan: mod-severe on abd x-rays most of colon with stool she had been assuming since she was passing liquid stool that she wasn't constipated discussed overflow stooling extensively with her s/p golytely - 3 large BMs by report with improved pain refusing to do any further prep willing to take dulcolax give dulcolax x 1 again today give 3 doses of miralax today maintenance - advise senna 2 tabs daily + miralax 1 serving daily Plan DVT proph - lovenox daily PT consult requested and appreciated updated grand-daughter & fiance at bedside yesterday Admission and Anticipated Discharge Date Admission Date: June 27, 2023 Subjective has had 10+ stools throughout the day today has noted a major difference in how her abdomen feels with that said she mentions she has ongoing pain in the upper abdomen as well as LLQ she continues to request IV dilaudid at least 2-3x's daily despite her pain she has had NO nausea or vomiting eating 100% of meals has a good appetite had a little shortness of breath earlier today tele - stable, NSR ID consult completed - I discussed with her the plan from ID standpoint Review of Systems Review of Systems: gen - no fevers, chills or sweats; eating very well cv - no cp, no orthopnea; edema improving GI - see HPI pulm - mild dyspnea, no cough, no wheeze Physical Exam Physical Exam: gen - comfortable, nontoxic appearing, NAD, lying nearly flat in bed w/o orthopnea mouth - MMM neck - JVD remains with +hepatojugular reflex heart - RRR, s1 s2, no murmur lungs - decreased BS bases b/l and mild rales bases; no distress; no wheezing abd - soft, no peritoneal signs, still mildly tender upper abdomen to palpation; mild pain LLQ; distension resolved; no HSM; BS+ ext - <1+ edema b/l - improving; pulses 2+ b/l psych - a/o x 3 Results & Data Results & Data Vital Signs (Past 12 Hours) Temp Pulse Pulse Resp BP Pulse Ox O2 Del Method 07/09/23 15:03 37.0 C 70 18 135/79 93 Room Air 07/09/23 11:07 36.9 C 68 16 121/70 92 Room Air 07/09/23 07:23 36.5 C 70 17 126/76 90 Room Air Laboratory Results Laboratory Results - last 48 hr 07/08/23 07/08/23 07/08/23 07:01 07:16 10:59 WBC 5.08 RBC 3.03 L Hgb 9.3 L Hct 28.0 L MCV 92.4 MCH 30.7 MCHC 33.2 RDW Std Deviation 47.0 H RDW Coeff of [place] 13.8 Plt Count 213 MPV 10.3 Sodium 139 Potassium 4.0 Chloride 103 Carbon Dioxide 30 Anion Gap 6 BUN 9 Creatinine 0.67 Est Cr Clr Drug Dosing 102.8 Est GFR ( Amer) 109.2 Est GFR (Non-Af Amer) 94.2 BUN/Creatinine Ratio 13.4 Glucose 175 H POC Glucose 178 H 172 H Calcium 8.5 L Magnesium Random Vancomycin 07/08/23 07/08/23 07/09/23 15:56 20:57 05:24 WBC RBC Hgb Hct MCV MCH MCHC RDW Std Deviation RDW Coeff of [place] Plt Count MPV Sodium 139 Potassium 3.7 Chloride 102 Carbon Dioxide 33 H Anion Gap 4 BUN 9 Creatinine 0.76 Est Cr Clr Drug Dosing 90.3 Est GFR ( Amer) 97.4 Est GFR (Non-Af Amer) 84.1 BUN/Creatinine Ratio 11.8 Glucose 190 H POC Glucose 133 H 150 H Calcium 8.6 Magnesium 1.9 Random Vancomycin 16.8 07/09/23 07/09/23 07/09/23 07:15 11:06 16:15 WBC RBC Hgb Hct MCV MCH MCHC RDW Std Deviation RDW Coeff of [place] Plt Count MPV Sodium Potassium Chloride Carbon Dioxide Anion Gap BUN Creatinine Est Cr Clr Drug Dosing Est GFR ( Amer) Est GFR (Non-Af Amer) BUN/Creatinine Ratio Glucose POC Glucose 196 H 182 H 127 H Calcium Magnesium Random Vancomycin PG Care Time/CCT Total # of Minutes Spent Total Time Spent with Patient: Total time spent is greater than 50% in coordination of care (as documented) at patient's floor/unit and/or counseling patient: Coding Level of Care Code 32066 SUB INP/OBS CARE 3/50MIN Diagnoses Groin fluid collection R18.8 Bacteremia R78.81 S/P left inguinal hernia repair Z98.890; Z87.19 Pancreatitis K85.90 Abdominal pain R10.9 Hypertriglyceridemia E78.1 Poorly controlled type 2 diabetes mellitus E11.65 Neuropathy G62.9 JOYCE (generalized anxiety disorder) F41.1 Depression F32.9 Fibromyalgia M79.7 CAD (coronary artery disease) I25.10 GERD with esophagitis K21.00 Hypertension I10 IBS (irritable bowel syndrome) K58.9 Volume overload E87.70 Constipation due to opioid therapy K59.03; T40.2X5A
[2023-07-10 08:02] LABS: Hematocrit (blood only) 28.1 % (37.0-47.0); Hemoglobin 9.1 g/dl (12.0-16.0); Mean Corpuscular Hemoglobin 30.8 pg (25.0-34.0); Mean Corpuscular Hgb Conc 32.4 g/dL (32.0-36.0); Mean Corpuscular Volume 95.3 fL (80.0-100.0); Platelet Count 227 K/uL (130-400); RDW Coefficient of Variation 14.1 % (11.5-14.5); RDW Standard Deviation 48.7 fL (36.4-46.3); Red Blood Count 2.95 M/uL (4.20-5.40); White Blood Count 4.61 K/ul (4.8-10.8)
[2023-07-10 08:26] LABS: BUN Creatinine Ratio 10.5 (10-20); Calcium 8.7 mg/dl (8.6-10.3); Creatinine Clr Calc Pharmacy 89.7 ml/min; Est GFR (African American) 97.4 ml/min; Est GFR (Non-African American) 84.1 ml/min
[2023-07-10] MEDS: SENNA 8.6 MG TAB PO SCH (08:26)
[2023-07-10] MEDS: POLYETHYLENE (MIRALAX) 17 GM PACK PO SCH (08:26)
[2023-07-10] MEDS: FUROSEMIDE INJ 20 MG/2 ML VIAL IV SCH (08:36)
[2023-07-10] MEDS: HYDROmorphone INJ 0.5 MG/0.5 ML SYR IV PRN (17:11)
--- NOTE | 2023-07-10 18:51 | Hospitalist Progress Note ---
Date of Service July 10, 2023 Assessment & Plan (1) Groin fluid collection: Plan: as seen on CT a/p and ultrasound; latter showed the collection is complex in appearance size - about 5cm the collection is in the left groin near previous inguinal hernia repair operative site had the inguinal hernia surgery in 03/[address] Red s/p IR aspiration with purulent/bloody obtained last week culture remains negative blood cx's all positive with coag neg staph 1 bottle with bacillus species -- felt to be contaminant repeat blood cultures from 07/04 neg repeat blood cultures from 07/05 neg cytologies neg for malignancy from the fluid collection Appreciate Dr Red's assistance He feels the likely source of her bacteremia is this fluid collection Plans to take out the mesh in about 2 weeks as outpatient baseline crp noted - 15 recheck later this week if she fails to improve from an infectious standpoint would she need the mesh removed sooner?? ID consult 07/09 -- recommendations: 5-7d IV antibiotics (tomorrow is day 7), continue cefazolin po cefadroxil 1000 mg bid through 48h past mesh removal (2) Bacteremia: Plan: 06/27 blood cx's positive - coag neg staph 1 bottle with bacillus species as well -- felt to represent contamination follow up blood cultures negative echo w/o valvular vegetations MRI lumbar spine without signs of epidural abscess or diskitis no recent fevers see above (3) S/P left inguinal hernia repair: Plan: on CT a/p there is a fluid collection in the left groin dedicated u/s obtained with 5cm complex appearing fluid collection IR drainage performed - no growth from aspirate but was already on IV antibiotics Dr Red performed index surgery in March 2023 - appreciate his consult and recs plans to take out the mesh in 2-3 weeks as outpatient (4) Pancreatitis: Plan: elevated lipase and stranding near pancreatic head on CT at time of admission. thought 2nd to severe hypertriglyceridemia with initial trigs of 2068. Does not drink alcohol and has had cholecystectomy in the past. Had previous episode of acute pancreatitis thought related to medications (statin and HCTZ?). Father had pancreatic cancer. Brother from severe pancreatitis - issue with a "blocked duct." Sister had acute pancreatitis. initially was on insulin drip for high triglycerides; improved from 1999s-->1200-->800. Stopped insulin drip 4/6, started fenofibrate 06/30. Last trigs - TG 530. Had a repeat CT a/p later in stay - pancreas appeared normal; previous inflammation resolved. MRCP negative for CBD stone or pancreatic duct abnormalities. repeat LFTs and lipase wnl on 07/06/23. defer on repeat CT at this time - low suspicion for pancreatic pseudocyst formation. she is tolerating diabetic, low-fat diet w/o N/V/worsening of her abd pain (5) Abdominal pain: Plan: suspect abd pain is multifactorial - recent pancreatitis, L groin infected fluid collection (suspected), ?gastritis, ?IBS, and severe opiate-induced constipation, hyperalgesia -decreased IV hydromorphone to 0.5 mg IV q3h, plan to stop tomorrow, continue oral oxycodone cont carafate + PPI if any pain is from gastritis, etc did give 1 dose of 10mg bentyl today for additional pain relief (6) Hypertriglyceridemia: Plan: see above SEVERE at presentation (>2000) now on fenofibrate 145mg daily last trigs level - 530 (7) Poorly controlled type 2 diabetes mellitus: Plan: Uncontrolled severe hyperglycemia on presentation with BG>800 HbA1c 16% initially on insulin drip, then transitioned to glargine and novolog on 06/30/23. BSGs remain stable/acceptable at this time. appreciate diabetes education consult recs at discharge Ms Pimentel from diabetes education advises the following regimen - lantus 30 units daily humalog 5 units fixed with meals + correction factor of 25 for BSG greater than 150 (8) Neuropathy: Plan: cont gabapentin 800mg QID (9) JOYCE (generalized anxiety disorder): Plan: cont sertraline, etc (10) Depression: Plan: cont sertraline, etc (11) Fibromyalgia: Plan: cont gabapentin, other meds (12) CAD (coronary artery disease): Plan: Hx cardiac stent cont metoprolol succ losartan on hold due to low-normal BPs uncertain why she is not on aspirin or plavix at baseline - would advise, at minimum, 81mg daily of asa echo this admission wnl - normal LV function; normal LV wall motion; no valvular vegetations (13) GERD with esophagitis: Plan: cont PPI BID cont carafate QID in the event some of her upper abd pain has been from the esophagus and/or stomach itself (14) Hypertension: Plan: losartan on hold typically on metoprolol succ at HS 37.5mg BPs have been low or low-normal much of the stay thus, cont to hold met succ, changed to meto tartrate 12.5mg BID with improved BPs hopefully can resume her usual meto succ at d/c (15) IBS (irritable bowel syndrome): Plan: noted likely contributing to her ongoing abd pain trial of bentyl (16) Volume overload: Plan: weight is 10+ kg up from admission has JVD and significant edema in the legs she has been net neg 1+ liter each day since starting IV lasix a few days ago cont IV lasix 20mg daily offered to give her an additional dose this evening - declined cont metoprolol BMP am shoot for net neg 1 to 1.5 liters each day low albumin, copious IV fluid administration in the setting of pancreatitis, etc all to blame for the volume overload suspect she will need several days of PO lasix post-discharge (17) Constipation due to opioid therapy: Plan: mod-severe on abd x-rays most of colon with stool she had been assuming since she was passing liquid stool that she wasn't constipated discussed overflow stooling extensively with her s/p golytely - 3 large BMs by report with improved pain refusing to do any further prep willing to take dulcolax, miralax maintenance - advise senna 2 tabs daily + miralax 1 serving daily Plan DVT proph - lovenox daily PT consult requested and appreciated Admission and Anticipated Discharge Date Admission Date: June 27, 2023 Subjective still with severe generalized abdominal pain but eating and drinking well, having BMs, no longer constipated no nausea/emesis Physical Exam 2 Physical Exam: PHYSICAL EXAMINATION Last 24h vital signs reviewed, see documentation in flowsheet General: awake alert in bed, appears calm/comfortable HEENT: Normocephalic, atraumatic, pupils round and equal, sclerae anicteric, no conjunctival injection, moist mucus membranes Lungs: Normal respiratory effort. Clear to auscultation bilaterally. No RRW Heart: Regular rate and rhythm, no murmurs. No JVD Abdomen: Soft, tender to light palpation mid abdomen, nondistended. BT normal Extremities: Warm, dry, well-perfused. 1+ lower extremity edema. Neuro: awake and oriented x 4, face symmetric, moves 4 extremities well Psych: Calm. Normal affect and behavior Results & Data Results & Data Vital Signs (Past 12 Hours) Vital Signs Temp Pulse Resp BP Pulse Ox O2 Del Method O2 Flow Rate 07/10/23 15:00 36.9 C 65 16 110/65 95 Nasal Cannula 2 07/10/23 11:02 37.0 C 64 14 106/61 95 Nasal Cannula 2 07/10/23 07:23 36.7 C 66 16 123/76 91 Nasal Cannula 2 Laboratory Results 07/10/23 07:34 07/10/23 07:34 PG Care Time/CCT Total # of Minutes Spent Total Time Spent with Patient: Total time spent is greater than 50% in coordination of care (as documented) at patient's floor/unit and/or counseling patient: Coding Level of Care Code 06424 SUB INP/OBS CARE 2/35MIN Diagnoses Groin fluid collection R18.8 Bacteremia R78.81 S/P left inguinal hernia repair Z98.890; Z87.19 Pancreatitis K85.90 Abdominal pain R10.9 Hypertriglyceridemia E78.1 Poorly controlled type 2 diabetes mellitus E11.65 Neuropathy G62.9 JOYCE (generalized anxiety disorder) F41.1 Depression F32.9 Fibromyalgia M79.7 CAD (coronary artery disease) I25.10 GERD with esophagitis K21.00 Hypertension I10 IBS (irritable bowel syndrome) K58.9 Volume overload E87.70 Constipation due to opioid therapy K59.03; T40.2X5A
[2023-07-10] MEDS: HYDROmorphone INJ 0.5 MG/0.5 ML SYR IV ONE (22:25)
[2023-07-11 08:42] LABS: BUN Creatinine Ratio 11.1 (10-20); Calcium 9.1 mg/dl (8.6-10.3); Creatinine Clr Calc Pharmacy 75.7 ml/min; Est GFR (African American) 79.4 ml/min; Est GFR (Non-African American) 68.5 ml/min; Potassium 4.3 mmol/L (3.5-5.1)
[2023-07-11] MEDS: POTASSIUM CHLORIDE CRTAB 20 MEQ TABCR PO SCH (09:06)
[2023-07-11] MEDS: FUROSEMIDE INJ 20 MG/2 ML VIAL IV SCH (09:06)
[2023-07-11] MEDS ORDERED: KETOROLAC TROMETHAMINE 15 MG/ML VIAL IV PRN (12:43)
[2023-07-11] MEDS: ACETAMINOPHEN 1,000 MG/100 ML VIAL IV SCH (13:25)
[2023-07-11] MEDS: oxyCODONE HCL IR 5 MG TAB (IMMEDIATE RELEASE) PO PRN (14:57)
--- NOTE | 2023-07-11 17:52 | Hospitalist Progress Note ---
Date of Service July 11, 2023 Assessment & Plan (1) Groin fluid collection: Plan: Postoperative seroma or abscess present on admission as seen on CT a/p and ultrasound; latter showed the collection is complex in appearance size - about 5cm the collection is in the left groin near previous inguinal hernia repair operative site had the inguinal hernia surgery in 03/[address] Red s/p IR aspiration with purulent/bloody obtained last week culture remains negative blood cx's all positive with coag neg staph 1 bottle with bacillus species -- felt to be contaminant repeat blood cultures from 07/04 neg repeat blood cultures from 07/05 neg cytologies neg for malignancy from the fluid collection Appreciate Dr Red's assistance He feels the likely source of her bacteremia is this fluid collection Plans to take out the mesh in about 2 weeks as outpatient baseline crp noted - 15 ID consult 07/09 -- recommendations: 5-7d IV antibiotics (today is day 7), continue cefazolin while in hospital po cefadroxil 1000 mg bid through 48h past mesh removal 07/10 c/o more focal pain LLQ which she has not c/o prior to now, unclear significance of this. No fever/leukocytosis and will recheck CRP (2) Bacteremia: Plan: 06/27 blood cx's positive - coag neg staph 1 bottle with bacillus species as well -- felt to represent contamination follow up blood cultures negative echo w/o valvular vegetations MRI lumbar spine without signs of epidural abscess or diskitis no recent fevers see above (3) S/P left inguinal hernia repair: Plan: on CT a/p there is a fluid collection in the left groin dedicated u/s obtained with 5cm complex appearing fluid collection IR drainage performed - no growth from aspirate but was already on IV antibiotics Dr Red performed index surgery in March 2023 - appreciate his consult and recs plans to take out the mesh in 2-3 weeks as outpatient (4) Pancreatitis: Plan: elevated lipase and stranding near pancreatic head on CT at time of admission. thought 2nd to severe hypertriglyceridemia with initial trigs of 2068. Does not drink alcohol and has had cholecystectomy in the past. Had previous episode of acute pancreatitis thought related to medications (statin and HCTZ?). Father had pancreatic cancer. Brother from severe pancreatitis - issue with a "blocked duct." Sister had acute pancreatitis. initially was on insulin drip for high triglycerides; improved from 1999s-->1200-->800. Stopped insulin drip 06/29, started fenofibrate 06/30. Last trigs - TG 530. Had a repeat CT a/p later in stay - pancreas appeared normal; previous inflammation resolved. MRCP negative for CBD stone or pancreatic duct abnormalities. repeat LFTs and lipase wnl on 07/06/23. defer on repeat CT at this time - low suspicion for pancreatic pseudocyst formation. she is tolerating diabetic, low-fat diet w/o N/V/worsening of her abd pain (5) Abdominal pain: Plan: suspect abd pain is multifactorial - recent pancreatitis, L groin infected fluid collection (suspected), ?gastritis, ?IBS, and severe opiate-induced constipation, hyperalgesia Discussion yesterday and today about pain control, I explained phenomenon of hyperalgesia and narcotic bowel and that abdominal pain unlikely to improve until discontinuation of IV opioids especially. She has been on significant doses of IV opioids since admission 14 days ago, there is no ongoing indication for IV at this time, and there is good evidence they are worsening her symptoms and significantly prolonging her hospital stay. She is very unhappy about this plan. -decreased IV hydromorphone to 0.5 mg IV q3h 07/09, tolerated, stop IV today, continue oral oxycodone increase to q3h PRN then taper. Her chronic dosing is percocet 7.5 enough for 3x a day. -scheduled IV APAP x 3 doses since intolerant of po APAP -PRN toradol x 24h cont carafate + PPI if any pain is from gastritis - seems unlikely since generalized pain improved (6) Hypertriglyceridemia: Plan: see above SEVERE at presentation (>2000) now on fenofibrate 145mg daily last trigs level - 530 (7) Poorly controlled type 2 diabetes mellitus: Plan: Uncontrolled severe hyperglycemia on presentation with BG>800 HbA1c 16% initially on insulin drip, then transitioned to glargine and novolog on 06/30/23. BSGs remain stable/acceptable at this time. appreciate diabetes education consult recs at discharge Ms Pimentel from diabetes education advises the following regimen - lantus 30 units daily humalog 5 units fixed with meals + correction factor of 25 for BSG greater than 150 (8) Neuropathy: Plan: cont gabapentin 800mg QID (9) JOYCE (generalized anxiety disorder): Plan: cont sertraline, etc (10) Depression: Plan: cont sertraline, etc (11) Fibromyalgia: Plan: cont gabapentin, other meds (12) CAD (coronary artery disease): Plan: Hx cardiac stent cont metoprolol succ losartan on hold due to low-normal BPs uncertain why she is not on aspirin or plavix at baseline - would advise, at minimum, 81mg daily of asa echo this admission wnl - normal LV function; normal LV wall motion; no valvular vegetations (13) GERD with esophagitis: Plan: cont PPI BID cont carafate QID in the event some of her upper abd pain has been from the esophagus and/or stomach itself (14) Hypertension: Plan: losartan on hold typically on metoprolol succ at HS 37.5mg BPs have been low or low-normal much of the stay thus, cont to hold met succ, changed to meto tartrate 12.5mg BID with improved BPs hopefully can resume her usual meto succ at d/c (15) IBS (irritable bowel syndrome): Plan: noted likely contributing to her ongoing abd pain trial of bentyl (16) Volume overload: Plan: weight is 10+ kg up from admission had JVD and significant edema in the legs as well as some hypoxia - all improved cont IV lasix inc to 40mg daily. legs do feel better low albumin, copious IV fluid administration in the setting of pancreatitis, etc all to blame for the volume overload (17) Constipation due to opioid therapy: Plan: mod-severe on abd x-rays most of colon with stool she had been assuming since she was passing liquid stool that she wasn't constipated discussed overflow stooling extensively with her s/p golytely - 3 large BMs by report with improved pain refusing to do any further prep willing to take dulcolax, miralax maintenance - advise senna 2 tabs daily + miralax 1 serving daily Plan DVT proph - lovenox daily PT consult requested and appreciated Admission and Anticipated Discharge Date Admission Date: June 27, 2023 Subjective Says she is "not doing very well" and has stabbing LLQ at site of hernia repair. Previous to today had generalized abdominal pain Pain was 9/10 on 1.5 mg hydromorphone and remains 9/10 on 0.5 mg IV hydromorphone Has been eating and up to commode Physical Exam 2 Physical Exam: PHYSICAL EXAMINATION Last 24h vital signs reviewed, see documentation in flowsheet General: awake alert in bed, is irritable HEENT: Normocephalic, atraumatic, pupils round and equal, sclerae anicteric, no conjunctival injection, moist mucus membranes Lungs: Normal respiratory effort. Heart: def Abdomen: Soft, nondistended. Extremities: Warm, dry, well-perfused. mild lower extremity edema. Neuro: awake and oriented x 4, face symmetric, moves 4 extremities well Psych: irritable affect and behavior Results & Data Results & Data Vital Signs (Past 12 Hours) Vital Signs Temp Pulse Pulse Resp BP Pulse Ox O2 Del Method 07/11/23 15:00 36.8 C 69 20 132/74 98 Room Air 07/11/23 12:00 36.7 C 79 18 118/69 96 Room Air 07/11/23 09:00 69 07/11/23 09:00 Room Air 07/11/23 07:30 36.8 C 74 20 132/61 98 Room Air Laboratory Results 07/10/23 07:34 07/11/23 07:55 PG Care Time/CCT Total # of Minutes Spent Total Time Spent with Patient: Total time spent is greater than 50% in coordination of care (as documented) at patient's floor/unit and/or counseling patient: Coding Level of Care Code 38435 SUB INP/OBS CARE 2/35MIN Diagnoses Groin fluid collection R18.8 Bacteremia R78.81 S/P left inguinal hernia repair Z98.890; Z87.19 Pancreatitis K85.90 Abdominal pain R10.9 Hypertriglyceridemia E78.1 Poorly controlled type 2 diabetes mellitus E11.65 Neuropathy G62.9 JOYCE (generalized anxiety disorder) F41.1 Depression F32.9 Fibromyalgia M79.7 CAD (coronary artery disease) I25.10 GERD with esophagitis K21.00 Hypertension I10 IBS (irritable bowel syndrome) K58.9 Volume overload E87.70 Constipation due to opioid therapy K59.03; T40.2X5A
[2023-07-12 06:29] LABS: BUN Creatinine Ratio 15.3 (10-20); C Reactive Protein 2.48 mg/dl (0-0.5); Creatinine Clr Calc Pharmacy 78.8 ml/min; Est GFR (African American) 85.1 ml/min; Est GFR (Non-African American) 73.4 ml/min
[2023-07-12 06:32] LABS: Hematocrit (blood only) 28.5 % (37.0-47.0); Hemoglobin 9.3 g/dl (12.0-16.0); Mean Corpuscular Hemoglobin 30.3 pg (25.0-34.0); Mean Corpuscular Hgb Conc 32.6 g/dL (32.0-36.0); Mean Corpuscular Volume 92.8 fL (80.0-100.0); Mean Platelet Volume 10.1 fL (9.4-12.4); Platelet Count 284 K/uL (130-400); RDW Standard Deviation 46.5 fL (36.4-46.3); Red Blood Count 3.07 M/uL (4.20-5.40); White Blood Count 6.84 K/ul (4.8-10.8)
--- NOTE | 2023-07-12 17:28 | Hospitalist Progress Note ---
Date of Service July 12, 2023 Assessment & Plan (1) Groin fluid collection: Plan: Postoperative seroma or abscess present on admission as seen on CT a/p and ultrasound; latter showed the collection is complex in appearance size - about 5cm the collection is in the left groin near previous inguinal hernia repair operative site had the inguinal hernia surgery in 03/[address] Red s/p IR aspiration with purulent/bloody obtained last week culture remains negative blood cx's all positive with coag neg staph 1 bottle with bacillus species -- felt to be contaminant repeat blood cultures from 07/04 neg repeat blood cultures from 07/05 neg cytologies neg for malignancy from the fluid collection Appreciate Dr eRd's assistance He feels the likely source of her bacteremia is this fluid collection Plans to take out the mesh in about 2 weeks as outpatient baseline crp noted - 15 ID consult 07/09 -- recommendations: 5-7d IV antibiotics (today is day 8), continue cefazolin while in hospital po cefadroxil 1000 mg bid through 48h past mesh removal No fever/leukocytosis and CRP improved from 15 --> 2.5 (2) Bacteremia: Plan: 06/27 blood cx's positive - coag neg staph 1 bottle with bacillus species as well -- felt to represent contamination follow up blood cultures negative echo w/o valvular vegetations MRI lumbar spine without signs of epidural abscess or diskitis no recent fevers see above (3) S/P left inguinal hernia repair: Plan: on CT a/p there is a fluid collection in the left groin dedicated u/s obtained with 5cm complex appearing fluid collection IR drainage performed - no growth from aspirate but was already on IV antibiotics Dr Red performed index surgery in March 2023 - appreciate his consult and recs plans to take out the mesh in 2-3 weeks as outpatient (4) Pancreatitis: Plan: elevated lipase and stranding near pancreatic head on CT at time of admission. thought 2nd to severe hypertriglyceridemia with initial trigs of 2068. Does not drink alcohol and has had cholecystectomy in the past. Had previous episode of acute pancreatitis thought related to medications (statin and HCTZ?). Father had pancreatic cancer. Brother from severe pancreatitis - issue with a "blocked duct." Sister had acute pancreatitis. initially was on insulin drip for high triglycerides; improved from 1999s-->1200-->800. Stopped insulin drip 4/, started fenofibrate 06/30. Last trigs - TG 530. Had a repeat CT a/p later in stay - pancreas appeared normal; previous inflammation resolved. MRCP negative for CBD stone or pancreatic duct abnormalities. repeat LFTs and lipase wnl on 07/06/23. defer on repeat CT at this time - low suspicion for pancreatic pseudocyst formation. she is tolerating diabetic, low-fat diet (5) Abdominal pain: Plan: suspect abd pain is multifactorial - recent pancreatitis, L groin infected fluid collection (suspected), ?gastritis, ?IBS, and severe opiate-induced con stipation, hyperalgesia -off IV hydromorphone last 24h. cont oral oxycodone. will need to taper down to her usual oral opioid cont carafate + PPI if any pain is from gastritis - seems unlikely since generalized pain improved (6) Hypertriglyceridemia: Plan: see above SEVERE at presentation (>2000) now on fenofibrate 145mg daily last trigs level - 530 (7) Poorly controlled type 2 diabetes mellitus: Plan: Uncontrolled severe hyperglycemia on presentation with BG>800 HbA1c 16% initially on insulin drip, then transitioned to glargine and novolog on 06/30/23. BSGs remain well controlled 07/11 appreciate diabetes education consult recs at discharge Ms Pimentel from diabetes education advises the following regimen - lantus 30 units daily humalog 5 units fixed with meals + correction factor of 25 for BSG greater than 150 (8) Neuropathy: Plan: cont gabapentin 800mg QID (9) JOYCE (generalized anxiety disorder): Plan: cont sertraline, etc (10) Depression: Plan: cont sertraline, etc (11) Fibromyalgia: Plan: cont gabapentin, other meds (12) CAD (coronary artery disease): Plan: Hx cardiac stent cont metoprolol succ losartan on hold due to low-normal BPs uncertain why she is not on aspirin or plavix at baseline - would advise, at minimum, 81mg daily of asa echo this admission wnl - normal LV function; normal LV wall motion; no valvular vegetations (13) GERD with esophagitis: Plan: stop carafate and decrease PPI to daily (14) Hypertension: Plan: losartan on hold typically on metoprolol succ at HS 37.5mg BPs have been low or low-normal much of the stay thus, cont to hold met succ, changed to meto tartrate 12.5mg BID with improved BPs hopefully can resume her usual meto succ at d/c (15) IBS (irritable bowel syndrome): Plan: noted likely contributing to her ongoing abd pain (16) Volume overload: Plan: weight was 10+ kg up from admission. low albumin, copious IV fluid administration in the setting of pancreatitis, etc all to blame for the volume overload had JVD and significant edema in the legs as well as some hypoxia - all improved cont IV lasix inc to 40mg daily. legs do feel better. No longer hypoxic few days of oral lasix after discharge (17) Constipation due to opioid therapy: Plan: mod-severe on abd x-rays most of colon with stool she had been assuming since she was passing liquid stool that she wasn't constipated discussed overflow stooling extensively with her s/p golytely - 3 large BMs by report with improved pain refusing to do any further prep willing to take dulcolax, miralax maintenance - advise senna 2 tabs daily + miralax 1 serving daily Plan DVT proph - lovenox daily PT consult requested and appreciated Admission and Anticipated Discharge Date Admission Date: June 27, 2023 Subjective Doing better. Has been on oxycodone 24h and pain is same to improved. Having BMs. Still has 8/10 pain LLQ at hernia repair fluid collection site Breathing is fine and leg and abdominal edema improving. No longer on O2 Physical Exam Physical Exam: PHYSICAL EXAMINATION Last 24h vital signs reviewed, see documentation in flowsheet General: awake alert in bed, pleasant HEENT: Normocephalic, atraumatic, pupils round and equal, sclerae anicteric, no conjunctival injection, moist mucus membranes Lungs: Normal respiratory effort. CTAB Heart: reg no mrg Abdomen: Soft, nondistended. nontender except in LLQ over seroma. +BT Extremities: Warm, dry, well-perfused. 1+ lower extremity edema. Neuro: awake and oriented x 4, face symmetric, moves 4 extremities well Psych: normal affect and behavior Results & Data Results & Data Vital Signs (Past 12 Hours) Vital Signs Temp Pulse Pulse Resp BP Pulse Ox O2 Del Method 07/12/23 15:00 36.7 C 78 20 129/73 93 Nasal Cannula 07/12/23 14:00 69 07/12/23 12:00 36.6 C 82 18 118/60 95 Nasal Cannula 07/12/23 09:00 65 07/12/23 09:00 Room Air 07/12/23 08:00 36.9 C 74 20 128/68 93 Nasal Cannula PG Care Time/CCT Total # of Minutes Spent Total Time Spent with Patient: Total time spent is greater than 50% in coordination of care (as documented) at patient's floor/unit and/or counseling patient: Coding Level of Care Code 49682 SUB INP/OBS CARE 2/35MIN Diagnoses Groin fluid collection R18.8 Bacteremia R78.81 S/P left inguinal hernia repair Z98.890; Z87.19 Pancreatitis K85.90 Abdominal pain R10.9 Hypertriglyceridemia E78.1 Poorly controlled type 2 diabetes mellitus E11.65 Neuropathy G62.9 JOYCE (generalized anxiety disorder) F41.1 Depression F32.9 Fibromyalgia M79.7 CAD (coronary artery disease) I25.10 GERD with esophagitis K21.00 Hypertension I10 IBS (irritable bowel syndrome) K58.9 Volume overload E87.70 Constipation due to opioid therapy K59.03; T40.2X5A
[2023-07-13 06:42] LABS: BUN Creatinine Ratio 16.9 (10-20); Calcium 9.3 mg/dl (8.6-10.3); Creatinine Clr Calc Pharmacy 78.8 ml/min; Est GFR (African American) 87.6 ml/min; Est GFR (Non-African American) 75.6 ml/min; Potassium 3.9 mmol/L (3.5-5.1)
[2023-07-13] MEDS: oxyCODONE HCL IR 5 MG TAB (IMMEDIATE RELEASE) PO PRN (10:05)
--- NOTE | 2023-07-13 18:48 | Discharge Summary ---
Date of Service July 13, 2023 Admission HPI Per Admitting Provider Mercy is a 62F w/ PMH Of poorly controlled T2DM, pancreatitis, migraines, neuropathy, JOYCE, depression, fibromyalgia, CAD, GERD, HLD, HTN, and IBS who presents for evaluation of hyperglycemia of outpatient labs. Patient notes that for the lat 10 days her abdomen has been very painful and feels like its going to 'pop'. She localizes her discomfort to the epigastrium. She notes that today she went to her PCP because she has had increasing polyuria and polydipsia over the last 2 weeks. She notes that she wears a Dexcom (and has for the last year) and that she thought it may not be working, so she changed it, but her home Dexcom continued to read BSGs of 120-180s at home. Patient states that she uses 18-25u of short acting insulin before meals and 15 units of long acting twice daily. Over the last 2 days, patient notes she has had increasing nausea and emesis and has been using Zofran at home to control her symptoms. She has felt increasingly fatigued w/o lightheadedness or dizziness. She denies dysuria, but notes worsening diarrhea. She denies chest pain, dypnea, or LE edema. She notes that she is in need of back surgery and is in alot of pain, but is unable to proceed until her A1c is <8. Patient denies any recent changes in her diet or medications. She notes an anaphylactic reaction to IV contrast. Principal Diagnosis Acute pancreatitis due to hypertriglyceridemia, Coagulase negative staph bacteremia thought related to infected L groin hernia repair mesh Discharge Exam PHYSICAL EXAMINATION Last 24h vital signs reviewed, see documentation in flowsheet General: sitting up in bed, looks good HEENT: Normocephalic, atraumatic, pupils round and equal, sclerae anicteric, no conjunctival injection, moist mucus membranes Lungs: Normal respiratory effort. CTAB no rrw Heart: reg no mrg Abdomen: nondistended Extremities: Warm, dry, well-perfused. no lower extremity edema. Neuro: awake and oriented x 4, face symmetric, moves 4 extremities well Psych: normal affect and behavior Discharge Data Allergies Allergy/AdvReac Type Severity Reaction Status Date / Time Iodinated Contrast Media Allergy Severe STOP Verified 04/04/23 08:49 BREATHING bupropion [From Wellbutrin] Allergy Mild Hallucinati Verified 04/04/23 08:49 ng divalproex sodium Allergy Mild Vomiting Verified 04/04/23 08:49 [From Depakote] ketorolac [From Toradol] Allergy Mild can not Verified 04/04/23 08:49 void metronidazole Allergy Mild VOMITS Verified 04/04/23 08:49 nitrofurantoin Allergy Mild VOMITS Verified 04/04/23 08:49 pregabalin [From Lyrica] Allergy Mild Hallucinati Verified 04/04/23 08:49 ng strawberry Allergy Mild Hives Verified 04/04/23 08:49 tramadol Allergy Mild can not Verified 04/04/23 08:49 void ziprasidone [From Geodon] Allergy Mild Vomiting Verified 04/04/23 08:49 Consultations 06/27/23 20:53 ED Decision to Admit Stat 07/03/23 20:39 Consult Gastroenterology Routine 07/05/23 07:00 Consult General Surgery Routine 07/09/23 11:45 Consult Infectious Diseases Routine Ordered Studies 06/27/23 22:58 CT Abdomen and Pelvis [CT abd pelvis wo con] Stat 07/01/23 10:58 CT Abdomen and Pelvis [CT abd pelvis wo con] Stat 07/03/23 14:39 MR MRCP Stat 07/04/23 07:57 US abdomen limited Stat 07/04/23 13:30 IR punc asp abs/jesse/bulla/cys Stat 07/06/23 17:44 MRI Spine [MR lumbar spine wo con] Urgent Chest X-Ray 06/27/23 19:25 XR chest 1V not portable HISTORY: 62 years-old Female weakness COMPARISON: March 27, 2023 TECHNIQUE: AP view of the chest FINDINGS: Cardiomediastinal and hilar silhouettes are within normal limits. No pneumothorax, pleural effusion or airspace consolidation. Cervical spinal fusion hardware. Bones appear grossly intact. There are a few scattered pulmonary calcified granulomata. IMPRESSION: No acute process. ACT 112: Negative or not required by law. The above report was generated using voice recognition software. It may contain grammatical, syntax or spelling errors. Electronically signed by: Hayden Moody M.D. 06/28/2023 6:51 AM Abdomen/Pelvis CT 06/27/23 22:58 Exam(s): CT ABDOMEN + PELVIS Without Contrast EXAM: CT Abdomen and Pelvis Without Intravenous Contrast CLINICAL HISTORY: Reason for exam: Epigastric pain/hyperglycemia/hx pancreatitis. TECHNIQUE: Axial computed tomography images of the abdomen and pelvis without intravenous contrast. CTDI is 26.4 mGy and DLP is 1308.81 mGy-cm. Automated exposure control was utilized for the study. A dose lowering technique was utilized adhering to the principles of ALARA. COMPARISON: CT Abdomen Pelvis dated 03/24/2023 FINDINGS: Lung bases: Left lower lobe calcified granuloma. No consolidation. ABDOMEN: Liver: Hepatic steatosis. Gallbladder and bile ducts: Cholecystectomy as on the prior. No ductal dilation. Pancreas: Minimal stranding around the pancreatic head and in the right anterior pararenal space. New since the prior. No ductal dilation. Spleen: Unremarkable. No splenomegaly. Adrenals: Unremarkable. No mass. Kidneys and ureters: Unremarkable. No obstructing stones. No hydronephrosis. Stomach and bowel: Unremarkable. No obstruction. No mucosal thickening. PELVIS: Appendix: No findings to suggest acute appendicitis. Bladder: Unremarkable. No stones. Reproductive: Absent uterus. ABDOMEN and PELVIS: Intraperitoneal space: Unremarkable. No free air. No significant fluid collection. Bones/joints: No acute fracture. No dislocation. Degenerative changes of the spine. Soft tissues: Ventral/umbilical hernia repair, stable. New small hematoma/fluid collection in the left inguinal region. Vasculature: Unremarkable. No abdominal aortic aneurysm. Lymph nodes: Unremarkable. No enlarged lymph nodes. IMPRESSION: 1. Minimal stranding around the pancreatic head and in the right anterior pararenal space. New since the prior. May represent acute pancreatitis. 2. Cholecystectomy, stable. 3. New small hematoma/fluid collection in the left inguinal region. Correlate for postoperative changes versus other etiology. Electronically signed by: Mckinley Tejada M.D. 06/28/23 02:58 AM Abdomen/Pelvis CT 07/01/23 10:58 CT abd pelvis wo con CLINICAL HISTORY: pancreatitis, increasing severe abdominal pain TECHNIQUE: Helical axial images of the abdomen and pelvis were obtained. Automated dose lowering techniques and/or adjustment according to patient size were utilized for this exam. This exam was performed without intravenous contrast. CT DOSE: 1449.14 mGy.cm COMPARISON: Comparison is made to CT abdomen pelvis 06/27/2023 FINDINGS: Lower chest: Small bilateral pleural effusions are seen with underlying atelectasis. Liver: Unremarkable. No focal lesions are seen. Gallbladder and biliary tree: Patient is status post cholecystectomy. Physiologic prominence of the biliary ducts is noted. Pancreas: Unremarkable, no focal lesions. Spleen: Splenule is incidentally noted. Adrenals: Unremarkable. Kidneys and ureters: Unremarkable. Bladder: Unremarkable. Reproductive organs: Patient is status post hysterectomy. Bowel: The appendix is normal. Lymph nodes Retroperitoneal: Unremarkable. Pelvic: Unremarkable. Mesenteric: Unremarkable. Peritoneum: Minimal fat stranding is seen about the spleen. Vessels: Atherosclerotic calcifications are seen. Abdominal wall: Stable fluid collection in the left inguinal region and postsurgical changes of a midline hernia repair are seen. Bones: Degenerative changes in the visualized spine. IMPRESSION: 1. Previously noted peripancreatic stranding about the head is less evident on today's exam. No evidence of acute peripancreatic collections 2. Stable left inguinal collection. ACT 112: Negative or not required by law. Electronically signed by: Paco Hester M.D. 07/01/2023 12:24 PM Cholangiopancreatography MRI 07/03/23 14:39 MR MRCP CLINICAL HISTORY: pancreatitis, severe RUQ pain; CBD stone?? TECHNIQUE: Multiplanar multisequence MR images of the abdomen were obtained, as per MRCP protocol. . COMPARISON: Comparison is made to MRA abdomen pelvis 10/31/[address] abdomen pelvis 07/01/2023 FINDINGS: Lower chest: Small bilateral pleural effusions. Liver: Unremarkable. No focal lesions are seen. Gallbladder and biliary tree: No calcified gallstones. Normal caliber wall. No intra- or extrahepatic biliary ductal dilation. Pancreas: Unremarkable, no focal lesions. Spleen: Splenule is incidentally noted. Adrenals: Unremarkable. Kidneys and ureters: Unremarkable. Bowel: Unremarkable. Lymph nodes Retroperitoneal: Unremarkable. Mesenteric: Unremarkable. Peritoneum: Normal Vessels: Unremarkable. Abdominal wall: Old scarring in the midline abdomen, likely postsurgical. Body wall edema is noted. Bones: Unremarkable. IMPRESSION: 1. No acute abnormalities. No acute abnormality is seen, in particular no evidence of pancreatitis in this patient with history of recent pancreatitis. No evidence of acute peripancreatic collections. 2. Body wall edema is nonspecific and may be secondary to fluid overload. ACT 112: Negative or not required by law. Electronically signed by: Paco Hester M.D. 07/03/2023 5:39 PM Chest X-Ray 07/04/23 07:15 XR chest 2V PA/lateral HISTORY: 62 years-old Female fevers, chills; eval pneumonia acute shortness of breath with fever and chills COMPARISON: 06/27/2023 TECHNIQUE: PA and lateral views of the chest FINDINGS: Cardiac silhouette is normal in size. Pulmonary vascular congestion with interstitial coarsening. Small pleural effusions with mild bibasilar densities. No pneumothorax. Bones appear grossly intact. Cervical spinal fusion hardware. IMPRESSION: Mild pulmonary edema with small pleural effusions and mild bibasilar opacities suggestive of atelectasis. ACT 112: Negative or not required by law. The above report was generated using voice recognition software. It may contain grammatical, syntax or spelling errors. Electronically signed by: Hayden Moody M.D. 07/04/2023 10:19 AM Abdomen Ultrasound 07/04/23 07:57 ABDOMINAL ULTRASOUND, LEFT LOWER QUADRANT HISTORY: ?left groin abscess/seroma? (seen on CT a/p). COMPARISON: CT 07/01/2023 FINDINGS: Heterogeneity of the left inguinal tissue is redemonstrated at the site of incision. There is a complex hypoechoic linear widened than tall structure within the subcutaneous tissues measuring 4.9 x 4.6 x 1.7 cm, unchanged from the comparison CT. IMPRESSION: 4.9 cm complex subcutaneous incisional collection appears unchanged from the comparison CT. Differential considerations include a hematoma, abscess or complex seroma. ACT 112: Negative or not required by law. Electronically signed by: Hayden Moody M.D. 07/04/2023 10:23 AM Puncture Aspiration 07/04/23 13:30 Ultrasound-guided left groin fluid collection aspiration INDICATION: Bacteremia; complex loculated left groin fluid collection PROCEDURE: Procedure and risks were explained. Informed consent was obtained. A final timeout was completed. The left groin was prepped and draped in sterile fashion. 1% buffered lidocaine was utilized for skin anesthesia. Utilizing ultrasound guidance, a 20-gauge spinal needle was advanced into the complex loculated left groin fluid collection. Ultrasound images were obtained. Approximately 1 mL of bloody purulent appearing fluid was aspirated and sent to the lab. The needle was removed and Band-Aid applied. The patient tolerated the procedure well. IMPRESSION: Left groin fluid collection aspiration as above. Performed, dictated, and signed by Pollo Williamson PA-C; to be co-signed by Dr. Christopher Alejandro. Electronically signed by: Christopher Alejandro M.D. 07/04/2023 5:17 PM Lumbar Spine MRI 07/06/23 17:44 Exam(s): MRI L SPINE Without Contrast EXAM: MR Lumbar Spine Without Intravenous Contrast CLINICAL HISTORY: Reason for exam: staph bacteremia, severe back pain; ro abscess. TECHNIQUE: Magnetic resonance images of the lumbar spine without intravenous contrast in multiple planes. COMPARISON: Comparison made to prior CT scan of abdomen and pelvis from July 01, 2023. FINDINGS: Vertebrae: There are 5 lumbar type vertebral bodies with a mild generalized curve to the left and normal lumbar lordosis. There is normal vertebral body height and alignment. The bone marrow signal is heterogeneous with reactive endplate changes. No acute fracture. Spinal cord: The conus is normal size, shape and signal characteristics, terminating at L1-L2. Soft tissues: Advanced atrophy of the iliopsoas, paraspinous or spinous musculature. The aorta and IVC flow voids are intact. The visions kidneys are unremarkable. There is extensive subcutaneous edema over the lumbar and sacral spine. DISCS/SPINAL CANAL/NEURAL FORAMINA: L1-L2: There is mild disc degeneration with annular disc bulge asymmetric to the right causing mild subarticular recess stenosis, with disc extending to the neural foramina without evidence of impingement or significant stenosis. There is minimal facet arthropathy with mild synovitis. L2-L3: There is mild disc degeneration with annular disc bulge flattening the thecal sac, disc extending into the neural foramina without evidence of impingement or significant stenosis. There is mild facet arthropathy with mild synovitis. L3-L4: There is mild disc degeneration with annular disc bulge causing a mild subarticular recess stenosis, or disc extend to the neural foramina without evidence of impingement or significant stenosis. There is mild facet arthropathy with mild to moderate synovitis. L4-L5: Moderate disc degeneration with annular disc bulge asymmetric to the right causing a mild subarticular recess stenosis, with disc and osteophyte extend to the neural foramina causing a mild right stenosis without evidence of impingement. There is mild facet arthropathy with mild to moderate synovitis. L5-S1: Moderate degeneration with annular disc bulge flattening the ventral thecal sac, with disc and osteophyte extend to the neural foramina causing mild right and moderate left stenosis with mild impingement of the left L5 nerve root ganglion. There is mild facet arthropathy with mild synovitis. IMPRESSION: 1. Moderate disc degeneration at L4-5 and L5-S1 with mild disc degeneration at L1-2, L2-3 and L3-4 with annular disc bulging stenosis at L1-L2, L3-4 and L4-5 without evidence of neural impingement. 2. There is no spinal canal stenosis. 3. There is mild right L4-5, mild right and moderate left L5-S1 neural foraminal stenosis with impingement of the left L5 nerve root ganglion. 4. There is minimal to mild facet arthropathy with mild to moderate synovitis. 5. No evidence of fracture, infection, tumor or arachnoiditis. Electronically signed by: Janet Arellano MD 07/06/23 23:29 PM Abdomen X-Ray 07/07/23 08:09 XR abdomen min 2V HISTORY: 62 years-old Female severe upper abd pain, CT a/p neg acute upper abdominal pain COMPARISON: CT 07/01/2023 TECHNIQUE: 3 views of the abdomen FINDINGS: Cholecystectomy. Moderate colonic fecal retention. Distended debris-filled stomach. Small pleural effusions with mild bibasilar atelectasis. Nonobstructive bowel gas pattern. No urolith. No acute fracture. IMPRESSION: 1. Nonobstructive bowel gas pattern. 2. Moderate colonic fecal retention. 3. Cholecystectomy. 4. Small pleural effusions. ACT 112: Negative or not required by law. The above report was generated using voice recognition software. It may contain grammatical, syntax or spelling errors. Electronically signed by: Hayden Moody M.D. 07/07/2023 9:12 AM Hospital Course (1) Pancreatitis: 62 y/o woman with previous episode of pancreatitis thought to be medication related admitted with acute pancreatitis and triglycerides of >2000. She was also in diabetic hyperosmolar non-ketotic state with BG in 800s. elevated lipase and stranding near pancreatic head on CT at time of admission. thought 2nd to severe hypertriglyceridemia with initial trigs of 2068. Does not drink alcohol and has had cholecystectomy in the past. Had previous episode of acute pancreatitis thought related to medications (statin and HCTZ?). Father had pancreatic cancer. Brother from severe pancreatitis - issue with a "blocked duct." Sister had acute pancreatitis. Pancreatitis was treated with aggressive IVF, bowel rest, pain and nausea control initially was on insulin drip for high triglycerides; improved from 1999s-->1200-->800. Stopped insulin drip 06/29, started fenofibrate 06/30. Last trigs - TG 530. Had a repeat CT a/p later in stay for escalation of abdominal pain - pancreas appeared normal; previous inflammation resolved. MRCP negative for CBD stone or pancreatic duct abnormalities. repeat LFTs and lipase wnl on 07/06/23. she is tolerating diabetic, low-fat diet discharged on fenofibrate - please follow up in primary care and check triglycerides (2) Groin fluid collection: Postoperative seroma or abscess present on admission - at time of admission this fluid collection was seen on CT but was not symptomatic with anything more than mild soreness at incision site, afebrile and no leukocytosis. Had inguinal hernia repair with mesh in 03/[address] Red. Six days into admission developed fever. Blood cultures were positive for coagulase negative staph. Ultrasound of fluid collection - 5 cm, complex in appearance. Dr. Red and ID consulted. IR aspirated the fluid was purulent/bloody but culture was negative. cytologies neg for malignancy from the fluid collection. repeat blood cultures from 07/04 neg repeat blood cultures from 07/[address] Red's assistance He feels the likely source of her bacteremia is this fluid collection Plans to take out the mesh in about 2 weeks as outpatient ID consult 07/09 -- recommendations: 5-7d IV antibiotics - completed 7-8 days IV cefazolin while in hospital po cefadroxil 1000 mg bid through 48h past mesh removal - prescribed 3 week supply. Has follow up appt with Dr. Red No fever/leukocytosis recently and CRP improved from 15 --> 2.5 (3) Bacteremia: 06/27 blood cx's positive - coag neg staph 1 bottle with bacillus species as well -- felt to represent contamination follow up blood cultures negative echo w/o valvular vegetations MRI lumbar spine without signs of epidural abscess or diskitis no recent fevers see above (4) S/P left inguinal hernia repair: see above (5) Abdominal pain: Initially pancreatitis pain was nonsevere and only needing low/infrequent doses of morphine. Does have IBS and chronic opioids for pain at baseline. Hospital day three developed escalating abdominal pain, repeat CT showed resolution of pancreatitis and lipase had normalized. Suspected hyperalgesia/narcotic bowel and started decreasing IV opioids. Through the following week and above events with bacteremia she continued to be on high amount of IV opioids for generalized abdominal pain. She had severe opioid induced constipation that was resolved with bowel regimen. Despite resolution she continued to have severe generalized abdominal pain, though eating well and independent in room. IV opioids were rapidly tapered off from 07/10-07/11 and transitioned successfully to oral oxycodone with improvement in pain and functioning. She was diuresed for fluid overload / anasarca with IV lasix and this resolved by discharge. She is at risk for withdrawal syndrome so I prescribed tapering dose of oxycodone for 1 week after which she will resume her usual percocet 7.5 mg three doses a day. (6) Hypertriglyceridemia: see above SEVERE at presentation (>2000) now on fenofibrate 145mg daily last trigs level - 530 (7) Poorly controlled type 2 diabetes mellitus: Uncontrolled severe hyperglycemia on presentation with BG>800 HbA1c 16% initially on insulin drip, then transitioned to glargine and novolog on 06/30/23. BG was well controlled past 2 weeks religion department chair consulted at discharge Ms Pimentel from diabetes education advises the following regimen - lantus 30 units daily humalog 5 units fixed with meals + correction factor of 25 for BSG greater than 150 (8) Neuropathy: cont gabapentin 800mg QID (9) JOYCE (generalized anxiety disorder): cont sertraline, etc (10) Depression: cont sertraline, etc (11) Fibromyalgia: cont gabapentin, other meds (12) CAD (coronary artery disease): Hx cardiac stent cont metoprolol succ losartan on hold due to low-normal BPs echo this admission wnl - normal LV function; normal LV wall motion; no valvular vegetations she states she is no longer on ASA because it was stopped when she had her previous bout of pancreatitis - suspected to be drug induced -would reconsider re-trial of aspirin or plavix after her mesh removal complete d, to prevent progression of CAD (13) GERD with esophagitis: PPI bid (14) Hypertension: losartan on hold for low BPs this admission - follow up with PCP continue metoprolol (15) IBS (irritable bowel syndrome): noted likely contributing to her ongoing abd pain (16) Volume overload: weight was 10+ kg up from admission. low albumin, copious IV fluid administration in the setting of pancreatitis, etc all to blame for the volume overload had JVD and significant edema in the legs as well as some hypoxia - all resolved with IV lasix this admission (17) Constipation due to opioid therapy: treated, resolved maintenance - advise senna 2 tabs daily + miralax 1 serving daily Total Time Total Time Spent Total Time Spent (In Minutes): I personally spent: 60 minutes today on clinical care activities including: reviewing chart notes and vital signs reviewing labs reviewing studies examining and counseling the patient discharge prescriptions and instructions writing orders documentation Discharge Plan Discharge Items Patient Disposition: Home - Self-Care Reason For Visit: HYPERGLYCEMIA, HYPERTRIGLYCERIDEMIA Discharge Diagnosis: acute pancreatitis related to hypertriglyceridemia, coagulase negative staph bacteremia Activity: Resume your previous activity Non-emergency contact: Primary Care Provider and Surgeon Call non-emergency contact if: you have any medication questions, your symptoms worsen and you have a fever Follow-up/Referrals: Sully Davis CRNP [Nurse Practitioner] - 07/18/23 9:00 am (Dr. Tracy did not have any available appointments. ) Pollo Red DO [Surgeon] - 07/24/23 10:00 am () Sandra Rosales PA-C [Physician Cloth Tearer] - 07/31/23 1:30 pm Diet: Carb Consistent or DM2 Addtl Attending Provider Instructions: Pancreatitis related to hypertriglyceridemia -fenofibrate to control triglycerides -avoid alcohol and fatty foods -follow up with Dr. Tracy HOLD losartan until/unless restarted by Dr. Tracy. Your bp has been lower in the hospital Coagulase negative staph bloodstream infection likely related to infected hernia mesh -take antibiotics until the mesh is removed - I gave you 3 weeks worth to get started, might need to be extended with new prescription depending on timing of surgery -follow up with Dr. Red as scheduled Insulin per written scale Oxycodone - you will need to taper over a week then resume your usual percocet, because you had high doses in the hospital and I don't want you to get withdrawals: 10 mg tonight then starting tomorrow AM: 40 mg per 24h (10 mg q6h) for three days, then 20 mg per 24h (5 mg q6h or 10 mg twice a day) for three days, then resume your usual percocet Advise bowel regimen, at LEAST until you are no longer taking oxycodone senna 2 tabs daily miralax 17g daily dulcolax 5 mg daily as needed -these are all available over the counter Pending Studies at Discharge: No Stand-Alone Forms: My [facility] Data Minder, Pain - Opioid Pain Management, Smoking Cessation Medications and DC Order Prescriptions: New fenofibrate nanocrystallized 145 mg Tablet 145 mg PO QAM Qty: 30 0RF acetaminophen [Tylenol Extra Strength] 500 mg Tablet 500 - 1,000 mg PO Q8H PRN (Reason: pain) Qty: 0 0RF Rx Instructions: over the counter. do not take more than 3000 mg acetaminophen per 24 hours (including the acetaminophen in your percocet) polyethylene glycol 3350 [Miralax] 17 gram Powder In Packet 17 g PO DAILY Qty: 0 0RF Rx Instructions: over the counter, take until you are no longer taking oxycodone cefadroxil 1 gram tablet 1,000 mg PO BID Qty: 42 0RF oxycodone 5 mg Tablet See Rx Instructions .ROUTE .COMPLEX Qty: 40 0RF Rx Instructions: one week taper: 10 mg q6h through 07/15, 5 mg q6h through 07/18 then stop and resume usual percocet (DME) blood-glucose meter [OneTouch Ultra2 Meter] Misc See Rx Instructions .Route Qty: 1 0RF Rx Instructions: check blood sugar 3 times a day (DME) OneTouch Ultra Test Strip See Rx Instructions .Route Qty: 100 1RF Rx Instructions: check blood sugar 3 times a day (DME) lancets [OneTouch Delica Plus Lancet] 33 gauge misc See Rx Instructions .Route Qty: 100 1RF Rx Instructions: check blood sugar 3 times a day Continued gabapentin 800 mg tablet 800 mg PO QID Qty: 120 5RF metoprolol succinate 25 mg tablet extended release 24 hr 37.5 mg PO HS Qty: 45 5RF ondansetron 4 mg tablet,disintegrating 4 mg translingual Q8H PRN (Reason: Nausea) Qty: 60 2RF trazodone 100 mg tablet 100 mg PO HS Qty: 90 3RF (DME) Dexcom G7 Sensor Device See Rx Instructions .Route Qty: 3 3RF Rx Instructions: Use for Continuous Glucose Monitoring sertraline 50 mg tablet 150 mg PO HS 90 Days Qty: 270 3RF loperamide 2 mg capsule 2 mg PO BID PRN (Reason: Diarrhea) pantoprazole 40 mg tablet,delayed release (DR/EC) 40 mg PO BID Qty: 60 5RF docusate sodium 100 mg Capsule 100 mg PO BID Qty: 60 0RF Rx Instructions: OTC sennosides [Senokot] 8.6 mg Tablet 17.2 mg PO QAM Qty: 60 0RF Rx Instructions: OTC baclofen 10 mg tablet 10 mg PO TID PRN (Reason: Muscle Spasm) diclofenac sodium [Voltaren Arthritis Pain] 1 % gel 4 g EXT QID PRN (Reason: as directed) Rx Instructions: apply to lower back at site of pain. Please give tube from hospital insulin lispro [Humalog KwikPen Insulin] 100 unit/mL insulin pen 1 sliding scale dose SUBCUT TIDM Qty: 15 0RF Rx Instructions: New premeal scale - 5 units with meals + CF:25 for BG > 150 insulin glargine [Lantus Solostar U-100 Insulin] 100 unit/mL (3 mL) insulin pen 15 unit SUBCUT BID Qty: 15 0RF Rx Instructions: continue 15 units twice a day No Action oxycodone-acetaminophen 7.5-325 mg tablet 1 tab PO Q8H PRN (Reason: Pain) 30 Days Qty: 90 0RF losartan 25 mg tablet 25 mg PO QAM Qty: 90 3RF Discharge Orders: Discharge Order (Routine); Ordered 07/13/23 Ordered By: Jovanna Holloway Admission Data Admit Date/Time: 06/27/23 23:32 Attending Provider: Jovanna Holloway Admit Provider: Kushal Ferreira Primary Care Provider: Khoa Tracy Other Providers: Chapo Carias; Delbert Yancey; Pollo Red; Imelda Norwood; Italia Gregorio; Ever Fuentes; Odette Dietz; Kaila Cruz; Ansley Marques; Jovanna Wallace; Brit Shine Other Interventions: Discharge Summary Assessment (RN) Last Done: 07/13/23 13:55 Coding Level of Care Code 34031 INP/OBS DISCH >30 MIN Diagnoses Pancreatitis K85.90 Groin fluid collection R18.8 Bacteremia R78.81 S/P left inguinal hernia repair Z98.890; Z87.19 Abdominal pain R10.9 Hypertriglyceridemia E78.1 Poorly controlled type 2 diabetes mellitus E11.65 Neuropathy G62.9 JOYCE (generalized anxiety disorder) F41.1 Depression F32.9 Fibromyalgia M79.7 CAD (coronary artery disease) I25.10 GERD with esophagitis K21.00 Hypertension I10 IBS (irritable bowel syndrome) K58.9 Volume overload E87.70 Constipation due to opioid therapy K59.03; T40.2X5A
== END 2023-07-13 14:39 | disposition home or self-care (01) | DRG 420 ==
LOC: ED 19:14 → EDINP 23:32 → SUATTDRO 23:32 → 2S 06-28 01:17
DX: R78.81 Bacteremia; Z79.4 Long term (current) use of insulin; K58.9 Irritable bowel syndrome, unspecified; L76.34 Postprocedural seroma of skin and subcutaneous tissue following other procedure; Z91.041 Radiographic dye allergy status; Z79.899 Other long term (current) drug therapy; E11.22 Type 2 diabetes mellitus with diabetic chronic kidney disease; Z86.73 Personal history of transient ischemic attack (TIA), and cerebral infarction without residual deficits; K21.00 Gastro-esophageal reflux disease with esophagitis, without bleeding; Z87.891 Personal history of nicotine dependence; E11.40 Type 2 diabetes mellitus with diabetic neuropathy, unspecified; Z88.8 Allergy status to other drugs, medicaments and biological substances; Z95.5 Presence of coronary angioplasty implant and graft; F32.A Depression, unspecified; E78.1 Pure hyperglyceridemia; I25.10 Atherosclerotic heart disease of native coronary artery without angina pectoris; Z11.52 Encounter for screening for COVID-19; Z86.16 Personal history of COVID-19; K85.30 Drug induced acute pancreatitis without necrosis or infection; E78.5 Hyperlipidemia, unspecified; Z88.1 Allergy status to other antibiotic agents; E11.00 Type 2 diabetes mellitus with hyperosmolarity without nonketotic hyperglycemic-hyperosmolar coma (NKHHC); M79.7 Fibromyalgia; T50.2X5A Adverse effect of carbonic-anhydrase inhibitors, benzothiadiazides and other diuretics, initial encounter; T81.40XA Infection following a procedure, unspecified, initial encounter; F41.1 Generalized anxiety disorder

== ENCOUNTER 2023-07-21 20:18 | Inpatient (IN) ==
[2023-07-21 21:44] LABS: Basophils # (auto) 0.06 K/uL (0.00-0.20); Basophils % (auto) 1.3 %; Eosinophils # (auto) 0.34 K/uL (0.00-0.50); Eosinophils % (auto) 7.5 %; Hematocrit (blood only) 31.4 % (37.0-47.0); Hemoglobin 10.3 g/dl (12.0-16.0); Immature Granulocytes # (auto) 0.01 K/uL (0.01-0.20); Immature Granulocytes % (auto) 0.2 %; Lymphocytes % (auto) 33.2 %; Mean Corpuscular Hemoglobin 30.9 pg (25.0-34.0); Mean Corpuscular Hgb Conc 32.8 g/dL (32.0-36.0); Mean Corpuscular Volume 94.3 fL (80.0-100.0); Mean Platelet Volume 9.6 fL (9.4-12.4); Monocytes # (auto) 0.51 K/uL (0.11-0.59); Monocytes % (auto) 11.3 %; Neutrophils % (auto) 46.5 %; Platelet Count 321 K/uL (130-400); RDW Coefficient of Variation 13.4 % (11.5-14.5); RDW Standard Deviation 45.9 fL (36.4-46.3); Red Blood Count 3.33 M/uL (4.20-5.40); White Blood Count 4.52 K/ul (4.8-10.8)
[2023-07-21 21:46] LABS: Base Excess VBG 5.5 mEq/L; HCO3 VBG 32 mmol/L; Oxygen Saturation VBG 61.2 %; PCO2 VBG 52 mmHg (38-50); PO2 VBG 33 mmHg; pH VBG 7.39 (7.36-7.41)
[2023-07-21] MEDS: ONDANSETRON INJ 2 MG/ML 2 ML VIAL IV STA (21:49)
[2023-07-21 22:00] LABS: Albumin Level 3.9 gm/dl (3.4-5.0); BUN Creatinine Ratio 20.2 (10-20); Bilirubin,Total 0.3 mg/dl (0.2-1.0); Calcium 8.7 mg/dl (8.6-10.3); Creatinine Clr Calc Pharmacy 73.3 ml/min; Est GFR (African American) 80.5 ml/min; Est GFR (Non-African American) 69.5 ml/min; Potassium 3.6 mmol/L (3.5-5.1); Total Protein 6.3 gm/dl (6.0-8.3)
[2023-07-21] MEDS: HYDROmorphone INJ 0.5 MG/0.5 ML SYR IV STA ×2 (22:00→23:50)
--- NOTE | 2023-07-21 22:04 | Emergency Department Note ---
Impression & Plan Abdominal pain, Ambulatory dysfunction ED Provider Note NAME: BAKARI NGO AGE: 62 SEX: F : 1960 ARRIVES VIA: Walk-In INFORMANT: Patient, ED PROVIDER(S): Luz Marina Ren MD CHIEF COMPLAINT: Abdominal/thigh pain HPI: This is a 62-year-old female history of constipation, bacteremia, HHS, pancreatitis presenting for abdominal pain rating into the left leg/thigh. Patient has had over the past 3 days she has had worsening sharp stabbing abdominal pain going from her mid epigastrium down to the belly and into her left leg/thigh. She has is difficult to walk at this time. She otherwise is currently tearful. She has no chest pain, shortness of breath, fever or chills. She is checking her sugars and they are 100s today. She was recently in the hospital for HHS and discharged about 7 days ago. ROS: See above HPI for pertinent positives & negatives. A total of 10 systems reviewed and were otherwise negative. PHYSICAL EXAMINATION: General: resting comfortably in no acute distress Head: Normocephalic and atraumatic Eyes: Normal inspection, extraocular muscles intact Ear, nose, throat: Normal external exam Neck: Normal range of motion Respiratory: lungs clear to auscultation bilaterally Cardiovascular: Regular rate/rhythm, no murmur GI: Diffusely tender with voluntary guarding Extremities: nontender, moves all extremities, 2+ pulses in lower extremities, well-perfused Neuro: The patient awake and alert, appropriately conversive, no focal deficits, symmetric faces Skin: Warm, dry, and intact MEDICAL DECISION MAKING: This is a 62-year-old female sent for abdominal pain rating to the left leg/thigh. Patient's pain is anterior abdomen with significantly tender abdomen involuntary guarding. -Will do pain control exam she does request this will get her to CAT scan as well due to pain however she is allergic to contrast with her noncontrasted CT at this time -While low concern, will do DVT study to rule out otherwise she has well- perfused legs with 2+ pulses in her DP/PT. -DVT study negative for acute DVT -Blood work is reviewed showing stable WBC and anemia as well as electrolytes. No lactic acid elevation. No transaminitis or lipase elevation -Patient CT Abdo/pelvis does reveal possible postsurgical scarring or undetermined inflammatory/infective process. -Patient reassessed after 2 rounds of Dilaudid. Patient's pain is more controlled but she is still having significant pain to the point where she is unable to walk. -Will require admission for this pain as well as the CT findings. -Discussed case with Dr. Martel for admission. He request MRI of the abdomen/pelvis to further assess this postsurgical change. He will evaluate the patient at bedside for admission at this time. Differential diagnosis: SBO, mesenteric ischemia, intra-abdominal infection, postsurgical infection, DVT, arterial occlusion ER treatment provided: See below Diagnostics interpreted by me: ECG: None Cardiac Monitoring: An order was placed for continuous cardiac monitoring. The monitor shows a rate of 82 with sinus rhythm. Laboratory studies: As stated above and show below. Imaging studies: See below. Past Med/Surg History Medical History Coag negative Staphylococcus bacteremia Infected prosthetic mesh of abdominal wall Abdominal pain Hypertriglyceridemia Incarcerated left inguinal hernia Fever Chronic back pain History of chest pain Fibromyalgia History of pulmonary embolism roughly 15yrs ago--unknown cause--no blood thinners COVID-19 11/08/2022 @ [facility]--head cold symptoms, slight cough--no symptoms now IBS (irritable bowel syndrome) TIA (transient ischemic attack) "more than 15yrs ago"--unknown cause, no deficits--no neurologist Hypertension Hyperlipidemia GERD with esophagitis Diabetes IDDM Depression CAD (coronary artery disease) Surgical History S/P left inguinal hernia repair (03/26/23) Open Left Inguinal Hernia Repair with Mesh(Left) - Pollo Red, History of fusion of cervical spine normal ROM History of repair of right rotator cuff History of bladder suspension procedure History of laparoscopy lysis of adhesions removal History of esophagogastroduodenoscopy (EGD) History of colonoscopy History of tooth extraction all teeth removed Hx of cholecystectomy H/O tubal ligation H/O: hysterectomy bhupendra bso H/O hernia repair x2 S/P coronary artery stent placement 5yrs ago @ [facility] [place]--1 stent total H/O cardiac catheterization x1 roughly 5 yrs ago @ [facility]--1 stent placed--follows with Dr. Moy Family History Mother Respiratory arrest Coronary heart disease Hypertension Father Cancer Sister Diabetes Multiple sclerosis Other No family history of adverse response to anesthesia Social History Smoking Status: Former smoker packs per day: 1; Smoking End Date: 29 years ago; Second Hand Exposure: No; Do You Dip or Chew Tobacco: No; Hx Alcohol Use: No Hx Substance Use: No Preferred Language: [place] Communication Ability: Effective Visual Impairment: No Limitations Diving Instructor Required: No Beliefs That Will Affect Care: None Current Living Situation: Alone Other Information That Helps Us Care for You: No Feels Safe at Home: Yes Safety Concerns: Feels Safe At This Time Allergies Allergies Allergy/AdvReac Type Severity Reaction Status Date / Time Iodinated Contrast Media Allergy Severe STOP Verified 07/21/23 21:34 BREATHING strawberry Allergy Intermediate Hives Verified 07/21/23 21:34 ketorolac [From Toradol] AdvReac Severe can not Verified 07/21/23 21:34 void tramadol AdvReac Severe can not Verified 07/21/23 21:34 void bupropion [From Wellbutrin] AdvReac Intermediate Hallucinati Verified 07/21/23 21:34 ng divalproex sodium AdvReac Intermediate Vomiting Verified 07/21/23 21:34 [From Depakote] metronidazole AdvReac Intermediate VOMITS Verified 07/21/23 21:34 nitrofurantoin AdvReac Intermediate VOMITS Verified 07/21/23 21:34 pregabalin [From Lyrica] AdvReac Intermediate Hallucinati Verified 07/21/23 21:34 ng ziprasidone [From Geodon] AdvReac Intermediate Vomiting Verified 07/21/23 21:34 Home Meds Home Medications Medication Instructions Recorded Confirmed loperamide 2 mg capsule 2 mg PO BID PRN Diarrhea 12/04/22 07/21/23 diclofenac sodium 1 % topical gel 4 g EXT QID PRN as directed 06/27/23 07/21/23 (Voltaren Arthritis Pain) insulin glargine 100 unit/mL (3 10 unit subcut BID 07/16/23 07/21/23 mL) subcutaneous pen (Lantus Solostar U-100 Insulin) Previous Rx's Medication Instructions Recorded pantoprazole 40 mg tablet,delayed 40 mg PO BID #60 tabs 12/12/22 release gabapentin 800 mg tablet 800 mg PO QID #120 tabs 01/25/23 metoprolol succinate 25 mg 37.5 mg (1.5 x 25 mg) PO HS #45 01/25/23 tablet,extended release 24 hr tabs ondansetron 4 mg disintegrating 4 mg translingual Q8H PRN Nausea 01/25/23 tablet #60 tabs docusate sodium 100 mg capsule 100 mg PO BID #60 caps 03/28/23 sennosides 8.6 mg tablet (Senokot) 17.2 mg (2 x 8.6 mg) PO QAM #60 03/28/23 tabs sertraline 50 mg tablet 150 mg (3 x 50 mg) PO HS 90 days 03/29/23 #270 tabs trazodone 100 mg tablet 100 mg PO HS #90 tabs 04/12/23 blood-glucose sensor ([facility] G7 #3 ea 05/11/23 Sensor device) oxycodone-acetaminophen 7.5 mg-325 1 tab PO Q8H PRN Pain 30 days #90 06/25/23 mg tablet tabs blood sugar diagnostic (OneTouch #100 ea 07/13/23 Ultra Test strips) blood-glucose meter (OneTouch #1 ea 07/13/23 Ultra2 Meter) cefadroxil 1 gram tablet 1,000 mg PO BID hernia mesh 07/13/23 infection #42 tabs fenofibrate nanocrystallized 145 145 mg PO QAM #30 tabs 07/13/23 mg tablet insulin lispro 100 unit/mL 1 sliding scale dose subcut TIDM 07/13/23 subcutaneous pen (Humalog KwikPen #15 mL (U-100) Insulin) lancets 33 gauge (OneTouch Delica #100 ea 07/13/23 Plus Lancet) oxycodone 5 mg tablet See Rx Instructions .Route 07/13/23 .COMPLEX #40 tabs polyethylene glycol 3350 17 gram 17 g PO DAILY #0 ea 07/13/23 oral powder packet (Miralax) Results & Data (ED) Vital Signs Vital Signs - 24 hr 07/21/23 20:19 07/21/23 20:22 07/21/23 20:43 Temperature 36.5 C Temperature Source Temporal Artery Scan Pulse Rate 76 78 Pulse Rate [Apical] 79 Pulse Rhythm [Apical] Regular Pulse Strength [Apical] Normal Respiratory Rate 20 Respiratory Effort / Characteristics Non-Labored Spontaneous Respiratory Depth Normal Respiratory Pattern Regular Blood Pressure 160/72 H Blood Pressure [Right Arm] 176/90 H Blood Pressure Mean 101 Blood Pressure Mean [Right Arm] 118 Blood Pressure Position [Right Arm] Semi-fowlers Pulse Oximetry 98 98 Oxygen Delivery Method Room Air Room Air Sepsis Recent Fever Within 48 Hours No Sepsis New/Unexplained Change in Mental Status No Sepsis Action Taken by Nursing No Action Required 07/21/23 22:40 07/21/23 23:21 07/22/23 00:00 Temperature Temperature Source Pulse Rate 72 70 Pulse Rate [Apical] 77 Pulse Rhythm [Apical] Pulse Strength [Apical] Respiratory Rate 18 20 16 Respiratory Effort / Characteristics Non-Labored Spontaneous Respiratory Depth Normal Respiratory Pattern Blood Pressure 157/83 H 154/75 H Blood Pressure [Right Arm] 164/83 H Blood Pressure Mean 95 101 Blood Pressure Mean [Right Arm] 110 Blood Pressure Position [Right Arm] Pulse Oximetry 96 97 96 Oxygen Delivery Method Room Air Sepsis Recent Fever Within 48 Hours Sepsis New/Unexplained Change in Mental Status Sepsis Action Taken by Nursing 07/22/23 00:30 07/22/23 01:00 07/22/23 01:00 Temperature Temperature Source Pulse Rate 72 70 76 Pulse Rate [Apical] Pulse Rhythm [Apical] Pulse Strength [Apical] Respiratory Rate 14 16 Respiratory Effort / Characteristics Respiratory Depth Respiratory Pattern Blood Pressure 122/70 150/88 H Blood Pressure [Right Arm] Blood Pressure Mean 87 108 Blood Pressure Mean [Right Arm] Blood Pressure Position [Right Arm] Pulse Oximetry 93 97 Oxygen Delivery Method Sepsis Recent Fever Within 48 Hours Sepsis New/Unexplained Change in Mental Status Sepsis Action Taken by Nursing Laboratory Data 07/22/23 05:48 07/22/23 05:48 Lab Results 07/21/23 07/21/23 07/21/23 Range/Units 21:10 21:34 21:42 WBC 4.52 L (4.8-10.8) K/ul RBC 3.33 L (4.20-5.40) M/uL Hgb 10.3 L (12.0-16.0) g/dl Hct 31.4 L (37.0-47.0) % MCV 94.3 (80.0-100.0) fL MCH 30.9 (25.0-34.0) pg MCHC 32.8 (32.0-36.0) g/dL RDW Std Deviation 45.9 (36.4-46.3) fL RDW Coeff of [place] 13.4 (11.5-14.5) % Plt Count 321 (130-400) K/uL MPV 9.6 (9.4-12.4) fL Immature Gran % (Auto) 0.2 % Neut % (Auto) 46.5 % Lymph % (Auto) 33.2 % [place] % (Auto) 11.3 % Eos % (Auto) 7.5 % Baso % (Auto) 1.3 % Neut # (Auto) 2.10 (1.40-6.50) K/uL Lymph # (Auto) 1.50 (1.20-3.40) K/uL [place] # (Auto) 0.51 (0.11-0.59) K/uL Eos # (Auto) 0.34 (0.00-0.50) K/uL Baso # (Auto) 0.06 (0.00-0.20) K/uL Immature Gran # (Auto) 0.01 (0.01-0.20) K/uL VBG pH 7.39 (7.36-7.41) VBG pCO2 52 H (38-50) mmHg VBG pO2 33 mmHg VBG HCO3 32 mmol/L VBG O2 Saturation 61.2 % VBG Base Excess 5.5 mEq/L Sodium 139 (136-145) mmol/L Potassium 3.6 (3.5-5.1) mmol/L Chloride 103 (98-107) mmol/L Carbon Dioxide 29 (21-32) mmol/L Anion Gap 7 (3-11) BUN 18 (6-23) mg/dl Creatinine 0.89 (0.6-1.2) mg/dl Est Cr Clr Drug Dosing 73.3 ml/min Est GFR ( Amer) 80.5 ml/min Est GFR (Non-Af Amer) 69.5 ml/min BUN/Creatinine Ratio 20.2 H (10-20) Glucose 242 H (70-99(Fasting)) mg/dl POC Glucose 230 H (70-99) mg/dl Lactate 1.2 (0.4-2.0) mmol/L Calcium 8.7 (8.6-10.3) mg/dl Total Bilirubin 0.3 (0.2-1.0) mg/dl Direct Bilirubin 0.0 (0-0.2) mg/dl AST 12 L (13-39) U/L ALT 6 L (7-52) U/L Alkaline Phosphatase 54 (34-104) U/L Total Protein 6.3 (6.0-8.3) gm/dl Albumin 3.9 (3.4-5.0) gm/dl Lipase 24 (11-82) U/L Administered Medications Fenofibrate (Fenofibrate Nanocrystallized 145 Mg Tablet) 145 mg PO QAM [facility] Stop: 08/21/23 08:59 Last Admin: 07/22/23 08:00 Dose: 145 mg Documented By: ALTHEA Gabapentin (Gabapentin 800 Mg Tab) 800 mg PO QID [facility] Stop: 08/21/23 08:59 Last Admin: 07/22/23 08:00 Dose: 800 mg Documented By: ALTHEA Hydromorphone HCl (Hydromorphone Inj 0.5 Mg/0.5 Ml Syr) 0.5 mg IV Q3H PRN PRN Reason: Severe Pain (Scale 7, 8, 9,10) Stop: 08/05/23 03:09 Last Admin: 07/22/23 07:55 Dose: 0.5 mg Documented By: Admin: 07/22/23 03:34 Dose: 0.5 mg Documented By: NADIR Insulin Aspart (Insulin Aspart Per Unit Charge) 0 units SC ACHS [facility] Stop: 08/21/23 07:29 Last Admin: 07/22/23 08:37 Dose: 3 units Documented By: ALTHEA Co-signed By: TYRON Ondansetron HCl (Ondansetron Inj 2 Mg/Ml 2 Ml Vial) 4 mg IV Q6H PRN PRN Reason: Nausea Stop: 08/21/23 03:09 Last Admin: 07/22/23 07:56 Dose: 4 mg Documented By: ALTHEA Oxycodone HCl (Oxycodone Hcl Ir 5 Mg Tab (Immediate Release)) 5 mg PO Q4H PRN PRN Reason: Moderate Pain (Scale 4, 5, 6) Stop: 08/05/23 03:09 Last Admin: 07/22/23 10:18 Dose: 5 mg Documented By: Admin: 07/22/23 05:51 Dose: 5 mg Documented By: NADIR Pantoprazole Sodium (Pantoprazole 40 Mg Tab) 40 mg PO BID MOOSE Stop: 08/21/23 08:59 Last Admin: 07/22/23 08:00 Dose: 40 mg Documented By: ALTHEA Polyethylene Glycol (Polyethylene (Miralax) 17 Gm Pack) 17 gm PO DAILY MOOSE Stop: 08/21/23 08:59 Last Admin: 07/22/23 08:00 Dose: Not Given Documented By: ALTHEA Sennosides (Senna 8.6 Mg Tab) 17.2 mg PO QAM [facility]OOSE Stop: 08/21/23 08:59 Last Admin: 07/22/23 08:00 Dose: 17.2 mg Documented By: ALTHEA Discontinued Medications Hydromorphone HCl (Hydromorphone Inj 0.5 Mg/0.5 Ml Syr) 0.5 mg IV NOW STA Stop: 07/21/23 21:46 Last Admin: 07/21/23 22:00 Dose: 0.5 mg Documented By: TONYA Hydromorphone HCl (Hydromorphone Inj 0.5 Mg/0.5 Ml Syr) 0.5 mg IV NOW STA Stop: 07/21/23 23:37 Last Admin: 07/21/23 23:50 Dose: 0.5 mg Documented By: ORTIZ Hydromorphone HCl (Hydromorphone Inj 0.5 Mg/0.5 Ml Syr) 0.5 mg IV NOW STA Stop: 07/22/23 05:08 Last Admin: 07/22/23 05:21 Dose: 0.5 mg Documented By: NADIR Hydromorphone HCl (Hydromorphone Inj 0.5 Mg/0.5 Ml Syr) 0.5 mg IV NOW STA Stop: 07/22/23 09:51 Last Admin: 07/22/23 10:18 Dose: 0.5 mg Documented By: ALTHEA Vancomycin HCl 1,750 mg/ (Sodium Chloride) 535 mls @ 200 mls/hr IV NOW ONE Stop: 07/22/23 06:10 Last Infusion: 07/22/23 07:05 Dose: Infused Documented By: Admin: 07/22/23 03:42 Dose: 200 mls/hr Documented By: NADIR Ondansetron HCl (Ondansetron Inj 2 Mg/Ml 2 Ml Vial) 4 mg IV NOW STA Stop: 07/21/23 21:47 Last Admin: 07/21/23 21:49 Dose: 4 mg Documented By: TONYA Imaging Data Radiologist's Impression: Venous Doppler Study 07/21/23 21:18 Exam(s): US VENOUS LEFT LOWER EXTREMITY EXAM: US Duplex Left Lower Extremity Veins CLINICAL HISTORY: DVT. TECHNIQUE: Real-time duplex ultrasound scan of the left lower extremity veins integrating B-mode two-dimensional vascular structure, Doppler spectral analysis, color flow Doppler imaging and compression. COMPARISON: No relevant prior studies available. FINDINGS: Deep veins: Unremarkable. No DVT in the visualized common femoral, femoral, proximal deep femoral or popliteal veins. The veins demonstrate normal color flow, are normally compressible, with normal phasic flow and/or augmentation response. The interrogated calf veins are patent. Superficial veins: Unremarkable. No thrombus in the saphenofemoral junction. Soft tissues: Subcutaneous edema noted throughout the superficial soft tissues. No popliteal cyst. IMPRESSION: No evidence for deep vein thrombosis involving the left lower extremity. Electronically signed by: Pollo Capmbell MD 07/21/23 23:58 PM Abdomen MRI 07/22/23 00:46 Exam(s): MRI ABDOMEN Without Contrast EXAM: MR Abdomen Without Intravenous Contrast CLINICAL HISTORY: Reason for exam: infection w/ mesh. TECHNIQUE: Multiplanar magnetic resonance images of the abdomen without intravenous contrast. COMPARISON: MRI July 03, 2023. FINDINGS: Lung bases: Unremarkable. No mass. No consolidation. Liver: Unremarkable. Gallbladder and bile ducts: Cholecystectomy. No significant bile duct dilatation. No focal filling defect or focal stricture. Pancreas: Unremarkable. No ductal dilation. Spleen: Unremarkable. No splenomegaly. Adrenals: Unremarkable. No mass. Kidneys and ureters: Unremarkable. No hydronephrosis. Stomach and bowel: Unremarkable. No obstruction. Intraperitoneal space: Unremarkable. No significant fluid collection. Soft tissues: Unremarkable. No edema or abnormal fluid. Vasculature: Unremarkable. No abdominal aortic aneurysm. Lymph nodes: Unremarkable. No enlarged lymph nodes. IMPRESSION: No acute findings. Electronically signed by: Gamal Vila MD 07/22/23 04:53 AM Pelvis MRI 07/22/23 00:46 Exam(s): MRI PELVIS Without Contrast EXAM: MR Pelvis Without Intravenous Contrast CLINICAL HISTORY: Reason for exam: infection w/ mesh. TECHNIQUE: Multiplanar magnetic resonance images of the pelvis without intravenous contrast. COMPARISON: No relevant prior studies available. FINDINGS: Bowel: Unremarkable. No obstruction. No mucosal thickening. Bladder: Unremarkable. No stones. Ovaries: Unremarkable as visualized. No mass or complex cyst. Uterus/cervix: Hysterectomy. Bones/joints: Unremarkable. No acute fracture. No dislocation. Soft tissues: Possible postoperative changes in the left inguinal region. Irregularity and a trace amount of fluid in the subcutaneous fat in the region. No evidence of hernia. Vasculature: Unremarkable. No lower abdominal aortic aneurysm. Lymph nodes: Unremarkable. No enlarged lymph nodes. IMPRESSION: Soft tissue irregularity and trace amount of fluid in the left inguinal region. No other significant abnormalities. Electronically signed by: Gamal Vila MD 07/22/23 05:01 AM Discharge Plan Visit Data Chief Complaint: Groin Pain Stated Complaint: GROIN PAIN/TRAVELS DOWN LT THIGH ED Provider: Luz Marina Ren Discharge Problem: Abdominal pain, Ambulatory dysfunction Patient Disposition: Admitted As Inpatient Discharge Instructions Interventions: ED Discharge Assessment Last Done: 07/22/23 01:53
--- NOTE | 2023-07-21 23:18 | CT Scan Report ---
Exam(s): CT ABDOMEN + PELVIS Without Contrast EXAM: CT Abdomen and Pelvis Without Intravenous Contrast CLINICAL HISTORY: Reason for exam: pelvic pain, recent infection of mesh. TECHNIQUE: Axial computed tomography images of the abdomen and pelvis without intravenous contrast. CTDI is 26.84 mGy and DLP is 1330.61 mGy-cm. Automated exposure control was utilized for the study. A dose lowering technique was utilized adhering to the principles of ALARA. COMPARISON: 07/01/2023. FINDINGS: Lung bases: Small left lower lobe calcified granuloma measuring 5 mm. There is right lower lobe atelectasis. Heart: Unremarkable. No cardiomegaly. No significant pericardial effusion. Normal cardiac size with coronary artery calcifications. ABDOMEN: Liver: Unremarkable. Gallbladder and bile ducts: Status post cholecystectomy. No ductal dilation. Pancreas: Unremarkable. No ductal dilation. Spleen: 2.5 mm splenic granulomata. Otherwise normal spleen. Adrenals: Unremarkable. No mass. Kidneys and ureters: Unremarkable. No obstructing stones. No hydronephrosis. Stomach and bowel: Moderate to abundant fecal debris within the colon, more so to the descending portion. No obstruction. No mucosal thickening. PELVIS: Appendix: Normal appendix. Bladder: Unremarkable. No stones. Reproductive: Nonvisualized uterus suggestive of previous hysterectomy. ABDOMEN and PELVIS: Intraperitoneal space: Unremarkable. No free air. No significant fluid collection. Bones/joints: Multilevel degenerative disease of the spine with mild vacuum phenomenon from L4-S1. Normal alignment with no acute fracture. Mild degenerative disease of bilateral SI joints and hips. Soft tissues: Postoperative changes of ventral hernia repair at the level near the umbilicus with no fluid collection to suggest abscess. There is second area of superficial soft tissue stranding along the left anterior pelvis which may be associated with nonspecific postoperative scarring versus indeterminate inflammatory process. There is no evidence of fluid collection to suggest abscess. Vasculature: Mild discoid disease of aorta. Lymph nodes: Unremarkable. No enlarged lymph nodes. IMPRESSION: 1. Postoperative changes as described, indeterminate which may be indicative of postoperative scarring versus indeterminate inflammatory process, otherwise no distinct abscess seen. 2. Cannot exclude mild constipation. Otherwise no acute appendicitis or bowel obstruction. 3. Status post cholecystectomy with no acute process involving the abdominal viscera. Electronically signed by: Nataliia Ryan MD 07/21/23 23:17 PM
--- NOTE | 2023-07-21 23:58 | Ultrasound Report ---
Exam(s): US VENOUS LEFT LOWER EXTREMITY EXAM: US Duplex Left Lower Extremity Veins CLINICAL HISTORY: DVT. TECHNIQUE: Real-time duplex ultrasound scan of the left lower extremity veins integrating B-mode two-dimensional vascular structure, Doppler spectral analysis, color flow Doppler imaging and compression. COMPARISON: No relevant prior studies available. FINDINGS: Deep veins: Unremarkable. No DVT in the visualized common femoral, femoral, proximal deep femoral or popliteal veins. The veins demonstrate normal color flow, are normally compressible, with normal phasic flow and/or augmentation response. The interrogated calf veins are patent. Superficial veins: Unremarkable. No thrombus in the saphenofemoral junction. Soft tissues: Subcutaneous edema noted throughout the superficial soft tissues. No popliteal cyst. IMPRESSION: No evidence for deep vein thrombosis involving the left lower extremity. Electronically signed by: Pollo Campbell MD 07/21/23 23:58 PM
--- NOTE | 2023-07-22 01:03 | History & Physical Report ---
Date of Service July 22, 2023 Assessment & Plan (1) Infected prosthetic mesh of abdominal wall: (2) Coag negative Staphylococcus bacteremia: (3) S/P left inguinal hernia repair: (4) Poorly controlled type 2 diabetes mellitus: (5) JOYCE (generalized anxiety disorder): (6) Adjustment disorder with mixed anxiety and depressed mood: (7) Constipation due to opioid therapy: (8) Fibromyalgia: (9) History of pulmonary embolism: (10) CAD (coronary artery disease): (11) GERD with esophagitis: (12) Hypertension: Plan Infected prosthetic mesh of abdominal wall/status post left inguinal hernia repair/coag negative staph bacteremia- Has completed 2 out of 3 weeks of cefadroxil, which will be discontinued Vancomycin IV per pharmacokinetic monitoring Acetaminophen 650 mg by mouth every 4 hours as needed for mild pain or fever Oxycodone 5 mg by mouth every 4 hours as needed for moderate pain Dilaudid 0.5 mg IV every 3 hours as needed for severe pain Order MRI of pelvis to assess for possible spread of infection from mesh Consult general surgery Dr. Red Diabetes mellitus- Continue glargine 10 units subcu twice daily Placed on Accu-Cheks with NovoLog SSI CAD/hypertension- Continue metoprolol succinate 37.5 mg at bedtime JOYCE/mixed anxiety with depression- Continue trazodone, sertraline and gabapentin History of Present Illness Chief Complaint: The patient presents to the emergency department with complaint of worsening pain over the past 3 days, radiating from her left groin toward her upper left thigh area. Primary Care Provider: Khoa Tracy DO The patient is a 62-year-old female with a past medical history including acute pancreatitis, hypertriglyceridemia, HHS, poorly controlled diabetes mellitus type 2, chronic diarrhea, migraine, JOYCE, adjustment disorder with mixed anxiety and depressed mood, fibromyalgia, history of PE, diabetes mellitus, CAD, hyperlipidemia, hypertension and IBS. The patient's left groin pain caused admission from 03/25/2023-03/28/2023, with surgery for an incarcerated left inguinal hernia by Dr. Red at 03/26/2023. The patient reports that she has had intermittent pain since that time, and was next admitted to the hospital from 06/26-07/13/2023 for hyperglycemia, pancreatitis secondary to hypertriglyceridemia. She did have / blood cultures found positive for coag negative staph, was seen by infectious disease on 07/09, and was placed on cefadroxil 1000 mg p.o. twice daily for 3 weeks, with about 1 week of antibiotics left. She did have a IR drainage of the left groin fluid collection, there remained culture negative. She presented to the ED with worsening left groin pain over the past 3 days, and reports that she has a pending appoint with Dr. Red on 07/23 for consideration/planning of removal of infected abdominal wall mesh. From the ED she received Dilaudid 0.5 mg IV x 2, and Zofran 4 mg IV x 1 Allergies Allergy/AdvReac Type Severity Reaction Status Date / Time Iodinated Contrast Media Allergy Severe STOP Verified 07/21/23 21:34 BREATHING strawberry Allergy Intermediate Hives Verified 07/21/23 21:34 ketorolac [From Toradol] AdvReac Severe can not Verified 07/21/23 21:34 void tramadol AdvReac Severe can not Verified 07/21/23 21:34 void bupropion [From Wellbutrin] AdvReac Intermediate Hallucinati Verified 07/21/23 21:34 ng divalproex sodium AdvReac Intermediate Vomiting Verified 07/21/23 21:34 [From Depakote] metronidazole AdvReac Intermediate VOMITS Verified 07/21/23 21:34 nitrofurantoin AdvReac Intermediate VOMITS Verified 07/21/23 21:34 pregabalin [From Lyrica] AdvReac Intermediate Hallucinati Verified 07/21/23 2 1:34 ng ziprasidone [From Geodon] AdvReac Intermediate Vomiting Verified 07/21/23 21:34 Home Medications Medication Instructions Recorded Confirmed Type loperamide 2 mg capsule 2 mg PO BID PRN Diarrhea 12/04/22 07/21/23 History pantoprazole 40 mg tablet,delayed 40 mg PO BID #60 tabs 12/12/22 07/21/23 Rx release gabapentin 800 mg tablet 800 mg PO QID #120 tabs 01/25/23 07/21/23 Rx metoprolol succinate 25 mg 37.5 mg (1.5 x 25 mg) PO HS #45 01/25/23 07/21/23 Rx tablet,extended release 24 hr tabs ondansetron 4 mg disintegrating 4 mg translingual Q8H PRN Nausea 01/25/23 07/21/23 Rx tablet #60 tabs docusate sodium 100 mg capsule 100 mg PO BID #60 caps 03/28/23 07/21/23 Rx sennosides 8.6 mg tablet (Senokot) 17.2 mg (2 x 8.6 mg) PO QAM #60 03/28/23 07/21/23 Rx tabs sertraline 50 mg tablet 150 mg (3 x 50 mg) PO HS 90 days 03/29/23 07/21/23 Rx #270 tabs trazodone 100 mg tablet 100 mg PO HS #90 tabs 04/12/23 07/21/23 Rx blood-glucose sensor (Dexcom G7 #3 ea 05/11/23 07/16/23 Rx Sensor device) oxycodone-acetaminophen 7.5 mg-325 1 tab PO Q8H PRN Pain 30 days #90 06/25/23 07/21/23 Rx mg tablet tabs diclofenac sodium 1 % topical gel 4 g EXT QID PRN as directed 06/27/23 07/21/23 History (Voltaren Arthritis Pain) blood sugar diagnostic (OneTouch #100 ea 07/13/23 07/16/23 Rx Ultra Test strips) blood-glucose meter (OneTouch #1 ea 07/13/23 07/16/23 Rx Ultra2 Meter) cefadroxil 1 gram tablet 1,000 mg PO BID hernia mesh 07/13/23 07/21/23 Rx infection #42 tabs fenofibrate nanocrystallized 145 145 mg PO QAM #30 tabs 07/13/23 07/21/23 Rx mg tablet insulin lispro 100 unit/mL 1 sliding scale dose subcut TIDM 07/13/23 07/21/23 Rx subcutaneous pen (Humalog KwikPen #15 mL (U-100) Insulin) lancets 33 gauge (OneTouch Delica #100 ea 07/13/23 07/16/23 Rx Plus Lancet) oxycodone 5 mg tablet See Rx Instructions .Route 07/13/23 07/21/23 Rx .COMPLEX #40 tabs polyethylene glycol 3350 17 gram 17 g PO DAILY #0 ea 07/13/23 07/21/23 Rx oral powder packet (Miralax) insulin glargine 100 unit/mL (3 10 unit subcut BID 07/16/23 07/21/23 History mL) subcutaneous pen (Lantus Solostar U-100 Insulin) Past Med/Surg History Medical History (Updated 07/22/23 @ 03:22 by Chapo Carias MD) Coag negative Staphylococcus bacteremia Infected prosthetic mesh of abdominal wall Abdominal pain Hypertriglyceridemia Incarcerated left inguinal hernia Fever Chronic back pain History of chest pain Fibromyalgia History of pulmonary embolism roughly 15yrs ago--unknown cause--no blood thinners COVID-19 11/08/[address] [facility]--head cold symptoms, slight cough--no symptoms now IBS (irritable bowel syndrome) TIA (transient ischemic attack) "more than 15yrs ago"--unknown cause, no deficits--no neurologist Hypertension Hyperlipidemia GERD with esophagitis Diabetes IDDM Depression CAD (coronary artery disease) Surgical History S/P left inguinal hernia repair (03/26/23) Open Left Inguinal Hernia Repair with Mesh(Left) - Pollo Red DO History of fusion of cervical spine normal ROM History of repair of right rotator cuff History of bladder suspension procedure History of laparoscopy lysis of adhesions removal History of esophagogastroduodenoscopy (EGD) History of colonoscopy History of tooth extraction all teeth removed Hx of cholecystectomy H/O tubal ligation H/O: hysterectomy bhupendra bso H/O hernia repair x2 S/P coronary artery stent placement 5yrs ago @ [facility]--1 stent total H/O cardiac catheterization x1 roughly 5 yrs ago @ [facility]--1 stent placed--follows with Dr. oMy Family History Mother Respiratory arrest Coronary heart disease Hypertension Father Cancer Sister Diabetes Multiple sclerosis Other No family history of adverse response to anesthesia Social History Smoking Status: Former smoker packs per day: 1; Second Hand Exposure: No; Do You Dip or Chew Tobacco: No; Hx Alcohol Use: No Hx Substance Use: No Preferred Language: Frisian Communication Ability: Effective Visual Impairment: No Limitations Sewer Pipe Offbearer Required: No Beliefs That Will Affect Care: None Current Living Situation: Alone Feels Safe at Home: Yes Review of Systems Review of Systems: The patient denies chest pain, palpitations, shortness of breath, dyspnea on exertion, cough, lower extremity swelling, sore throat, fevers, chills, sweats, nausea, vomiting, blood in urine or stool, dysuria, urinary frequency or urgency, lightheadedness, dizziness, headache, memory loss, loss of consciousness, rash, abnormal bruising or bleeding, imbalance, focal or generalized weakness, numbness or tingling in arms, generalized arthralgias or myalgias, back or neck pain, or night sweats. The review of systems is otherwise negative other than for that already noted above, and at least 10 systems have been reviewed. Physical Exam Physical Exam: The patient is awake, alert and oriented 3, well developed and well nourished, normocephalic and atraumatic, lying in bed and in no acute distress. HEENT--PERRL, EOMI, mucous membranes and oropharynx dry. Neck--supple. No JVD. No bruits. Thyroid normal, trachea midline, no adenopathy. Heart--normal S1 and S2. No murmurs, rubs or gallops. Lungs--clear bilaterally, no respiratory distress, no accessory muscle use. Abdomen--normal bowel sounds and soft. Mild left lower quadrant pain, limited exam due to obesity. Nondistended Extremities--No edema Dermatologic--normal skin turgor, normal color, no abnormal lymph nodes, no rash. Neurologic--cranial nerves II through XII grossly intact. Rheumatologic--normal range of motion. Psychiatric--normal affect. Results & Data Results & Data Vital Signs (Past 12 Hours) Vital Signs Temp Pulse Pulse Resp BP BP Pulse Ox 07/22/23 00:00 70 16 154/75 H 96 07/21/23 23:21 72 20 157/83 H 97 07/21/23 22:40 77 18 164/83 H 96 07/21/23 20:43 79 20 176/90 H 98 07/21/23 20:22 36.5 C 78 160/72 H 98 07/21/23 20:19 76 O2 Del Method 07/22/23 00:00 07/21/23 23:21 07/21/23 22:40 Room Air 07/21/23 20:43 Room Air 07/21/23 20:22 Room Air 07/21/23 20:19 Laboratory Results Laboratory Results WBC 4.52 K/ul (4.8-10.8) L 07/21/23 21:10 RBC 3.33 M/uL (4.20-5.40) L 07/21/23 21:10 Hgb 10.3 g/dl (12.0-16.0) L 07/21/23 21:10 Hct 31.4 % (37.0-47.0) L 07/21/23 21:10 MCV 94.3 fL (80.0-100.0) 07/21/23 21:10 MCH 30.9 pg (25.0-34.0) 07/21/23 21:10 MCHC 32.8 g/dL (32.0-36.0) 07/21/23 21:10 RDW Std Deviation 45.9 fL (36.4-46.3) 07/21/23 21:10 RDW Coeff of [place] 13.4 % (11.5-14.5) 07/21/23 21:10 Plt Count 321 K/uL (130-400) 07/21/23 21:10 MPV 9.6 fL (9.4-12.4) 07/21/23 21:10 Immature Gran % (Auto) 0.2 % 07/21/23 21:10 Neut % (Auto) 46.5 % 07/21/23 21:10 Lymph % (Auto) 33.2 % 07/21/23 21:10 [place] % (Auto) 11.3 % 07/21/23 21:10 Eos % (Auto) 7.5 % 07/21/23 21:10 Baso % (Auto) 1.3 % 07/21/23 21:10 Neut # (Auto) 2.10 K/uL (1.40-6.50) 07/21/23 21:10 Lymph # (Auto) 1.50 K/uL (1.20-3.40) 07/21/23 21:10 [place] # (Auto) 0.51 K/uL (0.11-0.59) 07/21/23 21:10 Eos # (Auto) 0.34 K/uL (0.00-0.50) 07/21/23 21:10 Baso # (Auto) 0.06 K/uL (0.00-0.20) 07/21/23 21:10 Immature Gran # (Auto) 0.01 K/uL (0.01-0.20) 07/21/23 21:10 VBG pH 7.39 (7.36-7.41) 07/21/23 21:34 VBG pCO2 52 mmHg (38-50) H 07/21/23 21:34 VBG pO2 33 mmHg 07/21/23 21:34 VBG HCO3 32 mmol/L 07/21/23 21:34 VBG O2 Saturation 61.2 % 07/21/23 21:34 VBG Base Excess 5.5 mEq/L 07/21/23 21:34 Sodium 139 mmol/L (136-145) 07/21/23 21:10 Potassium 3.6 mmol/L (3.5-5.1) 07/21/23 21:10 Chloride 103 mmol/L (98-107) 07/21/23 21:10 Carbon Dioxide 29 mmol/L (21-32) 07/21/23 21:10 Anion Gap 7 (3-11) 07/21/23 21:10 BUN 18 mg/dl (6-23) 07/21/23 21:10 Creatinine 0.89 mg/dl (0.6-1.2) 07/21/23 21:10 Est Cr Clr Drug Dosing 73.3 ml/min 07/21/23 21:10 Est GFR ( Amer) 80.5 ml/min 07/21/23 21:10 Est GFR (Non-Af Amer) 69.5 ml/min 07/21/23 21:10 BUN/Creatinine Ratio 20.2 (10-20) H 07/21/23 21:10 Glucose 242 mg/dl (70-99(Fasting)) H 07/21/23 21:10 POC Glucose 230 mg/dl (70-99) H 07/21/23 21:42 Lactate 1.2 mmol/L (0.4-2.0) 07/21/23 21:34 Calcium 8.7 mg/dl (8.6-10.3) 07/21/23 21:10 Total Bilirubin 0.3 mg/dl (0.2-1.0) 07/21/23 21:10 Direct Bilirubin 0.0 mg/dl (0-0.2) 07/21/23 21:10 AST 12 U/L (13-39) L 07/21/23 21:10 ALT 6 U/L (7-52) L 07/21/23 21:10 Alkaline Phosphatase 54 U/L (34-104) 07/21/23 21:10 Total Protein 6.3 gm/dl (6.0-8.3) 07/21/23 21:10 Albumin 3.9 gm/dl (3.4-5.0) 07/21/23 21:10 Lipase 24 U/L (11-82) 07/21/23 21:10 Impressions Venous Doppler Study 07/21/23 21:18 Exam(s): US VENOUS LEFT LOWER EXTREMITY EXAM: US Duplex Left Lower Extremity Veins CLINICAL HISTORY: DVT. TECHNIQUE: Real-time duplex ultrasound scan of the left lower extremity veins integrating B-mode two-dimensional vascular structure, Doppler spectral analysis, color flow Doppler imaging and compression. COMPARISON: No relevant prior studies available. FINDINGS: Deep veins: Unremarkable. No DVT in the visualized common femoral, femoral, proximal deep femoral or popliteal veins. The veins demonstrate normal color flow, are normally compressible, with normal phasic flow and/or augmentation response. The interrogated calf veins are patent. Superficial veins: Unremarkable. No thrombus in the saphenofemoral junction. Soft tissues: Subcutaneous edema noted throughout the superficial soft tissues. No popliteal cyst. IMPRESSION: No evidence for deep vein thrombosis involving the left lower extremity. Electronically signed by: Pollo Campbell MD 07/21/23 23:58 PM Abdomen/Pelvis CT 07/21/23 21:20 Exam(s): CT ABDOMEN + PELVIS Without Contrast EXAM: CT Abdomen and Pelvis Without Intravenous Contrast CLINICAL HISTORY: Reason for exam: pelvic pain, recent infection of mesh. TECHNIQUE: Axial computed tomography images of the abdomen and pelvis without intravenous contrast. CTDI is 26.84 mGy and DLP is 1330.61 mGy-cm. Automated exposure control was utilized for the study. A dose lowering technique was utilized adhering to the principles of ALARA. COMPARISON: 07/01/2023. FINDINGS: Lung bases: Small left lower lobe calcified granuloma measuring 5 mm. There is right lower lobe atelectasis. Heart: Unremarkable. No cardiomegaly. No significant pericardial effusion. Normal cardiac size with coronary artery calcifications. ABDOMEN: Liver: Unremarkable. Gallbladder and bile ducts: Status post cholecystectomy. No ductal dilation. Pancreas: Unremarkable. No ductal dilation. Spleen: 2.5 mm splenic granulomata. Otherwise normal spleen. Adrenals: Unremarkable. No mass. Kidneys and ureters: Unremarkable. No obstructing stones. No hydronephrosis. Stomach and bowel: Moderate to abundant fecal debris within the colon, more so to the descending portion. No obstruction. No mucosal thickening. PELVIS: Appendix: Normal appendix. Bladder: Unremarkable. No stones. Reproductive: Nonvisualized uterus suggestive of previous hysterectomy. ABDOMEN and PELVIS: Intraperitoneal space: Unremarkable. No free air. No significant fluid collection. Bones/joints: Multilevel degenerative disease of the spine with mild vacuum phenomenon from L4-S1. Normal alignment with no acute fracture. Mild degenerative disease of bilateral SI joints and hips. Soft tissues: Postoperative changes of ventral hernia repair at the level near the umbilicus with no fluid collection to suggest abscess. There is second area of superficial soft tissue stranding along the left anterior pelvis which may be associated with nonspecific postoperative scarring versus indeterminate inflammatory process. There is no evidence of fluid collection to suggest abscess. Vasculature: Mild discoid disease of aorta. Lymph nodes: Unremarkable. No enlarged lymph nodes. IMPRESSION: 1. Postoperative changes as described, indeterminate which may be indicative of postoperative scarring versus indeterminate inflammatory process, otherwise no distinct abscess seen. 2. Cannot exclude mild constipation. Otherwise no acute appendicitis or bowel obstruction. 3. Status post cholecystectomy with no acute process involving the abdominal viscera. Electronically signed by: Nataliia Ryan MD 07/21/23 23:17 PM Code Status & VTE Plan Code Status Full code VTE Prophylaxis Plan VTE Prophylaxis will be ordered: Yes PG Care Time/CCT Total # of Minutes Spent Total Time Spent with Patient: Total time spent is greater than 50% in coordination of care (as documented) at patient's floor/unit and/or counseling patient: Coding Level of Care Code 16530 INT INP/OBS CARE 3MIN Diagnoses Infected prosthetic mesh of abdominal wall T85.79XA Coag negative Staphylococcus bacteremia R78.81; B95.7 S/P left inguinal hernia repair Z98.890; Z87.19 Poorly controlled type 2 diabetes mellitus E11.65 JOYCE (generalized anxiety disorder) F41.1 Adjustment disorder with mixed anxiety and depressed mood F43.23 Constipation due to opioid therapy K59.03; T40.2X5A Fibromyalgia M79.7 History of pulmonary embolism Z86.711 CAD (coronary artery disease) I25.10 GERD with esophagitis K21.00 Hypertension I10
[2023-07-22] MEDS ORDERED: CARBOHYDRATES FOR HYPOGLYCEMIA PO PRN (03:10)
[2023-07-22] MEDS ORDERED: VANCOMYCIN CONSULT ACTIVE PRN (03:10)
[2023-07-22] MEDS ORDERED: DICLOFENAC SOD 1% GEL 100 GM TUBE EXT PRN (03:10)
[2023-07-22] MEDS ORDERED: GLUCOSE 40% GEL 15 GM TUBE PO PRN (03:10)
[2023-07-22] MEDS ORDERED: DEXTROSE 50% 50 ML SYRINGE IV PRN (03:10)
[2023-07-22] MEDS ORDERED: ACETAMINOPHEN 325 MG TAB PO PRN (03:10)
[2023-07-22] MEDS ORDERED: GLUCAGON FOR INJ 1 MG VIAL SQ PRN (03:10)
[2023-07-22] MEDS ORDERED: oxyCODONE/APAP 7.5/325MG TAB PO PRN (03:10)
[2023-07-22] MEDS ORDERED: GLUCOSE 10 TAB/TUBE PO PRN (03:10)
[2023-07-22] MEDS: HYDROmorphone INJ 0.5 MG/0.5 ML SYR IV PRN (03:34)
[2023-07-22] MEDS: VANCOMYCIN HCL 1,750 MG in SODIUM CHLORIDE 0.9% 500 ML IV ONE (03:42)
--- NOTE | 2023-07-22 04:54 | Magnetic Resonance Report ---
Exam(s): MRI ABDOMEN Without Contrast EXAM: MR Abdomen Without Intravenous Contrast CLINICAL HISTORY: Reason for exam: infection w/ mesh. TECHNIQUE: Multiplanar magnetic resonance images of the abdomen without intravenous contrast. COMPARISON: MRI July 03, 2023. FINDINGS: Lung bases: Unremarkable. No mass. No consolidation. Liver: Unremarkable. Gallbladder and bile ducts: Cholecystectomy. No significant bile duct dilatation. No focal filling defect or focal stricture. Pancreas: Unremarkable. No ductal dilation. Spleen: Unremarkable. No splenomegaly. Adrenals: Unremarkable. No mass. Kidneys and ureters: Unremarkable. No hydronephrosis. Stomach and bowel: Unremarkable. No obstruction. Intraperitoneal space: Unremarkable. No significant fluid collection. Soft tissues: Unremarkable. No edema or abnormal fluid. Vasculature: Unremarkable. No abdominal aortic aneurysm. Lymph nodes: Unremarkable. No enlarged lymph nodes. IMPRESSION: No acute findings. Electronically signed by: Gamal Vila MD 07/22/23 04:53 AM
--- NOTE | 2023-07-22 05:02 | Magnetic Resonance Report ---
Exam(s): MRI PELVIS Without Contrast EXAM: MR Pelvis Without Intravenous Contrast CLINICAL HISTORY: Reason for exam: infection w/ mesh. TECHNIQUE: Multiplanar magnetic resonance images of the pelvis without intravenous contrast. COMPARISON: No relevant prior studies available. FINDINGS: Bowel: Unremarkable. No obstruction. No mucosal thickening. Bladder: Unremarkable. No stones. Ovaries: Unremarkable as visualized. No mass or complex cyst. Uterus/cervix: Hysterectomy. Bones/joints: Unremarkable. No acute fracture. No dislocation. Soft tissues: Possible postoperative changes in the left inguinal region. Irregularity and a trace amount of fluid in the subcutaneous fat in the region. No evidence of hernia. Vasculature: Unremarkable. No lower abdominal aortic aneurysm. Lymph nodes: Unremarkable. No enlarged lymph nodes. IMPRESSION: Soft tissue irregularity and trace amount of fluid in the left inguinal region. No other significant abnormalities. Electronically signed by: Gamal Vila MD 07/22/23 05:01 AM
[2023-07-22] MEDS: HYDROmorphone INJ 0.5 MG/0.5 ML SYR IV STA ×2 (05:21→10:18)
[2023-07-22] MEDS: oxyCODONE HCL IR 5 MG TAB (IMMEDIATE RELEASE) PO PRN ×2 (05:51→19:30)
[2023-07-22 06:33] LABS: Basophils # (auto) 0.04 K/uL (0.00-0.20); Basophils % (auto) 0.8 %; Eosinophils # (auto) 0.32 K/uL (0.00-0.50); Eosinophils % (auto) 6.8 %; Hematocrit (blood only) 29.9 % (37.0-47.0); Hemoglobin 9.8 g/dl (12.0-16.0); Immature Granulocytes # (auto) 0.01 K/uL (0.01-0.20); Immature Granulocytes % (auto) 0.2 %; Lymphocytes # (auto) 1.81 K/uL (1.20-3.40); Lymphocytes % (auto) 38.3 %; Mean Corpuscular Hemoglobin 30.9 pg (25.0-34.0); Mean Corpuscular Hgb Conc 32.8 g/dL (32.0-36.0); Mean Corpuscular Volume 94.3 fL (80.0-100.0); Mean Platelet Volume 9.7 fL (9.4-12.4); Monocytes # (auto) 0.48 K/uL (0.11-0.59); Monocytes % (auto) 10.1 %; Neutrophils # (auto) 2.07 K/uL (1.40-6.50); Neutrophils % (auto) 43.8 %; Platelet Count 292 K/uL (130-400); RDW Coefficient of Variation 13.5 % (11.5-14.5); RDW Standard Deviation 46.4 fL (36.4-46.3); Red Blood Count 3.17 M/uL (4.20-5.40); White Blood Count 4.73 K/ul (4.8-10.8)
[2023-07-22 06:49] LABS: Albumin Level 3.5 gm/dl (3.4-5.0); BUN Creatinine Ratio 22.1 (10-20); Calcium 8.3 mg/dl (8.6-10.3); Creatinine Clr Calc Pharmacy 81.5 ml/min; Est GFR (African American) 95.9 ml/min; Est GFR (Non-African American) 82.8 ml/min; Phosphorus 3.8 mg/dl (2.5-4.9); Potassium 3.9 mmol/L (3.5-5.1)
[2023-07-22] MEDS: ONDANSETRON INJ 2 MG/ML 2 ML VIAL IV PRN (07:56)
[2023-07-22] MEDS: SENNA 8.6 MG TAB PO SCH (08:00)
[2023-07-22] MEDS: GABAPENTIN 800 MG TAB PO SCH (08:00)
[2023-07-22] MEDS: FENOFIBRATE NANOCRYSTALLIZED 145 MG TABLET PO SCH (08:00)
[2023-07-22] MEDS: PANTOprazole 40 MG TAB PO SCH (08:00)
[2023-07-22] MEDS: POLYETHYLENE (MIRALAX) 17 GM PACK PO SCH (08:00)
[2023-07-22] MEDS: INSULIN ASPART PER UNIT CHARGE SC SCH (08:37)
--- NOTE | 2023-07-22 09:11 | Surgery Consultation ---
Date of Consultation July 22, 2023 Assessment & Plan (1) Groin fluid collection: (2) Abdominal pain: (3) S/P left inguinal hernia repair: Plan 62-year-old woman presents with increasing pain of the left groin. This could potentially be an infected mesh or a ilioinguinal nerve entrapment syndrome. She has no fever, white count is normal, CT and MRI demonstrate postoperative scarring versus inflammatory change. We will discuss this with Dr. Red's team tomorrow. We will continue to follow. No surgical recommendations at this time. History of Present Illness Reason for Consultation: Possible mesh infection left groin Requesting Physician: Gm Flowers MD Attending Physician: Gm Flowers MD History of Present Illness The patient is a 62-year-old female with a past medical history including acute pancreatitis, hypertriglyceridemia, HHS, poorly controlled diabetes mellitus type 2, chronic diarrhea, migraine, JOYCE, adjustment disorder with mixed anxiety and depressed mood, fibromyalgia, history of PE, diabetes mellitus, CAD, hy perlipidemia, hypertension and IBS. The patient's left groin pain caused admission from 03/25/2023-03/28/2023, with surgery for an incarcerated left inguinal hernia by Dr. Red at 03/26/2023. The patient reports that she has had intermittent pain since that time, and was next admitted to the hospital from 06/26-07/13/2023 for hyperglycemia, pancreatitis secondary to hypertriglyceridemia. She did have 06/27 blood cultures found positive for coag negative staph, was seen by infectious disease on 07/09, and was placed on cefadroxil 1000 mg p.o. twice daily for 3 weeks, with about 1 week of antibiot ics left. She did have a IR drainage of the left groin fluid collection, there remained culture negative. She represents to the hospital with increasing severe pain in the left groin radiating down the left leg. This pain appears to be in the distribution of the ileoinguinal nerve. Her pain is sharp and severe when it occurs. No fevers or chills. Allergies Allergy/AdvReac Type Severity Reaction Status Date / Time Iodinated Contrast Media Allergy Severe STOP Verified 07/21/23 21:34 BREATHING strawberry Allergy Intermediate Hives Verified 07/21/23 21:34 ketorolac [From Toradol] AdvReac Severe can not Verified 07/21/23 21:34 void tramadol AdvReac Severe can not Verified 07/21/23 21:34 void bupropion [From Wellbutrin] AdvReac Intermediate Hallucinati Verified 07/21/23 21:34 ng divalproex sodium AdvReac Intermediate Vomiting Verified 07/21/23 21:34 [From Depakote] metronidazole AdvReac Intermediate VOMITS Verified 07/21/23 21:34 nitrofurantoin AdvReac Intermediate VOMITS Verified 07/21/23 21:34 pregabalin [From Lyrica] AdvReac Intermediate Hallucinati Verified 07/21/23 21:34 ng ziprasidone [From Geodon] AdvReac Intermediate Vomiting Verified 07/21/23 21:34 Home Medications Medication Instructions Recorded Confirmed Type loperamide 2 mg capsule 2 mg PO BID PRN Diarrhea 12/04/22 07/21/23 History pantoprazole 40 mg tablet,delayed 40 mg PO BID #60 tabs 12/12/22 07/21/23 Rx release gabapentin 800 mg tablet 800 mg PO QID #120 tabs 01/25/23 07/21/23 Rx metoprolol succinate 25 mg 37.5 mg (1.5 x 25 mg) PO HS #45 01/25/23 07/21/23 Rx tablet,extended release 24 hr tabs ondansetron 4 mg disintegrating 4 mg translingual Q8H PRN Nausea 01/25/23 07/21/23 Rx tablet #60 tabs docusate sodium 100 mg capsule 100 mg PO BID #60 caps 03/28/23 07/21/23 Rx sennosides 8.6 mg tablet (Senokot) 17.2 mg (2 x 8.6 mg) PO QAM #60 03/28/23 07/21/23 Rx tabs sertraline 50 mg tablet 150 mg (3 x 50 mg) PO HS 90 days 03/29/23 07/21/23 Rx #270 tabs trazodone 100 mg tablet 100 mg PO HS #90 tabs 04/12/23 07/21/23 Rx blood-glucose sensor (Dexcom G7 #3 ea 05/11/23 07/16/23 Rx Sensor device) oxycodone-acetaminophen 7.5 mg-325 1 tab PO Q8H PRN Pain 30 days #90 06/25/23 0 07/21/23 Rx mg tablet tabs diclofenac sodium 1 % topical gel 4 g EXT QID PRN as directed 06/27/23 07/21/23 History (Voltaren Arthritis Pain) blood sugar diagnostic (OneTouch #100 ea 07/13/23 07/16/23 Rx Ultra Test strips) blood-glucose meter (OneTouch #1 ea 07/13/23 07/16/23 Rx Ultra2 Meter) cefadroxil 1 gram tablet 1,000 mg PO BID hernia mesh 07/13/23 07/21/23 Rx infection #42 tabs fenofibrate nanocrystallized 145 145 mg PO QAM #30 tabs 07/13/23 07/21/23 Rx mg tablet insulin lispro 100 unit/mL 1 sliding scale dose subcut TIDM 07/13/23 07/21/23 Rx subcutaneous pen (Humalog KwikPen #15 mL (U-100) Insulin) lancets 33 gauge (OneTouch Delica #100 ea 07/13/23 07/16/23 Rx Plus Lancet) oxycodone 5 mg tablet See Rx Instructions .Route 07/13/23 07/21/23 Rx .COMPLEX #40 tabs polyethylene glycol 3350 17 gram 17 g PO DAILY #0 ea 07/13/23 07/21/23 Rx oral powder packet (Miralax) insulin glargine 100 unit/mL (3 10 unit subcut BID 07/16/23 07/21/23 History mL) subcutaneous pen (Lantus Solostar U-100 Insulin) Patient History Medical History Coag negative Staphylococcus bacteremia Infected prosthetic mesh of abdominal wall Abdominal pain Hypertriglyceridemia Incarcerated left inguinal hernia Fever Chronic back pain History of chest pain Fibromyalgia History of pulmonary embolism roughly 15yrs ago--unknown cause--no blood thinners COVID-19 11/08/2022 @ [facility]--head cold symptoms, slight cough--no symptoms now IBS (irritable bowel syndrome) TIA (transient ischemic attack) "more than 15yrs ago"--unknown cause, no deficits--no neurologist Hypertension Hyperlipidemia GERD with esophagitis Diabetes IDDM Depression CAD (coronary artery disease) Surgical History S/P left inguinal hernia repair (03/26/23) Open Left Inguinal Hernia Repair with Mesh(Left) - Pollo Red, DO History of fusion of cervical spine normal ROM History of repair of right rotator cuff History of bladder suspension procedure History of laparoscopy lysis of adhesions removal History of esophagogastroduodenoscopy (EGD) History of colonoscopy History of tooth extraction all teeth removed Hx of cholecystectomy H/O tubal ligation H/O: hysterectomy bhupendra bso H/O hernia repair x2 S/P coronary artery stent placement 5yrs ago @ [facility] [place]--1 stent total H/O cardiac catheterization x1 roughly 5 yrs ago @ [facility]--1 stent placed--follows with Dr. Moy Family History Mother Respiratory arrest Coronary heart disease Hypertension Father Cancer Sister Diabetes Multiple sclerosis Other No family history of adverse response to anesthesia Social History Smoking Status: Former smoker packs per day: 1; Smoking End Date: 29 years ago; Second Hand Exposure: No; Do You Dip or Chew Tobacco: No; Hx Alcohol Use: No Hx Substance Use: No Preferred Language: Gabonese Communication Ability: Effective Visual Impairment: No Limitations Sonography Technologist Required: No Beliefs That Will Affect Care: None Current Living Situation: Alone Other Information That Helps Us Care for You: No Feels Safe at Home: Yes Safety Concerns: Feels Safe At This Time Review of Systems Review of Systems: All systems reviewed & are unremarkable except as noted in HPI & below Physical Exam Constitutional: WD/WN, vitals as above Eyes: PERRL, conjunctivae normal, anicteric sclerae Neck: trachea midline, no thyromegaly Respiratory: normal respiratory effort; no respiratory distress and no labored breathing Cardiovascular: Rate/Rhythm: regular rate and regular rhythm Gastrointestinal (Abdomen): Inspection/Auscultation: abdomen normal to inspection; abdomen not distended Percussion/Palpation: + abdomen tender ( significant tenderness on palpation of the left inguinal region) and abdomen soft; no guarding and abdomen not rigid Skin: no rashes, warm and dry Psychiatric: A+Ox3, euthymic affect Results & Data Vital Signs (Past 12 Hours) Vital Signs Temp Pulse Pulse Pulse Resp BP BP 07/22/23 07:15 36.7 C 64 18 153/84 H 07/22/23 03:35 36.6 C 75 18 162/86 H 07/22/23 01:53 67 18 158/89 H 07/22/23 01:00 76 16 150/88 H 07/22/23 01:00 70 07/22/23 00:30 72 14 122/70 07/22/23 00:00 70 16 154/75 H 07/21/23 23:21 72 20 157/83 H 07/21/23 22:40 77 18 164/83 H Pulse Ox O2 Del Method 07/22/23 07:15 97 Room Air 07/22/23 03:35 96 Room Air 07/22/23 01:53 97 Room Air 07/22/23 01:00 97 07/22/23 01:00 07/22/23 00:30 93 07/22/23 00:00 96 07/21/23 23:21 97 07/21/23 22:40 96 Room Air Laboratory Results 07/22/23 07/22/23 07/21/23 Range/Units 07:39 05:48 21:42 WBC 4.73 L (4.8-10.8) K/ul RBC 3.17 L (4.20-5.40) M/uL Hgb 9.8 L (12.0-16.0) g/dl Hct 29.9 L (37.0-47.0) % MCV 94.3 (80.0-100.0) fL MCH 30.9 (25.0-34.0) pg MCHC 32.8 (32.0-36.0) g/dL RDW Std Deviation 46.4 H (36.4-46.3) fL RDW Coeff of [place] 13.5 (11.5-14.5) % Plt Count 292 (130-400) K/uL MPV 9.7 (9.4-12.4) fL Immature Gran % (Auto) 0.2 % Neut % (Auto) 43.8 % Lymph % (Auto) 38.3 % [place] % (Auto) 10.1 % Eos % (Auto) 6.8 % Baso % (Auto) 0.8 % Neut # (Auto) 2.07 (1.40-6.50) K/uL Lymph # (Auto) 1.81 (1.20-3.40) K/uL [place] # (Auto) 0.48 (0.11-0.59) K/uL Eos # (Auto) 0.32 (0.00-0.50) K/uL Baso # (Auto) 0.04 (0.00-0.20) K/uL Immature Gran # (Auto) 0.01 (0.01-0.20) K/uL VBG pH (7.36-7.41) VBG pCO2 (38-50) mmHg VBG pO2 mmHg VBG HCO3 mmol/L VBG O2 Saturation % VBG Base Excess mEq/L Sodium 140 (136-145) mmol/L Potassium 3.9 (3.5-5.1) mmol/L Chloride 106 (98-107) mmol/L Carbon Dioxide 29 (21-32) mmol/L Anion Gap 5 (3-11) BUN 17 (6-23) mg/dl Creatinine 0.77 (0.6-1.2) mg/dl Est Cr Clr Drug Dosing 81.5 ml/min Est GFR ( Amer) 95.9 ml/min Est GFR (Non-Af Amer) 82.8 ml/min BUN/Creatinine Ratio 22.1 H (10-20) Glucose 164 H (70-99(Fasting)) mg/dl POC Glucose 152 H 230 H (70-99) mg/dl Estimat Average Glucose Pending Hemoglobin A1c Pending Lactate (0.4-2.0) mmol/L Calcium 8.3 L (8.6-10.3) mg/dl Phosphorus 3.8 (2.5-4.9) mg/dl Total Bilirubin (0.2-1.0) mg/dl Direct Bilirubin (0-0.2) mg/dl AST (13-39) U/L ALT (7-52) U/L Alkaline Phosphatase (34-104) U/L Total Protein (6.0-8.3) gm/dl Albumin 3.5 (3.4-5.0) gm/dl Lipase (11-82) U/L 07/21/23 07/21/23 Range/Units 21:34 21:10 WBC 4.52 L (4.8-10.8) K/ul RBC 3.33 L (4.20-5.40) M/uL Hgb 10.3 L (12.0-16.0) g/dl Hct 31.4 L (37.0-47.0) % MCV 94.3 (80.0-100.0) fL MCH 30.9 (25.0-34.0) pg MCHC 32.8 (32.0-36.0) g/dL RDW Std Deviation 45.9 (36.4-46.3) fL RDW Coeff of [place] 13.4 (11.5-14.5) % Plt Count 321 (130-400) K/uL MPV 9.6 (9.4-12.4) fL Immature Gran % (Auto) 0.2 % Neut % (Auto) 46.5 % Lymph % (Auto) 33.2 % [place] % (Auto) 11.3 % Eos % (Auto) 7.5 % Baso % (Auto) 1.3 % Neut # (Auto) 2.10 (1.40-6.50) K/uL Lymph # (Auto) 1.50 (1.20-3.40) K/uL [place] # (Auto) 0.51 (0.11-0.59) K/uL Eos # (Auto) 0.34 (0.00-0.50) K/uL Baso # (Auto) 0.06 (0.00-0.20) K/uL Immature Gran # (Auto) 0.01 (0.01-0.20) K/uL VBG pH 7.39 (7.36-7.41) VBG pCO2 52 H (38-50) mmHg VBG pO2 33 mmHg VBG HCO3 32 mmol/L VBG O2 Saturation 61.2 % VBG Base Excess 5.5 mEq/L Sodium 139 (136-145) mmol/L Potassium 3.6 (3.5-5.1) mmol/L Chloride 103 (98-107) mmol/L Carbon Dioxide 29 (21-32) mmol/L Anion Gap 7 (3-11) BUN 18 (6-23) mg/dl Creatinine 0.89 (0.6-1.2) mg/dl Est Cr Clr Drug Dosing 73.3 ml/min Est GFR ( Amer) 80.5 ml/min Est GFR (Non-Af Amer) 69.5 ml/min BUN/Creatinine Ratio 20.2 H (10-20) Glucose 242 H (70-99(Fasting)) mg/dl POC Glucose (70-99) mg/dl Estimat Average Glucose Hemoglobin A1c Lactate 1.2 (0.4-2.0) mmol/L Calcium 8.7 (8.6-10.3) mg/dl Phosphorus (2.5-4.9) mg/dl Total Bilirubin 0.3 (0.2-1.0) mg/dl Direct Bilirubin 0.0 (0-0.2) mg/dl AST 12 L (13-39) U/L ALT 6 L (7-52) U/L Alkaline Phosphatase 54 (34-104) U/L Total Protein 6.3 (6.0-8.3) gm/dl Albumin 3.9 (3.4-5.0) gm/dl Lipase 24 (11-82) U/L Diagnostic Findings Exam(s): CT ABDOMEN + PELVIS Without Contrast EXAM: CT Abdomen and Pelvis Without Intravenous Contrast CLINICAL HISTORY: Reason for exam: pelvic pain, recent infection of mesh. TECHNIQUE: Axial computed tomography images of the abdomen and pelvis without intravenous contrast. CTDI is 26.84 mGy and DLP is 1330.61 mGy-cm. Automated exposure control was utilized for the study. A dose lowering technique was utilized adhering to the principles of ALARA. COMPARISON: 07/01/2023. FINDINGS: Lung bases: Small left lower lobe calcified granuloma measuring 5 mm. There is right lower lobe atelectasis. Heart: Unremarkable. No cardiomegaly. No significant pericardial effusion. Normal cardiac size with coronary artery calcifications. ABDOMEN: Liver: Unremarkable. Gallbladder and bile ducts: Status post cholecystectomy. No ductal dilation. Pancreas: Unremarkable. No ductal dilation. Spleen: 2.5 mm splenic granulomata. Otherwise normal spleen. Adrenals: Unremarkable. No mass. Kidneys and ureters: Unremarkable. No obstructing stones. No hydronephrosis. Stomach and bowel: Moderate to abundant fecal debris within the colon, more so to the descending portion. No obstruction. No mucosal thickening. PELVIS: Appendix: Normal appendix. Bladder: Unremarkable. No stones. Reproductive: Nonvisualized uterus suggestive of previous hysterectomy. ABDOMEN and PELVIS: Intraperitoneal space: Unremarkable. No free air. No significant fluid collection. Bones/joints: Multilevel degenerative disease of the spine with mild vacuum phenomenon from L4-S1. Normal alignment with no acute fracture. Mild degenerative disease of bilateral SI joints and hips. Soft tissues: Postoperative changes of ventral hernia repair at the level near the umbilicus with no fluid collection to suggest abscess. There is second area of superficial soft tissue stranding along the left anterior pelvis which may be associated with nonspecific postoperative scarring versus indeterminate inflammatory process. There is no evidence of fluid collection to suggest abscess. Vasculature: Mild discoid disease of aorta. Lymph nodes: Unremarkable. No enlarged lymph nodes. IMPRESSION: 1. Postoperative changes as described, indeterminate which may be indicative of postoperative scarring versus indeterminate inflammatory process, otherwise no distinct abscess seen. 2. Cannot exclude mild constipation. Otherwise no acute appendicitis or bowel obstruction. 3. Status post cholecystectomy with no acute process involving the abdominal viscera. Exam(s): MRI PELVIS Without Contrast EXAM: MR Pelvis Without Intravenous Contrast CLINICAL HISTORY: Reason for exam: infection w/ mesh. TECHNIQUE: Multiplanar magnetic resonance images of the pelvis without intravenous contrast. COMPARISON: No relevant prior studies available. FINDINGS: Bowel: Unremarkable. No obstruction. No mucosal thickening. Bladder: Unremarkable. No stones. Ovaries: Unremarkable as visualized. No mass or complex cyst. Uterus/cervix: Hysterectomy. Bones/joints: Unremarkable. No acute fracture. No dislocation. Soft tissues: Possible postoperative changes in the left inguinal region. Irregularity and a trace amount of fluid in the subcutaneous fat in the region. No evidence of hernia. Vasculature: Unremarkable. No lower abdominal aortic aneurysm. Lymph nodes: Unremarkable. No enlarged lymph nodes. IMPRESSION: Soft tissue irregularity and trace amount of fluid in the left inguinal region. No other significant abnormalities.
--- NOTE | 2023-07-22 10:55 | Pharmacy Report ---
Pharmacy PK ABX Note - Date of Service July 22, 2023 - Assessment and Plan Assessment 62 year old F receiving Vancomycin for treatment of possible infected prosthetic mesh. * Day #1 of antimicrobial therapy. * Afebrile and without leukocytosis. Renal fxn slightly elevated from baseline but improving. * Patient was admitted earlier this month for bacteremia and did well on vancomycin 750 mg IV every 8 hours so will continue that dose. * Blood cultures pending. Plan Vancomycin * Loading dose: 1750 mg IV x 1 * Maintenance dose: 750 mg IV every 8 hours * Regimen is predicted to achieve target AUC/FUENTES of 400-600 mg/L.hr * Random level ordered for: 07/24/23 Pharmacy will continue to follow and will adjust dose/frequency as necessary. Thank you. Pharmacy has transitioned to AUC monitoring for vancomycin. AUC/FUENTES is the preferred PK/PD target and is associated with decreased risk of nephrotoxicity compared to traditional trough targets.
[2023-07-22] MEDS ORDERED: HYDROmorphone INJ 0.5 MG/0.5 ML SYR IV PRN (13:44)
--- NOTE | 2023-07-22 13:47 | Hospitalist Progress Note ---
Date of Service July 22, 2023 Assessment & Plan (1) Infected prosthetic mesh of abdominal wall: Plan: hospitalized 06/26 to 07/12 for acute pancreatitis 2nd to high triglycerides, complicated by coag neg staph bacteremia - source suspected to be a left groin abscess/infected mesh from her prior inguinal hernia repair in 03/2023. was treated with IV antibiotics while hospitalized, then sent home on PO cefadroxil 1gm BID. I rechecked her CRP today - 0. Highest CRP during prior hospital stay - 15.3. Now presenting back with severe LLQ/groin pain. Differential - localized nerve entrapment causing pain vs referred pain from lumbar radiculopathy (would be L2 on left) vs intrinsic L hip disease (doubt) vs other. Gen surg was consulted; Dr Red to see tomorrow. During this admission is it possibility for infected mesh to be removed? Cefadroxil was held at admission and vanco IV restarted. I obtained 2 sets of surveillance blood cx's today. Pain control - requiring 1mg doses of dilaudid but "only last about an hour." Will increase to 1.5mg IV q3h prn of dilaudid. Cont gabapentin QID (she had only been taking BID at home). naprosyn 500mg po x 1 now for anti-inflammatory effect. (2) Coag negative Staphylococcus bacteremia: Plan: see above. cont IV vanco. surveillance blood cx's x 2 sets obtained today. (3) S/P left inguinal hernia repair: Plan: 03/2023 - Dr Red see above (4) Poorly controlled type 2 diabetes mellitus: Plan: resume lantus 10 units BID adjust novolog as needed had been poorly controlled with most recent a1c 16.6% (5) JOYCE (generalized anxiety disorder): Plan: cont home meds (6) Adjustment disorder with mixed anxiety and depressed mood: Plan: cont home meds (7) Constipation due to opioid therapy: Plan: cont senna + miralax had SEVERE Constipation during prior stay requiring go-lytely (8) Fibromyalgia: Plan: cont home meds this is augmenting her pain from #1 (9) History of pulmonary embolism: Plan: noted add lovenox 40mg daily (10) CAD (coronary artery disease): Plan: Hx cardiac stent cont metoprolol succ echo previous admission wnl - normal LV function; normal LV wall motion; no valvular vegetations (11) GERD with esophagitis: Plan: cont PPI twice daily (12) Hypertension: Plan: cont metoprolol (13) Hypertriglyceridemia: Plan: cont fenofibrate 145mg daily Plan DVT proph - add lovenox Admission and Anticipated Discharge Date Admission Date: July 22, 2023 Subjective patient's main complaint is that of left groin pain the pain radiates down the medial anterior thigh to just above the knee no lateral thigh pain or posterior thigh pain feels "hot", throbbing, sharp, severe comes and goes, sometimes it is much worse than other times she was very tearful during the visit stating "I can't take this any longer" she is hoping to have the hernia mesh removed soon and "hopefully everything gets back to normal" denies any significant changes in her low back pain no recent troubles with her constipation Review of Systems Review of Systems: gen - no fevers or chills cv - no cp; recent edema of legs just about fully resolved pulm - no dyspnea GI - no nausea/vomiting Physical Exam Physical Exam: gen - tearful, c/o pain in left groin, but interspersed with times of looking comfortable mouth - MMM neck - no JVD heart - RRR, s1 s2, no murmur lungs - CTA b/l abd - soft ND BS+; tender over lowest portion of LLQ (near inguinal hernia scar); no peritoneal signs ext - left hip - pain with any flexion of left hip; she states the pain radiates inferiorly along the anterior medial thigh towards the knee skin - no redness over the left lower quadrant/groin psych - very tearful, depressed Results & Data Results & Data Vital Signs (Past 12 Hours) Vital Signs Temp Pulse Pulse Pulse Resp BP BP 07/22/23 07:15 36.7 C 64 18 153/84 H 07/22/23 03:35 36.6 C 75 18 162/86 H 07/22/23 01:53 67 18 158/89 H Pulse Ox O2 Del Method 07/22/23 07:15 97 Room Air 07/22/23 03:35 96 Room Air 07/22/23 01:53 97 Room Air Laboratory Results Laboratory Results - last 48 hr 07/21/23 07/21/23 07/21/23 21:10 21:34 21:42 WBC 4.52 L RBC 3.33 L Hgb 10.3 L Hct 31.4 L MCV 94.3 MCH 30.9 MCHC 32.8 RDW Std Deviation 45.9 RDW Coeff of [place] 13.4 Plt Count 321 MPV 9.6 Immature Gran % (Auto) 0.2 Neut % (Auto) 46.5 Lymph % (Auto) 33.2 [place] % (Auto) 11.3 Eos % (Auto) 7.5 Baso % (Auto) 1.3 Neut # (Auto) 2.10 Lymph # (Auto) 1.50 [place] # (Auto) 0.51 Eos # (Auto) 0.34 Baso # (Auto) 0.06 Immature Gran # (Auto) 0.01 VBG pH 7.39 VBG pCO2 52 H VBG pO2 33 VBG HCO3 32 VBG O2 Saturation 61.2 VBG Base Excess 5.5 Sodium 139 Potassium 3.6 Chloride 103 Carbon Dioxide 29 Anion Gap 7 BUN 18 Creatinine 0.89 Est Cr Clr Drug Dosing 73.3 Est GFR ( Amer) 80.5 Est GFR (Non-Af Amer) 69.5 BUN/Creatinine Ratio 20.2 H Glucose 242 H POC Glucose 230 H Estimat Average Glucose Hemoglobin A1c Lactate 1.2 Calcium 8.7 Phosphorus Total Bilirubin 0.3 Direct Bilirubin 0.0 AST 12 L ALT 6 L Alkaline Phosphatase 54 C-Reactive Protein Total Protein 6.3 Albumin 3.9 Lipase 24 07/22/23 07/22/23 07/22/23 05:48 07:39 09:26 WBC 4.73 L RBC 3.17 L Hgb 9.8 L Hct 29.9 L MCV 94.3 MCH 30.9 MCHC 32.8 RDW Std Deviation 46.4 H RDW Coeff of [place] 13.5 Plt Count 292 MPV 9.7 Immature Gran % (Auto) 0.2 Neut % (Auto) 43.8 Lymph % (Auto) 38.3 [place] % (Auto) 10.1 Eos % (Auto) 6.8 Baso % (Auto) 0.8 Neut # (Auto) 2.07 Lymph # (Auto) 1.81 [place] # (Auto) 0.48 Eos # (Auto) 0.32 Baso # (Auto) 0.04 Immature Gran # (Auto) 0.01 VBG pH VBG pCO2 VBG pO2 VBG HCO3 VBG O2 Saturation VBG Base Excess Sodium 140 Potassium 3.9 Chloride 106 Carbon Dioxide 29 Anion Gap 5 BUN 17 Creatinine 0.77 Est Cr Clr Drug Dosing 81.5 Est GFR ( Amer) 95.9 Est GFR (Non-Af Amer) 82.8 BUN/Creatinine Ratio 22.1 H Glucose 164 H POC Glucose 152 H Estimat Average Glucose 275 Hemoglobin A1c 11.2 H Lactate Calcium 8.3 L Phosphorus 3.8 C-Reactive Protein < 0.50 Albumin 3.5 07/22/23 07/22/23 07/22/23 11:39 16:49 20:44 WBC RBC Hgb Hct MCV MCH MCHC RDW Std Deviation RDW Coeff of [place] Plt Count MPV Immature Gran % (Auto) Neut % (Auto) Lymph % (Auto) [place] % (Auto) Eos % (Auto) Baso % (Auto) Neut # (Auto) Lymph # (Auto) [place] # (Auto) Eos # (Auto) Baso # (Auto) Immature Gran # (Auto) VBG pH VBG pCO2 VBG pO2 VBG HCO3 VBG O2 Saturation VBG Base Excess Sodium Potassium Chloride Carbon Dioxide Anion Gap BUN Creatinine Est Cr Clr Drug Dosing Est GFR ( Amer) Est GFR (Non-Af Amer) BUN/Creatinine Ratio Glucose POC Glucose 166 H 182 H 154 H Estimat Average Glucose Hemoglobin A1c Lactate Calcium Phosphorus Total Bilirubin Direct Bilirubin AST ALT Alkaline Phosphatase C-Reactive Protein Total Protein Albumin Lipase PG Care Time/CCT Total # of Minutes Spent Total Time Spent with Patient: Total time spent is greater than 50% in coordination of care (as documented) at patient's floor/unit and/or counseling patient: Coding Level of Care Code 42405 SUB INP/OBS CARE 3/50MIN Diagnoses Infected prosthetic mesh of abdominal wall T85.79XA Coag negative Staphylococcus bacteremia R78.81; B95.7 S/P left inguinal hernia repair Z98.890; Z87.19 Poorly controlled type 2 diabetes mellitus E11.65 JOYCE (generalized anxiety disorder) F41.1 Adjustment disorder with mixed anxiety and depressed mood F43.23 Constipation due to opioid therapy K59.03; T40.2X5A Fibromyalgia M79.7 History of pulmonary embolism Z86.711 CAD (coronary artery disease) I25.10 GERD with esophagitis K21.00 Hypertension I10 Hypertriglyceridemia E78.1
[2023-07-22] MEDS ORDERED: VANCOMYCIN HCL 1,000 MG in SODIUM CHLORIDE 0.9% 250 ML IV SCH (14:00)
[2023-07-22] MEDS: NAPROXEN 250 MG TAB PO ONE (14:46)
[2023-07-22] MEDS: VANCOMYCIN HCL 750 MG in SODIUM CHLORIDE 0.9% 250 ML IV SCH (14:46)
[2023-07-22] MEDS: HYDROmorphone INJ 1 MG/ML SYRINGE IV PRN (14:47)
[2023-07-22] MEDS: traZODone HCL 100 MG TAB PO SCH (20:59)
[2023-07-22] MEDS: SERTRALINE HCL 50 MG TABLET PO SCH (20:59)
[2023-07-22] MEDS: METOPROLOL SUCC 25MG EXT REL TAB PO SCH (21:04)
[2023-07-23 07:18] LABS: Estimated Average Glucose 275 mg/dl; Hemoglobin A1C 11.2 % (4.5-5.6)
[2023-07-23 08:13] LABS: Basophils # (auto) 0.05 K/uL (0.00-0.20); Basophils % (auto) 1.1 %; Eosinophils % (auto) 11.5 %; Hematocrit (blood only) 33.7 % (37.0-47.0); Hemoglobin 11.1 g/dl (12.0-16.0); Immature Granulocytes # (auto) 0.02 K/uL (0.01-0.20); Immature Granulocytes % (auto) 0.5 %; Lymphocytes # (auto) 1.46 K/uL (1.20-3.40); Lymphocytes % (auto) 33.5 %; Mean Corpuscular Hemoglobin 31.1 pg (25.0-34.0); Mean Corpuscular Hgb Conc 32.9 g/dL (32.0-36.0); Mean Corpuscular Volume 94.4 fL (80.0-100.0); Mean Platelet Volume 9.4 fL (9.4-12.4); Monocytes # (auto) 0.43 K/uL (0.11-0.59); Monocytes % (auto) 9.9 %; Neutrophils % (auto) 43.5 %; Platelet Count 273 K/uL (130-400); RDW Coefficient of Variation 13.6 % (11.5-14.5); RDW Standard Deviation 46.6 fL (36.4-46.3); Red Blood Count 3.57 M/uL (4.20-5.40); White Blood Count 4.36 K/ul (4.8-10.8)
[2023-07-23 08:23] LABS: Albumin Level 3.7 gm/dl (3.4-5.0); BUN Creatinine Ratio 19.7 (10-20); Calcium 8.6 mg/dl (8.6-10.3); Creatinine Clr Calc Pharmacy 88.4 ml/min; Est GFR (African American) 105.8 ml/min; Est GFR (Non-African American) 91.3 ml/min; Magnesium 1.7 mg/dl (1.7-2.4); Phosphorus 3.5 mg/dl (2.5-4.9); Potassium 4.1 mmol/L (3.5-5.1)
--- NOTE | 2023-07-23 08:27 | Surgery Progress Note ---
Date of Service July 23, 2023 Assessment & Plan (1) Infected prosthetic mesh of abdominal wall: Plan: will plan removal tomorrow pt with no redness/warmth or leukocytosis. fluid from drainage also did not grow any bacteria. nonetheless I have no other explanation for her pain. therefore will plan explant of mesh tomorrow. I do have some concern regarding the pain being out of proportion to clinical findings. will consult pain management to assist with this. (2) Abdominal pain: Admission and Anticipated Discharge Date Admission Date: July 22, 2023 Subjective pt seen. re-admitted for left groin pain. has been on antibiotics all along. Physical Exam Physical Exam: tearful secondary to pain Constitutional: WD/WN, vitals as above no acute distress and not ill appearing Eyes: PERRL, conjunctivae normal, anicteric sclerae EOM intact bilaterally ENMT: external ear and nose normal, oropharynx normal Ears: no hearing impairment Neck: trachea midline, no thyromegaly Respiratory: normal respiratory effort; no respiratory distress and does not use accessory muscles Cardiovascular: Rate/Rhythm: regular rate and regular rhythm Gastrointestinal (Abdomen): soft. extreme tenderness left groin. no erythema or warmth. incision well healed Skin: no rashes, warm and dry Psychiatric: Orientation: alert, oriented x 3 and cooperative Results & Data Vital Signs (Past 12 Hours) Vital Signs Temp Pulse Resp BP BP Pulse Ox O2 Del Method 07/23/23 07:14 36.8 C 62 18 134/84 95 Room Air 07/22/23 21:02 36.9 C 72 18 151/73 H 96 Room Air 07/22/23 20:45 36.8 C 70 16 151/79 H 98 Room Air PG Care Time/CCT Total # of Minutes Spent Total Time Spent with Patient: Total time spent is greater than 50% in coordination of care (as documented) at patient's floor/unit and/or counseling patient: Coding Level of Care Code 50577 SUB INP/OBS CARE 2/35MIN Diagnoses Infected prosthetic mesh of abdominal wall T85.79XA Abdominal pain R10.9
--- NOTE | 2023-07-23 16:05 | Hospitalist Progress Note ---
Date of Service July 23, 2023 Assessment & Plan (1) Infected prosthetic mesh of abdominal wall: Plan: hospitalized 06/26 to 07/12 for acute pancreatitis 2nd to high triglycerides, complicated by coag neg staph bacteremia - source suspected to be a left groin abscess/infected mesh from her prior inguinal hernia repair in 03/2023. was treated with IV antibiotics while hospitalized, then sent home on PO cefadroxil 1gm BID. CRP this hospitalization - 0. Highest CRP during prior hospital stay - 15.3. Presented back to [facility] with severe LLQ/groin pain. Differential - localized nerve entrapment causing pain from infected mesh vs referred pain from lumbar radiculopathy (would be L2 on left) vs intrinsic L hip disease (doubt) vs other. Gen surg was consulted; appreciate their assistance. Dr Red to take to OR tomorrow for explantation of presumed infection mesh. NPO after MN tonight. Cefadroxil was held at admission and vanco IV restarted while awaiting blood cx's but thus far they remain negative. Cont pain control with dilaudid 1.5mg IV q3h prn. Cont gabapentin QID (she had only been taking BID at home). No changes in pain meds today. Dr Red consulted pain management due to concerns about her ongoing pain and for recs moving forward. She has been on narcotics for 10+ years for chronic low back pain. (2) Coag negative Staphylococcus bacteremia: Plan: discovered during prior hospitalization. resolved. see above #1. cont IV vanco. surveillance blood cx's x 2 sets this admission remain negative. (3) S/P left inguinal hernia repair: Plan: 03/2023 - Dr Red see above (4) Poorly controlled type 2 diabetes mellitus: Plan: resume lantus but due to impending NPO status tonight cut by 50% to 5 units BID adjust novolog as needed had been poorly controlled with most recent a1c 16.6% (5) JOYCE (generalized anxiety disorder): Plan: cont home meds (6) Adjustment disorder with mixed anxiety and depressed mood: Plan: cont home meds (7) Constipation due to opioid therapy: Plan: cont senna + miralax had SEVERE Constipation during prior stay requiring go-lytely (8) Fibromyalgia: Plan: cont home meds this is augmenting her pain from #1 (9) History of pulmonary embolism: Plan: noted add lovenox 40mg daily post-op (10) CAD (coronary artery disease): Plan: Hx cardiac stent cont metoprolol succ echo previous admission wnl - normal LV function; normal LV wall motion; no valvular vegetations (11) GERD with esophagitis: Plan: cont PPI twice daily (12) Hypertension: Plan: cont metoprolol (13) Hypertriglyceridemia: Plan: cont fenofibrate 145mg daily Plan DVT proph - add lovenox post-op Admission and Anticipated Discharge Date Admission Date: July 22, 2023 Subjective patient much more comfortable today still with LLQ/left groin pain with radiation down anterior thigh to the knee but it is improved with higher-dose dilaudid and getting her back on usual dose of gabapentin (was on BID dosing at home, now back to QID dosing) Dr Red saw today - plans to take her to OR tomorrow for mesh explantation from left groin/LLQ no new issues overnight Review of Systems Review of Systems: gen - no fevers or chills cv - no chest pain pulm - no dyspnea GI - no abd pain or n/v; moving her bowels Physical Exam Physical Exam: gen - much more comfortable today, NAD mouth - MMM neck - no JVD heart - RRR, s1 s2, no murmur lungs - CTA b/l abd - soft ND BS+; minimally tender today over lowest portion of LLQ (near inguinal hernia scar); no peritoneal signs ext - no edema, pulses 2+ b/l psych - affect normal today; denies suicidal ideation Results & Data Results & Data Vital Signs (Past 12 Hours) Vital Signs Temp Pulse Resp BP Pulse Ox O2 Del Method 07/23/23 15:04 36.6 C 67 16 103/63 95 Room Air 07/23/23 07:14 36.8 C 62 18 134/84 95 Room Air Laboratory Results Laboratory Results - last 24 hr 07/22/23 07/23/23 07/23/23 05:48 07:42 07:51 WBC 4.36 L RBC 3.57 L Hgb 11.1 L Hct 33.7 L MCV 94.4 MCH 31.1 MCHC 32.9 RDW Std Deviation 46.6 H RDW Coeff of [place] 13.6 Plt Count 273 MPV 9.4 Immature Gran % (Auto) 0.5 Neut % (Auto) 43.5 Lymph % (Auto) 33.5 [place] % (Auto) 9.9 Eos % (Auto) 11.5 Baso % (Auto) 1.1 Neut # (Auto) 1.90 Lymph # (Auto) 1.46 [place] # (Auto) 0.43 Eos # (Auto) 0.50 Baso # (Auto) 0.05 Immature Gran # (Auto) 0.02 Sodium 137 Potassium 4.1 Chloride 104 Carbon Dioxide 28 Anion Gap 5 BUN 14 Creatinine 0.71 Est Cr Clr Drug Dosing 88.4 Est GFR ( Amer) 105.8 Est GFR (Non-Af Amer) 91.3 BUN/Creatinine Ratio 19.7 Glucose 253 H POC Glucose 259 H Estimat Average Glucose 275 Hemoglobin A1c 11.2 H Calcium 8.6 Phosphorus 3.5 Magnesium 1.7 Albumin 3.7 Random Vancomycin 07/23/23 07/23/23 07/23/23 11:59 16:49 20:32 WBC RBC Hgb Hct MCV MCH MCHC RDW Std Deviation RDW Coeff of [place] Plt Count MPV Immature Gran % (Auto) Neut % (Auto) Lymph % (Auto) [place] % (Auto) Eos % (Auto) Baso % (Auto) Neut # (Auto) Lymph # (Auto) [place] # (Auto) Eos # (Auto) Baso # (Auto) Immature Gran # (Auto) Sodium Potassium Chloride Carbon Dioxide Anion Gap BUN Creatinine Est Cr Clr Drug Dosing Est GFR ( Amer) Est GFR (Non-Af Amer) BUN/Creatinine Ratio Glucose POC Glucose 143 H 119 H 178 H Estimat Average Glucose Hemoglobin A1c Calcium Phosphorus Magnesium Albumin Random Vancomycin Diagnostic Findings blood cx's negative to date PG Care Time/CCT Total # of Minutes Spent Total Time Spent with Patient: Total time spent is greater than 50% in coordination of care (as documented) at patient's floor/unit and/or counseling patient: Coding Level of Care Code 18647 SUB INP/OBS CARE 2/35MIN Diagnoses Infected prosthetic mesh of abdominal wall T85.79XA Coag negative Staphylococcus bacteremia R78.81; B95.7 S/P left inguinal hernia repair Z98.890; Z87.19 Poorly controlled type 2 diabetes mellitus E11.65 JOYCE (generalized anxiety disorder) F41.1 Adjustment disorder with mixed anxiety and depressed mood F43.23 Constipation due to opioid therapy K59.03; T40.2X5A Fibromyalgia M79.7 History of pulmonary embolism Z86.711 CAD (coronary artery disease) I25.10 GERD with esophagitis K21.00 Hypertension I10 Hypertriglyceridemia E78.1
[2023-07-23] MEDS: LANTUS PER UNIT CHARGE SQ SCH (21:27)
[2023-07-23] MEDS: hydrOXYzine HCl 25 MG TAB PO SCH (21:27)
[2023-07-24] MEDS ORDERED: Nursing to Pharmacy Communication SCH ×2 (02:45→10:00)
[2023-07-24 06:02] LABS: Basophils # (auto) 0.06 K/uL (0.00-0.20); Basophils % (auto) 1.3 %; Eosinophils # (auto) 0.53 K/uL (0.00-0.50); Eosinophils % (auto) 11.9 %; Hematocrit (blood only) 30.7 % (37.0-47.0); Hemoglobin 10.2 g/dl (12.0-16.0); Immature Granulocytes # (auto) 0.01 K/uL (0.01-0.20); Immature Granulocytes % (auto) 0.2 %; Lymphocytes # (auto) 1.59 K/uL (1.20-3.40); Lymphocytes % (auto) 35.7 %; Mean Corpuscular Hemoglobin 30.8 pg (25.0-34.0); Mean Corpuscular Hgb Conc 33.2 g/dL (32.0-36.0); Mean Corpuscular Volume 92.7 fL (80.0-100.0); Mean Platelet Volume 9.6 fL (9.4-12.4); Monocytes # (auto) 0.44 K/uL (0.11-0.59); Monocytes % (auto) 9.9 %; Neutrophils # (auto) 1.83 K/uL (1.40-6.50); Platelet Count 246 K/uL (130-400); RDW Coefficient of Variation 13.4 % (11.5-14.5); RDW Standard Deviation 45.8 fL (36.4-46.3); Red Blood Count 3.31 M/uL (4.20-5.40); White Blood Count 4.46 K/ul (4.8-10.8)
[2023-07-24 06:06] LABS: Albumin Level 3.6 gm/dl (3.4-5.0); BUN Creatinine Ratio 16.3 (10-20); Calcium 8.7 mg/dl (8.6-10.3); Creatinine Clr Calc Pharmacy 68.2 ml/min; Est GFR (African American) 77.3 ml/min; Est GFR (Non-African American) 66.7 ml/min; Magnesium 1.7 mg/dl (1.7-2.4); Phosphorus 3.9 mg/dl (2.5-4.9); Potassium 3.8 mmol/L (3.5-5.1)
[2023-07-24] MEDS: INSULIN ASPART PER UNIT CHARGE SC SCH ×2 (06:10→12:34)
[2023-07-24] MEDS: VANCOMYCIN LEVEL ONE (06:12)
[2023-07-24] MEDS ORDERED: PROPOFOL IV EMULSION 10 MG/ML 20 ML VIAL IV ONE (06:28)
[2023-07-24] MEDS ORDERED: ROCURONIUM BROMIDE 10 MG/ML 5 ML VIAL IV ONE ×2 (06:28→07:58)
[2023-07-24] MEDS ORDERED: fentaNYL citrate PF 100 MCG/2 ML VIAL ONE ×2 (06:28→07:58)
[2023-07-24] MEDS ORDERED: MIDAZOLAM HCL 1 MG/ML 2ML VIAL ONE (06:29)
[2023-07-24] MEDS ORDERED: ONDANSETRON INJ 2 MG/ML 2 ML VIAL ONE (06:30)
[2023-07-24] MEDS ORDERED: LIDOCAINE 2% 2 ML VIAL/AMP(20MG/ML) INFIL ONE (06:30)
[2023-07-24] MEDS ORDERED: DEXAMETHASONE SOD INJ 4 MG/ML VIAL ONE (06:30)
[2023-07-24] MEDS ORDERED: ARTIFICIAL TEARS OP OINT 3.5 GM TUBE ONE (06:32)
--- NOTE | 2023-07-24 06:52 | Anesthesiology Consultation ---
Date of Service July 24, 2023 Assessment & Plan Chart Review Chart Review: Acceptable Risk for Surgery and Patient NOT seen in Pre Admission Testing Consults Requested none History Surgery Operation Date: 07/24/23 07:15 Proposed Procedures p Left Inguinal Exploration, Explant of Mesh, Repair of Hernia - Pollo Red DO Height/Weight Height: 5 ft 7 in Weight: 78 kg Allergies Allergy/AdvReac Type Severity Reaction Status Date / Time Iodinated Contrast Media Allergy Severe STOP Verified 07/21/23 21:34 BREATHING strawberry Allergy Intermediate Hives Verified 07/21/23 21:34 ketorolac [From Toradol] AdvReac Severe can not Verified 07/21/23 21:34 void tramadol AdvReac Severe can not Verified 07/21/23 21:34 void bupropion [From Wellbutrin] AdvReac Intermediate Hallucinati Verified 07/21/23 21:34 ng divalproex sodium AdvReac Intermediate Vomiting Verified 07/21/23 21:34 [From Depakote] metronidazole AdvReac Intermediate VOMITS Verified 07/21/23 21:34 nitrofurantoin AdvReac Intermediate VOMITS Verified 07/21/23 21:34 pregabalin [From Lyrica] AdvReac Intermediate Hallucinati Verified 07/21/23 21:34 ng ziprasidone [From Geodon] AdvReac Intermediate Vomiting Verified 07/21/23 21:34 Medications Home Medications Medication Instructions Recorded Confirmed Last Taken loperamide 2 mg capsule 2 mg PO BID PRN Diarrhea 12/04/22 07/21/23 12/11/22 pantoprazole 40 mg tablet,delayed 40 mg PO BID #60 tabs 12/12/22 07/21/23 07/21/23 08:00 release gabapentin 800 mg tablet 800 mg PO QID #120 tabs 01/25/23 07/21/23 07/21/23 18:00 metoprolol succinate 25 mg 37.5 mg (1.5 x 25 mg) PO HS #45 01/25/23 07/21/23 07/20/23 tablet,extended release 24 hr tabs ondansetron 4 mg disintegrating 4 mg translingual Q8H PRN Nausea 01/25/23 07/21/23 Unknown tablet #60 tabs docusate sodium 100 mg capsule 100 mg PO BID #60 caps 01/06/1607/21/23 07/21/23 08:00 sennosides 8.6 mg tablet (Senokot) 17.2 mg (2 x 8.6 mg) PO QAM #60 03/28/23 07/21/23 07/21/23 tabs sertraline 50 mg tablet 150 mg (3 x 50 mg) PO HS 90 days 03/29/23 07/21/23 07/20/23 #270 tabs trazodone 100 mg tablet 100 mg PO HS #90 tabs 04/12/23 07/21/23 07/20/23 blood-glucose sensor (Dexcom G7 #3 ea 05/11/23 07/16/23 Unknown Sensor device) oxycodone-acetaminophen 7.5 mg-325 1 tab PO Q8H PRN Pain 30 days #90 06/25/23 07/21/23 Unknown mg tablet tabs diclofenac sodium 1 % topical gel 4 g EXT QID PRN as directed 06/27/23 07/21/23 Unknown (Voltaren Arthritis Pain) blood sugar diagnostic (OneTouch #100 ea 07/13/23 07/16/23 Unknown Ultra Test strips) blood-glucose meter (OneTouch #1 ea 07/13/23 07/16/23 Unknown Ultra2 Meter) cefadroxil 1 gram tablet 1,000 mg PO BID hernia mesh 07/13/23 07/21/23 07/21/23 08:00 infection #42 tabs fenofibrate nanocrystallized 145 145 mg PO QAM #30 tabs 07/13/23 07/21/23 07/21/23 mg tablet insulin lispro 100 unit/mL 1 sliding scale dose subcut TIDM 07/13/23 07/21/23 07/21/23 subcutaneous pen (Humalog KwikPen #15 mL (U-100) Insulin) lancets 33 gauge (OneTouch Delica #100 ea 07/13/23 07/16/23 Unknown Plus Lancet) oxycodone 5 mg tablet See Rx Instructions .Route 07/13/23 07/21/23 Unknown .COMPLEX #40 tabs polyethylene glycol 3350 17 gram 17 g PO DAILY #0 ea 07/13/23 07/21/23 07/21/23 oral powder packet (Miralax) insulin glargine 100 unit/mL (3 15 unit subcut BID 07/16/23 07/23/23 07/21/23 08:00 mL) subcutaneous pen (Lantus Solostar U-100 Insulin) Active Medications Generic Name Dose Route Start Last Admin Trade Name Freq PRN Reason Stop Dose Admin Fenofibrate 145 mg 07/22/23 09:00 07/23/23 08:22 Fenofibrate Nanocrystallized 145 Mg Tablet PO 08/21/23 08:59 145 mg QAM MOOSE Administration Gabapentin 800 mg 07/22/23 09:00 07/23/23 21:27 Gabapentin 800 Mg Tab PO 08/21/23 08:59 800 mg QID MOOSE Administration Hydromorphone HCl 1.5 mg 07/22/23 13:47 07/24/23 05:41 Hydromorphone Inj 1 Mg/Ml Syringe IV 08/05/23 03:09 1.5 mg Q3H PRN Administration Severe Pain (Scale 7, 8, 9,10) Hydroxyzine HCl 25 mg 07/23/23 21:00 07/23/23 21:27 Hydroxyzine Hcl 25 Mg Tab PO 08/22/23 20:59 25 mg HS MOOSE Administration Vancomycin HCl 750 mg/ Sodium 265 mls @ 200 mls/hr 07/22/23 14:00 07/24/23 06:12 Chloride IV 07/29/23 13:59 200 mls/hr Q8H MOOSE Administration Insulin Aspart 0 units 07/24/23 06:00 07/24/23 06:10 Insulin Aspart Per Unit Charge SC 08/23/23 05:59 3 units Q6 MOOSE Administration Insulin Glargine 7 units 07/23/23 21:00 07/23/23 21:27 Lantus Per Unit Charge SQ 08/22/23 20:59 7 units BID MOOSE Administration Metoprolol Succinate 37.5 mg 07/22/23 21:00 07/23/23 21:27 Metoprolol Succ 25mg Ext Rel Tab PO 08/21/23 20:59 37.5 mg HS MOOSE Administration Ondansetron HCl 4 mg 07/22/23 03:10 07/22/23 07:56 Ondansetron Inj 2 Mg/Ml 2 Ml Vial IV 08/21/23 03:09 4 mg Q6H PRN Administration Nausea Oxycodone HCl 10 mg 07/22/23 13:46 07/23/23 12:57 Oxycodone Hcl Ir 5 Mg Tab (Immediate Release) PO 08/05/23 03:09 10 mg Q4H PRN Administration Moderate Pain (Scale 4, 5, 6) Pantoprazole Sodium 40 mg 07/22/23 09:00 07/23/23 21:27 Pantoprazole 40 Mg Tab PO 08/21/23 08:59 40 mg BID MOOSE Administration Polyethylene Glycol 17 gm 07/22/23 09:00 07/23/23 08:18 Polyethylene (Miralax) 17 Gm Pack PO 08/21/23 08:59 Not Given DAILY MOOSE Sennosides 17.2 mg 07/22/23 09:00 07/23/23 08:22 Senna 8.6 Mg Tab PO 08/21/23 08:59 17.2 mg QAM MOOSE Administration Sertraline HCl 150 mg 07/22/23 21:00 07/23/23 21:27 Sertraline Hcl 50 Mg Tablet PO 08/21/23 20:59 150 mg HS MOOSE Administration Trazodone HCl 100 mg 07/22/23 21:00 07/23/23 21:27 Trazodone Hcl 100 Mg Tab PO 08/21/23 20:59 100 mg HS MOOSE Administration NPO Date Last Intake of Fluids: 07/23/23 Time Last Intake of Fluids: 17:00 Date Last Intake of Solids: 07/23/23 Time Last Intake of Solids: 17:00 Past Medical History Medical History Coag negative Staphylococcus bacteremia Infected prosthetic mesh of abdominal wall Abdominal pain Hypertriglyceridemia Incarcerated left inguinal hernia Fever Chronic back pain History of chest pain Fibromyalgia History of pulmonary embolism roughly 15yrs ago--unknown cause--no blood thinners COVID-19 11/08/[address] [facility]--head cold symptoms, slight cough--no symptoms now IBS (irritable bowel syndrome) TIA (transient ischemic attack) "more than 15yrs ago"--unknown cause, no deficits--no neurologist Hypertension Hyperlipidemia GERD with esophagitis Diabetes IDDM Depression CAD (coronary artery disease) Past Family History Family History Mother Respiratory arrest Coronary heart disease Hypertension Father Cancer Sister Diabetes Multiple sclerosis Other No family history of adverse response to anesthesia Past Surgical History Surgical History S/P left inguinal hernia repair (03/26/23) Open Left Inguinal Hernia Repair with Mesh(Left) - Pollo Red DO History of fusion of cervical spine normal ROM History of repair of right rotator cuff History of bladder suspension procedure History of laparoscopy lysis of adhesions removal History of esophagogastroduodenoscopy (EGD) History of colonoscopy History of tooth extraction all teeth removed Hx of cholecystectomy H/O tubal ligation H/O: hysterectomy bhupendra bso H/O hernia repair x2 S/P coronary artery stent placement 5yrs ago @ [facility]--1 stent total H/O cardiac catheterization x1 roughly 5 yrs ago @ [facility]--1 stent placed--follows with Dr. Moy Social History Smoking Status: Former smoker Do You Dip or Chew Tobacco: No Smoking End Date: 29 years ago Hx Alcohol Use: No Hx Substance Use: No substance use type: does not use Physical Exam Vital Signs Last Vital Signs Temp 37 C 07/24/23 06:37 Pulse 63 07/24/23 06:37 Resp 18 07/24/23 06:37 BP 167/88 H 07/24/23 06:37 Pulse Ox 97 07/24/23 06:37 O2 Del Method Room Air 07/24/23 06:37 Constitutional WD/WN, vitals as above no acute distress and not ill appearing Eyes PERRL, conjunctivae normal, anicteric sclerae EOM intact bilaterally ENMT external ear and nose normal, oropharynx normal Ears: no hearing impairment Neck trachea midline, no thyromegaly Respiratory normal respiratory effort; no respiratory distress, no labored breathing and does not use accessory muscles Cardiovascular Rate/Rhythm: regular rate and regular rhythm Gastrointestinal (Abdomen) Inspection/Auscultation: abdomen normal to inspection; abdomen not distended Percussion/Palpation: + abdomen tender ( significant tenderness on palpation of the left inguinal region) and abdomen soft; no guarding and abdomen not rigid Skin no rashes, warm and dry Psychiatric A+Ox3, euthymic affect Orientation: alert, oriented x 3 and cooperative Testing Laboratory Results 07/24/23 05:24 07/24/23 05:24 Hemoglobin A1c 11.2 % (4.5-5.6) H 07/22/23 05:48 07/22/23 09:26 Aerobic Blood Culture - Preliminary Blood No growth in Aerobic bottle after 24 hours. Anaerobic Blood Culture - Preliminary No growth in Anaerobic bottle after 24 hours. 07/22/23 09:35 Aerobic Blood Culture - Preliminary Blood No growth in Aerobic bottle after 24 hours. Anaerobic Blood Culture - Preliminary No growth in Anaerobic bottle after 24 hours. 07/24/23 07/23/23 05:42 20:32 POC Glucose 202 H 178 H
--- NOTE | 2023-07-24 06:52 | History & Physical Bridge Note ---
Date of Service July 24, 2023 History & Physical Bridge Note I have examined the patient, reviewed the History & Physical and in the interval since the performance of the History & Physical I have noted the following changes of clinical significance: no changes noted will plan left inguinal exploration, explant of old mesh, abdominal wall reconstruction. we discussed the risks ( bleeding/infection/blood clots/chronic pain etc...). questions answered. pt agreeable.
[2023-07-24] MEDS ORDERED: ONDANSETRON INJ 2 MG/ML 2 ML VIAL IV PRN (06:53)
[2023-07-24] MEDS ORDERED: ATROPINE SULFATE 0.1 MG/ML 10ML SYR IV PRN (06:53)
[2023-07-24] MEDS ORDERED: ePHEDrine sulfate 50 MG/ML AMP IV PRN (06:53)
[2023-07-24] MEDS ORDERED: fentaNYL citrate PF 100 MCG/2 ML VIAL IV PRN (06:53)
[2023-07-24] MEDS ORDERED: SUGAMMADEX SODIUM 200 MG/2 ML VIAL IV ONE (08:05)
[2023-07-24] MEDS: BUPIVACAINE/EPINEPHRINE 0.5% MPF 1:200,000 30 ML VIAL ONE (08:20)
[2023-07-24] MEDS: BUPIVACAINE LIPOSOME 1.3% 266 MG/20 ML VIAL ONE (08:26)
--- NOTE | 2023-07-24 08:33 | Operative Report ---
PG Post Operative Report Pre & Post Diagnosis Operation Date: 07/24/23 07:15 Pre-Op Diagnosis: (1) Infected prosthetic mesh of abdominal wall: Post-Op Diagnosis: (1) Infected prosthetic mesh of abdominal wall: I identified the patient and participated in the time-out.: Yes Procedure Operation Date: 07/24/23 07:15 Actual Procedures p Left Inguinal Exploration, Explant of Mesh, abdominal wall reconstructions - Pollo Red DO Surgeon Pollo Red DO Tester Sound anne marie Jose Estimated Blood Loss 25 Findings Consistent with Post-Op Diagnosis Specimens explanted mesh Description of Procedure After informed consent was obtained the patient was taken to the operating room and placed in supine position. After successful intubation the abdomen was sterilely prepped and draped in usual fashion. I began by using a 15 blade scalpel to open her prior left inguinal incision. This was carried down through soft tissue using cautery. The external oblique aponeurosis was skeletonized and opened with a fresh blade. Once in the inguinal canal there was a lot of inflammation from her prior repair. There was no gross abscess or purulent fluid. I used primary finger fractionation scissor lysis and small amounts of cautery to work my way down to the pubic symphysis. The old mesh was in place. There was an onlay patch as well as a plug. The dissection was difficult and tedious due to inflammation and scar tissue. Nonetheless I was able to release the mesh from the pubic symphysis using sharp scissor lysis. I then used finger fractionation to peel up the mesh from underlying tissue. Fortunately the plug was associated with the patch and I was able to remove both together. Once I had the mesh completely explanted this left an abdominal wall defect. I thoroughly irrigated the wound first. It was very difficult to delineate specific anatomy. I reapproximated the fascial tissue medial to the inguinal ligament laterally using 0 Prolene in simple interrupted fashion. This completely covered the floor of the inguinal canal. I thoroughly irrigated the wound again. Because of infection I certainly was not going to place any new mesh. I next reapproximated the external oblique aponeurosis again using 0 Prolene this time running fashion. The wound was thoroughly irrigated. Deep tissue was closed using 3-0 Vicryl and skin was closed using 4-0 Monocryl. 20 cc of Exparel was injected around the wound for postoperative analgesia and skin glue used as a dressing. Patient was awakened, extubated and transferred to recovery in stable condition. My nurse practitioner assisted the entire case and was instrumental in providing exposure assisting with explant of the mesh, abdominal wall reconstruction and wound closure. I attest to the content of the Intraoperative Record and any orders documented therein. Any exceptions are noted below.
--- NOTE | 2023-07-24 08:51 | Pharmacy Report ---
Pharmacy PK ABX Note - Date of Service July 24, 2023 - Assessment and Plan Assessment 07/23: Reviewed vancomycin level, predicting supratherapeutic AUC/FUENTES, decrease frequency 07/21: 62 year old F receiving Vancomycin for treatment of possible infected prosthetic mesh. * Day #1 of antimicrobial therapy. * Afebrile and without leukocytosis. Renal fxn slightly elevated from baseline but improving. * Patient was admitted earlier this month for bacteremia and did well on vancomycin 750 mg IV every 8 hours so will continue that dose. * Blood cultures pending. Plan Vancomycin * Loading dose: 1750 mg IV x 1 * Maintenance dose: 750 mg IV every 8 hours * Decrease frequency to vancomycin 750mg every 12 hours * Regimen is predicted to achieve target AUC/FUENTES of 400-600 mg/L.hr * Random level ordered for: 07/26/23 with AM labs Pharmacy will continue to follow and will adjust dose/frequency as necessary. Thank you. Pharmacy has transitioned to AUC monitoring for vancomycin. AUC/FUENTES is the preferred PK/PD target and is associated with decreased risk of nephrotoxicity compared to traditional trough targets.
--- NOTE | 2023-07-24 09:26 | Anesthesiology Progress Note ---
Date of Service July 24, 2023 Anesthesia Post Procedure Vital Signs Vital Signs: Temp Pulse Pulse Resp BP BP Pulse Ox 07/24/23 09:20 64 12 166/89 H 96 07/24/23 09:10 62 14 164/96 H 95 07/24/23 09:00 60 16 153/84 H 96 07/24/23 08:50 63 20 168/95 H 96 07/24/23 08:46 36.4 C L 64 16 172/99 H 95 07/24/23 06:37 37 C 63 18 167/88 H 97 07/23/23 19:37 37.1 C 72 16 136/75 94 07/23/23 15:04 36.6 C 67 16 103/63 95 O2 Del Method O2 Flow Rate 07/24/23 09:20 Nasal Cannula 2 07/24/23 09:10 Nasal Cannula 2 07/24/23 09:00 Nasal Cannula 2 07/24/23 08:50 Nasal Cannula 2 07/24/23 08:46 Nasal Cannula 2 07/24/23 06:37 Room Air 07/23/23 19:37 Room Air 07/23/23 15:04 Room Air Pain Intensity Left Groin: Pain Intensity: 7 Transfer of Care Handoff Completed per policy Notes Mental Status: alert / awake / arousable Patient Amnestic to Procedure: Yes Nausea / Vomiting: adequately controlled Pain: adequately controlled Airway Patency, RR, SpO2: stable & adequate BP & HR: stable & adequate Hydration State: stable & adequate Anesthetic Complications: no major complications apparent and Pt Satisfied with anesthetic care
--- NOTE | 2023-07-24 10:03 | Pain Management Consultation ---
Date of Consultation July 24, 2023 History of Present Illness Attending Physician: Jovanna Holloway MD History of Present Illness Attempted to see patient this morning, but she was off the floor to surgery. Will attempt to evaluate patient tomorrow morning. Allergies Allergy/AdvReac Type Severity Reaction Status Date / Time Iodinated Contrast Media Allergy Severe STOP Verified 07/21/23 21:34 BREATHING strawberry Allergy Intermediate Hives Verified 07/21/23 21:34 ketorolac [From Toradol] AdvReac Severe can not Verified 07/21/23 21:34 void tramadol AdvReac Severe can not Verified 07/21/23 21:34 void bupropion [From Wellbutrin] AdvReac Intermediate Hallucinati Verified 07/21/23 21:34 ng divalproex sodium AdvReac Intermediate Vomiting Verified 07/21/23 21:34 [From Depakote] metronidazole AdvReac Intermediate VOMITS Verified 07/21/23 21:34 nitrofurantoin AdvReac Intermediate VOMITS Verified 07/21/23 21:34 pregabalin [From Lyrica] AdvReac Intermediate Hallucinati Verified 07/21/23 21:34 ng ziprasidone [From Geodon] AdvReac Intermediate Vomiting Verified 07/21/23 21:34 Home Medications Medication Instructions Recorded Confirmed Type loperamide 2 mg capsule 2 mg PO BID PRN Diarrhea 12/04/22 07/21/23 History pantoprazole 40 mg tablet,delayed 40 mg PO BID #60 tabs 12/12/22 07/21/23 Rx release gabapentin 800 mg tablet 800 mg PO QID #120 tabs 01/25/23 07/21/23 Rx metoprolol succinate 25 mg 37.5 mg (1.5 x 25 mg) PO HS #45 01/25/23 07/21/23 Rx tablet,extended release 24 hr tabs ondansetron 4 mg disintegrating 4 mg translingual Q8H PRN Nausea 01/25/23 07/21/23 Rx tablet #60 tabs docusate sodium 100 mg capsule 100 mg PO BID #60 caps 03/28/23 07/21/23 Rx sennosides 8.6 mg tablet (Senokot) 17.2 mg (2 x 8.6 mg) PO QAM #60 03/28/23 07/21/23 Rx tabs sertraline 50 mg tablet 150 mg (3 x 50 mg) PO HS 90 days 03/29/23 07/21/23 Rx #270 tabs trazodone 100 mg tablet 100 mg PO HS #90 tabs 04/12/23 07/21/23 Rx blood-glucose sensor (Dexcom G7 #3 ea 05/11/23 07/16/23 Rx Sensor device) oxycodone-acetaminophen 7.5 mg-325 1 tab PO Q8H PRN Pain 30 days #90 06/25/23 07/21/23 Rx mg tablet tabs diclofenac sodium 1 % topical gel 4 g EXT QID PRN as directed 06/27/23 07/21/23 History (Voltaren Arthritis Pain) blood sugar diagnostic (OneTouch #100 ea 07/13/23 07/16/23 Rx Ultra Test strips) blood-glucose meter (OneTouch #1 ea 07/13/23 07/16/23 Rx Ultra2 Meter) cefadroxil 1 gram tablet 1,000 mg PO BID hernia mesh 07/13/23 07/21/23 Rx infection #42 tabs fenofibrate nanocrystallized 145 145 mg PO QAM #30 tabs 07/13/23 07/21/23 Rx mg tablet insulin lispro 100 unit/mL 1 sliding scale dose subcut TIDM 07/13/23 07/21/23 Rx subcutaneous pen (Humalog KwikPen #15 mL (U-100) Insulin) lancets 33 gauge (OneTouch Delica #100 ea 07/13/23 07/16/23 Rx Plus Lancet) oxycodone 5 mg tablet See Rx Instructions .Route 07/13/23 07/21/23 Rx .COMPLEX #40 tabs polyethylene glycol 3350 17 gram 17 g PO DAILY #0 ea 07/13/23 07/21/23 Rx oral powder packet (Miralax) insulin glargine 100 unit/mL (3 15 unit subcut BID 07/16/23 07/23/23 History mL) subcutaneous pen (Lantus Solostar U-100 Insulin) Patient History Medical History (Updated 07/22/23 @ 12:03 by Luz Marina Ren MD) Coag negative Staphylococcus bacteremia Infected prosthetic mesh of abdominal wall Abdominal pain Hypertriglyceridemia Incarcerated left inguinal hernia Fever Chronic back pain History of chest pain Fibromyalgia History of pulmonary embolism roughly 15yrs ago--unknown cause--no blood thinners COVID-19 11/08/2022 @ [facility]--head cold symptoms, slight cough--no symptoms now IBS (irritable bowel syndrome) TIA (transient ischemic attack) "more than 15yrs ago"--unknown cause, no deficits--no neurologist Hypertension Hyperlipidemia GERD with esophagitis Diabetes IDDM Depression CAD (coronary artery disease) Surgical History (Updated 07/24/23 @ 08:54 by Avril Mcclelland RN) History of surgery (07/24/23) Left Inguinal Exploration, Explant of Mesh, abdominal wall reconstructions - Pollo Red DO S/P left inguinal hernia repair (03/26/23) Open Left Inguinal Hernia Repair with Mesh(Left) - Pollo Red DO History of fusion of cervical spine normal ROM History of repair of right rotator cuff History of bladder suspension procedure History of laparoscopy lysis of adhesions removal History of esophagogastroduodenoscopy (EGD) History of colonoscopy History of tooth extraction all teeth removed Hx of cholecystectomy H/O tubal ligation H/O: hysterectomy bhupendra bso H/O hernia repair x2 S/P coronary artery stent placement 5yrs ago @ [facility] [place]--1 stent total H/O cardiac catheterization x1 roughly 5 yrs ago @ [facility]--1 stent placed--follows with Dr. Moy Family History Mother Respiratory arrest Coronary heart disease Hypertension Father Cancer Sister Diabetes Multiple sclerosis Other No family history of adverse response to anesthesia Social History Smoking Status: Former smoker packs per day: 1; Second Hand Exposure: No; Do You Dip or Chew Tobacco: No; Hx Alcohol Use: No Hx Substance Use: No Preferred Language: Kinyarwanda Communication Ability: Effective Visual Impairment: No Limitations Yarn Rewinder Required: No Beliefs That Will Affect Care: None Current Living Situation: Alone Feels Safe at Home: Yes Assistive Devices: Cane and Walker
--- NOTE | 2023-07-24 16:37 | Hospitalist Progress Note ---
Date of Service July 24, 2023 Assessment & Plan (1) Infected prosthetic mesh of abdominal wall: Plan: hospitalized 06/26 to 07/12 for acute pancreatitis 2nd to high triglycerides, complicated by coag neg staph bacteremia - source suspected to be a left groin abscess/infected mesh from her prior inguinal hernia repair in 03/2023. was treated with IV antibiotics while hospitalized, then sent home on PO cefadroxil 1gm BID. CRP this hospitalization - 0. Highest CRP during prior hospital stay - 15.3. Presented back to [facility] with severe LLQ/groin pain. CT abdomen and pelvis and pelvis MRI obtained, no abscess only small amount of fluid at the mesh site Mesh was explanted by Dr. Red 07/23 Continue IV vancomycin (or cefadroxil) until 48h post mesh removal. Follow cultures Cont pain control with dilaudid 1.5mg IV q3h prn. Last admission developed hyperalgesia and severe OIC on IV hydromorphone, required fast taper of IV hydromorphone then tapering oxycodone to home dose. Cont gabapentin QID (she had only been taking BID at home). Dr Red consulted pain management due to concerns about her ongoing pain and for recs moving forward. She has been on narcotics for 10+ years for chronic low back pain. (2) Coag negative Staphylococcus bacteremia: Plan: discovered during prior hospitalization. resolved. see above #1. cont IV vanco. surveillance blood cx's x 2 sets this admission remain negative. (3) S/P left inguinal hernia repair: Plan: 03/2023 - Dr Red see above (4) Poorly controlled type 2 diabetes mellitus: Plan: increase glargine to 10 units BID adjust novolog as needed met with DM educator and insulin plan adjusted last month had been poorly controlled with most recent a1c 16.6% (5) JOYCE (generalized anxiety disorder): Plan: cont home meds (6) Adjustment disorder with mixed anxiety and depressed mood: Plan: cont home meds (7) Constipation due to opioid therapy: Plan: cont senna + miralax had SEVERE Constipation during prior stay requiring go-lytely (8) Fibromyalgia: Plan: cont home meds this is augmenting her pain from #1 (9) History of pulmonary embolism: Plan: noted add lovenox 40mg daily post-op (10) CAD (coronary artery disease): Plan: Hx cardiac stent cont metoprolol succ echo previous admission wnl - normal LV function; normal LV wall motion; no valvular vegetations (11) GERD with esophagitis: Plan: cont PPI twice daily (12) Hypertension: Plan: cont metoprolol (13) Hypertriglyceridemia: Plan: cont fenofibrate 145mg daily Plan DVT proph - add lovenox post-op Admission and Anticipated Discharge Date Admission Date: July 22, 2023 Subjective seen postop and still groggy. LLQ/incisional pain controlled. No dyspnea or nausea. Physical Exam 2 Physical Exam: PHYSICAL EXAMINATION Last 24h vital signs reviewed, see documentation in flowsheet General: Lying on side in bed mildly groggy and sleepy HEENT: Normocephalic, atraumatic, pupils round and equal, sclerae anicteric, no conjunctival injection, moist mucus membranes Lungs: Normal respiratory effort. Clear to auscultation bilaterally. No RRW Heart: Regular rate and rhythm, no murmurs. No JVD Abdomen: Soft, nontender, nondistended. Bowel sounds present. Extremities: Warm, dry, well-perfused. No extremity edema. Neuro: Sleepy but aroused easily to voice, face symmetric, moves 4 extremities well Psych: Normal affect and behavior Results & Data Results & Data Vital Signs (Past 12 Hours) Vital Signs Temp Pulse Pulse Resp BP Pulse Ox O2 Del Method 07/24/23 14:52 36.8 C 66 18 145/80 H 95 Room Air 07/24/23 12:08 Nasal Cannula 07/24/23 10:58 36.8 C 73 16 168/84 H 95 Nasal Cannula 07/24/23 10:33 36.4 C L 69 14 162/90 H 94 Nasal Cannula 07/24/23 10:18 36.8 C 68 18 165/93 H 95 Nasal Cannula 07/24/23 10:00 36.7 C 67 16 168/98 H 96 Nasal Cannula 07/24/23 09:45 36.7 C 69 16 164/93 H 95 Nasal Cannula 07/24/23 09:30 37.1 C 63 12 166/90 H 97 Nasal Cannula 07/24/23 09:20 64 12 166/89 H 96 Nasal Cannula 07/24/23 09:10 62 14 164/96 H 95 Nasal Cannula 07/24/23 09:00 60 16 153/84 H 96 Nasal Cannula 07/24/23 08:50 63 20 168/95 H 96 Nasal Cannula 07/24/23 08:46 36.4 C L 64 16 172/99 H 95 Nasal Cannula 07/24/23 06:37 37 C 63 18 167/88 H 97 Room Air O2 Flow Rate 07/24/23 14:52 07/24/23 12:08 2 07/24/23 10:58 2 07/24/23 10:33 2 07/24/23 10:18 2 07/24/23 10:00 2 07/24/23 09:45 2 07/24/23 09:30 2 07/24/23 09:20 2 07/24/23 09:10 2 07/24/23 09:00 2 07/24/23 08:50 2 07/24/23 08:46 2 07/24/23 06:37 Laboratory Results 07/24/23 05:24 07/24/23 05:24 PG Care Time/CCT Total # of Minutes Spent Total Time Spent with Patient: Total time spent is greater than 50% in coordination of care (as documented) at patient's floor/unit and/or counseling patient: Coding Level of Care Code 14361 SUB INP/OBS CARE 2/35MIN Diagnoses Infected prosthetic mesh of abdominal wall T85.79XA Coag negative Staphylococcus bacteremia R78.81; B95.7 S/P left inguinal hernia repair Z98.890; Z87.19 Poorly controlled type 2 diabetes mellitus E11.65 JOYCE (generalized anxiety disorder) F41.1 Adjustment disorder with mixed anxiety and depressed mood F43.23 Constipation due to opioid therapy K59.03; T40.2X5A Fibromyalgia M79.7 History of pulmonary embolism Z86.711 CAD (coronary artery disease) I25.10 GERD with esophagitis K21.00 Hypertension I10 Hypertriglyceridemia E78.1
[2023-07-24] MEDS: VANCOMYCIN HCL 750 MG in SODIUM CHLORIDE 0.9% 250 ML IV SCH (17:27)
[2023-07-24] MEDS: LANTUS PER UNIT CHARGE SQ SCH (21:25)
[2023-07-25 07:25] LABS: Basophils # (auto) 0.05 K/uL (0.00-0.20); Basophils % (auto) 0.7 %; Eosinophils # (auto) 0.55 K/uL (0.00-0.50); Eosinophils % (auto) 7.5 %; Hematocrit (blood only) 31.5 % (37.0-47.0); Hemoglobin 10.4 g/dl (12.0-16.0); Immature Granulocytes % (auto) 1.4 %; Lymphocytes # (auto) 1.15 K/uL (1.20-3.40); Lymphocytes % (auto) 15.6 %; Mean Platelet Volume 9.7 fL (9.4-12.4); Monocytes # (auto) 0.55 K/uL (0.11-0.59); Monocytes % (auto) 7.5 %; Neutrophils # (auto) 4.98 K/uL (1.40-6.50); Neutrophils % (auto) 67.3 %; Platelet Count 250 K/uL (130-400); RDW Coefficient of Variation 13.5 % (11.5-14.5); Red Blood Count 3.35 M/uL (4.20-5.40); White Blood Count 7.38 K/ul (4.8-10.8)
[2023-07-25 07:49] LABS: BUN Creatinine Ratio 23.5 (10-20); Calcium 8.8 mg/dl (8.6-10.3); Creatinine Clr Calc Pharmacy 77.5 ml/min; Est GFR (African American) 90.2 ml/min; Est GFR (Non-African American) 77.8 ml/min; Magnesium 1.7 mg/dl (1.7-2.4); Potassium 3.9 mmol/L (3.5-5.1)
--- NOTE | 2023-07-25 09:12 | Pain Management Consultation ---
Date of Consultation July 25, 2023 Assessment & Plan (1) Infected prosthetic mesh of abdominal wall: (2) Abdominal pain: (3) Opioid dependence: (4) Constipation due to opioid therapy: Plan 1. Patient with left lower quadrant pain likely associated with infected mesh which was explanted yesterday by Dr. Red. Patient is not currently a candidate for interventional treatment with ilioinguinal versus genitofemoral nerve block in the postsurgical setting given history of infected mesh. Expectations were discussed with the patient regarding healing and associated postsurgical pain. Patient was encouraged to utilize her currently prescribed Oxy IR for breakthrough pain initially and reserve IV hydromorphone for pain not well-controlled with Oxy IR. We discussed transitioning away from IV hydromorphone over the next 24-48 hours for discharge planning purposes. Patient verbalized understanding. Would recommend she return to her chronic utilization of Percocet in the outpatient setting upon discharge. All the patient's questions were answered at the end of the visit. History of Present Illness Reason for Consultation: Intractable left lower quadrant abdominal pain with opioid dependency Requesting Physician: Angélica MARTINO Attending Physician: Jovanna Holloway MD History of Present Illness Mrs. Holliday is a 62-year-old white female with past medical history significant for acute pancreatitis, hypertriglyceridemia, poorly controlled diabetes mellitus, chronic diarrhea, migraine, generalized anxiety disorder, fibromyalgia, adjustment disorder, history of PE, CAD, hyperlipidemia, hypertension, IBS and chronic opioid dependency who was admitted due to intractable left lower quadrant abdominal pain. The patient has history of a left incarcerated hernia with herniorrhaphy in March 2023 with mesh repair. The patient reports intermittent pain since that time with worsening pain over the past month. She had an admission earlier this month with pain complaints in the left lower quadrant/groin location and was found to have positive blood cultures and placed on antibiotic therapy. She did have drainage of the left groin fluid collection which was culture negative. She was discharged home on oral antibiotic therapy but then readmitted over the past few days due to worsening pain. She underwent a left inguinal exploration, explant of mesh and abdominal wall reconstruction with Dr. Red yesterday. She reports that her pain is less severe and less constant today but remains fairly persistent in the left lower quadrant. She describes the pain as aching and episodically sharp with movement. Patient does utilize chronic opiate therapy in the outpatient setting due to chronic low back pain and fibromyalgia per her report. She is receiving #90 oxycodone/acetaminophen 7.5/325 mg tablets per month upon review of PDMP as prescribed by her PCP. Patient has been using significant amount of hydromorphone upon this admission at approximately 10 mg per 24 hours, most recently receiving hydromorphone 1.5 mg at 0629. Patient's current pain is ranging between a 4-7/10. She denies radiation of the pain. Patient has no further constitutional complaints. Plan of care discussed with Dr. Reta Ellison. Allergies Allergy/AdvReac Type Severity Reaction Status Date / Time Iodinated Contrast Media Allergy Severe STOP Verified 07/21/23 21:34 BREATHING strawberry Allergy Intermediate Hives Verified 07/21/23 21:34 ketorolac [From Toradol] AdvReac Severe can not Verified 07/21/23 21:34 void tramadol AdvReac Severe can not Verified 07/21/23 21:34 void bupropion [From Wellbutrin] AdvReac Intermediate Hallucinati Verified 07/21/23 21:34 ng divalproex sodium AdvReac Intermediate Vomiting Verified 07/21/23 21:34 [From Depakote] metronidazole AdvReac Intermediate VOMITS Verified 07/21/23 21:34 nitrofurantoin AdvReac Intermediate VOMITS Verified 07/21/23 21:34 pregabalin [From Lyrica] AdvReac Intermediate Hallucinati Verified 07/21/23 21:34 ng ziprasidone [From Geodon] AdvReac Intermediate Vomiting Verified 07/21/23 21:34 Home Medications Medication Instructions Recorded Confirmed Type loperamide 2 mg capsule 2 mg PO BID PRN Diarrhea 12/04/22 07/21/23 History pantoprazole 40 mg tablet,delayed 40 mg PO BID #60 tabs 12/12/22 07/21/23 Rx release gabapentin 800 mg tablet 800 mg PO QID #120 tabs 01/25/23 07/21/23 Rx metoprolol succinate 25 mg 37.5 mg (1.5 x 25 mg) PO HS #45 01/25/23 07/21/23 Rx tablet,extended release 24 hr tabs ondansetron 4 mg disintegrating 4 mg translingual Q8H PRN Nausea 01/25/23 07/21/23 Rx tablet #60 tabs docusate sodium 100 mg capsule 100 mg PO BID #60 caps 03/28/23 07/21/23 Rx sennosides 8.6 mg tablet (Senokot) 17.2 mg (2 x 8.6 mg) PO QAM #60 03/28/23 07/21/23 Rx tabs sertraline 50 mg tablet 150 mg (3 x 50 mg) PO HS 90 days 03/29/23 07/21/23 Rx #270 tabs trazodone 100 mg tablet 100 mg PO HS #90 tabs 04/12/23 07/21/23 Rx blood-glucose sensor (Dexcom G7 #3 ea 05/11/23 07/16/23 Rx Sensor device) oxycodone-acetaminophen 7.5 mg-325 1 tab PO Q8H PRN Pain 30 days #90 06/25/23 07/21/23 Rx mg tablet tabs diclofenac sodium 1 % topical gel 4 g EXT QID PRN as directed 06/27/23 07/21/23 History (Voltaren Arthritis Pain) blood sugar diagnostic (OneTouch #100 ea 07/13/23 07/16/23 Rx Ultra Test strips) blood-glucose meter (OneTouch #1 ea 07/13/23 07/16/23 Rx Ultra2 Meter) cefadroxil 1 gram tablet 1,000 mg PO BID hernia mesh 07/13/23 07/21/23 Rx infection #42 tabs fenofibrate nanocrystallized 145 145 mg PO QAM #30 tabs 07/13/23 07/21/23 Rx mg tablet insulin lispro 100 unit/mL 1 sliding scale dose subcut TIDM 07/13/23 07/21/23 Rx subcutaneous pen (Humalog KwikPen #15 mL (U-100) Insulin) lancets 33 gauge (OneTouch Delica #100 ea 07/13/23 07/16/23 Rx Plus Lancet) oxycodone 5 mg tablet See Rx Instructions .Route 07/13/23 07/21/23 Rx .COMPLEX #40 tabs polyethylene glycol 3350 17 gram 17 g PO DAILY #0 ea 07/13/23 07/21/23 Rx oral powder packet (Miralax) insulin glargine 100 unit/mL (3 15 unit subcut BID 07/16/23 07/23/23 History mL) subcutaneous pen (Lantus Solostar U-100 Insulin) Patient History Medical History (Updated 07/25/23 @ 09:08 by Priyank Interiano PA-C) Opioid dependence Coag negative Staphylococcus bacteremia Infected prosthetic mesh of abdominal wall Abdominal pain Hypertriglyceridemia Incarcerated left inguinal hernia Fever Chronic back pain History of chest pain Fibromyalgia History of pulmonary embolism roughly 15yrs ago--unknown cause--no blood thinners COVID-19 11/08/2022 @ [facility]--head cold symptoms, slight cough--no symptoms now IBS (irritable bowel syndrome) TIA (transient ischemic attack) "more than 15yrs ago"--unknown cause, no deficits--no neurologist Hypertension Hyperlipidemia GERD with esophagitis Diabetes IDDM Depression CAD (coronary artery disease) Surgical History (Updated 07/24/23 @ 08:54 by Avril Mcclelland RN) History of surgery (07/24/23) Left Inguinal Exploration, Explant of Mesh, abdominal wall reconstructions - Pollo Red DO S/P left inguinal hernia repair (03/26/23) Open Left Inguinal Hernia Repair with Mesh(Left) - Pollo Red DO History of fusion of cervical spine normal ROM History of repair of right rotator cuff History of bladder suspension procedure History of laparoscopy lysis of adhesions removal History of esophagogastroduodenoscopy (EGD) History of colonoscopy History of tooth extraction all teeth removed Hx of cholecystectomy H/O tubal ligation H/O: hysterectomy bhupendra bso H/O hernia repair x2 S/P coronary artery stent placement 5yrs ago @ [facility]--1 stent total H/O cardiac catheterization x1 roughly 5 yrs ago @ [facility]--1 stent placed--follows with Dr. Moy Family History Mother Respiratory arrest Coronary heart disease Hypertension Father Cancer Sister Diabetes Multiple sclerosis Other No family history of adverse response to anesthesia Social History Smoking Status: Former smoker packs per day: 1; Second Hand Exposure: No; Do You Dip or Chew Tobacco: No; Hx Alcohol Use: No Hx Substance Use: No Preferred Language: Mongolian Communication Ability: Effective Visual Impairment: No Limitations Infectious Disease Physician Required: No Beliefs That Will Affect Care: None Current Living Situation: Alone Feels Safe at Home: Yes Assistive Devices: Cane and Walker Physical Exam Physical Exam: General: Patient lying quietly in exam room in no acute distress. Speech and thought process appropriate. Mood and affect appropriate. Cognition intact. Head: Normocephalic and atraumatic. ENT: No evidence of nasal or oral mucosal lesions. Mucous membranes are moist. Eyes: Pupils equal round reactive to light. Neck: Supple without adenopathy and full range of motion. Abdomen: Soft and nondistended. No organomegaly. Bowel sounds active. Incision is well-approximated in the left lower quadrant. There is no erythema or discharge present. She is generally tender to palpation over the left lower quadrant near the incisional site. Neurologic: Cranial nerves grossly intact. Ambulatory function not witnessed.
--- NOTE | 2023-07-25 09:29 | Surgery Progress Note ---
Date of Service July 25, 2023 Assessment & Plan (1) Infected prosthetic mesh of abdominal wall: Plan: POD 1 doing well appreciate pain management assistance ok from my standpoint for d/c. Admission and Anticipated Discharge Date Admission Date: July 22, 2023 Subjective pt seen. doing well. no major complaints. gavin diet Physical Exam Physical Exam: alert. nad abd: soft. expected tenderness. Results & Data Vital Signs (Past 12 Hours) Vital Signs Temp Pulse Resp BP Pulse Ox O2 Del Method 07/25/23 07:59 36.9 C 68 18 95/60 L 93 Room Air 07/25/23 03:10 36.5 C 67 18 108/62 94 Room Air 07/24/23 23:15 36.9 C 72 18 113/67 93 Room Air PG Care Time/CCT Total # of Minutes Spent Total Time Spent with Patient: Total time spent is greater than 50% in coordination of care (as documented) at patient's floor/unit and/or counseling patient: Coding Level of Care Code 93914 Post Operative Follow-Up Diagnoses Infected prosthetic mesh of abdominal wall T85.79XA
--- NOTE | 2023-07-25 15:01 | Hospitalist Progress Note ---
Date of Service July 25, 2023 Assessment & Plan (1) Infected prosthetic mesh of abdominal wall: Plan: hospitalized 06/26 to 07/12 for acute pancreatitis 2nd to high triglycerides, complicated by coag neg staph bacteremia - source suspected to be a left groin abscess/infected mesh from her prior inguinal hernia repair in 03/2023. was treated with IV antibiotics while hospitalized, then sent home on PO cefadroxil 1gm BID. CRP this hospitalization - 0. Highest CRP during prior hospital stay - 15.3. Presented back to [facility] with severe LLQ/groin pain. CT abdomen and pelvis and pelvis MRI obtained, no abscess only small amount of fluid at the mesh site Mesh was explanted by Dr. Red 07/23 Continue IV vancomycin (or cefadroxil) until 48h post mesh removal. Follow cultures Cont pain control with dilaudid 1.5mg IV q3h prn. Last admission developed hyperalgesia and severe OIC on IV hydromorphone, required fast taper of IV hydromorphone then tapering oxycodone to home dose. Cont gabapentin QID (she had only been taking BID at home). Has started to space in oral oxycodone (2) Coag negative Staphylococcus bacteremia: Plan: discovered during prior hospitalization. resolved. see above #1. cont IV vanco. blood cx 07/21 ngtd at 48h path specimen from mesh removal - P (3) S/P left inguinal hernia repair: Plan: 03/2023 - Dr Red see above (4) Poorly controlled type 2 diabetes mellitus: Plan: cont glargine 10 units BID adjusted aspart - tightened CF:CR, BG running around 200 met with DM educator and insulin plan adjusted last month had been poorly controlled with most recent a1c 16.6% (5) JOYCE (generalized anxiety disorder): Plan: cont home meds (6) Adjustment disorder with mixed anxiety and depressed mood: Plan: cont home meds (7) Constipation due to opioid therapy: Plan: cont senna + miralax had SEVERE Constipation during prior stay requiring go-lytely small BM today (8) Fibromyalgia: Plan: cont home meds this is augmenting her pain from #1 (9) History of pulmonary embolism: Plan: noted lovenox 40mg daily DVT ppx - ordered (10) CAD (coronary artery disease): Plan: Hx cardiac stent cont metoprolol succ echo previous admission wnl - normal LV function; normal LV wall motion; no valvular vegetations (11) GERD with esophagitis: Plan: cont PPI twice daily (12) Hypertension: Plan: cont metoprolol (13) Hypertriglyceridemia: Plan: cont fenofibrate 145mg daily Plan home in 1-2 days pain control is barrier to discharge Admission and Anticipated Discharge Date Admission Date: July 22, 2023 Subjective continues to have severe L lower abdominal pain at surgical site and controlled with mix of IV hydromorphone and oxycodone no CP or SOB Physical Exam Physical Exam: PHYSICAL EXAMINATION Last 24h vital signs reviewed, see documentation in flowsheet General: sitting in bed awake HEENT: Normocephalic, atraumatic, pupils round and equal, sclerae anicteric, no conjunctival injection, moist mucus membranes Lungs: Normal respiratory effort. Clear to auscultation bilaterally. No RRW Heart: Regular rate and rhythm, no murmurs. No JVD Abdomen: Soft, nondistended. Bowel sounds present. TTP LLQ surgical incision well opposed no erythema or drainage Extremities: Warm, dry, well-perfused. No extremity edema. Neuro: AOx4, face symmetric, moves 4 extremities well Psych: Normal affect and behavior Results & Data Results & Data Vital Signs (Past 12 Hours) Vital Signs Temp Pulse Resp BP Pulse Ox O2 Del Method 07/25/23 11:35 37.2 C 64 18 90/55 L 96 Room Air 07/25/23 07:59 36.9 C 68 18 95/60 L 93 Room Air 07/25/23 03:10 36.5 C 67 18 108/62 94 Room Air PG Care Time/CCT Total # of Minutes Spent Total Time Spent with Patient: Total time spent is greater than 50% in coordination of care (as documented) at patient's floor/unit and/or counseling patient: Coding Level of Care Code 12171 SUB INP/OBS CARE 235MIN Diagnoses Infected prosthetic mesh of abdominal wall T85.79XA Coag negative Staphylococcus bacteremia R78.81; B95.7 S/P left inguinal hernia repair Z98.890; Z87.19 Poorly controlled type 2 diabetes mellitus E11.65 JOYCE (generalized anxiety disorder) F41.1 Adjustment disorder with mixed anxiety and depressed mood F43.23 Constipation due to opioid therapy K59.03; T40.2X5A Fibromyalgia M79.7 History of pulmonary embolism Z86.711 CAD (coronary artery disease) I25.10 GERD with esophagitis K21.00 Hypertension I10 Hypertriglyceridemia E78.1
[2023-07-25] MEDS: ENOXAPARIN INJ 40 MG/0.4 ML SYR SQ SCH (16:16)
[2023-07-26 06:18] LABS: Creatinine Clr Calc Pharmacy 66.1 ml/min; Est GFR (African American) 74.4 ml/min; Est GFR (Non-African American) 64.2 ml/min
[2023-07-26] MEDS: VANCOMYCIN LEVEL ONE (06:23)
--- NOTE | 2023-07-26 08:21 | Surgery Progress Note ---
Date of Service July 26, 2023 Assessment & Plan (1) Infected prosthetic mesh of abdominal wall: Plan: pod 2 from mesh explant ok for d/c from my standpoint f/u in 2 weeks post op pain control per pain management. Admission and Anticipated Discharge Date Admission Date: July 22, 2023 Subjective pt seen. very sore at surgical site otherwise doing ok. Physical Exam Physical Exam: surgical site looks good. no drainage or sign of infection. Results & Data Vital Signs (Past 12 Hours) Vital Signs Temp Pulse Resp BP Pulse Ox O2 Del Method 07/26/23 07:27 36.8 C 69 18 131/79 93 Room Air 07/25/23 20:34 36.6 C 75 18 147/79 H 95 Room Air PG Care Time/CCT Total # of Minutes Spent Total Time Spent with Patient: Total time spent is greater than 50% in coordination of care (as documented) at patient's floor/unit and/or counseling patient: Coding Level of Care Code 96107 Post Operative Follow-Up Diagnoses Infected prosthetic mesh of abdominal wall T85.79XA
--- NOTE | 2023-07-26 19:19 | Hospitalist Progress Note ---
Date of Service July 26, 2023 Assessment & Plan (1) Infected prosthetic mesh of abdominal wall: Plan: hospitalized 06/26 to 07/12 for acute pancreatitis 2nd to high triglycerides, complicated by coag neg staph bacteremia - source suspected to be a left groin abscess/infected mesh from her prior inguinal hernia repair in 03/2023. was treated with IV antibiotics while hospitalized, then sent home on PO cefadroxil 1gm BID. CRP this hospitalization - 0. Highest CRP during prior hospital stay - 15.3. Presented back to [facility] with severe LLQ/groin pain. CT abdomen and pelvis and pelvis MRI obtained, no abscess only small amount of fluid at the mesh site Mesh was explanted by Dr. Red 07/23 treated wit IV vancomycin until 48h post mesh removal - last dose 5pm today, unfortunately PIV infiltrated, elevating extremity, IVT paged Cont pain control with dilaudid 1.5mg IV q3h prn. Last admission developed hyperalgesia and severe OIC on IV hydromorphone, required fast taper of IV hydromorphone then tapering oxycodone to home dose. Cont gabapentin QID (she had only been taking BID at home). Has started to space in oral oxycodone (2) Coag negative Staphylococcus bacteremia: Plan: discovered during prior hospitalization. resolved. see above #1. cont IV vanco. blood cx 07/21 ngtd at 48h path specimen from mesh removal - reviewed, unremarkable (3) S/P left inguinal hernia repair: Plan: 03/2023 - Dr Red see above (4) Poorly controlled type 2 diabetes mellitus: Plan: cont glargine 10 units BID adjusted aspart 07/24 - tightened CF:CR, BG running around 200 met with DM educator and insulin plan adjusted last month had been poorly controlled with most recent a1c 16.6% but reports significant improvement after adjustments following discharge -good BG control today (5) JOYCE (generalized anxiety disorder): Plan: cont home meds (6) Adjustment disorder with mixed anxiety and depressed mood: Plan: cont home meds (7) Constipation due to opioid therapy: Plan: cont senna + miralax had SEVERE Constipation during prior stay requiring go-lytely having BMs (8) Fibromyalgia: Plan: cont home meds this is augmenting her pain from #1 (9) History of pulmonary embolism: Plan: noted lovenox 40mg daily DVT ppx - ordered (10) CAD (coronary artery disease): Plan: Hx cardiac stent cont metoprolol succ echo previous admission wnl - normal LV function; normal LV wall motion; no valvular vegetations (11) GERD with esophagitis: Plan: cont PPI twice daily (12) Hypertension: Plan: cont metoprolol (13) Hypertriglyceridemia: Plan: cont fenofibrate 145mg daily Plan home tomorrow? pain control is barrier to discharge Admission and Anticipated Discharge Date Admission Date: July 22, 2023 Subjective Still having severe pain LLQ surgical site and still on IV hydromorphone, however, appears more comfortable and mobile, sitting EOB with lunch today Physical Exam 2 Physical Exam: PHYSICAL EXAMINATION Last 24h vital signs reviewed, see documentation in flowsheet General: sitting on EOB, moving around fairly well HEENT: Normocephalic, atraumatic, pupils round and equal, sclerae anicteric, no conjunctival injection, moist mucus membranes Lungs: Normal respiratory effort. Heart: def Abdomen: Soft, nondistended. LLQ surgical incision well opposed no drainage, minimal inflammation prox to wound does not appear infected Extremities: Warm, dry, well-perfused. No extremity edema. Neuro: AOx4, face symmetric, moves 4 extremities well Psych: Normal affect and behavior Results & Data Results & Data Vital Signs (Past 12 Hours) Vital Signs Temp Pulse Resp BP Pulse Ox O2 Del Method 07/26/23 14:45 37.4 C 66 18 101/61 95 Room Air 07/26/23 07:27 36.8 C 69 18 131/79 93 Room Air Diagnostic Findings 07/25/23 06:59 07/26/23 05:21 PG Care Time/CCT Total # of Minutes Spent Total Time Spent with Patient: Total time spent is greater than 50% in coordination of care (as documented) at patient's floor/unit and/or counseling patient: Coding Level of Care Code 21467 SUB INP/OBS CARE 2/35MIN Diagnoses Infected prosthetic mesh of abdominal wall T85.79XA Coag negative Staphylococcus bacteremia R78.81; B95.7 S/P left inguinal hernia repair Z98.890; Z87.19 Poorly controlled type 2 diabetes mellitus E11.65 JOYCE (generalized anxiety disorder) F41.1 Adjustment disorder with mixed anxiety and depressed mood F43.23 Constipation due to opioid therapy K59.03; T40.2X5A Fibromyalgia M79.7 History of pulmonary embolism Z86.711 CAD (coronary artery disease) I25.10 GERD with esophagitis K21.00 Hypertension I10 Hypertriglyceridemia E78.1
[2023-07-27 08:09] LABS: Creatinine Clr Calc Pharmacy 75.6 ml/min; Est GFR (African American) 87.6 ml/min; Est GFR (Non-African American) 75.6 ml/min
[2023-07-27] MEDS: KETOROLAC TROMETHAMINE 15 MG/ML VIAL IV SCH (08:53)
[2023-07-27] MEDS: HYDROmorphone INJ 1 MG/ML SYRINGE IV PRN (09:29)
--- NOTE | 2023-07-27 10:50 | Surgery Progress Note ---
Date of Service July 27, 2023 Assessment & Plan (1) Infected prosthetic mesh of abdominal wall: Plan: pod 3 from mesh explant regular diet. no bowel complaints incision c/d/i, some discomfort noted to palpation still some incisional pain she is receiving IV dilaudid for, recommend weaning off IV meds and utilizing PO for preparedness for dispo Pain medicine has seen pt and helping w/ recommendations From our standpoint she is stable for discharge to home F/u in office in 10-14 days Admission and Anticipated Discharge Date Admission Date: July 22, 2023 Subjective Patient feeling okay overall. Reports her ipad knocked into her incision and having some pain from that. Otherwise tolerating diet, no nausea/vomiting. Having + bowel function. Physical Exam Physical Exam: awake/alert, no distress Gastrointestinal (Abdomen): Inspection/Auscultation: + abdominal surgical incision (c/d/i, dermabond, no signs of infection); abdomen not distended Percussion/Palpation: + abdomen tender (some vandana incisional discomfort noted to palpation) and abdomen soft Results & Data Vital Signs (Past 12 Hours) Vital Signs Temp Pulse Resp BP Pulse Ox O2 Del Method 07/27/23 07:08 98.6 F 61 16 113/69 93 Room Air PG Care Time/CCT Total # of Minutes Spent Total Time Spent with Patient: Total time spent is greater than 50% in coordination of care (as documented) at patient's floor/unit and/or counseling patient: Coding Level of Care Code 93381 Post Operative Follow-Up Diagnoses Infected prosthetic mesh of abdominal wall T85.79XA
[2023-07-27] MEDS: oxyCODONE HCL IR 5 MG TAB (IMMEDIATE RELEASE) PO PRN ×2 (11:49→19:32)
--- NOTE | 2023-07-27 15:38 | Hospitalist Progress Note ---
Date of Service July 27, 2023 Assessment & Plan (1) Infected prosthetic mesh of abdominal wall: Plan: hospitalized 06/26 to 07/12 for acute pancreatitis 2nd to high triglycerides, complicated by coag neg staph bacteremia - source suspected to be a left groin abscess/infected mesh from her prior inguinal hernia repair in 03/2023. was treated with IV antibiotics while hospitalized, then sent home on PO cefadroxil 1gm BID. CRP this hospitalization - 0. Highest CRP during prior hospital stay - 15.3. Presented back to [facility] with severe LLQ/groin pain. CT abdomen and pelvis and pelvis MRI obtained, no abscess only small amount of fluid at the mesh site Mesh was explanted by Dr. Red 07/23 treated wit IV vancomycin until 48h post mesh removal - last dose 5pm 07/25, unfortunately PIV infiltrated, elevating extremity, IVT paged. LUE swelling much improved since yesterday, minimal erythema no induration or warmth Cont pain control with dilaudid IV decrease to 0.5 mg q3h PRN if oral oxycodone is ineffective. Ordered toradol x 4 doses but she refused. Cont gabapentin QID (she had only been taking BID at home). Planning for home tomorrow (2) Coag negative Staphylococcus bacteremia: Plan: discovered during prior hospitalization. resolved. blood cultures 07/21 finalized negative path specimen from mesh removal - reviewed, unremarkable (3) S/P left inguinal hernia repair: Plan: 03/2023 - Dr Red see above (4) Poorly controlled type 2 diabetes mellitus: Plan: cont glargine 10 units BID adjusted aspart 07/24 - tightened CF:CR, BG running around 200 met with DM educator and insulin plan adjusted last month had been poorly controlled with most recent a1c 16.6% but reports significant improvement after adjustments following discharge -good BG control today (5) JOYCE (generalized anxiety disorder): Plan: cont home meds (6) Adjustment disorder with mixed anxiety and depressed mood: Plan: cont home meds (7) Constipation due to opioid therapy: Plan: cont senna + miralax had SEVERE Constipation during prior stay requiring go-lytely having BMs (8) Fibromyalgia: Plan: cont home meds this is augmenting her pain from #1 (9) History of pulmonary embolism: Plan: noted lovenox 40mg daily DVT ppx - ordered (10) CAD (coronary artery disease): Plan: Hx cardiac stent cont metoprolol succ echo previous admission wnl - normal LV function; normal LV wall motion; no valvular vegetations (11) GERD with esophagitis: Plan: cont PPI twice daily (12) Hypertension: Plan: cont metoprolol (13) Hypertriglyceridemia: Plan: cont fenofibrate 145mg daily Plan home tomorrow pain control is barrier to discharge Admission and Anticipated Discharge Date Admission Date: July 22, 2023 Subjective still lots of LLQ pain at incision but improved moving around better having BMs no N/V Physical Exam Physical Exam: PHYSICAL EXAMINATION Last 24h vital signs reviewed, see documentation in flowsheet General:lying on bed, appears comfortable HEENT: Normocephalic, atraumatic, pupils round and equal, sclerae anicteric, no conjunctival injection, moist mucus membranes Lungs: Normal respiratory effort. CTAB Heart: reg no mrg Abdomen: Soft, nondistended. LLQ surgical incision well opposed no drainage, minimal inflammation prox to wound does not appear infected has improved last 24h Extremities: Warm, dry, well-perfused. No extremity edema. Neuro: AOx4, face symmetric, moves 4 extremities well Psych: Normal affect and behavior Results & Data Results & Data Vital Signs (Past 12 Hours) Vital Signs Temp Pulse Resp BP Pulse Ox O2 Del Method 07/27/23 14:55 36.4 C L 66 18 109/70 98 Room Air 07/27/23 07:08 37.0 C 61 16 113/69 93 Room Air PG Care Time/CCT Total # of Minutes Spent Total Time Spent with Patient: Total time spent is greater than 50% in coordination of care (as documented) at patient's floor/unit and/or counseling patient: Coding Level of Care Code 60623 SUB INP/OBS CARE 2/35MIN Diagnoses Infected prosthetic mesh of abdominal wall T85.79XA Coag negative Staphylococcus bacteremia R78.81; B95.7 S/P left inguinal hernia repair Z98.890; Z87.19 Poorly controlled type 2 diabetes mellitus E11.65 JOYCE (generalized anxiety disorder) F41.1 Adjustment disorder with mixed anxiety and depressed mood F43.23 Constipation due to opioid therapy K59.03; T40.2X5A Fibromyalgia M79.7 History of pulmonary embolism Z86.711 CAD (coronary artery disease) I25.10 GERD with esophagitis K21.00 Hypertension I10 Hypertriglyceridemia E78.1
[2023-07-28] MEDS: oxyCODONE HCL IR 5 MG TAB (IMMEDIATE RELEASE) PO PRN (14:12)
[2023-07-28] MEDS: ACETAMINOPHEN 1,000 MG/100 ML VIAL IV SCH (14:13)
--- NOTE | 2023-07-28 17:03 | Hospitalist Progress Note ---
Date of Service July 28, 2023 Assessment & Plan (1) Infected prosthetic mesh of abdominal wall: Plan: hospitalized 06/26 to 07/12 for acute pancreatitis 2nd to high triglycerides, complicated by coag neg staph bacteremia - source suspected to be a left groin abscess/infected mesh from her prior inguinal hernia repair in 03/2023. was treated with IV antibiotics while hospitalized, then sent home on PO cefadroxil 1gm BID. CRP this hospitalization - 0. Highest CRP during prior hospital stay - 15.3. Presented back to [facility] with severe LLQ/groin pain. CT abdomen and pelvis and pelvis MRI obtained, no abscess only small amount of fluid at the mesh site Mesh was explanted by Dr. Red 07/23 treated with IV vancomycin until 48h post mesh removal - last dose 5pm 07/25 Postop day 4. Does not have indication for IV opioids at this point postop. Has hyperalgesia symptoms as during last admission, at that time remained on high dose IV hydromorphone for almost two weeks with bowel complications until tapered off and required scheduled oxycodone taper at discharge because of prolonged high doses. Discussed with patient and her daughter on speakerphone. She again refused toradol. Will schedule IV acetaminophen (refuses po), naproxen bid if she will take it, stop IV hydromorphone, increase po oxycodone. Trial abdominal binder when up. requested Dr. Red reevaluate the surgical site though appears to be healing appropriately - discussed with him Cont gabapentin QID (she had only been taking BID at home). Planning for home soon (2) Coag negative Staphylococcus bacteremia: Plan: discovered during prior hospitalization. resolved. blood cultures 07/21 finalized negative path specimen from mesh removal - reviewed, unremarkable (3) S/P left inguinal hernia repair: Plan: 03/2023 - Dr Red see above (4) Poorly controlled type 2 diabetes mellitus: Plan: cont glargine 10 units BID adjusted aspart 07/24 - tightened CF:CR, BG running around 200 met with DM educator and insulin plan adjusted last month had been poorly controlled with most recent a1c 16.6% but reports significant improvement after adjustments following discharge -good BG control 07/27 (5) JOYCE (generalized anxiety disorder): Plan: cont home meds (6) Adjustment disorder with mixed anxiety and depressed mood: Plan: cont home meds (7) Constipation due to opioid therapy: Plan: cont senna + miralax had SEVERE Constipation during prior stay requiring go-lytely having BMs (8) Fibromyalgia: Plan: cont home meds this is augmenting her pain from #1 (9) History of pulmonary embolism: Plan: noted lovenox 40mg daily DVT ppx - ordered (10) CAD (coronary artery disease): Plan: Hx cardiac stent cont metoprolol succ echo previous admission wnl - normal LV function; normal LV wall motion; no valvular vegetations (11) GERD with esophagitis: Plan: cont PPI twice daily (12) Hypertension: Plan: cont metoprolol (13) Hypertriglyceridemia: Plan: cont fenofibrate 145mg daily Plan home tomorrow pain control is barrier to discharge Admission and Anticipated Discharge Date Admission Date: July 22, 2023 Subjective severe pain LLQ incision site when up walking is moving bowels regularly Physical Exam Physical Exam: PHYSICAL EXAMINATION Last 24h vital signs reviewed, see documentation in flowsheet General:sitting in bed HEENT: Normocephalic, atraumatic, pupils round and equal, sclerae anicteric, no conjunctival injection, moist mucus membranes Lungs: Normal respiratory effort. Heart: def Abdomen: Soft, nondistended. LLQ surgical incision well opposed no drainage, no erythema, no induration. Painful to light touch in this area Extremities: Warm, dry, well-perfused. No extremity edema. Neuro: AOx4, face symmetric, moves 4 extremities well Psych: Normal affect and behavior Results & Data Results & Data Vital Signs (Past 12 Hours) Vital Signs Temp Pulse Resp BP Pulse Ox O2 Del Method 07/28/23 15:18 36.5 C 66 18 118/72 97 Room Air 07/28/23 07:11 36.4 C L 70 18 148/85 H 95 Room Air PG Care Time/CCT Total # of Minutes Spent Total Time Spent with Patient: Total time spent is greater than 50% in coordination of care (as documented) at patient's floor/unit and/or counseling patient: Coding Level of Care Code 41892 SUB INP/OBS CARE 2/35MIN Diagnoses Infected prosthetic mesh of abdominal wall T85.79XA Coag negative Staphylococcus bacteremia R78.81; B95.7 S/P left inguinal hernia repair Z98.890; Z87.19 Poorly controlled type 2 diabetes mellitus E11.65 JOYCE (generalized anxiety disorder) F41.1 Adjustment disorder with mixed anxiety and depressed mood F43.23 Constipation due to opioid therapy K59.03; T40.2X5A Fibromyalgia M79.7 History of pulmonary embolism Z86.711 CAD (coronary artery disease) I25.10 GERD with esophagitis K21.00 Hypertension I10 Hypertriglyceridemia E78.1
[2023-07-28] MEDS ORDERED: LIDOCAINE 5% OINT 30 GM TUBE EXT PRN (17:08)
[2023-07-28] MEDS: MoRPHine SULFATE IR 15 MG TAB (IMMEDIATE RELEASE) PO PRN (17:27)
[2023-07-28] MEDS: NAPROXEN 250 MG TAB PO SCH (17:30)
--- NOTE | 2023-07-29 06:29 | Surgery Progress Note ---
Date of Service July 29, 2023 Assessment & Plan (1) Infected prosthetic mesh of abdominal wall: Plan: Status post exploration of left inguinal region with explantation of mesh and abdominal wall reconstruction on 07/24/2023 (postop day #5) Surgical incision appears to be healing as expected with no signs of infection Continue diet as tolerated Of note patient's most recent blood cultures from 07/22/2023 are negative for growth Continue pain control measures as directed by the primary service/pain management service Lovenox is in place for DVT prevention Patient to follow-up with Dr. Red in clinic following discharge Admission and Anticipated Discharge Date Admission Date: July 22, 2023 Subjective I visited with the patient at the bedside this morning. She notes that she is ambulating without difficulty. She is tolerating solid food. She denies any fevers, shakes, or chills. She denies any nausea or vomiting. She does note some tenderness in her left groin at her surgical site. I discussed with night shift manager nurse attending to the patient the patient has remained hemodynamically stable throughout her shift and she has not had any fevers. Physical Exam Physical Exam: Patient was seen and examined at bedside with a female nurse grease monkey present Gastrointestinal (Abdomen): Abdomen is soft, nonrigid, nondistended. There is no pain noted with palpation of her abdomen. The patient is groins were examined. There is no swelling or erythema of the right groin. Patient has a incision in her left groin from her surgical procedure. The incision is clean, dry, and intact with no drainage. There is no warmth of the incision or the surrounding area. There is no palpable masses or fluid collection in the area of her surgical procedure. There is no erythema around her incision or the surrounding area. There is some slight tenderness to palpation. Results & Data Vital Signs (Past 12 Hours) Vital Signs Temp Pulse Resp BP Pulse Ox O2 Del Method 07/28/23 19:23 36.6 C 64 17 127/78 95 Room Air PG Care Time/CCT Total # of Minutes Spent Total Time Spent with Patient: Total time spent is greater than 50% in coordination of care (as documented) at patient's floor/unit and/or counseling patient: Coding Level of Care Code 81822 Post Operative Follow-Up Diagnoses Infected prosthetic mesh of abdominal wall T85.79XA
--- NOTE | 2023-07-29 15:04 | Discharge Summary ---
Date of Service July 29, 2023 Admission HPI Per Admitting Provider The patient is a 62-year-old female with a past medical history including acute pancreatitis, hypertriglyceridemia, HHS, poorly controlled diabetes mellitus type 2, chronic diarrhea, migraine, JOYCE, adjustment disorder with mixed anxiety and depressed mood, fibromyalgia, history of PE, diabetes mellitus, CAD, hyperlipidemia, hypertension and IBS. The patient's left groin pain caused admission from 03/25/2023-03/28/2023, with surgery for an incarcerated left inguinal hernia by Dr. Red at 03/26/2023. The patient reports that she has had intermittent pain since that time, and was next admitted to the hospital from 06/26-07/13/2023 for hyperglycemia, pancreatitis secondary to hypertriglyceridemia. She did have 06/27 blood cultures found positive for coag negative staph, was seen by infectious disease on 07/09, and was placed on cefadroxil 1000 mg p.o. twice daily for 3 weeks, with about 1 week of antibiotics left. She did have a IR drainage of the left groin fluid collection, there remained culture negative. She presented to the ED with worsening left groin pain over the past 3 days, and reports that she has a pending appoint with Dr. Red on 07/23 for consideration/planning of removal of infected abdominal wall mesh. From the ED she received Dilaudid 0.5 mg IV x 2, and Zofran 4 mg IV x 1 Principal Diagnosis Possible left groin hernia mesh infection - mesh removed this admission. Discharge Exam PHYSICAL EXAMINATION Last 24h vital signs reviewed, see documentation in flowsheet General:sitting in bed HEENT: Normocephalic, atraumatic, pupils round and equal, sclerae anicteric, no conjunctival injection, moist mucus membranes Lungs: Normal respiratory effort. Heart: def Abdomen: Soft, nondistended. wearing abdominal binder Extremities: Warm, dry, well-perfused. No extremity edema. Neuro: AOx4, face symmetric, moves 4 extremities well Psych: Normal affect and behavior Discharge Data Allergies Allergy/AdvReac Type Severity Reaction Status Date / Time Iodinated Contrast Media Allergy Severe STOP Verified 07/21/23 21:34 BREATHING strawberry Allergy Intermediate Hives Verified 07/21/23 21:34 ketorolac [From Toradol] AdvReac Severe can not Verified 07/21/23 21:34 void tramadol AdvReac Severe can not Verified 07/21/23 21:34 void bupropion [From Wellbutrin] AdvReac Intermediate Hallucinati Verified 07/21/23 21:34 ng divalproex sodium AdvReac Intermediate Vomiting Verified 07/21/23 21:34 [From Depakote] metronidazole AdvReac Intermediate VOMITS Verified 07/21/23 21:34 nitrofurantoin AdvReac Intermediate VOMITS Verified 07/21/23 21:34 pregabalin [From Lyrica] AdvReac Intermediate Hallucinati Verified 07/21/23 21:34 ng ziprasidone [From Geodon] AdvReac Intermediate Vomiting Verified 07/21/23 21:34 Consultations 07/22/23 00:14 ED Decision to Admit Stat 07/22/23 03:10 Consult General Surgery Routine 07/23/23 09:59 Consult Pain Management Routine Procedures Performed Operation Date: 07/24/23 07:15 Actual Procedures p Left Inguinal Exploration, Explant of Mesh, Repair of Hernia(Left) - Pollo Red DO Ordered Studies 07/21/23 21:18 US venous doppler LE LT Stat 07/21/23 21:20 CT abd pelvis wo con Stat 07/22/23 00:46 MRI Abdomen [MR abdomen wo con] Stat MRI Pelvis [MR pelvis wo con] Stat Venous Doppler Study 07/21/23 21:18 Exam(s): US VENOUS LEFT LOWER EXTREMITY EXAM: US Duplex Left Lower Extremity Veins CLINICAL HISTORY: DVT. TECHNIQUE: Real-time duplex ultrasound scan of the left lower extremity veins integrating B-mode two-dimensional vascular structure, Doppler spectral analysis, color flow Doppler imaging and compression. COMPARISON: No relevant prior studies available. FINDINGS: Deep veins: Unremarkable. No DVT in the visualized common femoral, femoral, proximal deep femoral or popliteal veins. The veins demonstrate normal color flow, are normally compressible, with normal phasic flow and/or augmentation response. The interrogated calf veins are patent. Superficial veins: Unremarkable. No thrombus in the saphenofemoral junction. Soft tissues: Subcutaneous edema noted throughout the superficial soft tissues. No popliteal cyst. IMPRESSION: No evidence for deep vein thrombosis involving the left lower extremity. Electronically signed by: Pollo Campbell MD 07/21/23 23:58 PM Abdomen/Pelvis CT 07/21/23 21:20 Exam(s): CT ABDOMEN + PELVIS Without Contrast EXAM: CT Abdomen and Pelvis Without Intravenous Contrast CLINICAL HISTORY: Reason for exam: pelvic pain, recent infection of mesh. TECHNIQUE: Axial computed tomography images of the abdomen and pelvis without intravenous contrast. CTDI is 26.84 mGy and DLP is 1330.61 mGy-cm. Automated exposure control was utilized for the study. A dose lowering technique was utilized adhering to the principles of ALARA. COMPARISON: 07/01/2023. FINDINGS: Lung bases: Small left lower lobe calcified granuloma measuring 5 mm. There is right lower lobe atelectasis. Heart: Unremarkable. No cardiomegaly. No significant pericardial effusion. Normal cardiac size with coronary artery calcifications. ABDOMEN: Liver: Unremarkable. Gallbladder and bile ducts: Status post cholecystectomy. No ductal dilation. Pancreas: Unremarkable. No ductal dilation. Spleen: 2.5 mm splenic granulomata. Otherwise normal spleen. Adrenals: Unremarkable. No mass. Kidneys and ureters: Unremarkable. No obstructing stones. No hydronephrosis. Stomach and bowel: Moderate to abundant fecal debris within the colon, more so to the descending portion. No obstruction. No mucosal thickening. PELVIS: Appendix: Normal appendix. Bladder: Unremarkable. No stones. Reproductive: Nonvisualized uterus suggestive of previous hysterectomy. ABDOMEN and PELVIS: Intraperitoneal space: Unremarkable. No free air. No significant fluid collection. Bones/joints: Multilevel degenerative disease of the spine with mild vacuum phenomenon from L4-S1. Normal alignment with no acute fracture. Mild degenerative disease of bilateral SI joints and hips. Soft tissues: Postoperative changes of ventral hernia repair at the level near the umbilicus with no fluid collection to suggest abscess. There is second area of superficial soft tissue stranding along the left anterior pelvis which may be associated with nonspecific postoperative scarring versus indeterminate inflammatory process. There is no evidence of fluid collection to suggest abscess. Vasculature: Mild discoid disease of aorta. Lymph nodes: Unremarkable. No enlarged lymph nodes. IMPRESSION: 1. Postoperative changes as described, indeterminate which may be indicative of postoperative scarring versus indeterminate inflammatory process, otherwise no distinct abscess seen. 2. Cannot exclude mild constipation. Otherwise no acute appendicitis or bowel obstruction. 3. Status post cholecystectomy with no acute process involving the abdominal viscera. Electronically signed by: Nataliia Ryan MD 07/21/23 23:17 PM Abdomen MRI 07/22/23 00:46 Exam(s): MRI ABDOMEN Without Contrast EXAM: MR Abdomen Without Intravenous Contrast CLINICAL HISTORY: Reason for exam: infection w/ mesh. TECHNIQUE: Multiplanar magnetic resonance images of the abdomen without intravenous contrast. COMPARISON: MRI July 03, 2023. FINDINGS: Lung bases: Unremarkable. No mass. No consolidation. Liver: Unremarkable. Gallbladder and bile ducts: Cholecystectomy. No significant bile duct dilatation. No focal filling defect or focal stricture. Pancreas: Unremarkable. No ductal dilation. Spleen: Unremarkable. No splenomegaly. Adrenals: Unremarkable. No mass. Kidneys and ureters: Unremarkable. No hydronephrosis. Stomach and bowel: Unremarkable. No obstruction. Intraperitoneal space: Unremarkable. No significant fluid collection. Soft tissues: Unremarkable. No edema or abnormal fluid. Vasculature: Unremarkable. No abdominal aortic aneurysm. Lymph nodes: Unremarkable. No enlarged lymph nodes. IMPRESSION: No acute findings. Electronically signed by: Gamal Vila MD 07/22/23 04:53 AM Pelvis MRI 07/22/23 00:46 Exam(s): MRI PELVIS Without Contrast EXAM: MR Pelvis Without Intravenous Contrast CLINICAL HISTORY: Reason for exam: infection w/ mesh. TECHNIQUE: Multiplanar magnetic resonance images of the pelvis without intravenous contrast. COMPARISON: No relevant prior studies available. FINDINGS: Bowel: Unremarkable. No obstruction. No mucosal thickening. Bladder: Unremarkable. No stones. Ovaries: Unremarkable as visualized. No mass or complex cyst. Uterus/cervix: Hysterectomy. Bones/joints: Unremarkable. No acute fracture. No dislocation. Soft tissues: Possible postoperative changes in the left inguinal region. Irregularity and a trace amount of fluid in the subcutaneous fat in the region. No evidence of hernia. Vasculature: Unremarkable. No lower abdominal aortic aneurysm. Lymph nodes: Unremarkable. No enlarged lymph nodes. IMPRESSION: Soft tissue irregularity and trace amount of fluid in the left inguinal region. No other significant abnormalities. Electronically signed by: Gamal Vila MD 07/22/23 05:01 AM Hospital Course (1) Infected prosthetic mesh of abdominal wall: 62 y/o woman hospitalized 06/26 to 07/12 for acute pancreatitis 2nd to high triglycerides, complicated by coag neg staph bacteremia - source suspected to be a left groin abscess/infected mesh from her prior inguinal hernia repair in 03/2023. ID consulted. Was treated with IV vancomycin while hospitalized and completed 7 days, then sent home on PO cefadroxil 1gm BID to continue until after planned mesh explantation 07/23. Returned to ED shortly prior to 07/23 with LLQ/L groin pain. CT abdomen and pelvis and pelvis MRI obtained, no abscess only small amount of fluid at the mesh site. CRP was 0 (peak during previous stay was 15.3). Mesh was explanted by Dr. Red 07/23 treated with IV vancomycin until 48h post mesh removal per previous ID recs - last dose 5pm 07/25 Discharge was delayed because of difficult pain control, which was anticipated given previous hospital course. Pain service consulted. Initially high doses of IV hydromorphone which was tapered off by 07/27. 10 mg po oxycodone was ineffective but pain control was better on MSIR 15 mg. Discharged with po MSIR to taper off over 5 days and resume usual percocet for chronic pain. Already on gabapentin 800 mg qid. Naproxen bid for 5-7d. States intolerant of po acetaminophen. Abdominal binder was helpful. Will follow up with Dr. Red (2) Coag negative Staphylococcus bacteremia: discovered during prior hospitalization. resolved. blood cultures 07/21 finalized negative path specimen from mesh removal - reviewed, unremarkable (3) S/P left inguinal hernia repair: 03/2023 - Dr Red see above (4) Poorly controlled type 2 diabetes mellitus: met with DM educator and insulin plan adjusted last month had been poorly controlled with most recent a1c 16.6% but reports significant improvement after adjustments following discharge -resuming home regimen (5) JOYCE (generalized anxiety disorder): cont home meds (6) Adjustment disorder with mixed anxiety and depressed mood: cont home meds (7) Constipation due to opioid therapy: cont senna + miralax having BMs (8) Fibromyalgia: cont home meds (9) History of pulmonary embolism: was on enoxaparin for DVT ppx this admission (10) CAD (coronary artery disease): Hx cardiac stent cont metoprolol succ echo previous admission wnl - normal LV function; normal LV wall motion; no valvular vegetations she states she is no longer on ASA because it was stopped when she had her previous bout of pancreatitis - suspected to be drug induced -would reconsider re-trial of aspirin or plavix, to prevent progression of CAD (11) GERD with esophagitis: cont PPI twice daily (12) Hypertension: cont metoprolol (13) Hypertriglyceridemia: cont fenofibrate 145mg daily Total Time Total Time Spent Total Time Spent (In Minutes): I personally spent: 35 minutes today on clinical care activities including: reviewing chart notes and vital signs examining and counseling the patient counseling the patient's family writing orders, prescriptions, discharge instruction documentation Discharge Plan Discharge Items Patient Disposition: Home - Self-Care Reason For Visit: INFECTED GROIN MESH, COAG NEG STAPH BACTEREMIA Discharge Diagnosis: removal of inguinal hernia mesh Activity: Per Instructions section Lifting: No more than 10 pounds Bathing Comment: may shower; no soaking in tubs/pools x 2 weeks Exercise/Sports: Wait until after follow-up appointment Driving/Machine Use: no driving while taking narcotics for pain, wait at least 5-7 days Non-emergency contact: Surgeon Call non-emergency contact if: you have any medication questions, your pain is not controlled, you have a fever, your temperature is above 101.5, your wound has increased redness, your wound has increased drainage and your wound pain has increased Follow-up/Referrals: Pollo Red DO [Surgeon] - (Please call to schedule follow up in clinic within 2 weeks ) Khoa Tracy DO [Primary Care Provider] - 08/06/23 1:00 pm Sandra Rosales PA-C [Physician Pest Control Chemical Technician] - 07/31/23 1:30 pm Diet: Carb Consistent or DM2 Addtl Attending Provider Instructions: You have skin glue over your incisions called dermabond. you may shower with this on. It will tend to dissolve and fall off within a couple weeks. Do not pick at the skin glue Addtl Air Boatswain Provider Instructions: Call the surgeon if increased redness or drainage from the wound or fever It is ok to wear the abdominal binder as needed during healing process - you can continue it for as long as it feels helpful I advise taking naproxen (aleve) every 12 hours for three to seven days to help with pain Stay on your bowel regimen Taper off the oral morphine over 5-7 days and resume your usual pain medication after that Schedule: morphine 1 tab every 4 hours as needed for two days then 1 tab every 6 hours as needed for two days then 1/2 tab every 6 hours as needed I sent a prescription for naloxone nasal spray - this is the antidote for opioid overdose. Everyone who takes significant amounts of opioids short or correction should have some of this on hand. It is also available over the counter, though supplies have been limited. Pending Studies at Discharge: No Stand-Alone Forms: My [facility], Pain - Opioid Pain Management, Smoking Cessation Medications and DC Order Prescriptions: New naproxen 250 mg Tablet 250 mg PO BID Qty: 0 0RF morphine 15 mg Tablet 15 mg PO Q4H PRN (Reason: acute postoperative pain) Qty: 26 0RF naloxone 4 mg/actuation spray,non-aerosol 1 spray intranasal .prn Qty: 2 0RF Rx Instructions: one spray as needed for decreased responsiveness/overdose and call 911, may repeat dose in 2-3 minutes if necessary Continued gabapentin 800 mg tablet 800 mg PO QID Qty: 120 5RF metoprolol succinate 25 mg tablet extended release 24 hr 37.5 mg PO HS Qty: 45 5RF ondansetron 4 mg tablet,disintegrating 4 mg translingual Q8H PRN (Reason: Nausea) Qty: 60 2RF trazodone 100 mg tablet 100 mg PO HS Qty: 90 3RF (DME) Dexcom G7 Sensor Device See Rx Instructions .Route Qty: 3 3RF Rx Instructions: Use for Continuous Glucose Monitoring sertraline 50 mg tablet 150 mg PO HS 90 Days Qty: 270 3RF insulin glargine [Lantus Solostar U-100 Insulin] 100 unit/mL (3 mL) insulin pen 15 unit SUBCUT BID loperamide 2 mg capsule 2 mg PO BID PRN (Reason: Diarrhea) pantoprazole 40 mg tablet,delayed release (DR/EC) 40 mg PO BID Qty: 60 5RF docusate sodium 100 mg Capsule 100 mg PO BID Qty: 60 0RF Rx Instructions: OTC sennosides [Senokot] 8.6 mg Tablet 17.2 mg PO QAM Qty: 60 0RF Rx Instructions: OTC diclofenac sodium [Voltaren Arthritis Pain] 1 % gel 4 g EXT QID PRN (Reason: as directed) Rx Instructions: apply to lower back at site of pain. Please give tube from hospital fenofibrate nanocrystallized 145 mg Tablet 145 mg PO QAM Qty: 30 0RF polyethylene glycol 3350 [Miralax] 17 gram Powder In Packet 17 g PO DAILY Qty: 0 0RF Rx Instructions: over the counter, take until you are no longer taking oxycodone (DME) blood-glucose meter [OneTouch Ultra2 Meter] Misc See Rx Instructions .Route Qty: 1 0RF Rx Instructions: check blood sugar 3 times a day (DME) OneTouch Ultra Test Strip See Rx Instructions .Route Qty: 100 1RF Rx Instructions: check blood sugar 3 times a day (DME) lancets [OneTouch Delica Plus Lancet] 33 gauge misc See Rx Instructions .Route Qty: 100 1RF Rx Instructions: check blood sugar 3 times a day insulin lispro [Humalog KwikPen Insulin] 100 unit/mL insulin pen 1 sliding scale dose SUBCUT TIDM Qty: 15 0RF Rx Instructions: New premeal scale - 5 units with meals + CF:25 for BG > 150 Held oxycodone-acetaminophen 7.5-325 mg tablet 1 tab PO Q8H PRN (Reason: Pain) 30 Days Qty: 90 0RF Hold Instructions: Resume on 08/05/23. resume after tapering off oral morphine Discontinued cefadroxil 1 gram tablet 1,000 mg PO BID Qty: 42 0RF Rx Instructions: STARTED 07/13/23 FOR 21 DAYS oxycodone 5 mg Tablet See Rx Instructions .ROUTE .COMPLEX Qty: 40 0RF Rx Instructions: one week taper: 10 mg q6h through 07/15, 5 mg q6h through 07/18 then stop and resume usual percocet Discharge Orders: Discharge Order (Routine); Ordered 07/29/23 Ordered By: Jovanna Lopez/Other Patient Handouts: DVT Post Op Prevention Admission Data Admit Date/Time: 07/22/23 01:03 Attending Provider: Jovanna Holloway Admit Provider: Chapo Carias Primary Care Provider: Khoa Tracy Other Providers: Chapo Carias; Pollo Red; Reta Ellison Other Interventions: Discharge Summary Assessment (RN) Last Done: 07/29/23 11:09 Coding Level of Care Code 27072 INP/OBS DISCH >30 MIN Diagnoses Infected prosthetic mesh of abdominal wall T85.79XA Coag negative Staphylococcus bacteremia R78.81; B95.7 S/P left inguinal hernia repair Z98.890; Z87.19 Poorly controlled type 2 diabetes mellitus E11.65 JOYCE (generalized anxiety disorder) F41.1 Adjustment disorder with mixed anxiety and depressed mood F43.23 Constipation due to opioid therapy K59.03; T40.2X5A Fibromyalgia M79.7 History of pulmonary embolism Z86.711 CAD (coronary artery disease) I25.10 GERD with esophagitis K21.00 Hypertension I10 Hypertriglyceridemia E78.1
== END 2023-07-29 12:37 | disposition home or self-care (01) | DRG 908 ==
LOC: ED 20:18 → SUATTDRO 07-22 01:03 → 3N 07-22 01:03

== ENCOUNTER 2023-08-13 11:44 | Inpatient (IN) ==
--- NOTE | 2023-08-13 12:01 | Emergency Department Note ---
Impression & Plan Left thigh pain, Acute hyperglycemia ED Provider Note NAME: BAKARI NGO AGE: 62 SEX: F : 1960 ARRIVES VIA: Walk-In INFORMANT: Patient, ED PROVIDER(S): Ramone Thurston MD CHIEF COMPLAINT: Leg pain MEDICAL DECISION MAKING: Patient presents due to concern for left leg pain. IV was established and blood work was obtained. Patient was ordered IV fentanyl patient was ordered Toradol but refused. Patient did have plain films completed of the left hip and pelvis and a DVT ultrasound was also obtained. Left hip and pelvis x-ray are unremarkable no fracture dislocation patient's DVT ultrasound is negative. Patient still having pain was ordered additional IV fentanyl. Blood work noted to have a normal white count hemoglobin and platelet count. The patient's kidney function is unremarkable. Blood sugar 259 patient states she has a known history of diabetes. Potassium normal. Patient was still having persistent pain and unable to get up and walk. Given these concerns I did speak with the on-call hospitalist Dr. Montero who stated that Dr. Chacon ago would see the patient. Patient was admitted to the medicine service. Patient may be having symptoms secondary to the continuous femoral nerve given location of pain. The patient does not have any acute back pain. Discussion w/ other healthcare providers: Dr. Montero and Dr. Chacon inpatient medicine service Prior /Outside records reviewed: None Differential diagnosis: Radiculopathy, strain, sprain, DVT, fracture, hematoma, neuropathy, referred pain among others were considered. Diagnostics, as interpreted by me: ECG: Normal sinus rhythm, rate of 65, normal intervals, normal axis no ST elevations Cardiac monitoring: An order was placed for continuous cardiac monitoring. The monitor shows a rate of 62 with sinus rhythm. Patient was placed on pulse oximetry Medical decision rules: None Imaging studies: I informally interpreted the patient's left hip and pelvis x-ray did not show obvious fracture dislocation with formal report to follow. HPI: Patient presents due to concern for leg and thigh pain. Patient states this has been ongoing ever since she had a postoperative infection and repeat procedure completed in March after the patient did have a left lower abdominal hernia repair. Patient states that since then she has had chronic thigh pain. The patient has been taking oxycodone and gabapentin but states that this has not improved her symptoms and seems to have gotten worse. The patient did call the office last week was called today and was referred here for possible nerve entrapment. Patient denies any bowel or bladder incontinence. The patient does complain of pain with movement of the left lower extremity but states that it is primarily located over the anterior thigh. It is worse with movement or palpation. Patient denies any falls or trauma. Patient states that she was to receive a phone call from pain management for follow-up but has yet to receive a phone call. Patient states that she is unable to take oral NSAIDs secondary to GI upset. Patient denies any current back pain. No history of DVT or PE. The patient states she does not have any abdominal pain or nausea vomiting. Patient denies any bowel or bladder incontinence or retention PAST MEDICAL HISTORY: See Below PAST SURGICAL HISTORY: See Below SOCIAL HISTORY: See Below HOME MEDICATIONS: See Below ALLERGIES: See Below VITALS: See Below PHYSICAL EXAMINATION: GENERAL: NAD, non-toxic. EYE EXAM: Normal conjunctiva. PERRL, no anisocoria and EOM's grossly intact w/o pain. OROPHARYNX: Moist mucus membranes, edentulous. NECK: Trachea midline, no stridor. LUNGS: Clear to auscultation. Normal chest wall mechanics. HEART: NSR, no MRG. ABDOMEN: Abdomen soft, non-tender, healed incisional site in the left lower quadrant, no surrounding erythema fluctuance or drainage. No masses, no rebound or guarding. BACK: No CVA TTP. SKIN: No rashes and no bruising. UPPER EXTREMITIES: Upper extremities are grossly normal. LOWER EXTREMITIES: Grossly normal, no edema. Pain noted to the left hip and anterior thigh no obvious asymmetry neurovascular intact distally with soft compartments in the thigh and lower leg. No obvious overlying skin changes bulges or masses. NEURO EXAM: A&O x3, cranial nerves II-XII grossly intact, normal speech, moves all 4 extremities. 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 Opioid dependence Ambulatory dysfunction (Acute) Coag negative Staphylococcus bacteremia Infected prosthetic mesh of abdominal wall Constipation due to opioid therapy S/P left inguinal hernia repair (03/26/23) Open Left Inguinal Hernia Repair with Mesh(Left) - Pollo Red DO Hypertriglyceridemia (Acute) Poorly controlled type 2 diabetes mellitus Chronic diarrhea Cervical radiculopathy Cervicalgia Costochondritis Gastric polyp Migraine Neuropathy Onychocryptosis Unspecified disorder of kidney and ureter JOYCE (generalized anxiety disorder) Adjustment disorder with mixed anxiety and depressed mood Depression Fibromyalgia History of pulmonary embolism roughly 15yrs ago--unknown cause--no blood thinners Diabetes IDDM CAD (coronary artery disease) GERD with esophagitis Hyperlipidemia Hypertension IBS (irritable bowel syndrome) Medical History Acute pancreatitis Hyperosmolar hyperglycemic state (HHS) Hypertriglyceridemia Incarcerated left inguinal hernia Fever Chronic back pain History of chest pain COVID-19 11/08/2022 @ [facility]--head cold symptoms, slight cough--no symptoms now TIA (transient ischemic attack) "more than 15yrs ago"--unknown cause, no deficits--no neurologist Surgical History History of surgery (07/24/23) Left Inguinal Exploration, Explant of Mesh, abdominal wall reconstructions - Pollo Red DO History of fusion of cervical spine normal ROM History of repair of right rotator cuff History of bladder suspension procedure History of laparoscopy lysis of adhesions removal History of esophagogastroduodenoscopy (EGD) History of colonoscopy History of tooth extraction all teeth removed Hx of cholecystectomy H/O tubal ligation H/O: hysterectomy bhupendra bso H/O hernia repair x2 S/P coronary artery stent placement 5yrs ago @ [facility]--1 stent total H/O cardiac catheterization x1 roughly 5 yrs ago @ [facility]--1 stent placed--follows with Dr. Moy Family History Mother Respiratory arrest Coronary heart disease Hypertension Father Cancer Sister Diabetes Multiple sclerosis Other No family history of adverse response to anesthesia Social History Smoking Status: Never smoker packs per day: 1; Second Hand Exposure: No; Do You Dip or Chew Tobacco: No; Hx Alcohol Use: No Hx Substance Use: No Preferred Language: Citizen Of [place] Communication Ability: Effective Visual Impairment: No Limitations Transportation Logistics Internship Required: No Beliefs That Will Affect Care: None Current Living Situation: Spouse and Other Current Living Situation Comment: granddaughter Feels Safe at Home: Yes Assistive Devices: Walker Allergies Allergies Allergy/AdvReac Type Severity Reaction Status Date / Time Iodinated Contrast Media Allergy Severe STOP Verified 08/13/23 14:54 BREATHING strawberry Allergy Intermediate Hives Verified 08/13/23 14:54 ketorolac [From Toradol] AdvReac Severe can not Verified 08/13/23 14:54 void tramadol AdvReac Severe can not Verified 08/13/23 14:54 void bupropion [From Wellbutrin] AdvReac Intermediate Hallucinati Verified 08/13/23 14:54 ng divalproex sodium AdvReac Intermediate Vomiting Verified 08/13/23 14:54 [From Depakote] metronidazole AdvReac Intermediate VOMITS Verified 08/13/23 14:54 nitrofurantoin AdvReac Intermediate VOMITS Verified 08/13/23 14:54 pregabalin [From Lyrica] AdvReac Intermediate Hallucinati Verified 08/13/23 14:54 ng ziprasidone [From Geodon] AdvReac Intermediate Vomiting Verified 08/13/23 14:54 Home Meds Home Medications Medication Instructions Recorded Confirmed pantoprazole 40 mg tablet,delayed 40 mg PO BID 07/31/23 08/13/23 release aspirin 81 mg chewable tablet 81 mg PO HS 08/13/23 08/13/23 insulin glargine 100 unit/mL (3 15 unit subcut BID 08/13/23 08/13/23 mL) subcutaneous pen (Basaglar KwikPen U-100 Insulin) naloxone 4 mg/actuation nasal spray 1 spray intranasal UD 08/13/23 08/13/23 sennosides 8.6 mg tablet (Senokot) 17.2 mg PO QAM PRN Constipation 08/13/23 08/13/23 Previous Rx's Medication Instructions Recorded gabapentin 800 mg tablet 800 mg PO QID #120 tabs 01/25/23 metoprolol succinate 25 mg 37.5 mg (1.5 x 25 mg) PO HS #45 01/25/23 tablet,extended release 24 hr tabs sertraline 50 mg tablet 150 mg (3 x 50 mg) PO HS 90 days 03/29/23 #270 tabs trazodone 100 mg tablet 100 mg PO HS #90 tabs 04/12/23 blood-glucose sensor (Dexcom G7 #3 ea 05/11/23 Sensor device) blood sugar diagnostic (OneTouch #100 ea 07/13/23 Ultra Test strips) blood-glucose meter (OneTouch #1 ea 07/13/23 Ultra2 Meter) fenofibrate nanocrystallized 145 145 mg PO QAM #30 tabs 07/13/23 mg tablet insulin lispro 100 unit/mL 1 sliding scale dose subcut TIDM 07/13/23 subcutaneous pen (Humalog KwikPen #15 mL (U-100) Insulin) lancets 33 gauge (OneTouch Delica #100 ea 07/13/23 Plus Lancet) oxycodone-acetaminophen 7.5 mg-325 1 tab PO Q8H PRN Pain 30 days #90 08/03/23 mg tablet tabs doxepin 10 mg capsule 10 mg PO DAILY #30 caps 08/06/23 glucagon 1 mg solution for 1 mg subcut Q20M PRN hypoglycemia 08/06/23 injection (Glucagon Emergency Kit) #1 ea Results & Data (ED) Vital Signs Vital Signs - 24 hr 08/13/23 11:54 08/13/23 12:19 08/13/23 12:41 Temperature 36.7 C Temperature Source Temporal Artery Scan Pulse Rate 68 70 Pulse Rate [Finger] 66 Pulse Rate from SpO2 Sensor Pulse Rhythm Regular Pulse Strength Normal Respiratory Rate 18 20 16 Respiratory Effort / Characteristics Non-Labored Spontaneous Respiratory Depth Normal Respiratory Pattern Regular Blood Pressure 178/87 H Blood Pressure [Right Arm] 167/95 H Blood Pressure Mean 117 Blood Pressure Mean [Right Arm] 119 Blood Pressure Position Sitting Pulse Oximetry 96 96 98 Oxygen Delivery Method Room Air Room Air Room Air Sepsis Recent Fever Within 48 Hours No Sepsis New/Unexplained Change in Mental Status N/A Sepsis Action Taken by Nursing No Action Required 08/13/23 12:58 08/13/23 13:00 08/13/23 13:02 Temperature Temperature Source Pulse Rate 63 64 64 Pulse Rate [Finger] Pulse Rate from SpO2 Sensor 63 64 Pulse Rhythm Pulse Strength Respiratory Rate 16 15 Respiratory Effort / Characteristics Respiratory Depth Respiratory Pattern Blood Pressure Blood Pressure [Right Arm] Blood Pressure Mean Blood Pressure Mean [Right Arm] Blood Pressure Position Pulse Oximetry 94 96 Oxygen Delivery Method Sepsis Recent Fever Within 48 Hours Sepsis New/Unexplained Change in Mental Status Sepsis Action Taken by Nursing 08/13/23 13:10 08/13/23 13:59 08/13/23 14:00 Temperature Temperature Source Pulse Rate 65 63 Pulse Rate [Finger] 66 Pulse Rate from SpO2 Sensor 63 Pulse Rhythm Pulse Strength Respiratory Rate 18 14 19 Respiratory Effort / Characteristics Non-Labored Spontaneous Respiratory Depth Normal Respiratory Pattern Regular Blood Pressure Blood Pressure [Right Arm] 167/95 H Blood Pressure Mean Blood Pressure Mean [Right Arm] 119 Blood Pressure Position Pulse Oximetry 96 97 Oxygen Delivery Method Room Air Sepsis Recent Fever Within 48 Hours Sepsis New/Unexplained Change in Mental Status Sepsis Action Taken by Nursing 08/13/23 14:00 08/13/23 14:10 08/13/23 14:20 Temperature Temperature Source Pulse Rate 64 64 65 Pulse Rate [Finger] Pulse Rate from SpO2 Sensor 63 63 65 Pulse Rhythm Pulse Strength Respiratory Rate 18 13 15 Respiratory Effort / Characteristics Respiratory Depth Respiratory Pattern Blood Pressure Blood Pressure [Right Arm] Blood Pressure Mean Blood Pressure Mean [Right Arm] Blood Pressure Position Pulse Oximetry 96 96 96 Oxygen Delivery Method Sepsis Recent Fever Within 48 Hours Sepsis New/Unexplained Change in Mental Status Sepsis Action Taken by Nursing 08/13/23 14:30 08/13/23 14:40 08/13/23 14:50 Temperature Temperature Source Pulse Rate 62 68 67 Pulse Rate [Finger] Pulse Rate from SpO2 Sensor 63 68 67 Pulse Rhythm Pulse Strength Respiratory Rate 17 14 12 Respiratory Effort / Characteristics Respiratory Depth Respiratory Pattern Blood Pressure Blood Pressure [Right Arm] Blood Pressure Mean Blood Pressure Mean [Right Arm] Blood Pressure Position Pulse Oximetry 97 94 96 Oxygen Delivery Method Sepsis Recent Fever Within 48 Hours Sepsis New/Unexplained Change in Mental Status Sepsis Action Taken by Nursing 08/13/23 15:00 08/13/23 15:10 08/13/23 15:20 Temperature Temperature Source Pulse Rate 66 65 67 Pulse Rate [Finger] Pulse Rate from SpO2 Sensor 66 65 67 Pulse Rhythm Pulse Strength Respiratory Rate 17 21 13 Respiratory Effort / Characteristics Respiratory Depth Respiratory Pattern Blood Pressure Blood Pressure [Right Arm] Blood Pressure Mean Blood Pressure Mean [Right Arm] Blood Pressure Position Pulse Oximetry 94 95 97 Oxygen Delivery Method Sepsis Recent Fever Within 48 Hours Sepsis New/Unexplained Change in Mental Status Sepsis Action Taken by Nursing 08/13/23 15:21 08/13/23 15:30 08/13/23 15:30 Temperature Temperature Source Pulse Rate 66 67 Pulse Rate [Finger] Pulse Rate from SpO2 Sensor 66 64 Pulse Rhythm Pulse Strength Respiratory Rate 20 19 Respiratory Effort / Characteristics Respiratory Depth Respiratory Pattern Blood Pressure 178/102 H Blood Pressure [Right Arm] Blood Pressure Mean 144 Blood Pressure Mean [Right Arm] Blood Pressure Position Pulse Oximetry 96 96 Oxygen Delivery Method Sepsis Recent Fever Within 48 Hours Sepsis New/Unexplained Change in Mental Status Sepsis Action Taken by Nursing 08/13/23 15:40 Temperature Temperature Source Pulse Rate 65 Pulse Rate [Finger] Pulse Rate from SpO2 Sensor 66 Pulse Rhythm Pulse Strength Respiratory Rate 12 Respiratory Effort / Characteristics Respiratory Depth Respiratory Pattern Blood Pressure Blood Pressure [Right Arm] Blood Pressure Mean Blood Pressure Mean [Right Arm] Blood Pressure Position Pulse Oximetry 95 Oxygen Delivery Method Sepsis Recent Fever Within 48 Hours Sepsis New/Unexplained Change in Mental Status Sepsis Action Taken by [facility] Medications Current Medication List: was personally reviewed by me Laboratory Data Attestation: I reviewed the patient's lab results. 08/13/23 14:05 08/13/23 14:05 Lab Results 08/13/23 08/13/23 Range/Units 12:51 14:05 WBC Cancelled 6.14 RBC Cancelled 3.91 L Hgb Cancelled 12.1 Hct Cancelled 34.4 L MCV Cancelled 88.0 MCH Cancelled 30.9 MCHC Cancelled 35.2 RDW Std Deviation Cancelled 41.2 RDW Coeff of Savanah Cancelled 12.7 Plt Count Cancelled 229 MPV Cancelled 9.7 Immature Gran % (Auto) Cancelled 0.2 Neut % (Auto) Cancelled 62.8 Lymph % (Auto) Cancelled 25.2 [place] % (Auto) Cancelled 5.4 Eos % (Auto) Cancelled 5.4 Baso % (Auto) Cancelled 1.0 Neut # (Auto) Cancelled 3.86 Lymph # (Auto) Cancelled 1.55 [place] # (Auto) Cancelled 0.33 Eos # (Auto) Cancelled 0.33 Baso # (Auto) Cancelled 0.06 Immature Gran # (Auto) Cancelled 0.01 Absolute Nucleated RBC Cancelled Nucleated RBC % (auto) Cancelled Neutrophils % (Manual) Cancelled Band Neutrophils % Cancelled Lymphocytes % (Manual) Cancelled Prolymphocyte % Cancelled Reactive Lymphs % (Man) Cancelled Monocytes % (Manual) Cancelled Eosinophils % (Manual) Cancelled Basophils % (Manual) Cancelled Metamyelocytes % (Man) Cancelled Myelocytes % (Man) Cancelled Promyelocytes % (Man) Cancelled Blast Cells % (Manual) Cancelled Plasma Cell % (Manual) Cancelled Other Cells % Cancelled Nucleated RBC % Cancelled Neutrophils # (Manual) Cancelled Band Neutrophils # Cancelled Total Absolute Neuts Cancelled Lymphocytes # (Manual) Cancelled Prolymphocyte # Cancelled Reactive Lymphs # Cancelled Total Abs Lymphocytes Cancelled Monocytes # (Manual) Cancelled Eosinophils # (Manual) Cancelled Basophils # (Manual) Cancelled Metamyelocytes # (Man) Cancelled Myelocytes # (Manual) Cancelled Promyelocytes # (Man) Cancelled Blast Cells # (Man) Cancelled Plasma Cell # (Manual) Cancelled Other Cells # Cancelled Nucleated RBCs # (Man) Cancelled Hypersegmented Neuts Cancelled Hyposegmented Neuts Cancelled Hypogranular Neuts Cancelled Large Granular Lymphs Cancelled # Lrg Granular Lymphs Cancelled Hairy Cells Cancelled Smudge Cells Cancelled Toxic Granulation Cancelled Toxic Vacuolation Cancelled Dohle Bodies Cancelled Laquita Rods Cancelled Platelet Estimate Cancelled Hypogranular Platelets Cancelled Giant Platelets Cancelled Platelet Satelliting Cancelled RBC Morphology Cancelled Polychromasia Cancelled Hypochromasia Cancelled Poikilocytosis Cancelled Basophilic Stippling Cancelled Anisocytosis Cancelled Microcytosis Cancelled Macrocytosis Cancelled Spherocytes Cancelled Pappenheimer Bodies Cancelled Sickle Cells Cancelled Target Cells Cancelled Tear Drop Cells Cancelled Ovalocytes Cancelled Stomatocytes Cancelled Guerrero-Po[place] Bodies Cancelled Echinocytes Cancelled Acanthocytes (Spur) Cancelled Rouleaux Cancelled RBC Agglutinates Cancelled Schistocytes Cancelled Sezary Cell Cancelled Sodium 134 L (136-145) mmol/L Potassium TNP 4.0 Chloride 100 (98-107) mmol/L Carbon Dioxide 25 (21-32) mmol/L Anion Gap 9 (3-11) BUN 10 (6-23) mg/dl Creatinine 0.77 (0.6-1.2) mg/dl Est Cr Clr Drug Dosing Not Reportable Est GFR ( Amer) 95.9 ml/min Est GFR (Non-Af Amer) 82.8 ml/min BUN/Creatinine Ratio 13.0 (10-20) Glucose 259 H (70-99(Fasting)) mg/dl Calcium 9.8 (8.6-10.3) mg/dl Total Bilirubin 0.6 (0.2-1.0) mg/dl AST TNP 21 ALT 10 (7-52) U/L Alkaline Phosphatase 48 (34-104) U/L Total Protein 7.3 (6.0-8.3) gm/dl Albumin 4.4 (3.4-5.0) gm/dl Globulin 2.9 (2.5-4.0) gm/dl Albumin/Globulin Ratio 1.5 (0.9-2) TSH 0.937 (0.300-4.500) uIu/ml Blood Parasites ID Cancelled Administered Medications Aspirin (Aspirin 81 Mg Ectab) 81 mg PO HS [facility] Stop: 09/12/23 20:59 Last Admin: 08/13/23 20:13 Dose: 81 mg Documented By: LYNN Gabapentin (Gabapentin 800 Mg Tab) 800 mg PO QID [facility] Stop: 09/12/23 19:57 Last Admin: 08/13/23 22:57 Dose: Not Given Documented By: Admin: 08/13/23 22:35 Dose: 800 mg Documented By: SHANE Insulin Aspart (Insulin Aspart Per Unit Charge) 0 units SC ACHS [facility] Stop: 09/12/23 16:29 Last Admin: 08/13/23 22:37 Dose: 11 units Documented By: SHANE Co-signed By: DILEEP Admin: 08/13/23 19:14 Dose: 14 units Documented By: LYNN Co-signed By: SATHISH Insulin Glargine (Lantus Per Unit Charge) 15 units SQ BID [facility] Stop: 09/12/23 20:59 Last Admin: 08/13/23 22:37 Dose: 15 units Documented By: SHANE Co-signed By: DILEEP Metoprolol Succinate (Metoprolol Succ 25mg Ext Rel Tab) 37.5 mg PO HS [facility] Stop: 09/12/23 20:59 Last Admin: 08/13/23 22:33 Dose: 37.5 mg Documented By: SHANE Oxycodone/Acetaminophen (Oxycodone/Apap 7.5/325mg Tab) 1 tab PO Q8H PRN PRN Reason: Pain Stop: 08/27/23 19:57 Last Admin: 08/14/23 05:48 Dose: 1 tab Documented By: Admin: 08/13/23 20:13 Dose: 1 tab Documented By: LYNN Pantoprazole Sodium (Pantoprazole 40 Mg Tab) 40 mg PO BID [facility] Stop: 09/12/23 20:59 Last Admin: 08/13/23 20:13 Dose: 40 mg Documented By: LYNN Sertraline HCl (Sertraline Hcl 50 Mg Tablet) 150 mg PO [facility] Stop: 09/12/23 20:59 Last Admin: 08/13/23 22:34 Dose: 150 mg Documented By: SHANE Trazodone HCl (Trazodone Hcl 100 Mg Tab) 100 mg PO [facility] Stop: 09/12/23 20:59 Last Admin: 08/13/23 22:35 Dose: 100 mg Documented By: SHANE Discontinued Medications Fentanyl Citrate (Fentanyl Citrate Pf 100 Mcg/2 Ml Vial) 75 mcg IV NOW STA Stop: 08/13/23 12:22 Last Admin: 08/13/23 12:33 Dose: 75 mcg Documented By: LYNN Fentanyl Citrate (Fentanyl Citrate Pf 100 Mcg/2 Ml Vial) 100 mcg IV NOW STA Stop: 08/13/23 14:25 Last Admin: 08/13/23 14:28 Dose: 100 mcg Documented By: LYNN Hydromorphone HCl (Hydromorphone Inj 0.5 Mg/0.5 Ml Syr) 0.25 mg IV NOW STA Stop: 08/13/23 22:02 Last Admin: 08/13/23 22:32 Dose: 0.25 mg Documented By: SHANE Ketorolac Tromethamine (Ketorolac Tromethamine 15 Mg/Ml Vial) 10 mg IV ONE STA Stop: 08/13/23 12:14 Last Admin: 08/13/23 12:33 Dose: Not Given Documented By: LYNN Ketorolac Tromethamine (Ketorolac Tromethamine 15 Mg/Ml Vial) 15 mg IV NOW ONE Stop: 08/13/23 15:50 Last Admin: 08/13/23 16:13 Dose: Not Given Documented By: LYNN Methylprednisolone (Methylprednisolone 125 Mg/2 Ml Vial) 125 mg IV NOW STA Stop: 08/13/23 12:20 Last Admin: 08/13/23 12:33 Dose: 125 mg Documented By: LYNN Morphine Sulfate (Morphine Sulfate 2 Mg/Ml Carp) 2 mg IV NOW STA Stop: 08/13/23 16:08 Last Admin: 08/13/23 16:15 Dose: 2 mg Documented By: [facility] Imaging Data Radiologist's Impression: Hip/Pelvis X-Ray 08/13/23 12:30 XR hip LT 2V w pelvis CLINICAL HISTORY: Left hip pain. COMPARISON STUDY: Pelvis MRI 07/22/2023. Pelvis and left hip radiograph 03/24/2023. FINDINGS: No fracture or dislocation within the pelvis or hips. The sacrum is intact. Soft tissues are unremarkable. Mild osteitis pubis, unchanged. Cartilage spaces within the bilateral hips are maintained for age. IMPRESSION: No fracture or dislocation within the pelvis or hips. ACT 112: Negative or not required by law. Electronically signed by: Robin Byrne M.D. 08/13/2023 2:06 PM Venous Doppler Study 08/13/23 12:30 LEFT LOWER EXTREMITY VENOUS DOPPLER HISTORY: Left thigh pain COMPARISON STUDY: None. FINDINGS: There is normal compressibility, flow, and augmentation within the left lower extremity deep venous system. IMPRESSION: No DVT within the left lower extremity. ACT 112: Negative or not required by law. Electronically signed by: Robin Byrne M.D. 08/13/2023 2:08 PM Discharge Plan Visit Data Chief Complaint: Leg Injury/Pain Stated Complaint: NERVE ENTRAPMENT IN LEFT LEG, REFER BY DR VAZQUEZ ED Provider: Ramone Thurston Discharge Problem: Left thigh pain, Acute hyperglycemia Patient Disposition: Admitted As Inpatient Discharge Instructions Interventions: ED Discharge Assessment Last Done: 08/13/23 21:06
[2023-08-13] MEDS: methylPREDNISolone 125 MG/2 ML VIAL IV STA (12:33)
[2023-08-13] MEDS: KETOROLAC TROMETHAMINE 15 MG/ML VIAL IV STA (12:33)
[2023-08-13] MEDS: fentaNYL citrate PF 100 MCG/2 ML VIAL IV STA ×2 (12:33→14:28)
[2023-08-13 14:01] LABS: Alanine Aminotransferase 10 U/L (7-52); Albumin Globulin Ratio 1.5 (0.9-2); Albumin Level 4.4 gm/dl (3.4-5.0); Alkaline Phosphatase 48 U/L (34-104); Anion Gap 9 (3-11); Bilirubin,Total 0.6 mg/dl (0.2-1.0); Blood Urea Nitrogen 10 mg/dl (6-23); Calcium 9.8 mg/dl (8.6-10.3); Carbon Dioxide 25 mmol/L (21-32); Chloride 100 mmol/L (98-107); Est GFR (African American) 95.9 ml/min; Est GFR (Non-African American) 82.8 ml/min; Globulin 2.9 gm/dl (2.5-4.0); Glucose 259 mg/dl (70-99(Fasting)); Sodium 134 mmol/L (136-145); Total Protein 7.3 gm/dl (6.0-8.3)
--- NOTE | 2023-08-13 14:07 | XRay Report ---
XR hip LT 2V w pelvis CLINICAL HISTORY: Left hip pain. COMPARISON STUDY: Pelvis MRI 07/22/2023. Pelvis and left hip radiograph 03/24/2023. FINDINGS: No fracture or dislocation within the pelvis or hips. The sacrum is intact. Soft tissues ar e unremarkable. Mild osteitis pubis, unchanged. Cartilage spaces within the bilateral hips are mainta ined for age. IMPRESSION: No fracture or dislocation within the pelvis or hips. ACT 112: Negative or not required by law. Electronically signed by: Robin Byrne M.D. 08/13/2023 2:06 PM
--- NOTE | 2023-08-13 14:09 | Ultrasound Report ---
LEFT LOWER EXTREMITY VENOUS DOPPLER HISTORY: Left thigh pain COMPARISON STUDY: None. FINDINGS: There is normal compressibility, flow, and augmentation within the left lower extremity tosha p venous system. IMPRESSION: No DVT within the left lower extremity. ACT 112: Negative or not required by law. Electronically signed by: Robin Byrne M.D. 08/13/2023 2:08 PM
[2023-08-13 14:21] LABS: Thyroid Stimulating Hormone 0.937 uIu/ml (0.300-4.500)
[2023-08-13 14:23] LABS: Basophils # (auto) 0.06 K/uL (0.00-0.20); Eosinophils # (auto) 0.33 K/uL (0.00-0.50); Eosinophils % (auto) 5.4 %; Hematocrit (blood only) 34.4 % (37.0-47.0); Hemoglobin 12.1 g/dl (12.0-16.0); Immature Granulocytes # (auto) 0.01 K/uL (0.01-0.20); Immature Granulocytes % (auto) 0.2 %; Lymphocytes # (auto) 1.55 K/uL (1.20-3.40); Lymphocytes % (auto) 25.2 %; Mean Corpuscular Hemoglobin 30.9 pg (25.0-34.0); Mean Corpuscular Hgb Conc 35.2 g/dL (32.0-36.0); Mean Platelet Volume 9.7 fL (9.4-12.4); Monocytes # (auto) 0.33 K/uL (0.11-0.59); Monocytes % (auto) 5.4 %; Neutrophils # (auto) 3.86 K/uL (1.40-6.50); Neutrophils % (auto) 62.8 %; Platelet Count 229 K/uL (130-400); RDW Coefficient of Variation 12.7 % (11.5-14.5); RDW Standard Deviation 41.2 fL (36.4-46.3); Red Blood Count 3.91 M/uL (4.20-5.40); White Blood Count 6.14 K/ul (4.8-10.8)
--- NOTE | 2023-08-13 16:03 | History & Physical Report ---
Date of Service August 13, 2023 Assessment & Plan (1) Thigh pain: Plan: -Patient was asked to come to the hospital by her PCP on account of an intractable left thigh pain which has been going on for about 2 weeks. -According to the patient the pain started soon after she had a removal of her mesh for hernia in July 24, 2023 -She has been on high doses of gabapentin oxycodone without obtaining much relief. -The pain is thought to be from an entrapment of the cutaneous femoral nerve. -MRI of the lumbar spine did not show any evidence of significant spinal stenosis. -Patient will be admitted and pain management were consulted. -Continue gabapentin, oxycodone (2) Diabetes mellitus with neuropathy: Plan: Blood glucose under fair control On insulin at home Continue insulin insulin sliding scale also continue gabapentin 800 mg 4 times daily for neuropathy (3) Adjustment disorder with mixed anxiety and depressed mood: Plan: Continue home medications (4) Opioid dependence: Plan Await evaluation by physical therapy and pain management History of Present Illness Chief Complaint: Intractable left thigh pain Primary Care Provider: Khoa Tracy DO Is a 62-year-old female with a history of poorly controlled type 2 diabetes, fibromyalgia, hypertension, anxiety disorder, who presents to the emergency department today at the behest of her primary care doctor. According to the patient she has been having left thigh pain for the past couple of weeks. She said the pain started just a few days after her hernia surgery repair in June 2023. She said that the pain is sharp, like a lightening bolt and has prevented her from having a normal functional life. She went to see her PCP a week ago and despite being on pain medications the pain has not been under good control. She called her PCP today who did not ask her to come to the hospital for pain management. Of note, patient was discharged from this facility earlier this month July 29, 2023 after she was managed for a left groin abscess, which she stated was a consequence of her left inguinal hernia surgery repair which was done in March 2023, although the mesh was removed in July 23 following infection infection. Today in emergency department, vital signs stable blood pressure 160/90 pulse 65 temperature 98 saturating 95% on room air. However due to intractable pain patient will be admitted to the hospital further management. Allergies Allergy/AdvReac Type Severity Reaction Status Date / Time Iodinated Contrast Media Allergy Severe STOP Verified 08/13/23 14:54 BREATHING strawberry Allergy Intermediate Hives Verified 08/13/23 14:54 ketorolac [From Toradol] AdvReac Severe can not Verified 08/13/23 14:54 void tramadol AdvReac Severe can not Verified 08/13/23 14:54 void bupropion [From Wellbutrin] AdvReac Intermediate Hallucinati Verified 08/13/23 1 4:54 ng divalproex sodium AdvReac Intermediate Vomiting Verified 08/13/23 14:54 [From Depakote] metronidazole AdvReac Intermediate VOMITS Verified 08/13/23 14:54 nitrofurantoin AdvReac Intermediate VOMITS Verified 08/13/23 14:54 pregabalin [From Lyrica] AdvReac Intermediate Hallucinati Verified 08/13/23 14:54 ng ziprasidone [From Geodon] AdvReac Intermediate Vomiting Verified 08/13/23 14:54 Home Medications Medication Instructions Recorded Confirmed Type gabapentin 800 mg tablet 800 mg PO QID #120 tabs 01/25/23 08/13/23 Rx metoprolol succinate 25 mg 37.5 mg (1.5 x 25 mg) PO HS #45 01/25/23 08/13/23 Rx tablet,extended release 24 hr tabs sertraline 50 mg tablet 150 mg (3 x 50 mg) PO HS 90 days 03/29/23 08/13/23 Rx #270 tabs trazodone 100 mg tablet 100 mg PO HS #90 tabs 04/12/23 08/13/23 Rx blood-glucose sensor ([employer] G7 #3 ea 05/11/23 08/06/23 Rx Sensor device) blood sugar diagnostic (Quick KeyTouch #100 ea 07/13/23 08/06/23 Rx Ultra Test strips) blood-glucose meter ([employer]ev[employer] #1 ea 07/13/23 08/06/23 Rx Ultra2 Meter) fenofibrate nanocrystallized 145 145 mg PO QAM #30 tabs 07/13/23 08/13/23 Rx mg tablet insulin lispro 100 unit/mL 1 sliding scale dose subcut TIDM 07/13/23 08/13/23 Rx subcutaneous pen (Humalog KwikPen #15 mL (U-100) Insulin) lancets 33 gauge (Quick KeyTouch Deleve #100 ea 07/13/23 08/06/23 Rx Plus Lancet) pantoprazole 40 mg tablet,delayed 40 mg PO BID 07/31/23 08/13/23 History release oxycodone-acetaminophen 7.5 mg-325 1 tab PO Q8H PRN Pain 30 days #90 08/03/23 08/13/23 Rx mg tablet tabs doxepin 10 mg capsule 10 mg PO DAILY #30 caps 08/06/23 08/13/23 Rx glucagon 1 mg solution for 1 mg subcut Q20M PRN hypoglycemia 08/06/23 08/13/23 Rx injection (Glucagon Emergency Kit) #1 ea aspirin 81 mg chewable tablet 81 mg PO HS 08/13/23 08/13/23 History insulin glargine 100 unit/mL (3 15 unit subcut BID 08/13/23 08/13/23 History mL) subcutaneous pen (Basaglar KwikPen U-100 Insulin) naloxone 4 mg/actuation nasal spray 1 spray intranasal UD 08/13/23 08/13/23 History sennosides 8.6 mg tablet (Senokot) 17.2 mg PO QAM PRN Constipation 08/13/23 08/13/23 History Past Med/Surg History Problem List (Updated 08/13/23 @ 16:00 by Corinne Chacon MD) Thigh pain 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 Opioid dependence Ambulatory dysfunction (Acute) Coag negative Staphylococcus bacteremia Infected prosthetic mesh of abdominal wall Constipation due to opioid therapy S/P left inguinal hernia repair (03/26/23) Open Left Inguinal Hernia Repair with Mesh(Left) - Pollo Red, Hypertriglyceridemia (Acute) Poorly controlled type 2 diabetes mellitus Chronic diarrhea Cervical radiculopathy Cervicalgia Costochondritis Gastric polyp Migraine Neuropathy Onychocryptosis Unspecified disorder of kidney and ureter JOYCE (generalized anxiety disorder) Adjustment disorder with mixed anxiety and depressed mood Depression Fibromyalgia History of pulmonary embolism roughly 15yrs ago--unknown cause--no blood thinners Diabetes IDDM CAD (coronary artery disease) GERD with esophagitis Hyperlipidemia Hypertension IBS (irritable bowel syndrome) Medical History Acute pancreatitis Hyperosmolar hyperglycemic state (HHS) Opioid dependence Coag negative Staphylococcus bacteremia Infected prosthetic mesh of abdominal wall Abdominal pain Hypertriglyceridemia Incarcerated left inguinal hernia Fever Chronic back pain History of chest pain Fibromyalgia History of pulmonary embolism COVID-19 IBS (irritable bowel syndrome) TIA (transient ischemic attack) Hypertension Hyperlipidemia GERD with esophagitis Diabetes Depression CAD (coronary artery disease) Surgical History History of surgery (07/24/23) S/P left inguinal hernia repair (03/26/23) History of fusion of cervical spine History of repair of right rotator cuff History of bladder suspension procedure History of laparoscopy History of esophagogastroduodenoscopy (EGD) History of colonoscopy History of tooth extraction Hx of cholecystectomy H/O tubal ligation H/O: hysterectomy H/O hernia repair S/P coronary artery stent placement H/O cardiac catheterization Family History Mother Respiratory arrest Coronary heart disease Hypertension Father Cancer Sister Diabetes Multiple sclerosis Other No family history of adverse response to anesthesia Social History (Updated 08/06/23 @ 13:24 by Sahra Fernández LPN) Smoking Status: Former smoker packs per day: 1; Second Hand Exposure: No; Do You Dip or Chew Tobacco: No; Hx Alcohol Use: No Hx Substance Use: No Preferred Language: [place]an Communication Ability: Effective Visual Impairment: No Limitations Monkey Trainer Required: No Beliefs That Will Affect Care: None Current Living Situation: Alone Feels Safe at Home: Yes Assistive Devices: None Review of Systems Review of Systems: All systems reviewed are negative, apart from the ones contained in the history. Physical Exam Physical Exam: The patient is awake, alert and oriented 3, well developed and well nourished, normocephalic and atraumatic, lying in bed and in no acute distress. HEENT--PERRL, EOMI, mucous membranes and oropharynx mildly dry Neck--supple. No JVD. No bruits. Thyroid normal, trachea midline, no adenopathy. Heart--normal S1 and S2. No murmurs, rubs or gallops. Lungs--clear bilaterally, no respiratory distress, no accessory muscle use. Abdomen--normal bowel sounds and soft. Extremities--no cyanosis or clubbing. No edema. Dermatologic--normal skin turgor, normal color, no abnormal lymph nodes, no rash. Neurologic--cranial nerves II through XII grossly intact. Rheumatologic--normal range of motion. Psychiatric--normal affect. Results & Data Results & Data Vital Signs (Past 12 Hours) Vital Signs Temp Pulse Pulse Resp BP BP Pulse Ox 08/13/23 15:10 65 21 95 08/13/23 15:00 66 17 94 08/13/23 14:50 67 12 96 08/13/23 14:40 68 14 94 08/13/23 14:30 62 17 97 08/13/23 14:20 65 15 96 08/13/23 14:10 64 13 96 08/13/23 14:00 64 18 96 08/13/23 14:00 66 19 167/95 H 97 08/13/23 13:59 63 14 96 08/13/23 13:10 65 18 08/13/23 13:02 64 08/13/23 13:00 64 15 96 08/13/23 12:58 63 16 94 08/13/23 12:41 70 16 98 08/13/23 12:19 66 20 167/95 H 96 08/13/23 11:54 98.1 F 68 18 178/87 H 96 O2 Del Method 08/13/23 15:10 08/13/23 15:00 08/13/23 14:50 08/13/23 14:40 08/13/23 14:30 08/13/23 14:20 08/13/23 14:10 08/13/23 14:00 08/13/23 14:00 Room Air 08/13/23 13:59 08/13/23 13:10 08/13/23 13:02 08/13/23 13:00 08/13/23 12:58 08/13/23 12:41 Room Air 08/13/23 12:19 Room Air 08/13/23 11:54 Room Air PG Care Time/CCT Total # of Minutes Spent Total Time Spent with Patient: Total time spent is greater than 50% in coordination of care (as documented) at patient's floor/unit and/or counseling patient: Coding Level of Care Code 94509 INT INP/OBS CARE 3/75MIN Diagnoses Thigh pain M79.659 Diabetes mellitus with neuropathy E11.40 Adjustment disorder with mixed anxiety and depressed mood F43.23 Opioid dependence F11.20 Time Spent (min) 35
[2023-08-13] MEDS: KETOROLAC TROMETHAMINE 15 MG/ML VIAL IV ONE (16:13)
[2023-08-13] MEDS: MoRPHine SULFATE 2 MG/ML CARP IV STA (16:15)
[2023-08-13] MEDS: INSULIN ASPART PER UNIT CHARGE SC SCH (19:14)
[2023-08-13] MEDS ORDERED: POLYETHYLENE (MIRALAX) 17 GM PACK PO PRN (19:58)
[2023-08-13] MEDS ORDERED: ONDANSETRON INJ 2 MG/ML 2 ML VIAL IV PRN (19:58)
[2023-08-13] MEDS: oxyCODONE/APAP 7.5/325MG TAB PO PRN (20:13)
[2023-08-13] MEDS: ASPIRIN 81 MG ECTAB PO SCH (20:13)
[2023-08-13] MEDS: PANTOprazole 40 MG TAB PO SCH (20:13)
[2023-08-13] MEDS: HYDROmorphone INJ 0.5 MG/0.5 ML SYR IV STA (22:32)
[2023-08-13] MEDS: METOPROLOL SUCC 25MG EXT REL TAB PO SCH (22:33)
[2023-08-13] MEDS: SERTRALINE HCL 50 MG TABLET PO SCH (22:34)
[2023-08-13] MEDS: GABAPENTIN 800 MG TAB PO SCH (22:35)
[2023-08-13] MEDS: traZODone HCL 100 MG TAB PO SCH (22:35)
[2023-08-13] MEDS: LANTUS PER UNIT CHARGE SQ SCH (22:37)
[2023-08-14] MEDS: DOXEPIN HCL 10 MG CAPSULE PO SCH (08:52)
[2023-08-14] MEDS ORDERED: DEXTROSE 50% 50 ML SYRINGE IV PRN (10:45)
[2023-08-14] MEDS ORDERED: GLUCOSE 40% GEL 15 GM TUBE PO PRN (10:45)
[2023-08-14] MEDS ORDERED: GLUCOSE 10 TAB/TUBE PO PRN (10:45)
[2023-08-14] MEDS ORDERED: GLUCAGON FOR INJ 1 MG VIAL IM PRN (10:45)
[2023-08-14] MEDS ORDERED: CARBOHYDRATES FOR HYPOGLYCEMIA PO PRN (10:45)
--- NOTE | 2023-08-14 10:48 | Hospitalist Progress Note ---
Date of Service August 14, 2023 Assessment & Plan (1) Thigh pain: Plan: -Patient was asked to come to the hospital by her PCP on account of an intractable left thigh pain which has been going on for about 2 weeks. -According to the patient the pain started soon after she had a removal of her mesh for hernia in July 24, 2023 -She has been on high doses of gabapentin oxycodone without obtaining much relief. -The pain is thought to be from an entrapment of the cutaneous femoral nerve. -MRI of the lumbar spine did not show any evidence of significant spinal stenosis. -Patient will be admitted and pain management were consulted. -Continue gabapentin, oxycodone -Says she gets most relief from Morphine. allergic to Tramadol and Toradol (2) Diabetes mellitus with neuropathy: Plan: Blood glucose under fair control On insulin at home Continue insulin insulin sliding scale also continue gabapentin 800 mg 4 times daily for neuropathy (3) Adjustment disorder with mixed anxiety and depressed mood: Plan: Continue home medications (4) Opioid dependence: Plan Await evaluation by physical therapy and pain management Admission and Anticipated Discharge Date Admission Date: August 13, 2023 Subjective patient seen and examined, appears comfortable, although when asked, she said she was in a lot of pains Review of Systems Review of Systems: All systems reviewed are negative, apart from the ones contained in the history. Physical Exam Physical Exam: The patient is awake, alert and oriented 3, well developed and well nourished, normocephalic and atraumatic, lying in bed and in no acute distress. HEENT--PERRL, EOMI, mucous membranes and oropharynx mildly dry Neck--supple. No JVD. No bruits. Thyroid normal, trachea midline, no adenopathy. Heart--normal S1 and S2. No murmurs, rubs or gallops. Lungs--clear bilaterally, no respiratory distress, no accessory muscle use. Abdomen--normal bowel sounds and soft. Extremities--no cyanosis or clubbing. No edema. Dermatologic--normal skin turgor, normal color, no abnormal lymph nodes, no rash. Neurologic--cranial nerves II through XII grossly intact. Rheumatologic--normal range of motion. Psychiatric--normal affect. Results & Data Results & Data Vital Signs (Past 12 Hours) Vital Signs Temp Pulse Resp BP Pulse Ox O2 Del Method 08/14/23 07:35 98.1 F 58 L 18 131/80 94 Room Air PG Care Time/CCT Total # of Minutes Spent Total Time Spent with Patient: Total time spent is greater than 50% in coordination of care (as documented) at patient's floor/unit and/or counseling patient: Coding Level of Care Code 59766 SUB INP/OBS CARE 2/35MIN Diagnoses Thigh pain M79.659 Diabetes mellitus with neuropathy E11.40 Adjustment disorder with mixed anxiety and depressed mood F43.23 Opioid dependence F11.20 Time Spent (min) 35
[2023-08-14] MEDS: TRIAMCINOLONE ACET 40 MG/ML VIAL ONE (11:14)
--- NOTE | 2023-08-14 12:26 | Pain Management Consultation ---
Date of Consultation August 14, 2023 Assessment & Plan (1) Left thigh pain: (2) Opioid dependence: (3) Ambulatory dysfunction: Plan 1. Patient with a 1 week history of left lateral and anterior thigh pain which appears to be most consistent with a lateral femoral cutaneous nerve distribution based on description of location and characteristic of pain. We discussed uncertain etiology of presenting symptoms. Treatment options were reviewed. We discussed pursuing a left lateral femoral cutaneous nerve block for diagnostic/therapeutic purposes at today's visit and she was agreeable. Refer to procedure note below. 2. Consider Medrol Dosepak-will defer to hospitalist service due to her hyperglycemia/diabetes mellitus 3. Will initiate a trial of baclofen 10 mg 3 times daily 4. Further recommendations pending response to above LATERAL FEMORAL CUTANEOUS NERVE BLOCK Diagnosis: Intractable thigh pain, meralgia paresthetica Side/Level injected: Left Surgeon: Priyank Interiano PA-C Medications utilized: 5 cc of 0.5% ropivacaine 1 mL of Kenalog 40 mg/mL Prior to starting, the Patients diagnosis and the procedure were reviewed with the patient in detail. Possible risks and complications including infection, bleeding, damage to surrounding structures and increased pain were discussed. Alternative therapies were also reviewed. Patients questions were answered and they agreed to proceed. Informed consent was obtained. Allergies and medication list was reviewed. The patient was brought to the procedure room and placed in right lateral decubitus position. Immediately prior to starting the procedure, a ``time out was conducted with the staff and the patient where the patient was identified, proposed procedure was verified, consent was reviewed and the proper site for the planned procedure was identified. Monitors used included intermittent blood pressure with automated device, continuous pulse oximetry and level of consciousness. Patient was not given any intravenous sedation and constant verbal contact was maintained throughout the procedure. On examination, no signs of skin breakdown or infection were noted at the injection site. The site was cleansed with Chloraprep. After the application of either chloraprep, duraprep, and/or betadine (depending on patient's allergy status), three minutes time elapsed prior to the start of the procedure to reduce risk of fire. Sterile technique was utilized. Using skeletal landmarks and a 25 gauge 1 inch needle, the left lateral femoral cutaneous nerve was infiltrated with 5 cc of 0.5% Ropivacaine-MPF mixed with 40 mg (1 ml) Kenalog. Aspiration of the needle prior to injection did not demonstrate any blood. Needle was flushed and withdrawn. Adequate hemostasis was noted. A sterile Band Aid was applied at the injection site No complications were noted and the patient's hip region was cleansed and the patient was returned to the recovery area. The patient's vital signs remained stable throughout the procedure. All of her questions were answered. History of Present Illness Reason for Consultation: Intractable left lateral/anterior thigh pain Requesting Physician: Corinne Chacon MD Attending Physician: Corinne Chacon MD History of Present Illness Mrs. Ngo is a 62-year-old white female who was admitted due to a 1 week history of intractable pain involving the left lateral and anterior thigh stopping at the knee. The patient was recently admitted approximately 3 weeks ago with left lower quadrant abdominal pain who underwent a surgical procedure with Dr. Red for removal of infected prosthetic mesh in the left inguinal region completed on 07/24/2023. Patient was discharged to home on 07/29/2023 from the surgical procedure reporting significant improvement in her left lower quadrant abdominal pain. She has had no recurrence of abdominal pain at this time and reports adequate healing of the incisional site. She reported onset of recurrent pain approximate 1 week ago without known injury. The pain originates in the left hip region and travels in the lateral and anterior thigh stopping at level the knee. Describes the pain as aching, burning and episodically electrical shocklike with spasming of the thigh muscle. The electrical shocklike sensations occur a few times per hour lasting for 30 seconds to greater than 1 minute. She denies any precipitating events or alleviating factors. She denies any pain originating in the left lower abdomen or left groin. She denies any axial low back pain or lumbar radicular component to her pain complaint. She denies pain below the level of the left knee or involving the ankle/foot. She denies weaknesses, foot drop or episodes of falling. She denies any similar pain on the right side. The patient has undergone lumbar and abdominal/pelvic MRI within the past 1 month and had hip/pelvic x-ray and venous Doppler study completed upon this admission without abnormal findings. The patient remains on her chronic gabapentin dose of 800 mg 4 times daily without change. Patient is finding Percocet to be moderately effective for a few hours at diminishing the frequency/severity of her pain. Patient has no further constitutional complaints at this time. Plan of care discussed with Dr. Plasencia. Pain Assessment Full Body Front + Back: 2 1. Anterior/lateral thigh from hip to knee Pain scale - at its best (0-10): 3 Pain scale - at its worst (0-10): 8 Allergies Allergy/AdvReac Type Severity Reaction Status Date / Time Iodinated Contrast Media Allergy Severe STOP Verified 08/13/23 14:54 BREATHING strawberry Allergy Intermediate Hives Verified 08/13/23 14:54 ketorolac [From Toradol] AdvReac Severe can not Verified 08/13/23 14:54 void tramadol AdvReac Severe can not Verified 08/13/23 14:54 void bupropion [From Wellbutrin] AdvReac Intermediate Hallucinati Verified 08/13/23 14:54 ng divalproex sodium AdvReac Intermediate Vomiting Verified 08/13/23 14:54 [From Depakote] metronidazole AdvReac Intermediate VOMITS Verified 08/13/23 14:54 nitrofurantoin AdvReac Intermediate VOMITS Verified 08/13/23 14:54 pregabalin [From Lyrica] AdvReac Intermediate Hallucinati Verified 08/13/23 14:54 ng ziprasidone [From Geodon] AdvReac Intermediate Vomiting Verified 08/13/23 14:54 Home Medications Medication Instructions Recorded Confirmed Type gabapentin 800 mg tablet 800 mg PO QID #120 tabs 01/25/23 08/13/23 Rx metoprolol succinate 25 mg 37.5 mg (1.5 x 25 mg) PO HS #45 01/25/23 08/13/23 Rx tablet,extended release 24 hr tabs sertraline 50 mg tablet 150 mg (3 x 50 mg) PO HS 90 days 03/29/23 08/13/23 Rx #270 tabs trazodone 100 mg tablet 100 mg PO HS #90 tabs 04/12/23 08/13/23 Rx blood-glucose sensor (BuildingLayer G7 #3 ea 05/11/23 08/06/23 Rx Sensor device) blood sugar diagnostic (OneTouch #100 ea 07/13/23 08/06/23 Rx Ultra Test strips) blood-glucose meter (OneTouch #1 ea 07/13/23 08/06/23 Rx Ultra2 Meter) fenofibrate nanocrystallized 145 145 mg PO QAM #30 tabs 07/13/23 08/13/23 Rx mg tablet insulin lispro 100 unit/mL 1 sliding scale dose subcut TIDM 07/13/23 08/13/23 Rx subcutaneous pen (Humalog KwikPen #15 mL (U-100) Insulin) lancets 33 gauge (OneTouch Delica #100 ea 07/13/23 08/06/23 Rx Plus Lancet) pantoprazole 40 mg tablet,delayed 40 mg PO BID 07/31/23 08/13/23 History release oxycodone-acetaminophen 7.5 mg-325 1 tab PO Q8H PRN Pain 30 days #90 08/03/23 08/13/23 Rx mg tablet tabs doxepin 10 mg capsule 10 mg PO DAILY #30 caps 08/06/23 08/13/23 Rx glucagon 1 mg solution for 1 mg subcut Q20M PRN hypoglycemia 08/06/23 08/13/23 Rx injection (Glucagon Emergency Kit) #1 ea aspirin 81 mg chewable tablet 81 mg PO HS 08/13/23 08/13/23 History insulin glargine 100 unit/mL (3 15 unit subcut BID 08/13/23 08/13/23 History mL) subcutaneous pen (Basaglar KwikPen U-100 Insulin) naloxone 4 mg/actuation nasal spray 1 spray intranasal UD 08/13/23 08/13/23 History sennosides 8.6 mg tablet (Senokot) 17.2 mg PO QAM PRN Constipation 08/13/23 08/13/23 History Pain History Pain Intensity Pain scale - at its best (0-10): 3 Pain scale - at its worst (0-10): 8 Patient History Medical History Acute pancreatitis Hyperosmolar hyperglycemic state (HHS) Hypertriglyceridemia Incarcerated left inguinal hernia Fever Chronic back pain History of chest pain COVID-19 11/08/2022 @ [facility]--head cold symptoms, slight cough--no symptoms now TIA (transient ischemic attack) "more than 15yrs ago"--unknown cause, no deficits--no neurologist Surgical History History of surgery (07/24/23) Left Inguinal Exploration, Explant of Mesh, abdominal wall reconstructions - Pollo Red DO History of fusion of cervical spine normal ROM History of repair of right rotator cuff History of bladder suspension procedure History of laparoscopy lysis of adhesions removal History of esophagogastroduodenoscopy (EGD) History of colonoscopy History of tooth extraction all teeth removed Hx of cholecystectomy H/O tubal ligation H/O: hysterectomy bhupendra bso H/O hernia repair x2 S/P coronary artery stent placement 5yrs ago @ [facility]--1 stent total H/O cardiac catheterization x1 roughly 5 yrs ago @ [facility]--1 stent placed--follows with Dr. Moy Family History Mother Respiratory arrest Coronary heart disease Hypertension Father Cancer Sister Diabetes Multiple sclerosis Other No family history of adverse response to anesthesia Social History Smoking Status: Never smoker packs per day: 1; Second Hand Exposure: No; Do You Dip or Chew Tobacco: No; Hx Alcohol Use: No Hx Substance Use: No Preferred Language: Portuguese Communication Ability: Effective Visual Impairment: No Limitations Harmonica Maker Required: No Beliefs That Will Affect Care: None Current Living Situation: Spouse and Other Current Living Situation Comment: granddaughter Feels Safe at Home: Yes Assistive Devices: Walker Physical Exam 2 Physical Exam: General: Patient sitting quietly in exam room in no acute distress. Speech and thought process appropriate. Mood and affect appropriate. Cognition intact. Head: Normocephalic and atraumatic. ENT: No evidence of nasal or oral mucosal lesions. Mucous membranes are moist. Eyes: Pupils equal round reactive to light. Neck: Supple without adenopathy and full range of motion. Abdomen: Soft and nondistended. No organomegaly. Bowel sounds active. Well- healed surgical incision in the left lower quadrant was visualized. There is no evidence of edema, erythema or skin breakdown. She is nontender to palpation over the incisional site or in the left lower quadrant. No rebound or guarding. There is no inguinal adenopathy. She is nontender in the inguinal region. Back/spine: Patient able to logroll towards her right side. No focal midline or facet joint tenderness. Nontender over the SI joint. Nontender in the lumbar paravertebral, quadratus more and gluteal musculature. Lower extremities: No visible abnormalities appreciated. Hip appears nontender with internal/external rotation. Patient complains of increased pain with any movement of the left leg in the thigh. She has no involuntary spasticity appreciated. Patient is exquisitely tender over the lateral femoral cutaneous nerve just inferior to the iliac crest reproducing the thigh region pain. She is generally tender over the entire lateral and anterior thigh to palpation with slight hyperalgesia. Neurologic: Cranial nerves grossly intact. Ambulatory function not witnessed. Results (Pain Clinic) Diagnostic Review Radiology Findings: [facility], [place] [phone] XRay Report Patient: BAKARI NGO V Admit Date: 08/13/23 MR#: [id number] Address1: [address] Acct ID:[id number] Address2: Date: 1960 [facility] Zip: [place] [address] Age: 62 Location: ED Sex: F Room/Bed: Att Phy: Diagnosis: NERVE ENTRAPMENT IN LEFT LEG, REFER BY DR TRACY Cheri Phy: Khoa Tracy, Service Date: 08/13/23 Fam Phy: Interpreting Phy: Robin Byrne MDAdmit Phy: Ordering Phy: Ramone Thurston MD cc: ~ XR hip LT 2V w pelvis CLINICAL HISTORY: Left hip pain. COMPARISON STUDY: Pelvis MRI 07/22/2023. Pelvis and left hip radiograph 03/24/2023. FINDINGS: No fracture or dislocation within the pelvis or hips. The sacrum is intact. Soft tissues are unremarkable. Mild osteitis pubis, unchanged. Cartilage spaces within the bilateral hips are maintained for age. IMPRESSION: No fracture or dislocation within the pelvis or hips. ACT 112: Negative or not required by law. Electronically signed by: Robin Byrne M.D. 08/13/2023 2:06 PM Dictated: 08/13/23 140 Transcribed: 08/13/23 140 Other Findings: [facility], [place] [phone] Ultrasound Report Patient: BAKARI NGO V Admit Date: 08/13/23 MR#: [id number] Address1: [address] Acct ID:[id number] Address2: Date: 1960 [facility] Zip: [place] [id number] Age: 62 Location: ED Sex: F Room/Bed: Att Phy: Diagnosis: NERVE ENTRAPMENT IN LEFT LEG, REFER BY DR TAYLOR Alonzo Phy: Khoa Tracy DO Service Date: 08/13/23 [facility] Phy: Interpreting Phy: Robin Byrne MDAdmit Phy: Ordering Phy: Ramone Thurston MD cc: ~ LEFT LOWER EXTREMITY VENOUS DOPPLER HISTORY: Left thigh pain COMPARISON STUDY: None. FINDINGS: There is normal compressibility, flow, and augmentation within the left lower extremity deep venous system. IMPRESSION: No DVT within the left lower extremity. ACT 112: Negative or not required by law. Electronically signed by: Robin Byrne M.D. 08/13/2023 2:08 PM Dictated: 08/13/23 1408 Transcribed: 08/13/23 1408 Previous Records Review Previous Records: personally reviewed by me
[2023-08-14] MEDS: ROPIVACAINE 0.5% 5 MG/ML 30 ML VIAL INFIL ONE (14:17)
[2023-08-14] MEDS: MoRPHine SULFATE 2 MG/ML CARP IV PRN (15:36)
[2023-08-14] MEDS: BACLOFEN 10 MG TAB PO SCH (15:37)
[2023-08-15 07:39] LABS: Hematocrit (blood only) 36.3 % (37.0-47.0); Hemoglobin 12.6 g/dl (12.0-16.0); Mean Corpuscular Hemoglobin 30.9 pg (25.0-34.0); Mean Corpuscular Hgb Conc 34.7 g/dL (32.0-36.0); Mean Platelet Volume 9.9 fL (9.4-12.4); Platelet Count 234 K/uL (130-400); RDW Coefficient of Variation 13.1 % (11.5-14.5); RDW Standard Deviation 42.5 fL (36.4-46.3); Red Blood Count 4.08 M/uL (4.20-5.40); White Blood Count 7.73 K/ul (4.8-10.8)
[2023-08-15 08:08] LABS: BUN Creatinine Ratio 30.4 (10-20); Calcium 9.5 mg/dl (8.6-10.3); Creatinine Clr Calc Pharmacy 67.9 ml/min; Est GFR (African American) 77.3 ml/min; Est GFR (Non-African American) 66.7 ml/min; Potassium 3.8 mmol/L (3.5-5.1)
[2023-08-15] MEDS: MoRPHine SULFATE 2 MG/ML CARP IV PRN (09:44)
--- NOTE | 2023-08-15 11:20 | Pain Management Progress Note ---
Date of Service August 15, 2023 Assessment & Plan (1) Left thigh pain: (2) Opioid dependence: (3) Ambulatory dysfunction: (4) S/P left inguinal hernia repair: Plan 1. Recommend monitoring symptoms and giving this some more time, as it could be a few days, or even up to a couple of weeks until the steroid component of the injection could take effect. 2. Consider application of topical lidocaine patches to the area of concern. 3. Consider Medrol Dosepak -- will defer to hospitalist service due to her hyperglycemia/diabetes mellitus. 4. Continue baclofen 10 mg 3 times daily. 5. Pending the ultimate outcome after a couple of weeks, may give further consideration in the future for an outpatient alternative location nerve block with ultrasound guidance. 6. Continue to follow with general surgery postop visit. Pain management service will sign off at this time. Please schedule to see us in the office if further follow-up with the pain clinic is desired. Admission and Anticipated Discharge Date Admission Date: August 13, 2023 Subjective Today, patient states no improvement in pain/symptoms with the LFCN block procedure done yesterday. She denies even any short-term benefit from the local anesthetic. She continues to state pain in her left anterior and anterior lateral thigh, radiating from the lateral ilioinguinal region and down to the knee. Denies any back pain or right lower extremity pain. States that it is still difficult for her to put any weight on the leg. Physical Exam Physical Exam: General: Patient sitting quietly in exam room in no acute distress. Speech and thought process appropriate. Mood and affect appropriate. Cognition intact. Head: Normocephalic and atraumatic. Abdomen: Soft and nondistended. No organomegaly. Bowel sounds active. Well- healed surgical incision in the left lower quadrant was visualized. There is no evidence of edema, erythema or skin breakdown. Nontender to palpation over the incisional site or in the left lower quadrant. No rebound or guarding. No inguinal adenopathy. Today, + tender to lateral ilioinguinal region. Lower extremities: No visible abnormalities appreciated. + pain to left thigh w/ passive hip internal/external rotation. No involuntary spasticity appreciate d. Today, + exquisite tender over the lateral femoral cutaneous nerve, more so directly over ASIS and medially, reproducing the thigh region pain. + generalalized tenderness over the entire lateral and anterior thigh to palpation with slight hyperalgesia. Neurologic: Cranial nerves grossly intact. Ambulatory function not witnessed.
--- NOTE | 2023-08-15 11:31 | Hospitalist Progress Note ---
Date of Service August 15, 2023 Assessment & Plan (1) Meralgia paraesthetica: Plan: -Patient was asked to come to the hospital by her PCP on account of an intractable left thigh pain which has been going on for about 2 weeks. -According to the patient the pain started soon after she had a removal of her mesh for hernia in July 24, 2023 -She has been on high doses of gabapentin oxycodone without obtaining much relief. --MRI of the lumbar spine did not show any evidence of significant spinal stenosis. -The pain is likely meralgia -Patient underwent lateral femoral cutaneous nerve block yesterday. -However still feels there is no improvement in her pain. -Patient may benefit from outpatient ultrasound-guided nerve block. -Patient states she obtains the most benefit from morphine -Appreciate pain management recommendations while here in the hospital. (2) Diabetes mellitus with neuropathy: Plan: Blood glucose under fair control On insulin at home Continue insulin insulin sliding scale also continue gabapentin 800 mg 4 times daily for neuropathy (3) Adjustment disorder with mixed anxiety and depressed mood: Plan: Continue home medications (4) Opioid dependence: (5) Thigh pain: Plan Hopefully discharge tomorrow Admission and Anticipated Discharge Date Admission Date: August 13, 2023 Subjective Patient states that she did not obtain any relief from the injections yesterday Review of Systems Review of Systems: All systems reviewed are negative, apart from the ones contained in the history. Physical Exam Physical Exam: The patient is awake, alert and oriented 3, well developed and well nourished, normocephalic and atraumatic, lying in bed and in no acute distress. HEENT--PERRL, EOMI, mucous membranes and oropharynx mildly dry Neck--supple. No JVD. No bruits. Thyroid normal, trachea midline, no adenopathy. Heart--normal S1 and S2. No murmurs, rubs or gallops. Lungs--clear bilaterally, no respiratory distress, no accessory muscle use. Abdomen--normal bowel sounds and soft. Extremities--no cyanosis or clubbing. No edema. Dermatologic--normal skin turgor, normal color, no abnormal lymph nodes, no rash. Neurologic--cranial nerves II through XII grossly intact. Rheumatologic--normal range of motion. Psychiatric--normal affect. Results & Data Results & Data Vital Signs (Past 12 Hours) Vital Signs Temp Pulse Resp BP Pulse Ox O2 Del Method 08/15/23 07:48 98.1 F 55 L 18 166/84 H 95 Room Air PG Care Time/CCT Total # of Minutes Spent Total Time Spent with Patient: Total time spent is greater than 50% in coordination of care (as documented) at patient's floor/unit and/or counseling patient: Coding Level of Care Code 76426 SUB INP/OBS CARE 2/35MIN Diagnoses Meralgia paraesthetica G57.10 Diabetes mellitus with neuropathy E11.40 Adjustment disorder with mixed anxiety and depressed mood F43.23 Opioid dependence F11.20 Thigh pain M79.659 Time Spent (min) 35
[2023-08-16] MEDS: LIDOCAINE 5% 1 PATCH TD STA (03:20)
--- NOTE | 2023-08-16 11:05 | Discharge Summary ---
Date of Service August 16, 2023 Admission HPI Per Admitting Provider Is a 62-year-old female with a history of poorly controlled type 2 diabetes, fibromyalgia, hypertension, anxiety disorder, who presents to the emergency department today at the behest of her primary care doctor. According to the patient she has been having left thigh pain for the past couple of weeks. She said the pain started just a few days after her hernia surgery repair in June 2023. She said that the pain is sharp, like a lightening bolt and has prevented her from having a normal functional life. She went to see her PCP a week ago and despite being on pain medications the pain has not been under good control. She called her PCP today who did not ask her to come to the hospital for pain management. Of note, patient was discharged from this facility earlier this month July 29, 2023 after she was managed for a left groin abscess, which she stated was a consequence of her left inguinal hernia surgery repair which was done in March 2023, although the mesh was removed in July 23 following infection infection. Today in emergency department, vital signs stable blood pressure 160/90 pulse 65 temperature 98 saturating 95% on room air. However due to intractable pain patient will be admitted to the hospital further management. Principal Diagnosis meralgia parasthetica Discharge Exam The patient is awake, alert and oriented 3, well developed and well nourished, normocephalic and atraumatic, lying in bed and in no acute distress. HEENT--PERRL, EOMI, mucous membranes and oropharynx mildly dry Neck--supple. No JVD. No bruits. Thyroid normal, trachea midline, no adenopathy. Heart--normal S1 and S2. No murmurs, rubs or gallops. Lungs--clear bilaterally, no respiratory distress, no accessory muscle use. Abdomen--normal bowel sounds and soft. Extremities--no cyanosis or clubbing. No edema. Dermatologic--normal skin turgor, normal color, no abnormal lymph nodes, no rash. Neurologic--cranial nerves II through XII grossly intact. Rheumatologic--normal range of motion. Psychiatric--normal affect. Discharge Data Allergies Allergy/AdvReac Type Severity Reaction Status Date / Time Iodinated Contrast Media Allergy Severe STOP Verified 08/13/23 14:54 BREATHING strawberry Allergy Intermediate Hives Verified 08/13/23 14:54 ketorolac [From Toradol] AdvReac Severe can not Verified 08/13/23 14:54 void tramadol AdvReac Severe can not Verified 08/13/23 14:54 void bupropion [From Wellbutrin] AdvReac Intermediate Hallucinati Verified 08/13/23 14:54 ng divalproex sodium AdvReac Intermediate Vomiting Verified 08/13/23 14:54 [From Depakote] metronidazole AdvReac Intermediate VOMITS Verified 08/13/23 14:54 nitrofurantoin AdvReac Intermediate VOMITS Verified 08/13/23 14:54 pregabalin [From Lyrica] AdvReac Intermediate Hallucinati Verified 08/13/23 14: 54 ng ziprasidone [From Geodon] AdvReac Intermediate Vomiting Verified 08/13/23 14:54 Consultations 08/13/23 15:36 ED Decision to Admit Stat 08/13/23 15:49 Consult Pain Management Routine Ordered Studies 08/13/23 12:30 US venous doppler LE Stat Hospital Course (1) Meralgia paraesthetica: -Patient was asked to come to the hospital by her PCP on account of an intractable left thigh pain which has been going on for about 2 weeks. -According to the patient the pain started soon after she had a removal of her mesh for hernia in July 24, 2023 -She has been on high doses of gabapentin oxycodone without obtaining much relief. --MRI of the lumbar spine did not show any evidence of significant spinal stenosis. -The pain is likely meralgia -Patient underwent lateral femoral cutaneous nerve block yesterday. -However still feels there is no improvement in her pain. -Patient may benefit from outpatient ultrasound-guided nerve block. -Patient states she obtains the most benefit from morphine -Appreciate pain management recommendations while here in the hospital. -D/c home, follow up with pain clinic (2) Diabetes mellitus with neuropathy: Blood glucose under fair control On insulin at home Continue insulin insulin sliding scale also continue gabapentin 800 mg 4 times daily for neuropathy (3) Adjustment disorder with mixed anxiety and depressed mood: Continue home medications (4) Opioid dependence: (5) Thigh pain: Plan Hopefully discharge tomorrow Total Time Total Time Spent Total Time Spent (In Minutes): 35 Discharge Plan Discharge Items Patient Disposition: Home - Self-Care Reason For Visit: INTRACTABLE LEFT THIGH PAIN Discharge Diagnosis: meralgia parasthetica Activity: Resume your previous activity Non-emergency contact: Primary Care Provider Call non-emergency contact if: you have any medication questions Follow-up/Referrals: Khoa Tracy DO [Primary Care Provider] - 08/21/23 3:00 pm Diet: Regular Addtl Attending Provider Instructions: Please make appointment to follow-up with pain clinic and also with your PCP Pending Studies at Discharge: No Stand-Alone Forms: My [facility] DWNLD, Smoking Cessation Medications and DC Order Prescriptions: New morphine 15 mg tablet 15 mg PO Q6H PRN (Reason: pain) Qty: 10 0RF Continued gabapentin 800 mg tablet 800 mg PO QID Qty: 120 5RF metoprolol succinate 25 mg tablet extended release 24 hr 37.5 mg PO HS Qty: 45 5RF trazodone 100 mg tablet 100 mg PO HS Qty: 90 3RF (DME) Dexcom G7 Sensor Device See Rx Instructions .Route Qty: 3 3RF Rx Instructions: Use for Continuous Glucose Monitoring oxycodone-acetaminophen 7.5-325 mg tablet 1 tab PO Q8H PRN (Reason: Pain) 30 Days Qty: 90 0RF Hold Instructions: Resume on 08/05/23. resume after tapering off oral morphine Glucagon Emergency Kit (human) 1 mg recon soln 1 mg subcut Q20M PRN (Reason: hypoglycemia) Qty: 1 5RF Rx Instructions: until target blood sugar attained sertraline 50 mg tablet 150 mg PO HS 90 Days Qty: 270 3RF pantoprazole 40 mg tablet,delayed release (DR/EC) 40 mg PO BID doxepin 10 mg capsule 10 mg PO DAILY Qty: 30 2RF fenofibrate nanocrystallized 145 mg Tablet 145 mg PO QAM Qty: 30 0RF (DME) blood-glucose meter [OneTouch Ultra2 Meter] Misc See Rx Instructions .Route Qty: 1 0RF Rx Instructions: check blood sugar 3 times a day (DME) OneTouch Ultra Test Strip See Rx Instructions .Route Qty: 100 1RF Rx Instructions: check blood sugar 3 times a day (DME) lancets [OneTouch Delica Plus Lancet] 33 gauge misc See Rx Instructions .Route Qty: 100 1RF Rx Instructions: check blood sugar 3 times a day insulin lispro [Humalog KwikPen Insulin] 100 unit/mL insulin pen 1 sliding scale dose SUBCUT TIDM Qty: 15 0RF Rx Instructions: New premeal scale - 5 units with meals + CF:25 for BG > 150 aspirin 81 mg Tablet,Chewable 81 mg PO HS insulin glargine [Basaglar KwikPen U-100 Insulin] 100 unit/mL (3 mL) insulin pen 15 unit SUBCUT BID sennosides [Senokot] 8.6 mg tablet 17.2 mg PO QAM PRN (Reason: Constipation) Rx Instructions: OTC naloxone 4 mg/actuation spray,non-aerosol 1 spray intranasal UD Rx Instructions: one spray as needed for decreased responsiveness/overdose and call 911, may repeat dose in 2-3 minutes if necessary Discharge Orders: Discharge Order (Routine); Ordered 08/16/23 Ordered By: Corinne Chacon Admission Data Admit Date/Time: 08/13/23 15:49 Attending Provider: Corinne Chacon Admit Provider: Corinne Chacon Primary Care Provider: Khoa Tracy Other Providers: Malachi Plasencia; Corinne Chacon Coding Level of Care Code 63387 INP/OBS DISCH >30 MIN Diagnoses Meralgia paraesthetica G57.10 Diabetes mellitus with neuropathy E11.40 Adjustment disorder with mixed anxiety and depressed mood F43.23 Opioid dependence F11.20 Thigh pain M79.659 Time Spent (min) 35
== END 2023-08-16 13:52 | disposition home or self-care (01) | DRG 74 ==
LOC: ED 11:44 → EDINP 15:49 → 3W 21:06
DX: Z98.890 Other specified postprocedural states; E11.65 Type 2 diabetes mellitus with hyperglycemia; K21.9 Gastro-esophageal reflux disease without esophagitis; Z91.041 Radiographic dye allergy status; M79.7 Fibromyalgia; Z98.1 Arthrodesis status; G57.12 Meralgia paresthetica, left lower limb; Z79.4 Long term (current) use of insulin; M79.652 Pain in left thigh; E11.40 Type 2 diabetes mellitus with diabetic neuropathy, unspecified; F11.20 Opioid dependence, uncomplicated; R26.2 Difficulty in walking, not elsewhere classified; I10 Essential (primary) hypertension; Z95.5 Presence of coronary angioplasty implant and graft; I25.10 Atherosclerotic heart disease of native coronary artery without angina pectoris; F43.23 Adjustment disorder with mixed anxiety and depressed mood

== ENCOUNTER 2024-08-07 14:32 | Inpatient (IN) ==
--- NOTE | 2024-08-07 15:09 | Emergency Department Note ---
Impression & Plan Hyperglycemia due to type 2 diabetes mellitus, Hypertension ED Provider Note HISTORY OF PRESENT ILLNESS: Patient is a 63-year-old female presenting with hyperglycemia. Patient is a type II diabetic and reports that she takes Basaglar insulin and Humalog insulin. Reports that she normally checks her blood sugar daily, but did not check it today. She had a follow-up appoint with her primary care provider, and her blood sugar was almost 600. She was referred to the emergency department. Patient reports that she has been having blurred vision for the last few weeks. She denies any chest pain or shortness of breath. Denies any nausea, vomiting or diarrhea. Denies any abdominal pain or recent fevers. Reports that she has had excessive thirst and polyuria. Denies any dysuria or hematuria. She has not taken any insulin today. Her PCP sent her due to concern for HHS versus DKA. ROS: as above PHYSICAL EXAM: Constitutional: Patient appears in no acute distress. HENT: Head: Normocephalic and atraumatic. Eyes: EOMI, PERRL Mouth/Throat: Mucous membranes moist. Neck: Trachea midline. Neck supple. Cardiovascular: RRR, No murmurs, rubs or gallops. Intact distal pulses. Pulmonary/Chest: No respiratory distress. Breath sounds clear and equal bilaterally. No wheezes or rales. Abdominal: Abdomen soft, no tenderness, rebound or guarding. Musculoskeletal: No edema, tenderness or deformity noted. Skin: Warm and dry. No rash, erythema, pallor or cyanosis Psychiatric: Appropriate mood and affect for situation. Neurological: Alert and keenly responsive. CN II-XII grossly intact, moving all extremities equally and fully. MDM: - Vitals signs showed hypertension - History obtained via patient. History as above. - Chronic conditions affecting care: GERD; depression; HTN; HLD; DM-2 - Differential diagnoses include, but are not limited to: HHS; DKA; electrolyte abnormality; CVA; intracranial hemorrhage; poorly controlled diabetes; UTI - Order placed for continuous cardiac monitoring. At this time, monitor showed rate of 62 bpm with normal sinus rhythm, per my interpretation. - External medical records reviewed. Primary care visit note from today was reviewed. Patient has notable poor compliance with her type 2 diabetes treatment regimen. She has known diabetic retinopathy. She had a blood glucose of 562 in the clinic today and was referred to the emergency department due to concern for potential "hyperglycemic emergency." - Laboratory workup interpreted by myself showed normal WBC; slight hyponatremia (Na 131 - likely pseudohyponatremia in the setting of her hyperglycemia); normal anion gap; hyperglycemia (glucose 462); normal lipase; normal AST/ALT - UA negative for negative for infection. However, noted to have significant glucose urea. - VBG negative for acidosis. - CT head wo contrast negative for acute intracranial pathology - Patient was given 1L NS in ER. Given 5 units of short acting NovoLog insulin. However, still notably hyperglycemic in the emergency department. - Patient complained to the nurse about having low back pain. She reportedly is on chronic oxycodone for this 3 times a day. She given 1000 mg of IV Tylenol. Patient also notably hypertensive in the emergency department. Given 5 mg IV hydralazine with some improvement in her systolic blood pressure from 190s to 170s. - Though patient is not currently in DKA, concerned about her understanding of diabetes and the complications. She also seems to lack insight into the importance of her diabetic regimen. As such, will admit to hospitalist service for medication adjustments and for further diabetic education. - Discussion was had with family service caseworker about patient's case and need for admission - Hospitalist consulted for admission - Patient admitted to [facility] hospitalist service for further evaluation and management. ASSESSMENT AND PLAN: Diagnosis: Hyperglycemia due to type 2 diabetes mellitus; hypertension Plan: Admit Past Med/Surg History Problem List (Updated 08/07/24 @ 21:33 by Amalia Grimm MD) Hypertension (Acute) Hyperglycemia due to type 2 diabetes mellitus (Acute) Non compliance w medication regimen Worsening vision Acute hyperglycemia Type 2 diabetes mellitus with hyperglycemia, with long-term current use of insulin Bacteremia S/P appendectomy Candidemia Greater trochanteric bursitis Meralgia paraesthetica 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 Opioid dependence Coag negative Staphylococcus bacteremia Cervical radiculopathy Neuropathy JOYCE (generalized anxiety disorder) Depression Fibromyalgia CAD (coronary artery disease) GERD with esophagitis Hyperlipidemia Hypertension Medical History (Updated 08/07/24 @ 21:33 by Amalia Grimm MD) Left thigh pain Thigh pain Ambulatory dysfunction Constipation due to opioid therapy Hypertriglyceridemia Chronic diarrhea History of pulmonary embolism roughly 15yrs ago--unknown cause--no blood thinners Adjustment disorder with mixed anxiety and depressed mood IBS (irritable bowel syndrome) Unspecified disorder of kidney and ureter Onychocryptosis Migraine Gastric polyp Costochondritis Cervicalgia Acute pancreatitis Hyperosmolar hyperglycemic state (HHS) Hypertriglyceridemia Incarcerated left inguinal hernia Fever Chronic back pain History of chest pain COVID-19 11/08/2022 @ [facility]--head cold symptoms, slight cough--no symptoms now TIA (transient ischemic attack) "more than 15yrs ago"--unknown cause, no deficits--no neurologist Surgical History S/P left inguinal hernia repair (03/26/23) History of surgery (07/24/23) History of fusion of cervical spine History of repair of right rotator cuff History of bladder suspension procedure History of laparoscopy History of esophagogastroduodenoscopy (EGD) History of colonoscopy History of tooth extraction Hx of cholecystectomy H/O tubal ligation H/O: hysterectomy H/O hernia repair S/P coronary artery stent placement H/O cardiac catheterization Family History Mother Respiratory arrest Coronary heart disease Hypertension Father Cancer Sister Diabetes Multiple sclerosis Other No family history of adverse response to anesthesia Social History Smoking Status: Never smoker Tobacco Type: Cigarettes Age Started Using Tobacco: 18; Age Quit Using Tobacco: 36; packs per day: 1; Second Hand Exposure: No; Do You Dip or Chew Tobacco: No; Hx Alcohol Use: No Hx Substance Use: No Preferred Language: Moroccan Communication Ability: Effective Visual Impairment: No Limitations Copy Lathe Tender Required: No Beliefs That Will Affect Care: None Current Living Situation: Spouse and Other Current Living Situation Comment: granddaughter current occupational status: retired 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 [employer] Feels Safe at Home: Yes Diet: regular Dental Care, Regularly: No Seatbelt Use: always Sunscreen Use: No Assistive Devices: Cane and Walker Allergies Allergies Allergy/AdvReac Type Severity Reaction Status Date / Time Iodinated Contrast Media Allergy Severe STOP Verified 08/07/24 21:29 BREATHING strawberry Allergy Intermediate Hives Verified 08/07/24 21:29 ketorolac [From Toradol] AdvReac Severe can not Verified 08/07/24 21:29 void tramadol AdvReac Severe can not Verified 08/07/24 21:29 void bupropion [From Wellbutrin] AdvReac Intermediate Hallucinati Verified 08/07/24 21:29 ng divalproex sodium AdvReac Intermediate Vomiting Verified 08/07/24 21:29 [From Depakote] metronidazole AdvReac Intermediate VOMITS Verified 08/07/24 21:29 nitrofurantoin AdvReac Intermediate VOMITS Verified 08/07/24 21:29 pregabalin [From Lyrica] AdvReac Intermediate Hallucinati Verified 08/07/24 21:29 ng ziprasidone [From Geodon] AdvReac Intermediate Vomiting Verified 08/07/24 21:29 Home Meds Home Medications Medication Instructions Recorded Confirmed aspirin 81 mg chewable tablet 81 mg PO HS 08/13/23 08/07/24 sennosides 8.6 mg tablet (Senokot) 17.2 mg PO QAM PRN Constipation 08/13/23 08/07/24 naloxone 4 mg/actuation nasal spray 1 spray intranasal UD PRN 03/25/24 08/07/24 insulin glargine 100 unit/mL (3 30 unit subcut BID 06/09/24 08/07/24 mL) subcutaneous pen (Basaglar KwikPen U-100 Insulin) insulin lispro 100 unit/mL See Rx Instructions subcut DAILY 06/09/24 08/07/24 subcutaneous pen (Humalog KwikPen (U-100) Insulin) Previous Rx's Medication Instructions Recorded fenofibrate nanocrystallized 145 145 mg PO QAM #30 tabs 07/13/23 mg tablet metoprolol succinate 25 mg 37.5 mg (1.5 x 25 mg) PO HS #45 10/01/23 tablet,extended release 24 hr tabs rosuvastatin 20 mg tablet 20 mg PO DAILY #30 tabs 11/05/23 pantoprazole 40 mg tablet,delayed See Rx Instructions .Route 11/20/23 release .COMPLEX #60 tabs blood-glucose sensor (Dexcom G7 #3 ea 03/25/24 Sensor device) glucagon 1 mg solution for 1 mg subcut Q20M PRN hypoglycemia 03/25/24 injection (Glucagon Emergency Kit) #1 ea ondansetron 4 mg disintegrating 4 mg translingual Q12H PRN Nausea 03/25/24 tablet #30 tabs pen needle, diabetic 31 gauge x #600 ea 03/25/24 3/16" (BD Ultra-Fine Mini Pen Needle) sertraline 50 mg tablet 150 mg (3 x 50 mg) PO HS 90 days 04/17/24 #270 tabs trazodone 100 mg tablet 100 mg PO HS #90 tabs 04/17/24 gabapentin 800 mg tablet 800 mg PO QID #120 tabs 06/30/24 baclofen 10 mg tablet 10 mg PO TID PRN muscle spasm #270 07/04/24 tabs blood sugar diagnostic (OneTouch #400 ea 07/14/24 Verio test strips) blood-glucose meter (OneTouch #1 ea 07/14/24 Verio Flex Meter) lancets 33 gauge (OneTouch Delica #400 ea 07/14/24 Plus Lancet) losartan 50 mg tablet 50 mg PO DAILY #90 tabs 07/14/24 oxycodone-acetaminophen 7.5 mg-325 1 tab PO TID PRN Pain 30 days #90 07/15/24 mg tablet tabs Results & Data (ED) Vital Signs Vital Signs - 24 hr 08/07/24 14:39 08/07/24 15:23 08/07/24 15:24 Temperature 36.7 C Temperature Source Temporal Artery Scan Pulse Rate 67 Pulse Rate [Apical] 63 Pulse Rate from SpO2 Sensor Pulse Rhythm Regular Pulse Strength [Apical] Normal Respiratory Rate 20 18 Respiratory Effort / Characteristics Non-Labored Spontaneous Non-Labored Spontaneous Respiratory Depth Normal Normal Respiratory Pattern Regular Regular Blood Pressure 155/83 H Blood Pressure [Right Arm] 157/91 H Blood Pressure Mean 107 Blood Pressure Mean [Right Arm] 113 Blood Pressure Position Sitting Pulse Oximetry 95 95 95 Oxygen Delivery Method Room Air Room Air Room Air Sepsis Recent Fever Within 48 Hours No Sepsis New/Unexplained Change in Mental Status No Sepsis Action Taken by Nursing No Action Required 08/07/24 16:06 08/07/24 16:09 08/07/24 17:33 Temperature Temperature Source Pulse Rate 62 Pulse Rate [Apical] 62 66 Pulse Rate from SpO2 Sensor Pulse Rhythm Pulse Strength [Apical] Normal Normal Respiratory Rate 18 18 Respiratory Effort / Characteristics Non-Labored Spontaneous Non-Labored Spontaneous Respiratory Depth Normal Normal Respiratory Pattern Regular Regular Blood Pressure Blood Pressure [Right Arm] 182/104 H 196/103 H Blood Pressure Mean Blood Pressure Mean [Right Arm] 130 134 Blood Pressure Position Pulse Oximetry 98 96 Oxygen Delivery Method Room Air Room Air Sepsis Recent Fever Within 48 Hours Sepsis New/Unexplained Change in Mental Status Sepsis Action Taken by Nursing 08/07/24 18:29 08/07/24 19:30 08/07/24 20:05 Temperature Temperature Source Pulse Rate 62 61 Pulse Rate [Apical] 64 Pulse Rate from SpO2 Sensor 61 Pulse Rhythm Pulse Strength [Apical] Normal Respiratory Rate 18 14 Respiratory Effort / Characteristics Non-Labored Spontaneous Respiratory Depth Normal Respiratory Pattern Regular Blood Pressure 180/102 H Blood Pressure [Right Arm] 193/102 H Blood Pressure Mean 128 Blood Pressure Mean [Right Arm] 132 Blood Pressure Position Pulse Oximetry 95 95 Oxygen Delivery Method Room Air Sepsis Recent Fever Within 48 Hours Sepsis New/Unexplained Change in Mental Status Sepsis Action Taken by Nursing 08/07/24 20:33 Temperature Temperature Source Pulse Rate 62 Pulse Rate [Apical] Pulse Rate from SpO2 Sensor 61 Pulse Rhythm Pulse Strength [Apical] Respiratory Rate 16 Respiratory Effort / Characteristics Respiratory Depth Respiratory Pattern Blood Pressure 170/99 H Blood Pressure [Right Arm] Blood Pressure Mean 122 Blood Pressure Mean [Right Arm] Blood Pressure Position Pulse Oximetry 97 Oxygen Delivery Method Sepsis Recent Fever Within 48 Hours Sepsis New/Unexplained Change in Mental Status Sepsis Action Taken by Nursing Laboratory Data 08/07/24 15:14 08/07/24 15:14 Lab Results 08/07/24 08/07/24 08/07/24 Range/Units 14:42 15:14 16:03 WBC 6.83 (4.8-10.8) K/ul RBC 4.58 (4.20-5.40) M/uL Hgb 13.9 (12.0-16.0) g/dl Hct 38.5 (37.0-47.0) % MCV 84.1 (80.0-100.0) fL MCH 30.3 (25.0-34.0) pg MCHC 36.1 H (32.0-36.0) g/dL RDW Std Deviation 37.1 (36.4-46.3) fL RDW Coeff of [place] 12.1 (11.5-14.5) % Plt Count 202 (130-400) K/uL MPV 10.5 (9.4-12.4) fL Immature Gran % (Auto) 0.3 % Neut % (Auto) 62.4 % Lymph % (Auto) 25.9 % [place] % (Auto) 7.8 % Eos % (Auto) 2.9 % Baso % (Auto) 0.7 % Neut # (Auto) 4.26 (1.40-6.50) K/uL Lymph # (Auto) 1.77 (1.20-3.40) K/uL [place] # (Auto) 0.53 (0.11-0.59) K/uL Eos # (Auto) 0.20 (0.00-0.50) K/uL Baso # (Auto) 0.05 (0.00-0.20) K/uL Immature Gran # (Auto) 0.02 (0.01-0.20) K/uL VBG pH 7.38 (7.36-7.41) VBG pCO2 53 H (38-50) mmHg VBG pO2 38 mmHg VBG HCO3 31 mmol/L VBG O2 Saturation 68.3 % VBG Base Excess 4.8 mEq/L Sodium 131 L (136-145) mmol/L Potassium 3.7 (3.5-5.1) mmol/L Chloride 91 L (98-107) mmol/L Carbon Dioxide 30 (21-32) mmol/L Anion Gap 10 (3-11) BUN 12 (6-23) mg/dl Creatinine 0.71 (0.6-1.2) mg/dl Est Cr Clr Drug Dosing 87.3 ml/min eGFR 95.48 BUN/Creatinine Ratio 16.9 (10-20) Glucose 462 H* (70-99(Fasting)) mg/dl POC Glucose 471 H* 389 H* (70-99) mg/dl Calcium 9.7 (8.6-10.3) mg/dl Phosphorus 4.0 (2.5-4.9) mg/dl Magnesium 1.8 (1.7-2.4) mg/dl Total Bilirubin 0.6 (0.2-1.0) mg/dl AST 13 (13-39) U/L ALT 14 (7-52) U/L Alkaline Phosphatase 125 H (34-104) U/L Total Protein 7.8 (6.0-8.3) gm/dl Albumin 4.5 (3.4-5.0) gm/dl Globulin 3.3 (2.5-4.0) gm/dl Albumin/Globulin Ratio 1.4 (0.9-2) Lipase 24 (11-82) U/L Urine Color Urine Appearance (Clear) Urine pH (4.5-7.5) Ur Specific [place] (1.000-1.030) Urine Protein (Negative) Urine Glucose (UA) (Negative) Urine Ketones (Negative) Urine Blood (Negative) Urine Nitrite (Negative) Urine Bilirubin (Negative) Urine Urobilinogen (Negative) Ur Leukocyte Esterase (Negative) Urine Comment 08/07/24 08/07/24 08/07/24 Range/Units 16:53 18:21 Unknown WBC (4.8-10.8) K/ul RBC (4.20-5.40) M/uL Hgb (12.0-16.0) g/dl Hct (37.0-47.0) % MCV (80.0-100.0) fL MCH (25.0-34.0) pg MCHC (32.0-36.0) g/dL RDW Std Deviation (36.4-46.3) fL RDW Coeff of [place] (11.5-14.5) % Plt Count (130-400) K/uL MPV (9.4-12.4) fL Immature Gran % (Auto) % Neut % (Auto) % Lymph % (Auto) % [place] % (Auto) % Eos % (Auto) % Baso % (Auto) % Neut # (Auto) (1.40-6.50) K/uL Lymph # (Auto) (1.20-3.40) K/uL [place] # (Auto) (0.11-0.59) K/uL Eos # (Auto) (0.00-0.50) K/uL Baso # (Auto) (0.00-0.20) K/uL Immature Gran # (Auto) (0.01-0.20) K/uL VBG pH (7.36-7.41) VBG pCO2 (38-50) mmHg VBG pO2 mmHg VBG HCO3 mmol/L VBG O2 Saturation % VBG Base Excess mEq/L Sodium (136-145) mmol/L Potassium (3.5-5.1) mmol/L Chloride (98-107) mmol/L Carbon Dioxide (21-32) mmol/L Anion Gap (3-11) BUN (6-23) mg/dl Creatinine (0.6-1.2) mg/dl Est Cr Clr Drug Dosing ml/min eGFR BUN/Creatinine Ratio (10-20) Glucose (70-99(Fasting)) mg/dl POC Glucose 387 H* 298 H (70-99) mg/dl Calcium (8.6-10.3) mg/dl Phosphorus (2.5-4.9) mg/dl Magnesium (1.7-2.4) mg/dl Total Bilirubin (0.2-1.0) mg/dl AST (13-39) U/L ALT (7-52) U/L Alkaline Phosphatase (34-104) U/L Total Protein (6.0-8.3) gm/dl Albumin (3.4-5.0) gm/dl Globulin (2.5-4.0) gm/dl Albumin/Globulin Ratio (0.9-2) Lipase (11-82) U/L Urine Color Yellow Urine Appearance Clear (Clear) Urine pH 5.5 (4.5-7.5) Ur Specific [place] 1.041 H (1.000-1.030) Urine Protein Negative (Negative) Urine Glucose (UA) 3+ H (Negative) Urine Ketones Negative (Negative) Urine Blood Negative (Negative) Urine Nitrite Negative (Negative) Urine Bilirubin Negative (Negative) Urine Urobilinogen Negative (Negative) Ur Leukocyte Esterase Negative (Negative) Urine Comment Administered Medications Discontinued Medications Hydralazine HCl (Hydralazine Hcl 20 Mg/Ml Vial) 5 mg IV NOW ONE Stop: 08/07/24 19:56 Last Admin: 08/07/24 20:15 Dose: 5 mg Documented By: KANDIS Sodium Chloride (Nss) 1,000 mls @ 999 mls/hr IV .Q1H1M ONE Stop: 08/07/24 15:59 Last Infusion: 08/07/24 16:28 Dose: Infused Documented By: Admin: 08/07/24 15:24 Dose: 999 mls/hr Documented By: NANDA Acetaminophen (Ofirmev) 1,000 mg in 100 mls @ 400 mls/hr IV NOW STA Stop: 08/07/24 18:00 Last Infusion: 08/07/24 18:38 Dose: Infused Documented By: Admin: 08/07/24 18:13 Dose: 400 mls/hr Documented By: NANDA Insulin Aspart (Insulin Aspart Per Unit Charge) 5 units SQ NOW ONE Stop: 08/07/24 16:00 Last Admin: 08/07/24 16:08 Dose: 5 units Documented By: NANDA Co-signed By: GUY Imaging Data Radiologist's Impression: Head CT 08/07/24 16:48 EXAMINATION: Head CT without CLINICAL HISTORY: Blurred vision PRIORS: None TECHNIQUE: Contiguous axial images were obtained through the head without the use of intravenous contrast. Sagittal and coronal reformations are supplied. FINDINGS: Appropriate parenchymal volume is noted. Canas-white differentiation is preserved. No edema or midline shift. No intra-axial or extra-axial hemorrhage. Ventricles are normal in size and configuration. Brainstem and cerebellum have a normal appearance. Calvarium unremarkable. Paranasal sinuses and mastoid air cells are well-pneumatized. Globes are intact. No retrobulbar abnormality. IMPRESSION: No CT evidence of an acute intracranial abnormality. Electronically signed by Najma Bunn 08-07-2024 5:40 PM Discharge Plan Visit Data Chief Complaint: Hyperglycemia Stated Complaint: DOCTOR REFFERED DIABETES # HIGH ED Provider: Amalia Grimm Discharge Problem: Hyperglycemia due to type 2 diabetes mellitus, Hypertension Patient Disposition: Home - Self-Care Condition: Fair Discharge Instructions Interventions: ED Discharge Assessment Last Done: 08/07/24 15:46 Forms Stand Alone Forms: [facility], Important Visit Information Prescriptions Prescriptions: No Action pantoprazole 40 mg tablet,delayed release (DR/EC) See Rx Instructions .ROUTE .COMPLEX Qty: 60 5RF Dose Instruction: TAKE ONE TABLET BY MOUTH TWICE A DAY Rx Instructions: TAKE ONE TABLET BY MOUTH TWICE A DAY ondansetron 4 mg tablet,disintegrating 4 mg translingual Q12H PRN (Reason: Nausea) Qty: 30 0RF sertraline 50 mg tablet 150 mg PO HS 90 Days Qty: 270 3RF trazodone 100 mg tablet 100 mg PO HS Qty: 90 3RF gabapentin 800 mg tablet 800 mg PO QID Qty: 120 5RF baclofen 10 mg tablet 10 mg PO TID PRN (Reason: muscle spasm) Qty: 270 0RF oxycodone-acetaminophen 7.5-325 mg tablet 1 tab PO TID PRN (Reason: Pain) 30 Days Qty: 90 0RF Hold Instructions: Resume on 08/05/23. resume after tapering off oral morphine (DME) Dexcom G7 Sensor Device See Rx Instructions .Route Qty: 3 11RF Rx Instructions: Use for Continuous Glucose Monitoring Glucagon Emergency Kit (human) 1 mg recon soln 1 mg subcut Q20M PRN (Reason: hypoglycemia) Qty: 1 5RF Rx Instructions: until target blood sugar attained (DME) pen needle, diabetic [BD Ultra-Fine Mini Pen Needle] 31 gauge x 3/16" needle See Rx Instructions .Route Qty: 600 3RF Rx Instructions: use a new needle with each injection from insulin pens 6 x daily metoprolol succinate 25 mg tablet extended release 24 hr 37.5 mg PO HS Qty: 45 8RF rosuvastatin 20 mg tablet 20 mg PO DAILY Qty: 30 2RF (DME) blood-glucose meter [OneTouch Verio Flex meter] Misc See Rx Instructions .Route Qty: 1 0RF Rx Instructions: Use to check blood glucose 4 times daily (DME) OneTouch Verio test strips Strip See Rx Instructions .Route Qty: 400 3RF Rx Instructions: Use to check blood glucose 4x daily (DME) lancets [OneTouch Delica Plus Lancet] 33 gauge misc See Rx Instructions .Route Qty: 400 3RF Rx Instructions: check blood sugar 4 times a day losartan 50 mg tablet 50 mg PO DAILY Qty: 90 3RF insulin glargine [Basaglar KwikPen U-100 Insulin] 100 unit/mL (3 mL) insulin pen 30 unit SUBCUT BID insulin lispro [Humalog KwikPen Insulin] 100 unit/mL insulin pen See Rx Instructions SUBCUT DAILY Rx Instructions: takes on a sliding scale subcutaneously daily; Inject with meals per sliding scale; TDD 35 units fenofibrate nanocrystallized 145 mg Tablet 145 mg PO QAM Qty: 30 0RF aspirin 81 mg Tablet,Chewable 81 mg PO HS sennosides [Senokot] 8.6 mg tablet 17.2 mg PO QAM PRN (Reason: Constipation) Rx Instructions: OTC naloxone 4 mg/actuation spray,non-aerosol 1 spray intranasal UD PRN Rx Instructions: one spray as needed for decreased responsiveness/overdose and call 911, may repeat dose in 2-3 minutes if necessary Referrals Referrals: Khoa Tracy, DO [Primary Care Provider] -
[2024-08-07 15:21] LABS: Base Excess VBG 4.8 mEq/L; HCO3 VBG 31 mmol/L; Oxygen Saturation VBG 68.3 %; PCO2 VBG 53 mmHg (38-50); PO2 VBG 38 mmHg; pH VBG 7.38 (7.36-7.41)
[2024-08-07] MEDS: SODIUM CHLORIDE 0.9% 1,000 ML IV ONE (15:24)
[2024-08-07 15:33] LABS: Basophils # (auto) 0.05 K/uL (0.00-0.20); Basophils % (auto) 0.7 %; Eosinophils % (auto) 2.9 %; Hematocrit (blood only) 38.5 % (37.0-47.0); Hemoglobin 13.9 g/dl (12.0-16.0); Immature Granulocytes # (auto) 0.02 K/uL (0.01-0.20); Immature Granulocytes % (auto) 0.3 %; Lymphocytes # (auto) 1.77 K/uL (1.20-3.40); Lymphocytes % (auto) 25.9 %; Mean Corpuscular Hemoglobin 30.3 pg (25.0-34.0); Mean Corpuscular Hgb Conc 36.1 g/dL (32.0-36.0); Mean Corpuscular Volume 84.1 fL (80.0-100.0); Mean Platelet Volume 10.5 fL (9.4-12.4); Monocytes # (auto) 0.53 K/uL (0.11-0.59); Monocytes % (auto) 7.8 %; Neutrophils # (auto) 4.26 K/uL (1.40-6.50); Neutrophils % (auto) 62.4 %; Platelet Count 202 K/uL (130-400); RDW Coefficient of Variation 12.1 % (11.5-14.5); RDW Standard Deviation 37.1 fL (36.4-46.3); Red Blood Count 4.58 M/uL (4.20-5.40); White Blood Count 6.83 K/ul (4.8-10.8)
[2024-08-07 15:56] LABS: Albumin Globulin Ratio 1.4 (0.9-2); Albumin Level 4.5 gm/dl (3.4-5.0); BUN Creatinine Ratio 16.9 (10-20); Bilirubin,Total 0.6 mg/dl (0.2-1.0); Calcium 9.7 mg/dl (8.6-10.3); Creatinine Clr Calc Pharmacy 87.3 ml/min; Globulin 3.3 gm/dl (2.5-4.0); Magnesium 1.8 mg/dl (1.7-2.4); Potassium 3.7 mmol/L (3.5-5.1); Total Protein 7.8 gm/dl (6.0-8.3)
[2024-08-07] MEDS: INSULIN ASPART PER UNIT CHARGE SQ ONE (16:08)
[2024-08-07 16:21] LABS: Appearance Urine Clear (Clear); Bilirubin Urine Negative (Negative); Blood Urine Negative (Negative); Color Urine Yellow; Glucose Urine UA 3+ (Negative); Ketones Urine Negative (Negative); Leukocyte Esterase Urine Negative (Negative); Nitrite Urine Negative (Negative); Protein Urine Negative (Negative); Specific Gravity Urine 1.041 (1.000-1.030); Urobilinogen Urine Negative (Negative); pH Urine 5.5 (4.5-7.5)
--- NOTE | 2024-08-07 17:41 | CT Scan Report ---
EXAMINATION: Head CT without CLINICAL HISTORY: Blurred vision PRIORS: None TECHNIQUE: Contiguous axial images were obtained through the head without the use of intravenous contrast. Sagittal and coronal reformations are supplied. FINDINGS: Appropriate parenchymal volume is noted. Canas-white differentiation is preserved. No edema or midline shift. No intra-axial or extra-axial hemorrhage. Ventricles are normal in size and configuration. Brainstem and cerebellum have a normal appearance. Calvarium unremarkable. Paranasal sinuses and mastoid air cells are well-pneumatized. Globes are intact. No retrobulbar abnormality. IMPRESSION: No CT evidence of an acute intracranial abnormality. Electronically signed by Najma Bunn 08-07-2024 5:40 PM
[2024-08-07] MEDS: ACETAMINOPHEN 1,000 MG/100 ML VIAL IV STA (18:13)
[2024-08-07] MEDS: hydrALAZINE HCL 20 MG/ML VIAL IV ONE (20:15)
--- NOTE | 2024-08-07 21:34 | History & Physical Report ---
Date of Service August 07, 2024 Assessment & Plan (1) Acute hyperglycemia: (2) Hyperglycemia due to type 2 diabetes mellitus: (3) Non compliance w medication regimen: (4) Hypertension: (5) Opioid dependence: (6) Neuropathy: (7) JOYCE (generalized anxiety disorder): (8) Depression: (9) CAD (coronary artery disease): (10) GERD with esophagitis: (11) Hyperlipidemia: Plan 63 year old female with PMHx that includes uncontrolled T2DM, HTN, HLD, CAD, chronic pain with opioid dependence, depression/anxiety, and GERD presenting from PCP office with acute hyperglycemia: #Acute Hyperglycemia // #Uncontrolled T2DM: BSG on arrival 462 - BSG check 2 hours later, after receiving 5 units insulin, was 298. This response seems incongruous with current home insulin regimen of up to 105 units daily of combined basal and SSI meal coverage. Suspect some amount of non-adherence and will therefore start with a conservative insulin regimen: Lantus 8U BID + sliding scale Novolog w/CF30, CR 15 - adjust as appropriate BSG check ACHS Labs and exam do not suggest severe volume contraction, though to correct for likely osmotic diuresis, will start LR @125mL/hr #HTN, #CAD: continue home Losartan, metoprolol, aspirin #HLD:continue home fenofibrate (statin on hold per outpatient note from 07/14) #Chronic pain: continue home baclofen, gabapentin, acetaminophen-oxycodone #Depression, #Anxiety: continue home sertraline #GERD: continue home Protonix Dispo: Admit med-surg FEN/GI: LR @125mL/hr, CC diet VTE ppx: Lovenox Full Code History of Present Illness Primary Care Provider: Khoa Tracy, DO 63 year old female with PMHx that includes uncontrolled T2DM, HTN, HLD, CAD, chronic pain with opioid dependence, depression/anxiety, and GERD presenting from PCP office after finger stick glucose noted to be 562. Patient states that she did not administer any insulin today but reports otherwise being adherent. Current regimen is Lantus 30U BID and sliding scale Novolog coverage with up to 15 units per meal. She states that she checks blood sugar three times daily before meals, reports highest reading in recent past of ~220. Last time she ate was 1000 this morning. +polydipsia and polyuria, otherwise states she feels at her baseline. Denies N/V/D, recent illness, fever/chills. ED Course: BSG on arrival 462. Patient given 5 units of insulin. BSG check 2 hours later 298. S/P 1L NSS Allergies Allergy/AdvReac Type Severity Reaction Status Date / Time Iodinated Contrast Media Allergy Severe STOP Verified 08/07/24 21:29 BREATHING strawberry Allergy Intermediate Hives Verified 08/07/24 21:29 ketorolac [From Toradol] AdvReac Severe can not Verified 08/07/24 21:29 void tramadol AdvReac Severe can not Verified 08/07/24 21:29 void bupropion [From Wellbutrin] AdvReac Intermediate Hallucinati Verified 08/07/24 21:29 ng divalproex sodium AdvReac Intermediate Vomiting Verified 08/07/24 21:29 [From Depakote] metronidazole AdvReac Intermediate VOMITS Verified 08/07/24 21:29 nitrofurantoin AdvReac Intermediate VOMITS Verified 08/07/24 21:29 pregabalin [From Lyrica] AdvReac Intermediate Hallucinati Verified 08/07/24 21:29 ng ziprasidone [From Geodon] AdvReac Intermediate Vomiting Verified 08/07/24 21:29 Home Medications Medication Instructions Recorded Confirmed Type fenofibrate nanocrystallized 145 145 mg PO QAM #30 tabs 07/13/23 08/07/24 Rx mg tablet aspirin 81 mg chewable tablet 81 mg PO HS 08/13/23 08/07/24 History sennosides 8.6 mg tablet (Senokot) 17.2 mg PO QAM PRN Constipation 08/13/23 08/07/24 History metoprolol succinate 25 mg 37.5 mg (1.5 x 25 mg) PO HS #45 10/01/23 08/07/24 Rx tablet,extended release 24 hr tabs rosuvastatin 20 mg tablet 20 mg PO DAILY #30 tabs 11/05/23 08/07/24 Rx blood-glucose sensor (Dexcom G7 #3 ea 03/25/24 08/07/24 Rx Sensor device) glucagon 1 mg solution for 1 mg subcut Q20M PRN hypoglycemia 03/25/24 08/07/24 Rx injection (Glucagon Emergency Kit) #1 ea naloxone 4 mg/actuation nasal spray 1 spray intranasal DIRECTED PRN 03/25/24 08/07/24 History OVERDOSE ondansetron 4 mg disintegrating 4 mg translingual Q12H PRN Nausea 03/25/24 08/07/24 Rx tablet #30 tabs pen needle, diabetic 31 gauge x #600 ea 03/25/24 08/07/24 Rx 3/16" (BD Ultra-Fine Mini Pen Needle) sertraline 50 mg tablet 150 mg (3 x 50 mg) PO HS 90 days 04/17/24 08/07/24 Rx #270 tabs trazodone 100 mg tablet 100 mg PO HS #90 tabs 04/17/24 08/07/24 Rx insulin glargine 100 unit/mL (3 30 unit subcut BID 06/09/24 08/07/24 History mL) subcutaneous pen (Basaglar KwikPen U-100 Insulin) insulin lispro 100 unit/mL See Rx Instructions subcut DAILY 06/09/24 08/07/24 History subcutaneous pen (Humalog KwikPen (U-100) Insulin) gabapentin 800 mg tablet 800 mg PO QID #120 tabs 06/30/24 08/07/24 Rx baclofen 10 mg tablet 10 mg PO TID PRN muscle spasm #270 07/04/24 08/07/24 Rx tabs blood sugar diagnostic (OneTouch #400 ea 07/14/24 08/07/24 Rx Verio test strips) blood-glucose meter (OneTouch #1 ea 07/14/24 08/07/24 Rx Verio Flex Meter) lancets 33 gauge (OneTouch Delica #400 ea 07/14/24 08/07/24 Rx Plus Lancet) losartan 50 mg tablet 50 mg PO DAILY #90 tabs 07/14/24 08/07/24 Rx oxycodone-acetaminophen 7.5 mg-325 1 tab PO TID PRN Pain 30 days #90 07/15/24 08/07/24 Rx mg tablet tabs pantoprazole 40 mg tablet,delayed 40 mg PO BID 08/07/24 08/07/24 History release Past Med/Surg History Problem List (Updated 08/07/24 @ 21:33 by Amalia Grimm MD) Hypertension (Acute) Hyperglycemia due to type 2 diabetes mellitus (Acute) Non compliance w medication regimen Worsening vision Acute hyperglycemia Type 2 diabetes mellitus with hyperglycemia, with long-term current use of insulin Bacteremia S/P appendectomy Candidemia Greater trochanteric bursitis Meralgia paraesthetica 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 Opioid dependence Coag negative Staphylococcus bacteremia Cervical radiculopathy Neuropathy JOYCE (generalized anxiety disorder) Depression Fibromyalgia CAD (coronary artery disease) GERD with esophagitis Hyperlipidemia Hypertension Medical History (Updated 08/07/24 @ 21:33 by Amalia Grimm MD) Left thigh pain Thigh pain Ambulatory dysfunction Constipation due to opioid therapy Hypertriglyceridemia Chronic diarrhea History of pulmonary embolism roughly 15yrs ago--unknown cause--no blood thinners Adjustment disorder with mixed anxiety and depressed mood IBS (irritable bowel syndrome) Unspecified disorder of kidney and ureter Onychocryptosis Migraine Gastric polyp Costochondritis Cervicalgia Acute pancreatitis Hyperosmolar hyperglycemic state (HHS) Hypertriglyceridemia Incarcerated left inguinal hernia Fever Chronic back pain History of chest pain COVID-19 11/08/2022 @ [facility]--head cold symptoms, slight cough--no symptoms now TIA (transient ischemic attack) "more than 15yrs ago"--unknown cause, no deficits--no neurologist Surgical History S/P left inguinal hernia repair (03/26/23) History of surgery (07/24/23) History of fusion of cervical spine History of repair of right rotator cuff History of bladder suspension procedure History of laparoscopy History of esophagogastroduodenoscopy (EGD) History of colonoscopy History of tooth extraction Hx of cholecystectomy H/O tubal ligation H/O: hysterectomy H/O hernia repair S/P coronary artery stent placement H/O cardiac catheterization Family History Mother Respiratory arrest Coronary heart disease Hypertension Father Cancer Sister Diabetes Multiple sclerosis Other No family history of adverse response to anesthesia Social History Smoking Status: Never smoker Tobacco Type: Cigarettes Age Started Using Tobacco: 18; Age Quit Using Tobacco: 36; packs per day: 1; Second Hand Exposure: No; Do You Dip or Chew Tobacco: No; Hx Alcohol Use: No Hx Substance Use: No Preferred Language: Hungarian Communication Ability: Effective Visual Impairment: No Limitations [employer] Required: No Beliefs That Will Affect Care: None Current Living Situation: Spouse and Other Current Living Situation Comment: granddaughter current occupational status: retired 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 Feels Safe at Home: Yes Diet: regular Dental Care, Regularly: No Seatbelt Use: always Sunscreen Use: No Assistive Devices: Cane and Walker Review of Systems Review of Systems: as per HPI Physical Exam Physical Exam: Constitutional: no acute distress HEENT: NCAT, no conjunctival injection CV: extremities well-perfused, no LE edema Resp: no increased work of breathing GI: nondistended, normal bowel sounds MSK: no gross deformities Skin: warm, dry, no rash appreciated Neuro: alert, oriented, no focal neurologic deficit appreciated Results & Data Results & Data Vital Signs (Past 12 Hours) Vital Signs Temp Pulse Pulse Resp BP BP Pulse Ox 08/07/24 20:33 62 16 170/99 H 97 08/07/24 20:05 61 08/07/24 19:30 62 14 180/102 H 95 08/07/24 18:29 64 18 193/102 H 95 08/07/24 17:33 66 18 196/103 H 96 08/07/24 16:09 62 18 182/104 H 98 08/07/24 16:06 62 08/07/24 15:24 95 08/07/24 15:23 63 18 157/91 H 95 08/07/24 14:39 36.7 C 67 20 155/83 H 95 O2 Del Method 08/07/24 20:33 08/07/24 20:05 08/07/24 19:30 08/07/24 18:29 Room Air 08/07/24 17:33 Room Air 08/07/24 16:09 Room Air 08/07/24 16:06 08/07/24 15:24 Room Air 08/07/24 15:23 Room Air 08/07/24 14:39 Room Air Supervising Physician Co-Signing Physician Notes I personally examined the patient and verified all mcknight points of history and exam, discussed case, and agree with decision making with Dr Bond send to the hospital predominantly because of sugar of almost 600. She has a lot of chronic pain related to her fibromyalgia back pain and neuropathy, but nothing seems to be acutely arrived as it relates to her sugars, just the readings. She notes that she is willing to make lifestyle change. She did drink maybe 8 ounces of Sprite earlier today. Vitals noted, in general she is awake and alert pleasant no distress. HEENT normocephalic atraumatic mucous membranes moist. Breathing unlabored no accessory muscle use good effort. Skin without rashes pallor or icterus. Neuro without focal deficits. Labs and diagnostics noted severely uncontrolled type 2 diabetessurprisingly she looks very compensated. Simply based on her overall sugar values she has to have some degree of dehydration from osmotic diuresistherefore while she has been given a liter of fluid in the ER we will run her with maintenance fluids and follow. Basal bolus insulin. Interestingly, she did response to 5 units of insulin here with an improvement of about 170 and her sugar, and if she is truly on what she is prescribed, she would be on about 100 units of insulin a daywhich makes me wonder how much she is actually taking at home. Because of this, we will start with about 30 units of insulin per 24 hourshalf basal and then bolus with a carb ratio of about 1-15, and titrate from there. As a relates to her dietit sounds like she probably does eat a lot of simple starchy and bread and sugar laden carbsI asked her to do "homework" overnight and think about all of the carbohydrates she typically eats as well as her typical "worst" day so that we can hopefully soccer coach her on lifestyle change. I suspect with massive lifestyle change her diabetes would be much easier to control, and at least in our discussions right now she seems to be willing. DVT proph - lovenox (5) Opioid dependence Substance use status: uncomplicated Qualified Code(s): F11.20 - Opioid dependence, uncomplicated
--- NOTE | 2024-08-07 22:33 | Billing Data ---
Date of Service August 07, 2024 Coding Level of Care Code 83344 INT INP/OBS CARE
--- NOTE | 2024-08-07 22:34 | Billing Data ---
Date of Service August 07, 2024 Coding Level of Care Code 15276 INT INP/OBS CARE
[2024-08-07] MEDS ORDERED: POLYETHYLENE (MIRALAX) 17 GM PACK PO PRN (22:45)
[2024-08-07] MEDS ORDERED: ACETAMINOPHEN 325 MG TAB PO PRN ×2 (22:45→23:33)
[2024-08-07] MEDS ORDERED: DEXTROSE 50% 50 ML SYRINGE IV PRN (22:45)
[2024-08-07] MEDS ORDERED: GLUCOSE 40% GEL 15 GM TUBE PO PRN (22:45)
[2024-08-07] MEDS ORDERED: ALUMINUM/MAGNESIUM SUSP 30 ML UDC PO PRN (22:45)
[2024-08-07] MEDS ORDERED: CARBOHYDRATES FOR HYPOGLYCEMIA PO PRN (22:45)
[2024-08-07] MEDS ORDERED: SENNA 8.6 MG TAB PO PRN (22:45)
[2024-08-07] MEDS ORDERED: ONDANSETRON INJ 2 MG/ML 2 ML VIAL IV PRN (22:45)
[2024-08-07] MEDS ORDERED: GLUCOSE 10 TAB/TUBE PO PRN (22:45)
[2024-08-07] MEDS ORDERED: GLUCAGON FOR INJ 1 MG VIAL SQ PRN (22:45)
[2024-08-07] MEDS: BACLOFEN 10 MG TAB PO PRN (22:57)
[2024-08-07] MEDS: oxyCODONE/APAP 7.5/325MG TAB PO PRN (22:57)
[2024-08-07] MEDS: METOPROLOL SUCC 25MG EXT REL TAB PO SCH (23:17)
[2024-08-07] MEDS: SERTRALINE HCL 50 MG TABLET PO SCH (23:18)
[2024-08-07] MEDS: PANTOprazole 40 MG TAB PO SCH (23:18)
[2024-08-07] MEDS: ASPIRIN 81 MG ECTAB PO SCH (23:18)
[2024-08-07] MEDS: traZODone HCL 100 MG TAB PO SCH (23:18)
[2024-08-07] MEDS: LACTATED RINGER'S 1,000 ML IV SCH (23:19)
[2024-08-07] MEDS: GABAPENTIN 800 MG TAB PO SCH (23:19)
[2024-08-07] MEDS: INSULIN ASPART PER UNIT CHARGE SC SCH (23:31)
[2024-08-07] MEDS: LANTUS PER UNIT CHARGE SQ SCH (23:31)
[2024-08-07] MEDS: MELATONIN 3 MG TAB PO PRN (23:31)
[2024-08-08] MEDS: INSULIN ASPART PER UNIT CHARGE SC STA (03:22)
[2024-08-08] MEDS: FENOFIBRATE NANOCRYSTALLIZED 145 MG TABLET PO SCH (08:23)
[2024-08-08] MEDS: ENOXAPARIN INJ 40 MG/0.4 ML SYR SQ SCH (08:23)
[2024-08-08] MEDS: LOSARTAN POTASSIUM 50 MG TAB PO SCH (08:23)
[2024-08-08 09:15] LABS: BUN Creatinine Ratio 18.5 (10-20); Calcium 9.2 mg/dl (8.6-10.3); Creatinine Clr Calc Pharmacy 114.7 ml/min; Potassium 3.2 mmol/L (3.5-5.1)
[2024-08-08 09:17] LABS: Estimated Average Glucose 369 mg/dl; Hemoglobin A1C 14.5 % (4.5-5.6)
--- NOTE | 2024-08-08 09:47 | Hospitalist Progress Note ---
Date of Service August 08, 2024 Assessment & Plan (1) Acute hyperglycemia: (2) Hyperglycemia due to type 2 diabetes mellitus: (3) Non compliance w medication regimen: (4) Hypertension: (5) Opioid dependence: (6) Neuropathy: (7) JOYCE (generalized anxiety disorder): (8) Depression: (9) CAD (coronary artery disease): (10) GERD with esophagitis: (11) Hyperlipidemia: Plan 63 year-old female with a history of uncontrolled type 2 diabetes mellitus (last reported A1c 11.3%), hypertension, hyperlipidemia, coronary artery disease, opioid dependence, chronic pain, depression/anxiety, and GERD, presenting from PCP for acute hyperglycemia (BSG 462 on arrival), without evidence of DKA or HHS. After receiving 5 units of insulin, blood sugar decreased to 298, now trending in the low 200s. (1) Acute Hyperglycemia // (2) Uncontrolled T2DM: BSG now trending in low 200s after correction, but current response is disproportionate to her home insulin regimen (Lantus 30U BID + prandial Novolog with total daily dose up to 105U), raising concern for medication non-adherence, despite patients report of compliance. UA positive for glucosuria (3+), no ketones supports osmotic diuresis but not DKA. No evidence of HHS (normal mentation, labs not suggestive of severe hyperosmolar state). Increase Lantus 10U BID and sliding scale Novolog (CF 30, CR 15). Tighten Carb ratio from 15 to 12 IV LR @ 125 mL/hr to support hydration and mitigate osmotic fluid loss. Check BSG ACHS and titrate insulin as needed to target preprandial <140 and postprandial <180. Reinforce insulin use, injection technique, timing relative to meals. Continue to assess barriers to adherence. Patient notes that she has some trouble with vision, this could potentially be a barrier for her Will check C peptide and fasting glucose in the AM (NPO ~10PM) as requested her prior endocrine notes to help her qualify for a pump as an outpatient; please check POC glucose prior to C peptide draw as BS must be below 225 for the C peptide lab per endocrinology (3) HTN, (4) CAD : Continue home losartan, metoprolol, aspirin. Monitor BP qshift recent readings elevated but asymptomatic. Continue telemetry if concerns for silent ischemia arise. (5) HLD:continue home fenofibrate (statin on hold per outpatient note from 07/14) (6) Chronic pain: continue home baclofen, gabapentin, acetaminophen-oxycodone (7) Depression/Anxiety: continue home sertraline (8) GERD: continue home Protonix Dispo: Admit med-surg FEN/GI: LR @125mL/hr, CC diet VTE ppx: Lovenox Full Code Admission and Anticipated Discharge Date Admission Date: August 07, 2024 Supervising Physician Co-Signing Physician Notes I personally examined the patient and verified mcknight points of history and exam, discussed case, and agree with decision making and plan documented by Dr. Chakraborty and Juan Pablo GODDARD. Blood glucose levels improving with insulin therapy. Will obtain a.m. labs to hopefully help patient get approved for an insulin pump. She has been struggling with her CGM. Patient complaining of severe diffuse body pain consistent with a fibromyalgia flare. One-time dose of oral oxycodone 5 mg provided. Patient very upset about her vision loss, encouraged efforts to continue to improve her glycemic control. Subjective Saw the patient at the beside this morning. She reports that while at her PCP, her sugars were found to be in the 500s. When she presented to the ED, her sugar was found to 462 and she was treated with 5 U of insulin which dropped sugars to 298. This prompted the question of medication management and adherance at home. She notes that she takes her 30 units of long acting insulin in the morning and her short acting with meals. She reports to me that she takes her blood sugars at home with each meal. She also notes that she has a dexcom that sometimes does not read her sugars accurately. She notes feeling asymptomatic today aside from a headache that is band like in nature. No acute confusion, n/v, constipation, diarrhea, or dizziness. She does report polyuria and polydipsia but no dysuria. She does note that she has a history of diabetic retinopathy and neuropathy which has been previously mentioned to her. She sees ophthalmology for these issues. Results & Data Results & Data Vital Signs (Past 12 Hours) Vital Signs Temp Pulse Pulse Pulse Resp BP BP 08/08/24 08:01 36.7 C 59 L 17 163/79 H 08/08/24 03:05 54 L 132/75 08/08/24 01:05 58 L 129/75 08/07/24 22:30 36.7 C 63 16 08/07/24 22:24 36.8 C 60 19 186/96 H BP Pulse Ox O2 Del Method 08/08/24 08:01 96 Room Air 08/08/24 03:05 08/08/24 01:05 08/07/24 22:30 194/100 H 96 Room Air 08/07/24 22:24 97 Room Air Resident Activity Tracking Resident Involvement: Resident Care Provided Care Provided: Adult Hospital Medicine (5) Opioid dependence Substance use status: uncomplicated Qualified Code(s): F11.20 - Opioid dependence, uncomplicated
[2024-08-08] MEDS: POTASSIUM CHLORIDE CRTAB 20 MEQ TABCR PO STA (10:41)
[2024-08-08] MEDS: ACETAMINOPHEN 325 MG TAB PO ONE (16:56)
[2024-08-08] MEDS: oxyCODONE HCL IR 5 MG TAB (IMMEDIATE RELEASE) PO ONE (16:57)
[2024-08-08] MEDS: LANTUS PER UNIT CHARGE SQ SCH (21:00)
[2024-08-09] MEDS: INSULIN ASPART PER UNIT CHARGE SC SCH ×2 (06:37→09:51)
[2024-08-09 06:43] LABS: Hematocrit (blood only) 35.3 % (37.0-47.0); Hemoglobin 12.7 g/dl (12.0-16.0); Mean Corpuscular Hemoglobin 30.5 pg (25.0-34.0); Mean Corpuscular Volume 84.9 fL (80.0-100.0); Mean Platelet Volume 10.4 fL (9.4-12.4); Platelet Count 179 K/uL (130-400); RDW Coefficient of Variation 12.3 % (11.5-14.5); Red Blood Count 4.16 M/uL (4.20-5.40)
[2024-08-09 06:59] LABS: BUN Creatinine Ratio 18.5 (10-20); Calcium 8.7 mg/dl (8.6-10.3); Creatinine Clr Calc Pharmacy 116.4 ml/min; Potassium 3.5 mmol/L (3.5-5.1)
--- NOTE | 2024-08-09 09:00 | Hospitalist Progress Note ---
Date of Service August 09, 2024 Assessment & Plan (1) Acute hyperglycemia: (2) Hyperglycemia due to type 2 diabetes mellitus: (3) Non compliance w medication regimen: (4) Hypertension: (5) Opioid dependence: (6) Neuropathy: (7) JOYCE (generalized anxiety disorder): (8) Depression: (9) CAD (coronary artery disease): (10) GERD with esophagitis: (11) Hyperlipidemia: Plan Pt is a 63 yo female with a PMH of uncontrolled type 2 diabetes mellitus, hypertension, hyperlipidemia, coronary artery disease, opioid dependence, chronic pain, depression/anxiety, and GERD presenting from PCP for acute hyperglycemia (BSG 462 on arrival) but without evidence of DKA or HHS. After receiving 5 units of insulin, blood sugar decreased to 298. Hyperglycemia in the setting of chronically uncontrolled T2DM - no evidence of HHS/DKA - unclear etiology as pt reports compliance with her home insulin regimen (30u glargine BID with SSI at meals); however, with pt receiving insulin here at the hospital her BS have been downtrending; pt's vision decreased which may be contributing as barrier to adherence with insulin regimen - A1c 14.5% - fasting BS and C peptide drawn this AM (once BS <225) to hopefully help facilitate acquiring a pump as has been described in prior endocrine notes - plan for discharge tomorrow once BS under better control - recommend close PCP/endocrine f/u for DM management HTN/CAD - continue home losartan, metoprolol, aspirin HLD - continue home fenofibrate (statin on hold per outpatient note from 07/14) - will collect lipid panel tomorrow AM Chronic pain - continue home baclofen, gabapentin, acetaminophen 325mg-oxycodone 7.5mg - of note, pt states she is only taking baclofen 10mg before bed and gabapentin 400mg once per day as she cannot tolerate higher doses and she has "weaned herself down" - she did have a pain flare yesterday that she states is her "first in the last 2 years"; after extensive chart review, acknowledging PCP's concerns with chronic opioid use, and discussion with pt, she was given a one time extra dose of PO oxycodone 5mg with tylenol 650mg (originally offered only tylenol which she stated "would not work", ibuprofen which upsets her stomach, increase in gabapentin or baclofen which she cannot tolerate as described above) - would avoid any additional opioid medications as she describes most of her pain is from neuropathy and fibromyalgia (of which neither condition is treated effectively with opioids) - avoid IV pain medications - no change to her chronic pain regimen made while hospitalized being conscientious of not increasing her total daily MMEs Depression/Anxiety - continue home sertraline GERD - continue home Protonix Dispo: med/surg, plan for discharge home tomorrow Diet: carb consistent VTE ppx: Lovenox Full Code Admission and Anticipated Discharge Date Admission Date: August 07, 2024 Supervising Physician Co-Signing Physician Notes I personally examined the patient and verified mcknight points of history and exam, discussed case, and agree with decision making and plan documented by Dr. Chakraborty. Uncontrolled diabetes, A1c 14.5%, blood glucose levels improving with insulin therapy, c peptide level pending, hopefully will help patient get approved for an insulin pump. She has been struggling with her CGM. Repeat lipids ordered, on fenofibrate, would benefit from restarting rosuvastatin (on hold from pancreatitis hospitalization). Increase losartan to BID for improved BP control. Subjective Pt doing well this AM. No concerns from overnight. She is still in pain today but much better than yesterday. Her BS remain high and she would feel better going home once her BS are more under control. Review of Systems Review of Systems: As per HPI Physical Exam Physical Exam: Constitutional: well appearing, no acute distress HEENT: normocephalic, no conjunctival injection CV: regular rhythm, regular rate, no murmur, no LE edema Respiratory: Clear to auscultation bilaterally. No rhonchi, wheezes, or crackles. No increased work of breathing MSK: no gross deformities noted Skin: warm, dry, no rashes Neuro: alert, no FND noted Results & Data Results & Data Vital Signs (Past 12 Hours) Vital Signs Temp Pulse Resp BP Pulse Ox O2 Del Method 08/09/24 07:30 36.8 C 59 L 16 163/83 H 95 Room Air Resident Activity Tracking Resident Involvement: Resident Care Provided Care Provided: Adult Hospital Medicine (5) Opioid dependence Substance use status: uncomplicated Qualified Code(s): F11.20 - Opioid dependence, uncomplicated
[2024-08-09] MEDS: LANTUS PER UNIT CHARGE SQ SCH ×2 (09:52→21:09)
[2024-08-09] MEDS ORDERED: Nursing to Pharmacy Communication SCH (11:15)
[2024-08-09] MEDS: LOSARTAN POTASSIUM 50 MG TAB PO SCH (21:03)
[2024-08-10 07:18] LABS: Hematocrit (blood only) 37.4 % (37.0-47.0); Hemoglobin 13.4 g/dl (12.0-16.0); Mean Corpuscular Hemoglobin 30.8 pg (25.0-34.0); Mean Corpuscular Hgb Conc 35.8 g/dL (32.0-36.0); Mean Platelet Volume 10.3 fL (9.4-12.4); Platelet Count 198 K/uL (130-400); RDW Coefficient of Variation 12.4 % (11.5-14.5); Red Blood Count 4.35 M/uL (4.20-5.40); White Blood Count 6.47 K/ul (4.8-10.8)
[2024-08-10 07:31] VITALS: RESP 16
[2024-08-10 07:47] LABS: Anion Gap 8 (3-11); BUN Creatinine Ratio 20.7 (10-20); Blood Urea Nitrogen 12 mg/dl (6-23); Calcium 9.3 mg/dl (8.6-10.3); Carbon Dioxide 28 mmol/L (21-32); Chloride 102 mmol/L (98-107); Cholesterol 279 mg/dl (0-200); Creatinine Clr Calc Pharmacy 108.4 ml/min; Glucose 196 mg/dl (70-99(Fasting)); HDL Cholesterol 33 mg/dl; Potassium 3.2 mmol/L (3.5-5.1); Sodium 138 mmol/L (136-145); Triglycerides 460 mg/dl (0-150)
[2024-08-10 07:58] LABS: Chol HDL Ratio 8.5 (0-5)
[2024-08-10] MEDS: POTASSIUM CHLORIDE / WTR 10 MEQ/100 ML PLCT IV SCH (09:23)
[2024-08-10] MEDS: POTASSIUM CHLORIDE CRTAB 20 MEQ TABCR PO STA (09:57)
--- NOTE | 2024-08-10 10:00 | Discharge Summary ---
Discharge Summary Date of Service August 10, 2024 Principal Dx & Hospital Course #1 = Principal Diagnosis (1) Acute hyperglycemia: (2) Hyperglycemia due to type 2 diabetes mellitus: (3) Non compliance w medication regimen: (4) Hypertension: (5) Opioid dependence: (6) Neuropathy: (7) JOYCE (generalized anxiety disorder): (8) Depression: (9) CAD (coronary artery disease): (10) GERD with esophagitis: (11) Hyperlipidemia: Plan Pt is a 63 yo female with a PMH of uncontrolled type 2 diabetes mellitus, hypertension, hyperlipidemia, coronary artery disease, opioid dependence, chronic pain, depression/anxiety, and GERD presenting from PCP for acute hyperglycemia (BSG 462 on arrival) but without evidence of DKA or HHS. After receiving 5 units of insulin, blood sugar decreased to 298. Hyperglycemia in the setting of chronically uncontrolled T2DM - no evidence of HHS/DKA - unclear etiology as pt reports compliance with her home insulin regimen (30u glargine BID with SSI at meals); however, with pt receiving insulin here at the hospital her BS have been downtrending; pt's vision decreased which may be contributing as barrier to adherence with insulin regimen - A1c 14.5% - fasting BS and C peptide drawn this AM (once BS <225) to hopefully help facilitate acquiring a pump as has been described in prior endocrine notes - plan for discharge tomorrow once BS under better control - recommend close PCP/endocrine f/u for DM management HTN/CAD - continue home losartan, metoprolol, aspirin HLD - continue home fenofibrate (statin on hold per outpatient note from 07/14) - will collect lipid panel tomorrow AM Chronic pain - continue home baclofen, gabapentin, acetaminophen 325mg-oxycodone 7.5mg - of note, pt states she is only taking baclofen 10mg before bed and gabapentin 400mg once per day as she cannot tolerate higher doses and she has "weaned herself down" - she did have a pain flare yesterday that she states is her "first in the last 2 years"; after extensive chart review, acknowledging PCP's concerns with c hronic opioid use, and discussion with pt, she was given a one time extra dose of PO oxycodone 5mg with tylenol 650mg (originally offered only tylenol which she stated "would not work", ibuprofen which upsets her stomach, increase in gabapentin or baclofen which she cannot tolerate as described above) - would avoid any additional opioid medications as she describes most of her pain is from neuropathy and fibromyalgia (of which neither condition is treated effectively with opioids) - avoid IV pain medications - no change to her chronic pain regimen made while hospitalized being conscientious of not increasing her total daily MMEs Depression/Anxiety - continue home sertraline GERD - continue home Protonix Dispo: med/surg, plan for discharge home tomorrow Diet: carb consistent VTE ppx: Lovenox Full Code Admission HPI Per Admitting Provider 63 year old female with PMHx that includes uncontrolled T2DM, HTN, HLD, CAD, chronic pain with opioid dependence, depression/anxiety, and GERD presenting from PCP office after finger stick glucose noted to be 562. Patient states that she did not administer any insulin today but reports otherwise being adherent. Current regimen is Lantus 30U BID and sliding scale Novolog coverage with up to 15 units per meal. She states that she checks blood sugar three times daily before meals, reports highest reading in recent past of ~220. Last time she ate was 1000 this morning. +polydipsia and polyuria, otherwise states she feels at her baseline. Denies N/V/D, recent illness, fever/chills. ED Course: BSG on arrival 462. Patient given 5 units of insulin. BSG check 2 hours later 298. S/P 1L NSS Discharge Exam GENERAL APPEARANCE NAD, activity normal for age, well developed/ well nourished, no cyanosis, pallor, or diaphoresis. EYES lids/conjunctiva normal. EARS/NOSE/THROAT Mucous membranes moist, nares normal, lips/teeth normal uvula midline without oral pharyngeal erythema, exudate or swelling TMs normal bilaterally. No lymphangitis/lymphedema. HEAD/NECK normocephalic atraumatic, no facial trauma, neck is supple. RESPIRATORY respiratory effort normal, speaks in full sentences, no tripod position, no accessory muscle use. Lungs clear to auscultation without rhonchi, wheezes, rales CARDIAC Regular rate and rhythm, no edema. ABDOMINAL Soft, ND/NT. No evidence of fluid wave. No pulsatile masses on exam, rebound tenderness, Schmitz sign or pain over Mcburney's point. MUSCLES/EXTREMITIES No abnormal range of motion, no swelling. SKIN Warm, pink and dry. No rashes, dermatoses, petechiae or lesions. NEUROLOGICAL Speech is clear and appropriate. Normal level of consciousness. Gait and coordination are normal. 5/5 strength in all extremities. PSYCH Normal mood and affect. Judgement/competence is appropriate Discharge Plan Discharge Items Patient Disposition: Home - Self-Care Reason For Visit: HIGH BSG Discharge Diagnosis: diabetes with hyperglycemia Condition on Discharge: Fair Activity: Resume your previous activity Non-emergency contact: Primary Care Provider Call non-emergency contact if: you have any medication questions Follow-up/Referrals: Khoa Tracy, [Primary Care Provider] - Diet: Carb Consistent or DM2 Addtl Attending Provider Instructions: Follow up with PMD in 1 week Pending Studies at Discharge: No Stand-Alone Forms: My [employer], Smoking Cessation Medications and DC Order Prescriptions: Continued ondansetron 4 mg tablet,disintegrating 4 mg translingual Q12H PRN (Reason: Nausea) Qty: 30 0RF sertraline 50 mg tablet 150 mg PO HS 90 Days Qty: 270 3RF trazodone 100 mg tablet 100 mg PO HS Qty: 90 3RF gabapentin 800 mg tablet 800 mg PO QID Qty: 120 5RF baclofen 10 mg tablet 10 mg PO TID PRN (Reason: muscle spasm) Qty: 270 0RF oxycodone-acetaminophen 7.5-325 mg tablet 1 tab PO TID PRN (Reason: Pain) 30 Days Qty: 90 0RF Hold Instructions: Resume on 08/05/23. resume after tapering off oral morphine (DME) Dexcom G7 Sensor Device See Rx Instructions .Route Qty: 3 11RF Rx Instructions: Use for Continuous Glucose Monitoring Glucagon Emergency Kit (human) 1 mg recon soln 1 mg subcut Q20M PRN (Reason: hypoglycemia) Qty: 1 5RF Rx Instructions: until target blood sugar attained (DME) pen needle, diabetic [BD Ultra-Fine Mini Pen Needle] 31 gauge x 3/16" needle See Rx Instructions .Route Qty: 600 3RF Rx Instructions: use a new needle with each injection from insulin pens 6 x daily metoprolol succinate 25 mg tablet extended release 24 hr 37.5 mg PO HS Qty: 45 8RF rosuvastatin 20 mg tablet 20 mg PO DAILY Qty: 30 2RF (DME) blood-glucose meter [OneTouch Verio Flex meter[place] [facility] [place] Rx Instructions .Route Qty: 1 0RF Rx Instructions: Use to check blood glucose 4 times daily (DME) OneTouch Verio test strips Strip See Rx Instructions .Route Qty: 400 3RF Rx Instructions: Use to check blood glucose 4x daily (DME) lancets [OneTouch Delica Plus Lancet] 33 gauge misc See Rx Instructions .Route Qty: 400 3RF Rx Instructions: check blood sugar 4 times a day losartan 50 mg tablet 50 mg PO DAILY Qty: 90 3RF insulin glargine [Basaglar KwikPen U-100 Insulin] 100 unit/mL (3 mL) insulin pen 30 unit SUBCUT BID insulin lispro [Humalog KwikPen Insulin] 100 unit/mL insulin pen See Rx Instructions SUBCUT DAILY Rx Instructions: takes on a sliding scale subcutaneously daily; Inject with meals per sliding scale; TDD 35 units fenofibrate nanocrystallized 145 mg Tablet 145 mg PO QAM Qty: 30 0RF aspirin 81 mg Tablet,Chewable 81 mg PO HS sennosides [Senokot] 8.6 mg tablet 17.2 mg PO QAM PRN (Reason: Constipation) Rx Instructions: OTC naloxone 4 mg/actuation spray,non-aerosol 1 spray intranasal DIRECTED PRN (Reason: OVERDOSE) Rx Instructions: one spray as needed for decreased responsiveness/overdose and call 911, may repeat dose in 2-3 minutes if necessary pantoprazole 40 mg tablet,delayed release (DR/EC) 40 mg PO BID Rx Instructions: TAKE ONE TABLET BY MOUTH TWICE A DAY Discharge Orders: Discharge Order (Routine); Ordered 08/10/24 Ordered By: Carter Joseph Admission Data Admit Date/Time: 08/07/24 21:27 Attending Provider: Carter Joseph Admit Provider: Billy Bond Primary Care Provider: hKoa Tracy Other Providers: Gianni Srinivasan Hospital Stay Data Consultations 08/07/24 20:10 ED Decision to Admit Stat Diagnostic Imagining Performed 08/07/24 16:48 CT head/brain wo con Stat Pending Results Patient Have Any Pending Studies at Discharge: No Discharge Instructions Given to Patient (Per Discharging Provider) Follow up with PMD in 1 week Total Time Total Time Spent Total Time Spent (In Minutes): 50 Coding Level of Care Code 84234 INP/OBS DISCH >30 MIN Diagnoses Acute hyperglycemia R73.9 Hyperglycemia due to type 2 diabetes mellitus E11.65 Non compliance w medication regimen Z91.148 Hypertension I10 Uncomplicated opioid dependence F11.20 Substance use status: uncomplicated Neuropathy G62.9 JOYCE (generalized anxiety disorder) F41.1 Depression F32.9 CAD (coronary artery disease) I25.10 GERD with esophagitis K21.00 Hyperlipidemia E78.5
[2024-08-10] MEDS: PNEUMOCOCCAL VACCINE (PCV20) 20-VAL CONJ-DIP CRM/PF 0.5 ML SYR IM ONE (11:11)
[2024-08-10] MEDS ORDERED: LANTUS PER UNIT CHARGE SQ SCH (21:00)
[2024-08-10] MEDS: LANTUS PER UNIT CHARGE SQ SCH (21:39)
[2024-08-11 07:53] VITALS: BP 173/93; PULSE 60; TEMP 98.1; O2SAT 94
--- NOTE | 2024-08-11 10:10 | Hospitalist Progress Note ---
Date of Service August 11, 2024 Assessment & Plan (1) Acute hyperglycemia: (2) Hyperglycemia due to type 2 diabetes mellitus: (3) Non compliance w medication regimen: (4) Hypertension: (5) Opioid dependence: (6) Neuropathy: (7) JOYCE (generalized anxiety disorder): (8) Depression: (9) CAD (coronary artery disease): (10) GERD with esophagitis: (11) Hyperlipidemia: Plan Pt is a 63 yo female with a PMH of uncontrolled type 2 diabetes mellitus, hypertension, hyperlipidemia, coronary artery disease, opioid dependence, chronic pain, depression/anxiety, and GERD presenting from PCP for acute hyperglycemia (BSG 462 on arrival) but without evidence of DKA or HHS. After receiving 5 units of insulin, blood sugar decreased to 298. Hyperglycemia in the setting of chronically uncontrolled T2DM - no evidence of HHS/DKA - unclear etiology as pt reports compliance with her home insulin regimen (30u glargine BID with SSI at meals); however, with pt receiving insulin here at the hospital her BS have been downtrending; pt's vision decreased which may be contributing as barrier to adherence with insulin regimen - A1c 14.5% - fasting BS and C peptide drawn this AM (once BS <225) to hopefully help facilitate acquiring a pump as has been described in prior endocrine notes - plan for discharge tomorrow once BS under better control - recommend close PCP/endocrine f/u for DM management - blood glucose 173 this am, clear for d/c home HTN/CAD - continue home losartan, metoprolol, aspirin HLD - continue home fenofibrate (statin on hold per outpatient note from 07/14) - will collect lipid panel tomorrow AM Chronic pain - continue home baclofen, gabapentin, acetaminophen 325mg-oxycodone 7.5mg - of note, pt states she is only taking baclofen 10mg before bed and gabapentin 400mg once per day as she cannot tolerate higher doses and she has "weaned herself down" - she did have a pain flare yesterday that she states is her "first in the last 2 years"; after extensive chart review, acknowledging PCP's concerns with chronic opioid use, and discussion with pt, she was given a one time extra dose of PO oxycodone 5mg with tylenol 650mg (originally offered only tylenol which she stated "would not work", ibuprofen which upsets her stomach, increase in nadeem apentin or baclofen which she cannot tolerate as described above) - would avoid any additional opioid medications as she describes most of her pain is from neuropathy and fibromyalgia (of which neither condition is treated effectively with opioids) - avoid IV pain medications - no change to her chronic pain regimen made while hospitalized being conscientious of not increasing her total daily MMEs Depression/Anxiety - continue home sertraline GERD - continue home Protonix Dispo: med/surg, plan for discharge home tomorrow Diet: carb consistent VTE ppx: Lovenox Full Code Admission and Anticipated Discharge Date Admission Date: August 07, 2024 Subjective No events overnight. BGL 173 this am. Review of Systems Review of Systems: CONST: Negative for fever, body aches and chills. HENT: Negative for neck pain/stiffness, headache, congestion, sore throat, swelling. EYES: Negative for discharge/pain or vision changes. RESP: Negative for cough/hemoptysis and shortness of breath. CV: Negative chest pain, difficulty breathing, palpitations. ABD: Negative pain, nausea, vomiting. : Negative increase frequency, dysuria, blood in urine or stool. MUSC: Negative for muscle aches, edema. SKIN: Negative rash, lesions/sores. NEURO: Negative headache, dizziness, weakness. Physical Exam Physical Exam: GENERAL APPEARANCE NAD, activity normal for age, well developed/ well nourished, no cyanosis, pallor, or diaphoresis. EYES lids/conjunctiva normal. EARS/NOSE/THROAT Mucous membranes moist, nares normal, lips/teeth normal uvula midline without oral pharyngeal erythema, exudate or swelling TMs normal bilaterally. No lymphangitis/lymphedema. HEAD/NECK normocephalic atraumatic, no facial trauma, neck is supple. RESPIRATORY respiratory effort normal, speaks in full sentences, no tripod position, no accessory muscle use. Lungs clear to auscultation without rhonchi, wheezes, rales CARDIAC Regular rate and rhythm, no edema. ABDOMINAL Soft, ND/NT. No evidence of fluid wave. No pulsatile masses on exam, rebound tenderness, Schmitz sign or pain over Mcburney's point. MUSCLES/EXTREMITIES No abnormal range of motion, no swelling. SKIN Warm, pink and dry. No rashes, dermatoses, petechiae or lesions. NEUROLOGICAL Speech is clear and appropriate. Normal level of consciousness. Gait and coordination are normal. 5/5 strength in all extremities. PSYCH Normal mood and affect. Judgement/competence is appropriate Results & Data Results & Data Vital Signs (Past 12 Hours) Vital Signs Temp Pulse Resp BP Pulse Ox O2 Del Method 08/11/24 07:51 36.7 C 60 16 173/93 H 94 Room Air 08/11/24 07:19 Room Air PG Care Time/CCT Total # of Minutes Spent Total Time Spent with Patient: Total time spent is greater than 50% in coordination of care (as documented) at patient's floor/unit and/or counseling patient: Coding Level of Care Code 83880 SUB INP/OBS CARE 2/35MIN Diagnoses Acute hyperglycemia R73.9 Hyperglycemia due to type 2 diabetes mellitus E11.65 Non compliance w medication regimen Z91.148 Hypertension I10 Uncomplicated opioid dependence F11.20 Substance use status: uncomplicated Neuropathy G62.9 JOYCE (generalized anxiety disorder) F41.1 Depression F32.9 CAD (coronary artery disease) I25.10 GERD with esophagitis K21.00 Hyperlipidemia E78.5 (5) Opioid dependence Substance use status: uncomplicated Qualified Code(s): F11.20 - Opioid dependence, uncomplicated
== END 2024-08-11 12:36 | disposition home or self-care (01) | DRG 638 ==
LOC: ED 14:32 → 3N 21:27 → SUATTDRO 21:27 → 3N 22:24